=== PATIENT | female | born 1945 | race Hispanic/Latino ===

== ENCOUNTER 2016-12-03 21:07 | Inpatient (IN) | payer MEDICARE ==
--- NOTE | 2016-12-03 21:52 | ED PDOC ---
Arrival/HPI - General Chief Complaint: Abdominal Pain Time Seen by Provider: 12/03/16 21:11 Historian: Patient - History of Present Illness Narrative History of Present Illness (Text): 12/03/16 21:52 Paola Morgan is a 71 year old female, whose past medical history includes diverticulosis, valvular heart disease, and breast cancer (in remission), who presents to the Emergency department complaining of hematochezia. Patient states 1 hour prior to arrival she had 1 bright red bloody bowel movement with associated lower abdominal discomfort. Patient denies any fever, chills, chest pain, shortness of breath, nausea, vomiting, diarrhea, urinary symptoms, back pain, neck pain, headache, dizziness, or any other complaints. PMD: Dr. Judi Wilkes Time/Duration: 1 hour Symptom Course: Unchanged Activities at Onset: Light Modifying Factors (Text): none Context: Home Past Medical History - Provider Review Nursing Documentation Reviewed: Yes - Infectious Disease Hx of Infectious Diseases: None - Tetanus Immunization Tetanus Immunization: Unknown - Cardiac Other/Comment: LEAKY HEART VALVE - Pulmonary Hx Respiratory Disorders: No - Neurological Hx Neurological Disorder: No Hx Paralysis: No - HEENT Hx HEENT Disorder: No - Renal Hx Renal Disorder: No - Endocrine/Metabolic Hx Endocrine Disorders: No - Hematological/Oncological Hx Blood Transfusions: No Hx Cancer: Yes (BREAST) - Integumentary Hx Dermatological Disorder: No - Musculoskeletal/Rheumatological Hx Musculoskeletal Disorders: Yes Hx Arthritis: Yes - Genitourinary/Gynecological Hx Genitourinary Disorders: No - Psychiatric Hx Anxiety: Yes Hx Substance Use: No - Surgical History Other/Comment: BILAT MASTECTOMY - Anesthesia Hx Anesthesia: Yes - Suicidal Assessment Feels Threatened In Home Enviroment: No Family/Social History - Physician Review Nursing Documentation Reviewed: Yes Family/Social History: No Known Family HX Smoking Status: Never Smoked Hx Alcohol Use: No Hx Substance Use: No Hx Substance Use Treatment: No Allergies/Home Meds Allergies/Adverse Reactions: Allergies No Known Allergies Allergy (Verified 12/03/16 21:09) Home Medications: Home Meds Medication Instructions Recorded Confirmed Carvedilol [Coreg] 6.25 mg PO BID 08/28/16 12/03/16 Lansoprazole [Prevacid] 30 mg PO DAILY 08/28/16 12/03/16 Rosuvastatin Calcium [Crestor] 5 mg PO QPM 08/28/16 12/03/16 Review of Systems - Physician Review All systems were reviewed & negative as marked: Yes - Review of Systems Constitutional: Normal. absent: Fevers Eyes: Normal ENT: Normal Respiratory: Normal. absent: SOB, Cough Cardiovascular: Normal. absent: Other Gastrointestinal: Abdominal Pain, Hematochezia Genitourinary Female: Normal. absent: Dysuria, Frequency, Hematuria, Urine Output Changes Musculoskeletal: Normal. absent: Back Pain, Neck Pain Skin: Normal. absent: Rash Neurological: Normal. absent: Headache, Dizziness Endocrine: Normal Hemo/Lymphatic: Normal Psychiatric: Normal Physical Exam Vital Signs Reviewed: Yes Vital Signs Temp Pulse Resp BP Pulse Ox 12/04/16 02:57 92 H 16 112/72 97 12/04/16 00:45 79 18 105/57 L 97 12/03/16 21:10 97.5 F L 96 H 16 111/72 96 Temperature: Afebrile Blood Pressure: Normal Pulse: Regular Respiratory Rate: Normal Appearance: Positive for: Well-Appearing, Non-Toxic, Comfortable Pain Distress: None Mental Status: Positive for: Alert and Oriented X 3 - Systems Exam Head: Present: Atraumatic, Normocephalic Pupils: Present: PERRL Extroacular Muscles: Present: EOMI Conjunctiva: Present: Normal Mouth: Present: Moist Mucous Membranes Neck: Present: Normal Range of Motion Respiratory/Chest: Present: Clear to Auscultation, Good Air Exchange. No: Respiratory Distress, Accessory Muscle Use Cardiovascular: Present: Regular Rate and Rhythm, Normal S1, S2. No: Murmurs Abdomen: Present: Normal Bowel Sounds. No: Tenderness, Distention, Peritoneal Signs Rectal: Present: Other (Bright red blood on digital exam, no active bleeding) Back: Present: Normal Inspection Upper Extremity: Present: Normal Inspection. No: Cyanosis, Edema Lower Extremity: Present: Normal Inspection. No: Edema Neurological: Present: GCS=15, CN II-XII Intact, Speech Normal Skin: Present: Warm, Dry, Normal Color. 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 Differential Diagnosis include but are not limited to: GI bleed vs. diverticular disease Plan: -- CT Abdomen and Pelvis with IV contrast -- EKG -- Labs, blood type and screen -- IV fluids -- Protonix -- Reassess and disposition Prior Visits: Notes and results from previous visits were reviewed. On 04/04/2014, pt was seen in the Emergency department for headache. Pt was d/c home. Progress Notes: Reviewed EKG, NSR at 90 bpm. LAHB. Possible anterolateral infarct. 12/04/16 01:34 Reviewed radiology, CT Abdomen and Pelvis shows: 1. Mildly thickened appearance of the distal esophagus, correlate clinically for esophagitis. Small hiatal hernia. 2. Colonic diverticulosis. 3. Cystic 2.2 cm structure in the pancreatic neck, consider nonemergent followup. 12/04/16 01:[address] Bennett, present in Emergency department, who is aware and agrees with plan. Accepts pt in to hospitalist service. Pt will go to [facility] observation for GI bleed. 12/04/16 01:55 Case discussed with medical staff specialist supervisor photocomposition, who is aware and agrees with plan. - Lab Interpretations Lab Results: 12/03/16 22:38 12/03/16 22:38 Lab Results 12/03/16 22:38: WBC 9.6, RBC 3.99, Hgb 10.9 L, Hct 33.6 L, MCV 84.2, MCH 27.3, MCHC 32.4, RDW 15.2 H, Plt Count 190, MPV 11.1 H, PT 10.7, INR 0.99, APTT 22.1 L , Sodium 143, Potassium 3.3 L, Chloride 105, Carbon Dioxide 26, Anion Gap 15, BUN 24 H, Creatinine 1.0, Est GFR ( Amer) > 60, Est GFR (Non-Af Amer) 54 , Random Glucose 159 H, Calcium 8.7, Total Bilirubin 0.5, AST 18, ALT 29, Alkaline Phosphatase 79, Total Protein 7.4, Albumin 3.7, Globulin 3.7, Albumin/ Globulin Ratio 1.0 L 12/03/16 22:25: Blood Type A POSITIVE, Antibody Screen Negative, Crossmatch See Detail, BBK History Checked No verified bt I have reviewed the lab results: Yes - RAD Interpretation Narrative RAD Interpretations (Text): CT Abdomen and Pelvis shows: Lower thorax: Breast implants noted. Mild dependent atelectasis noted. A small hiatal hernia demonstrated. The distal esophagus appears mildly thickened. ABDOMEN: Liver: Unremarkable. No mass. Gallbladder and bile ducts: Unremarkable. No calcified stones. No ductal dilation. Pancreas: There is 2.2 cm cystic structure in the pancreatic neck. No ductal dilation. Spleen: A subcentimeter hypodensity in the spleen is present 2 small strictures. Adrenals: Unremarkable. No mass. Kidneys and ureters: There is a 2.2 cm cyst at the upper pole of the right kidney. No hydronephrosis. Stomach and bowel: Colonic diverticula are present. No obstruction. No mucosal thickening. Appendix: No findings to suggest acute appendicitis. PELVIS: Bladder: Unremarkable. No mass. Reproductive: Unremarkable as visualized. ABDOMEN and PELVIS: Intraperitoneal space: Unremarkable. No free air. No significant fluid collection. Bones/joints: Degenerative changes of the lumbar spine are present. No acute fracture. No dislocation. Soft tissues: A small fat-containing umbilical hernia is present. Vasculature: Mild aortoiliac atherosclerosis is present. No abdominal aortic aneurysm. Lymph nodes: Unremarkable. No enlarged lymph nodes. IMPRESSION: 1. Mildly thickened appearance of the distal esophagus, correlate clinically for esophagitis. Small hiatal hernia. 2. Colonic diverticulosis. 3. Cystic 2.2 cm structure in the pancreatic neck, consider nonemergent followup. Radiology Orders: 12/03/16 21:59 ABD & PELVIS IV CONTRAST ONLY [CT] Stat Lead Die Molder: Radiologist - EKG Interpretation Interpreted by ED Physician: Yes Type: 12 lead EKG - Medication Orders Current Medication Orders: Acetaminophen (Tylenol 325mg Tab) 650 mg PO Q4H PRN PRN Reason: Pain, moderate (4-7) Last Admin: 12/04/16 05:51 Dose: 650 MG MAR Pain/Vitals Document 12/04/16 05:51 FC (Rec: 12/04/16 05:51 FC [id number]) Pain Reassessment Is This A Pain ReAssessment? No Sleep Is patient sleeping during reassessment? No Presence of Pain Presence of Pain Yes Pain Scale Used Pain Scale Used Numeric Location Left, Right or Bilateral Bilateral Upper or Lower Lower Pain Location Body Site Abdomen Pain Behavior Rubbing Site Aggravating Factors None Aggravating Factors None Atorvastatin Calcium (Lipitor) 20 mg PO DIN CAREY Carvedilol (Coreg) 6.25 mg PO BID CAREY Sodium Chloride (Sodium Chloride 0.9%) 1,000 mls @ 100 mls/hr IV .Q10H CAREY Last Admin: 12/03/16 22:36 Dose: 100 MLS/HR eMAR Start Stop Document 12/03/16 22:36 YP (Rec: 12/03/16 22:36 YP [id number]) Intravenous Solution Start Date 12/03/16 Start Time 22:26 Pantoprazole Sodium (Protonix 40mg Ivpb) 100 mls @ 20 mls/hr IVPB .Q5H CAREY Last Admin: 12/04/16 12:53 Dose: 20 MLS/HR eMAR Start Stop Document 12/04/16 12:53 [email or web address] (Rec: 12/04/16 12:53 [id number] [facility] [id number]) Intravenous Solution Start Date 12/04/16 Start Time 12:53 Discontinued Medications Carvedilol (Coreg) 6.25 mg PO BID CAREY Carvedilol (Coreg) 6.25 mg PO BID CAREY Sodium Chloride (Sodium Chloride 0.9%) 500 mls @ 999 mls/hr IV .Q31M STA Stop: 12/04/16 07:04 Last Admin: 12/04/16 08:13 Dose: 999 MLS/HR eMAR Start Stop Document 12/04/16 08:13 [email or web address] (Rec: 12/04/16 08:13 [email or web address] [facility]- [employer]ING CLERK) Intravenous Solution Start Date 12/04/16 Start Time 08:13 End Date 12/04/16 End time 08:43 Total Infusion Time 30 Iohexol (Omnipaque 350 100 Ml) Confirm Administered Dose 350 mg .ROUTE .STK-MED ONE Stop: 12/03/16 23:40 Pantoprazole Sodium (Protonix Inj) 40 mg IVP ONCE STA Stop: 12/03/16 21:59 Last Admin: 12/03/16 22:27 Dose: 40 MG IVP Administration Document 12/03/16 22:27 YP (Rec: 12/03/16 22:36 YP [id number]) Charges for Administration # of IVP Administrations 1 Pantoprazole Sodium (Protonix Inj) 40 mg IVP BID STA Stop: 12/04/16 02:29 Last Admin: 12/04/16 02:50 Dose: Pantoprazole Sodium (Protonix Inj) 40 mg IVP STAT STA Stop: 12/04/16 06:34 Last Admin: 12/04/16 08:03 Dose: 40 MG IVP Administration Document 12/04/16 08:03 [email or web address] (Rec: 12/04/16 08:03 [email or web address] [facility]- [facility]ING CLERK) Charges for Administration # of IVP Administrations 1 Potassium Chloride (K-Dur 20 Meq Er Tab) 20 meq PO STAT STA Stop: 12/04/16 01:40 Last Admin: 12/04/16 02:54 Dose: 20 MEQ - Scribe Statement The provider has reviewed the documentation as recorded by the Elena Pickett Provider Attestation: All medical record entries made by the Elena were at my direction and personally dictated by me. I have reviewed the chart and agree that the record accurately reflects my personal performance of the history, physical exam, medical decision making, and the department course for this patient. I have also personally directed, reviewed, and agree with the discharge instructions and disposition. Disposition/Present on Arrival - Present on Arrival Any Indicators Present on Arrival: No History of DVT/PE: No History of Uncontrolled Diabetes: No Urinary Catheter: No History of Decub. Ulcer: No History Surgical Site Infection Following: None - Disposition Have Diagnosis and Disposition been Completed?: Yes Diagnosis: Gastrointestinal bleed Disposition: HOSPITALIZED Disposition Time: 02:00 Patient Plan: Observation Patient Problems: Current Active Problems Problem Status Diagnosed Gastrointestinal bleed Acute Condition: GOOD
[2016-12-03] MEDS: Sodium Chloride 0.9% 1,000 ML IV SCH (22:36)
[2016-12-03 22:51] LABS: HEMATOCRIT 33.6 % (36.0-48.0); MEAN CELL VOLUME 84.2 fL (80.0-105.0); MEAN CORPUSCULAR HEMOGLOBIN 27.3 pg (25.0-35.0); MEAN CORPUSCULAR HGB CONC 32.4 g/dl (31.0-37.0); MEAN PLATELET VOLUME 11.1 fl (7.0-11.0); RED CELL DISTRIBUTION WIDTH 15.2 % (11.5-14.5); WHITE BLOOD COUNT 9.6 10^3/ul (4.5-11.0)
[2016-12-03 22:58] LABS: ALKALINE PHOSPHATASE 79 U/L (38-133); ALT/SGPT 29 U/L (7-56); AST/SGOT 18 U/L (15-39); BILIRUBIN,TOTAL 0.5 mg/dL (0.2-1.3); BLOOD UREA NITROGEN 24 mg/dL (7-21); CALCIUM 8.7 mg/dL (8.4-10.5); CARBON DIOXIDE 26 mmol/L (21-33); CHLORIDE 105 mmol/L (98-107); GFR AFRICAN-AMERICAN > 60; GLUCOSE,RANDOM 159 mg/dL (70-110); POTASSIUM 3.3 mmol/L (3.6-5.0); SODIUM 143 mmol/L (132-148); TOTAL PROTEIN 7.4 g/dL (5.8-8.3)
[2016-12-03 23:04] LABS: INR 0.99 (0.93-1.08); PARTIAL THROMBOPLASTIN TIME 22.1 Seconds (23.7-30.8)
[2016-12-03] MEDS ORDERED: Iohexol 350 MG/100 ML VIAL ONE (23:39)
[2016-12-04] MEDS ORDERED: Potassium Chloride 20 mEq ER Tab PO STA (01:39)
[2016-12-04 03:47] VITALS: BMI 31.8
--- NOTE | 2016-12-04 03:48 | CP.PCM.HP ---
<Lacho Zee - Last Filed: 12/04/16 03:54> History of Present Illness - History of Present Illness History of Present Illness: This is a 71 yo female with past medical hx of GI bleed, valvular hx disease, and breast cancer presenting with hematochezia x 1 day. Pt says she was using the toilet around 7 PM. She noticed dark red blood mixed with loose stool. This happened 4-5 times, with a significant amount of blood each time. She says the blood filled up the toilet bowl. She says this happened 5 years ago and she was diagnosed with diverticula. She does not take antiplatelets or anticoagulants. Her last colonoscopy/EGD was 5 years ago and aside from the diverticula was normal. She denies fevers, chills, vomiting, diarrhea. Denies chest pain, sob, syncope. Denies urinary sx or melena. PMH: GI bleed, valvular heart dx, breast cancer in remission PSH: Mastectomy Allergies: NKDA FH: Non contributory Home meds: prevacid, crestor, coreg Social hx: Former smoker. Quit over 50 yrs ago. Smoked for just a couple of years. Denies drinking, drug us. Lives with son in [place]. Present on Admission - Present on Admission Any Indicators Present on Admission: No History of DVT/PE: No History of Uncontrolled Diabetes: No Urinary Catheter: No Decubitus Ulcer Present: No Review of Systems - Review of Systems All systems: reviewed and no additional remarkable complaints except Review of Systems: Negative except as stated in HPI. Past Patient History - Infectious Disease Hx of Infectious Diseases: None - Tetanus Immunizations Tetanus Immunization: Unknown - Past Medical History & Family History Past Medical History?: Yes Past Family History: Reviewed and not pertinent - Past Social History Smoking Status: Former Smoker Chewing Tobacco Use: No Cigar Use: No Alcohol: None Drugs: Denies Home Situation {Lives}: With Family Domestic Violence: Negative - CARDIAC Hx Cardiac Disorders: Yes Hx Hypercholesterolemia: Yes - PULMONARY Hx Respiratory Disorders: Yes Hx Bronchitis: Yes - NEUROLOGICAL Hx Neurological Disorder: No - HEENT Hx HEENT Problems: No - RENAL Hx Chronic Kidney Disease: No - ENDOCRINE/METABOLIC Hx Endocrine Disorders: No - HEMATOLOGICAL/ONCOLOGICAL Hx Blood Disorders: Yes Hx Cancer: Yes (breast cancer) Hx Chemotherapy: Yes - INTEGUMENTARY Hx Dermatological Problems: No - MUSCULOSKELETAL/RHEUMATOLOGICAL Hx Musculoskeletal Disorders: Yes Hx Arthritis: Yes - GASTROINTESTINAL Hx Gastrointestinal Disorders: Yes (hiatal hernia) Hx Diverticulitis: Yes (2011) Hx Gastroesophageal Reflux: Yes - GENITOURINARY/GYNECOLOGICAL Hx Genitourinary Disorders: No - PSYCHIATRIC Hx Psychophysiologic Disorder: No - SURGICAL HISTORY Hx Surgeries: Yes (tonsilectomy) Other/Comment: b/l mastectomy - ANESTHESIA Hx Anesthesia: Yes Meds Allergies/Adverse Reactions: Allergies Allergy/AdvReac Type Severity Reaction Status Date / Time No Known Allergies Allergy Verified 12/03/16 21:09 Physical Exam - Constitutional Appears: Non-toxic, No Acute Distress - Head Exam Head Exam: ATRAUMATIC, NORMAL INSPECTION, NORMOCEPHALIC - Eye Exam Eye Exam: EOMI - ENT Exam ENT Exam: Mucous Membranes Moist - Neck Exam Neck exam: Positive for: Normal Inspection - Respiratory Exam Respiratory Exam: Clear to Auscultation Bilateral, NORMAL BREATHING PATTERN - Cardiovascular Exam Cardiovascular Exam: REGULAR RHYTHM, +S1, +S2 - GI/Abdominal Exam GI & Abdominal Exam: Tenderness Additional comments: Mild tenderness RUQ - Extremities Exam Extremities exam: Positive for: normal inspection - Back Exam Back exam: NORMAL INSPECTION - Neurological Exam Neurological exam: Alert, CN II-XII Intact, Oriented x3 - Psychiatric Exam Psychiatric exam: Normal Affect, Normal Mood - Skin Skin Exam: Dry, Intact, Normal Color, Warm Results - Vital Signs Recent Vital Signs: Last Vital Signs Temp 97.5 F L 12/03/16 21:10 Pulse 92 H 12/04/16 02:57 Resp 16 12/04/16 02:57 BP 112/72 12/04/16 02:57 Pulse Ox 97 12/04/16 02:57 - Labs Result Diagrams: 12/03/16 22:38 12/03/16 22:38 Assessment & Plan - Assessment and Plan (Free Text) Assessment: This is a 71 yo female with past medical hx valvular heart disease, GI bleed, breast cancer presenting with hematochezia x 1 day. 1. GI bleed/hematochezia -ct shows diverticulosis, esophagitis, cystic structure 2.2 cm pancreatic neck -GI consult. Dr. Kam. recs appreciated. -protonix BID -hold home beta bobby -NS 100 cc/hr -serial CBCs, no blood transfusion indicated at this time -pt is hemodynamically stable. -no leukocytosis, pt is afebrile, no distress -UA pending 2. Hx of HLD -continue home statin 3. hx of valvular heart disease -cardio consult. Dr. Barber. recs appreciated -hold home beta bobby 4. hx of breast cancer -continue to monitor 5. GI/DVT ppx -protonix -SCDs Discussed with Dr. Bennett <Alpesh Bennett Q - Last Filed: 12/07/16 01:58> Results - Vital Signs Recent Vital Signs: Last Vital Signs Temp 98.6 F 12/07/16 01:50 Pulse 87 12/07/16 01:50 Resp 20 12/07/16 01:50 BP 121/86 12/07/16 01:50 Pulse Ox 97 12/07/16 00:01 - Labs Result Diagrams: 12/07/16 01:20 12/06/16 17:47 Labs: Laboratory Results - last 24 hr 12/06/16 12/06/16 12/06/16 06:50 11:52 17:47 WBC 8.4 RBC 3.13 L Hgb 9.2 L 8.3 L Hct 26.6 L MCV 85.0 MCH 29.4 MCHC 34.6 RDW 15.3 H Plt Count 96 L MPV 10.7 Gran % 75.7 H Lymph % (Auto) 14.8 L [place] % (Auto) 7.3 H Eos % (Auto) 1.7 Baso % (Auto) 0.5 Gran # 6.35 Lymph # 1.2 [place] # 0.6 Eos # 0.1 Baso # 0.04 PT 11.4 INR 1.06 APTT 23.1 L Sodium 139 137 Potassium 3.4 L 3.7 Chloride 110 106 Carbon Dioxide 22 24 Anion Gap 10 11 BUN 9 12 Creatinine 0.6 0.7 Est GFR ( Amer) > 60 > 60 Est GFR (Non-Af Amer) > 60 > 60 Random Glucose 87 82 Lactic Acid Calcium 6.9 L* 8.0 L Phosphorus 2.7 2.6 Magnesium 1.8 1.9 Total Bilirubin 0.7 0.5 AST 14 L 30 ALT 27 36 Alkaline Phosphatase 35 L 45 Troponin I Total Protein 3.9 L 5.2 L Albumin 1.9 L 2.7 L Globulin 2.0 2.6 Albumin/Globulin Ratio 1.0 L 1.0 L Blood Type Antibody Screen Crossmatch BBK History Checked 12/06/16 12/06/16 12/06/16 18:00 20:00 22:57 WBC 7.8 7.5 RBC 2.39 L 2.14 L Hgb 7.1 L 6.3 L* 6.9 L* Hct 20.0 L* 18.1 L* 19.9 L* MCV 83.7 84.6 MCH 29.7 29.4 MCHC 35.5 34.8 RDW 15.5 H 15.8 H Plt Count 146 167 MPV 9.8 9.1 Gran % 78.9 H 76.1 H Lymph % (Auto) 14.5 L 16.3 L [place] % (Auto) 4.9 5.8 Eos % (Auto) 1.4 L 1.5 Baso % (Auto) 0.3 0.3 Gran # 6.12 5.73 Lymph # 1.1 L 1.2 [place] # 0.4 0.4 Eos # 0.1 0.1 Baso # 0.02 0.02 PT INR APTT Sodium Potassium Chloride Carbon Dioxide Anion Gap BUN Creatinine Est GFR ( Amer) Est GFR (Non-Af Amer) Random Glucose Lactic Acid 0.9 Calcium Phosphorus Magnesium Total Bilirubin AST ALT Alkaline Phosphatase Troponin I 0.08 D Total Protein Albumin Globulin Albumin/Globulin Ratio Blood Type A POSITIVE Antibody Screen Negative Crossmatch See Detail BBK History Checked Patient has bt 12/07/16 01:20 WBC RBC Hgb 7.6 L Hct 21.7 L MCV MCH MCHC RDW Plt Count MPV Gran % Lymph % (Auto) [place] % (Auto) Eos % (Auto) Baso % (Auto) Gran # Lymph # [place] # Eos # Baso # PT INR APTT Sodium Potassium Chloride Carbon Dioxide Anion Gap BUN Creatinine Est GFR ( Amer) Est GFR (Non-Af Amer) Random Glucose Lactic Acid Calcium Phosphorus Magnesium Total Bilirubin AST ALT Alkaline Phosphatase Troponin I Total Protein Albumin Globulin Albumin/Globulin Ratio Blood Type Antibody Screen Crossmatch BBK History Checked Attending/Attestation - Attestation I have personally seen and examined this patient.: Yes I have fully participated in the care of the patient.: Yes I have reviewed all pertinent clinical information: Yes Notes (Text): 12/07/16 01:57 Late Entry: Patient initially examined in the ED and was hemodynamically stable , had one bowel movement with blood and was normotensive so she was admitted to the medical floor. During the same shift, the patient had an additional bowel movement, became light headed and hypotensive into the 60's, so she was immediately upgraded to the ICU and started on blood transfusions with a bleeding scan pending at the time my shift was over. I endorsed the case to Dr. Bety Travis (daytime machine precision etcher) who continued to manage the patient.
[2016-12-04] MEDS ORDERED: Sodium Chloride 0.9% 500 ML IV STA (06:34)
--- NOTE | 2016-12-04 07:21 | CP.PCM.PN ---
<Lacho Zee - Last Filed: 12/04/16 07:17> Subjective - Date & Time of Evaluation Date of Evaluation: 12/04/16 Time of Evaluation: 07:15 - Subjective Subjective: Rapid response note. Rapid response called. Pt admitted earlier in morning with hematochezia. Pt was using toilet. Had large bloody BM and near syncope. BP was hypotensive with heart rate in 80s. Pt did not lose consciousness. D dimer, vbg, type and cross match, 2 units ordered for transfusion. Pt being transferred to ICU. Objective - Vital Signs/Intake and Output Vital Signs (last 24 hours): Temp Pulse Resp BP Pulse Ox 98.2 F 89 20 112/70 96 12/04/16 03:30 12/04/16 03:30 12/04/16 03:34 12/04/16 03:30 12/04/16 03:30 - Medications Medications: Current Medications Acetaminophen (Tylenol 325mg Tab) 650 mg PO Q4H PRN PRN Reason: Pain, moderate (4-7) Last Admin: 12/04/16 05:51 Dose: 650 mg Atorvastatin Calcium (Lipitor) 20 mg PO DIN CAREY Sodium Chloride (Sodium Chloride 0.9%) 1,000 mls @ 100 mls/hr IV .Q10H CAREY Last Admin: 12/03/16 22:36 Dose: 100 mls/hr Pantoprazole Sodium (Protonix 40mg Ivpb) 100 mls @ 20 mls/hr IVPB .Q5H CAREY - Labs Labs: PT 10.7 Seconds (9.9-11.8) 12/03/16 22:38 INR 0.99 (0.93-1.08) 12/03/16 22:38 APTT 22.1 Seconds (23.7-30.8) L 12/03/16 22:38 - Constitutional Appears: In Acute Distress - Head Exam Head Exam: ATRAUMATIC, NORMAL INSPECTION, NORMOCEPHALIC - Eye Exam Eye Exam: EOMI - ENT Exam ENT Exam: Mucous Membranes Moist - Neck Exam Neck Exam: Full ROM, Normal Inspection. absent: Lymphadenopathy - Respiratory Exam Respiratory Exam: Clear to Ausculation Bilateral, NORMAL BREATHING PATTERN - Cardiovascular Exam Cardiovascular Exam: +S1, +S2 - GI/Abdominal Exam GI & Abdominal Exam: Soft, Normal Bowel Sounds. absent: Tenderness - Rectal Exam Rectal Exam: Bloody Stool - Extremities Exam Extremities Exam: Full ROM, Normal Capillary Refill, Normal Inspection. absent : Joint Swelling, Pedal Edema - Back Exam Back Exam: NORMAL INSPECTION - Neurological Exam Neurological Exam: Alert, Awake, Oriented x3 - Psychiatric Exam Psychiatric exam: Normal Affect, Normal Mood - Skin Skin Exam: Dry, Intact, Normal Color, Warm Assessment and Plan - Assessment and Plan (Free Text) Assessment: This is a 71 yo female with past medical hx valvular heart disease, diverticulosis, breast cancer presenting with hematochezia, admitted for GI bleed. Rapid response called. 1. Active GI bleed -stat CBC -transfer to ICU -type and cross match -transfuse 2 units - 1 unit FFP ordered -stat VBG shock panel -d dimer pending -troponin pending -1 bolus of 500 cc NS -started on protonix drip -bleeding scan ordered -called placed to Dr. Kam discussed with Dr. Amador <Catherine Amador - Last Filed: 12/04/16 19:19> Subjective - Date & Time of Evaluation Date of Evaluation: 12/04/16 Time of Evaluation: 19:17 - Subjective Subjective: Responded to WOOD BOATBUILDER APPRENTICE call promptly. Seen patient with medical research associate. Agree with assessment , treatment. Spoke to ,. Patient was transferred to CCU. CC time spent 35 minutes. Objective - Vital Signs/Intake and Output Vital Signs (last 24 hours): Temp Pulse Resp BP Pulse Ox 98 F 83 29 H 104/86 97 12/04/16 14:13 12/04/16 18:46 12/04/16 18:46 12/04/16 18:46 12/04/16 18:46 Intake and Output: 12/04/16 12/05/16 18:59 06:59 Intake Total 625 Balance 625 - Medications Medications: Current Medications Acetaminophen (Tylenol 325mg Tab) 650 mg PO Q4H PRN PRN Reason: Pain, moderate (4-7) Last Admin: 12/04/16 05:51 Dose: 650 mg Atorvastatin Calcium (Lipitor) 20 mg PO DIN [facility] Last Admin: 12/04/16 17:28 Dose: Not Given Carvedilol (Coreg) 6.25 mg PO BID [facility] Last Admin: 12/04/16 17:29 Dose: Not Given Sodium Chloride (Sodium Chloride 0.9%) 1,000 mls @ 100 mls/hr IV .Q10H CAREY Last Admin: 12/03/16 22:36 Dose: 100 mls/hr Pantoprazole Sodium (Protonix 40mg Ivpb) 100 mls @ 20 mls/hr IVPB .Q5H CAREY Last Admin: 12/04/16 12:53 Dose: 20 mls/hr - Labs Labs: 12/04/16 15:19 12/04/16 07:30 PT 11.3 Seconds (9.9-11.8) 12/04/16 08:40 INR 1.05 (0.93-1.08) 12/04/16 08:40 APTT 22.2 Seconds (23.7-30.8) L 12/04/16 08:40
[2016-12-04 07:34] LABS: HEMATOCRIT 27.7 % (36.0-48.0); MEAN CORPUSCULAR HEMOGLOBIN 27.3 pg (25.0-35.0); MEAN CORPUSCULAR HGB CONC 32.1 g/dl (31.0-37.0); MEAN PLATELET VOLUME 11.6 fl (7.0-11.0); RED CELL DISTRIBUTION WIDTH 15.5 % (11.5-14.5); WHITE BLOOD COUNT 7.6 10^3/ul (4.5-11.0)
[2016-12-04 07:46] LABS: ALB/GLOB RATIO 1.1 (1.1-1.8); ALKALINE PHOSPHATASE 74 U/L (38-133); ALT/SGPT 30 U/L (7-56); AST/SGOT 14 U/L (15-39); BILIRUBIN,TOTAL 0.5 mg/dL (0.2-1.3); BLOOD UREA NITROGEN 21 mg/dL (7-21); CALCIUM 8.2 mg/dL (8.4-10.5); CARBON DIOXIDE 20 mmol/L (21-33); CHLORIDE 110 mmol/L (98-107); GFR AFRICAN-AMERICAN > 60; GLUCOSE,RANDOM 123 mg/dL (70-110); SODIUM 143 mmol/L (132-148); TOTAL PROTEIN 6.4 g/dL (5.8-8.3)
[2016-12-04] MEDS: Pantoprazole 40mg/100ml IVPB 100 ML IVPB SCH ×3 (07:53→19:34)
[2016-12-04 08:01] LABS: TROPONIN I < 0.01 ng/mL
[2016-12-04 08:58] LABS: VENOUS BLOOD GAS BASE EXCESS -3.9 mmol/L (0.0-2.0); VENOUS BLOOD PH 7.26 (7.32-7.43)
--- NOTE | 2016-12-04 08:58 | CP.PCM.CON ---
History of Present Illness - History of Present Illness History of Present Illness: General Surgery Consult Note for Dr. Radford CC: Bright red blood per rectum X 1 day HPI: This is a 71F with a PMH of Breast cancer and diverticulosis who presented to [facility] ED last night due to a bloody BM and weakness that started around 7: 00pm. She reports a minor episode in the past of self limited bleeding per rectum. She reports mild pain in her lower abdomen. She denies any nausea or vomiting, chest pain, SOB. PMH: See Above PSH: Mastectomy ALL: NKDA Social: Denies Tobacco, ETOH, Drugs Review of Systems - Constitutional Constitutional: Weakness. absent: Anorexia, Chills - EENT Eyes: absent: Blurred Vision, Change in Vision Ears: Dizziness. absent: Ear Discharge Nose/Mouth/Throat: absent: Nasal Discharge - Breasts Breasts: absent: Change in Shape - Cardiovascular Cardiovascular: Syncope. absent: Chest Pain, Dyspnea - Respiratory Respiratory: absent: Dyspnea - Gastrointestinal Gastrointestinal: Abdominal Pain, Hematochezia. absent: Hematemesis - Genitourinary Genitourinary: absent: Difficulty Urinating Past Patient History - Infectious Disease Hx of Infectious Diseases: None - Tetanus Immunizations Tetanus Immunization: Unknown - Past Medical History & Family History Past Medical History?: Yes Past Family History: Reviewed and not pertinent - Past Social History Smoking Status: Former Smoker Chewing Tobacco Use: No Cigar Use: No Alcohol: None Drugs: Denies Home Situation {Lives}: With Family Domestic Violence: Negative - CARDIAC Hx Cardiac Disorders: Yes Hx Hypercholesterolemia: Yes - PULMONARY Hx Respiratory Disorders: Yes Hx Bronchitis: Yes - NEUROLOGICAL Hx Neurological Disorder: No - HEENT Hx HEENT Problems: No - RENAL Hx Chronic Kidney Disease: No - ENDOCRINE/METABOLIC Hx Endocrine Disorders: No - HEMATOLOGICAL/ONCOLOGICAL Hx Blood Disorders: Yes Hx Cancer: Yes (breast cancer) Hx Chemotherapy: Yes - INTEGUMENTARY Hx Dermatological Problems: No - MUSCULOSKELETAL/RHEUMATOLOGICAL Hx Musculoskeletal Disorders: Yes Hx Arthritis: Yes - GASTROINTESTINAL Hx Gastrointestinal Disorders: Yes (hiatal hernia) Hx Diverticulitis: Yes (2011) Hx Gastroesophageal Reflux: Yes - GENITOURINARY/GYNECOLOGICAL Hx Genitourinary Disorders: No - PSYCHIATRIC Hx Psychophysiologic Disorder: No - SURGICAL HISTORY Hx Surgeries: Yes (tonsilectomy) Other/Comment: b/l mastectomy - ANESTHESIA Hx Anesthesia: Yes Meds Allergies/Adverse Reactions: Allergies Allergy/AdvReac Type Severity Reaction Status Date / Time No Known Allergies Allergy Verified 12/03/16 21:09 - Medications Medications: Current Medications Acetaminophen (Tylenol 325mg Tab) 650 mg PO Q4H PRN PRN Reason: Pain, moderate (4-7) Last Admin: 12/04/16 05:51 Dose: 650 mg Atorvastatin Calcium (Lipitor) 20 mg PO DIN C[facility] Sodium Chloride (Sodium Chloride 0.9%) 1,000 mls @ 100 mls/hr IV .Q10H [facility] Last Admin: 12/03/16 22:36 Dose: 100 mls/hr Pantoprazole Sodium (Protonix 40mg Ivpb) 100 mls @ 20 mls/hr IVPB .Q5H [facility] Last Admin: 12/04/16 07:53 Dose: 20 mls/hr Physical Exam - Constitutional Appears: Non-toxic - Head Exam Head Exam: ATRAUMATIC, NORMOCEPHALIC - Eye Exam Eye Exam: EOMI, Normal appearance Additional comments: Conjunctival Palor - Neck Exam Neck exam: Positive for: Normal Inspection - Respiratory Exam Respiratory Exam: NORMAL BREATHING PATTERN - Cardiovascular Exam Cardiovascular Exam: +S1, +S2 - GI/Abdominal Exam GI & Abdominal Exam: Soft. absent: Distended, Firm - Neurological Exam Neurological exam: Alert, Oriented x3 - Psychiatric Exam Psychiatric exam: Normal Affect, Normal Mood Results - Vital Signs Recent Vital Signs: Last Vital Signs Temp 98.2 F 12/04/16 03:30 Pulse 89 12/04/16 03:30 Resp 20 12/04/16 03:34 BP 112/70 12/04/16 03:30 Pulse Ox 96 12/04/16 03:30 - Labs Result Diagrams: 12/04/16 07:30 12/04/16 07:30 Labs: Laboratory Results - last 24 hr 12/04/16 12/04/16 02:00 07:30 WBC 7.6 D RBC 3.26 L Hgb 8.9 L Hct 27.7 L MCV 85.0 MCH 27.3 MCHC 32.1 RDW 15.5 H Plt Count 164 MPV 11.6 H Sodium 143 Potassium 4.0 Chloride 110 H Carbon Dioxide 20 L Anion Gap 17 BUN 21 Creatinine 0.7 Est GFR ( Amer) > 60 Est GFR (Non-Af Amer) > 60 Random Glucose 123 H Calcium 8.2 L Total Bilirubin 0.5 AST 14 L ALT 30 Alkaline Phosphatase 74 Troponin I < 0.01 Total Protein 6.4 Albumin 3.3 Globulin 3.1 Albumin/Globulin Ratio 1.1 Blood Type Confirm A POSITIVE Assessment & Plan - Assessment and Plan (Free Text) Assessment: This is a 71F with a PMH of Breast CA and Diverticulosis who presented with a GI bleed. Follow up bleeding scan Follow up GI Recs Continue management per ICU team 4 units blood ordered, followup H/H transfuse as necessary 8.9/27.2 Continue to follow Discussed with Dr. Prabhakar Wesley PGY-1
[2016-12-04 09:12] LABS: INR 1.05 (0.93-1.08); PARTIAL THROMBOPLASTIN TIME 22.2 Seconds (23.7-30.8)
[2016-12-04] MEDS: Sodium Chloride 0.9% 1,000 ML IV SCH (09:34)
--- NOTE | 2016-12-04 11:22 | CON ---
DATE: 12/04/2016 REQUESTING PHYSICIAN: Dr. Damon. REASON FOR CONSULTATION: Abnormal electrocardiogram. Known valvular heart disease. HISTORY OF PRESENT ILLNESS: This is a 71-year-old woman well known to us with a history of mitral re gurgitation who presented with lower abdominal pain and hematochezia. She has a history of diverticu losis in the past. Initial hemoglobin was 10.9, repeat is 8.9. She is currently seen in the CCU and is hemodynamically stable. She is scheduled for bleeding scan. PAST MEDICAL HISTORY: Notable for moderate mitral regurgitation and hyperlipidemia. She has a histo ry of breast cancer for which she underwent mastectomy and reconstructive surgery in 2004. She also has chronic bronchitis and gastroesophageal reflux disease. MEDICATIONS: At home include carvedilol 6.25 mg b.i.d., Crestor 5 mg daily, Prevacid 30 mg daily, Xa nax p.r.n. and vitamin supplements. ALLERGIES: She has no reported allergies. SOCIAL HISTORY: She does not smoke or drink. FAMILY HISTORY: Both parents are from age-related illness. REVIEW OF SYSTEMS: A 10 point review of systems is notable mainly for the problems mentioned above. PHYSICAL EXAMINATION: GENERAL: She is a middle-aged woman who appears comfortable at rest, but somewhat anxious. VITAL SIGNS: Her blood pressure is 96/62 with a pulse of 78 and regular, respirations are 16. She i s currently afebrile. HEENT: Normocephalic, atraumatic. Pupils equally reactive to light and accommodation. NECK: Supple. No JVD noted. CHEST: Few scattered rhonchi heard. HEART: PMI is displaced laterally with a systolic murmur present at the apex radiating to axilla. ABDOMEN: Soft, mildly protuberant with bilateral lower quadrant tenderness present. Bowel sounds ar e present. EXTREMITIES: No edema. SKIN: Warm and dry. PSYCHIATRIC: Moderate anxiety, otherwise normal mood and affect. DIAGNOSTIC DATA: White count 7.6, hemoglobin and hematocrit 8.9 and 27.7. There were 10.9 and 33.6 on presentation. A platelet count 164,000. PT, PTT 11.3 and 22.2. D-dimer 1.2. Potassium 4.0, BUN and creatinine 21 and 0.7. Chest x-ray is not found in the system. Electrocardiogram reveals sinus rhythm with a left anterior hemiblock and T-wave inversions across the precordium. IMPRESSION: 1. Apparent lower gastrointestinal bleeding, possibly due to diverticular disease. 2. Moderate mitral regurgitation, clinically stable at present. 3. Rest of problems as noted. RECOMMENDATIONS: Current medications can be continued for now. Carvedilol will be held if systolic blood pressure is less than 110. Further recommendations will be made based upon her clinical course and the results of her workup. We will continue to follow along and make further recommendations as appropriate. Efraín Quintero MD cc: [id number] TT: 12/04/2016 11:21:40 Confirmation # [id number] Dictation # [id number]
--- NOTE | 2016-12-04 12:14 | NM ---
PROCEDURE: Nuclear medicine gastrointestinal bleeding scan. HISTORY: active gi bleed, post rapid response COMPARISON: CT scan same day TECHNIQUE: 4 cc of patient blood was withdrawn and mixed with 21 mCi of technetium ultra tagged. Images of the abdomen and pelvis were obtained in the anterior projection at 1 min intervals over a period of 45 min. FINDINGS: There is abnormal accumulation of the radionuclide near the midline in the region of the sigmoid colon. Physiologic activity was seen in the heart, liver, spleen and blood vessels. IMPRESSION: Active GI bleed in the sigmoid colon
--- NOTE | 2016-12-04 12:41 | CP.CCUPN ---
CCU Subjective - Physician Review Events Since Last Encounter (Free Text): 12/04/16 12:37 Early this morning the patient was brought to the ICU due to BRBPR in the setting of presumed diverticulosis @BM overnight. Currently has mild pain and is being transfused 2units PRBC CCU Objective - Vital Signs / Intake & Output Vital Signs (Last 4 hours): Vital Signs Temp Pulse Resp BP Pulse Ox 12/04/16 12:03 97.9 F 72 16 99/45 L 12/04/16 11:48 97.8 F 74 19 106/39 L 12/04/16 11:47 72 16 106/39 L 100 12/04/16 11:36 97.8 F 72 18 104/85 12/04/16 11:33 80 19 104/85 100 12/04/16 11:32 42 H 12/04/16 09:51 97.8 F 78 18 96/62 L 12/04/16 09:21 69 16 12/04/16 09:15 71 17 96/68 L 97 12/04/16 09:06 97.8 F 74 16 92/65 L 99 12/04/16 08:51 97.8 F 68 24 124/70 Intake and Output (Last 8hrs): Intake & Output 12/03/16 12/04/16 12/04/16 22:59 06:59 14:59 Intake Total 320 Balance 320 Weight 180 lb Intake: Blood Product 320 Red Blood Cells Cpd As1 320 Lr Unit [id number] Red Blood Cells Cpd As1 0 Lr Unit [id number] Other: Voiding Method Indwelling Catheter - Physical Exam Head: Positive for: Atraumatic, Normocephalic Pupils: Positive for: PERRL Extroacular Muscles: Positive for: EOMI Conjunctiva: Positive for: Normal Mouth: Positive for: Moist Mucous Membranes Neck: Positive for: Normal Range of Motion Respiratory/Chest: Positive for: Clear to Auscultation, Good Air Exchange. Negative for: Respiratory Distress, Accessory Muscle Use Cardiovascular: Positive for: Regular Rate and Rhythm, Normal S1, S2. Negative for: Murmurs Abdomen: Positive for: Normal Bowel Sounds. Negative for: Tenderness, Distention, Peritoneal Signs Rectal: Positive for: Other (Bright red blood on digital exam, no active bleeding) Back: Positive for: Normal Inspection Upper Extremity: Positive for: Normal Inspection. Negative for: Cyanosis, Edema Lower Extremity: Positive for: Normal Inspection. Negative for: Edema Neurological: Positive for: GCS=15, CN II-XII Intact, Speech Normal Skin: Positive for: Warm, Dry, Normal Color. Negative for: Rashes Psychiatric: Positive for: Alert, Oriented x 3, Normal Insight, Normal Concentration - Medications Active Medications: Active Medications Generic Name Dose Route Start Last Admin Trade Name Freq PRN Reason Stop Dose Admin Acetaminophen 650 mg 12/04/16 05:43 12/04/16 05:51 Tylenol 325mg Tab PO 650 mg Q4H PRN Administration Pain, moderate (4-7) Atorvastatin Calcium 20 mg 12/04/16 17:00 Lipitor PO DIN CAREY Carvedilol 6.25 mg 12/04/16 18:00 Coreg PO BID CAREY Sodium Chloride 1,000 mls @ 100 mls/hr 12/03/16 22:00 12/03/16 22:36 Sodium Chloride 0.9% IV 100 mls/hr .Q10H C[facility] Administration Pantoprazole Sodium 100 mls @ 20 mls/hr 12/04/16 07:00 12/04/16 07:53 Protonix 40mg Ivpb IVPB 20 mls/hr .Q5H C[facility] Administration - Patient Studies Lab Studies: Lab Studies 12/04/16 12/04/16 12/04/16 Range/Units 08:40 07:30 02:00 WBC 7.6 D (4.5-11.0) 10^3/ul RBC 3.26 L (3.5-6.1) 10^6/uL Hgb 8.9 L (12.0-16.0) gm/dL Hct 27.7 L (36.0-48.0) % MCV 85.0 (80.0-105.0) fL MCH 27.3 (25.0-35.0) pg MCHC 32.1 (31.0-37.0) g/dl RDW 15.5 H (11.5-14.5) % Plt Count 164 (120.0-450.0) 10^3/uL MPV 11.6 H (7.0-11.0) fl PT 11.3 (9.9-11.8) Seconds INR 1.05 (0.93-1.08) APTT 22.2 L (23.7-30.8) Seconds D-Dimer, Quantitative 1.27 H (0-0.50) mg/L FEU pO2 67 H (30-55) mm/Hg VBG pH 7.26 L (7.32-7.43) VBG pCO2 53.0 (40-60) VBG HCO3 23.8 (21-28) mmol/l VBG Total CO2 25.4 (22-28) mmol.L VBG O2 Sat (Calc) 94.4 H (40-65) % VBG Base Excess -3.9 L (0.0-2.0) mmol/L VBG Potassium 3.7 (3.6-5.2) mmol/L Sodium 146.0 143 (132-148) mmol/L Chloride 115.0 H 110 H (98-107) mmol/L Glucose 106 H (65-105) mg/dl Lactate 2.2 H (0.7-2.1) mmol/L FiO2 21.0 % Potassium 4.0 (3.6-5.0) mmol/L Carbon Dioxide 20 L (21-33) mmol/L Anion Gap 17 (10-20) BUN 21 (7-21) mg/dL Creatinine 0.7 (0.5-1.4) mg/dL Est GFR ( Amer) > 60 Est GFR (Non-Af Amer) > 60 Random Glucose 123 H (70-110) mg/dL Calcium 8.2 L (8.4-10.5) mg/dL Total Bilirubin 0.5 (0.2-1.3) mg/dL AST 14 L (15-39) U/L ALT 30 (7-56) U/L Alkaline Phosphatase 74 (38-133) U/L Troponin I < 0.01 ng/mL Total Protein 6.4 (5.8-8.3) g/dL Albumin 3.3 (3.0-4.8) g/dL Globulin 3.1 gm/dL Albumin/Globulin Ratio 1.1 (1.1-1.8) Venous Blood Potassium 3.7 (3.6-5.2) mmol/L Blood Type Confirm A POSITIVE Laboratory Results - last 24 hr 12/04/16 12/04/16 12/04/16 02:00 07:30 08:40 WBC 7.6 D RBC 3.26 L Hgb 8.9 L Hct 27.7 L MCV 85.0 MCH 27.3 MCHC 32.1 RDW 15.5 H Plt Count 164 MPV 11.6 H PT 11.3 INR 1.05 APTT 22.2 L D-Dimer, Quantitative 1.27 H pO2 67 H VBG pH 7.26 L VBG pCO2 53.0 VBG HCO3 23.8 VBG Total CO2 25.4 VBG O2 Sat (Calc) 94.4 H VBG Base Excess -3.9 L VBG Potassium 3.7 Glucose 106 H Lactate 2.2 H FiO2 21.0 Sodium 143 146.0 Potassium 4.0 Chloride 110 H 115.0 H Carbon Dioxide 20 L Anion Gap 17 BUN 21 Creatinine 0.7 Est GFR ( Amer) > 60 Est GFR (Non-Af Amer) > 60 Random Glucose 123 H Calcium 8.2 L Total Bilirubin 0.5 AST 14 L ALT 30 Alkaline Phosphatase 74 Troponin I < 0.01 Total Protein 6.4 Albumin 3.3 Globulin 3.1 Albumin/Globulin Ratio 1.1 Venous Blood Potassium 3.7 Blood Type Confirm A POSITIVE EKG/Cardiology Studies: Cardiology / EKG Studies 12/04/16 06:40 EKG [ELECTROCARDIOGRAM] Stat Comment: stat ekg Reason For Exam: rapid response Critical Care Progress Note - Ventilator Checklist Daily Sedation Vacation: Yes PUD Prophalyxis: Yes DVT Prophylaxis: Yes Assessment/Plan - Assessment and Plan (Free Text) Assessment: 71 y/o F with Diverticulosis admitted for BRBPR Currently being transfused 2 units PRBC Bleeding scan was performed showing brisk bleed in the Sigmoid colon GI Aware and has possible plans for EGD PPI on board, off all anticoagulants Surgery team to see the patient if need be for colectomy. Keep HGB > 7.0 unless brisk massive bleed. PRBC on hold Platelets > 50K NPO, NGT was not agreeable per patient SCD DVT P cc time 55 min
--- NOTE | 2016-12-04 13:09 | CT ---
CT scan lumbar spine dated the 12/03/2016 History: Lumbar pain. Axial computed tomography images were obtained of the lumbar spine without the use of intravenous contrast. Coronal and sagittal reformatted images were created and reviewed. . No prior study available for comparison. Radiation dose: Total exam DLP = the the the the 174.25 mGy-cm. This CT exam was performed using one or more of the following dose reduction techniques: Automated exposure control, adjustment of the mA and/or kV according to patient size, and/or use of iterative reconstruction tech technique. . Findings: The current study reveals chronic appearing superior endplate compression deformity of the L1 segment with mild retropulsion of the posterior superior cortex which diminishes the AP diameter of the canal slightly however the overall diameter is quite capacious despite the retropulsed fragments. The remaining vertebral bodies otherwise exhibit normal stature aside from mild fish-mouth endplate deformities involving the inferior T12 as well as the superior/inferior L2 and superior L3 segments. There is a mild levoscoliosis centered at the L3-L4 level. Vertebral bodies otherwise normally aligned. No suspicious appearing lytic or blastic lesions. Multilevel degenerative spondylosis is present. At the L5-S1 level, there is marked disc space narrowing more so along the posterior disc margin with vacuum disc phenomena mild endplate irregularity/sclerosis. Minimal broad-based bulge of the posterior annulus results in some flattening of the ventral surface of the thecal sac. Central canal is marginal to minimally narrowed. Facets are hypertrophic. Exit foramina are narrowed bilaterally. At the L 4 L5 level, there is also marked disc space narrowing and vacuum disc phenomena with mild cortical endplate irregularity/sclerosis. The facet joints are hypertrophic and ligamentum flavum buckled. Central canal is mild -moderately narrowed. Exit foramina are narrowed on the right and marginal to minimally narrowed proximally on the left. At the L3 L4 level, there is also marked disc space narrowing with vacuum disc phenomena and cortical endplate irregularity/ sclerosis. Small broad-based disc bulge ridge complex with hypertrophic facets and buckled ligamentum flavum result in moderate central canal stenosis. Exit foramina are [id number] narrowed on the left and marginal to mildly narrowed on the right. . At the L2-L3 level, there is minor posterior disc space narrowing. Small asymmetric disk bulge results in mild bilateral compressive effects along the anterolateral borders of the thecal sac. The overall central canal is adequate. Facets are hypertrophic. Exit foramina are also adequate. Note made of vacuum phenomena within both SI joints with minimal sclerosis Moderate size cyst posterior upper pole left kidney with small cysts upper pole and parapelvic region right kidney. Followup renal ultrasound could be performed for further evaluation if necessary. Impression: Chronic appearing compression deformity superior L1 endplate. 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 Multilevel degenerative spondylosis.
[2016-12-04 15:25] LABS: HEMATOCRIT 27.8 % (36.0-48.0); MEAN CELL VOLUME 83.7 fL (80.0-105.0); MEAN CORPUSCULAR HEMOGLOBIN 28.3 pg (25.0-35.0); MEAN CORPUSCULAR HGB CONC 33.8 g/dl (31.0-37.0); MEAN PLATELET VOLUME 10.6 fl (7.0-11.0); RED CELL DISTRIBUTION WIDTH 14.8 % (11.5-14.5)
[2016-12-04 15:39] LABS: VENOUS BLOOD GAS BASE EXCESS -0.8 mmol/L (0.0-2.0); VENOUS BLOOD PH 7.42 (7.32-7.43)
--- NOTE | 2016-12-04 16:47 | CARD ---
APPROVED REPORT EKG Measurement Heart [id number] <Conclusion> Normal sinus rhythm Left anterior fascicular block Anterior infarct, age undetermined ST & T wave abnormality, consider lateral ischemia Abnormal ECG
--- NOTE | 2016-12-04 16:50 | CARD ---
APPROVED REPORT EKG Measurement Heart [id number] [id number] <Conclusion> Normal sinus rhythm Left anterior fascicular block Cannot rule out Inferior infarct (masked by fascicular block?), age undetermined Possible Anterolateral infarct, age undetermined Abnormal ECG
[2016-12-04] MEDS ORDERED: Non Formulary Medication (Rosuvastatin Calcium [Crestor] 5 MG) PO SCH (18:00)
[2016-12-04 21:31] LABS: HEMATOCRIT 25.6 % (36.0-48.0); MEAN CELL VOLUME 84.5 fL (80.0-105.0); MEAN CORPUSCULAR HEMOGLOBIN 27.7 pg (25.0-35.0); MEAN CORPUSCULAR HGB CONC 32.8 g/dl (31.0-37.0); MEAN PLATELET VOLUME 11.1 fl (7.0-11.0); RED CELL DISTRIBUTION WIDTH 15.2 % (11.5-14.5); WHITE BLOOD COUNT 7.6 10^3/ul (4.5-11.0)
[2016-12-05] MEDS: Sodium Chloride 0.9% 1,000 ML IV SCH ×4 (01:12→15:30)
[2016-12-05] MEDS: Pantoprazole 40mg/100ml IVPB 100 ML IVPB SCH ×5 (01:13→23:17)
[2016-12-05] MEDS ORDERED: Sodium Chloride 0.9% 1,000 ML IV SCH (03:15)
[2016-12-05] MEDS ORDERED: Peg-Electrolyte Oral Soln 4L (Golytely) PO ONE ×2 (06:20→13:16)
[2016-12-05 07:56] LABS: ADD MANUAL DIFF? NO
[2016-12-05 07:59] LABS: BASO # 0.02 K/mm3 (0.0-2.0); BASO % 0.2 % (0.0-3.0); EOS # 0.1 (0.0-0.7); EOS % 1.1 % (1.5-5.0); GRAN % 74.6 % (50.0-68.0); HEMATOCRIT 27.8 % (36.0-48.0); LYMPH # 1.5 (1.2-3.4); LYMPH % 17.6 % (22.0-35.0); MEAN CORPUSCULAR HEMOGLOBIN 29.4 pg (25.0-35.0); MEAN CORPUSCULAR HGB CONC 34.5 g/dl (31.0-37.0); MEAN PLATELET VOLUME 10.8 fl (7.0-11.0); MONO # 0.6 (0.1-0.6); MONO % 6.5 % (1.0-6.0); PLATELET COUNT 128 10^3/uL (120.0-450.0); WHITE BLOOD COUNT 8.7 10^3/ul (4.5-11.0)
--- NOTE | 2016-12-05 08:03 | CON ---
DATE: 12/04/2016 REASON FOR CONSULTATION: GI bleeding, bleeding per rectum. HISTORY OF PRESENT ILLNESS: This is a 71-year-old patient with a past medical history of diverticuli tis, diverticular disease, history of gastrointestinal bleeding, history of peptic ulcer disease, ari vular heart disease, noticed to have acute onset of bright red blood per rectum mixed with stool yest erday evening. The patient had multiple episodes, came to the Emergency Room. In the ER, she was fo und to have initial hemoglobin was 10.9, then it dropped down. On the floor, he had an acute episode of large amount of bleeding per rectum, bright red blood per rectum and also has developed hypotensi on. Hence, he was transferred from med/surgery to unit. Some lower abdominal discomfort. No vomiti ng otherwise. No further episodes since transfer to the unit. No vomiting blood. The patient refus ed NG tube lavage. PAST MEDICAL HISTORY: As above. PAST SURGICAL HISTORY: History of mastectomy. ALLERGIES: No known drug allergies. FAMILY HISTORY: Noncontributory. SOCIAL HISTORY: He was ex-smoker, denies alcohol. PHYSICAL EXAMINATION: GENERAL: The patient is lying on the bed, not in acute distress. VITAL SIGNS: Pulse 79 per minute, blood pressure . HEENT: Atraumatic, anicteric. NECK: Supple. HEART: S1, S2 heard. LUNGS: Bilateral air entry present. ABDOMEN: Soft. There is no tenderness. EXTREMITIES: No edema, no cyanosis. NEUROLOGIC: Alert, oriented. Moves all the extremities. RECOMMENDATIONS: 1. Continue to closely follow up the hemoglobin and hematocrit and transfuse. 2. Empirically, we will continue the Protonix. 3. The patient did have a CT scan of the abdomen and pelvis done in the ER, which was also reviewed. The patient had a bleeding scan done earlier and was reviewed. Discussed with the patient's family a t length. Discussed with the cement mason maintenance and the surgical clinical reviewer. The total time spent was close to 1 hour in coordinating and taking care of the critically sick patient. Kain Kam MD cc: [id number] TT: 12/05/2016 08:02:40 Confirmation # [id number] Dictation # [id number]
--- NOTE | 2016-12-05 08:08 | CP.PCM.PN ---
Subjective - Date & Time of Evaluation Date of Evaluation: 12/05/16 Time of Evaluation: 08:00 - Subjective Subjective: Still bleeding. Got 2 units RBCs. Low BPs noted. No CP, SOB, Abd. Pain. V/S noted. RSR PE: Lungs: clear Cor.: S1S2 Abd.: soft Ext.: no edema Neuro.: alert I/O= 1760/1400 Labs pending. Objective - Vital Signs/Intake and Output Vital Signs (last 24 hours): Temp Pulse Resp BP Pulse Ox 98 F 88 18 109/38 L 98 12/05/16 06:59 12/05/16 07:00 12/05/16 07:00 12/05/16 07:00 12/05/16 06:30 Intake and Output: 12/05/16 12/05/16 06:59 18:59 Intake Total 2575 1760 Output Total 700 1400 Balance 1875 360 - Medications Medications: Current Medications Acetaminophen (Tylenol 325mg Tab) 650 mg PO Q4H PRN PRN Reason: Pain, moderate (4-7) Last Admin: 12/04/16 05:51 Dose: 650 mg Atorvastatin Calcium (Lipitor) 20 mg PO DIN [facility] Last Admin: 12/04/16 17:28 Dose: Not Given Carvedilol (Coreg) 6.25 mg PO BID [facility] Last Admin: 12/04/16 17:29 Dose: Not Given Pantoprazole Sodium (Protonix 40mg Ivpb) 100 mls @ 20 mls/hr IVPB .Q5H [facility] Last Admin: 12/05/16 04:00 Dose: 20 mls/hr Sodium Chloride (Sodium Chloride 0.9%) 1,000 mls @ 150 mls/hr IV .Q6H40M [facility] Last Admin: 12/05/16 02:45 Dose: 150 mls/hr - Labs Labs: 12/04/16 21:25 PT 11.3 Seconds (9.9-11.8) 12/04/16 08:40 INR 1.05 (0.93-1.08) 12/04/16 08:40 APTT 22.2 Seconds (23.7-30.8) L 12/04/16 08:40 Assessment and Plan - Assessment and Plan (Free Text) Plan: Assessment: Active LGI Bleeding from Sigmoid Colon H/O diverticulosis with remote GIB Severe MR Mild/mod. LVD, possible related to chemo tx. Breast cancer s/p mastectomy and chemo. HLD GERD Plan: Transfuse GI and Surg. Eval. Monitor I/O. High Risk for CHF due to sev. MR and mod. LVD D/C PO Coreg. IV metoprolol 2.5 Q 12H if BPs OK. Monitor: H/H, labs, I/O, sats., etc. Will follow.
[2016-12-05 08:23] LABS: BLOOD UREA NITROGEN 13 mg/dL (7-21); CALCIUM 7.4 mg/dL (8.4-10.5); CARBON DIOXIDE 24 mmol/L (21-33); CHLORIDE 110 mmol/L (95-110); GFR AFRICAN-AMERICAN > 60; GLUCOSE,RANDOM 96 mg/dL (70-110); POTASSIUM 4.2 mmol/L (3.6-5.0); SODIUM 141 mmol/L (132-148)
[2016-12-05 09:03] LABS: ALB/GLOB RATIO 0.9 (1.1-1.8); ALKALINE PHOSPHATASE 48 U/L (38-133); ALT/SGPT 30 U/L (7-56); AST/SGOT 15 U/L (15-39); BILIRUBIN,DIRECT 0.4 mg/dL (0.0-0.4); BILIRUBIN,TOTAL 0.9 mg/dL (0.2-1.3)
[2016-12-05] MEDS: Metoprolol 1 mg/ml Inj IV SCH ×2 (09:07→22:31)
[2016-12-05 09:12] LABS: VENOUS BLOOD GAS BASE EXCESS -2.2 mmol/L (0.0-2.0); VENOUS BLOOD PH 7.36 (7.32-7.43)
[2016-12-05 09:13] LABS: TROPONIN I < 0.01 ng/mL
--- NOTE | 2016-12-05 09:21 | PN ---
DATE: 12/05/2016 The patient is seen and examined at bedside. She is comfortable. She talks full sentences. She is a little bit anxious, but not in respiratory or otherwise distress. The patient did have about 3-4 full bedpans of clots and blood. She also has been transfused 2 units of PRBC overnight, which totals 4 units since she came here to [facility]. Her hemoglobin, after 2 units, went up from 8.4 to 9.6. PHYSICAL EXAMINATION: VITAL SIGNS: Blood pressure 109/38 and fluctuates between 90 and 110 systolic. Temperature 98, heart rate 88, respiratory rate 18, oxygen saturation 98% on room air. HEAD AND NECK: Atraumatic. LUNGS: Clear to auscultation bilaterally. HEART: Regular rate and rhythm. S1, S2 normal. ABDOMEN: Soft, nontender, nondistended. MUSCULOSKELETAL: No C/C/E. NEUROLOGIC: The patient moves all extremities spontaneously. SKIN: Moist. PSYCHIATRIC: The patient is alert and oriented x 3. LABORATORY DATA: WBC 8.7, hemoglobin 9.6 up from 8.4 (after 2 units of PRBC), platelet count 128. Sodium 143, potassium 4, chloride 110, carbon dioxide 20. BUN 21, creatinine 0.7 down from 1.0. Glucose 123, AST 14, ALT 30. INR 1.05. MEDICATIONS: Lipitor, metoprolol, Protonix drip, normal saline 150 mL per hour , Tylenol p.r.n. ASSESSMENT AND PLAN: This is a 71-year-old lady with lower gastrointestinal bleed. At present time, we will follow lactic acid level, second troponin, and serial CBC. We will also follow the patient clinically to assess how massive her lower GI bleed is. She maintains her hemodynamics relatively stable. However, at times, her blood pressure sinks down to 90 systolic, which is concerning. It appears that the patient has a history of diverticulosis, and most likely, bleeds from diverticulum from sigmoid area, which was shown by gastrointestinal bleeding scan. Dr. Kam saw the patient in the morning, and he will be talking to Dr. Osuna about next step in the patient's management. Emergent colonoscopy with surgical backup, if family agrees, does appear to be most reasonable step. Meanwhile, the patient will be n.p.o., IV fluids will be continued and serial CBC will be continued as well. We will maintain euvolemia, euglycemia, normothermia, and oxygen saturation more than 90%. We will continue with mechanical deep venous thrombosis prophylaxis. We will continue with gastrointestinal prophylaxis. Addendum: troponins x 3 are neg, lactate level is 1.2. Hb 9.1 down from 9.6 (No PRBC transfusion between these two numbers). Patient will be going for emergent colonoscopy by Dr. Kam with Dr. Osuna back up ccm time 40 min Ralph Guerrero MD cc: [id number] TT: 12/05/2016 09:21:09 Confirmation # [id number] Dictation # [id number] MTDD
--- NOTE | 2016-12-05 11:00 | CP.PCM.PN ---
<Andrey Mckeon - Last Filed: 12/06/16 01:08> Subjective - Date & Time of Evaluation Date of Evaluation: 12/05/16 Time of Evaluation: 07:45 - Subjective Subjective: Patient seen and examined at bedside. Overnight patient continued to have bloody bowel movement. Two units of PRBC were transfused. GI team is planning to do a colonoscopy for the patient. Denies any nausea or vomiting, chest pain, shortness of breath. Objective - Vital Signs/Intake and Output Vital Signs (last 24 hours): Temp Pulse Resp BP Pulse Ox 98 F 80 13 87/63 L 100 12/05/16 08:00 12/05/16 10:32 12/05/16 10:32 12/05/16 10:32 12/05/16 10:32 Intake and Output: 12/05/16 12/05/16 06:59 18:59 Intake Total 2575 1760 Output Total 700 1400 Balance 1875 360 - Medications Medications: Current Medications Acetaminophen (Tylenol 325mg Tab) 650 mg PO Q4H PRN PRN Reason: Pain, moderate (4-7) Last Admin: 12/04/16 05:51 Dose: 650 mg Atorvastatin Calcium (Lipitor) 20 mg PO DIN [facility] Last Admin: 12/04/16 17:28 Dose: Not Given Pantoprazole Sodium (Protonix 40mg Ivpb) 100 mls @ 20 mls/hr IVPB .Q5H [facility] Last Admin: 12/05/16 04:00 Dose: 20 mls/hr Sodium Chloride (Sodium Chloride 0.9%) 1,000 mls @ 150 mls/hr IV .Q6H40M [facility] Last Admin: 12/05/16 09:00 Dose: 150 mls/hr Metoprolol Tartrate (Lopressor) 2.5 mg IV Q12H [facility] Last Admin: 12/05/16 09:07 Dose: 2.5 mg - Labs Labs: 12/05/16 07:50 12/05/16 07:50 PT 11.3 Seconds (9.9-11.8) 12/04/16 08:40 INR 1.05 (0.93-1.08) 12/04/16 08:40 APTT 22.2 Seconds (23.7-30.8) L 12/04/16 08:40 - Constitutional Appears: Non-toxic, No Acute Distress - Head Exam Head Exam: ATRAUMATIC, NORMOCEPHALIC - Eye Exam Eye Exam: Normal appearance Pupil Exam: PERRL - ENT Exam ENT Exam: Mucous Membranes Moist - Neck Exam Neck Exam: Normal Inspection - Respiratory Exam Respiratory Exam: Clear to Ausculation Bilateral, NORMAL BREATHING PATTERN. absent: Wheezes, Respiratory Distress - Cardiovascular Exam Cardiovascular Exam: REGULAR RHYTHM, RRR, +S1, +S2. absent: Murmur - GI/Abdominal Exam GI & Abdominal Exam: Soft, Rebound. absent: Distended, Guarding, Tenderness - Extremities Exam Extremities Exam: Normal Capillary Refill, Normal Inspection. absent: Joint Swelling, Pedal Edema, Tenderness - Neurological Exam Neurological Exam: Alert, Awake, Oriented x3 - Psychiatric Exam Psychiatric exam: Normal Affect, Normal Mood - Skin Skin Exam: Dry, Intact, Normal Color, Warm Assessment and Plan - Assessment and Plan (Free Text) Assessment: 71 yo female with past medical hx valvular heart disease, GI bleed, breast cancer presenting with hematochezia x 1 day. GI bleed/hematochezia -s/p 4 pRBC transfusion -CBC Q6, continue to monitor -ct shows diverticulosis, esophagitis, cystic structure 2.2 cm pancreatic neck -GI consult. Dr. Kam. recs appreciated -Colonoscopy later today -protonix BID -hold home beta bobby -NS 150 cc/hr -pt is hemodynamically stable -no leukocytosis, pt is afebrile, no distress -UA pending Hx of HLD -continue home statin hx of valvular heart disease -cardio consult. Dr. Barber. recs appreciated -hold home beta bobby hx of breast cancer -continue to monitor GI/DVT ppx -protonix -SCDs <Barbra HOLLIS,Ewa - Last Filed: 12/06/16 15:34> Objective - Vital Signs/Intake and Output Vital Signs (last 24 hours): Temp Pulse Resp BP Pulse Ox 98.3 F 97 H 16 112/72 96 12/06/16 12:00 12/06/16 15:00 12/06/16 15:00 12/06/16 15:00 12/06/16 15:00 Intake and Output: 12/06/16 12/06/16 06:59 18:59 Intake Total 3840 Output Total 1800 Balance 0 - Medications Medications: Current Medications Acetaminophen (Tylenol 325mg Tab) 650 mg PO Q4H PRN PRN Reason: Pain, moderate (4-7) Last Admin: 12/04/16 05:51 Dose: 650 mg Atorvastatin Calcium (Lipitor) 20 mg PO DIN [facility] Last Admin: 12/05/16 17:52 Dose: Not Given Pantoprazole Sodium (Protonix 40mg Ivpb) 100 mls @ 20 mls/hr IVPB .Q5H [facility] Last Admin: 12/06/16 11:10 Dose: 20 mls/hr Sodium Chloride (Sodium Chloride 0.9%) 1,000 mls @ 150 mls/hr IV .Q6H40M [facility] Last Admin: 12/05/16 15:30 Dose: 150 mls/hr Metoprolol Tartrate (Lopressor) 2.5 mg IV Q12H [facility] Last Admin: 12/06/16 11:14 Dose: Not Given Ondansetron HCl (Zofran Inj) 4 mg IVP Q4H PRN PRN Reason: Nausea/Vomiting Last Admin: 12/05/16 23:17 Dose: 4 mg - Labs Labs: 12/06/16 11:52 12/06/16 06:50 PT 11.3 Seconds (9.9-11.8) 12/04/16 08:40 INR 1.05 (0.93-1.08) 12/04/16 08:40 APTT 22.2 Seconds (23.7-30.8) L 12/04/16 08:40 Attending/Attestation - Attestation I have personally seen and examined this patient.: Yes I have fully participated in the care of the patient.: Yes I have reviewed all pertinent clinical information, including history, physical exam and plan: Yes Notes (Text): Patient was seen and examined with medical claims assistant .Agreed with resident assessment and plan. 71 F with lower GI bleeding due to diverticulosis requiring multiple blood transfusion, still having lower GI bleeding.Bleeding scan was positive for sigmoid colon,GI is plannng to Colonoscopy/Surgery is also consulted.We will continue monitoring.Patient is at ICU level of care. Management plan was discussed in detail with patient Education was provided.
--- NOTE | 2016-12-05 12:46 | CP.PCM.CON ---
<Svetlana Shine - Last Filed: 12/05/16 15:57> History of Present Illness - History of Present Illness History of Present Illness: SURGICAL CONSULT NOTE FOR DR. Osuna CC: Bright red blood per rectum X 2 day HPI: This is a 71F with a PMH of Breast cancer and diverticulosis who presented to [facility] last night due to a bloody BM and weakness that started around 2 nights ago. She reports a minor episode in the past of self limited bleeding per rectum. She reports mild pain in her lower abdomen. She denies any nausea or vomiting, chest pain, SOB. PMH: See Above PSH: Mastectomy ALL: NKDA Social: Denies Tobacco, ETOH, Drugs Review of Systems - Review of Systems All systems: reviewed and no additional remarkable complaints except Past Patient History - Infectious Disease Hx of Infectious Diseases: None - Tetanus Immunizations Tetanus Immunization: Unknown - Past Medical History & Family History Past Medical History?: Yes Past Family History: Reviewed and not pertinent - Past Social History Smoking Status: Never Smoked - CARDIAC Other/Comment: LEAKY HEART VALVE - PULMONARY Hx Respiratory Disorders: No - NEUROLOGICAL Hx Neurological Disorder: No Hx Paralysis: No - HEENT Hx HEENT Problems: No - RENAL Hx Chronic Kidney Disease: No - ENDOCRINE/METABOLIC Hx Endocrine Disorders: No - HEMATOLOGICAL/ONCOLOGICAL Hx Blood Transfusions: No Hx Cancer: Yes (BREAST) - INTEGUMENTARY Hx Dermatological Problems: No - MUSCULOSKELETAL/RHEUMATOLOGICAL Hx Musculoskeletal Disorders: Yes Hx Arthritis: Yes - GASTROINTESTINAL Hx Gastrointestinal Disorders: Yes (hiatal hernia) Hx Diverticulitis: Yes (2011) Hx Gastroesophageal Reflux: Yes - GENITOURINARY/GYNECOLOGICAL Hx Genitourinary Disorders: No - PSYCHIATRIC Hx Anxiety: Yes Hx Substance Use: No - SURGICAL HISTORY Other/Comment: BILAT MASTECTOMY - ANESTHESIA Hx Anesthesia: Yes Meds Allergies/Adverse Reactions: Allergies Allergy/AdvReac Type Severity Reaction Status Date / Time No Known Allergies Allergy Verified 12/03/16 21:09 - Medications Medications: Current Medications Acetaminophen (Tylenol 325mg Tab) 650 mg PO Q4H PRN PRN Reason: Pain, moderate (4-7) Last Admin: 12/04/16 05:51 Dose: 650 mg Atorvastatin Calcium (Lipitor) 20 mg PO DIN [facility] Last Admin: 12/04/16 17:28 Dose: Not Given Pantoprazole Sodium (Protonix 40mg Ivpb) 100 mls @ 20 mls/hr IVPB .Q5H [facility] Last Admin: 12/05/16 11:02 Dose: 20 mls/hr Sodium Chloride (Sodium Chloride 0.9%) 1,000 mls @ 150 mls/hr IV .Q6H40M [facility] Last Admin: 12/05/16 09:00 Dose: 150 mls/hr Metoprolol Tartrate (Lopressor) 2.5 mg IV Q12H [facility] Last Admin: 12/05/16 09:07 Dose: 2.5 mg Physical Exam - Constitutional Appears: Non-toxic - Head Exam Head Exam: ATRAUMATIC - Respiratory Exam Respiratory Exam: absent: Accessory Muscle Use, Respiratory Distress - GI/Abdominal Exam GI & Abdominal Exam: Soft. absent: Diminished Bowel Sounds, Distended, Firm, Guarding, Rigid, Tenderness - Extremities Exam Extremities exam: Negative for: pedal edema - Neurological Exam Neurological exam: Alert, Oriented x3 - Psychiatric Exam Psychiatric exam: Normal Affect, Normal Mood - Skin Skin Exam: Dry, Intact, Normal Color, Warm Results - Vital Signs Recent Vital Signs: Last Vital Signs Temp 98 F 12/05/16 08:00 Pulse 80 12/05/16 10:32 Resp 13 12/05/16 10:32 BP 87/63 L 12/05/16 10:32 Pulse Ox 100 12/05/16 10:32 - Labs Result Diagrams: 12/05/16 07:50 12/05/16 07:50 Labs: Laboratory Results - last 24 hr 12/04/16 12/05/16 12/05/16 21:25 07:50 08:23 WBC 7.6 8.7 RBC 3.03 L 3.27 L Hgb 8.4 L 9.6 L Hct 25.6 L 27.8 L MCV 84.5 85.0 MCH 27.7 29.4 MCHC 32.8 34.5 RDW 15.2 H 15.0 H Plt Count 145 128 MPV 11.1 H 10.8 Gran % 74.6 H Lymph % (Auto) 17.6 L Blair % (Auto) 6.5 H Eos % (Auto) 1.1 L Baso % (Auto) 0.2 Gran # 6.50 Lymph # 1.5 Blair # 0.6 Eos # 0.1 Baso # 0.02 pO2 35 VBG pH 7.36 VBG pCO2 41.0 VBG HCO3 23.2 VBG Total CO2 24.5 VBG O2 Sat (Calc) 71.4 H VBG Base Excess -2.2 L VBG Potassium 4.0 Glucose 99 Lactate 1.2 FiO2 21.0 Sodium 141 141.0 Potassium 4.2 Chloride 110 115.0 H Carbon Dioxide 24 Anion Gap 11 BUN 13 Creatinine 0.6 Est GFR ( Amer) > 60 Est GFR (Non-Af Amer) > 60 Random Glucose 96 Calcium 7.4 L Total Bilirubin 0.9 Direct Bilirubin 0.4 AST 15 ALT 30 Alkaline Phosphatase 48 Troponin I < 0.01 Total Protein 5.0 L Albumin 2.4 L Globulin 2.6 Albumin/Globulin Ratio 0.9 L Venous Blood Potassium 4.0 12/05/16 08:50 WBC RBC Hgb Hct MCV MCH MCHC RDW Plt Count MPV Gran % Lymph % (Auto) Blair % (Auto) Eos % (Auto) Baso % (Auto) Gran # Lymph # Blair # Eos # Baso # pO2 VBG pH VBG pCO2 VBG HCO3 VBG Total CO2 VBG O2 Sat (Calc) VBG Base Excess VBG Potassium Glucose Lactate FiO2 Sodium Potassium Chloride Carbon Dioxide Anion Gap BUN Creatinine Est GFR ( Amer) Est GFR (Non-Af Amer) Random Glucose Calcium Total Bilirubin Direct Bilirubin AST ALT Alkaline Phosphatase Troponin I < 0.01 Total Protein Albumin Globulin Albumin/Globulin Ratio Venous Blood Potassium Assessment & Plan - Assessment and Plan (Free Text) Assessment: This is a 71F with a PMH of Breast CA and Diverticulosis who presented with a GI bleed. Nuclear scan showed active GI bleed in sigmoid colon Follow up GI Recs-colonoscopy today Continue management per ICU team Transfused 4 units of PRBC Continue to follow Discussed with Dr. Thao Shine PGY1 - Date & Time Date: 12/05/16 Time: 12:51 <Cirilo Osuna - Last Filed: 12/08/16 21:54> Meds - Medications Medications: Current Medications Acetaminophen (Tylenol 325mg Tab) 650 mg PO Q4H PRN PRN Reason: Pain, moderate (4-7) Last Admin: 12/04/16 05:51 Dose: 650 mg Atorvastatin Calcium (Lipitor) 20 mg PO DIN [facility] Last Admin: 12/08/16 17:11 Dose: Not Given Hydromorphone HCl (Dilaudid) 1 mg IVP Q3H PRN PRN Reason: Pain, moderate (4-7) Hydromorphone HCl (Dilaudid) 2 mg IVP Q4H PRN PRN Reason: Pain, severe (8-10) Cefoxitin Sodium 1 gm/ Sodium (Chloride) 100 mls @ 100 mls/hr IV Q8H [facility] PRN Reason: Protocol Last Admin: 12/08/16 15:39 Dose: 100 mls/hr Metronidazole (Flagyl) 100 mls @ 100 mls/hr IVPB Q8 [facility] PRN Reason: Protocol Last Admin: 12/08/16 13:35 Dose: 100 mls/hr Sodium Chloride (Sodium Chloride 0.9%) 1,000 mls @ 75 mls/hr IV .[id number] [facility] Acetaminophen (Ofirmev) 100 mls @ 400 mls/hr IVPB Q6H PRN PRN Reason: Fever >100.3 F Stop: 12/10/16 20:04 Last Admin: 12/08/16 20:15 Dose: 400 mls/hr Metoprolol Tartrate (Lopressor) 2.5 mg IV Q12H [facility] Last Admin: 12/08/16 20:09 Dose: 2.5 mg Ondansetron HCl (Zofran Inj) 4 mg IVP Q4H PRN PRN Reason: Nausea/Vomiting Last Admin: 12/05/16 23:17 Dose: 4 mg Pantoprazole Sodium (Protonix Inj) 40 mg IVP DAILY [facility] Last Admin: 12/08/16 10:26 Dose: 40 mg Vitamin A (Vitamin A & D Oint Ud Foilpak) 1 ea TOP Q6 [facility] Last Admin: 12/08/16 17:36 Dose: Not Given Results - Vital Signs Recent Vital Signs: Last Vital Signs Temp 101 F H 12/08/16 20:00 Pulse 121 H 12/08/16 20:09 Resp 16 12/08/16 20:09 BP 109/62 12/08/16 20:09 Pulse Ox 97 12/08/16 20:09 - Labs Result Diagrams: 12/08/16 17:35 12/08/16 18:45 Labs: Laboratory Results - last 24 hr 12/07/16 12/08/16 12/08/16 22:30 00:08 04:30 WBC 11.7 H RBC 3.02 L Hgb 9.0 L 9.1 L Hct 26.1 L 26.0 L MCV 86.1 MCH 30.1 MCHC 35.0 RDW 15.7 H Plt Count 134 MPV 10.0 Gran % 84.5 H Lymph % (Auto) 8.3 L Blair % (Auto) 6.7 H Eos % (Auto) 0.3 L Baso % (Auto) 0.2 Gran # 9.88 H Lymph # 1.0 L Blair # 0.8 H Eos # 0.0 Baso # 0.02 PT 11.5 INR 1.06 APTT 25.3 pCO2 pO2 HCO3 ABG pH ABG Total CO2 ABG O2 Saturation ABG O2 Content ABG Base Excess ABG Hemoglobin ABG Carboxyhemoglobin POC ABG HHb (Measured) ABG Methemoglobin ABG O2 Capacity Hgb O2 Saturation FiO2 Sodium 137 Potassium 3.4 L 4.0 Chloride 107 Carbon Dioxide 28 Anion Gap 6 L BUN 8 Creatinine 0.7 Est GFR ( Amer) > 60 Est GFR (Non-Af Amer) > 60 POC Glucose (mg/dL) Random Glucose 105 Calcium 7.4 L Phosphorus 3.0 Magnesium 1.9 Total Bilirubin 0.9 AST 19 ALT 36 Alkaline Phosphatase 41 Lactate Dehydrogenase Total Creatine Kinase Troponin I Total Protein 4.8 L Albumin 2.3 L Globulin 2.5 Albumin/Globulin Ratio 0.9 L 12/08/16 12/08/16 12/08/16 04:50 11:34 12:20 WBC RBC Hgb 9.0 L Hct 25.8 L MCV MCH MCHC RDW Plt Count MPV Gran % Lymph % (Auto) Blair % (Auto) Eos % (Auto) Baso % (Auto) Gran # Lymph # Blair # Eos # Baso # PT INR APTT pCO2 34 L pO2 103.0 H HCO3 23.1 ABG pH 7.44 ABG Total CO2 24.1 ABG O2 Saturation 99.0 H ABG O2 Content 12.1 L ABG Base Excess -0.8 ABG Hemoglobin 8.8 L ABG Carboxyhemoglobin 1.4 POC ABG HHb (Measured) 1.0 ABG Methemoglobin 1.0 ABG O2 Capacity 12.2 L Hgb O2 Saturation 96.5 FiO2 50.0 Sodium Potassium Chloride Carbon Dioxide Anion Gap BUN Creatinine Est GFR ( Amer) Est GFR (Non-Af Amer) POC Glucose (mg/dL) 110 Random Glucose Calcium Phosphorus 3.3 Magnesium 1.9 Total Bilirubin AST ALT Alkaline Phosphatase Lactate Dehydrogenase Total Creatine Kinase Troponin I Total Protein Albumin Globulin Albumin/Globulin Ratio 12/08/16 12/08/16 12/08/16 15:57 17:35 18:45 WBC 11.2 H RBC 2.81 L Hgb 8.5 L Hct 24.7 L MCV 87.9 MCH 30.2 MCHC 34.4 RDW 16.1 H Plt Count 139 MPV 11.1 H Gran % Lymph % (Auto) Blair % (Auto) Eos % (Auto) Baso % (Auto) Gran # Lymph # Blair # Eos # Baso # PT INR APTT pCO2 pO2 HCO3 ABG pH ABG Total CO2 ABG O2 Saturation ABG O2 Content ABG Base Excess ABG Hemoglobin ABG Carboxyhemoglobin POC ABG HHb (Measured) ABG Methemoglobin ABG O2 Capacity Hgb O2 Saturation FiO2 Sodium 136 Potassium 3.6 Chloride 104 Carbon Dioxide 28 Anion Gap 8 L BUN 7 Creatinine 0.8 Est GFR ( Amer) > 60 Est GFR (Non-Af Amer) > 60 POC Glucose (mg/dL) 118 H Random Glucose 90 Calcium 7.5 L Phosphorus Magnesium Total Bilirubin 1.0 AST 17 ALT 36 Alkaline Phosphatase 46 Lactate Dehydrogenase 399 Total Creatine Kinase 136 Troponin I 0.10 D Total Protein 4.7 L Albumin 2.2 L Globulin 2.6 Albumin/Globulin Ratio 0.8 L 12/08/16 21:30 WBC RBC Hgb Hct MCV MCH MCHC RDW Plt Count MPV Gran % Lymph % (Auto) Blair % (Auto) Eos % (Auto) Baso % (Auto) Gran # Lymph # Blair # Eos # Baso # PT INR APTT pCO2 pO2 HCO3 ABG pH ABG Total CO2 ABG O2 Saturation ABG O2 Content ABG Base Excess ABG Hemoglobin ABG Carboxyhemoglobin POC ABG HHb (Measured) ABG Methemoglobin ABG O2 Capacity Hgb O2 Saturation FiO2 Sodium Potassium Chloride Carbon Dioxide Anion Gap BUN Creatinine Est GFR ( Amer) Est GFR (Non-Af Amer) POC Glucose (mg/dL) 102 Random Glucose Calcium Phosphorus Magnesium Total Bilirubin AST ALT Alkaline Phosphatase Lactate Dehydrogenase Total Creatine Kinase Troponin I Total Protein Albumin Globulin Albumin/Globulin Ratio Assessment & Plan - Assessment and Plan (Free Text) Assessment: Patient was seen and examined by me. I agree with assessment and plan as per resident's note. - Date & Time Date: 12/05/16 Time: 16:35
--- NOTE | 2016-12-05 14:09 | PQF ANEMIA ---
This is acute blood lose anemia due to lower GI Bleeding This form is a permanent part of the medical record Dr. Belle, Patient admitted with active GI bleeding, transfused with 4 UPRBC. Please specify type and severity of anemia, blood loss, acute or chronic, other. Clarification of your documentation is requested to better reflect the severity of illness and intensity of treatment of your patient. Indicators present [x] Anemia [] Drop in H&H from []___ to [x]___8.4/25.6 [] Hypotension [x] GI Bleed [x] Transfusion(s) [] Acute bleed other sites [] Tachycardia [] Surgical Procedure Blood Loss (expected not a complication) Other:[] Location in the medical record that reflects the above clinical findings: [] Treatment Provided: [] PHYSICIAN'S RESPONSE Based on your medical judgment of the clinical indicators outlined above, are you treating this patient for a known or suspected: [] Acute blood loss anemia [] Chronic blood loss anemia [] Acute on Chronic blood loss anemia [] Anemia due to malignancy [] Anemia due to chemotherapy or radiation therapy [] Anemia of Chronic Disease, please specify: [] [] Other, please indicate type of anemia []____ [] If Unable to Determine, please check the box, sign and date. Present On Admission (POA) Indicator: [] Present at the time of admission [] Not present at the time of admission [] Clinically Undetermined In responding to this query, please exercise your independent professional judgment. The fact that a question is asked does not imply that any particular answer is desired or expected. Thank you for your clarification on this documentation. If you have any questions please call:[ ] * Thank you, [ ]Claire Freed [facility] #[id number] coin machine collector EHSAN
[2016-12-05 16:05] LABS: ADD MANUAL DIFF? NO
[2016-12-05 16:10] LABS: BASO # 0.04 K/mm3 (0.0-2.0); BASO % 0.4 % (0.0-3.0); EOS # 0.1 (0.0-0.7); EOS % 1.2 % (1.5-5.0); GRAN # 7.63 (1.4-6.5); GRAN % 80.4 % (50.0-68.0); HEMATOCRIT 26.1 % (36.0-48.0); LYMPH # 1.3 (1.2-3.4); LYMPH % 13.2 % (22.0-35.0); MEAN CELL VOLUME 84.2 fL (80.0-105.0); MEAN CORPUSCULAR HEMOGLOBIN 29.4 pg (25.0-35.0); MEAN CORPUSCULAR HGB CONC 34.9 g/dl (31.0-37.0); MEAN PLATELET VOLUME 10.7 fl (7.0-11.0); MONO # 0.5 (0.1-0.6); MONO % 4.8 % (1.0-6.0); PLATELET COUNT 135 10^3/uL (120.0-450.0); RED CELL DISTRIBUTION WIDTH 14.9 % (11.5-14.5); WHITE BLOOD COUNT 9.5 10^3/ul (4.5-11.0)
--- NOTE | 2016-12-05 17:36 | US ---
HISTORY: Leg pain and swelling. Evaluate for DVT PHYSICIAN(S): Daniel Begum MD. TECHNIQUE: Duplex sonography and color-flow Doppler with graded compression were used to evaluate the deep venous systems of both lower extremities. FINDINGS: The visualized deep venous systems of both lower extremities are sonographically normal and compressible. Normal wave forms and augmentation are seen. There is no sonographic evidence for deep venous thrombosis in the visualized segments of both lower extremities. IMPRESSION: No sonographic evidence for deep venous thrombosis in the visualized segments of both lower extremities.
[2016-12-05] MEDS ORDERED: Propofol 10 mg/ml Inj (20 ML) ONE ×2 (19:54→20:51)
[2016-12-05] MEDS ORDERED: Lidocaine 2% Inj (20ml) ONE (19:54)
[2016-12-06 00:30] LABS: ADD MANUAL DIFF? NO
[2016-12-06 00:36] LABS: BASO # 0.01 K/mm3 (0.0-2.0); BASO % 0.1 % (0.0-3.0); EOS # 0.1 (0.0-0.7); EOS % 1.3 % (1.5-5.0); GRAN # 5.46 (1.4-6.5); GRAN % 72.6 % (50.0-68.0); LYMPH # 1.6 (1.2-3.4); LYMPH % 20.7 % (22.0-35.0); MEAN CELL VOLUME 84.6 fL (80.0-105.0); MEAN CORPUSCULAR HEMOGLOBIN 29.3 pg (25.0-35.0); MEAN CORPUSCULAR HGB CONC 34.6 g/dl (31.0-37.0); MONO # 0.4 (0.1-0.6); MONO % 5.3 % (1.0-6.0); PLATELET COUNT 99 10^3/uL (120.0-450.0); RED CELL DISTRIBUTION WIDTH 15.2 % (11.5-14.5); WHITE BLOOD COUNT 7.5 10^3/ul (4.5-11.0)
[2016-12-06 00:42] LABS: HEMATOCRIT 20.8 % (36.0-48.0)
[2016-12-06] MEDS: Pantoprazole 40mg/100ml IVPB 100 ML IVPB SCH ×5 (04:22→20:21)
[2016-12-06 06:52] LABS: ADD MANUAL DIFF? NO
[2016-12-06 07:34] LABS: ALKALINE PHOSPHATASE 35 U/L (38-133); ALT/SGPT 27 U/L (7-56); AST/SGOT 14 U/L (15-39); BILIRUBIN,TOTAL 0.7 mg/dL (0.2-1.3); BLOOD UREA NITROGEN 9 mg/dL (7-21); CARBON DIOXIDE 22 mmol/L (21-33); CHLORIDE 110 mmol/L (95-110); GFR AFRICAN-AMERICAN > 60; GLUCOSE,RANDOM 87 mg/dL (70-110); MAGNESIUM 1.8 mg/dL (1.7-2.2); PHOSPHOROUS 2.7 mg/dL (2.5-4.5); POTASSIUM 3.4 mmol/L (3.6-5.0); SODIUM 139 mmol/L (132-148); TOTAL PROTEIN 3.9 g/dL (5.8-8.3)
[2016-12-06 07:38] LABS: BASO # 0.04 K/mm3 (0.0-2.0); BASO % 0.5 % (0.0-3.0); EOS # 0.1 (0.0-0.7); EOS % 1.7 % (1.5-5.0); GRAN # 6.35 (1.4-6.5); GRAN % 75.7 % (50.0-68.0); HEMATOCRIT 26.6 % (36.0-48.0); LYMPH # 1.2 (1.2-3.4); LYMPH % 14.8 % (22.0-35.0); MEAN CORPUSCULAR HEMOGLOBIN 29.4 pg (25.0-35.0); MEAN CORPUSCULAR HGB CONC 34.6 g/dl (31.0-37.0); MEAN PLATELET VOLUME 10.7 fl (7.0-11.0); MONO # 0.6 (0.1-0.6); MONO % 7.3 % (1.0-6.0); PLATELET COUNT 96 10^3/uL (120.0-450.0); RED CELL DISTRIBUTION WIDTH 15.3 % (11.5-14.5); WHITE BLOOD COUNT 8.4 10^3/ul (4.5-11.0)
[2016-12-06 08:04] LABS: CALCIUM 6.9 mg/dL (8.4-10.5)
--- NOTE | 2016-12-06 08:12 | CP.PCM.PN ---
Subjective - Date & Time of Evaluation Date of Evaluation: 12/06/16 Time of Evaluation: 08:00 - Subjective Subjective: Events from yesterday noted. S/P colonoscopy. Results noted. She received 7 units RBC's so far. V/S noted. RSR PE: Lungs: rhonchi Cor.: S1S2, sys murmur Abd.: soft Ext.: no edema Neuro.: alert I/O= 9640/[id number] Labs noted: H/H=9.2/26, [place] [address] [address], K+= 3.4, trops neg. Objective - Vital Signs/Intake and Output Vital Signs (last 24 hours): Temp Pulse Resp BP Pulse Ox 98.8 F 88 19 80/58 L 94 L 12/06/16 06:16 12/06/16 06:16 12/06/16 06:16 12/06/16 06:16 12/06/16 04:04 Intake and Output: 12/06/16 12/06/16 06:59 18:59 Intake Total 3840 Output Total 1800 Balance 2040 - Medications Medications: Current Medications Acetaminophen (Tylenol 325mg Tab) 650 mg PO Q4H PRN PRN Reason: Pain, moderate (4-7) Last Admin: 12/04/16 05:51 Dose: 650 mg Atorvastatin Calcium (Lipitor) 20 mg PO DIN [facility] Last Admin: 12/05/16 17:52 Dose: Not Given Pantoprazole Sodium (Protonix 40mg Ivpb) 100 mls @ 20 mls/hr IVPB .Q5H [facility] Last Admin: 12/06/16 04:22 Dose: 20 mls/hr Sodium Chloride (Sodium Chloride 0.9%) 1,000 mls @ 150 mls/hr IV .Q6H40M [facility] Last Admin: 12/05/16 15:30 Dose: 150 mls/hr Metoprolol Tartrate (Lopressor) 2.5 mg IV Q12H [facility] Last Admin: 12/05/16 22:31 Dose: Not Given Ondansetron HCl (Zofran Inj) 4 mg IVP Q4H PRN PRN Reason: Nausea/Vomiting Last Admin: 12/05/16 23:17 Dose: 4 mg - Labs Labs: 12/06/16 06:50 12/06/16 06:50 PT 11.3 Seconds (9.9-11.8) 12/04/16 08:40 INR 1.05 (0.93-1.08) 12/04/16 08:40 APTT 22.2 Seconds (23.7-30.8) L 12/04/16 08:40 Assessment and Plan - Assessment and Plan (Free Text) Plan: Assessment: Active LGI Bleeding from Sigmoid Colon H/O diverticulosis with remote GIB Severe MR Mild/mod. LVD, possible related to chemo tx. Breast cancer s/p mastectomy and chemo. HLD GERD Plan: Transfuse as needed Replace K+ GI and Surg. Eval. Monitor I/O. High Risk for CHF due to sev. MR and mod. LVD IV metoprolol 2.5 Q 12H if BPs OK. Monitor: H/H, labs, I/O, sats., etc. Will follow.
[2016-12-06] MEDS: Potassium Chloride 20 mEq 100 ML IV SCH ×2 (08:24→11:56)
--- NOTE | 2016-12-06 10:49 | PN ---
DATE: 12/06/2016 Seen and examined at the bedside earlier this morning. The patient is reported to have had large bow el movement with large clots this morning. It was burgundy in color. The patient is status post 2 u nits of packed RBCs last night. Her hemoglobin at midnight dropped to 7.2. The patient denies nause a, vomiting, or any abdominal pain. She did have a colonoscopy last night and was found to have mult iple small and large diverticula in the entire colon with large amount of blood and clots. No active bleeding site was seen. VITAL SIGNS: Temperature is 98, her blood pressure is 105/63, pulse of 86, respirations 24, 98% nasa l cannula. LABORATORIES: Today, WBCs 8.4, hemoglobin 9.2, hematocrit 26.6, platelets of 96. Her sodium is 139, K is 3.4, BUN is 9, creatinine 0.6, calcium is 6.9, magnesium 1.8. Total bilirubin 0.7, AST 14, ALT 27, alkaline phosphatase is 35. PHYSICAL EXAMINATION: HEENT: Sclerae anicteric. NECK: Supple. CARDIAC: S1, S2. LUNG SOUNDS: With decreased breath sounds. No rales or wheeze. ABDOMEN: With bowel sounds, soft, nontender. EXTREMITIES: No edema. NEUROLOGIC: Awake, alert. LUNG SOUNDS: With decreased breath sounds, but good aeration, positive rhonchi, no wheezing. ASSESSMENT: This is a 71-year-old female with history of diverticulosis/diverticulitis with lower ga strointestinal bleed, status post colonoscopy, found to have diverticulosis throughout the colon with blood, but no active bleeding was seen, anemia secondary to gastrointestinal bleed, status post tota l unit of 7 units of packed red blood cells, hypokalemia, history of breast cancer with mastectomy an d chemotherapy, gastroesophageal reflux disease, history of peptic ulcer disease and valvular heart d isease. PLAN: We will request for a stat repeat bleeding scan. The patient is being followed by surgery. Pricila mack to monitor her H and H. She is due again at 12 p.m. Transfuse as necessary. Keep n.p.o. wi th IV fluids for hydration. She is also receiving potassium replacement. Continue Protonix. She is also getting Zofran p.r.n. nausea. As per surgery and cardiology. Discussed with nursing staff and the family at the bedside. The patient was seen and case discussed with Dr. Kam. Paty MARTINES cc: 451 TT: 12/06/2016 10:35:25 Confirmation # [id number] Dictation # [id number] en
--- NOTE | 2016-12-06 11:12 | CP.PCM.PN ---
<Casey Marx - Last Filed: 12/06/16 11:17> Subjective - Date & Time of Evaluation Date of Evaluation: 12/06/16 Time of Evaluation: 11:04 - Subjective Subjective: SURGERY NOTE FOR DR. OSUNA 71F seen and examined at bedside. Patient received two units of blood overnight. Repeat hemoglobin is 9.2 from 7.2. Patient was having Bowel movements fill with dark clots. Colonoscopy yesterday showed clots with no active bleeding. Objective - Vital Signs/Intake and Output Vital Signs (last 24 hours): Temp Pulse Resp BP Pulse Ox 98 F 92 H 17 98/67 L 95 12/06/16 08:00 12/06/16 09:00 12/06/16 09:00 12/06/16 09:00 12/06/16 09:00 Intake and Output: 12/06/16 12/06/16 06:59 18:59 Intake Total 3840 Output Total 1800 Balance 2040 - Medications Medications: Current Medications Acetaminophen (Tylenol 325mg Tab) 650 mg PO Q4H PRN PRN Reason: Pain, moderate (4-7) Last Admin: 12/04/16 05:51 Dose: 650 mg Atorvastatin Calcium (Lipitor) 20 mg PO DIN [facility] Last Admin: 12/05/16 17:52 Dose: Not Given Pantoprazole Sodium (Protonix 40mg Ivpb) 100 mls @ 20 mls/hr IVPB .Q5H [facility] Last Admin: 12/06/16 04:22 Dose: 20 mls/hr Sodium Chloride (Sodium Chloride 0.9%) 1,000 mls @ 150 mls/hr IV .Q6H40M [facility] Last Admin: 12/05/16 15:30 Dose: 150 mls/hr Potassium Chloride (Potassium Chloride 20 Meq/100 Ml) 100 mls @ 50 mls/hr IV Q2H [facility] Stop: 12/06/16 12:14 Last Admin: 12/06/16 08:24 Dose: 50 mls/hr Metoprolol Tartrate (Lopressor) 2.5 mg IV Q12H [facility] Last Admin: 12/05/16 22:31 Dose: Not Given Ondansetron HCl (Zofran Inj) 4 mg IVP Q4H PRN PRN Reason: Nausea/Vomiting Last Admin: 12/05/16 23:17 Dose: 4 mg - Labs Labs: 12/06/16 06:50 12/06/16 06:50 PT 11.3 Seconds (9.9-11.8) 12/04/16 08:40 INR 1.05 (0.93-1.08) 12/04/16 08:40 APTT 22.2 Seconds (23.7-30.8) L 12/04/16 08:40 - Constitutional Appears: Non-toxic, No Acute Distress - Head Exam Head Exam: ATRAUMATIC - Respiratory Exam Respiratory Exam: Clear to Ausculation Bilateral, NORMAL BREATHING PATTERN - Cardiovascular Exam Cardiovascular Exam: REGULAR RHYTHM, +S1, +S2 - GI/Abdominal Exam GI & Abdominal Exam: Soft. absent: Distended, Firm, Guarding, Rigid, Tenderness , Rebound - Rectal Exam Additional comments: large amount of dark clots in BM - Neurological Exam Neurological Exam: Alert, Awake - Skin Skin Exam: Dry, Intact, Normal Color, Warm Assessment and Plan - Assessment and Plan (Free Text) Assessment: 71F presents with lower GI bleed. Colonoscopy revealed clots but no active bleedings. Plan: - transfuse 2FFP/1PLT - f/u GI bleeding scan - f/u CBC Further recs discuss with Dr. Thao Marx, PGY1 <Cirilo Osuna - Last Filed: 12/08/16 21:55> Subjective - Date & Time of Evaluation Date of Evaluation: 12/06/16 Time of Evaluation: 12:15 Objective - Vital Signs/Intake and Output Vital Signs (last 24 hours): Temp Pulse Resp BP Pulse Ox 101 F H 121 H 16 109/62 97 12/08/16 20:00 12/08/16 20:09 12/08/16 20:09 12/08/16 20:09 12/08/16 20:09 Intake and Output: 12/08/16 12/09/16 18:59 06:59 Intake Total 1305 Output Total 2130 150 Balance -825 -150 - Medications Medications: Current Medications Acetaminophen (Tylenol 325mg Tab) 650 mg PO Q4H PRN PRN Reason: Pain, moderate (4-7) Last Admin: 12/04/16 05:51 Dose: 650 mg Atorvastatin Calcium (Lipitor) 20 mg PO DIN [facility] Last Admin: 12/08/16 17:11 Dose: Not Given Hydromorphone HCl (Dilaudid) 1 mg IVP Q3H PRN PRN Reason: Pain, moderate (4-7) Hydromorphone HCl (Dilaudid) 2 mg IVP Q4H PRN PRN Reason: Pain, severe (8-10) Cefoxitin Sodium 1 gm/ Sodium (Chloride) 100 mls @ 100 mls/hr IV Q8H [facility] PRN Reason: Protocol Last Admin: 12/08/16 15:39 Dose: 100 mls/hr Metronidazole (Flagyl) 100 mls @ 100 mls/hr IVPB Q8 [facility] PRN Reason: Protocol Last Admin: 12/08/16 13:35 Dose: 100 mls/hr Sodium Chloride (Sodium Chloride 0.9%) 1,000 mls @ 75 mls/hr IV .[id number] [facility] Acetaminophen (Ofirmev) 100 mls @ 400 mls/hr IVPB Q6H PRN PRN Reason: Fever >100.3 F Stop: 12/10/16 20:04 Last Admin: 12/08/16 20:15 Dose: 400 mls/hr Metoprolol Tartrate (Lopressor) 2.5 mg IV Q12H [facility] Last Admin: 12/08/16 20:09 Dose: 2.5 mg Ondansetron HCl (Zofran Inj) 4 mg IVP Q4H PRN PRN Reason: Nausea/Vomiting Last Admin: 12/05/16 23:17 Dose: 4 mg Pantoprazole Sodium (Protonix Inj) 40 mg IVP DAILY [facility] Last Admin: 12/08/16 10:26 Dose: 40 mg Vitamin A (Vitamin A & D Oint Ud Foilpak) 1 ea TOP Q6 [facility] Last Admin: 12/08/16 17:36 Dose: Not Given - Labs Labs: 12/08/16 17:35 12/08/16 18:45 PT 11.5 Seconds (9.9-11.8) 12/08/16 04:30 INR 1.06 (0.93-1.08) 12/08/16 04:30 APTT 25.3 Seconds (23.7-30.8) 12/08/16 04:30 Assessment and Plan - Assessment and Plan (Free Text) Assessment: Patient was seen and examined by me. I agree with assessment and plan as per resident's note.
[2016-12-06] MEDS: Metoprolol 1 mg/ml Inj IV SCH (11:14)
--- NOTE | 2016-12-06 11:28 | CP.CCUPN ---
<Eugenia Peck - Last Filed: 12/06/16 11:24> CCU Subjective - Physician Review Events Since Last Encounter (Free Text): 12/06/16 11:24 Patient seen and examined bedside. As per nursing, patient has not had any more hematochezia overnight. She did have loose BMs yesterday with bowel prep for colonoscopy with dark blood clots. Colonoscopy yesterday showed significant diverticulosis throughout the colon, blood cloths throughout, no active bleed, internal hemorrhoids. This morning, patient denies CP, SOB, n/v, fevers, chills. Admits to mild lower abdominal pain, unchanged since yesterday. Critical Care Time Spent (in minutes): 40 CCU Objective - Vital Signs / Intake & Output Vital Signs (Last 4 hours): Vital Signs Temp Pulse Resp BP Pulse Ox 12/06/16 11:14 90 98/57 L 12/06/16 09:00 92 H 17 98/67 L 95 12/06/16 08:31 103 H 28 H 104/71 98 12/06/16 08:14 95 H 40 H 98 12/06/16 08:00 98 F 86 24 105/63 98 Intake and Output (Last 8hrs): Intake & Output 12/05/16 12/06/16 12/06/16 22:59 06:59 14:59 Intake Total 4040 3840 Output Total 2045 1800 Balance 1994 2039 Intake: IV 2040 240 Left Antecubital 240 Right Antecubital 0 Left Forearm 2040 Oral 2000 0 Tube Feeding 0 TPN/PPN 0 Blood Product 1625 Red Blood Cells Cpd As1 325 Lr Unit [id number] Red Blood Cells Cpd As1 650 Lr Unit [id number] Lipid 0 Albumin 0 Other 1975 Red Blood Cells Cpd As1 0 Lr Unit [id number] Red Blood Cells Cpd As1 100 Lr Unit [id number] Output: Urine 900 1800 Urethral (Luevano) 900 1800 Stool 1145 0 Urine/Stool Mix 0 Emesis 0 0 Oral Regurgitation 0 Other 0 Other: Voiding Method Indwelling Catheter Indwelling Catheter # Voids Urethral (Luevano) 0 # Bowel Movements 7 0 - Physical Exam Head: Positive for: Atraumatic, Normocephalic Pupils: Positive for: PERRL Extroacular Muscles: Positive for: EOMI Conjunctiva: Positive for: Normal Mouth: Positive for: Moist Mucous Membranes Neck: Positive for: Normal Range of Motion Respiratory/Chest: Positive for: Clear to Auscultation, Good Air Exchange. Negative for: Respiratory Distress, Accessory Muscle Use Cardiovascular: Positive for: Regular Rate and Rhythm, Normal S1, S2. Negative for: Murmurs Abdomen: Positive for: Normal Bowel Sounds. Negative for: Tenderness, Distention, Peritoneal Signs Rectal: Positive for: Other (Bright red blood on digital exam, no active bleeding) Back: Positive for: Normal Inspection Upper Extremity: Positive for: Normal Inspection. Negative for: Cyanosis, Edema Lower Extremity: Positive for: Normal Inspection. Negative for: Edema Neurological: Positive for: GCS=15, CN II-XII Intact, Speech Normal Skin: Positive for: Warm, Dry, Normal Color. Negative for: Rashes Psychiatric: Positive for: Alert, Oriented x 3, Normal Insight, Normal Concentration - Medications Active Medications: Active Medications Generic Name Dose Route Start Last Admin Trade Name Freq PRN Reason Stop Dose Admin Acetaminophen 650 mg 12/04/16 05:43 12/04/16 05:51 Tylenol 325mg Tab PO 650 mg Q4H PRN Administration Pain, moderate (4-7) Atorvastatin Calcium 20 mg 12/04/16 17:00 12/05/16 17:52 Lipitor PO Not Given DIN [facility] Pantoprazole Sodium 100 mls @ 20 mls/hr 12/04/16 07:00 12/06/16 11:10 Protonix 40mg Ivpb IVPB 20 mls/hr .Q5H [facility] Administration Sodium Chloride 1,000 mls @ 150 mls/hr 12/05/16 02:57 12/05/16 15:30 Sodium Chloride 0.9% IV 150 mls/hr .Q6H40M [facility] Administration Potassium Chloride 100 mls @ 50 mls/hr 12/06/16 08:15 12/06/16 08:24 Potassium Chloride 20 Meq/100 Ml IV 12/06/16 12:14 50 mls/hr Q2H [facility] Administration Metoprolol Tartrate 2.5 mg 12/05/16 10:00 12/06/16 11:14 Lopressor IV Not Given Q12H [facility] Ondansetron HCl 4 mg 12/05/16 23:07 12/05/16 23:17 Zofran Inj IVP 4 mg Q4H PRN Administration Nausea/Vomiting - Patient Studies Lab Studies: Lab Studies 12/06/16 12/06/16 12/05/16 Range/Units 06:50 00:09 16:00 WBC 8.4 7.5 D 9.5 (4.5-11.0) 10^3/ul RBC 3.13 L 2.46 L 3.10 L (3.5-6.1) 10^6/uL Hgb 9.2 L 7.2 L D 9.1 L (12.0-16.0) gm/dL Hct 26.6 L 20.8 L* 26.1 L (36.0-48.0) % MCV 85.0 84.6 84.2 (80.0-105.0) fL MCH 29.4 29.3 29.4 (25.0-35.0) pg MCHC 34.6 34.6 34.9 (31.0-37.0) g/dl RDW 15.3 H 15.2 H 14.9 H (11.5-14.5) % Plt Count 96 L 99 L 135 (120.0-450.0) 10^3/uL MPV 10.7 10.0 10.7 (7.0-11.0) fl Gran % 75.7 H 72.6 H 80.4 H (50.0-68.0) % Lymph % (Auto) 14.8 L 20.7 L 13.2 L (22.0-35.0) % Coos % (Auto) 7.3 H 5.3 4.8 (1.0-6.0) % Eos % (Auto) 1.7 1.3 L 1.2 L (1.5-5.0) % Baso % (Auto) 0.5 0.1 0.4 (0.0-3.0) % Gran # 6.35 5.46 7.63 H (1.4-6.5) Lymph # 1.2 1.6 1.3 (1.2-3.4) Coos # 0.6 0.4 0.5 (0.1-0.6) Eos # 0.1 0.1 0.1 (0.0-0.7) Baso # 0.04 0.01 0.04 (0.0-2.0) K/mm3 Sodium 139 (132-148) mmol/L Potassium 3.4 L (3.6-5.0) mmol/L Chloride 110 (95-110) mmol/L Carbon Dioxide 22 (21-33) mmol/L Anion Gap 10 (10-20) BUN 9 (7-21) mg/dL Creatinine 0.6 (0.5-1.4) mg/dL Est GFR ( Amer) > 60 Est GFR (Non-Af Amer) > 60 Random Glucose 87 (70-110) mg/dL Calcium 6.9 L* (8.4-10.5) mg/dL Phosphorus 2.7 (2.5-4.5) mg/dL Magnesium 1.8 (1.7-2.2) mg/dL Total Bilirubin 0.7 (0.2-1.3) mg/dL AST 14 L (15-39) U/L ALT 27 (7-56) U/L Alkaline Phosphatase 35 L (38-133) U/L Total Protein 3.9 L (5.8-8.3) g/dL Albumin 1.9 L (3.0-4.8) g/dL Globulin 2.0 gm/dL Albumin/Globulin Ratio 1.0 L (1.1-1.8) Laboratory Results - last 24 hr 12/05/16 12/06/16 12/06/16 16:00 00:09 06:50 WBC 9.5 7.5 D 8.4 RBC 3.10 L 2.46 L 3.13 L Hgb 9.1 L 7.2 L D 9.2 L Hct 26.1 L 20.8 L* 26.6 L MCV 84.2 84.6 85.0 MCH 29.4 29.3 29.4 MCHC 34.9 34.6 34.6 RDW 14.9 H 15.2 H 15.3 H Plt Count 135 99 L 96 L MPV 10.7 10.0 10.7 Gran % 80.4 H 72.6 H 75.7 H Lymph % (Auto) 13.2 L 20.7 L 14.8 L Coos % (Auto) 4.8 5.3 7.3 H Eos % (Auto) 1.2 L 1.3 L 1.7 Baso % (Auto) 0.4 0.1 0.5 Gran # 7.63 H 5.46 6.35 Lymph # 1.3 1.6 1.2 Coos # 0.5 0.4 0.6 Eos # 0.1 0.1 0.1 Baso # 0.04 0.01 0.04 Sodium 139 Potassium 3.4 L Chloride 110 Carbon Dioxide 22 Anion Gap 10 BUN 9 Creatinine 0.6 Est GFR ( Amer) > 60 Est GFR (Non-Af Amer) > 60 Random Glucose 87 Calcium 6.9 L* Phosphorus 2.7 Magnesium 1.8 Total Bilirubin 0.7 AST 14 L ALT 27 Alkaline Phosphatase 35 L Total Protein 3.9 L Albumin 1.9 L Globulin 2.0 Albumin/Globulin Ratio 1.0 L Assessment/Plan - Assessment and Plan (Free Text) Assessment: 71 yo F w h/o diverticulosis admitted to ICU with acute LGIB Plan: Neuro: AAOx3, NAD Maintain normothermia CV: HD stable. Continue to monitor closely Maintain MAP >65 Continue Lipitor, Lopressor 2.5mg IV Q12hr Pulm: No acute issues. Maintain spo2>90 GI: Colonoscopy yesterday showed multiple small and large-mouthed diverticula throughout the entire colon, large amount of blood and blood cloths throughout the colon with no active bleeding, small internal hemorrhoids. Patient will need repeat colonoscopy in 4 months as per GI recs Initial bleeding scan 12/04 was positive for brisk sigmoid bleed Patient having repeat GI bleeding scan today. Follow result, GI and surgery recs s/p 6 unit pRBC total transfused since admission. Will transfuse 1unit platelets. 2units FFP as per surgery orders Continue protonix drip Renal: Ca2+ 8.5 upon correction for hypoalbuminemia Replaced K, Mg. Recheck AM BMP, Mg Endo: No acute issues. Maintain euglycemia 140-108 ID: No leukocytosis, afebrile. No signs of infection. Continue to monitor Heme: s/p 6 units pRBCs. Monitor H&H Q6hr. Hb 9.2 this AM. Transfuse PRN to Hb>7 DVT/GI ppx: Protonix gtt, NPO, IVF, SCDs - Date & Time Date: 12/06/16 Time: 11:28 <Ralph Guerrero - Last Filed: 12/06/16 14:01> CCU Objective - Vital Signs / Intake & Output Vital Signs (Last 4 hours): Vital Signs Temp Pulse Resp BP Pulse Ox 12/06/16 13:00 90 12/06/16 12:39 97 H 17 81/61 L 96 12/06/16 12:30 93 H 19 90/50 L 95 12/06/16 12:00 98.3 F 93 H 16 83/34 L 95 12/06/16 11:30 93 H 13 91/50 L 97 12/06/16 11:14 90 98/57 L 12/06/16 11:10 95 H 21 98/57 L 96 12/06/16 11:07 98 H 21 Intake and Output (Last 8hrs): Intake & Output 12/05/16 12/06/16 12/06/16 22:59 06:59 14:59 Intake Total 4040 3840 Output Total 2045 1800 Balance 1994 2039 Intake: IV 2040 240 Left Antecubital 240 Right Antecubital 0 Left Forearm 0 Oral 2000 0 Tube Feeding 0 TPN/PPN 0 Blood Product 1625 Red Blood Cells Cpd As1 325 Lr Unit [id number] Red Blood Cells Cpd As1 650 Lr Unit [id number] Lipid 0 Albumin 0 Other 1975 Red Blood Cells Cpd As1 0 Lr Unit [id number] Red Blood Cells Cpd As1 100 Lr Unit [id number] Output: Urine 900 1800 Urethral (Luevano) 900 1800 Stool 1145 0 Urine/Stool Mix 0 Emesis 0 0 Oral Regurgitation 0 Other 0 Other: Voiding Method Indwelling Catheter Indwelling Catheter # Voids Urethral (Luevano) 0 # Bowel Movements 7 0 - Medications Active Medications: Active Medications Generic Name Dose Route Start Last Admin Trade Name Freq PRN Reason Stop Dose Admin Acetaminophen 650 mg 12/04/16 05:43 12/04/16 05:51 Tylenol 325mg Tab PO 650 mg Q4H PRN Administration Pain, moderate (4-7) Atorvastatin Calcium 20 mg 12/04/16 17:00 12/05/16 17:52 Lipitor PO Not Given [facility] Pantoprazole Sodium 100 mls @ 20 mls/hr 12/04/16 07:00 12/06/16 11:10 Protonix 40mg Ivpb IVPB 20 mls/hr .Q5H [facility] Administration Sodium Chloride 1,000 mls @ 150 mls/hr 12/05/16 02:57 12/05/16 15:30 Sodium Chloride 0.9% IV 150 mls/hr .Q6H40M [facility] Administration Metoprolol Tartrate 2.5 mg 12/05/16 10:00 12/06/16 11:14 Lopressor IV Not Given Q12H [facility] Ondansetron HCl 4 mg 12/05/16 23:07 12/05/16 23:17 Zofran Inj IVP 4 mg Q4H PRN Administration Nausea/Vomiting - Patient Studies Lab Studies: Lab Studies 12/06/16 12/06/16 12/06/16 Range/Units 11:52 06:50 00:09 WBC 8.4 7.5 D (4.5-11.0) 10^3/ul RBC 3.13 L 2.46 L (3.5-6.1) 10^6/uL Hgb 8.3 L 9.2 L 7.2 L D (12.0-16.0) gm/dL Hct 26.6 L 20.8 L* (36.0-48.0) % MCV 85.0 84.6 (80.0-105.0) fL MCH 29.4 29.3 (25.0-35.0) pg MCHC 34.6 34.6 (31.0-37.0) g/dl RDW 15.3 H 15.2 H (11.5-14.5) % Plt Count 96 L 99 L (120.0-450.0) 10^3/uL MPV 10.7 10.0 (7.0-11.0) fl Gran % 75.7 H 72.6 H (50.0-68.0) % Lymph % (Auto) 14.8 L 20.7 L (22.0-35.0) % Coos % (Auto) 7.3 H 5.3 (1.0-6.0) % Eos % (Auto) 1.7 1.3 L (1.5-5.0) % Baso % (Auto) 0.5 0.1 (0.0-3.0) % Gran # 6.35 5.46 (1.4-6.5) Lymph # 1.2 1.6 (1.2-3.4) Coos # 0.6 0.4 (0.1-0.6) Eos # 0.1 0.1 (0.0-0.7) Baso # 0.04 0.01 (0.0-2.0) K/mm3 Sodium 139 (132-148) mmol/L Potassium 3.4 L (3.6-5.0) mmol/L Chloride 110 (95-110) mmol/L Carbon Dioxide 22 (21-33) mmol/L Anion Gap 10 (10-20) BUN 9 (7-21) mg/dL Creatinine 0.6 (0.5-1.4) mg/dL Est GFR ( Amer) > 60 Est GFR (Non-Af Amer) > 60 Random Glucose 87 (70-110) mg/dL Calcium 6.9 L* (8.4-10.5) mg/dL Phosphorus 2.7 (2.5-4.5) mg/dL Magnesium 1.8 (1.7-2.2) mg/dL Total Bilirubin 0.7 (0.2-1.3) mg/dL AST 14 L (15-39) U/L ALT 27 (7-56) U/L Alkaline Phosphatase 35 L (38-133) U/L Total Protein 3.9 L (5.8-8.3) g/dL Albumin 1.9 L (3.0-4.8) g/dL Globulin 2.0 gm/dL Albumin/Globulin Ratio 1.0 L (1.1-1.8) 12/05/16 Range/Units 16:00 WBC 9.5 (4.5-11.0) 10^3/ul RBC 3.10 L (3.5-6.1) 10^6/uL Hgb 9.1 L (12.0-16.0) gm/dL Hct 26.1 L (36.0-48.0) % MCV 84.2 (80.0-105.0) fL MCH 29.4 (25.0-35.0) pg MCHC 34.9 (31.0-37.0) g/dl RDW 14.9 H (11.5-14.5) % Plt Count 135 (120.0-450.0) 10^3/uL MPV 10.7 (7.0-11.0) fl Gran % 80.4 H (50.0-68.0) % Lymph % (Auto) 13.2 L (22.0-35.0) % Coos % (Auto) 4.8 (1.0-6.0) % Eos % (Auto) 1.2 L (1.5-5.0) % Baso % (Auto) 0.4 (0.0-3.0) % Gran # 7.63 H (1.4-6.5) Lymph # 1.3 (1.2-3.4) Coos # 0.5 (0.1-0.6) Eos # 0.1 (0.0-0.7) Baso # 0.04 (0.0-2.0) K/mm3 Sodium (132-148) mmol/L Potassium (3.6-5.0) mmol/L Chloride (95-110) mmol/L Carbon Dioxide (21-33) mmol/L Anion Gap (10-20) BUN (7-21) mg/dL Creatinine (0.5-1.4) mg/dL Est GFR ( Amer) Est GFR (Non-Af Amer) Random Glucose (70-110) mg/dL Calcium (8.4-10.5) mg/dL Phosphorus (2.5-4.5) mg/dL Magnesium (1.7-2.2) mg/dL Total Bilirubin (0.2-1.3) mg/dL AST (15-39) U/L ALT (7-56) U/L Alkaline Phosphatase (38-133) U/L Total Protein (5.8-8.3) g/dL Albumin (3.0-4.8) g/dL Globulin gm/dL Albumin/Globulin Ratio (1.1-1.8) Laboratory Results - last 24 hr 12/05/16 12/06/16 12/06/16 16:00 00:09 06:50 WBC 9.5 7.5 D 8.4 RBC 3.10 L 2.46 L 3.13 L Hgb 9.1 L 7.2 L D 9.2 L Hct 26.1 L 20.8 L* 26.6 L MCV 84.2 84.6 85.0 MCH 29.4 29.3 29.4 MCHC 34.9 34.6 34.6 RDW 14.9 H 15.2 H 15.3 H Plt Count 135 99 L 96 L MPV 10.7 10.0 10.7 Gran % 80.4 H 72.6 H 75.7 H Lymph % (Auto) 13.2 L 20.7 L 14.8 L Coos % (Auto) 4.8 5.3 7.3 H Eos % (Auto) 1.2 L 1.3 L 1.7 Baso % (Auto) 0.4 0.1 0.5 Gran # 7.63 H 5.46 6.35 Lymph # 1.3 1.6 1.2 Coos # 0.5 0.4 0.6 Eos # 0.1 0.1 0.1 Baso # 0.04 0.01 0.04 Sodium 139 Potassium 3.4 L Chloride 110 Carbon Dioxide 22 Anion Gap 10 BUN 9 Creatinine 0.6 Est GFR ( Amer) > 60 Est GFR (Non-Af Amer) > 60 Random Glucose 87 Calcium 6.9 L* Phosphorus 2.7 Magnesium 1.8 Total Bilirubin 0.7 AST 14 L ALT 27 Alkaline Phosphatase 35 L Total Protein 3.9 L Albumin 1.9 L Globulin 2.0 Albumin/Globulin Ratio 1.0 L 12/06/16 11:52 WBC RBC Hgb 8.3 L Hct MCV MCH MCHC RDW Plt Count MPV Gran % Lymph % (Auto) Coos % (Auto) Eos % (Auto) Baso % (Auto) Gran # Lymph # Coos # Eos # Baso # Sodium Potassium Chloride Carbon Dioxide Anion Gap BUN Creatinine Est GFR ( Amer) Est GFR (Non-Af Amer) Random Glucose Calcium Phosphorus Magnesium Total Bilirubin AST ALT Alkaline Phosphatase Total Protein Albumin Globulin Albumin/Globulin Ratio Addendum Addendum: 12/06/16 13:49 patient was seen, examined and disucssed at bedside shoulder to shoulder with Dr. Peck. Her note reflects my exam, assessment and plan except as below. meds /Labs/ONE reviewed. 71 yo female with low GI bleed, requiring 6 units PRBC so far. repeated bleeding scan didnt show active bleed in contrast with previous study 2 days ago. Colonoscopy yesterday also didnt show active bleed as well. Patient however was still dropping Hb. We will transfuse 1 bag of plts, 2 ffp and maintain Hb above 7 in the setting of hemodynamic stability, adequate tissues perfusion (NL lactate) and absence of acute myocaridal ischemia (trop x 3 neg and no chest pain). Surgery and GI on stand by [facility] time 40 min
--- NOTE | 2016-12-06 12:06 | NM ---
PROCEDURE: Nuclear medicine gastrointestinal bleeding scan. HISTORY: follow up active GIB COMPARISON: None available. TECHNIQUE: 4 cc of patient blood was withdrawn and mixed with 21 mCi of technetium ultra tagged. Images of the abdomen and pelvis were obtained in the anterior and posterior projection at 1 min intervals over a period of 45 min. FINDINGS: No abnormal extravasation of tracer was observed throughout the exam to indicate active bleeding within or outside the gastrointestinal tract. Physiologic activity was seen in the heart, liver, spleen and blood vessels. IMPRESSION: No evidence of active gastrointestinal bleeding.
[2016-12-06] MEDS ORDERED: Phytonadione 10 mg/ml Inj (Adult) SC STA (12:13)
--- NOTE | 2016-12-06 16:10 | CP.PCM.PN ---
<Andrey Mckeon - Last Filed: 12/06/16 16:04> Subjective - Date & Time of Evaluation Date of Evaluation: 12/06/16 Time of Evaluation: 07:15 - Subjective Subjective: Patient seen and examined at bedside. Patient received 2 units of PRBC overnight. In the morning her hemoglobin was 9.2, but patient had a episode of dark bloody stool after that CBC was done. Patient complains of feeling hungry and anxious because she has not had food since she came to the hospital. Denies having fever, chills, shortness of breath, chest pain, nausea or vomiting. Objective - Vital Signs/Intake and Output Vital Signs (last 24 hours): Temp Pulse Resp BP Pulse Ox 98.3 F 89 18 99/38 L 94 L 12/06/16 12:00 12/06/16 15:51 12/06/16 15:30 12/06/16 15:30 12/06/16 15:30 Intake and Output: 12/06/16 12/06/16 06:59 18:59 Intake Total 3840 Output Total 1800 Balance 2040 - Medications Medications: Current Medications Acetaminophen (Tylenol 325mg Tab) 650 mg PO Q4H PRN PRN Reason: Pain, moderate (4-7) Last Admin: 12/04/16 05:51 Dose: 650 mg Atorvastatin Calcium (Lipitor) 20 mg PO DIN [facility] Last Admin: 12/05/16 17:52 Dose: Not Given Pantoprazole Sodium (Protonix 40mg Ivpb) 100 mls @ 20 mls/hr IVPB .Q5H [facility] Last Admin: 12/06/16 11:10 Dose: 20 mls/hr Sodium Chloride (Sodium Chloride 0.9%) 1,000 mls @ 150 mls/hr IV .Q6H40M [facility] Last Admin: 12/05/16 15:30 Dose: 150 mls/hr Metoprolol Tartrate (Lopressor) 2.5 mg IV Q12H [facility] Last Admin: 12/06/16 11:14 Dose: Not Given Ondansetron HCl (Zofran Inj) 4 mg IVP Q4H PRN PRN Reason: Nausea/Vomiting Last Admin: 12/05/16 23:17 Dose: 4 mg - Labs Labs: 12/06/16 11:52 12/06/16 06:50 PT 11.3 Seconds (9.9-11.8) 12/04/16 08:40 INR 1.05 (0.93-1.08) 12/04/16 08:40 APTT 22.2 Seconds (23.7-30.8) L 12/04/16 08:40 - Constitutional Appears: Non-toxic, No Acute Distress - Head Exam Head Exam: ATRAUMATIC, NORMOCEPHALIC - Eye Exam Eye Exam: Normal appearance - ENT Exam ENT Exam: Mucous Membranes Moist - Neck Exam Neck Exam: Normal Inspection - Respiratory Exam Respiratory Exam: Clear to Ausculation Bilateral, NORMAL BREATHING PATTERN. absent: Rhonchi, Wheezes, Respiratory Distress - Cardiovascular Exam Cardiovascular Exam: REGULAR RHYTHM, RRR, +S1, +S2. absent: Murmur - GI/Abdominal Exam GI & Abdominal Exam: Soft, Normal Bowel Sounds. absent: Distended, Rigid, Tenderness - Rectal Exam Additional comments: No active bleeding appreciated - Extremities Exam Extremities Exam: Normal Inspection. absent: Tenderness - Neurological Exam Neurological Exam: Alert, Awake, Oriented x3 - Psychiatric Exam Psychiatric exam: Normal Affect, Normal Mood - Skin Skin Exam: Dry, Intact, Warm Assessment and Plan - Assessment and Plan (Free Text) Assessment: 71 yo female with past medical hx valvular heart disease, GI bleed, breast cancer presenting with hematochezia x 1 day. GI bleed/hematochezia -s/p 6 pRBC transfusion -CBC Q6, continue to monitor -Hgb 9.2 in the AM, 8.2 at noon -ct shows diverticulosis, esophagitis, cystic structure 2.2 cm pancreatic neck -GI consult. Dr. Kam. recs appreciated -Colonoscopy yesterday showed diverticula throughout colon, small amount of blood in terminal ileum. No active bleeding appreciated (see full report) -Stat bleeding scan today showed no active bleeding -Surgery ordered to transfuse 1unit platelets and 2units FFP -protonix -NS 150 cc/hr -no leukocytosis, pt is afebrile, not in distress -NPO HTN -Continue metoprolol IV Hx of HLD -continue home statin hx of valvular heart disease -cardio consult. Dr. Barber. recs appreciated -Monitor I&O hx of breast cancer -continue to monitor GI/DVT ppx -protonix -SCDs <Barbra HOLLIS,Ewa - Last Filed: 12/06/16 17:11> Objective - Vital Signs/Intake and Output Vital Signs (last 24 hours): Temp Pulse Resp BP Pulse Ox 98.4 F 99 H 18 89/59 L 94 L 12/06/16 16:49 12/06/16 16:49 12/06/16 16:49 12/06/16 16:49 12/06/16 15:30 Intake and Output: 12/06/16 12/06/16 06:59 18:59 Intake Total 3840 5 Output Total 1800 Balance 2040 5 - Medications Medications: Current Medications Acetaminophen (Tylenol 325mg Tab) 650 mg PO Q4H PRN PRN Reason: Pain, moderate (4-7) Last Admin: 12/04/16 05:51 Dose: 650 mg Atorvastatin Calcium (Lipitor) 20 mg PO DIN [facility] Last Admin: 12/05/16 17:52 Dose: Not Given Pantoprazole Sodium (Protonix 40mg Ivpb) 100 mls @ 20 mls/hr IVPB .Q5H [facility] Last Admin: 12/06/16 11:10 Dose: 20 mls/hr Sodium Chloride (Sodium Chloride 0.9%) 1,000 mls @ 150 mls/hr IV .Q6H40M [facility] Last Admin: 12/05/16 15:30 Dose: 150 mls/hr Metoprolol Tartrate (Lopressor) 2.5 mg IV Q12H [facility] Last Admin: 12/06/16 11:14 Dose: Not Given Ondansetron HCl (Zofran Inj) 4 mg IVP Q4H PRN PRN Reason: Nausea/Vomiting Last Admin: 12/05/16 23:17 Dose: 4 mg - Labs Labs: 12/06/16 11:52 12/06/16 06:50 PT 11.3 Seconds (9.9-11.8) 12/04/16 08:40 INR 1.05 (0.93-1.08) 12/04/16 08:40 APTT 22.2 Seconds (23.7-30.8) L 12/04/16 08:40 Attending/Attestation - Attestation I have personally seen and examined this patient.: Yes I have fully participated in the care of the patient.: Yes I have reviewed all pertinent clinical information, including history, physical exam and plan: Yes Notes (Text): Patient was seen and examined with medical laboratory technical officer .Agreed with resident assessment and plan. Patient with lower GI bleeding , had 8 units of PRBC , bleeding scan today was negative for acute bleeding.We will continue monitoring, GI , Surgery and critical care team are following. Management plan was discussed in detail with patient Education was provided.
[2016-12-06] MEDS: Sodium Chloride 0.9% 1,000 ML IV SCH (17:26)
[2016-12-06 18:01] LABS: ADD MANUAL DIFF? NO; BASO # 0.02 K/mm3 (0.0-2.0); BASO % 0.3 % (0.0-3.0); EOS # 0.1 (0.0-0.7); EOS % 1.4 % (1.5-5.0); GRAN # 6.12 (1.4-6.5); GRAN % 78.9 % (50.0-68.0); LYMPH # 1.1 (1.2-3.4); LYMPH % 14.5 % (22.0-35.0); MEAN CELL VOLUME 83.7 fL (80.0-105.0); MEAN CORPUSCULAR HEMOGLOBIN 29.7 pg (25.0-35.0); MEAN CORPUSCULAR HGB CONC 35.5 g/dl (31.0-37.0); MEAN PLATELET VOLUME 9.8 fl (7.0-11.0); MONO # 0.4 (0.1-0.6); MONO % 4.9 % (1.0-6.0); PLATELET COUNT 146 10^3/uL (120.0-450.0); RED CELL DISTRIBUTION WIDTH 15.5 % (11.5-14.5); WHITE BLOOD COUNT 7.8 10^3/ul (4.5-11.0)
[2016-12-06 18:03] LABS: INR 1.06 (0.93-1.08); PARTIAL THROMBOPLASTIN TIME 23.1 Seconds (23.7-30.8)
[2016-12-06 18:04] LABS: ALKALINE PHOSPHATASE 45 U/L (38-133); ALT/SGPT 36 U/L (7-56); AST/SGOT 30 U/L (15-39); BILIRUBIN,TOTAL 0.5 mg/dL (0.2-1.3); BLOOD UREA NITROGEN 12 mg/dL (7-21); CARBON DIOXIDE 24 mmol/L (21-33); CHLORIDE 106 mmol/L (98-107); GFR AFRICAN-AMERICAN > 60; GLUCOSE,RANDOM 82 mg/dL (70-110); MAGNESIUM 1.9 mg/dL (1.7-2.2); PHOSPHOROUS 2.6 mg/dL (2.5-4.5); POTASSIUM 3.7 mmol/L (3.6-5.0); SODIUM 137 mmol/L (132-148); TOTAL PROTEIN 5.2 g/dL (5.8-8.3)
[2016-12-06 20:19] LABS: ADD MANUAL DIFF? NO
[2016-12-06 20:31] LABS: BASO # 0.02 K/mm3 (0.0-2.0); BASO % 0.3 % (0.0-3.0); EOS # 0.1 (0.0-0.7); EOS % 1.5 % (1.5-5.0); GRAN # 5.73 (1.4-6.5); GRAN % 76.1 % (50.0-68.0); LYMPH # 1.2 (1.2-3.4); LYMPH % 16.3 % (22.0-35.0); MEAN CELL VOLUME 84.6 fL (80.0-105.0); MEAN CORPUSCULAR HEMOGLOBIN 29.4 pg (25.0-35.0); MEAN CORPUSCULAR HGB CONC 34.8 g/dl (31.0-37.0); MEAN PLATELET VOLUME 9.1 fl (7.0-11.0); MONO # 0.4 (0.1-0.6); MONO % 5.8 % (1.0-6.0); PLATELET COUNT 167 10^3/uL (120.0-450.0); RED CELL DISTRIBUTION WIDTH 15.8 % (11.5-14.5); WHITE BLOOD COUNT 7.5 10^3/ul (4.5-11.0)
[2016-12-06 20:34] LABS: HEMATOCRIT 18.1 % (36.0-48.0)
[2016-12-06 23:03] LABS: HEMATOCRIT 19.9 % (36.0-48.0)
--- NOTE | 2016-12-07 00:07 | CP.PCM.PCO ---
Subjective - Physician Review Events Since Last Encounter (Free Text): 12/07/16 00:03 Late Entry: Patient passed another bowel movement with thick blood clots; subsequent repeated hgb around 8pm showing further drop to 6.3 from 7.1; Clearly she is still bleeding. Ordered for 3 units PRBC to be transfused; Case discussed with Dr. Kam for possible Colonoscopy; he stated that the patient would not benefit from a Colonoscopy at this time due to continued bleeding and lack of visualization without adequate bowel prep. Discussed the Case with Dr. Osuna who is aware of patient's current condition and continued bleeding; agrees with transfusion of prbc; if patient becomes hemodynamically unstable, will reach out to him for possible emergent colectomy. Currently the patient has remained on the lower spectrum of being normotensive and has a hr in the 90' s; she is not complaining of any pain or discomfort at this time. 12/07/16 02:15 Patient continued to pass bloody BM's with large clots; repeat hgb check and went from 6.3 to 6.9 to 7.6. Given the fact that the patient is continuously bleeding and requiring blood transfusions, Dr. Osuna present at bedside; patient is going to the OR emergently.
[2016-12-07] MEDS: Pantoprazole 40mg/100ml IVPB 100 ML IVPB SCH ×4 (00:13→19:40)
[2016-12-07 01:44] LABS: HEMATOCRIT 21.7 % (36.0-48.0)
[2016-12-07] MEDS ORDERED: Phenylephrine 10 mg/ml Inj ONE (02:21)
[2016-12-07] MEDS ORDERED: Rocuronium 10 mg/ml (5 ml) ONE ×2 (02:22→06:04)
[2016-12-07] MEDS ORDERED: Succinylcholine 200 mg/10 ml Inj IV ONE (02:22)
[2016-12-07] MEDS ORDERED: Etomidate 20 mg/10ml Inj IV ONE (02:22)
[2016-12-07] MEDS ORDERED: ePHEDrine 50 mg/ml Inj ONE (02:45)
[2016-12-07] MEDS ORDERED: metroNIDAZOLE IV 500 mg/100 ml 100 ML ONE (03:28)
[2016-12-07] MEDS: Metoprolol 1 mg/ml Inj IV SCH ×3 (03:41→20:56)
[2016-12-07] MEDS ORDERED: Midazolam 2 MG/2 ML VIAL ONE ×3 (04:03→06:10)
[2016-12-07] MEDS ORDERED: Esmolol 100 mg/10ml Inj IV ONE (04:49)
[2016-12-07] MEDS ORDERED: Liquid Adhesive TOP ONE (06:52)
[2016-12-07] MEDS ORDERED: Midazolam 2 MG/2 ML VIAL IVP ONE ×2 (07:31→07:49)
--- NOTE | 2016-12-07 07:57 | PN ---
DATE: 12/06/2016 This is an addendum to the GI progress report dictated earlier. The patient did have repeat blood wo rk. I was called about the repeat blood work at 9:30 p.m. and her hemoglobin was 6.3. The patient d id have another bowel movement. The blood count done at 6:00 p.m. was 7.1. The patient did receive 2 units of fresh frozen plasma, unit of platelets and also paz K-riders and other fluids. The patient was before getting 150 mL per hour of IV fluids. The concern at that time in the evening when I saw the patient around 7:30 was the possibility of hemodilution as well the active bleeding had passed. The patient had only one episode of bleeding since morning. ____ has requested to hold the transfus ion and have repeat blood work checked. Her repeat blood work, I was called abort this 6:30, 6.3. I did discuss with the labor and employment paralegal to consider the 2 units of packed RBC to be transfused and also let the surgical team to know and follow up. I also discussed with Dr. Osuna. The patient did paz ve a colonoscopy done yesterday, found to have a large amount of clotted blood and complete large was done and coloscope was ____ cecum. All the diverticula were freed with the clotted blood. There wa s no active ongoing bleeding source identified. The patient has since then had another bleeding scan which was negative. In view of the recent colonoscopy and also nuclear scans done did not show, the re is possibility of intermittent episodes of this bleeding could be the reason. The reasonable appr [facility] for this patient, at this point, with the clinical presentation, it is difficult to ____ colonos copy ____. In this patient, this appeared to be like an intermittent period. Another real concern is the risk of complications with this bleeding unless the colon is prepared. T he patient was reluctant to take GoLYTELY at the moment. PLAN: I did discuss with Dr. Osuna about ____. The plan is to consider for the transfusion an d watch the blood count. If active ongoing bleeding or continues to drop, the patient may need surgi virgen intervention. I also discussed with the patient and also the patient's daughter at length kimmy [email or web address] Kain Kam MD cc: [id number] TT: 12/07/2016 07:56:34 Confirmation # [id number] Dictation # [id number] tn
--- NOTE | 2016-12-07 08:01 | PCM.SURG1 ---
Surgeon's Initial Post Op Note - Surgeon's Notes Surgeon: Dr. Osuna Manager Nicu: Dr. Calderon PGY-2 Type of Anesthesia: General Endo Pre-Operative Diagnosis: Lower GI bleed, diverticulosis Operative Findings: see operative report Post-Operative Diagnosis: Lower GI bleed, diverticulosis Operation Performed: Exploratory laparotomy, Left bartolome colectomy, splenic flexure mobilization, partial omentectomy, end colostomy, intraoperative bowel lavage, rigid procto sigmoidoscopy Specimen/Specimens Removed: left colon, omentum Estimated Blood Loss: EBL {In ML}: 100 Blood Products Given: PRBC (x3) Drains Used: Robert Post-Op Condition: Poor Date of Surgery/Procedure: 12/07/16 Time of Surgery/Procedure: 03:00
[2016-12-07] MEDS ORDERED: Sodium Chloride 0.9% 100 ML IV SCH (08:15)
[2016-12-07 09:21] LABS: ADD MANUAL DIFF? NO
[2016-12-07 09:28] LABS: BASO # 0.01 K/mm3 (0.0-2.0); BASO % 0.1 % (0.0-3.0); EOS # 0.1 (0.0-0.7); EOS % 0.4 % (1.5-5.0); GRAN # 10.84 (1.4-6.5); GRAN % 82.6 % (50.0-68.0); LYMPH # 1.4 (1.2-3.4); LYMPH % 10.7 % (22.0-35.0); MEAN CELL VOLUME 85.8 fL (80.0-105.0); MEAN CORPUSCULAR HEMOGLOBIN 30.3 pg (25.0-35.0); MEAN CORPUSCULAR HGB CONC 35.3 g/dl (31.0-37.0); MEAN PLATELET VOLUME 9.7 fl (7.0-11.0); MONO # 0.8 (0.1-0.6); MONO % 6.2 % (1.0-6.0); PLATELET COUNT 115 10^3/uL (120.0-450.0); RED CELL DISTRIBUTION WIDTH 15.1 % (11.5-14.5); WHITE BLOOD COUNT 13.1 10^3/ul (4.5-11.0)
--- NOTE | 2016-12-07 09:31 | PN ---
DATE: 12/07/2016 SUBJECTIVE: The patient is post-hemicolectomy, just transferred back to the intensive care unit, hem odynamically stable. The patient is on the ventilator with FiO2 of 60%, and noted to have colostomy and no mucus or stool or blood from the colostomy site. The patient is on Diprivan for sedation, and IV fluids. Will follow hemoglobin closely. The patient noted to have gotten 2 more units of packed red blood cells during the OR procedure. PHYSICAL EXAMINATION: Note that her temperature is 97.8, her pulse is 89, respirations are 12, and BP is 100/66. O2 satura tion on the ventilator support is 100%. HEAD: Atraumatic, normocephalic. EYES: Reactive to light. EARS, NOSE AND THROAT: Seem to be within normal limits. NECK: Supple. No JVD, no thyroid enlargement, no lymph nodes. HEART: Has a regular rate and rhythm. Normal S1, S2. LUNGS: Reveal good breath sounds bilaterally. ABDOMEN: Soft. No obvious bowel sounds. Post-surgical scar and colostomy. GENITALIA AND RECTAL: Deferred. MUSCULOSKELETAL: No joint deformities. EXTREMITIES: Reveal no significant edema. NEUROLOGICALLY: The patient is sedated on the ventilator. As far as her laboratories are concerned, her white count is 7.5, hemoglobin is 7.6, hematocrit 21.7, and platelets of 167,000. Arterial blood gas is pending. Today's CMP is pending as well. IMPRESSION: The patient has acute gastrointestinal bleed with severe anemia, requiring multiple unit s of packed red blood cells. The patient is post-surgical procedure for hemicolectomy, and at this t horace does have a colostomy. The patient has respiratory insufficiency requiring ventilator support wi th FiO2 of 60%. The patient has a history of diverticulitis. Note that the patient has anemia. PLAN: We will continue with ventilator support and decrease the FiO2 as tolerated. The patient will be on Diprivan for sedation, and we will follow the patient's hemoglobin closely and give blood prod ucts as needed. The patient will be followed closely by surgery as well. We will follow her chest x -ray and will continue to treat aggressively, along with the other consultants and the primary care d oc. Alpesh Dempsey MD cc: [id number] TT: 12/07/2016 09:30:39 Confirmation # [id number] Dictation # [id number] jn
[2016-12-07 09:34] LABS: INR 1.1 (0.93-1.08); PARTIAL THROMBOPLASTIN TIME 21.3 Seconds (23.7-30.8)
--- NOTE | 2016-12-07 09:41 | PN ---
DATE: 12/07/2016 SUBJECTIVE: The patient is seen lying in bed, intubated in the postanesthesia recovery area. She underwent emergency hemicolectomy and colostomy early this morning. She continues to have evidence of ongoing GI bleed requiring extensive amount of transfusion. She is currently intubated and sedated. Her blood pressure is borderline low. There are no reports of any major intraoperative complications during surgery. CURRENT MEDICATIONS: Include Diprivan, Lopressor 2.5 mg IV q. 12 hours, Protonix and Zofran p.r.n. OBJECTIVE: GENERAL: She is a middle-aged woman who appears sedated, but comfortable. VITAL SIGNS: Her blood pressure is 90/60 with a pulse of 90 in sinus. Respirations are 16. She is afebrile. HEENT: She is orally intubated. CHEST: Good bilateral breath sounds. HEART: PMI displaced laterally with a systolic murmur at the apex. ABDOMEN: Surgical dressing in place. Bowel sounds are absent. EXTREMITIES: No edema. DIAGNOSTIC DATA: Hemoglobin and hematocrit are 7.6 and 21.7, last white count is 7.5, platelet count 167,000. Arterial blood gas is pending. Potassium 3.7, BUN and creatinine are 12 and 0.7. IMPRESSION: 1. Status post hemicolectomy for persistent diverticular bleeding. 2. Chronic mitral regurgitation. 3. Mild to moderate left ventricular systolic dysfunction. RECOMMENDATIONS: Continued close ICU monitoring is advised. Transfusion to a hemoglobin above 9 would be advisable. Beta bobby therapy will be withheld for systolic pressure below 90. Repeat chest x-ray is pending. Her prognosis remains extremely guarded at this time. We will continue to follow along and make further recommendations as appropriate. Efraín Quintero MD cc: [id number] TT: 12/07/2016 09:40:24 Confirmation # [id number] Dictation # [id number] wali MOSER
[2016-12-07] MEDS: metroNIDAZOLE IV 500 mg in 100 ML IVPB SCH ×2 (10:36→19:26)
[2016-12-07 11:18] LABS: ALB/GLOB RATIO 0.9 (1.1-1.8); ALKALINE PHOSPHATASE 28 U/L (38-133); ALT/SGPT 38 U/L (7-56); AST/SGOT 20 U/L (15-39); BLOOD UREA NITROGEN 11 mg/dL (7-21); CARBON DIOXIDE 19 mmol/L (21-33); CHLORIDE 114 mmol/L (98-107); GFR AFRICAN-AMERICAN > 60; GLUCOSE,RANDOM 101 mg/dL (70-110); POTASSIUM 3.2 mmol/L (3.6-5.0); SODIUM 138 mmol/L (132-148); TOTAL PROTEIN 3.6 g/dL (5.8-8.3)
[2016-12-07 11:25] LABS: CALCIUM 6.1 mg/dL (8.4-10.5)
[2016-12-07] MEDS ORDERED: Sodium Chloride 0.9% 1,000 ML IV SCH (12:00)
[2016-12-07] MEDS: HYDROmorphone 1 mg/ml ISec IVP PRN (12:55)
[2016-12-07 14:15] LABS: HEMATOCRIT 25.2 % (36.0-48.0)
--- NOTE | 2016-12-07 14:43 | CP.PCM.PN ---
<Dell Villarreal - Last Filed: 12/07/16 14:40> Subjective - Date & Time of Evaluation Date of Evaluation: 12/07/16 Time of Evaluation: 07:25 - Subjective Subjective: Medicine Progress note. Dr. Belle Pt seen and examined at bedside. Patient was emergently taken to the OR by Dr. Skelton last night at 3AM. Patient had Left hemicolectomy and end colostomy. Remains intubated. ROS unobtainable. Objective - Vital Signs/Intake and Output Vital Signs (last 24 hours): Temp Pulse Resp BP Pulse Ox 97.6 F 101 H 15 116/62 93 L 12/07/16 11:54 12/07/16 11:31 12/07/16 09:39 12/07/16 11:31 12/07/16 11:31 Intake and Output: 12/07/16 12/07/16 06:59 18:59 Intake Total 1576 1890 Output Total 1780 775 Balance -204 1115 - Medications Medications: Current Medications Acetaminophen (Tylenol 325mg Tab) 650 mg PO Q4H PRN PRN Reason: Pain, moderate (4-7) Last Admin: 12/04/16 05:51 Dose: 650 mg Atorvastatin Calcium (Lipitor) 20 mg PO DIN [facility] Last Admin: 12/06/16 17:25 Dose: Not Given Hydromorphone HCl (Dilaudid) 1 mg IVP Q4H PRN PRN Reason: Pain, moderate (4-7) Last Admin: 12/07/16 12:55 Dose: 1 mg Pantoprazole Sodium (Protonix 40mg Ivpb) 100 mls @ 20 mls/hr IVPB .Q5H [facility] Last Admin: 12/07/16 14:18 Dose: 20 mls/hr Propofol (Diprivan) 100 mls @ 22.657 mls/hr IV .Q4H25M PRN; Protocol; 50 MCG/KG /MIN PRN Reason: TITRATE PER MD ORDER Last Admin: 12/07/16 14:21 Dose: 18.2 mls/hr Cefoxitin Sodium 2 gm/ Sodium (Chloride) 100 mls @ 100 mls/hr IV 1141,1941 [facility] Stop: 12/07/16 20:40 Last Admin: 12/07/16 11:33 Dose: 100 mls/hr Metronidazole (Flagyl) 100 mls @ 100 mls/hr IVPB 1126,1926 [facility] Stop: 12/07/16 20:25 Last Admin: 12/07/16 10:36 Dose: 100 mls/hr Sodium Chloride (Sodium Chloride 0.9%) 1,000 mls @ 40 mls/hr IV .Q24H [facility] Last Admin: 12/07/16 09:57 Dose: 40 mls/hr Metoprolol Tartrate (Lopressor) 2.5 mg IV Q12H [facility] Last Admin: 12/07/16 10:34 Dose: Not Given Ondansetron HCl (Zofran Inj) 4 mg IVP Q4H PRN PRN Reason: Nausea/Vomiting Last Admin: 12/05/16 23:17 Dose: 4 mg - Labs Labs: 12/07/16 13:40 12/07/16 09:10 PT 11.9 Seconds (9.9-11.8) H 12/07/16 09:10 INR 1.10 (0.93-1.08) H 12/07/16 09:10 APTT 21.3 Seconds (23.7-30.8) L 12/07/16 09:10 - Constitutional Appears: No Acute Distress - Head Exam Head Exam: ATRAUMATIC, NORMAL INSPECTION, NORMOCEPHALIC - ENT Exam ENT Exam: Mucous Membranes Moist Additional comments: Intubated. - Respiratory Exam Respiratory Exam: Clear to Ausculation Bilateral, NORMAL BREATHING PATTERN. absent: Wheezes - Cardiovascular Exam Cardiovascular Exam: RRR, +S1, +S2. absent: JVD - GI/Abdominal Exam Additional comments: Midline incision. Left sided colostomy, no out-put. SONU drain in place. Dressings clean, dry and intact - Neurological Exam Additional comments: Intubated, sedated - Skin Skin Exam: Dry, Intact, Normal Color, Warm Assessment and Plan - Assessment and Plan (Free Text) Assessment: 71 yo F with PMHx of valvular heart disease, GI bleed, and breast cancer presenting with hematochezia. Taken emergently to the OR 12/07/16 early AM. 1. GI bleed/hematochezia s/p LT hemicolectomy, End colostomy. 12/07 s/p multiple pRBC infusions monitor for continued bleeding CBC Q6, continue to monitor CT shows diverticulosis, esophagitis, cystic structure 2.2 cm pancreatic neck GI consult. Dr. Kam. recs appreciated Colonoscopy 12/05 showed diverticula throughout colon, small amount of blood in terminal ileum. No active bleeding appreciated (see full report) Surgery following, Dr. Skelton, appreciate recs protonix IVF NS no leukocytosis, pt is afebrile, not in distress NPO 2. Hx of HTN Continue metoprolol IV 3. Hx of HLD continue home statin 4. Hx of valvular heart disease cardio consult. Dr. Barber. recs appreciated Monitor I&O 5. Hx of breast cancer continue to monitor 6. PPx protonix SCDs Discussed case with Dr. Barbra Villarreal PGY1 <Ewa Belle MD - Last Filed: 12/07/16 15:44> Objective - Vital Signs/Intake and Output Vital Signs (last 24 hours): Temp Pulse Resp BP Pulse Ox 97.6 F 101 H 15 116/62 93 L 12/07/16 11:54 12/07/16 11:31 12/07/16 09:39 12/07/16 11:31 12/07/16 11:31 Intake and Output: 12/07/16 12/07/16 06:59 18:59 Intake Total 1576 1970 Output Total 1780 875 Balance -204 1095 - Medications Medications: Current Medications Acetaminophen (Tylenol 325mg Tab) 650 mg PO Q4H PRN PRN Reason: Pain, moderate (4-7) Last Admin: 12/04/16 05:51 Dose: 650 mg Atorvastatin Calcium (Lipitor) 20 mg PO DIN [facility] Last Admin: 12/06/16 17:25 Dose: Not Given Hydromorphone HCl (Dilaudid) 1 mg IVP Q4H PRN PRN Reason: Pain, moderate (4-7) Last Admin: 12/07/16 12:55 Dose: 1 mg Pantoprazole Sodium (Protonix 40mg Ivpb) 100 mls @ 20 mls/hr IVPB .Q5H [facility] Last Admin: 12/07/16 14:18 Dose: 20 mls/hr Propofol (Diprivan) 100 mls @ 22.657 mls/hr IV .Q4H25M PRN; Protocol; 50 MCG/KG /MIN PRN Reason: TITRATE PER MD ORDER Last Admin: 12/07/16 14:21 Dose: 18.2 mls/hr Cefoxitin Sodium 2 gm/ Sodium (Chloride) 100 mls @ 100 mls/hr IV 1141,1941 [facility] Stop: 12/07/16 20:40 Last Admin: 12/07/16 11:33 Dose: 100 mls/hr Metronidazole (Flagyl) 100 mls @ 100 mls/hr IVPB 1126,1926 [facility] Stop: 12/07/16 20:25 Last Admin: 12/07/16 10:36 Dose: 100 mls/hr Sodium Chloride (Sodium Chloride 0.9%) 1,000 mls @ 40 mls/hr IV .Q24H [facility] Last Admin: 12/07/16 09:57 Dose: 40 mls/hr Potassium Chloride (Potassium Chloride 20 Meq/100 Ml) 100 mls @ 50 mls/hr IVPB ONCE ONE Stop: 12/07/16 16:48 Metoprolol Tartrate (Lopressor) 2.5 mg IV Q12H [facility] Last Admin: 12/07/16 10:34 Dose: Not Given Ondansetron HCl (Zofran Inj) 4 mg IVP Q4H PRN PRN Reason: Nausea/Vomiting Last Admin: 12/05/16 23:17 Dose: 4 mg - Labs Labs: 12/07/16 13:40 12/07/16 09:10 PT 11.9 Seconds (9.9-11.8) H 12/07/16 09:10 INR 1.10 (0.93-1.08) H 12/07/16 09:10 APTT 21.3 Seconds (23.7-30.8) L 12/07/16 09:10 Attending/Attestation - Attestation I have personally seen and examined this patient.: Yes I have fully participated in the care of the patient.: Yes I have reviewed all pertinent clinical information, including history, physical exam and plan: Yes Notes (Text): Patient was seen and examined with anesthesiology medical doctor .Agreed with resident assessment and plan. 71 yo F with PMHx of diverticulosis, recurrent lower GI bleed, and breast cancer presenting with lower GI bleeding, required 11 unit of PRBC, underwent s/p LT hemicolectomy, End colostomy today, on Resp support, we will continue monitor hemoglobin and hematocrit.General surgery , GI and surgery are following.
[2016-12-07] MEDS ORDERED: Potassium Chloride 20 mEq 100 ML IVPB ONE (14:49)
--- NOTE | 2016-12-07 14:50 | RAD ---
HISTORY: s/p central line COMPARISON: No prior. FINDINGS: LUNGS: No active pulmonary disease. PLEURA: No significant pleural effusion identified, no pneumothorax apparent. CARDIOVASCULAR: Moderate cardiomegaly OSSEOUS STRUCTURES: No significant abnormalities. VISUALIZED UPPER ABDOMEN: Normal. OTHER FINDINGS: Endotracheal tube in satisfactory position. Nasogastric tube is at the level of the diaphragm probably above the GE junction. The right-sided internal jugular line is suboptimally positioned. The catheter is directed superiorly towards the neck IMPRESSION: Suboptimal position of right internal jugular line which is directed superiorly towards the neck. Suboptimal position of nasogastric tube
[2016-12-07 15:24] LABS: VENOUS BLOOD GAS BASE EXCESS 0.3 mmol/L (0.0-2.0); VENOUS BLOOD PH 7.39 (7.32-7.43)
[2016-12-07 16:10] LABS: HEMATOCRIT 26.2 % (36.0-48.0)
[2016-12-07 21:19] LABS: ARTERIAL BLOOD GAS HCO3 23.1 mmol/L (21-28); ARTERIAL BLOOD GAS O2 CONTENT 11.8 ML/dl (15-23); ARTERIAL BLOOD GAS PH 7.44 (7.35-7.45); ARTERIAL BLOOD HGB O2 SAT 95.6 % (95.0-98.0); CARBOXYHEMOGLOBIN 1.7 % (0.5-1.5); HHB 1.4 % (0-5); METHEMOGLOBIN 1.2 % (0.0-3.0)
[2016-12-07] MEDS: Sodium Chloride 0.9% 1,000 ML IV SCH (22:45)
--- NOTE | 2016-12-07 22:48 | PN ---
DATE: 12/07/2016 This patient was seen and evaluated earlier. Discussed with the patient's daughter, and also with vikram manufacturing area manager at length. The case was also reviewed with the IC resident. Previous day events notes reviewed. This patient is status post extended left hemicolectomy, Chance's procedure. On vent. Afebrile, blood pressure 127/62, pulse 101. HENT: Atraumatic. Anicteric. NECK: Supple. HEART: S1, S2 heard. LUNGS: Bilateral air entry present. ABDOMEN: Soft. Colostomy present on the left side, and there was free air in the colostomy present. EXTREMITIES: Pneumatic compressions noticed. LABORATORY VALUES: The patient's hemoglobin in the morning was 11.3. It dropped down to 19.0. The repeat one remained stable. WBC is 13.1, platelets 115. Chemistry showed calcium was 6.1, albumin 1.7, potassium 3.2, being replaced. IMPRESSION: This 71-year-old patient with a massive lower gastrointestinal bleeding secondary to div erticulosis, had status post extended left hemicolectomy done. Colostomy: There is some air in the colostomy. There is no blood. There is some drop in blood count, but subsequently remains stable. PLAN: Close monitoring of the hemoglobin and hematocrit. We can discontinue the Protonix drip and c hange it to IV Protonix because endoscopy showed no upper GI source of blood loss. Will continue to closely follow the patient and suggest further recommendations based on the clinical course. Kain Kam MD cc: [id number] TT: 12/07/2016 22:47:09 Confirmation # [id number] Dictation # [id number] james
[2016-12-07] MEDS: Potassium Chloride 20 mEq 100 ML IVPB SCH (23:15)
[2016-12-08] MEDS: HYDROmorphone 1 mg/ml ISec IVP PRN ×4 (00:01→15:37)
[2016-12-08 00:20] LABS: HEMATOCRIT 26.1 % (36.0-48.0)
--- NOTE | 2016-12-08 00:57 | CP.PCM.PN ---
<Casey Marx - Last Filed: 12/08/16 01:01> Subjective - Date & Time of Evaluation Date of Evaluation: 12/08/16 Time of Evaluation: 00:53 - Subjective Subjective: SURGERY PROGRESS NOTE FOR DR. OSUNA 71F seen and examined at bedside. Patient currently intubated and sedated on propofol. Vitals stable. Objective - Vital Signs/Intake and Output Vital Signs (last 24 hours): Temp Pulse Resp BP Pulse Ox 99.7 F H 120 H 15 142/68 98 12/08/16 00:00 12/08/16 00:00 12/07/16 09:39 12/08/16 00:00 12/08/16 00:00 Intake and Output: 12/07/16 12/08/16 18:59 06:59 Intake Total 2602 498 Output Total 1315 364 Balance 1287 134 - Medications Medications: Current Medications Acetaminophen (Tylenol 325mg Tab) 650 mg PO Q4H PRN PRN Reason: Pain, moderate (4-7) Last Admin: 12/04/16 05:51 Dose: 650 mg Atorvastatin Calcium (Lipitor) 20 mg PO DIN [facility] Last Admin: 12/07/16 16:52 Dose: 20 mg Hydromorphone HCl (Dilaudid) 1 mg IVP Q4H PRN PRN Reason: Pain, moderate (4-7) Last Admin: 12/08/16 00:01 Dose: 1 mg Propofol (Diprivan) 100 mls @ 22.657 mls/hr IV .Q4H25M PRN; Protocol; 50 MCG/KG /MIN PRN Reason: TITRATE PER MD ORDER Last Titration: 12/08/16 00:50 Dose: 50 mcg/kg/min Sodium Chloride (Sodium Chloride 0.9%) 1,000 mls @ 75 mls/hr IV .[id number] [facility] Potassium Chloride (Potassium Chloride 20 Meq/100 Ml) 100 mls @ 50 mls/hr IVPB Q2H [facility] Stop: 12/08/16 03:14 Last Admin: 12/07/16 23:15 Dose: 50 mls/hr Metoprolol Tartrate (Lopressor) 2.5 mg IV Q12H [facility] Last Admin: 12/07/16 20:56 Dose: Not Given Ondansetron HCl (Zofran Inj) 4 mg IVP Q4H PRN PRN Reason: Nausea/Vomiting Last Admin: 12/05/16 23:17 Dose: 4 mg Pantoprazole Sodium (Protonix Inj) 40 mg IVP DAILY [facility] - Labs Labs: 12/08/16 00:08 12/07/16 22:30 PT 11.9 Seconds (9.9-11.8) H 12/07/16 09:10 INR 1.10 (0.93-1.08) H 12/07/16 09:10 APTT 21.3 Seconds (23.7-30.8) L 12/07/16 09:10 - Constitutional Appears: Non-toxic, No Acute Distress, Other (intubated and sedated) - Head Exam Head Exam: ATRAUMATIC - Eye Exam Eye Exam: EOMI, PERRL - Neck Exam Additional comments: TLC dressing CDI - Respiratory Exam Respiratory Exam: Clear to Ausculation Bilateral, NORMAL BREATHING PATTERN Additional comments: intubated and sedated, 50%02 PEEP7 - Cardiovascular Exam Cardiovascular Exam: REGULAR RHYTHM, +S1, +S2 - GI/Abdominal Exam GI & Abdominal Exam: Soft. absent: Distended, Firm, Guarding, Rigid, Rebound Additional comments: Midline dressing clean dry intact. Ostomy output is scant. SONU drain output is serosang 320cc since operation. - Extremities Exam Additional comments: AE hose stockings are on - Neurological Exam Additional comments: sedated on propofol - Skin Skin Exam: Dry, Intact, Normal Color, Warm Assessment and Plan - Assessment and Plan (Free Text) Assessment: 71F presents with Lower GI bleed, s/p Left bartolome colectomy/end colostomy POD#1 Plan: - Monitor vitals - strict hourly Is/Os - Q4 H&H - Monitor ostomy/ronny output - Vent management - GI/DVT ppx Further recs discuss with Dr. Thao Marx, PGY1 <Cirilo Osuna - Last Filed: 12/08/16 22:04> Subjective - Date & Time of Evaluation Date of Evaluation: 12/07/16 Time of Evaluation: 22:10 Objective - Vital Signs/Intake and Output Vital Signs (last 24 hours): Temp Pulse Resp BP Pulse Ox 101 F H 121 H 16 109/62 97 12/08/16 20:00 12/08/16 20:09 12/08/16 20:09 12/08/16 20:09 12/08/16 20:09 Intake and Output: 12/08/16 12/09/16 18:59 06:59 Intake Total 1305 Output Total 2130 150 Balance -825 -150 - Medications Medications: Current Medications Acetaminophen (Tylenol 325mg Tab) 650 mg PO Q4H PRN PRN Reason: Pain, moderate (4-7) Last Admin: 12/04/16 05:51 Dose: 650 mg Atorvastatin Calcium (Lipitor) 20 mg PO DIN [facility] Last Admin: 12/08/16 17:11 Dose: Not Given Hydromorphone HCl (Dilaudid) 1 mg IVP Q3H PRN PRN Reason: Pain, moderate (4-7) Hydromorphone HCl (Dilaudid) 2 mg IVP Q4H PRN PRN Reason: Pain, severe (8-10) Cefoxitin Sodium 1 gm/ Sodium (Chloride) 100 mls @ 100 mls/hr IV Q8H [facility] PRN Reason: Protocol Last Admin: 12/08/16 15:39 Dose: 100 mls/hr Metronidazole (Flagyl) 100 mls @ 100 mls/hr IVPB Q8 [facility] PRN Reason: Protocol Last Admin: 12/08/16 13:35 Dose: 100 mls/hr Sodium Chloride (Sodium Chloride 0.9%) 1,000 mls @ 75 mls/hr IV .[id number] [facility] Acetaminophen (Ofirmev) 100 mls @ 400 mls/hr IVPB Q6H PRN PRN Reason: Fever >100.3 F Stop: 12/10/16 20:04 Last Admin: 12/08/16 20:15 Dose: 400 mls/hr Metoprolol Tartrate (Lopressor) 2.5 mg IV Q12H [facility] Last Admin: 12/08/16 20:09 Dose: 2.5 mg Ondansetron HCl (Zofran Inj) 4 mg IVP Q4H PRN PRN Reason: Nausea/Vomiting Last Admin: 12/05/16 23:17 Dose: 4 mg Pantoprazole Sodium (Protonix Inj) 40 mg IVP DAILY [facility] Last Admin: 12/08/16 10:26 Dose: 40 mg Vitamin A (Vitamin A & D Oint Ud Foilpak) 1 ea TOP Q6 [facility] Last Admin: 12/08/16 17:36 Dose: Not Given - Labs Labs: 12/08/16 17:35 12/08/16 18:45 PT 11.5 Seconds (9.9-11.8) 12/08/16 04:30 INR 1.06 (0.93-1.08) 12/08/16 04:30 APTT 25.3 Seconds (23.7-30.8) 12/08/16 04:30 Assessment and Plan - Assessment and Plan (Free Text) Assessment: Patient was seen and examined by me. I agree with assessment and plan as per resident's note.
[2016-12-08] MEDS: Potassium Chloride 20 mEq 100 ML IVPB SCH (01:22)
[2016-12-08 04:42] LABS: ADD MANUAL DIFF? NO
[2016-12-08 04:54] LABS: BLOOD UREA NITROGEN 8 mg/dL (7-21); GFR AFRICAN-AMERICAN > 60; GLUCOSE,RANDOM 105 mg/dL (70-110)
[2016-12-08 04:55] LABS: ALB/GLOB RATIO 0.9 (1.1-1.8); ALKALINE PHOSPHATASE 41 U/L (38-133); ALT/SGPT 36 U/L (7-56); AST/SGOT 19 U/L (15-39); BILIRUBIN,TOTAL 0.9 mg/dL (0.2-1.3); CALCIUM 7.4 mg/dL (8.4-10.5); CARBON DIOXIDE 28 mmol/L (21-33); CHLORIDE 107 mmol/L (98-107); MAGNESIUM 1.9 mg/dL (1.7-2.2); SODIUM 137 mmol/L (132-148); TOTAL PROTEIN 4.8 g/dL (5.8-8.3)
[2016-12-08 04:55] LABS: ARTERIAL BLOOD GAS HCO3 23.1 mmol/L (21-28); ARTERIAL BLOOD GAS O2 CAPACITY 12.2 mL/dl (16-24); ARTERIAL BLOOD GAS O2 CONTENT 12.1 ML/dl (15-23); ARTERIAL BLOOD GAS PH 7.44 (7.35-7.45); ARTERIAL BLOOD HGB O2 SAT 96.5 % (95.0-98.0); CARBOXYHEMOGLOBIN 1.4 % (0.5-1.5)
[2016-12-08 05:33] LABS: BASO # 0.02 K/mm3 (0.0-2.0); BASO % 0.2 % (0.0-3.0); EOS % 0.3 % (1.5-5.0); GRAN # 9.88 (1.4-6.5); GRAN % 84.5 % (50.0-68.0); LYMPH % 8.3 % (22.0-35.0); MEAN CELL VOLUME 86.1 fL (80.0-105.0); MEAN CORPUSCULAR HEMOGLOBIN 30.1 pg (25.0-35.0); MONO # 0.8 (0.1-0.6); MONO % 6.7 % (1.0-6.0); PLATELET COUNT 134 10^3/uL (120.0-450.0); RED CELL DISTRIBUTION WIDTH 15.7 % (11.5-14.5); WHITE BLOOD COUNT 11.7 10^3/ul (4.5-11.0)
[2016-12-08 05:39] LABS: INR 1.06 (0.93-1.08); PARTIAL THROMBOPLASTIN TIME 25.3 Seconds (23.7-30.8)
[2016-12-08] MEDS: metroNIDAZOLE IV 500 mg/100 ml 100 ML IVPB SCH ×3 (07:13→22:06)
--- NOTE | 2016-12-08 08:11 | PN ---
DATE: 12/08/2016 SUBJECTIVE: The patient is seen lying in bed in the CCU. She remains intubated and somewhat somnole nt but awake. She nods her head to questions. CURRENT MEDICATIONS: Include Dilaudid p.r.n., propofol, Lipitor, metoprolol 2.5 mg q. 12 hours, Prot kash. OBJECTIVE: GENERAL: She is a middle-aged woman who appears comfortable at rest. VITAL SIGNS: Her blood pressure is 114/62 with a pulse of 96 and sinus. Respirations are 16. She i s afebrile. HEENT: She is orally intubated. NECK: No JVD. CHEST: Bilateral scattered rhonchi. HEART: PMI displaced laterally with a systolic murmur at the apex. ABDOMEN: Soft, distended. Bowel sounds are absent. Surgical dressing is clean and dry. EXTREMITIES: No edema. DIAGNOSTIC DATA: White count 11.7, hemoglobin and hematocrit 9.1 and 26.0, the platelet count 134,00 0. Arterial blood gas shows pH 7.44, pCO2 of 34, pO2 of 103 on 50% FiO2 with #5 of PEEP. Intake/out put 4000/2980. IMPRESSION: 1. Status post emergent hemicolectomy with colostomy, hemodynamically stable at present. 2. Ventilatory support, clinically improved. 3. History of chronic severe mitral regurgitation. 4. Mild to moderate left ventricular systolic dysfunction. RECOMMENDATIONS: Maintenance of hemoglobin greater than 9 is advised. Attempts at ventilator weani ng today should be planned. GI and DVT prophylaxis should continue. Avoidance of excessive volume i nfusion is advisable given her LV dysfunction and mitral regurgitation. We will continue to follow a long and make further recommendations as appropriate. Efraín Quintero MD cc: [id number] TT: 12/08/2016 08:11:13 Confirmation # [id number] Dictation # [id number] [id number]
[2016-12-08] MEDS: cefOXitin Sodium 1 GM in Sodium Chloride 0.9% 100 ML IV SCH ×3 (08:30→22:06)
--- NOTE | 2016-12-08 08:46 | PN ---
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 She had a comfortable night, and we will continue to decrease the FiO2 as tolerated. She still has some drainage from the colost jia. The patient has good urine output, and hemoglobin has been fairly stable overnight. PHYSICAL EXAMINATION: Notes: VITAL SIGNS: Her temperature is 99.7. Pulse is 110. Respirations are 16, and her BP is 112/58. SKIN: Warm and dry. HEAD: Atraumatic, normocephalic. EYES: Reactive to light. EARS, NOSE, AND THROAT: Seem to be within normal limits. NECK: Supple. No JVD, no thyroid enlargement, no lymph nodes. HEART: Has a regular rate and rhythm. Normal S1, S2. LUNGS: Reveal fairly good breath sounds bilaterally. ABDOMEN: Soft, little to no bowel sounds. Colostomy in place. GENITALIA AND RECTAL: Deferred. MUSCULOSKELETAL: No joint deformities. NEUROLOGIC: The patient is sedated on the ventilator. LABORATORY DATA: Her white count is 11.7. Hemoglobin is 9.1, hematocrit 26.0 with platelets of 134, 000. PT is 11.5. INR is 1.06, and PTT is 25.3. Arterial blood gas reveals a pH of 7.44, pCO2 of 34 and pO2 of 103. Sodium is 137, potassium 4.0, chloride 107, CO2 of 28, BUN of 8, creatinine of 0.7, and a glucose of 105. Calcium has improved to 7.4. IMPRESSION: The patient is status post gastrointestinal bleed and continues to have anemia, which is stable at this time. She is status post a hemicolectomy and has a colostomy. The patient has respi ratory insufficiency requiring ventilator support, and a history of diverticulitis. PLAN: We will continue to decrease the FiO2 as tolerated, and we will give vent-weaning trials. The patient is on Diprivan, and we are following the hemoglobin closely. We will continue to follow her chest x-ray and arterial blood gas, and continue with aggressive pulmonary toilet. Alpesh Dempsey MD cc: [id number] TT: 12/08/2016 08:46:10 Confirmation # [id number] Dictation # [id number]
--- NOTE | 2016-12-08 10:11 | RAD ---
HISTORY: R IJ central line placement COMPARISON: 12/07/2016 FINDINGS: LUNGS: No active pulmonary disease. PLEURA: No significant pleural effusion identified, no pneumothorax apparent. CARDIOVASCULAR: Normal. OSSEOUS STRUCTURES: No significant abnormalities. VISUALIZED UPPER ABDOMEN: Normal. OTHER FINDINGS: None. IMPRESSION: The right internal jugular line has been repositioned and is now in satisfactory position within the SVC. No pneumothorax. The nasogastric and endotracheal tubes are in satisfactory position
[2016-12-08] MEDS: Metoprolol 1 mg/ml Inj IV SCH ×2 (10:24→20:09)
[2016-12-08 12:27] LABS: HEMATOCRIT 25.8 % (36.0-48.0)
[2016-12-08] MEDS: Sodium Chloride 0.9% 1,000 ML IV SCH (12:36)
[2016-12-08 12:37] LABS: MAGNESIUM 1.9 mg/dL (1.7-2.2); PHOSPHOROUS 3.3 mg/dL (2.5-4.5)
--- NOTE | 2016-12-08 13:17 | CP.PCM.PN ---
<Andrey Mckeon - Last Filed: 12/09/16 06:04> Subjective - Date & Time of Evaluation Date of Evaluation: 12/08/16 Time of Evaluation: 07:55 - Subjective Subjective: Patient seen and examined at bedside. No acute events overnight. Patient is intubated and sedative. Unable to obtain further ROS. Objective - Vital Signs/Intake and Output Vital Signs (last 24 hours): Temp Pulse Resp BP Pulse Ox 99.7 F H 116 H 19 112/62 98 12/08/16 12:00 12/08/16 13:00 12/08/16 13:00 12/08/16 13:00 12/08/16 13:00 Intake and Output: 12/08/16 12/08/16 06:59 18:59 Intake Total 1113 480 Output Total 657 1770 Balance 456 -1290 - Medications Medications: Current Medications Acetaminophen (Tylenol 325mg Tab) 650 mg PO Q4H PRN PRN Reason: Pain, moderate (4-7) Last Admin: 12/04/16 05:51 Dose: 650 mg Atorvastatin Calcium (Lipitor) 20 mg PO DIN [facility] Last Admin: 12/07/16 16:52 Dose: 20 mg Hydromorphone HCl (Dilaudid) 1 mg IVP Q4H PRN PRN Reason: Pain, moderate (4-7) Last Admin: 12/08/16 10:48 Dose: 1 mg Propofol (Diprivan) 100 mls @ 22.657 mls/hr IV .Q4H25M PRN; Protocol; 50 MCG/KG /MIN PRN Reason: TITRATE PER MD ORDER Last Titration: 12/08/16 10:44 Dose: 0 mcg/kg/min Sodium Chloride (Sodium Chloride 0.9%) 1,000 mls @ 75 mls/hr IV .[id number] [facility] Last Admin: 12/08/16 12:36 Dose: 75 mls/hr Cefoxitin Sodium 1 gm/ Sodium (Chloride) 100 mls @ 100 mls/hr IV Q8H [facility] PRN Reason: Protocol Last Admin: 12/08/16 08:30 Dose: 100 mls/hr Metronidazole (Flagyl) 100 mls @ 100 mls/hr IVPB Q8 [facility] PRN Reason: Protocol Last Admin: 12/08/16 07:13 Dose: 100 mls/hr Metoprolol Tartrate (Lopressor) 2.5 mg IV Q12H [facility] Last Admin: 12/08/16 10:24 Dose: 2.5 mg Ondansetron HCl (Zofran Inj) 4 mg IVP Q4H PRN PRN Reason: Nausea/Vomiting Last Admin: 12/05/16 23:17 Dose: 4 mg Pantoprazole Sodium (Protonix Inj) 40 mg IVP DAILY [facility] Last Admin: 12/08/16 10:26 Dose: 40 mg - Labs Labs: 12/08/16 12:20 12/08/16 04:30 PT 11.5 Seconds (9.9-11.8) 12/08/16 04:30 INR 1.06 (0.93-1.08) 12/08/16 04:30 APTT 25.3 Seconds (23.7-30.8) 12/08/16 04:30 - Constitutional Appears: Non-toxic, No Acute Distress - Head Exam Head Exam: ATRAUMATIC, NORMOCEPHALIC - Eye Exam Eye Exam: Normal appearance Pupil Exam: PERRL - ENT Exam Additional comments: Intubated - Respiratory Exam Respiratory Exam: Clear to Ausculation Bilateral, NORMAL BREATHING PATTERN. absent: Respiratory Distress - Cardiovascular Exam Cardiovascular Exam: REGULAR RHYTHM, +S1, +S2. absent: Murmur - GI/Abdominal Exam GI & Abdominal Exam: Soft. absent: Tenderness Additional comments: Surgical site dressing, ostomy bag, and SONU drain clean, dry, and intact. No signs of infection - Extremities Exam Additional comments: AE hose - Neurological Exam Neurological Exam: absent: Awake (Intubated and sedated), Oriented x3 - Skin Skin Exam: Dry, Intact, Normal Color, Warm Assessment and Plan - Assessment and Plan (Free Text) Assessment: 71 yo F with PMHx of valvular heart disease, GI bleed, and breast cancer presenting with hematochezia. Taken emergently to the OR 12/07/16 early AM. GI bleed/hematochezia s/p LT hemicolectomy, End colostomy day 1 s/p multiple pRBC infusions Hemoglobin 9.1 today at noon monitor for continued bleeding CBC Q6, continue to monitor CT shows diverticulosis, esophagitis, cystic structure 2.2 cm pancreatic neck GI consult. Dr. Kam. recs appreciated Colonoscopy 12/05 showed diverticula throughout colon, small amount of blood in terminal ileum. No active bleeding appreciated (see full report) Surgery following, Dr. Skelton, appreciate recs protonix IVF NS no leukocytosis, pt is afebrile, not in distress NPO FS Q6, maintain euglycemia Hx of HTN Continue metoprolol IV Hx of HLD continue home statin Hx of valvular heart disease cardio consult. Dr. Barber. recs appreciated Monitor I&O PPx protonix AE hose <Barbra HOLLIS,Ewa - Last Filed: 12/16/16 08:08> Objective - Vital Signs/Intake and Output Vital Signs (last 24 hours): Temp Pulse Resp BP Pulse Ox 98.2 F 84 20 100/65 95 12/16/16 06:00 12/16/16 06:00 12/16/16 06:00 12/16/16 06:00 12/16/16 06:00 Intake and Output: 12/16/16 12/16/16 06:59 18:59 Intake Total 360 Output Total 985 Balance -625 - Medications Medications: Current Medications Acetaminophen (Tylenol 325mg Tab) 650 mg PO Q4H PRN PRN Reason: Pain, moderate (4-7) Last Admin: 12/04/16 05:51 Dose: 650 mg Acetaminophen (Tylenol 650 Mg Supp) 650 mg RC Q4H PRN PRN Reason: Fever >100.4 F Alprazolam (Xanax) 0.25 mg PO Q6 PRN; Protocol PRN Reason: Anxiety Stop: 12/21/16 18:01 Atorvastatin Calcium (Lipitor) 20 mg PO DIN [facility] Last Admin: 12/15/16 17:02 Dose: Not Given Benzocaine/Menthol (Cepacol Sore Throat) 1 leo MT Q2H PRN PRN Reason: Sore Throat Last Admin: 12/09/16 20:24 Dose: 1 leo Carvedilol (Coreg) 3.125 mg PO BID [facility] Last Admin: 12/15/16 17:02 Dose: Not Given Ketorolac Tromethamine (Toradol) 30 mg IM Q8H PRN PRN Reason: Pain, moderate (4-7) Ondansetron HCl (Zofran Odt) 4 mg PO Q8H PRN PRN Reason: Nausea/Vomiting Pantoprazole Sodium (Protonix Ec Tab) 40 mg PO ACB [facility] Potassium Chloride (K-Dur 20 Meq Er Tab) 20 meq PO BID [facility] Last Admin: 12/15/16 17:06 Dose: 20 meq Tramadol HCl (Ultram) 50 mg PO TID PRN PRN Reason: Pain, severe (8-10) Last Admin: 12/15/16 18:59 Dose: 50 mg Vitamin A (Vitamin A & D Oint Ud Foilpak) 1 ea TOP Q6 [facility] Last Admin: 12/16/16 06:55 Dose: Not Given - Labs Labs: 12/16/16 06:30 12/16/16 06:30 PT 10.6 Seconds (9.9-11.8) 12/11/16 15:20 INR 0.98 (0.93-1.08) 12/11/16 15:20 APTT 23.8 Seconds (23.7-30.8) 12/11/16 15:20 Attending/Attestation - Attestation I have personally seen and examined this patient.: Yes I have fully participated in the care of the patient.: Yes I have reviewed all pertinent clinical information, including history, physical exam and plan: Yes Notes (Text): Patient was seen and examined with medical i d sales .Agreed with resident assessment and plan. 71 F with PMH of Diverticulosis was admitted with lower GI bleeding , required 11 units of PRBC, underwent left Hemicolectomy yesterday by Surgery, still intubated after surgery, hemoglobin is stable after surgery., we will continue monitoring.Blood pressure is stable at this time.
--- NOTE | 2016-12-08 14:31 | PCM.PROC ---
<Jarvis Nazarioy - Last Filed: 12/08/16 14:25> Procedures Attestation:: I certify that I have explained the specified Operation(s) or Procedure(s), risks, benefits and reasonable alternatives to the Patient and/or other person responsible. The opportunity was given to ask questions and all questions answered - Central Line Placement Right Internal Jugular Triple Lumen Catheter Aseptic technique was employed throughout the procedure: Hand Hygiene done prior to procedure, Full sterile barriers (mask, hair cover, sterile gown, sterile gloves), Full body sterile drape, Chloraprep Antiseptic: 30 second prep for IJ or SC sites CVP Time Out Performed: Yes Pt. Placed on Pulse Ox Monitor: Yes Central Line Prep: Chlorhexidine-Alcohol Combination Local Anesthesia Used: Lidocaine 1% Ultrasound Used for Placement: Yes Central Line Lumen Inserted: triple Central Line Length: 16 cm Post Procedure: Sutured in Place, Good Blood Return, All Ports Aspirated, Flushed, Capped, Sterile Dressing Applied Secured by: Suture Post procedure dressing: Gauze, Clear vapor permeable, Chlorhexidine disc ( Biopatch) Post Procedure X-Ray: Yes Patient Tolerated Procedure: Well, No Complications Immediate Complications: None Additional Comments: Previous RIJ triple lumen catheter removed d/t improper placement. This was performed just prior to placing new RIJ catheter through a different insertion site. Pressure was held over the primary insertion site after removal, patient tolerated well, no active bleeding was observed. <Cirilo Osuna - Last Filed: 12/08/16 22:09> Assessment and Plan - Assessment and Plan (Free Text) Assessment: Patient was seen and examined by me. I agree with assessment and plan as per resident's note.The procedure was performed by me with direct resident' s involvement. Postprocedure chest x-ray revealed no evidence of pneumothorax and appropriate placement of the catheter
[2016-12-08] MEDS ORDERED: Sodium Chloride 0.9% 1,000 ML IV SCH ×2 (17:30→17:45)
[2016-12-08] MEDS: Vitamins A & D Oint UD Foilpak TOP SCH (17:36)
[2016-12-08 17:48] LABS: HEMATOCRIT 24.6 % (36.0-48.0)
[2016-12-08] MEDS ORDERED: Sodium Chloride 0.9% 1,000 ML IV ONE (17:59)
[2016-12-08 19:26] LABS: ALB/GLOB RATIO 0.8 (1.1-1.8); ALKALINE PHOSPHATASE 46 U/L (38-133); ALT/SGPT 36 U/L (7-56); AST/SGOT 17 U/L (15-39); BLOOD UREA NITROGEN 7 mg/dL (7-21); CALCIUM 7.5 mg/dL (8.4-10.5); CARBON DIOXIDE 28 mmol/L (21-33); CHLORIDE 104 mmol/L (98-107); GFR AFRICAN-AMERICAN > 60; GLUCOSE,RANDOM 90 mg/dL (70-110); POTASSIUM 3.6 mmol/L (3.6-5.0); SODIUM 136 mmol/L (132-148); TOTAL PROTEIN 4.7 g/dL (5.8-8.3)
[2016-12-08 19:35] LABS: HEMATOCRIT 24.7 % (36.0-48.0); MEAN CELL VOLUME 87.9 fL (80.0-105.0); MEAN CORPUSCULAR HEMOGLOBIN 30.2 pg (25.0-35.0); MEAN CORPUSCULAR HGB CONC 34.4 g/dl (31.0-37.0); MEAN PLATELET VOLUME 11.1 fl (7.0-11.0); RED CELL DISTRIBUTION WIDTH 16.1 % (11.5-14.5); WHITE BLOOD COUNT 11.2 10^3/ul (4.5-11.0)
[2016-12-08] MEDS ORDERED: HYDROmorphone 2 mg/ml ISec IVP PRN (19:37)
[2016-12-08 22:17] LABS: ADD MANUAL DIFF? NO; BASO # 0.03 K/mm3 (0.0-2.0); BASO % 0.3 % (0.0-3.0); EOS # 0.1 (0.0-0.7); EOS % 0.9 % (1.5-5.0); GRAN # 9.16 (1.4-6.5); GRAN % 84.3 % (50.0-68.0); LYMPH # 0.8 (1.2-3.4); LYMPH % 7.7 % (22.0-35.0); MEAN CELL VOLUME 87.8 fL (80.0-105.0); MEAN CORPUSCULAR HGB CONC 34.2 g/dl (31.0-37.0); MEAN PLATELET VOLUME 10.2 fl (7.0-11.0); MONO # 0.7 (0.1-0.6); MONO % 6.8 % (1.0-6.0); PLATELET COUNT 136 10^3/uL (120.0-450.0); RED CELL DISTRIBUTION WIDTH 16.1 % (11.5-14.5); WHITE BLOOD COUNT 10.9 10^3/ul (4.5-11.0)
[2016-12-08 22:18] LABS: HEMATOCRIT 23.1 % (36.0-48.0)
--- NOTE | 2016-12-08 23:16 | PCM.PROC ---
Procedures Attestation:: I certify that I have explained the specified Operation(s) or Procedure(s), risks, benefits and reasonable alternatives to the Patient and/or other person responsible. The opportunity was given to ask questions and all questions answered - Central Line Placement Right Internal Jugular Triple Lumen Catheter Aseptic technique was employed throughout the procedure: Full sterile barriers ( mask, hair cover, sterile gown, sterile gloves), Chloraprep Antiseptic: 30 second prep for IJ or SC sites CVP Time Out Performed: Yes Pt. Placed on Pulse Ox Monitor: Yes Central Line Prep: Chlorhexidine-Alcohol Combination Local Anesthesia Used: Lidocaine 1% Amount of Anesthesia Used (mls): 10 Ultrasound Used for Placement: Yes Central Line Lumen Inserted: triple Central Line Length: 20 cm Post Procedure: Sutured in Place, Good Blood Return, All Ports Aspirated, Flushed, Capped, Sterile Dressing Applied Secured by: Suture Post procedure dressing: Gauze, Clear vapor permeable, Chlorhexidine disc ( Biopatch) Post Procedure X-Ray: Yes Patient Tolerated Procedure: Well Immediate Complications: Catheter Malposition Additional Comments: Supervised by Attending.
[2016-12-09 00:25] LABS: ADD MANUAL DIFF? NO
[2016-12-09 00:33] LABS: BASO # 0.02 K/mm3 (0.0-2.0); BASO % 0.2 % (0.0-3.0); EOS # 0.1 (0.0-0.7); EOS % 1.1 % (1.5-5.0); GRAN # 9.33 (1.4-6.5); GRAN % 84.2 % (50.0-68.0); LYMPH % 8.6 % (22.0-35.0); MEAN CELL VOLUME 88.2 fL (80.0-105.0); MEAN CORPUSCULAR HEMOGLOBIN 30.1 pg (25.0-35.0); MEAN CORPUSCULAR HGB CONC 34.1 g/dl (31.0-37.0); MEAN PLATELET VOLUME 10.3 fl (7.0-11.0); MONO # 0.7 (0.1-0.6); MONO % 5.9 % (1.0-6.0); PLATELET COUNT 130 10^3/uL (120.0-450.0); RED CELL DISTRIBUTION WIDTH 15.9 % (11.5-14.5); WHITE BLOOD COUNT 11.1 10^3/ul (4.5-11.0)
[2016-12-09 00:43] LABS: INR 1.06 (0.93-1.08); PARTIAL THROMBOPLASTIN TIME 28.2 Seconds (23.7-30.8)
[2016-12-09] MEDS: HYDROmorphone 1 mg/ml ISec IVP PRN ×4 (00:52→20:25)
[2016-12-09 00:54] LABS: TROPONIN I 0.08 ng/mL
[2016-12-09] MEDS ORDERED: Sodium Chloride 0.9% 1,000 ML IV SCH (01:30)
--- NOTE | 2016-12-09 02:09 | OP ---
PROCEDURE DATE: 12/07/2016 PREOPERATIVE DIAGNOSIS: Acute anemia, diverticulosis. POSTOPERATIVE DIAGNOSIS: Acute anemia, diverticulosis. PROCEDURE PERFORMED: 1. Rigid proctosigmoidoscopy for rectal bleeding and evaluation of the rectum. 2. Left hemicolectomy with colostomy (Chance's procedure). 3. Splenic flexure mobilization. 4. Intraoperative colonic lavage. 5. Partial omentectomy. SURGEON: Dr. Osuna. SOLE CONDITIONER: Dr. Calderon. ANESTHESIOLOGIST: Dr. Allen. ANESTHESIA: General endotracheal anesthesia. ESTIMATED BLOOD LOSS: Minimal. DRAINS: One Robert drain was placed into the pelvis at the end of this procedure. INDICATION: The patient is a 71-year-old female, who was admitted with lower gastrointestinal bleedi ng with clots of blood through the rectum. The patient was treated initially conservatively; however , bleeding persisted. Colonoscopy was done showing no evidence of bleeding at the time. The patient had a previous bleeding scan which showed evidence of bleeding in the lower pelvis, slightly off of the midline to the left, suspected to be a sigmoid colon bleed. The patient had been aggressively re suscitated; however, due to the persistent bleeding, the decision made to proceed to the operating ro om. DESCRIPTION OF PROCEDURE: The patient was brought to the operating room and placed on the operating table in the supine position. The patient was connected to EKG, blood pressure, and pulse oximeter m onitors. The patient then underwent general endotracheal anesthesia, was prepped and draped in the u sual sterile fashion. First, a time-out procedure took place and everybody in the room agreed as to the patient's identity, diagnosis, and procedure being performed. Using a #15 blade, an incision was made in the midline and carried through subcutaneous fat and down to the fascia. Once the fascia was incised, access to the abdominal cavity was obtained. The incisi on was extended from the symphysis pubis to the mid epigastrium. Careful evaluation revealed the pre sence of omental adhesions to the anterior abdominal wall. Once these were taken down, I was then ab le to proceed with evaluation of the colon. Starting of the rectum, the sigmoid colon was carefully evaluated. There was some thickening of the sigmoid colon at midportion with visible intraluminal bl ood. There were huge diverticula throughout the colon, all the way up to the cecum. The cecum was s lightly distended, also showing suspected presence of some blood within it. I then proceeded with mo bilization of the left colon. The sigmoid colon was also from the lateral pelvic adhesions and elevated. The rectosigmoid junction was then carefully dissected out and a contour stapler was used in order to transect that rectum and staple it. Once this was done, I then proceeded with using Harmonic scalpel in order to dissect the colon off its mesentery. I proceeded further up to descend ing colon where my next move was to elevate the entire left colon and mobilize the splenic flexure. Once this was performed, I then proceeded with transection of the mesentery of that portion of the co melodie, and once freely mobilized, I then proceeded with transecting the transverse colon, just proximal to the splenic flexure. Once this was done, the descending colon and the sigmoid colon were removed and open on the table. It appeared that there were large amounts of heavy clot within every single one of those diverticula. I then proceeded with intraoperative lavage of the remaining portion of th e colon, as my suspicion was that the bleeding was strictly from the sigmoid colon. This was done wi th multiple liters of saline, and once the dark, bloody fluid was cleared from that portion of the re ctum, I was seeing no evidence of any active bleeding. The palpation of the remaining colon also re vealed no masses. Once this was completed, I then proceeded to mobilization of some of the transvers e colon in order to gain adequate length for creation of the colostomy. In the process, a portion of the omentum appeared to be ischemic and was resected and sent as a specimen. Once this was done, th e opening for the colostomy was made in the rectus muscle area and extended to a 2-finger size. Once this was done, the transverse colon was brought up through that opening and the colon was fixed with 3-0 silk stitches to the fascia underneath it. Then, at this point I also placed a Robert drain into the pelvis and sutured to the skin in the right lower quadrant. Next, I proceeded with copious irrigation of the abdominal cavity with antibiotic-containing solution. Once multiple liters of we re done, all the irrigant fluid was suctioned out. Careful evaluation for any bleeding was done and no evidence of bleeding was noted. I then proceeded with closure of the abdominal cavity using a #1 PDS in a running fashion. The subcutaneous tissues are reapproximated with interrupted 3-0 Vicryls a nd skin was closed using surgical nicko. The colostomy was now matured using 3-0 silk stitches to attach it to the skin edges, and a colostomy appliance was attached at the colostomy site. In additi on, prior to starting the procedure, the patient underwent a rigid proctosigmoidoscopy, and I was abl e to visualize clearly the rectum and distal sigmoid colon up to 20 cm. An attempt with the flexible colonoscope was made to proceed higher up; however, I was unable to pass the scope and, therefore, t erminated that portion of the procedure. Now, the wounds were covered with sterile dressing. The tapan spencer was left intubated and sent to the recovery room for further observation. Cirilo Osuna MD cc: [id number] TT: 12/09/2016 02:08:57 tn
--- NOTE | 2016-12-09 05:05 | PN ---
DATE: 12/08/2016 SUBJECTIVE: This patient was seen and evaluated earlier, discussed with ICU staff and aircraft log clerk. This patient comfortable and colostomy has been dark brown stool. PHYSICAL EXAMINATION: VITAL SIGNS: The patient remains tachycardic. The patient did have a T-max of 101, blood pressure 9 4/54, O2 sats are 98%, respiration is 18. HEENT: Atraumatic, anicteric. NECK: Supple. HEART: S1, S2 heard. LUNGS: Bilateral air entry present. ABDOMEN: Soft. There is a colostomy with brown stool present. EXTREMITIES: No edema. NEUROLOGIC: Alert, oriented. Moves all the extremities. LABORATORY DATA: WBC is 11.7, hemoglobin 9.1, hematocrit 26, platelet of 134. IMPRESSION: Massive gastrointestinal bleeding lower gastrointestinal bleeding and probably is secondary to diverticulosis, status post extended left hemicolectomy with colostomy. The remains tac hycardic, anxious and also spiked a fever to 101. Followup of the cultures. The patient does have a history of severe mitral regurgitation. RECOMMENDATIONS: The patient did have upper GI endoscopy done which showed no upper GI source of blood loss. The caitlyn ent had most likely the source of bleeding is probably diverticular and appears to be stabilizing. T he patient is also very anxious. The patient continue the antibiotics. Continue the postop as per s preeti. Thank you for allowing us to participate in the care of the patient. Kain Kam MD cc: [phone] TT: 12/09/2016 05:04:26 Confirmation # [id number] Dictation # [id number] quynh
[2016-12-09] MEDS: metroNIDAZOLE IV 500 mg/100 ml 100 ML IVPB SCH ×3 (05:27→22:13)
[2016-12-09 05:29] LABS: ADD MANUAL DIFF? NO
[2016-12-09] MEDS: Vitamins A & D Oint UD Foilpak TOP SCH ×4 (05:38→17:36)
[2016-12-09 05:41] LABS: INR 1.02 (0.93-1.08); PARTIAL THROMBOPLASTIN TIME 27.7 Seconds (23.7-30.8)
[2016-12-09 05:42] LABS: BASO # 0.02 K/mm3 (0.0-2.0); BASO % 0.2 % (0.0-3.0); EOS # 0.1 (0.0-0.7); EOS % 1.2 % (1.5-5.0); GRAN # 9.24 (1.4-6.5); GRAN % 83.5 % (50.0-68.0); HEMATOCRIT 27.1 % (36.0-48.0); MEAN CELL VOLUME 90.3 fL (80.0-105.0); MEAN CORPUSCULAR HEMOGLOBIN 29.3 pg (25.0-35.0); MEAN CORPUSCULAR HGB CONC 32.5 g/dl (31.0-37.0); MEAN PLATELET VOLUME 10.6 fl (7.0-11.0); MONO # 0.7 (0.1-0.6); MONO % 6.1 % (1.0-6.0); PLATELET COUNT 130 10^3/uL (120.0-450.0); RED CELL DISTRIBUTION WIDTH 16.1 % (11.5-14.5); WHITE BLOOD COUNT 11.1 10^3/ul (4.5-11.0)
[2016-12-09 05:43] LABS: ALB/GLOB RATIO 0.9 (1.1-1.8); ALKALINE PHOSPHATASE 50 U/L (38-133); ALT/SGPT 28 U/L (7-56); AST/SGOT 18 U/L (15-39); BILIRUBIN,TOTAL 0.8 mg/dL (0.2-1.3); BLOOD UREA NITROGEN 6 mg/dL (7-21); CALCIUM 7.5 mg/dL (8.4-10.5); CARBON DIOXIDE 28 mmol/L (21-33); CHLORIDE 103 mmol/L (95-110); GFR AFRICAN-AMERICAN > 60; GLUCOSE,RANDOM 82 mg/dL (70-110); POTASSIUM 3.5 mmol/L (3.6-5.0); SODIUM 137 mmol/L (132-148); TOTAL PROTEIN 4.6 g/dL (5.8-8.3)
[2016-12-09] MEDS: cefOXitin Sodium 1 GM in Sodium Chloride 0.9% 100 ML IV SCH ×3 (06:20→22:14)
--- NOTE | 2016-12-09 08:06 | CP.PCM.PN ---
Subjective - Date & Time of Evaluation Date of Evaluation: 12/09/16 Time of Evaluation: 08:00 - Subjective Subjective: Events from w/e noted. Extubated yesterday. Tranfused. No CP or SOB. V/S noted. RSR/S. tachy PE: Lungs: rhonchi Cor.: S1S2, sys murmur Abd.: soft. Colostomy. Ext.: no edema Neuro.: alert I/O= 3715/1972 Labs noted: H/H=8.8/27.1, K+= 3.5 CXR 12/08: noted ECG 12/08 noted: S.Tachy., LAHB, STTW changes, No change except faster rate. Objective - Vital Signs/Intake and Output Vital Signs (last 24 hours): Temp Pulse Resp BP Pulse Ox 98.6 F 105 H 10 L 95/50 L 100 12/09/16 07:41 12/09/16 07:00 12/09/16 07:00 12/09/16 07:00 12/09/16 07:00 Intake and Output: 12/09/16 12/09/16 06:59 18:59 Intake Total 1175 Output Total 2930 Balance -1755 - Medications Medications: Current Medications Acetaminophen (Tylenol 325mg Tab) 650 mg PO Q4H PRN PRN Reason: Pain, moderate (4-7) Last Admin: 12/04/16 05:51 Dose: 650 mg Atorvastatin Calcium (Lipitor) 20 mg PO DIN [facility] Last Admin: 12/08/16 17:11 Dose: Not Given Hydromorphone HCl (Dilaudid) 1 mg IVP Q3H PRN PRN Reason: Pain, moderate (4-7) Last Admin: 12/09/16 06:06 Dose: 1 mg Hydromorphone HCl (Dilaudid) 2 mg IVP Q4H PRN PRN Reason: Pain, severe (8-10) Cefoxitin Sodium 1 gm/ Sodium (Chloride) 100 mls @ 100 mls/hr IV Q8H [facility] PRN Reason: Protocol Last Admin: 12/09/16 06:20 Dose: 100 mls/hr Metronidazole (Flagyl) 100 mls @ 100 mls/hr IVPB Q8 [facility] PRN Reason: Protocol Last Admin: 12/09/16 05:27 Dose: 100 mls/hr Sodium Chloride (Sodium Chloride 0.9%) 1,000 mls @ 75 mls/hr IV .[id number] [facility] Last Admin: 12/09/16 01:20 Dose: 75 mls/hr Acetaminophen (Ofirmev) 100 mls @ 400 mls/hr IVPB Q6H PRN PRN Reason: Fever >100.3 F Stop: 12/10/16 20:04 Last Admin: 12/08/16 20:15 Dose: 400 mls/hr Potassium Chloride (Potassium Chloride 20 Meq/100 Ml) 100 mls @ 50 mls/hr IVPB Q2H [facility] Stop: 12/09/16 11:14 Metoprolol Tartrate (Lopressor) 2.5 mg IV Q12H [facility] Last Admin: 12/08/16 20:09 Dose: 2.5 mg Ondansetron HCl (Zofran Inj) 4 mg IVP Q4H PRN PRN Reason: Nausea/Vomiting Last Admin: 12/05/16 23:17 Dose: 4 mg Pantoprazole Sodium (Protonix Inj) 40 mg IVP DAILY [facility] Last Admin: 12/08/16 10:26 Dose: 40 mg Vitamin A (Vitamin A & D Oint Ud Foilpak) 1 ea TOP Q6 [facility] Last Admin: 12/09/16 05:38 Dose: 1 ea - Labs Labs: 12/09/16 05:00 12/09/16 05:00 PT 11.0 Seconds (9.9-11.8) 12/09/16 05:00 INR 1.02 (0.93-1.08) 12/09/16 05:00 APTT 27.7 Seconds (23.7-30.8) 12/09/16 05:00 Assessment and Plan - Assessment and Plan (Free Text) Plan: Assessment: Active LGI Bleeding from Sigmoid Colon S/P hemicolectomy H/O diverticulosis with remote GIB Severe MR Mild/mod. LVD, possible related to chemo tx. Breast cancer s/p mastectomy and chemo. HLD GERD Plan: Transfuse as needed Replace K+ GI and Surg. F/U Monitor I/O. High Risk for CHF due to sev. MR and mod. LVD IV metoprolol 2.5 Q 12H if BPs OK. Monitor: H/H, labs, I/O, sats., etc. Will follow.
[2016-12-09] MEDS: Potassium Chloride 20 mEq 100 ML IVPB SCH ×2 (08:13→09:27)
[2016-12-09] MEDS: Metoprolol 1 mg/ml Inj IV SCH ×2 (08:30→09:24)
--- NOTE | 2016-12-09 08:39 | CP.PCM.PN ---
<Igor Welsey - Last Filed: 12/09/16 14:33> Subjective - Date & Time of Evaluation Date of Evaluation: 12/09/16 Time of Evaluation: 07:17 - Subjective Subjective: General Surgery Progress Note For Dr. Lynn This 71F was seen and examined this AM at bedside. She reports no acute events overnight. She complains of a sore throat and refused to talk for the majority of the exam. She denies any fever, chills, chest pain, SOB nausea, vomiting diarrhea. Objective - Vital Signs/Intake and Output Vital Signs (last 24 hours): Temp Pulse Resp BP Pulse Ox 98.6 F 106 H 10 L 95/50 L 100 12/09/16 07:41 12/09/16 07:59 12/09/16 07:00 12/09/16 07:00 12/09/16 07:00 Intake and Output: 12/09/16 12/09/16 06:59 18:59 Intake Total 1175 Output Total 2930 Balance -1755 - Medications Medications: Current Medications Acetaminophen (Tylenol 325mg Tab) 650 mg PO Q4H PRN PRN Reason: Pain, moderate (4-7) Last Admin: 12/04/16 05:51 Dose: 650 mg Atorvastatin Calcium (Lipitor) 20 mg PO DIN COUNT INCLUDES [facility] Last Admin: 12/08/16 17:11 Dose: Not Given Hydromorphone HCl (Dilaudid) 1 mg IVP Q3H PRN PRN Reason: Pain, moderate (4-7) Last Admin: 12/09/16 06:06 Dose: 1 mg Hydromorphone HCl (Dilaudid) 2 mg IVP Q4H PRN PRN Reason: Pain, severe (8-10) Cefoxitin Sodium 1 gm/ Sodium (Chloride) 100 mls @ 100 mls/hr IV Q8H [facility] PRN Reason: Protocol Last Admin: 12/09/16 06:20 Dose: 100 mls/hr Metronidazole (Flagyl) 100 mls @ 100 mls/hr IVPB Q8 [facility] PRN Reason: Protocol Last Admin: 12/09/16 05:27 Dose: 100 mls/hr Sodium Chloride (Sodium Chloride 0.9%) 1,000 mls @ 75 mls/hr IV .[id number] COUNT INCLUDES THE [facility] Last Admin: 12/09/16 01:20 Dose: 75 mls/hr Acetaminophen (Ofirmev) 100 mls @ 400 mls/hr IVPB Q6H PRN PRN Reason: Fever >100.3 F Stop: 12/10/16 20:04 Last Admin: 12/08/16 20:15 Dose: 400 mls/hr Potassium Chloride (Potassium Chloride 20 Meq/100 Ml) 100 mls @ 50 mls/hr IVPB Q2H [facility] Stop: 12/09/16 11:14 Last Admin: 12/09/16 08:13 Dose: 50 mls/hr Metoprolol Tartrate (Lopressor) 2.5 mg IV Q12H [facility] Last Admin: 12/08/16 20:09 Dose: 2.5 mg Ondansetron HCl (Zofran Inj) 4 mg IVP Q4H PRN PRN Reason: Nausea/Vomiting Last Admin: 12/05/16 23:17 Dose: 4 mg Pantoprazole Sodium (Protonix Inj) 40 mg IVP DAILY [facility] Last Admin: 12/08/16 10:26 Dose: 40 mg Vitamin A (Vitamin A & D Oint Ud Foilpak) 1 ea TOP Q6 [facility] Last Admin: 12/09/16 05:38 Dose: 1 ea - Labs Labs: 12/09/16 05:00 12/09/16 05:00 PT 11.0 Seconds (9.9-11.8) 12/09/16 05:00 INR 1.02 (0.93-1.08) 12/09/16 05:00 APTT 27.7 Seconds (23.7-30.8) 12/09/16 05:00 - Constitutional Appears: Non-toxic, No Acute Distress - Head Exam Head Exam: ATRAUMATIC, NORMOCEPHALIC - Eye Exam Eye Exam: EOMI, Normal appearance - ENT Exam ENT Exam: Mucous Membranes Moist, Normal Exam - Respiratory Exam Respiratory Exam: NORMAL BREATHING PATTERN - Cardiovascular Exam Cardiovascular Exam: +S1, +S2 - GI/Abdominal Exam GI & Abdominal Exam: Soft. absent: Guarding, Rigid, Tenderness Additional comments: Midline inscision with dressing in place that is clean dry and inact. Removed today at bedside and painted with iodine. - Neurological Exam Neurological Exam: Alert, Awake - Psychiatric Exam Psychiatric exam: Normal Affect, Normal Mood - Skin Skin Exam: Dry, Intact Assessment and Plan - Assessment and Plan (Free Text) Assessment: This is a 71F with a PMH of Breast CA and Diverticulosis who presented with a GI bleed who is POD#2 s/p left colectomy and transverse colostomy. Tachycardic at 100-105, SBP 94-105 Anemic Hgb 8.8 monitor H/H transfuse as necessary, Coags and chem grossly normal Wound care: [place] with betadine twice daily Monitor ostomy output Advance diet to CLD today with goal of regular diet by tomorrow evening Will discuss with Dr. Thao Wesley PGY-1 <Cirilo Osuna - Last Filed: 12/10/16 08:08> Subjective - Date & Time of Evaluation Date of Evaluation: 12/09/16 Time of Evaluation: 11:05 Objective - Vital Signs/Intake and Output Vital Signs (last 24 hours): Temp Pulse Resp BP Pulse Ox 98.6 F 101 H 12 121/69 97 12/10/16 03:56 12/10/16 03:01 12/10/16 03:01 12/10/16 03:01 12/10/16 03:01 Intake and Output: 12/10/16 12/10/16 06:59 18:59 Intake Total 750 Output Total 560 Balance 190 - Medications Medications: Current Medications Acetaminophen (Tylenol 325mg Tab) 650 mg PO Q4H PRN PRN Reason: Pain, moderate (4-7) Last Admin: 12/04/16 05:51 Dose: 650 mg Atorvastatin Calcium (Lipitor) 20 mg PO DIN [facility] Last Admin: 12/09/16 17:37 Dose: Not Given Benzocaine/Menthol (Cepacol Sore Throat) 1 leo MT Q2H PRN PRN Reason: Sore Throat Last Admin: 12/09/16 20:24 Dose: 1 leo Hydromorphone HCl (Dilaudid) 1 mg IVP Q3H PRN PRN Reason: Pain, moderate (4-7) Last Admin: 12/10/16 00:35 Dose: 1 mg Hydromorphone HCl (Dilaudid) 2 mg IVP Q4H PRN PRN Reason: Pain, severe (8-10) Cefoxitin Sodium 1 gm/ Sodium (Chloride) 100 mls @ 100 mls/hr IV Q8H [facility] PRN Reason: Protocol Last Admin: 12/10/16 06:02 Dose: 100 mls/hr Metronidazole (Flagyl) 100 mls @ 100 mls/hr IVPB Q8 [facility] PRN Reason: Protocol Last Admin: 12/10/16 05:19 Dose: 100 mls/hr Acetaminophen (Ofirmev) 100 mls @ 400 mls/hr IVPB Q6H PRN PRN Reason: Fever >100.3 F Stop: 12/10/16 20:04 Last Admin: 12/08/16 20:15 Dose: 400 mls/hr Metoprolol Tartrate (Lopressor) 2.5 mg IV Q12H COUNT [facility]CLUDES [facility] Last Admin: 12/09/16 09:24 Dose: 2.5 mg Ondansetron HCl (Zofran Inj) 4 mg IVP Q4H PRN PRN Reason: Nausea/Vomiting Last Admin: 12/10/16 07:29 Dose: 4 mg Pantoprazole Sodium (Protonix Inj) 40 mg IVP DAILY COUNT [facility]CLUDES [facility] Last Admin: 12/09/16 09:26 Dose: 40 mg Vitamin A (Vitamin A & D Oint Ud Foilpak) 1 ea TOP Q6 [facility]CLUDES [facility] Last Admin: 12/10/16 06:03 Dose: Not Given - Labs Labs: 12/10/16 06:20 12/10/16 06:20 PT 11.0 Seconds (9.9-11.8) 12/09/16 05:00 INR 1.02 (0.93-1.08) 12/09/16 05:00 APTT 27.7 Seconds (23.7-30.8) 12/09/16 05:00 Assessment and Plan - Assessment and Plan (Free Text) Assessment: Patient was seen and examined by me. I agree with assessment and plan as per resident's note.
--- NOTE | 2016-12-09 11:34 | CP.CCUPN ---
<Mehran Gill - Last Filed: 12/09/16 11:27> CCU Subjective - Physician Review Subjective (Free Text): Pt seen and examined at bedside. Pt states she is doing better than yesterday. Pt had a temperature of 101 F last night and was given tylenol which helped her. Pt given 1 unit of PRBCs overnight. Pt is POD #2 left hemicolectomy with colostomy with SONU drain. Denies CP, SOB, N/V/D. CCU Objective - Vital Signs / Intake & Output Vital Signs (Last 4 hours): Vital Signs Temp Pulse Resp BP Pulse Ox 12/09/16 09:24 102 H 106/59 L 12/09/16 09:00 101 H 20 106/59 L 100 12/09/16 08:44 100 H 8 L 100 12/09/16 08:00 105 H 10 L 94/53 L 100 12/09/16 07:59 106 H 12/09/16 07:47 104 H 11 L 99 12/09/16 07:41 98.6 F Intake and Output (Last 8hrs): Intake & Output 12/08/16 12/09/16 12/09/16 22:59 06:59 14:59 Intake Total 825 1175 425 Output Total 735 2555 220 Balance 90 -1380 205 Intake: IV 825 1175 425 Right Internal Jugular 825 1175 425 Oral 0 Output: Gastric Amount 10 50 Left Nares 10 50 Drainage 50 20 Right Abdomen 50 20 Urine 675 2485 220 Urethral (Luevano) 675 2485 220 Other: Voiding Method Indwelling Catheter Indwelling Catheter # Bowel Movements 0 - Physical Exam Head: Positive for: Atraumatic, Normocephalic Pupils: Positive for: PERRL Extroacular Muscles: Positive for: EOMI Conjunctiva: Positive for: Normal Mouth: Positive for: Moist Mucous Membranes Neck: Positive for: Normal Range of Motion Respiratory/Chest: Positive for: Clear to Auscultation, Good Air Exchange. Negative for: Respiratory Distress, Accessory Muscle Use Cardiovascular: Positive for: Regular Rate and Rhythm, Normal S1, S2. Negative for: Murmurs Abdomen: Positive for: Tenderness (Along surgical site.), Normal Bowel Sounds, Ostomy Tubes (Left sided ostomy, SONU drain in place. ), Scars (Surgical wound, stapled. No erythema, edema, or drainage. ). Negative for: Distention, Peritoneal Signs Back: Positive for: Normal Inspection Upper Extremity: Positive for: Normal Inspection. Negative for: Cyanosis, Edema Lower Extremity: Positive for: Normal Inspection. Negative for: Edema Neurological: Positive for: GCS=15, CN II-XII Intact, Speech Normal Skin: Positive for: Warm, Dry, Normal Color. Negative for: Rashes Psychiatric: Positive for: Alert, Oriented x 3, Normal Insight, Normal Concentration - Medications Active Medications: Active Medications Generic Name Dose Route Start Last Admin Trade Name Freq PRN Reason Stop Dose Admin Acetaminophen 650 mg 12/04/16 05:43 12/04/16 05:51 Tylenol 325mg Tab PO 650 mg Q4H PRN Administration Pain, moderate (4-7) Atorvastatin Calcium 20 mg 12/04/16 17:00 12/08/16 17:11 Lipitor PO Not Given DIN CAREY Hydromorphone HCl 1 mg 12/08/16 19:38 12/09/16 06:06 Dilaudid IVP 1 mg Q3H PRN Administration Pain, moderate (4-7) Hydromorphone HCl 2 mg 12/08/16 19:37 Dilaudid IVP Q4H PRN Pain, severe (8-10) Cefoxitin Sodium 1 gm/ Sodium 100 mls @ 100 mls/hr 12/08/16 06:45 12/09/16 06: 20 Chloride IV 100 mls/hr Q8H CAREY Administration Protocol Metronidazole 100 mls @ 100 mls/hr 12/08/16 06:45 12/09/16 05:27 Flagyl IVPB 100 mls/hr Q8 CAREY Administration Protocol Sodium Chloride 1,000 mls @ 75 mls/hr 12/09/16 01:30 12/09/16 01:20 Sodium Chloride 0.9% IV 75 mls/hr .[id number] CAREY Administration Acetaminophen 100 mls @ 400 mls/hr 12/08/16 20:03 12/08/16 20:15 Ofirmev IVPB 12/10/16 20:04 400 mls/hr Q6H PRN Administration Fever >100.3 F Metoprolol Tartrate 2.5 mg 12/07/16 08:56 12/09/16 09:24 Lopressor IV 2.5 mg Q12H CAREY Administration Ondansetron HCl 4 mg 12/05/16 23:07 12/05/16 23:17 Zofran Inj IVP 4 mg Q4H PRN Administration Nausea/Vomiting Pantoprazole Sodium 40 mg 12/08/16 10:00 12/09/16 09:26 Protonix Inj IVP 40 mg DAILY CAREY Administration Vitamin A 1 ea 12/08/16 18:00 12/09/16 05:38 Vitamin A & D Oint Ud Foilpak TOP 1 ea Q6 CAREY Administration - Patient Studies Lab Studies: Lab Studies 12/09/16 12/09/16 12/09/16 Range/Units 07:11 05:00 00:15 WBC 11.1 H 11.1 H (4.5-11.0) 10^3/ul RBC 3.00 L 3.06 L (3.5-6.1) 10^6/uL Hgb 8.8 L 9.2 L (12.0-16.0) gm/dL Hct 27.1 L 27.0 L (36.0-48.0) % MCV 90.3 88.2 (80.0-105.0) fL MCH 29.3 30.1 (25.0-35.0) pg MCHC 32.5 34.1 (31.0-37.0) g/dl RDW 16.1 H 15.9 H (11.5-14.5) % Plt Count 130 130 (120.0-450.0) 10^3/uL MPV 10.6 10.3 (7.0-11.0) fl Gran % 83.5 H 84.2 H (50.0-68.0) % Lymph % (Auto) 9.0 L 8.6 L (22.0-35.0) % [place] % (Auto) 6.1 H 5.9 (1.0-6.0) % Eos % (Auto) 1.2 L 1.1 L (1.5-5.0) % Baso % (Auto) 0.2 0.2 (0.0-3.0) % Gran # 9.24 H 9.33 H (1.4-6.5) Lymph # 1.0 L 1.0 L (1.2-3.4) Redwood # 0.7 H 0.7 H (0.1-0.6) Eos # 0.1 0.1 (0.0-0.7) Baso # 0.02 0.02 (0.0-2.0) K/mm3 PT 11.0 11.4 (9.9-11.8) Seconds INR 1.02 1.06 (0.93-1.08) APTT 27.7 28.2 (23.7-30.8) Seconds Sodium 137 (132-148) mmol/L Potassium 3.5 L (3.6-5.0) mmol/L Chloride 103 (95-110) mmol/L Carbon Dioxide 28 (21-33) mmol/L Anion Gap 10 (10-20) BUN 6 L (7-21) mg/dL Creatinine 0.7 (0.5-1.4) mg/dL Est GFR ( Amer) > 60 Est GFR (Non-Af Amer) > 60 POC Glucose (mg/dL) 87 (65-110) mg/dL Random Glucose 82 (70-110) mg/dL Calcium 7.5 L (8.4-10.5) mg/dL Phosphorus (2.5-4.5) mg/dL Magnesium (1.7-2.2) mg/dL Total Bilirubin 0.8 (0.2-1.3) mg/dL AST 18 (15-39) U/L ALT 28 (7-56) U/L Alkaline Phosphatase 50 (38-133) U/L Lactate Dehydrogenase 424 (333-699) U/L Total Creatine Kinase 125 (35-230) U/L Troponin I 0.08 ng/mL Total Protein 4.6 L (5.8-8.3) g/dL Albumin 2.2 L (3.0-4.8) g/dL Globulin 2.4 gm/dL Albumin/Globulin Ratio 0.9 L (1.1-1.8) Blood Type Antibody Screen Crossmatch BBK History Checked 12/08/16 12/08/16 12/08/16 Range/Units 22:00 21:30 18:45 WBC 10.9 (4.5-11.0) 10^3/ul RBC 2.63 L (3.5-6.1) 10^6/uL Hgb 7.9 L (12.0-16.0) gm/dL Hct 23.1 L (36.0-48.0) % MCV 87.8 (80.0-105.0) fL MCH 30.0 (25.0-35.0) pg MCHC 34.2 (31.0-37.0) g/dl RDW 16.1 H (11.5-14.5) % Plt Count 136 (120.0-450.0) 10^3/uL MPV 10.2 (7.0-11.0) fl Gran % 84.3 H (50.0-68.0) % Lymph % (Auto) 7.7 L (22.0-35.0) % [place] % (Auto) 6.8 H (1.0-6.0) % Eos % (Auto) 0.9 L (1.5-5.0) % Baso % (Auto) 0.3 (0.0-3.0) % Gran # 9.16 H (1.4-6.5) Lymph # 0.8 L (1.2-3.4) Red[place] # 0.7 H (0.1-0.6) Eos # 0.1 (0.0-0.7) Baso # 0.03 (0.0-2.0) K/mm3 PT (9.9-11.8) Seconds INR (0.93-1.08) APTT (23.7-30.8) Seconds Sodium 136 (132-148) mmol/L Potassium 3.6 (3.6-5.0) mmol/L Chloride 104 (95-110) mmol/L Carbon Dioxide 28 (21-33) mmol/L Anion Gap 8 L (10-20) BUN 7 (7-21) mg/dL Creatinine 0.8 (0.5-1.4) mg/dL Est GFR ( Amer) > 60 Est GFR (Non-Af Amer) > 60 POC Glucose (mg/dL) 102 (65-110) mg/dL Random Glucose 90 (70-110) mg/dL Calcium 7.5 L (8.4-10.5) mg/dL Phosphorus (2.5-4.5) mg/dL Magnesium (1.7-2.2) mg/dL Total Bilirubin 1.0 (0.2-1.3) mg/dL AST 17 (15-39) U/L ALT 36 (7-56) U/L Alkaline Phosphatase 46 (38-133) U/L Lactate Dehydrogenase 399 (333-699) U/L Total Creatine Kinase 136 (35-230) U/L Troponin I 0.10 D ng/mL Total Protein 4.7 L (5.8-8.3) g/dL Albumin 2.2 L (3.0-4.8) g/dL Globulin 2.6 gm/dL Albumin/Globulin Ratio 0.8 L (1.1-1.8) Blood Type Antibody Screen Crossmatch BBK History Checked 12/08/16 12/08/16 12/08/16 Range/Units 17:35 15:57 12:20 WBC 11.2 H (4.5-11.0) 10^3/ul RBC 2.81 L (3.5-6.1) 10^6/uL Hgb 8.4 L 9.0 L (12.0-16.0) gm/dL Hct 24.6 L 25.8 L (36.0-48.0) % MCV 87.9 (80.0-105.0) fL MCH 30.2 (25.0-35.0) pg MCHC 34.4 (31.0-37.0) g/dl RDW 16.1 H (11.5-14.5) % Plt Count 139 (120.0-450.0) 10^3/uL MPV 11.1 H (7.0-11.0) fl Gran % (50.0-68.0) % Lymph % (Auto) (22.0-35.0) % Red[place] % (Auto) (1.0-6.0) % Eos % (Auto) (1.5-5.0) % Baso % (Auto) (0.0-3.0) % Gran # (1.4-6.5) Lymph # (1.2-3.4) Redwood # (0.1-0.6) Eos # (0.0-0.7) Baso # (0.0-2.0) K/mm3 PT (9.9-11.8) Seconds INR (0.93-1.08) APTT (23.7-30.8) Seconds Sodium (132-148) mmol/L Potassium (3.6-5.0) mmol/L Chloride (95-110) mmol/L Carbon Dioxide (21-33) mmol/L Anion Gap (10-20) BUN (7-21) mg/dL Creatinine (0.5-1.4) mg/dL Est GFR ( Amer) Est GFR (Non-Af Amer) POC Glucose (mg/dL) 118 H (65-110) mg/dL Random Glucose (70-110) mg/dL Calcium (8.4-10.5) mg/dL Phosphorus 3.3 (2.5-4.5) mg/dL Magnesium 1.9 (1.7-2.2) mg/dL Total Bilirubin (0.2-1.3) mg/dL AST (15-39) U/L ALT (7-56) U/L Alkaline Phosphatase (38-133) U/L Lactate Dehydrogenase (333-699) U/L Total Creatine Kinase (35-230) U/L Troponin I ng/mL Total Protein (5.8-8.3) g/dL Albumin (3.0-4.8) g/dL Globulin gm/dL Albumin/Globulin Ratio (1.1-1.8) Blood Type Antibody Screen Crossmatch BBK History Checked 12/08/16 12/06/16 Range/Units 11:34 20:00 WBC (4.5-11.0) 10^3/ul RBC (3.5-6.1) 10^6/uL Hgb (12.0-16.0) gm/dL Hct (36.0-48.0) % MCV (80.0-105.0) fL MCH (25.0-35.0) pg MCHC (31.0-37.0) g/dl RDW (11.5-14.5) % Plt Count (120.0-450.0) 10^3/uL MPV (7.0-11.0) fl Gran % (50.0-68.0) % Lymph % (Auto) (22.0-35.0) % [place] % (Auto) (1.0-6.0) % Eos % (Auto) (1.5-5.0) % Baso % (Auto) (0.0-3.0) % Gran # (1.4-6.5) Lymph # (1.2-3.4) Redwood # (0.1-0.6) Eos # (0.0-0.7) Baso # (0.0-2.0) K/mm3 PT (9.9-11.8) Seconds INR (0.93-1.08) APTT (23.7-30.8) Seconds Sodium (132-148) mmol/L Potassium (3.6-5.0) mmol/L Chloride (95-110) mmol/L Carbon Dioxide (21-33) mmol/L Anion Gap (10-20) BUN (7-21) mg/dL Creatinine (0.5-1.4) mg/dL Est GFR ( Amer) Est GFR (Non-Af Amer) POC Glucose (mg/dL) 110 (65-110) mg/dL Random Glucose (70-110) mg/dL Calcium (8.4-10.5) mg/dL Phosphorus (2.5-4.5) mg/dL Magnesium (1.7-2.2) mg/dL Total Bilirubin (0.2-1.3) mg/dL AST (15-39) U/L ALT (7-56) U/L Alkaline Phosphatase (38-133) U/L Lactate Dehydrogenase (333-699) U/L Total Creatine Kinase (35-230) U/L Troponin I ng/mL Total Protein (5.8-8.3) g/dL Albumin (3.0-4.8) g/dL Globulin gm/dL Albumin/Globulin Ratio (1.1-1.8) Blood Type A POSITIVE Antibody Screen Negative Crossmatch See Detail BBK History Checked Patient has bt Laboratory Results - last 24 hr 12/06/16 12/08/16 12/08/16 20:00 11:34 12:20 WBC RBC Hgb 9.0 L Hct 25.8 L MCV MCH MCHC RDW Plt Count MPV Gran % Lymph % (Auto) [place] % (Auto) Eos % (Auto) Baso % (Auto) Gran # Lymph # [place] # Eos # Baso # PT INR APTT Sodium Potassium Chloride Carbon Dioxide Anion Gap BUN Creatinine Est GFR ( Amer) Est GFR (Non-Af Amer) POC Glucose (mg/dL) 110 Random Glucose Calcium Phosphorus 3.3 Magnesium 1.9 Total Bilirubin AST ALT Alkaline Phosphatase Lactate Dehydrogenase Total Creatine Kinase Troponin I Total Protein Albumin Globulin Albumin/Globulin Ratio Blood Type A POSITIVE Antibody Screen Negative Crossmatch See Detail BBK History Checked Patient has bt 12/08/16 12/08/16 12/08/16 15:57 17:35 18:45 WBC 11.2 H RBC 2.81 L Hgb 8.5 L Hct 24.7 L MCV 87.9 MCH 30.2 MCHC 34.4 RDW 16.1 H Plt Count 139 MPV 11.1 H Gran % Lymph % (Auto) [place] % (Auto) Eos % (Auto) Baso % (Auto) Gran # Lymph # [place] # Eos # Baso # PT INR APTT Sodium 136 Potassium 3.6 Chloride 104 Carbon Dioxide 28 Anion Gap 8 L BUN 7 Creatinine 0.8 Est GFR ( Amer) > 60 Est GFR (Non-Af Amer) > 60 POC Glucose (mg/dL) 118 H Random Glucose 90 Calcium 7.5 L Phosphorus Magnesium Total Bilirubin 1.0 AST 17 ALT 36 Alkaline Phosphatase 46 Lactate Dehydrogenase 399 Total Creatine Kinase 136 Troponin I 0.10 D Total Protein 4.7 L Albumin 2.2 L Globulin 2.6 Albumin/Globulin Ratio 0.8 L Blood Type Antibody Screen Crossmatch BBK History Checked 12/08/16 12/08/16 12/09/16 21:30 22:00 00:15 WBC 10.9 11.1 H RBC 2.63 L 3.06 L Hgb 7.9 L 9.2 L Hct 23.1 L 27.0 L MCV 87.8 88.2 MCH 30.0 30.1 MCHC 34.2 34.1 RDW 16.1 H 15.9 H Plt Count 136 130 MPV 10.2 10.3 Gran % 84.3 H 84.2 H Lymph % (Auto) 7.7 L 8.6 L [place] % (Auto) 6.8 H 5.9 Eos % (Auto) 0.9 L 1.1 L Baso % (Auto) 0.3 0.2 Gran # 9.16 H 9.33 H Lymph # 0.8 L 1.0 L [place] # 0.7 H 0.7 H Eos # 0.1 0.1 Baso # 0.03 0.02 PT 11.4 INR 1.06 APTT 28.2 Sodium Potassium Chloride Carbon Dioxide Anion Gap BUN Creatinine Est GFR ( Amer) Est GFR (Non-Af Amer) POC Glucose (mg/dL) 102 Random Glucose Calcium Phosphorus Magnesium Total Bilirubin AST ALT Alkaline Phosphatase Lactate Dehydrogenase 424 Total Creatine Kinase 125 Troponin I 0.08 Total Protein Albumin Globulin Albumin/Globulin Ratio Blood Type Antibody Screen Crossmatch BBK History Checked 12/09/16 12/09/16 05:00 07:11 WBC 11.1 H RBC 3.00 L Hgb 8.8 L Hct 27.1 L MCV 90.3 MCH 29.3 MCHC 32.5 RDW 16.1 H Plt Count 130 MPV 10.6 Gran % 83.5 H Lymph % (Auto) 9.0 L [place] % (Auto) 6.1 H Eos % (Auto) 1.2 L Baso % (Auto) 0.2 Gran # 9.24 H Lymph # 1.0 L [place] # 0.7 H Eos # 0.1 Baso # 0.02 PT 11.0 INR 1.02 APTT 27.7 Sodium 137 Potassium 3.5 L Chloride 103 Carbon Dioxide 28 Anion Gap 10 BUN 6 L Creatinine 0.7 Est GFR ( Amer) > 60 Est GFR (Non-Af Amer) > 60 POC Glucose (mg/dL) 87 Random Glucose 82 Calcium 7.5 L Phosphorus Magnesium Total Bilirubin 0.8 AST 18 ALT 28 Alkaline Phosphatase 50 Lactate Dehydrogenase Total Creatine Kinase Troponin I Total Protein 4.6 L Albumin 2.2 L Globulin 2.4 Albumin/Globulin Ratio 0.9 L Blood Type Antibody Screen Crossmatch BBK History Checked EKG/Cardiology Studies: Cardiology / EKG Studies 12/08/16 18:22 EKG [ELECTROCARDIOGRAM] Stat Comment: Reason For Exam: tachycardia Fingerstick Blood Sugar Results: 87 Critical Care Progress Note - Nutrition Nutrition: Nutrition Category Date Time Status NPO Diet [DIET] Diets 12/07/16 Breakfast Ordered Assessment/Plan - Assessment and Plan (Free Text) Plan: 71 y/o F with PMH diverticulosis presents with lower GI bleed s/p left hemicolectomy with colostomy. Pt is POD #2. Pt will be OOB to chair today and will begin to work with PT. We will monitor the hg closely and transfuse to maintain hg greater than 7. Cardiology is following. Surgery will remove the NG tube today. Pt will remain in the ICU for further close monitoring of hg. Hg checked q6h. Neuro: AAOx3 Maintain normothermia CV: Hemodynamically stable Maintain MAP >65 Continue Lopressor 2.5mg IV Q12hr Pulm: Extubated yesterday Maintain spo2>90 GI: NG tube to be removed POD #2 left hemicolectomy with colostomy Incentive spirometry encouraged Transfused 1 unit PRBC overnight NPO diet Renal: Maintain euvolemia Maintain euglycemia Replenish electrolytes as needed Appropriate urine output Endo: Maintain euglycemia between 140-108 NS @ 75 cc/hr ID: Mild leukocytosis at 11 Low grade temperature overnight, tylenol given No leukocytosis, afebrile. Continue flagyl and cefoxitin as per surgery Heme: Pt has received PRBCs: 14 units, FFP: 6 units, Platelets: 2 units Transfuse to keep Hg greater than 7 PPX: Protonix Zofran SCDs Seen, reviewed, and discussed with attending Bridget, PGY-1 <Thaddeus HOLLIS,Michelle H - Last Filed: 12/09/16 13:55> CCU Objective - Vital Signs / Intake & Output Vital Signs (Last 4 hours): Vital Signs Temp Pulse Resp BP Pulse Ox 12/09/16 13:01 104 H 17 108/68 96 12/09/16 13:00 85 94 L 12/09/16 12:09 100 H 16 97 12/09/16 12:00 98.4 F 102 H 17 103/43 L 98 12/09/16 11:42 96 H 13 97 12/09/16 11:00 97 H 13 104/47 L 96 12/09/16 10:00 97 H 16 111/64 100 Intake and Output (Last 8hrs): Intake & Output 12/08/16 12/09/16 12/09/16 22:59 06:59 14:59 Intake Total 825 1175 650 Output Total 735 2555 220 Balance 90 -1380 430 Intake: IV 825 1175 650 Right Internal Jugular 825 1175 650 Oral 0 Output: Gastric Amount 10 50 Left Nares 10 50 Drainage 50 20 Right Abdomen 50 20 Urine 675 2485 220 Urethral (Luevano) 675 2485 220 Other: Voiding Method Indwelling Catheter Indwelling Catheter # Bowel Movements 0 - Medications Active Medications: Active Medications Generic Name Dose Route Start Last Admin Trade Name Freq PRN Reason Stop Dose Admin Acetaminophen 650 mg 12/04/16 05:43 12/04/16 05:51 Tylenol 325mg Tab PO 650 mg Q4H PRN Administration Pain, moderate (4-7) Atorvastatin Calcium 20 mg 12/04/16 17:00 12/08/16 17:11 Lipitor PO Not Given DIN CAREY Hydromorphone HCl 1 mg 12/08/16 19:38 12/09/16 12:57 Dilaudid IVP 1 mg Q3H PRN Administration Pain, moderate (4-7) Hydromorphone HCl 2 mg 12/08/16 19:37 Dilaudid IVP Q4H PRN Pain, severe (8-10) Cefoxitin Sodium 1 gm/ Sodium 100 mls @ 100 mls/hr 12/08/16 06:45 12/09/16 06: 20 Chloride IV 100 mls/hr Q8H CAREY Administration Protocol Metronidazole 100 mls @ 100 mls/hr 12/08/16 06:45 12/09/16 05:27 Flagyl IVPB 100 mls/hr Q8 CAREY Administration Protocol Sodium Chloride 1,000 mls @ 75 mls/hr 12/09/16 01:30 12/09/16 01:20 Sodium Chloride 0.9% IV 75 mls/hr .[id number] CAREY Administration Acetaminophen 100 mls @ 400 mls/hr 12/08/16 20:03 12/08/16 20:15 Ofirmev IVPB 12/10/16 20:04 400 mls/hr Q6H PRN Administration Fever >100.3 F Metoprolol Tartrate 2.5 mg 12/07/16 08:56 12/09/16 09:24 Lopressor IV 2.5 mg Q12H CAREY Administration Ondansetron HCl 4 mg 12/05/16 23:07 12/05/16 23:17 Zofran Inj IVP 4 mg Q4H PRN Administration Nausea/Vomiting Pantoprazole Sodium 40 mg 12/08/16 10:00 12/09/16 09:26 Protonix Inj IVP 40 mg DAILY CAREY Administration Vitamin A 1 ea 12/08/16 18:00 12/09/16 12:12 Vitamin A & D Oint Ud Foilpak TOP Not Given Q6 CAREY - Patient Studies Lab Studies: Lab Studies 12/09/16 12/09/16 12/09/16 Range/Units 12:36 07:11 05:00 WBC 11.1 H (4.5-11.0) 10^3/ul RBC 3.00 L (3.5-6.1) 10^6/uL Hgb 9.4 L 8.8 L (12.0-16.0) gm/dL Hct 27.5 L 27.1 L (36.0-48.0) % MCV 90.3 (80.0-105.0) fL MCH 29.3 (25.0-35.0) pg MCHC 32.5 (31.0-37.0) g/dl RDW 16.1 H (11.5-14.5) % Plt Count 130 (120.0-450.0) 10^3/uL MPV 10.6 (7.0-11.0) fl Gran % 83.5 H (50.0-68.0) % Lymph % (Auto) 9.0 L (22.0-35.0) % [place] % (Auto) 6.1 H (1.0-6.0) % Eos % (Auto) 1.2 L (1.5-5.0) % Baso % (Auto) 0.2 (0.0-3.0) % Gran # 9.24 H (1.4-6.5) Lymph # 1.0 L (1.2-3.4) [place] # 0.7 H (0.1-0.6) Eos # 0.1 (0.0-0.7) Baso # 0.02 (0.0-2.0) K/mm3 PT 11.0 (9.9-11.8) Seconds INR 1.02 (0.93-1.08) APTT 27.7 (23.7-30.8) Seconds Sodium 137 (132-148) mmol/L Potassium 3.5 L (3.6-5.0) mmol/L Chloride 103 (95-110) mmol/L Carbon Dioxide 28 (21-33) mmol/L Anion Gap 10 (10-20) BUN 6 L (7-21) mg/dL Creatinine 0.7 (0.5-1.4) mg/dL Est GFR ( Amer) > 60 Est GFR (Non-Af Amer) > 60 POC Glucose (mg/dL) 87 (65-110) mg/dL Random Glucose 82 (70-110) mg/dL Calcium 7.5 L (8.4-10.5) mg/dL Total Bilirubin 0.8 (0.2-1.3) mg/dL AST 18 (15-39) U/L ALT 28 (7-56) U/L Alkaline Phosphatase 50 (38-133) U/L Lactate Dehydrogenase (333-699) U/L Total Creatine Kinase (35-230) U/L Troponin I ng/mL Total Protein 4.6 L (5.8-8.3) g/dL Albumin 2.2 L (3.0-4.8) g/dL Globulin 2.4 gm/dL Albumin/Globulin Ratio 0.9 L (1.1-1.8) Blood Type Antibody Screen Crossmatch BBK History Checked 12/09/16 12/08/16 12/08/16 Range/Units 00:15 22:00 21:30 WBC 11.1 H 10.9 (4.5-11.0) 10^3/ul RBC 3.06 L 2.63 L (3.5-6.1) 10^6/uL Hgb 9.2 L 7.9 L (12.0-16.0) gm/dL Hct 27.0 L 23.1 L (36.0-48.0) % MCV 88.2 87.8 (80.0-105.0) fL MCH 30.1 30.0 (25.0-35.0) pg MCHC 34.1 34.2 (31.0-37.0) g/dl RDW 15.9 H 16.1 H (11.5-14.5) % Plt Count 130 136 (120.0-450.0) 10^3/uL MPV 10.3 10.2 (7.0-11.0) fl Gran % 84.2 H 84.3 H (50.0-68.0) % Lymph % (Auto) 8.6 L 7.7 L (22.0-35.0) % [place] % (Auto) 5.9 6.8 H (1.0-6.0) % Eos % (Auto) 1.1 L 0.9 L (1.5-5.0) % Baso % (Auto) 0.2 0.3 (0.0-3.0) % Gran # 9.33 H 9.16 H (1.4-6.5) Lymph # 1.0 L 0.8 L (1.2-3.4) [place] # 0.7 H 0.7 H (0.1-0.6) Eos # 0.1 0.1 (0.0-0.7) Baso # 0.02 0.03 (0.0-2.0) K/mm3 PT 11.4 (9.9-11.8) Seconds INR 1.06 (0.93-1.08) APTT 28.2 (23.7-30.8) Seconds Sodium (132-148) mmol/L Potassium (3.6-5.0) mmol/L Chloride (95-110) mmol/L Carbon Dioxide (21-33) mmol/L Anion Gap (10-20) BUN (7-21) mg/dL Creatinine (0.5-1.4) mg/dL Est GFR ( Amer) Est GFR (Non-Af Amer) POC Glucose (mg/dL) 102 (65-110) mg/dL Random Glucose (70-110) mg/dL Calcium (8.4-10.5) mg/dL Total Bilirubin (0.2-1.3) mg/dL AST (15-39) U/L ALT (7-56) U/L Alkaline Phosphatase (38-133) U/L Lactate Dehydrogenase 424 (333-699) U/L Total Creatine Kinase 125 (35-230) U/L Troponin I 0.08 ng/mL Total Protein (5.8-8.3) g/dL Albumin (3.0-4.8) g/dL Globulin gm/dL Albumin/Globulin Ratio (1.1-1.8) Blood Type Antibody Screen Crossmatch BBK History Checked 12/08/16 12/08/16 12/08/16 Range/Units 18:45 17:35 15:57 WBC 11.2 H (4.5-11.0) 10^3/ul RBC 2.81 L (3.5-6.1) 10^6/uL Hgb 8.4 L (12.0-16.0) gm/dL Hct 24.6 L (36.0-48.0) % MCV 87.9 (80.0-105.0) fL MCH 30.2 (25.0-35.0) pg MCHC 34.4 (31.0-37.0) g/dl RDW 16.1 H (11.5-14.5) % Plt Count 139 (120.0-450.0) 10^3/uL MPV 11.1 H (7.0-11.0) fl Gran % (50.0-68.0) % Lymph % (Auto) (22.0-35.0) % [place] % (Auto) (1.0-6.0) % Eos % (Auto) (1.5-5.0) % Baso % (Auto) (0.0-3.0) % Gran # (1.4-6.5) Lymph # (1.2-3.4) [place] # (0.1-0.6) Eos # (0.0-0.7) Baso # (0.0-2.0) K/mm3 PT (9.9-11.8) Seconds INR (0.93-1.08) APTT (23.7-30.8) Seconds Sodium 136 (132-148) mmol/L Potassium 3.6 (3.6-5.0) mmol/L Chloride 104 (95-110) mmol/L Carbon Dioxide 28 (21-33) mmol/L Anion Gap 8 L (10-20) BUN 7 (7-21) mg/dL Creatinine 0.8 (0.5-1.4) mg/dL Est GFR ( Amer) > 60 Est GFR (Non-Af Amer) > 60 POC Glucose (mg/dL) 118 H (65-110) mg/dL Random Glucose 90 (70-110) mg/dL Calcium 7.5 L (8.4-10.5) mg/dL Total Bilirubin 1.0 (0.2-1.3) mg/dL AST 17 (15-39) U/L ALT 36 (7-56) U/L Alkaline Phosphatase 46 (38-133) U/L Lactate Dehydrogenase 399 (333-699) U/L Total Creatine Kinase 136 (35-230) U/L Troponin I 0.10 D ng/mL Total Protein 4.7 L (5.8-8.3) g/dL Albumin 2.2 L (3.0-4.8) g/dL Globulin 2.6 gm/dL Albumin/Globulin Ratio 0.8 L (1.1-1.8) Blood Type Antibody Screen Crossmatch BBK History Checked 12/08/16 12/06/16 Range/Units 11:34 20:00 WBC (4.5-11.0) 10^3/ul RBC (3.5-6.1) 10^6/uL Hgb (12.0-16.0) gm/dL Hct (36.0-48.0) % MCV (80.0-105.0) fL MCH (25.0-35.0) pg MCHC (31.0-37.0) g/dl RDW (11.5-14.5) % Plt Count (120.0-450.0) 10^3/uL MPV (7.0-11.0) fl Gran % (50.0-68.0) % Lymph % (Auto) (22.0-35.0) % [place] % (Auto) (1.0-6.0) % Eos % (Auto) (1.5-5.0) % Baso % (Auto) (0.0-3.0) % Gran # (1.4-6.5) Lymph # (1.2-3.4) [place] # (0.1-0.6) Eos # (0.0-0.7) Baso # (0.0-2.0) K/mm3 PT (9.9-11.8) Seconds INR (0.93-1.08) APTT (23.7-30.8) Seconds Sodium (132-148) mmol/L Potassium (3.6-5.0) mmol/L Chloride (95-110) mmol/L Carbon Dioxide (21-33) mmol/L Anion Gap (10-20) BUN (7-21) mg/dL Creatinine (0.5-1.4) mg/dL Est GFR ( Amer) Est GFR (Non-Af Amer) POC Glucose (mg/dL) 110 (65-110) mg/dL Random Glucose (70-110) mg/dL Calcium (8.4-10.5) mg/dL Total Bilirubin (0.2-1.3) mg/dL AST (15-39) U/L ALT (7-56) U/L Alkaline Phosphatase (38-133) U/L Lactate Dehydrogenase (333-699) U/L Total Creatine Kinase (35-230) U/L Troponin I ng/mL Total Protein (5.8-8.3) g/dL Albumin (3.0-4.8) g/dL Globulin gm/dL Albumin/Globulin Ratio (1.1-1.8) Blood Type A POSITIVE Antibody Screen Negative Crossmatch See Detail BBK History Checked Patient has bt Laboratory Results - last 24 hr 12/06/16 12/08/16 12/08/16 20:00 11:34 15:57 WBC RBC Hgb Hct MCV MCH MCHC RDW Plt Count MPV Gran % Lymph % (Auto) [place] % (Auto) Eos % (Auto) Baso % (Auto) Gran # Lymph # [place] # Eos # Baso # PT INR APTT Sodium Potassium Chloride Carbon Dioxide Anion Gap BUN Creatinine Est GFR ( Amer) Est GFR (Non-Af Amer) POC Glucose (mg/dL) 110 118 H Random Glucose Calcium Total Bilirubin AST ALT Alkaline Phosphatase Lactate Dehydrogenase Total Creatine Kinase Troponin I Total Protein Albumin Globulin Albumin/Globulin Ratio Blood Type A POSITIVE Antibody Screen Negative Crossmatch See Detail BBK History Checked Patient has bt 12/08/16 12/08/16 12/08/16 17:35 18:45 21:30 WBC 11.2 H RBC 2.81 L Hgb 8.5 L Hct 24.7 L MCV 87.9 MCH 30.2 MCHC 34.4 RDW 16.1 H Plt Count 139 MPV 11.1 H Gran % Lymph % (Auto) [place] % (Auto) Eos % (Auto) Baso % (Auto) Gran # Lymph # [place] # Eos # Baso # PT INR APTT Sodium 136 Potassium 3.6 Chloride 104 Carbon Dioxide 28 Anion Gap 8 L BUN 7 Creatinine 0.8 Est GFR ( Amer) > 60 Est GFR (Non-Af Amer) > 60 POC Glucose (mg/dL) 102 Random Glucose 90 Calcium 7.5 L Total Bilirubin 1.0 AST 17 ALT 36 Alkaline Phosphatase 46 Lactate Dehydrogenase 399 Total Creatine Kinase 136 Troponin I 0.10 D Total Protein 4.7 L Albumin 2.2 L Globulin 2.6 Albumin/Globulin Ratio 0.8 L Blood Type Antibody Screen Crossmatch BBK History Checked 12/08/16 12/09/16 12/09/16 22:00 00:15 05:00 WBC 10.9 11.1 H 11.1 H RBC 2.63 L 3.06 L 3.00 L Hgb 7.9 L 9.2 L 8.8 L Hct 23.1 L 27.0 L 27.1 L MCV 87.8 88.2 90.3 MCH 30.0 30.1 29.3 MCHC 34.2 34.1 32.5 RDW 16.1 H 15.9 H 16.1 H Plt Count 136 130 130 MPV 10.2 10.3 10.6 Gran % 84.3 H 84.2 H 83.5 H Lymph % (Auto) 7.7 L 8.6 L 9.0 L [place] % (Auto) 6.8 H 5.9 6.1 H Eos % (Auto) 0.9 L 1.1 L 1.2 L Baso % (Auto) 0.3 0.2 0.2 Gran # 9.16 H 9.33 H 9.24 H Lymph # 0.8 L 1.0 L 1.0 L [place] # 0.7 H 0.7 H 0.7 H Eos # 0.1 0.1 0.1 Baso # 0.03 0.02 0.02 PT 11.4 11.0 INR 1.06 1.02 APTT 28.2 27.7 Sodium 137 Potassium 3.5 L Chloride 103 Carbon Dioxide 28 Anion Gap 10 BUN 6 L Creatinine 0.7 Est GFR ( Amer) > 60 Est GFR (Non-Af Amer) > 60 POC Glucose (mg/dL) Random Glucose 82 Calcium 7.5 L Total Bilirubin 0.8 AST 18 ALT 28 Alkaline Phosphatase 50 Lactate Dehydrogenase 424 Total Creatine Kinase 125 Troponin I 0.08 Total Protein 4.6 L Albumin 2.2 L Globulin 2.4 Albumin/Globulin Ratio 0.9 L Blood Type Antibody Screen Crossmatch BBK History Checked 12/09/16 12/09/16 07:11 12:36 WBC RBC Hgb 9.4 L Hct 27.5 L MCV MCH MCHC RDW Plt Count MPV Gran % Lymph % (Auto) [place] % (Auto) Eos % (Auto) Baso % (Auto) Gran # Lymph # [place] # Eos # Baso # PT INR APTT Sodium Potassium Chloride Carbon Dioxide Anion Gap BUN Creatinine Est GFR ( Amer) Est GFR (Non-Af Amer) POC Glucose (mg/dL) 87 Random Glucose Calcium Total Bilirubin AST ALT Alkaline Phosphatase Lactate Dehydrogenase Total Creatine Kinase Troponin I Total Protein Albumin Globulin Albumin/Globulin Ratio Blood Type Antibody Screen Crossmatch BBK History Checked EKG/Cardiology Studies: Cardiology / EKG Studies 12/08/16 18:22 EKG [ELECTROCARDIOGRAM] Stat Comment: Reason For Exam: tachycardia Critical Care Progress Note - Nutrition Nutrition: Nutrition Category Date Time Status Liquid Diet [DIET] Diets 12/09/16 Lunch Ordered Attending/Attestation - Attestation I have personally seen and examined this patient.: Yes I have fully participated in the care of the patient.: Yes I have reviewed all pertinent clinical information: Yes Notes (Text): 12/09/16 13:53 71 y/o F w/ massive G.I bleed from Diverticulosis Massive transfuion 15 units PRBC 6 units FFP s/p partial colectomy. No further overt bleeding noted. Keep HGB > 7 unless brisk bleeding is noted. NPO, advance diet per surgery. Ice chips to clears. PPI Monitor electrolytes and replete VITALS WNL. G.I and surgery following the patient. Out of bed to chair today . PT/OT needed DVT P SCD for now. cc time 55 min
[2016-12-09 12:46] LABS: HEMATOCRIT 27.5 % (36.0-48.0)
--- NOTE | 2016-12-09 13:12 | PN ---
DATE: 12/06/2016 ADDENDUM to GI consultation report dictated by CONRAD Presley. DESCRIPTION OF PROCEDURE: This patient was seen and evaluated earlier today, discussed with the caitlyn ent's daughter who was at bedside. The patient did have some drop in blood count during the night, w as transfused 2 units of packed RBC. Only one small bowel movement this morning noticed. PHYSICAL EXAMINATION: VITAL SIGNS: Remained stable. Blood pressure systolic around 98 to 100. ABDOMEN: Soft. There is no mass palpable. No tenderness. I would recommend nuclear scan to evaluate his ____ to further evaluate. Close followup of the hemog lobin and hematocrit. I also discussed with Dr. Osuna. The findings of the colonoscopy and en doscopy were discussed with the team and with Dr. Osuna. The patient has a multiple diverticul osis throughout the colon, and large diverticula in the left colon. The blood was present throughout the colon and with clots. The scope was advanced all the way into the cecum. A small amount of blo od was noticed in the terminal ileum; after lavage, it was clear. The likely source of bleeding appe ars to be a lower colonic bleeding, probably diverticular bleeding, possible left colonic, but there is no active bleeding site noted during the examination. The patient also had an upper GI endoscopy done which was negative. At this present time, the plan is to closely monitor the hemoglobin and hem atocrit, followup of the bleeding scan, transfusion of platelets and FFP. Kain Kam MD cc: [id number] TT: 12/06/2016 21:44:48 Confirmation # [id number] Dictation # [id number]
--- NOTE | 2016-12-09 13:14 | PN ---
DATE: 12/09/2016 Seen and examined at the bedside earlier today in CCU. The patient is not reported to have any fever s. Her NG tube was discontinued earlier today. No nausea, vomiting. Occasional postop pain, but no acute distress. Denies any shortness of breath or chest pain. VITAL SIGNS: Temperature is 98.6, blood pressure is 111/64, pulse is 97, respirations 16, and 100% O 2 saturation. LABORATORY DATA: WBC is 11.1, H and H are 8.8 and 27.1, platelets are 130. PT is 11.0, INR is 1.02, PTT 27.7. Sodium 137, K is 3.5, BUN is 6, creatinine is 0.7, total bilirubin 0.8, AST 18, ALT is 28 , alkaline phosphatase is 50. She had chest x-ray yesterday and negative for pneumothorax, no pleural effusion or active pulmonary disease. Right IJ line has been repositioned; it is now in satisfactory position within the SVC. No pneumothorax. PHYSICAL EXAMINATION: HEENT: Sclerae anicteric. NECK: Supple. CARDIAC: S1, S2. CHEST: Lung sounds with some faint rhonchi. ABDOMEN: With bowel sounds. It is soft. Positive colostomy. Her incision is open to air. The sta ples are dry and intact. EXTREMITIES: She has anti-embolism socks on. Did not see edema. ASSESSMENT: This is a 71-year-old female with past medical history of breast cancer, ____ likely sec ondary to ____. The patient is status post left hemicolectomy with colostomy. The patient also was having fevers. History of mitral regurgitation, gastroesophageal reflux disease. PLAN: Continue to monitor H and H, transfuse as necessary. So far has received a total of 14 units of packed RBCs, 6 of FFP, and 2 of platelets. She is also on n.p.o, on PPI Protonix daily, on IV ant ibiotics of Flagyl and ____, on IV fluids for hydration and Dilaudid for pain. Diet as per surgery, as per cardiology. Monitor H and H q. 6. The patient was seen and case discussed with Dr. Kam. Paty MARTINES cc: [id number] TT: 12/09/2016 12:37:59 Confirmation # [id number] Dictation # [id number]
[2016-12-09 14:08] LABS: PH,URINE 5.5 (4.7-8.0); URINE BILIRUBIN NEGATIVE (NEGATIVE); URINE BLOOD NEGATIVE (NEGATIVE); URINE GLUCOSE (UA) NEGATIVE (NEGATIVE); URINE KETONE >=80 mg/dL (NEGATIVE); URINE LEUKOCYTE ESTERASE NEGATIVE Leu/uL (NEGATIVE); URINE PROTEIN NEGATIVE mg/dL (<30 mg/dL); URINE UROBILINOGEN 0.2 E.U./dL (<1 E.U./dL)
[2016-12-09 14:10] LABS: URINE APPEARANCE CLEAR (CLEAR); URINE COLOR YELLOW (YELLOW)
--- NOTE | 2016-12-09 14:16 | PN ---
DATE: 12/09/2016 This patient was seen and evaluated earlier. Discussed with the community outreach director and also with the family . This 71-year-old patient underwent extended left hemicolectomy for massive lower gastrointestinal ble eding. Extensive diverticulosis noted in the left colon. The patient did have a bleeding scan earl er, which the initial being somewhat suggestive of bleeding source from the sigmoid colon. [place] py revealed only large amount of clotted blood. Presently, the patient did spike a temperature. T-m ax was 101. PHYSICAL EXAMINATION: VITAL SIGNS: T-max was 101, and blood pressure 103/43, respirations 17. ABDOMEN: Soft. Colostomy present. Slightly blood-tinged brown stool. LABORATORY DATA: Hemoglobin 9.4, status post 1 unit transfusion. It was 8.8 before. LFTs normal. Potassium 3.5 and supplemented. IMPRESSION: Status post extended left hemicolectomy for massive lower gastrointestinal bleeding, pro bable diverticular. Hemoglobin remains stable posttransfusion. History of valvular heart disease, f ever. Would recommend to continue the antibiotics, followup of the hemoglobin and hematocrit. Discu ssed again with the patient's family and community outreach director again. We will continue to closely follow up he r care and suggest further management based on the clinical course. Kain Kam MD cc: [id number] TT: 12/09/2016 14:16:01 Confirmation # [id number] Dictation # [id number] james
--- NOTE | 2016-12-09 15:04 | RAD ---
HISTORY: sepsis workup COMPARISON: 12/08/2016 FINDINGS: LUNGS: No active pulmonary disease. PLEURA: No significant pleural effusion identified, no pneumothorax apparent. CARDIOVASCULAR: Normal. OSSEOUS STRUCTURES: No significant abnormalities. VISUALIZED UPPER ABDOMEN: Normal. OTHER FINDINGS: None. IMPRESSION: No active disease.
--- NOTE | 2016-12-09 16:27 | CARD ---
APPROVED REPORT EKG Measurement Heart [id number] <Conclusion> Sinus tachycardia with premature atrial complexes Low voltage QRS Left anterior fascicular block Cannot rule out Inferior infarct (masked by fascicular block?), age undetermined Cannot rule out Anterior infarct, age undetermined Abnormal ECG
--- NOTE | 2016-12-09 16:39 | CP.PCM.PN ---
<Aminta Palm - Last Filed: 12/09/16 17:00> Subjective - Date & Time of Evaluation Date of Evaluation: 12/09/16 Time of Evaluation: 07:30 - Subjective Subjective: Pt seen and evaluated at the bedside. Pt was febrile at 101 degrees F during time of one PRBC transfusion overnight, resolved with tylenol. Pt extubated yesterday and underwent L hemicolectomy with colostomy two days prior. Pt denies SOB, N/V, and pain is controlled with medication. Objective - Vital Signs/Intake and Output Vital Signs (last 24 hours): Temp Pulse Resp BP Pulse Ox 98.4 F 104 H 17 108/68 96 12/09/16 12:00 12/09/16 13:01 12/09/16 13:01 12/09/16 13:01 12/09/16 13:01 Intake and Output: 12/09/16 12/09/16 06:59 18:59 Intake Total 1175 925 Output Total 2930 220 Balance -1755 705 - Medications Medications: Current Medications Acetaminophen (Tylenol 325mg Tab) 650 mg PO Q4H PRN PRN Reason: Pain, moderate (4-7) Last Admin: 12/04/16 05:51 Dose: 650 mg Atorvastatin Calcium (Lipitor) 20 mg PO DIN [facility] Last Admin: 12/08/16 17:11 Dose: Not Given Hydromorphone HCl (Dilaudid) 1 mg IVP Q3H PRN PRN Reason: Pain, moderate (4-7) Last Admin: 12/09/16 12:57 Dose: 1 mg Hydromorphone HCl (Dilaudid) 2 mg IVP Q4H PRN PRN Reason: Pain, severe (8-10) Cefoxitin Sodium 1 gm/ Sodium (Chloride) 100 mls @ 100 mls/hr IV Q8H [facility] PRN Reason: Protocol Last Admin: 12/09/16 14:30 Dose: 100 mls/hr Metronidazole (Flagyl) 100 mls @ 100 mls/hr IVPB Q8 [facility] PRN Reason: Protocol Last Admin: 12/09/16 14:12 Dose: 100 mls/hr Sodium Chloride (Sodium Chloride 0.9%) 1,000 mls @ 75 mls/hr IV .[id number] [facility] Last Admin: 12/09/16 01:20 Dose: 75 mls/hr Acetaminophen (Ofirmev) 100 mls @ 400 mls/hr IVPB Q6H PRN PRN Reason: Fever >100.3 F Stop: 12/10/16 20:04 Last Admin: 12/08/16 20:15 Dose: 400 mls/hr Metoprolol Tartrate (Lopressor) 2.5 mg IV Q12H [facility] Last Admin: 12/09/16 09:24 Dose: 2.5 mg Ondansetron HCl (Zofran Inj) 4 mg IVP Q4H PRN PRN Reason: Nausea/Vomiting Last Admin: 12/05/16 23:17 Dose: 4 mg Pantoprazole Sodium (Protonix Inj) 40 mg IVP DAILY [facility] Last Admin: 12/09/16 09:26 Dose: 40 mg Vitamin A (Vitamin A & D Oint Ud Foilpak) 1 ea TOP Q6 [facility] Last Admin: 12/09/16 12:12 Dose: Not Given - Labs Labs: 12/09/16 12:36 12/09/16 05:00 PT 11.0 Seconds (9.9-11.8) 12/09/16 05:00 INR 1.02 (0.93-1.08) 12/09/16 05:00 APTT 27.7 Seconds (23.7-30.8) 12/09/16 05:00 - Constitutional Appears: No Acute Distress, Other - Head Exam Head Exam: ATRAUMATIC, NORMOCEPHALIC - Eye Exam Eye Exam: EOMI, Normal appearance - Respiratory Exam Respiratory Exam: Rhonchi, NORMAL BREATHING PATTERN - Cardiovascular Exam Cardiovascular Exam: Tachycardia, +S1, +S2 - GI/Abdominal Exam GI & Abdominal Exam: Tenderness Additional comments: SONU drain (RLQ) and colostomy bag (LLQ) present. - Extremities Exam Extremities Exam: Normal Capillary Refill. absent: Tenderness - Neurological Exam Neurological Exam: Alert, Awake - Psychiatric Exam Psychiatric exam: Normal Affect, Normal Mood - Skin Skin Exam: Normal Color, Warm Assessment and Plan - Assessment and Plan (Free Text) Assessment: 71 yo F with PMHx of valvular heart disease, GI bleed, and breast cancer presenting with hematochezia. s/p POD# 2 L hemicolectomy, extubated yesterday Plan: GI bleed/hematochezia s/p LT hemicolectomy, End colostomy day 2 s/p multiple pRBC infusions Hemoglobin 9.4 today at noon monitor for continued bleeding CBC Q6, continue to monitor CT shows diverticulosis, esophagitis, cystic structure 2.2 cm pancreatic neck GI consult. Dr. Kam. recs appreciated Colonoscopy 12/05 showed diverticula throughout colon, small amount of blood in terminal ileum. No active bleeding appreciated (see full report) Surgery following, Dr. Skelton, appreciate recs protonix borderline leukocytosis, pt is currently afebrile, not in distress liquid diet as per surgery FS Q6, maintain euglycemia Hx of HTN Continue metoprolol IV Hx of HLD continue home statin Hx of valvular heart disease cardio consult. Dr. Barber. recs appreciated Monitor I&O PPx protonix AE hose <Gaurang Ascencio A - Last Filed: 12/09/16 17:46> Objective - Vital Signs/Intake and Output Vital Signs (last 24 hours): Temp Pulse Resp BP Pulse Ox 98.4 F 104 H 17 108/68 96 12/09/16 12:00 12/09/16 13:01 12/09/16 13:01 12/09/16 13:01 12/09/16 13:01 Intake and Output: 12/09/16 12/09/16 06:59 18:59 Intake Total 1175 1000 Output Total 2930 1070 Balance -1755 -70 - Medications Medications: Current Medications Acetaminophen (Tylenol 325mg Tab) 650 mg PO Q4H PRN PRN Reason: Pain, moderate (4-7) Last Admin: 12/04/16 05:51 Dose: 650 mg Atorvastatin Calcium (Lipitor) 20 mg PO DIN [facility] Last Admin: 12/09/16 17:37 Dose: Not Given Hydromorphone HCl (Dilaudid) 1 mg IVP Q3H PRN PRN Reason: Pain, moderate (4-7) Last Admin: 12/09/16 12:57 Dose: 1 mg Hydromorphone HCl (Dilaudid) 2 mg IVP Q4H PRN PRN Reason: Pain, severe (8-10) Cefoxitin Sodium 1 gm/ Sodium (Chloride) 100 mls @ 100 mls/hr IV Q8H [facility] PRN Reason: Protocol Last Admin: 12/09/16 14:30 Dose: 100 mls/hr Metronidazole (Flagyl) 100 mls @ 100 mls/hr IVPB Q8 [facility] PRN Reason: Protocol Last Admin: 12/09/16 14:12 Dose: 100 mls/hr Acetaminophen (Ofirmev) 100 mls @ 400 mls/hr IVPB Q6H PRN PRN Reason: Fever >100.3 F Stop: 12/10/16 20:04 Last Admin: 12/08/16 20:15 Dose: 400 mls/hr Metoprolol Tartrate (Lopressor) 2.5 mg IV Q12H [facility] Last Admin: 12/09/16 09:24 Dose: 2.5 mg Ondansetron HCl (Zofran Inj) 4 mg IVP Q4H PRN PRN Reason: Nausea/Vomiting Last Admin: 12/05/16 23:17 Dose: 4 mg Pantoprazole Sodium (Protonix Inj) 40 mg IVP DAILY [facility] Last Admin: 12/09/16 09:26 Dose: 40 mg Vitamin A (Vitamin A & D Oint Ud Foilpak) 1 ea TOP Q6 [facility] Last Admin: 12/09/16 17:36 Dose: Not Given - Labs Labs: 12/09/16 12:36 12/09/16 05:00 PT 11.0 Seconds (9.9-11.8) 12/09/16 05:00 INR 1.02 (0.93-1.08) 12/09/16 05:00 APTT 27.7 Seconds (23.7-30.8) 12/09/16 05:00 Attending/Attestation - Attestation I have personally seen and examined this patient.: Yes I have fully participated in the care of the patient.: Yes I have reviewed all pertinent clinical information, including history, physical exam and plan: Yes Notes (Text): 12/09/16 17:41 71 year old female with past medical history of valvular heart disease, breast cancer, and GIB presented with hematochezia and anemia. She has received multiple blood transfusions. GI and surgery are following the patient. CT and colonoscopy were reviewed as above. She is s/p hemicolectomy. Will follow up with surgery recommendations. Continue to monitor cbc closely and transfuse as needed. Septic workup is ordered for fever overnight. Cardiology is also following patient for history of valvular heart disease and hypertension. Will replete and repeat potassium. Gaurang Ascencio MD Hospitalist.
[2016-12-09 18:28] LABS: HEMATOCRIT 27.3 % (36.0-48.0); PHOSPHOROUS 2.4 mg/dL (2.5-4.5)
[2016-12-09] MEDS ORDERED: Benzocaine/Menthol (Cepacol) Lozenge MT PRN (20:01)
[2016-12-10 00:10] LABS: HEMATOCRIT 26.3 % (36.0-48.0)
[2016-12-10] MEDS: Vitamins A & D Oint UD Foilpak TOP SCH ×4 (00:20→17:19)
[2016-12-10] MEDS: HYDROmorphone 1 mg/ml ISec IVP PRN ×2 (00:35→09:45)
[2016-12-10] MEDS ORDERED: Sodium Chloride 0.9% 500 ML IV STA (02:36)
[2016-12-10] MEDS: metroNIDAZOLE IV 500 mg/100 ml 100 ML IVPB SCH ×3 (05:19→21:42)
[2016-12-10] MEDS: cefOXitin Sodium 1 GM in Sodium Chloride 0.9% 100 ML IV SCH ×3 (06:02→22:36)
[2016-12-10 06:44] LABS: ADD MANUAL DIFF? NO
[2016-12-10 07:00] LABS: ALB/GLOB RATIO 0.8 (1.1-1.8); ALKALINE PHOSPHATASE 54 U/L (38-133); ALT/SGPT 31 U/L (7-56); AST/SGOT 19 U/L (15-39); BILIRUBIN,TOTAL 0.6 mg/dL (0.2-1.3); BLOOD UREA NITROGEN 6 mg/dL (7-21); CALCIUM 7.8 mg/dL (8.4-10.5); CARBON DIOXIDE 28 mmol/L (21-33); CHLORIDE 100 mmol/L (98-107); GFR AFRICAN-AMERICAN > 60; GLUCOSE,RANDOM 92 mg/dL (70-110); POTASSIUM 3.5 mmol/L (3.6-5.0); SODIUM 136 mmol/L (132-148); TOTAL PROTEIN 5.2 g/dL (5.8-8.3)
[2016-12-10 07:05] LABS: BASO # 0.02 K/mm3 (0.0-2.0); BASO % 0.2 % (0.0-3.0); EOS # 0.1 (0.0-0.7); EOS % 0.9 % (1.5-5.0); GRAN # 9.16 (1.4-6.5); GRAN % 88.1 % (50.0-68.0); LYMPH # 0.7 (1.2-3.4); LYMPH % 7.1 % (22.0-35.0); MEAN CELL VOLUME 88.9 fL (80.0-105.0); MEAN CORPUSCULAR HEMOGLOBIN 30.2 pg (25.0-35.0); MEAN CORPUSCULAR HGB CONC 33.9 g/dl (31.0-37.0); MEAN PLATELET VOLUME 9.9 fl (7.0-11.0); MONO # 0.4 (0.1-0.6); MONO % 3.7 % (1.0-6.0); PLATELET COUNT 157 10^3/uL (120.0-450.0); RED CELL DISTRIBUTION WIDTH 16.1 % (11.5-14.5); WHITE BLOOD COUNT 10.4 10^3/ul (4.5-11.0)
--- NOTE | 2016-12-10 07:35 | CP.PCM.PN ---
Subjective - Date & Time of Evaluation Date of Evaluation: 12/10/16 Time of Evaluation: 08:00 - Subjective Subjective: Stable in CCU. No CP or SOB. Vomited this AM. Took clear liqs and was OOB to chair yesterday. V/S noted. RSR/S. tachy PE: Lungs: rhonchi Cor.: S1S2, sys murmur Abd.: soft. Colostomy. Ext.: no edema Neuro.: alert I/E=[id number] Labs noted: H/H= 9.5/28, K+= 3.5 CXR 12/09: nad ECG 12/09 noted: S.Tachy., LAHB, PRWP, STTW changes, No change except slower rate. Objective - Vital Signs/Intake and Output Vital Signs (last 24 hours): Temp Pulse Resp BP Pulse Ox 98.6 F 101 H 12 121/69 97 12/10/16 03:56 12/10/16 03:01 12/10/16 03:01 12/10/16 03:01 12/10/16 03:01 Intake and Output: 12/10/16 12/10/16 06:59 18:59 Intake Total 750 Output Total 560 Balance 190 - Medications Medications: Current Medications Acetaminophen (Tylenol 325mg Tab) 650 mg PO Q4H PRN PRN Reason: Pain, moderate (4-7) Last Admin: 12/04/16 05:51 Dose: 650 mg Atorvastatin Calcium (Lipitor) 20 mg PO DIN [facility] Last Admin: 12/09/16 17:37 Dose: Not Given Benzocaine/Menthol (Cepacol Sore Throat) 1 leo MT Q2H PRN PRN Reason: Sore Throat Last Admin: 12/09/16 20:24 Dose: 1 leo Hydromorphone HCl (Dilaudid) 1 mg IVP Q3H PRN PRN Reason: Pain, moderate (4-7) Last Admin: 12/10/16 00:35 Dose: 1 mg Hydromorphone HCl (Dilaudid) 2 mg IVP Q4H PRN PRN Reason: Pain, severe (8-10) Cefoxitin Sodium 1 gm/ Sodium (Chloride) 100 mls @ 100 mls/hr IV Q8H [facility] PRN Reason: Protocol Last Admin: 12/10/16 06:02 Dose: 100 mls/hr Metronidazole (Flagyl) 100 mls @ 100 mls/hr IVPB Q8 [facility] PRN Reason: Protocol Last Admin: 12/10/16 05:19 Dose: 100 mls/hr Acetaminophen (Ofirmev) 100 mls @ 400 mls/hr IVPB Q6H PRN PRN Reason: Fever >100.3 F Stop: 12/10/16 20:04 Last Admin: 12/08/16 20:15 Dose: 400 mls/hr Metoprolol Tartrate (Lopressor) 2.5 mg IV Q12H [facility] Last Admin: 12/09/16 09:24 Dose: 2.5 mg Ondansetron HCl (Zofran Inj) 4 mg IVP Q4H PRN PRN Reason: Nausea/Vomiting Last Admin: 12/10/16 07:29 Dose: 4 mg Pantoprazole Sodium (Protonix Inj) 40 mg IVP DAILY [facility] Last Admin: 12/09/16 09:26 Dose: 40 mg Vitamin A (Vitamin A & D Oint Ud Foilpak) 1 ea TOP Q6 [facility] Last Admin: 12/10/16 06:03 Dose: Not Given - Labs Labs: 12/10/16 06:20 12/10/16 06:20 PT 11.0 Seconds (9.9-11.8) 12/09/16 05:00 INR 1.02 (0.93-1.08) 12/09/16 05:00 APTT 27.7 Seconds (23.7-30.8) 12/09/16 05:00 Assessment and Plan - Assessment and Plan (Free Text) Plan: Assessment: Active LGI Bleeding from Sigmoid Colon S/P extended left hemicolectomy H/O diverticulosis with remote GIB Severe MR Mild/mod. LVD, possible related to chemo tx. Breast cancer s/p mastectomy and chemo. HLD GERD Plan: Replace K+ GI and Surg. F/U Monitor I/O. High Risk for CHF due to sev. MR and mod. LVD IV metoprolol 2.5 Q 12H if BPs OK. Monitor: H/H, labs, I/O, sats., etc. OOB to chair Will follow.
[2016-12-10] MEDS: Metoprolol 1 mg/ml Inj IV SCH (08:04)
[2016-12-10] MEDS: Potassium Chloride 40 mEq/30 ml LIQ UD PO ONE ×2 (08:04→10:00)
[2016-12-10] MEDS: Potassium Chloride 20 mEq 100 ML IVPB SCH ×2 (08:46→12:10)
--- NOTE | 2016-12-10 09:18 | CARD ---
APPROVED REPORT EKG Measurement Heart [id number] IN [id number] <Conclusion> Sinus tachycardia with premature atrial complexes Left axis deviation/LAHB PRWP NSSTW changes No change except the rate is slower.
[2016-12-10] MEDS ORDERED: Morphine 2 mg/ml ISec IM PRN (09:56)
--- NOTE | 2016-12-10 11:16 | CP.CCUPN ---
<Mehran Gill - Last Filed: 12/10/16 11:11> CCU Subjective - Physician Review Subjective (Free Text): Pt seen and examined at bedside. No acute events overnight. Pt had 1 episode of nausea and vomiting this morning, and was given zofran which helped. Pt was changed from NPO to liquids yesterday and tolerated it well. Pt was not given any transfusions overnight. Denies CP, SOB, diarrhea, headaches, fevers, chills. CCU Objective - Vital Signs / Intake & Output Vital Signs (Last 4 hours): Vital Signs Temp Pulse Resp BP Pulse Ox 12/10/16 09:09 98.3 F 12/10/16 08:15 98.3 F 12/10/16 08:04 107 H 118/70 12/10/16 08:00 102 H 16 118/70 100 Intake and Output (Last 8hrs): Intake & Output 12/09/16 12/10/16 12/10/16 22:59 06:59 14:59 Intake Total 695 750 Output Total 1020 560 Balance -325 190 Intake: IV 275 400 Right Internal Jugular 275 400 NSS 0 Oral 420 350 Output: Drainage 170 60 Left Abdomen 120 Right Abdomen 50 60 Urine 850 500 Urethral (Luevano) 850 500 Other: Voiding Method Indwelling Catheter Indwelling Catheter - Physical Exam Head: Positive for: Atraumatic, Normocephalic Pupils: Positive for: PERRL Extroacular Muscles: Positive for: EOMI Conjunctiva: Positive for: Normal Mouth: Positive for: Moist Mucous Membranes Neck: Positive for: Normal Range of Motion, Other (Right IJ line in place.) Respiratory/Chest: Positive for: Clear to Auscultation, Good Air Exchange. Negative for: Respiratory Distress, Accessory Muscle Use Cardiovascular: Positive for: Regular Rate and Rhythm, Normal S1, S2. Negative for: Murmurs Abdomen: Positive for: Tenderness (Along surgical site. Improved from previous day. ), Normal Bowel Sounds, Ostomy Tubes (Left sided ostomy, SONU drain in place. ), Scars (Surgical wound, stapled. No erythema, edema, or drainage. ). Negative for: Distention, Peritoneal Signs Back: Positive for: Normal Inspection Upper Extremity: Positive for: Normal Inspection. Negative for: Cyanosis, Edema Lower Extremity: Positive for: Normal Inspection. Negative for: Edema Neurological: Positive for: GCS=15, CN II-XII Intact, Speech Normal Skin: Positive for: Warm, Dry, Normal Color. Negative for: Rashes Psychiatric: Positive for: Alert, Oriented x 3, Normal Insight, Normal Concentration - Medications Active Medications: Active Medications Generic Name Dose Route Start Last Admin Trade Name Freq PRN Reason Stop Dose Admin Acetaminophen 650 mg 12/04/16 05:43 12/04/16 05:51 Tylenol 325mg Tab PO 650 mg Q4H PRN Administration Pain, moderate (4-7) Atorvastatin Calcium 20 mg 12/04/16 17:00 12/09/16 17:37 Lipitor PO Not Given DIN CAREY Benzocaine/Menthol 1 leo 12/09/16 20:01 12/09/16 20:24 Cepacol Sore Throat MT 1 leo Q2H PRN Administration Sore Throat Cefoxitin Sodium 1 gm/ Sodium 100 mls @ 100 mls/hr 12/08/16 06:45 12/10/16 06: 02 Chloride IV 100 mls/hr Q8H CAREY Administration Protocol Metronidazole 100 mls @ 100 mls/hr 12/08/16 06:45 12/10/16 05:19 Flagyl IVPB 100 mls/hr Q8 CAREY Administration Protocol Acetaminophen 100 mls @ 400 mls/hr 12/08/16 20:03 12/08/16 20:15 Ofirmev IVPB 12/10/16 20:04 400 mls/hr Q6H PRN Administration Fever >100.3 F Potassium Chloride 100 mls @ 50 mls/hr 12/10/16 08:45 12/10/16 08:46 Potassium Chloride 20 Meq/100 Ml IVPB 12/10/16 12:44 50 mls/hr Q2H CAREY Administration Metoprolol Tartrate 2.5 mg 12/07/16 08:56 12/10/16 08:04 Lopressor IV 2.5 mg Q12H CAREY Administration Morphine Sulfate 2 mg 12/10/16 09:56 Morphine IM Q4H PRN Pain, moderate (4-7) Ondansetron HCl 4 mg 12/05/16 23:07 12/10/16 07:29 Zofran Inj IVP 4 mg Q4H PRN Administration Nausea/Vomiting Pantoprazole Sodium 40 mg 12/08/16 10:00 12/10/16 09:05 Protonix Inj IVP 40 mg DAILY CAREY Administration Vitamin A 1 ea 12/08/16 18:00 12/10/16 06:03 Vitamin A & D Oint Ud Foilpak TOP Not Given Q6 CAREY - Patient Studies Lab Studies: Lab Studies 12/10/16 12/10/16 12/10/16 Range/Units 07:19 06:35 06:20 WBC 10.4 (4.5-11.0) 10^3/ul RBC 3.15 L (3.5-6.1) 10^6/uL Hgb 9.5 L (12.0-16.0) gm/dL Hct 28.0 L (36.0-48.0) % MCV 88.9 (80.0-105.0) fL MCH 30.2 (25.0-35.0) pg MCHC 33.9 (31.0-37.0) g/dl RDW 16.1 H (11.5-14.5) % Plt Count 157 (120.0-450.0) 10^3/uL MPV 9.9 (7.0-11.0) fl Gran % 88.1 H (50.0-68.0) % Lymph % (Auto) 7.1 L (22.0-35.0) % [place] % (Auto) 3.7 (1.0-6.0) % Eos % (Auto) 0.9 L (1.5-5.0) % Baso % (Auto) 0.2 (0.0-3.0) % Gran # 9.16 H (1.4-6.5) Lymph # 0.7 L (1.2-3.4) [place] # 0.4 (0.1-0.6) Eos # 0.1 (0.0-0.7) Baso # 0.02 (0.0-2.0) K/mm3 Sodium 136 (132-148) mmol/L Potassium 3.5 L (3.6-5.0) mmol/L Chloride 100 (98-107) mmol/L Carbon Dioxide 28 (21-33) mmol/L Anion Gap 12 (10-20) BUN 6 L (7-21) mg/dL Creatinine 0.6 (0.5-1.4) mg/dL Est GFR ( Amer) > 60 Est GFR (Non-Af Amer) > 60 POC Glucose (mg/dL) 108 87 (65-110) mg/dL Random Glucose 92 (70-110) mg/dL Calcium 7.8 L (8.4-10.5) mg/dL Phosphorus (2.5-4.5) mg/dL Magnesium (1.7-2.2) mg/dL Total Bilirubin 0.6 (0.2-1.3) mg/dL AST 19 (15-39) U/L ALT 31 (7-56) U/L Alkaline Phosphatase 54 (38-133) U/L Total Protein 5.2 L (5.8-8.3) g/dL Albumin 2.3 L (3.0-4.8) g/dL Globulin 2.9 gm/dL Albumin/Globulin Ratio 0.8 L (1.1-1.8) Urine Color (YELLOW) Urine Appearance (CLEAR) Urine pH (4.7-8.0) Ur Specific [place] (1.005-1.035) Urine Protein (<30 mg/dL) mg/dL Urine Glucose (UA) (NEGATIVE) mg/dL Urine Ketones (NEGATIVE) mg/dL Urine Blood (NEGATIVE) Urine Nitrate (NEGATIVE) Urine Bilirubin (NEGATIVE) Urine Urobilinogen (<1 E.U./dL) E.U./dL Ur Leukocyte Esterase (NEGATIVE) Dara/uL Crossmatch 12/10/16 12/10/16 12/09/16 Range/Units 06:00 00:00 22:00 WBC (4.5-11.0) 10^3/ul RBC (3.5-6.1) 10^6/uL Hgb 8.8 L (12.0-16.0) gm/dL Hct 26.3 L (36.0-48.0) % MCV (80.0-105.0) fL MCH (25.0-35.0) pg MCHC (31.0-37.0) g/dl RDW (11.5-14.5) % Plt Count (120.0-450.0) 10^3/uL MPV (7.0-11.0) fl Gran % (50.0-68.0) % Lymph % (Auto) (22.0-35.0) % [place] % (Auto) (1.0-6.0) % Eos % (Auto) (1.5-5.0) % Baso % (Auto) (0.0-3.0) % Gran # (1.4-6.5) Lymph # (1.2-3.4) [place] # (0.1-0.6) Eos # (0.0-0.7) Baso # (0.0-2.0) K/mm3 Sodium (132-148) mmol/L Potassium (3.6-5.0) mmol/L Chloride (98-107) mmol/L Carbon Dioxide (21-33) mmol/L Anion Gap (10-20) BUN (7-21) mg/dL Creatinine (0.5-1.4) mg/dL Est GFR ( Amer) Est GFR (Non-Af Amer) POC Glucose (mg/dL) 97 (65-110) mg/dL Random Glucose (70-110) mg/dL Calcium (8.4-10.5) mg/dL Phosphorus (2.5-4.5) mg/dL Magnesium 2.1 (1.7-2.2) mg/dL Total Bilirubin (0.2-1.3) mg/dL AST (15-39) U/L ALT (7-56) U/L Alkaline Phosphatase (38-133) U/L Total Protein (5.8-8.3) g/dL Albumin (3.0-4.8) g/dL Globulin gm/dL Albumin/Globulin Ratio (1.1-1.8) Urine Color (YELLOW) Urine Appearance (CLEAR) Urine pH (4.7-8.0) Ur Specific [place] (1.005-1.035) Urine Protein (<30 mg/dL) mg/dL Urine Glucose (UA) (NEGATIVE) mg/dL Urine Ketones (NEGATIVE) mg/dL Urine Blood (NEGATIVE) Urine Nitrate (NEGATIVE) Urine Bilirubin (NEGATIVE) Urine Urobilinogen (<1 E.U./dL) E.U./dL Ur Leukocyte Esterase (NEGATIVE) Dara/uL Crossmatch 12/09/16 12/09/16 12/09/16 Range/Units 18:10 16:33 13:50 WBC (4.5-11.0) 10^3/ul RBC (3.5-6.1) 10^6/uL Hgb 9.3 L (12.0-16.0) gm/dL Hct 27.3 L (36.0-48.0) % MCV (80.0-105.0) fL MCH (25.0-35.0) pg MCHC (31.0-37.0) g/dl RDW (11.5-14.5) % Plt Count (120.0-450.0) 10^3/uL MPV (7.0-11.0) fl Gran % (50.0-68.0) % Lymph % (Auto) (22.0-35.0) % [place] % (Auto) (1.0-6.0) % Eos % (Auto) (1.5-5.0) % Baso % (Auto) (0.0-3.0) % Gran # (1.4-6.5) Lymph # (1.2-3.4) [place] # (0.1-0.6) Eos # (0.0-0.7) Baso # (0.0-2.0) K/mm3 Sodium (132-148) mmol/L Potassium (3.6-5.0) mmol/L Chloride (98-107) mmol/L Carbon Dioxide (21-33) mmol/L Anion Gap (10-20) BUN (7-21) mg/dL Creatinine (0.5-1.4) mg/dL Est GFR ( Amer) Est GFR (Non-Af Amer) POC Glucose (mg/dL) 118 H (65-110) mg/dL Random Glucose (70-110) mg/dL Calcium (8.4-10.5) mg/dL Phosphorus 2.4 L (2.5-4.5) mg/dL Magnesium 2.0 (1.7-2.2) mg/dL Total Bilirubin (0.2-1.3) mg/dL AST (15-39) U/L ALT (7-56) U/L Alkaline Phosphatase (38-133) U/L Total Protein (5.8-8.3) g/dL Albumin (3.0-4.8) g/dL Globulin gm/dL Albumin/Globulin Ratio (1.1-1.8) Urine Color Yellow (YELLOW) Urine Appearance Clear (CLEAR) Urine pH 5.5 (4.7-8.0) Ur Specific [place] 1.025 (1.005-1.035) Urine Protein Negative (<30 mg/dL) mg/dL Urine Glucose (UA) Negative (NEGATIVE) mg/dL Urine Ketones >=80 (NEGATIVE) mg/dL Urine Blood Negative (NEGATIVE) Urine Nitrate Negative (NEGATIVE) Urine Bilirubin Negative (NEGATIVE) Urine Urobilinogen 0.2 (<1 E.U./dL) E.U./dL Ur Leukocyte Esterase Negative (NEGATIVE) Dara/uL Crossmatch 12/09/16 12/09/16 12/06/16 Range/Units 12:36 11:18 20:00 WBC (4.5-11.0) 10^3/ul RBC (3.5-6.1) 10^6/uL Hgb 9.4 L (12.0-16.0) gm/dL Hct 27.5 L (36.0-48.0) % MCV (80.0-105.0) fL MCH (25.0-35.0) pg MCHC (31.0-37.0) g/dl RDW (11.5-14.5) % Plt Count (120.0-450.0) 10^3/uL MPV (7.0-11.0) fl Gran % (50.0-68.0) % Lymph % (Auto) (22.0-35.0) % [place] % (Auto) (1.0-6.0) % Eos % (Auto) (1.5-5.0) % Baso % (Auto) (0.0-3.0) % Gran # (1.4-6.5) Lymph # (1.2-3.4) [place] # (0.1-0.6) Eos # (0.0-0.7) Baso # (0.0-2.0) K/mm3 Sodium (132-148) mmol/L Potassium (3.6-5.0) mmol/L Chloride (98-107) mmol/L Carbon Dioxide (21-33) mmol/L Anion Gap (10-20) BUN (7-21) mg/dL Creatinine (0.5-1.4) mg/dL Est GFR ( Amer) Est GFR (Non-Af Amer) POC Glucose (mg/dL) 91 (65-110) mg/dL Random Glucose (70-110) mg/dL Calcium (8.4-10.5) mg/dL Phosphorus (2.5-4.5) mg/dL Magnesium (1.7-2.2) mg/dL Total Bilirubin (0.2-1.3) mg/dL AST (15-39) U/L ALT (7-56) U/L Alkaline Phosphatase (38-133) U/L Total Protein (5.8-8.3) g/dL Albumin (3.0-4.8) g/dL Globulin gm/dL Albumin/Globulin Ratio (1.1-1.8) Urine Color (YELLOW) Urine Appearance (CLEAR) Urine pH (4.7-8.0) Ur Specific [place] (1.005-1.035) Urine Protein (<30 mg/dL) mg/dL Urine Glucose (UA) (NEGATIVE) mg/dL Urine Ketones (NEGATIVE) mg/dL Urine Blood (NEGATIVE) Urine Nitrate (NEGATIVE) Urine Bilirubin (NEGATIVE) Urine Urobilinogen (<1 E.U./dL) E.U./dL Ur Leukocyte Esterase (NEGATIVE) Dara/uL Crossmatch See Detail Laboratory Results - last 24 hr 12/06/16 12/09/16 12/09/16 20:00 11:18 12:36 WBC RBC Hgb 9.4 L Hct 27.5 L MCV MCH MCHC RDW Plt Count MPV Gran % Lymph % (Auto) [place] % (Auto) Eos % (Auto) Baso % (Auto) Gran # Lymph # [place] # Eos # Baso # Sodium Potassium Chloride Carbon Dioxide Anion Gap BUN Creatinine Est GFR ( Amer) Est GFR (Non-Af Amer) POC Glucose (mg/dL) 91 Random Glucose Calcium Phosphorus Magnesium Total Bilirubin AST ALT Alkaline Phosphatase Total Protein Albumin Globulin Albumin/Globulin Ratio Urine Color Urine Appearance Urine pH Ur Specific [place] Urine Protein Urine Glucose (UA) Urine Ketones Urine Blood Urine Nitrate Urine Bilirubin Urine Urobilinogen Ur Leukocyte Esterase Crossmatch See Detail 12/09/16 12/09/16 12/09/16 13:50 16:33 18:10 WBC RBC Hgb 9.3 L Hct 27.3 L MCV MCH MCHC RDW Plt Count MPV Gran % Lymph % (Auto) [place] % (Auto) Eos % (Auto) Baso % (Auto) Gran # Lymph # [place] # Eos # Baso # Sodium Potassium Chloride Carbon Dioxide Anion Gap BUN Creatinine Est GFR ( Amer) Est GFR (Non-Af Amer) POC Glucose (mg/dL) 118 H Random Glucose Calcium Phosphorus 2.4 L Magnesium 2.0 Total Bilirubin AST ALT Alkaline Phosphatase Total Protein Albumin Globulin Albumin/Globulin Ratio Urine Color Yellow Urine Appearance Clear Urine pH 5.5 Ur Specific [place] 1.025 Urine Protein Negative Urine Glucose (UA) Negative Urine Ketones >=80 Urine Blood Negative Urine Nitrate Negative Urine Bilirubin Negative Urine Urobilinogen 0.2 Ur Leukocyte Esterase Negative Crossmatch 12/09/16 12/10/16 12/10/16 22:00 00:00 06:00 WBC RBC Hgb 8.8 L Hct 26.3 L MCV MCH MCHC RDW Plt Count MPV Gran % Lymph % (Auto) [place] % (Auto) Eos % (Auto) Baso % (Auto) Gran # Lymph # [place] # Eos # Baso # Sodium Potassium Chloride Carbon Dioxide Anion Gap BUN Creatinine Est GFR ( Amer) Est GFR (Non-Af Amer) POC Glucose (mg/dL) 97 Random Glucose Calcium Phosphorus Magnesium 2.1 Total Bilirubin AST ALT Alkaline Phosphatase Total Protein Albumin Globulin Albumin/Globulin Ratio Urine Color Urine Appearance Urine pH Ur Specific [place] Urine Protein Urine Glucose (UA) Urine Ketones Urine Blood Urine Nitrate Urine Bilirubin Urine Urobilinogen Ur Leukocyte Esterase Crossmatch 12/10/16 12/10/16 12/10/16 06:20 06:35 07:19 WBC 10.4 RBC 3.15 L Hgb 9.5 L Hct 28.0 L MCV 88.9 MCH 30.2 MCHC 33.9 RDW 16.1 H Plt Count 157 MPV 9.9 Gran % 88.1 H Lymph % (Auto) 7.1 L [place] % (Auto) 3.7 Eos % (Auto) 0.9 L Baso % (Auto) 0.2 Gran # 9.16 H Lymph # 0.7 L [place] # 0.4 Eos # 0.1 Baso # 0.02 Sodium 136 Potassium 3.5 L Chloride 100 Carbon Dioxide 28 Anion Gap 12 BUN 6 L Creatinine 0.6 Est GFR ( Amer) > 60 Est GFR (Non-Af Amer) > 60 POC Glucose (mg/dL) 87 108 Random Glucose 92 Calcium 7.8 L Phosphorus Magnesium Total Bilirubin 0.6 AST 19 ALT 31 Alkaline Phosphatase 54 Total Protein 5.2 L Albumin 2.3 L Globulin 2.9 Albumin/Globulin Ratio 0.8 L Urine Color Urine Appearance Urine pH Ur Specific [place] Urine Protein Urine Glucose (UA) Urine Ketones Urine Blood Urine Nitrate Urine Bilirubin Urine Urobilinogen Ur Leukocyte Esterase Crossmatch EKG/Cardiology Studies: Cardiology / EKG Studies 12/09/16 15:58 EKG [ELECTROCARDIOGRAM] Stat Comment: Reason For Exam: vtach vs afib Fingerstick Blood Sugar Results: 87 Critical Care Progress Note - Nutrition Nutrition: Nutrition Category Date Time Status Liquid Diet [DIET] Diets 12/09/16 Lunch Ordered Assessment/Plan - Assessment and Plan (Free Text) Plan: 71 y/o F with PMH of diverticulosis presents with lower GI bleed s/p left hemicolectomy with colostomy. Pt is POD #3 today Pt will continue to be encouraged to be out of bed to chair. Hg this morning is stable and no transfusion required at this time. We will monitor the hg closely and transfuse to maintain hg greater than 7. Cardiology, GI, and surgery are following. Surgery removed the NG tube yesterday, but will reconsider placing an NG tube again if vomiting continues. Pt may be transferred to medical floors later today if pt continues to improve. Neuro: AAOx3 Monitor for acute changes in mental status CV: Hemodynamically stable Maintain MAP >65 Will transition pt from lopressor to home medication coreg, but will start at half dose. Pulm: Maintain spo2>90 No respiratory distress GI: NG tube removed yesterday POD #3 left hemicolectomy with colostomy Incentive spirometry encouraged Liquid diet, advance as per surgery Renal: Maintain euvolemia Maintain euglycemia Replenish electrolytes as needed Appropriate urine output Endo: Maintain euglycemia between 140-108 IVF stopped ID: No leukocytosis, afebrile Continue flagyl and cefoxitin as per surgery Maintain normothermia Heme: Pt has received PRBCs: 14 units, FFP: 6 units, Platelets: 2 units Transfuse to keep Hg greater than 7 PPX: Protonix Zofran SCDs Seen, reviewed, and discussed with attending Bridget, PGY-1 <Thaddeus HOLLIS,Michelle H - Last Filed: 12/10/16 13:20> CCU Objective - Vital Signs / Intake & Output Vital Signs (Last 4 hours): Vital Signs Pulse Resp BP Pulse Ox 12/10/16 12:00 110 H 18 95/68 L 100 12/10/16 11:00 106 H 17 100/60 100 12/10/16 10:01 102 H 16 95/57 L 100 12/10/16 10:00 103 H 20 100 Intake and Output (Last 8hrs): Intake & Output 12/09/16 12/10/16 12/10/16 22:59 06:59 14:59 Intake Total 695 750 Output Total 1020 560 Balance -325 190 Intake: IV 275 400 Right Internal Jugular 275 400 NSS 0 Oral 420 350 Output: Drainage 170 60 Left Abdomen 120 Right Abdomen 50 60 Urine 850 500 Urethral ([place]uev[place]) 850 500 Other: Voiding Method Indwelling Catheter Indwelling Catheter - Medications Active Medications: Active Medications Generic Name Dose Route Start Last Admin Trade Name Freq PRN Reason Stop Dose Admin Acetaminophen 650 mg 12/04/16 05:43 12/04/16 05:51 Tylenol 325mg Tab PO 650 mg Q4H PRN Administration Pain, moderate (4-7) Atorvastatin Calcium 20 mg 12/04/16 17:00 12/09/16 17:37 Lipitor PO Not Given DIN CAREY Benzocaine/Menthol 1 leo 12/09/16 20:01 12/09/16 20:24 Cepacol Sore Throat MT 1 leo Q2H PRN Administration Sore Throat Carvedilol 3.125 mg 12/10/16 18:00 Coreg PO BID CAREY Cefoxitin Sodium 1 gm/ Sodium 100 mls @ 100 mls/hr 12/08/16 06:45 12/10/16 06: 02 Chloride IV 100 mls/hr Q8H CAREY Administration Protocol Metronidazole 100 mls @ 100 mls/hr 12/08/16 06:45 12/10/16 05:19 Flagyl IVPB 100 mls/hr Q8 CAREY Administration Protocol Acetaminophen 100 mls @ 400 mls/hr 12/08/16 20:03 12/08/16 20:15 Ofirmev IVPB 12/10/16 20:04 400 mls/hr Q6H PRN Administration Fever >100.3 F Morphine Sulfate 2 mg 12/10/16 09:56 Morphine IM Q4H PRN Pain, moderate (4-7) Ondansetron HCl 4 mg 12/05/16 23:07 12/10/16 07:29 Zofran Inj IVP 4 mg Q4H PRN Administration Nausea/Vomiting Pantoprazole Sodium 40 mg 12/08/16 10:00 12/10/16 09:05 Protonix Inj IVP 40 mg DAILY CAREY Administration Vitamin A 1 ea 12/08/16 18:00 12/10/16 12:57 Vitamin A & D Oint Ud Foilpak TOP Not Given Q6 CAREY - Patient Studies Lab Studies: Lab Studies 12/10/16 12/10/16 12/10/16 Range/Units 07:19 06:35 06:20 WBC 10.4 (4.5-11.0) 10^3/ul RBC 3.15 L (3.5-6.1) 10^6/uL Hgb 9.5 L (12.0-16.0) gm/dL Hct 28.0 L (36.0-48.0) % MCV 88.9 (80.0-105.0) fL MCH 30.2 (25.0-35.0) pg MCHC 33.9 (31.0-37.0) g/dl RDW 16.1 H (11.5-14.5) % Plt Count 157 (120.0-450.0) 10^3/uL MPV 9.9 (7.0-11.0) fl Gran % 88.1 H (50.0-68.0) % Lymph % (Auto) 7.1 L (22.0-35.0) % [place] % (Auto) 3.7 (1.0-6.0) % Eos % (Auto) 0.9 L (1.5-5.0) % Baso % (Auto) 0.2 (0.0-3.0) % Gran # 9.16 H (1.4-6.5) Lymph # 0.7 L (1.2-3.4) [place] # 0.4 (0.1-0.6) Eos # 0.1 (0.0-0.7) Baso # 0.02 (0.0-2.0) K/mm3 Sodium 136 (132-148) mmol/L Potassium 3.5 L (3.6-5.0) mmol/L Chloride 100 (98-107) mmol/L Carbon Dioxide 28 (21-33) mmol/L Anion Gap 12 (10-20) BUN 6 L (7-21) mg/dL Creatinine 0.6 (0.5-1.4) mg/dL Est GFR ( Amer) > 60 Est GFR (Non-Af Amer) > 60 POC Glucose (mg/dL) 108 87 (65-110) mg/dL Random Glucose 92 (70-110) mg/dL Calcium 7.8 L (8.4-10.5) mg/dL Phosphorus (2.5-4.5) mg/dL Magnesium (1.7-2.2) mg/dL Total Bilirubin 0.6 (0.2-1.3) mg/dL AST 19 (15-39) U/L ALT 31 (7-56) U/L Alkaline Phosphatase 54 (38-133) U/L Total Protein 5.2 L (5.8-8.3) g/dL Albumin 2.3 L (3.0-4.8) g/dL Globulin 2.9 gm/dL Albumin/Globulin Ratio 0.8 L (1.1-1.8) Urine Color (YELLOW) Urine Appearance (CLEAR) Urine pH (4.7-8.0) Ur Specific [place] (1.005-1.035) Urine Protein (<30 mg/dL) mg/dL Urine Glucose (UA) (NEGATIVE) mg/dL Urine Ketones (NEGATIVE) mg/dL Urine Blood (NEGATIVE) Urine Nitrate (NEGATIVE) Urine Bilirubin (NEGATIVE) Urine Urobilinogen (<1 E.U./dL) E.U./dL Ur Leukocyte Esterase (NEGATIVE) Dara/uL Crossmatch 12/10/16 12/10/16 12/09/16 Range/Units 06:00 00:00 22:00 WBC (4.5-11.0) 10^3/ul RBC (3.5-6.1) 10^6/uL Hgb 8.8 L (12.0-16.0) gm/dL Hct 26.3 L (36.0-48.0) % MCV (80.0-105.0) fL MCH (25.0-35.0) pg MCHC (31.0-37.0) g/dl RDW (11.5-14.5) % Plt Count (120.0-450.0) 10^3/uL MPV (7.0-11.0) fl Gran % (50.0-68.0) % Lymph % (Auto) (22.0-35.0) % [place] % (Auto) (1.0-6.0) % Eos % (Auto) (1.5-5.0) % Baso % (Auto) (0.0-3.0) % Gran # (1.4-6.5) Lymph # (1.2-3.4) [place] # (0.1-0.6) Eos # (0.0-0.7) Baso # (0.0-2.0) K/mm3 Sodium (132-148) mmol/L Potassium (3.6-5.0) mmol/L Chloride (98-107) mmol/L Carbon Dioxide (21-33) mmol/L Anion Gap (10-20) BUN (7-21) mg/dL Creatinine (0.5-1.4) mg/dL Est GFR ( Amer) Est GFR (Non-Af Amer) POC Glucose (mg/dL) 97 (65-110) mg/dL Random Glucose (70-110) mg/dL Calcium (8.4-10.5) mg/dL Phosphorus (2.5-4.5) mg/dL Magnesium 2.1 (1.7-2.2) mg/dL Total Bilirubin (0.2-1.3) mg/dL AST (15-39) U/L ALT (7-56) U/L Alkaline Phosphatase (38-133) U/L Total Protein (5.8-8.3) g/dL Albumin (3.0-4.8) g/dL Globulin gm/dL Albumin/Globulin Ratio (1.1-1.8) Urine Color (YELLOW) Urine Appearance (CLEAR) Urine pH (4.7-8.0) Ur Specific [place] (1.005-1.035) Urine Protein (<30 mg/dL) mg/dL Urine Glucose (UA) (NEGATIVE) mg/dL Urine Ketones (NEGATIVE) mg/dL Urine Blood (NEGATIVE) Urine Nitrate (NEGATIVE) Urine Bilirubin (NEGATIVE) Urine Urobilinogen (<1 E.U./dL) E.U./dL Ur Leukocyte Esterase (NEGATIVE) Dara/uL Crossmatch 12/09/16 12/09/16 12/09/16 Range/Units 18:10 16:33 13:50 WBC (4.5-11.0) 10^3/ul RBC (3.5-6.1) 10^6/uL Hgb 9.3 L (12.0-16.0) gm/dL Hct 27.3 L (36.0-48.0) % MCV (80.0-105.0) fL MCH (25.0-35.0) pg MCHC (31.0-37.0) g/dl RDW (11.5-14.5) % Plt Count (120.0-450.0) 10^3/uL MPV (7.0-11.0) fl Gran % (50.0-68.0) % Lymph % (Auto) (22.0-35.0) % [place] % (Auto) (1.0-6.0) % Eos % (Auto) (1.5-5.0) % Baso % (Auto) (0.0-3.0) % Gran # (1.4-6.5) Lymph # (1.2-3.4) [place] # (0.1-0.6) Eos # (0.0-0.7) Baso # (0.0-2.0) K/mm3 Sodium (132-148) mmol/L Potassium (3.6-5.0) mmol/L Chloride (98-107) mmol/L Carbon Dioxide (21-33) mmol/L Anion Gap (10-20) BUN (7-21) mg/dL Creatinine (0.5-1.4) mg/dL Est GFR ( Amer) Est GFR (Non-Af Amer) POC Glucose (mg/dL) 118 H (65-110) mg/dL Random Glucose (70-110) mg/dL Calcium (8.4-10.5) mg/dL Phosphorus 2.4 L (2.5-4.5) mg/dL Magnesium 2.0 (1.7-2.2) mg/dL Total Bilirubin (0.2-1.3) mg/dL AST (15-39) U/L ALT (7-56) U/L Alkaline Phosphatase (38-133) U/L Total Protein (5.8-8.3) g/dL Albumin (3.0-4.8) g/dL Globulin gm/dL Albumin/Globulin Ratio (1.1-1.8) Urine Color Yellow (YELLOW) Urine Appearance Clear (CLEAR) Urine pH 5.5 (4.7-8.0) Ur Specific [place] 1.025 (1.005-1.035) Urine Protein Negative (<30 mg/dL) mg/dL Urine Glucose (UA) Negative (NEGATIVE) mg/dL Urine Ketones >=80 (NEGATIVE) mg/dL Urine Blood Negative (NEGATIVE) Urine Nitrate Negative (NEGATIVE) Urine Bilirubin Negative (NEGATIVE) Urine Urobilinogen 0.2 (<1 E.U./dL) E.U./dL Ur Leukocyte Esterase Negative (NEGATIVE) Dara/uL Crossmatch 12/09/16 12/06/16 Range/Units 11:18 20:00 WBC (4.5-11.0) 10^3/ul RBC (3.5-6.1) 10^6/uL Hgb (12.0-16.0) gm/dL Hct (36.0-48.0) % MCV (80.0-105.0) fL MCH (25.0-35.0) pg MCHC (31.0-37.0) g/dl RDW (11.5-14.5) % Plt Count (120.0-450.0) 10^3/uL MPV (7.0-11.0) fl Gran % (50.0-68.0) % Lymph % (Auto) (22.0-35.0) % [place] % (Auto) (1.0-6.0) % Eos % (Auto) (1.5-5.0) % Baso % (Auto) (0.0-3.0) % Gran # (1.4-6.5) Lymph # (1.2-3.4) [place] # (0.1-0.6) Eos # (0.0-0.7) Baso # (0.0-2.0) K/mm3 Sodium (132-148) mmol/L Potassium (3.6-5.0) mmol/L Chloride (98-107) mmol/L Carbon Dioxide (21-33) mmol/L Anion Gap (10-20) BUN (7-21) mg/dL Creatinine (0.5-1.4) mg/dL Est GFR ( Amer) Est GFR (Non-Af Amer) POC Glucose (mg/dL) 91 (65-110) mg/dL Random Glucose (70-110) mg/dL Calcium (8.4-10.5) mg/dL Phosphorus (2.5-4.5) mg/dL Magnesium (1.7-2.2) mg/dL Total Bilirubin (0.2-1.3) mg/dL AST (15-39) U/L ALT (7-56) U/L Alkaline Phosphatase (38-133) U/L Total Protein (5.8-8.3) g/dL Albumin (3.0-4.8) g/dL Globulin gm/dL Albumin/Globulin Ratio (1.1-1.8) Urine Color (YELLOW) Urine Appearance (CLEAR) Urine pH (4.7-8.0) Ur Specific [place] (1.005-1.035) Urine Protein (<30 mg/dL) mg/dL Urine Glucose (UA) (NEGATIVE) mg/dL Urine Ketones (NEGATIVE) mg/dL Urine Blood (NEGATIVE) Urine Nitrate (NEGATIVE) Urine Bilirubin (NEGATIVE) Urine Urobilinogen (<1 E.U./dL) E.U./dL Ur Leukocyte Esterase (NEGATIVE) Dara/uL Crossmatch See Detail Laboratory Results - last 24 hr 12/06/16 12/09/16 12/09/16 20:00 11:18 13:50 WBC RBC Hgb Hct MCV MCH MCHC RDW Plt Count MPV Gran % Lymph % (Auto) [place] % (Auto) Eos % (Auto) Baso % (Auto) Gran # Lymph # [place] # Eos # Baso # Sodium Potassium Chloride Carbon Dioxide Anion Gap BUN Creatinine Est GFR ( Amer) Est GFR (Non-Af Amer) POC Glucose (mg/dL) 91 Random Glucose Calcium Phosphorus Magnesium Total Bilirubin AST ALT Alkaline Phosphatase Total Protein Albumin Globulin Albumin/Globulin Ratio Urine Color Yellow Urine Appearance Clear Urine pH 5.5 Ur Specific [place] 1.025 Urine Protein Negative Urine Glucose (UA) Negative Urine Ketones >=80 Urine Blood Negative Urine Nitrate Negative Urine Bilirubin Negative Urine Urobilinogen 0.2 Ur Leukocyte Esterase Negative Crossmatch See Detail 12/09/16 12/09/16 12/09/16 16:33 18:10 22:00 WBC RBC Hgb 9.3 L Hct 27.3 L MCV MCH MCHC RDW Plt Count MPV Gran % Lymph % (Auto) [place] % (Auto) Eos % (Auto) Baso % (Auto) Gran # Lymph # [place] # Eos # Baso # Sodium Potassium Chloride Carbon Dioxide Anion Gap BUN Creatinine Est GFR ( Amer) Est GFR (Non-Af Amer) POC Glucose (mg/dL) 118 H 97 Random Glucose Calcium Phosphorus 2.4 L Magnesium 2.0 Total Bilirubin AST ALT Alkaline Phosphatase Total Protein Albumin Globulin Albumin/Globulin Ratio Urine Color Urine Appearance Urine pH Ur Specific [place] Urine Protein Urine Glucose (UA) Urine Ketones Urine Blood Urine Nitrate Urine Bilirubin Urine Urobilinogen Ur Leukocyte Esterase Crossmatch 12/10/16 12/10/16 12/10/16 00:00 06:00 06:20 WBC 10.4 RBC 3.15 L Hgb 8.8 L 9.5 L Hct 26.3 L 28.0 L MCV 88.9 MCH 30.2 MCHC 33.9 RDW 16.1 H Plt Count 157 MPV 9.9 Gran % 88.1 H Lymph % (Auto) 7.1 L [place] % (Auto) 3.7 Eos % (Auto) 0.9 L Baso % (Auto) 0.2 Gran # 9.16 H Lymph # 0.7 L [place] # 0.4 Eos # 0.1 Baso # 0.02 Sodium 136 Potassium 3.5 L Chloride 100 Carbon Dioxide 28 Anion Gap 12 BUN 6 L Creatinine 0.6 Est GFR ( Amer) > 60 Est GFR (Non-Af Amer) > 60 POC Glucose (mg/dL) Random Glucose 92 Calcium 7.8 L Phosphorus Magnesium 2.1 Total Bilirubin 0.6 AST 19 ALT 31 Alkaline Phosphatase 54 Total Protein 5.2 L Albumin 2.3 L Globulin 2.9 Albumin/Globulin Ratio 0.8 L Urine Color Urine Appearance Urine pH Ur Specific [place] Urine Protein Urine Glucose (UA) Urine Ketones Urine Blood Urine Nitrate Urine Bilirubin Urine Urobilinogen Ur Leukocyte Esterase Crossmatch 12/10/16 12/10/16 06:35 07:19 WBC RBC Hgb Hct MCV MCH MCHC RDW Plt Count MPV Gran % Lymph % (Auto) [place] % (Auto) Eos % (Auto) Baso % (Auto) Gran # Lymph # [place] # Eos # Baso # Sodium Potassium Chloride Carbon Dioxide Anion Gap BUN Creatinine Est GFR ( Amer) Est GFR (Non-Af Amer) POC Glucose (mg/dL) 87 108 Random Glucose Calcium Phosphorus Magnesium Total Bilirubin AST ALT Alkaline Phosphatase Total Protein Albumin Globulin Albumin/Globulin Ratio Urine Color Urine Appearance Urine pH Ur Specific [place] Urine Protein Urine Glucose (UA) Urine Ketones Urine Blood Urine Nitrate Urine Bilirubin Urine Urobilinogen Ur Leukocyte Esterase Crossmatch EKG/Cardiology Studies: Cardiology / EKG Studies 12/09/16 15:58 EKG [ELECTROCARDIOGRAM] Stat Comment: Reason For Exam: vtach vs afib Critical Care Progress Note - Nutrition Nutrition: Nutrition Category Date Time Status Liquid Diet [DIET] Diets 12/09/16 Lunch Ordered Attending/Attestation - Attestation I have personally seen and examined this patient.: Yes I have fully participated in the care of the patient.: Yes I have reviewed all pertinent clinical information: Yes Notes (Text): 12/10/16 13:16 71 y/o F s/p massive G.I bleed secondary to Diverticulosis s/p colectomy day # 3 -4 No further bleeding overnight. HGb stable. Tolerating diet . On empiric abx per surgical team. Needs post op care, Incentive spirometer , PT/OT DVT P SCD Monitor and replete electrolytes. cc time 45 min
--- NOTE | 2016-12-10 12:56 | CP.PCM.PN ---
<Igor Wesley - Last Filed: 12/10/16 12:49> Subjective - Date & Time of Evaluation Date of Evaluation: 12/10/16 Time of Evaluation: 07:49 - Subjective Subjective: General Surgery Progress Note For Dr. Lynn This 71F was seen and examined this AM at bedside. She reports no acute events overnight. This morning she complained of bilious emesis. She denies any fever, chills, chest pain, SOB nausea, vomiting diarrhea. Objective - Vital Signs/Intake and Output Vital Signs (last 24 hours): Temp Pulse Resp BP Pulse Ox 98.3 F 110 H 18 95/68 L 100 12/10/16 09:09 12/10/16 12:00 12/10/16 12:00 12/10/16 12:00 12/10/16 12:00 Intake and Output: 12/10/16 12/10/16 06:59 18:59 Intake Total 750 Output Total 560 Balance 190 - Medications Medications: Current Medications Acetaminophen (Tylenol 325mg Tab) 650 mg PO Q4H PRN PRN Reason: Pain, moderate (4-7) Last Admin: 12/04/16 05:51 Dose: 650 mg Atorvastatin Calcium (Lipitor) 20 mg PO DIN [facility] Last Admin: 12/09/16 17:37 Dose: Not Given Benzocaine/Menthol (Cepacol Sore Throat) 1 loe MT Q2H PRN PRN Reason: Sore Throat Last Admin: 12/09/16 20:24 Dose: 1 leo Carvedilol (Coreg) 3.125 mg PO BID [facility] Cefoxitin Sodium 1 gm/ Sodium (Chloride) 100 mls @ 100 mls/hr IV Q8H [facility] PRN Reason: Protocol Last Admin: 12/10/16 06:02 Dose: 100 mls/hr Metronidazole (Flagyl) 100 mls @ 100 mls/hr IVPB Q8 [facility] PRN Reason: Protocol Last Admin: 12/10/16 05:19 Dose: 100 mls/hr Acetaminophen (Ofirmev) 100 mls @ 400 mls/hr IVPB Q6H PRN PRN Reason: Fever >100.3 F Stop: 12/10/16 20:04 Last Admin: 12/08/16 20:15 Dose: 400 mls/hr Morphine Sulfate (Morphine) 2 mg IM Q4H PRN PRN Reason: Pain, moderate (4-7) Ondansetron HCl (Zofran Inj) 4 mg IVP Q4H PRN PRN Reason: Nausea/Vomiting Last Admin: 12/10/16 07:29 Dose: 4 mg Pantoprazole Sodium (Protonix Inj) 40 mg IVP DAILY [facility] Last Admin: 12/10/16 09:05 Dose: 40 mg Vitamin A (Vitamin A & D Oint Ud Foilpak) 1 ea TOP Q6 [facility] Last Admin: 12/10/16 06:03 Dose: Not Given - Labs Labs: 12/10/16 06:20 12/10/16 06:20 PT 11.0 Seconds (9.9-11.8) 12/09/16 05:00 INR 1.02 (0.93-1.08) 12/09/16 05:00 APTT 27.7 Seconds (23.7-30.8) 12/09/16 05:00 - Constitutional Appears: Non-toxic, No Acute Distress - Head Exam Head Exam: ATRAUMATIC, NORMOCEPHALIC - Eye Exam Eye Exam: EOMI, Normal appearance - ENT Exam ENT Exam: Mucous Membranes Moist, Normal Exam - Respiratory Exam Respiratory Exam: NORMAL BREATHING PATTERN - Cardiovascular Exam Cardiovascular Exam: +S1, +S2 - GI/Abdominal Exam GI & Abdominal Exam: Soft. absent: Guarding, Rigid, Tenderness Additional comments: Midline inscision with dressing in place that is clean dry and inact. Removed today at bedside and painted with iodine, stoma pink and patent - Neurological Exam Neurological Exam: Alert, Awake - Psychiatric Exam Psychiatric exam: Normal Affect, Normal Mood - Skin Skin Exam: Dry, Intact Assessment and Plan - Assessment and Plan (Free Text) Assessment: This is a 71F with a PMH of Breast CA and Diverticulosis who presented with a GI bleed who is POD#3 s/p left colectomy and transverse colostomy. Tachycardic at 100-110, SBP 95-118 Anemic Hgb 9.5 monitor H/H , Coags and chem grossly normal Wound care: [place] with betadine twice daily Monitor ostomy output Continue liquid diet, if emesis persists may make NPO again. Will discuss with Dr. Thao Wesley PGY-1 <Cirilo Osuna Last Filed: 12/12/16 08:30> Subjective - Date & Time of Evaluation Date of Evaluation: 12/10/16 Time of Evaluation: 15:40 Objective - Vital Signs/Intake and Output Vital Signs (last 24 hours): Temp Pulse Resp BP Pulse Ox 98.0 F 72 20 149/66 98 12/12/16 06:00 12/12/16 06:00 12/12/16 06:00 12/12/16 06:00 12/12/16 06:00 Intake and Output: 12/12/16 12/12/16 06:59 18:59 Intake Total 0 Output Total 1001 Balance -1001 - Medications Medications: Current Medications Acetaminophen (Tylenol 325mg Tab) 650 mg PO Q4H PRN PRN Reason: Pain, moderate (4-7) Last Admin: 12/04/16 05:51 Dose: 650 mg Acetaminophen (Tylenol 650 Mg Supp) 650 mg RC Q4H PRN PRN Reason: Fever >100.4 F Atorvastatin Calcium (Lipitor) 20 mg PO DIN [facility] Last Admin: 12/11/16 17:16 Dose: Not Given Benzocaine/Menthol (Cepacol Sore Throat) 1 leo MT Q2H PRN PRN Reason: Sore Throat Last Admin: 12/09/16 20:24 Dose: 1 leo Carvedilol (Coreg) 3.125 mg PO BID [facility] Last Admin: 12/10/16 17:18 Dose: 3.125 mg Cefoxitin Sodium 1 gm/ Sodium (Chloride) 100 mls @ 100 mls/hr IV Q8H [facility] PRN Reason: Protocol Last Admin: 12/12/16 06:06 Dose: 100 mls/hr Metronidazole (Flagyl) 100 mls @ 100 mls/hr IVPB Q8 [facility] PRN Reason: Protocol Last Admin: 12/12/16 06:05 Dose: 100 mls/hr Dextrose/Sodium Chloride (Dextrose 5%/0.9% Ns 1000 Ml) 1,000 mls @ 75 mls/hr IV .[id number] [facility] Last Admin: 12/12/16 03:29 Dose: 75 mls/hr Potassium Chloride (Potassium Chloride 20 Meq/100 Ml) 100 mls @ 50 mls/hr IVPB Q2H [facility] Stop: 12/12/16 12:29 Ketorolac Tromethamine (Toradol) 30 mg IVP Q6H PRN PRN Reason: Pain, moderate (4-7) Metoprolol Tartrate (Lopressor) 5 mg IVP Q6H [facility] Last Admin: 12/12/16 04:15 Dose: 5 mg Ondansetron HCl (Zofran Inj) 4 mg IVP Q6H PRN PRN Reason: Nausea/Vomiting Pantoprazole Sodium (Protonix Inj) 40 mg IVP DAILY [facility] Last Admin: 12/11/16 09:57 Dose: 40 mg Vitamin A (Vitamin A & D Oint Ud Foilpak) 1 ea TOP Q6 [facility] Last Admin: 12/11/16 22:08 Dose: Not Given - Labs Labs: 12/12/16 06:20 12/12/16 06:20 PT 10.6 Seconds (9.9-11.8) 12/11/16 15:20 INR 0.98 (0.93-1.08) 12/11/16 15:20 APTT 23.8 Seconds (23.7-30.8) 12/11/16 15:20 Assessment and Plan - Assessment and Plan (Free Text) Assessment: Patient was seen and examined by me. I agree with assessment and plan as per resident's note.
--- NOTE | 2016-12-10 13:34 | PN ---
DATE: 12/10/2016 Seen and examined at the bedside earlier today. The patient was being assisted out of bed into the [facility]. The patient did complain of some nausea. She was reported to have vomited about 100 mL of vom itus, no hematemesis. The patient's diet was advanced to a full liquid yesterday. No fever or chill s or any reports of any overt GI bleed, no bright red blood. VITAL SIGNS: Temperature 98.3, blood pressure is 95/57, heart rate 102, respiratory rate 16, 100 O2 saturation. LABORATORY DATA: WBC is 10.4, H and H is 9.5, hematocrit 28.0, platelets are 157. Chem: Sodium is 136, K is 3.5, BUN is 6, creatinine 0.6. LFTs are within normal limits. PHYSICAL EXAMINATION: HEENT: Sclerae are anicteric. NECK: Supple. CARDIAC: S1, S2. LUNGS: With decreased breath sounds, no rales or wheeze. ABDOMEN: With bowel sounds, soft. Incision with nicko open to air is dry and intact. No erythema or drainage noted. Positive SONU drain with serosanguineous and colostomy bag with left colostomy. EXTREMITIES: No edema. NEUROLOGIC: Awake, alert, oriented. ASSESSMENT: This is a 71-year-old female with a past medical history of breast cancer, status post g astrointestinal bleed, has history of diverticulosis. Gastrointestinal bleed may be secondary to div erticular bleed. The patient is status post a left hemicolectomy with colostomy. Postoperatively, t he patient has been having fevers. History of mitral regurgitation and gastroesophageal reflux disea se. PLAN: Continue to monitor H and H. H and H is stable today. No overt signs of GI bleed. She is on IV antibiotics of cefoxitin, is on PPI and also on IV antibiotics, Flagyl, and Zofran p.r.n. The pa johanna is currently on full liquid diet. Diet as per surgery. Continue to monitor H and H, monitor e lectrolytes. The patient is hypokalemic and receiving potassium replacements IV. The patient was se en and case discussed with Dr. Kam. Paty MARTINES cc: [id number] TT: 12/10/2016 13:34:03 Confirmation # [id number] Dictation # [id number] tn
[2016-12-10 14:05] LABS: HEMATOCRIT 32.1 % (36.0-48.0); MEAN CELL VOLUME 88.4 fL (80.0-105.0); MEAN PLATELET VOLUME 10.1 fl (7.0-11.0); RED CELL DISTRIBUTION WIDTH 15.9 % (11.5-14.5); WHITE BLOOD COUNT 13.4 10^3/ul (4.5-11.0)
[2016-12-10] MEDS: Dextrose 5%/0.9% NS 1,000 ML IV SCH (15:30)
--- NOTE | 2016-12-10 16:13 | CP.PCM.PN ---
<NéstorAminta - Last Filed: 12/10/16 16:19> Subjective - Date & Time of Evaluation Date of Evaluation: 12/10/16 Time of Evaluation: 08:15 - Subjective Subjective: Pt seen and evaluateed at the bedside. Pt had emesis overnight night once without blood. No BM reported and SOB denied. Afebrile. Objective - Vital Signs/Intake and Output Vital Signs (last 24 hours): Temp Pulse Resp BP Pulse Ox 98.3 F 110 H 18 95/68 L 100 12/10/16 09:09 12/10/16 12:00 12/10/16 12:00 12/10/16 12:00 12/10/16 12:00 Intake and Output: 12/10/16 12/10/16 06:59 18:59 Intake Total 750 Output Total 560 Balance 190 - Medications Medications: Current Medications Acetaminophen (Tylenol 325mg Tab) 650 mg PO Q4H PRN PRN Reason: Pain, moderate (4-7) Last Admin: 12/04/16 05:51 Dose: 650 mg Atorvastatin Calcium (Lipitor) 20 mg PO DIN [facility] Last Admin: 12/09/16 17:37 Dose: Not Given Benzocaine/Menthol (Cepacol Sore Throat) 1 leo MT Q2H PRN PRN Reason: Sore Throat Last Admin: 12/09/16 20:24 Dose: 1 leo Carvedilol (Coreg) 3.125 mg PO BID [facility] Cefoxitin Sodium 1 gm/ Sodium (Chloride) 100 mls @ 100 mls/hr IV Q8H [facility] PRN Reason: Protocol Last Admin: 12/10/16 14:31 Dose: 100 mls/hr Metronidazole (Flagyl) 100 mls @ 100 mls/hr IVPB Q8 [facility] PRN Reason: Protocol Last Admin: 12/10/16 13:37 Dose: 100 mls/hr Acetaminophen (Ofirmev) 100 mls @ 400 mls/hr IVPB Q6H PRN PRN Reason: Fever >100.3 F Stop: 12/10/16 20:04 Last Admin: 12/08/16 20:15 Dose: 400 mls/hr Dextrose/Sodium Chloride (Dextrose 5%/0.9% Ns 1000 Ml) 1,000 mls @ 75 mls/hr IV .[id number] [facility] Last Admin: 12/10/16 15:30 Dose: 75 mls/hr Morphine Sulfate (Morphine) 2 mg IM Q4H PRN PRN Reason: Pain, moderate (4-7) Last Admin: 12/10/16 14:06 Dose: 2 mg Ondansetron HCl (Zofran Inj) 4 mg IVP Q4H PRN PRN Reason: Nausea/Vomiting Last Admin: 12/10/16 07:29 Dose: 4 mg Pantoprazole Sodium (Protonix Inj) 40 mg IVP DAILY [facility] Last Admin: 12/10/16 09:05 Dose: 40 mg Vitamin A (Vitamin A & D Oint Ud Foilpak) 1 ea TOP Q6 [facility] Last Admin: 12/10/16 12:57 Dose: Not Given - Labs Labs: 12/10/16 14:00 12/10/16 06:20 PT 11.0 Seconds (9.9-11.8) 12/09/16 05:00 INR 1.02 (0.93-1.08) 12/09/16 05:00 APTT 27.7 Seconds (23.7-30.8) 12/09/16 05:00 - Constitutional Appears: Agitated (slightly agitated) - Head Exam Head Exam: ATRAUMATIC, NORMOCEPHALIC - Eye Exam Eye Exam: EOMI, Normal appearance Pupil Exam: NORMAL ACCOMODATION, PERRL - Respiratory Exam Respiratory Exam: Decreased Breath Sounds, NORMAL BREATHING PATTERN - Cardiovascular Exam Cardiovascular Exam: REGULAR RHYTHM, +S1, +S2 - GI/Abdominal Exam GI & Abdominal Exam: Soft, Tenderness Additional comments: surgical abdominal wound with betadine present with SONU with serosanguious drainage from RLQ and pink stoma on LLQ - Exam External exam: absent: Ecchymosis, Lesions - Extremities Exam Extremities Exam: Normal Capillary Refill. absent: Tenderness - Neurological Exam Neurological Exam: Alert, Awake - Skin Skin Exam: Intact, Warm Assessment and Plan - Assessment and Plan (Free Text) Plan: 71 yo F with PMHx of valvular heart disease, GI bleed, and breast cancer presenting with hematochezia. s/p POD# 3 L hemicolectomy, extubated yesterday Plan: GI bleed/hematochezia s/p LT hemicolectomy, End colostomy day 3 s/p multiple pRBC infusions Hemoglobin 9.5 today monitor for continued bleeding CBC daily, continue to monitor CT shows diverticulosis, esophagitis, cystic structure 2.2 cm pancreatic neck GI consult. Dr. Kam. recs appreciated Colonoscopy 12/05 showed diverticula throughout colon, small amount of blood in terminal ileum. No active bleeding appreciated (see full report) Surgery following, Dr. Skelton, appreciate recs protonix borderline leukocytosis, pt is currently afebrile, not in distress liquid diet as per surgery FS Q6, maintain euglycemia Hx of HTN Coreg started today Hx of HLD continue home statin Hx of valvular heart disease cardio consult. Dr. Barber. recs appreciated Monitor I&O Hypokalemia repleted PPx protonix AE hose <Gaurang Ascencio A - Last Filed: 12/10/16 16:38> Objective - Vital Signs/Intake and Output Vital Signs (last 24 hours): Temp Pulse Resp BP Pulse Ox 97.8 F 110 H 18 95/68 L 100 12/10/16 16:15 12/10/16 12:00 12/10/16 12:00 12/10/16 12:00 12/10/16 12:00 Intake and Output: 12/10/16 12/10/16 06:59 18:59 Intake Total 750 Output Total 560 Balance 190 - Medications Medications: Current Medications Acetaminophen (Tylenol 325mg Tab) 650 mg PO Q4H PRN PRN Reason: Pain, moderate (4-7) Last Admin: 12/04/16 05:51 Dose: 650 mg Atorvastatin Calcium (Lipitor) 20 mg PO DIN [facility] Last Admin: 12/09/16 17:37 Dose: Not Given Benzocaine/Menthol (Cepacol Sore Throat) 1 leo MT Q2H PRN PRN Reason: Sore Throat Last Admin: 12/09/16 20:24 Dose: 1 leo Carvedilol (Coreg) 3.125 mg PO BID [facility] Cefoxitin Sodium 1 gm/ Sodium (Chloride) 100 mls @ 100 mls/hr IV Q8H [facility] PRN Reason: Protocol Last Admin: 12/10/16 14:31 Dose: 100 mls/hr Metronidazole (Flagyl) 100 mls @ 100 mls/hr IVPB Q8 [facility] PRN Reason: Protocol Last Admin: 12/10/16 13:37 Dose: 100 mls/hr Acetaminophen (Ofirmev) 100 mls @ 400 mls/hr IVPB Q6H PRN PRN Reason: Fever >100.3 F Stop: 12/10/16 20:04 Last Admin: 12/08/16 20:15 Dose: 400 mls/hr Dextrose/Sodium Chloride (Dextrose 5%/0.9% Ns 1000 Ml) 1,000 mls @ 75 mls/hr IV .[id number] [facility] Last Admin: 12/10/16 15:30 Dose: 75 mls/hr Morphine Sulfate (Morphine) 2 mg IM Q4H PRN PRN Reason: Pain, moderate (4-7) Last Admin: 12/10/16 14:06 Dose: 2 mg Ondansetron HCl (Zofran Inj) 4 mg IVP Q4H PRN PRN Reason: Nausea/Vomiting Last Admin: 12/10/16 07:29 Dose: 4 mg Pantoprazole Sodium (Protonix Inj) 40 mg IVP DAILY [facility] Last Admin: 12/10/16 09:05 Dose: 40 mg Vitamin A (Vitamin A & D Oint Ud Foilpak) 1 ea TOP Q6 [facility] Last Admin: 12/10/16 12:57 Dose: Not Given - Labs Labs: 12/10/16 14:00 12/10/16 06:20 PT 11.0 Seconds (9.9-11.8) 12/09/16 05:00 INR 1.02 (0.93-1.08) 12/09/16 05:00 APTT 27.7 Seconds (23.7-30.8) 12/09/16 05:00 Attending/Attestation - Attestation I have personally seen and examined this patient.: Yes I have fully participated in the care of the patient.: Yes I have reviewed all pertinent clinical information, including history, physical exam and plan: Yes Notes (Text): 12/10/16 16:36 71 year old female with past medical history of valvular heart disease, breast cancer, and GIB presented with hematochezia and anemia. She has received multiple blood transfusions since admission. CT and colonoscopy were reviewed as above. She is being followed by GI and surgery. She is s/p hemicolectomy.. Overnight events reviewed. She is on liquid diet for now. If vomiting persists she may need to be NPO. Will follow up with surgery recommendations. Continue to monitor cbc closely and transfuse as needed. Continue with antibiotics as per surgery. Cardiology is also following patient for history of valvular heart disease and hypertension. Will replete and repeat potassium. Gaurang Asecncio MD Hospitalist.
[2016-12-10] MEDS ORDERED: Oxycodone/Acetaminophen 5/325 mg Tab PO PRN (22:06)
[2016-12-10] MEDS ORDERED: HYDROmorphone 0.5 mg/0.5 ml ISec IVP PRN ×2 (22:08→22:09)
[2016-12-11] MEDS ORDERED: Alum-Mag Hydrox-Simethicone Susp (30 mL) PO ONE (00:34)
--- NOTE | 2016-12-11 00:51 | PN ---
DATE: 12/10/2016 ADDENDUM This patient was seen and evaluated earlier, discussed with the patient's daughter who was at bedside. There was a small amount dark brown fluid in the colostomy bag. LABORATORY DATA: Hemoglobin remains stable in at 10.9. This is an addendum to the GI progress report dictated by CONRAD Presley. We will continue to closely follow up the patient and suggest further recommendation based on the clinical course. Kain Kam MD cc: [id number] TT: 12/11/2016 00:51:38 Confirmation # [id number] Dictation # [id number] MTDD
[2016-12-11] MEDS: metroNIDAZOLE IV 500 mg/100 ml 100 ML IVPB SCH ×3 (06:09→22:04)
[2016-12-11] MEDS: cefOXitin Sodium 1 GM in Sodium Chloride 0.9% 100 ML IV SCH ×3 (06:10→22:04)
[2016-12-11 06:40] LABS: ADD MANUAL DIFF? NO
[2016-12-11 06:50] LABS: BASO # 0.02 K/mm3 (0.0-2.0); BASO % 0.2 % (0.0-3.0); EOS % 0.3 % (1.5-5.0); GRAN # 7.51 (1.4-6.5); GRAN % 85.7 % (50.0-68.0); HEMATOCRIT 27.5 % (36.0-48.0); LYMPH # 0.6 (1.2-3.4); MEAN CORPUSCULAR HEMOGLOBIN 30.1 pg (25.0-35.0); MEAN CORPUSCULAR HGB CONC 33.8 g/dl (31.0-37.0); MONO # 0.6 (0.1-0.6); MONO % 6.8 % (1.0-6.0); PLATELET COUNT 196 10^3/uL (120.0-450.0); RED CELL DISTRIBUTION WIDTH 15.7 % (11.5-14.5); WHITE BLOOD COUNT 8.8 10^3/ul (4.5-11.0)
[2016-12-11 07:03] LABS: ALB/GLOB RATIO 0.9 (1.1-1.8); ALKALINE PHOSPHATASE 54 U/L (38-133); ALT/SGPT 30 U/L (7-56); AST/SGOT 23 U/L (15-39); BILIRUBIN,TOTAL 0.5 mg/dL (0.2-1.3); BLOOD UREA NITROGEN 7 mg/dL (7-21); CARBON DIOXIDE 32 mmol/L (21-33); CHLORIDE 99 mmol/L (98-107); GFR AFRICAN-AMERICAN > 60; GLUCOSE,RANDOM 125 mg/dL (70-110); POTASSIUM 3.7 mmol/L (3.6-5.0); SODIUM 135 mmol/L (132-148); TOTAL PROTEIN 5.3 g/dL (5.8-8.3)
--- NOTE | 2016-12-11 07:24 | RAD ---
HISTORY: r/o ileus vs SBO COMPARISON: No prior. FINDINGS: BOWEL: Left lower quadrant stoma has been placed a [place] draining tube is also in place its tip projecting near the left stoma. Postop skin sutures are present. There is scattered gas within currently: And small bowel loops. No dilated small large bowel loops are noted. There is paucity of gas filled left abdominal bowel loops. BONES: Bilateral hip osteoarthrosis and diffuse thoracolumbar spondylosis. OTHER FINDINGS: As above IMPRESSION: Recent postop changes. No suspect small bowel obstruction or radiographic ileus apparent. Continued clinical follow-up recommended
--- NOTE | 2016-12-11 07:35 | RAD ---
HISTORY: NGT placement COMPARISON: 12/09/2016 2:45 p.m. FINDINGS: LUNGS: No active pulmonary disease. Shallow lung volumes PLEURA: No significant pleural effusion identified, no pneumothorax apparent. CARDIOVASCULAR: Left ventricular enlargement configuration suggested unchanged OSSEOUS STRUCTURES: Diffuse thoracolumbar spondylosis VISUALIZED UPPER ABDOMEN: Normal. OTHER FINDINGS: A right internal jugular vein central line with its tip in the superior vena cava is noted. A NG tube is inserted its tip is in the gastric cardia region. EKG leads in place IMPRESSION: No interval pathology noted. Support lines inserted- placements as above
[2016-12-11] MEDS: Dextrose 5%/0.9% NS 1,000 ML IV SCH ×2 (08:35→17:46)
--- NOTE | 2016-12-11 09:37 | PN ---
DATE: 12/11/2016 SUBJECTIVE: The patient is seen lying in bed in the ICU. She has been nauseous and has had some vom iting. NG tube is in place. She has had occasional episodes of brief runs of SVT. She denies any c hest pain or dyspnea. CURRENT MEDICATIONS: Include cefoxitin, carvedilol 3.125 mg b.i.d., Flagyl, Lipitor 20 mg daily, Pro tonix and Zofran p.r.n. OBJECTIVE: GENERAL: She is a middle-aged woman who appears mildly uncomfortable due to her nausea. VITAL SIGNS: Blood pressure is 138/80 with a pulse of 90 in sinus. Respirations are 16. She is afe brile. HEENT: No JVD. CHEST: Bilateral scattered rhonchi. HEART: PMI displaced laterally. Systolic murmur at the apex. ABDOMEN: Soft. Bowel sounds are absent. EXTREMITIES: No edema. SKIN: Warm and dry. DIAGNOSTIC DATA: White count is 8.8, hemoglobin and hematocrit 9.3 and 27.5 with a platelet count of 196,000. Potassium 3.7, BUN and creatinine are 7 and 0.5. IMPRESSION: 1. Status post partial colectomy for diverticular bleeding with colostomy. 2. Chronic severe mitral regurgitation. 3. Postoperative ileus. RECOMMENDATIONS: Oral carvedilol will be discontinued and IV metoprolol resumed for now. Ambulation was encouraged. Further recommendations will be made based upon her clinical course. We will follo w as needed. Efraín Quintero MD cc: [id number] TT: 12/11/2016 09:36:50 Confirmation # [id number] Dictation # [id number] tn
[2016-12-11] MEDS: Metoprolol 1 mg/ml Inj IVP SCH ×3 (09:57→22:05)
--- NOTE | 2016-12-11 11:55 | CP.PCM.PN ---
<NéstorAminta - Last Filed: 12/11/16 15:15> Subjective - Date & Time of Evaluation Date of Evaluation: 12/11/16 Time of Evaluation: 09:10 - Subjective Subjective: Pt seen and evaluated at the bedside. Pt denies SOB, and continues to have abdominal pain. AM episode (and one prior from PM before) of bilious vomiting, so NGT on suction was placed by sx team. Objective - Vital Signs/Intake and Output Vital Signs (last 24 hours): Temp Pulse Resp BP Pulse Ox 98.6 F 92 H 26 H 99/64 L 98 12/11/16 11:52 12/11/16 11:49 12/11/16 11:49 12/11/16 11:50 12/11/16 11:49 Intake and Output: 12/11/16 12/11/16 06:59 18:59 Intake Total 1200 375 Output Total 1395 550 Balance -195 -175 - Medications Medications: Current Medications Acetaminophen (Tylenol 325mg Tab) 650 mg PO Q4H PRN PRN Reason: Pain, moderate (4-7) Last Admin: 12/04/16 05:51 Dose: 650 mg Atorvastatin Calcium (Lipitor) 20 mg PO DIN [facility] Last Admin: 12/10/16 17:24 Dose: Not Given Benzocaine/Menthol (Cepacol Sore Throat) 1 leo MT Q2H PRN PRN Reason: Sore Throat Last Admin: 12/09/16 20:24 Dose: 1 leo Carvedilol (Coreg) 3.125 mg PO BID [facility] Last Admin: 12/10/16 17:18 Dose: 3.125 mg Cefoxitin Sodium 1 gm/ Sodium (Chloride) 100 mls @ 100 mls/hr IV Q8H [facility] PRN Reason: Protocol Last Admin: 12/11/16 06:10 Dose: 100 mls/hr Metronidazole (Flagyl) 100 mls @ 100 mls/hr IVPB Q8 [facility] PRN Reason: Protocol Last Admin: 12/11/16 06:09 Dose: 100 mls/hr Dextrose/Sodium Chloride (Dextrose 5%/0.9% Ns 1000 Ml) 1,000 mls @ 75 mls/hr IV .[id number] [facility] Last Admin: 12/11/16 08:35 Dose: 75 mls/hr Ketorolac Tromethamine (Toradol) 30 mg IVP Q6H PRN PRN Reason: Pain, moderate (4-7) Metoprolol Tartrate (Lopressor) 5 mg IVP Q6H [facility] Last Admin: 12/11/16 09:57 Dose: 5 mg Ondansetron HCl (Zofran Inj) 4 mg IVP Q6H PRN PRN Reason: Nausea/Vomiting Pantoprazole Sodium (Protonix Inj) 40 mg IVP DAILY [facility] Last Admin: 12/11/16 09:57 Dose: 40 mg Vitamin A (Vitamin A & D Oint Ud Foilpak) 1 ea TOP Q6 [facility] Last Admin: 12/10/16 17:19 Dose: 1 ea - Labs Labs: 12/11/16 05:30 12/11/16 05:30 PT 11.0 Seconds (9.9-11.8) 12/09/16 05:00 INR 1.02 (0.93-1.08) 12/09/16 05:00 APTT 27.7 Seconds (23.7-30.8) 12/09/16 05:00 - Constitutional Appears: No Acute Distress - Head Exam Head Exam: ATRAUMATIC, NORMOCEPHALIC Additional comments: NGT in place with green fluid draining - Eye Exam Eye Exam: EOMI, Normal appearance Pupil Exam: NORMAL ACCOMODATION, PERRL - Respiratory Exam Respiratory Exam: Clear to Ausculation Bilateral, NORMAL BREATHING PATTERN - Cardiovascular Exam Cardiovascular Exam: Tachycardia, +S1, +S2 - GI/Abdominal Exam GI & Abdominal Exam: Soft, Tenderness Additional comments: surgical scar with nicko, c/d/i. Colostomy bag in place with scan brown discharge seen. SONU drain draining sanguinous fluid. - Exam External exam: absent: Ecchymosis, Erythema - Neurological Exam Neurological Exam: Alert, Awake - Psychiatric Exam Psychiatric exam: Normal Affect, Normal Mood - Skin Skin Exam: Normal Color, Warm Assessment and Plan - Assessment and Plan (Free Text) Plan: 71 yo F with PMHx of valvular heart disease, GI bleed, and breast cancer presenting with hematochezia. s/p POD# 4 L hemicolectomy, extubated 3 days prior: Plan: GI bleed/hematochezia s/p LT hemicolectomy, End colostomy day 4 s/p multiple pRBC infusions Hemoglobin 9.3 today monitor for continued bleeding CBC daily, continue to monitor CT shows diverticulosis, esophagitis, cystic structure 2.2 cm pancreatic neck GI consult. Dr. Kam. recs appreciated Colonoscopy 12/05 showed diverticula throughout colon, small amount of blood in terminal ileum. No active bleeding appreciated (see full report) Surgery following, Dr. Skelton, appreciate recs protonix No leukocytosis, pt is currently afebrile, not in distress NPO as per GI rec FS Q6, maintain euglycemia Currently in ICU, w/transfer order in for telemetry Hx of HTN Coreg Hx of HLD continue home statin Hx of valvular heart disease cardio consult. Dr. Barber. recs appreciated Monitor I&O Hypokalemia 3.7 today PPx protonix AE hose <Gaurang Ascencio A - Last Filed: 12/12/16 06:47> Objective - Vital Signs/Intake and Output Vital Signs (last 24 hours): Temp Pulse Resp BP Pulse Ox 98.3 F 82 20 134/70 93 L 12/12/16 00:01 12/12/16 04:15 12/12/16 00:01 12/12/16 04:15 12/12/16 00:01 Intake and Output: 12/11/16 12/12/16 18:59 06:59 Intake Total 650 0 Output Total 780 1001 Balance -130 -1001 - Medications Medications: Current Medications Acetaminophen (Tylenol 325mg Tab) 650 mg PO Q4H PRN PRN Reason: Pain, moderate (4-7) Last Admin: 12/04/16 05:51 Dose: 650 mg Acetaminophen (Tylenol 650 Mg Supp) 650 mg RC Q4H PRN PRN Reason: Fever >100.4 F Atorvastatin Calcium (Lipitor) 20 mg PO DIN [facility] Last Admin: 12/11/16 17:16 Dose: Not Given Benzocaine/Menthol (Cepacol Sore Throat) 1 leo MT Q2H PRN PRN Reason: Sore Throat Last Admin: 12/09/16 20:24 Dose: 1 leo Carvedilol (Coreg) 3.125 mg PO BID [facility] Last Admin: 12/10/16 17:18 Dose: 3.125 mg Cefoxitin Sodium 1 gm/ Sodium (Chloride) 100 mls @ 100 mls/hr IV Q8H [facility] PRN Reason: Protocol Last Admin: 12/12/16 06:06 Dose: 100 mls/hr Metronidazole (Flagyl) 100 mls @ 100 mls/hr IVPB Q8 [facility] PRN Reason: Protocol Last Admin: 12/12/16 06:05 Dose: 100 mls/hr Dextrose/Sodium Chloride (Dextrose 5%/0.9% Ns 1000 Ml) 1,000 mls @ 75 mls/hr IV .[id number] [facility] Last Admin: 12/12/16 03:29 Dose: 75 mls/hr Ketorolac Tromethamine (Toradol) 30 mg IVP Q6H PRN PRN Reason: Pain, moderate (4-7) Metoprolol Tartrate (Lopressor) 5 mg IVP Q6H [facility] Last Admin: 12/12/16 04:15 Dose: 5 mg Ondansetron HCl (Zofran Inj) 4 mg IVP Q6H PRN PRN Reason: Nausea/Vomiting Pantoprazole Sodium (Protonix Inj) 40 mg IVP DAILY [facility] Last Admin: 12/11/16 09:57 Dose: 40 mg Vitamin A (Vitamin A & D Oint Ud Foilpak) 1 ea TOP Q6 [facility] Last Admin: 12/11/16 22:08 Dose: Not Given - Labs Labs: 12/11/16 15:20 12/11/16 05:30 PT 10.6 Seconds (9.9-11.8) 12/11/16 15:20 INR 0.98 (0.93-1.08) 12/11/16 15:20 APTT 23.8 Seconds (23.7-30.8) 12/11/16 15:20 Attending/Attestation - Attestation I have personally seen and examined this patient.: Yes I have fully participated in the care of the patient.: Yes I have reviewed all pertinent clinical information, including history, physical exam and plan: Yes Notes (Text): 12/11/16 71 year old female with past medical history of valvular heart disease, breast cancer, and GIB presented with hematochezia and anemia. She has received multiple blood transfusions since admission. CT and colonoscopy were reviewed as above. She is being followed by GI and surgery. She is s/p hemicolectomy. Currently she is with NGT. H/H is stable. 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 She is comfortable, out of bed to chair. Patient and family are concerned regarding recent fall few days prior. Will requested for PT evaluation. Out of bed to chair with assistance. May need 1: 1 for safety and fall precautions. Cardiology is also following patient for history of valvular heart disease and hypertension. Gaurang Ascencio MD Hospitalist.
--- NOTE | 2016-12-11 12:00 | PN ---
DATE: 12/11/2016 SUBJECTIVE: Seen and examined at the bedside earlier today. The patient had episodes of vomiting la st night and also this morning. The NG tube was reinserted and she came back 300 mL of greenis h fluid. The patient is out of bed to the chair. She has some postop discomfort, but is in no acute distress. The patient, as per surgery, is now off her morphine and Dilaudid has been discontinued a nd she has been started on Toradol. No reports of any fever or chills. VITAL SIGNS: Temperature is 97.4, blood pressure is 93/52, her pulse rate 79, respirations 19. LABORATORY DATA: Today, WBC 8.8, H and H is 9.3 and 27.5, platelets of 196%. Chem: Sodium is 135, K is 3.7, BUN 7, creatinine is 0.5. LFTs are within normal limits. She went for a chest x-ray today and that showed no interval pathology noted. Support lines started, placement as above. Shows NG t ube is inserted. Its tip is in the gastric cardial region. She had an abdominal x-ray done last nig ht and this is showing recent postop changes. No small-bowel obstruction or radiographic ileus appar ent. PHYSICAL EXAMINATION: HEENT: Sclerae are anicteric. NECK: Supple. CARDIAC: S1, S2. LUNGS: Decreased breath sounds, has some scattered rhonchi, but no wheezing. ABDOMEN: With bowel sounds. It is soft. She has an incision with nicko open to air. Positive SONU drain and a colostomy bag with dark brown fluid. ASSESSMENT: Status post gastrointestinal bleed, likely secondary from diverticular disease, long his tory of diverticulosis, diverticulitis. She is status post left hemicolectomy with colostomy. Now s he is having intractable nausea and vomiting. Abdominal x-ray negative for small-bowel obstruction o r ileus, but nasogastric tube has been reinserted with 300 mL return of greenish fluid. Postop patie nt was having fevers. Blood cultures are negative x 1. Anemia secondary to the gastrointestinal ble ed, looks like patient has postoperative ileus, history of chronic severe mitral regurgitation. PLAN: N.p.o. She has NG tube to low intermittent suction. Out of bed to the chair. Continue to mon itor H and H. Continue GI prophylaxis. She is on Protonix IV daily, is on IV antibiotics, Flagyl, ce foxitin. She is on IV fluids for hydration. She is also on Lopressor and Zofran p.r.n. as per surge ry, cardiology. The patient is seen and case discussed with Dr. Kam. Paty MARTINES cc: [id number] TT: 12/11/2016 12:00:05 Confirmation # [id number] Dictation # [id number]
[2016-12-11] MEDS: Vitamins A & D Oint UD Foilpak TOP SCH ×3 (12:12→22:08)
[2016-12-11 15:37] LABS: ADD MANUAL DIFF? NO
[2016-12-11 15:51] LABS: BASO # 0.03 K/mm3 (0.0-2.0); BASO % 0.3 % (0.0-3.0); EOS # 0.1 (0.0-0.7); EOS % 1.2 % (1.5-5.0); GRAN # 7.73 (1.4-6.5); GRAN % 79.9 % (50.0-68.0); HEMATOCRIT 29.4 % (36.0-48.0); LYMPH # 1.1 (1.2-3.4); LYMPH % 11.4 % (22.0-35.0); MEAN CELL VOLUME 88.8 fL (80.0-105.0); MEAN CORPUSCULAR HEMOGLOBIN 29.3 pg (25.0-35.0); MEAN PLATELET VOLUME 10.2 fl (7.0-11.0); MONO # 0.7 (0.1-0.6); MONO % 7.2 % (1.0-6.0); PLATELET COUNT 224 10^3/uL (120.0-450.0); RED CELL DISTRIBUTION WIDTH 15.6 % (11.5-14.5); WHITE BLOOD COUNT 9.7 10^3/ul (4.5-11.0)
[2016-12-11 16:04] LABS: INR 0.98 (0.93-1.08); PARTIAL THROMBOPLASTIN TIME 23.8 Seconds (23.7-30.8)
--- NOTE | 2016-12-11 18:51 | CP.PCM.PN ---
<Igor Wesley - Last Filed: 12/11/16 18:48> Subjective - Date & Time of Evaluation Date of Evaluation: 12/11/16 Time of Evaluation: 07:48 - Subjective Subjective: General Surgery Progress Note For Dr. Lynn This 71F was seen and examined this AM at bedside. She reports no acute events overnight. This morning we repaced the NGT durring rounds. Pt had 1200cc of bilious emesis out. She denies any fever, chills, chest pain, SOB nausea, Objective - Vital Signs/Intake and Output Vital Signs (last 24 hours): Temp Pulse Resp BP Pulse Ox 97.9 F 85 20 101/51 L 95 12/11/16 17:30 12/11/16 17:30 12/11/16 17:30 12/11/16 17:30 12/11/16 16:57 Intake and Output: 12/11/16 12/11/16 06:59 18:59 Intake Total 1200 650 Output Total 1395 780 Balance -195 -130 - Medications Medications: Current Medications Acetaminophen (Tylenol 325mg Tab) 650 mg PO Q4H PRN PRN Reason: Pain, moderate (4-7) Last Admin: 12/04/16 05:51 Dose: 650 mg Acetaminophen (Tylenol 650 Mg Supp) 650 mg RC Q4H PRN PRN Reason: Fever >100.4 F Atorvastatin Calcium (Lipitor) 20 mg PO DIN [facility] Last Admin: 12/11/16 17:16 Dose: Not Given Benzocaine/Menthol (Cepacol Sore Throat) 1 leo MT Q2H PRN PRN Reason: Sore Throat Last Admin: 12/09/16 20:24 Dose: 1 leo Carvedilol (Coreg) 3.125 mg PO BID [facility] Last Admin: 12/10/16 17:18 Dose: 3.125 mg Cefoxitin Sodium 1 gm/ Sodium (Chloride) 100 mls @ 100 mls/hr IV Q8H [facility] PRN Reason: Protocol Last Admin: 12/11/16 14:35 Dose: 100 mls/hr Metronidazole (Flagyl) 100 mls @ 100 mls/hr IVPB Q8 [facility] PRN Reason: Protocol Last Admin: 12/11/16 13:21 Dose: 100 mls/hr Dextrose/Sodium Chloride (Dextrose 5%/0.9% Ns 1000 Ml) 1,000 mls @ 75 mls/hr IV .[id number] [facility] Last Admin: 12/11/16 17:46 Dose: 75 mls/hr Ketorolac Tromethamine (Toradol) 30 mg IVP Q6H PRN PRN Reason: Pain, moderate (4-7) Metoprolol Tartrate (Lopressor) 5 mg IVP Q6H [facility] Last Admin: 12/11/16 15:30 Dose: Not Given Ondansetron HCl (Zofran Inj) 4 mg IVP Q6H PRN PRN Reason: Nausea/Vomiting Pantoprazole Sodium (Protonix Inj) 40 mg IVP DAILY [facility] Last Admin: 12/11/16 09:57 Dose: 40 mg Vitamin A (Vitamin A & D Oint Ud Foilpak) 1 ea TOP Q6 [facility] Last Admin: 12/11/16 17:16 Dose: Not Given - Labs Labs: 12/11/16 15:20 12/11/16 05:30 PT 10.6 Seconds (9.9-11.8) 12/11/16 15:20 INR 0.98 (0.93-1.08) 12/11/16 15:20 APTT 23.8 Seconds (23.7-30.8) 12/11/16 15:20 - Constitutional Appears: Non-toxic, No Acute Distress - Head Exam Head Exam: ATRAUMATIC, NORMOCEPHALIC - Eye Exam Eye Exam: EOMI, Normal appearance - ENT Exam ENT Exam: Mucous Membranes Moist, Normal Exam - Respiratory Exam Respiratory Exam: NORMAL BREATHING PATTERN - Cardiovascular Exam Cardiovascular Exam: +S1, +S2 - GI/Abdominal Exam GI & Abdominal Exam: Soft. absent: Guarding, Rigid, Tenderness Additional comments: Midline inscision painted with iodine stoma pink and patent - Neurological Exam Neurological Exam: Alert, Awake - Psychiatric Exam Psychiatric exam: Normal Affect, Normal Mood - Skin Skin Exam: Dry, Intact Assessment and Plan - Assessment and Plan (Free Text) Assessment: This is a 71F with a PMH of Breast CA and Diverticulosis who presented with a GI bleed who is POD#4 s/p left colectomy and transverse colostomy. Wound care: Driggs with betadine twice daily Monitor ostomy output NGT to suction Toradol for pain no narcotics Will discuss with Dr. Thao Wesley PGY-1 <Cirilo Osuna - Last Filed: 12/12/16 08:30> Subjective - Date & Time of Evaluation Date of Evaluation: 12/11/16 Time of Evaluation: 15:15 Objective - Vital Signs/Intake and Output Vital Signs (last 24 hours): Temp Pulse Resp BP Pulse Ox 98.0 F 72 20 149/66 98 12/12/16 06:00 12/12/16 06:00 12/12/16 06:00 12/12/16 06:00 12/12/16 06:00 Intake and Output: 12/12/16 12/12/16 06:59 18:59 Intake Total 0 Output Total 1001 Balance -1001 - Medications Medications: Current Medications Acetaminophen (Tylenol 325mg Tab) 650 mg PO Q4H PRN PRN Reason: Pain, moderate (4-7) Last Admin: 12/04/16 05:51 Dose: 650 mg Acetaminophen (Tylenol 650 Mg Supp) 650 mg RC Q4H PRN PRN Reason: Fever >100.4 F Atorvastatin Calcium (Lipitor) 20 mg PO DIN [facility] Last Admin: 12/11/16 17:16 Dose: Not Given Benzocaine/Menthol (Cepacol Sore Throat) 1 leo MT Q2H PRN PRN Reason: Sore Throat Last Admin: 12/09/16 20:24 Dose: 1 leo Carvedilol (Coreg) 3.125 mg PO BID [facility] Last Admin: 12/10/16 17:18 Dose: 3.125 mg Cefoxitin Sodium 1 gm/ Sodium (Chloride) 100 mls @ 100 mls/hr IV Q8H [facility] PRN Reason: Protocol Last Admin: 12/12/16 06:06 Dose: 100 mls/hr Metronidazole (Flagyl) 100 mls @ 100 mls/hr IVPB Q8 [facility] PRN Reason: Protocol Last Admin: 12/12/16 06:05 Dose: 100 mls/hr Dextrose/Sodium Chloride (Dextrose 5%/0.9% Ns 1000 Ml) 1,000 mls @ 75 mls/hr IV .[id number] [facility] Last Admin: 12/12/16 03:29 Dose: 75 mls/hr Potassium Chloride (Potassium Chloride 20 Meq/100 Ml) 100 mls @ 50 mls/hr IVPB Q2H [facility] Stop: 12/12/16 12:29 Ketorolac Tromethamine (Toradol) 30 mg IVP Q6H PRN PRN Reason: Pain, moderate (4-7) Metoprolol Tartrate (Lopressor) 5 mg IVP Q6H [facility] Last Admin: 12/12/16 04:15 Dose: 5 mg Ondansetron HCl (Zofran Inj) 4 mg IVP Q6H PRN PRN Reason: Nausea/Vomiting Pantoprazole Sodium (Protonix Inj) 40 mg IVP DAILY [facility] Last Admin: 12/11/16 09:57 Dose: 40 mg Vitamin A (Vitamin A & D Oint Ud Foilpak) 1 ea TOP Q6 [facility] Last Admin: 12/11/16 22:08 Dose: Not Given - Labs Labs: 12/12/16 06:20 12/12/16 06:20 PT 10.6 Seconds (9.9-11.8) 12/11/16 15:20 INR 0.98 (0.93-1.08) 12/11/16 15:20 APTT 23.8 Seconds (23.7-30.8) 12/11/16 15:20 Assessment and Plan - Assessment and Plan (Free Text) Assessment: Patient was seen and examined by me. I agree with assessment and plan as per resident's note.
--- NOTE | 2016-12-11 23:51 | PN ---
DATE: 12/11/2016 ADDENDUM This is an addendum to the GI progress report dictated by Paty Rao NP. The patient was seen and e valuated earlier. The patient has NG tube now. Had significant NG output initially, now comfortable . LABORATORY DATA: Hemoglobin 9.7, hematocrit 29.4. IMPRESSION: This is a 71-year-old patient with status post left hemicolectomy, Chance's procedure for massive gastrointestinal bleeding. Postoperative course. RECOMMENDATIONS: Followup of the hemoglobin and hematocrit, postop as per surgery and continue to cl osely monitor her care. Thank you very much for allowing me to participate in the care of the patient. Kain Kam MD cc: [id number] TT: 12/11/2016 23:50:02 Confirmation # [id number] Dictation # [id number]
[2016-12-12] MEDS: Dextrose 5%/0.9% NS 1,000 ML IV SCH ×3 (03:29→22:16)
[2016-12-12] MEDS: Metoprolol 1 mg/ml Inj IVP SCH ×4 (04:15→22:19)
[2016-12-12] MEDS: metroNIDAZOLE IV 500 mg/100 ml 100 ML IVPB SCH ×3 (06:05→22:18)
[2016-12-12] MEDS: cefOXitin Sodium 1 GM in Sodium Chloride 0.9% 100 ML IV SCH ×3 (06:06→22:18)
[2016-12-12 06:52] LABS: ADD MANUAL DIFF? NO
[2016-12-12 07:10] LABS: BASO # 0.04 K/mm3 (0.0-2.0); BASO % 0.5 % (0.0-3.0); EOS # 0.2 (0.0-0.7); EOS % 2.6 % (1.5-5.0); GRAN # 5.69 (1.4-6.5); HEMATOCRIT 28.5 % (36.0-48.0); LYMPH % 12.6 % (22.0-35.0); MEAN CELL VOLUME 89.6 fL (80.0-105.0); MEAN CORPUSCULAR HEMOGLOBIN 29.2 pg (25.0-35.0); MEAN CORPUSCULAR HGB CONC 32.6 g/dl (31.0-37.0); MEAN PLATELET VOLUME 10.2 fl (7.0-11.0); MONO # 0.8 (0.1-0.6); MONO % 10.3 % (1.0-6.0); PLATELET COUNT 210 10^3/uL (120.0-450.0); RED CELL DISTRIBUTION WIDTH 15.5 % (11.5-14.5); WHITE BLOOD COUNT 7.7 10^3/ul (4.5-11.0)
[2016-12-12 07:20] LABS: ALB/GLOB RATIO 0.8 (1.1-1.8); ALKALINE PHOSPHATASE 48 U/L (38-133); ALT/SGPT 34 U/L (7-56); AST/SGOT 30 U/L (15-39); BILIRUBIN,TOTAL 0.5 mg/dL (0.2-1.3); BLOOD UREA NITROGEN 5 mg/dL (7-21); CALCIUM 7.9 mg/dL (8.4-10.5); CARBON DIOXIDE 34 mmol/L (21-33); CHLORIDE 101 mmol/L (98-107); GFR AFRICAN-AMERICAN > 60; GLUCOSE,RANDOM 103 mg/dL (70-110); SODIUM 143 mmol/L (132-148); TOTAL PROTEIN 5.3 g/dL (5.8-8.3)
--- NOTE | 2016-12-12 08:11 | CP.PCM.PN ---
Subjective - Date & Time of Evaluation Date of Evaluation: 12/12/16 Time of Evaluation: 08:00 - Subjective Subjective: Stable on 2R. No CP or SOB. NGT in place. depressed. V/S noted. RSR PE: Lungs: rhonchi Cor.: S1S2, sys murmur Abd.: soft. Colostomy. Ext.: no edema Neuro.: alert I/O= 650/1781 Labs noted. H/H 9.3/28.5. BMP OK but K+ pending. CXR 12/11: no interval pathology. ECG 12/09 noted: S.Tachy., LAHB, PRWP, STTW changes, No change except slower rate. Objective - Vital Signs/Intake and Output Vital Signs (last 24 hours): Temp Pulse Resp BP Pulse Ox 98.0 F 72 20 149/66 98 12/12/16 06:00 12/12/16 06:00 12/12/16 06:00 12/12/16 06:00 12/12/16 06:00 Intake and Output: 12/12/16 12/12/16 06:59 18:59 Intake Total 0 Output Total 1001 Balance -1001 - Medications Medications: Current Medications Acetaminophen (Tylenol 325mg Tab) 650 mg PO Q4H PRN PRN Reason: Pain, moderate (4-7) Last Admin: 12/04/16 05:51 Dose: 650 mg Acetaminophen (Tylenol 650 Mg Supp) 650 mg RC Q4H PRN PRN Reason: Fever >100.4 F Atorvastatin Calcium (Lipitor) 20 mg PO DIN [facility] Last Admin: 12/11/16 17:16 Dose: Not Given Benzocaine/Menthol (Cepacol Sore Throat) 1 leo MT Q2H PRN PRN Reason: Sore Throat Last Admin: 12/09/16 20:24 Dose: 1 leo Carvedilol (Coreg) 3.125 mg PO BID [facility] Last Admin: 12/10/16 17:18 Dose: 3.125 mg Cefoxitin Sodium 1 gm/ Sodium (Chloride) 100 mls @ 100 mls/hr IV Q8H [facility] PRN Reason: Protocol Last Admin: 12/12/16 06:06 Dose: 100 mls/hr Metronidazole (Flagyl) 100 mls @ 100 mls/hr IVPB Q8 [facility] PRN Reason: Protocol Last Admin: 12/12/16 06:05 Dose: 100 mls/hr Dextrose/Sodium Chloride (Dextrose 5%/0.9% Ns 1000 Ml) 1,000 mls @ 75 mls/hr IV .[id number] [facility] Last Admin: 12/12/16 03:29 Dose: 75 mls/hr Ketorolac Tromethamine (Toradol) 30 mg IVP Q6H PRN PRN Reason: Pain, moderate (4-7) Metoprolol Tartrate (Lopressor) 5 mg IVP Q6H [facility] Last Admin: 12/12/16 04:15 Dose: 5 mg Ondansetron HCl (Zofran Inj) 4 mg IVP Q6H PRN PRN Reason: Nausea/Vomiting Pantoprazole Sodium (Protonix Inj) 40 mg IVP DAILY [facility] Last Admin: 12/11/16 09:57 Dose: 40 mg Vitamin A (Vitamin A & D Oint Ud Foilpak) 1 ea TOP Q6 [facility] Last Admin: 12/11/16 22:08 Dose: Not Given - Labs Labs: 12/12/16 06:20 12/12/16 06:20 PT 10.6 Seconds (9.9-11.8) 12/11/16 15:20 INR 0.98 (0.93-1.08) 12/11/16 15:20 APTT 23.8 Seconds (23.7-30.8) 12/11/16 15:20 Assessment and Plan - Assessment and Plan (Free Text) Plan: Assessment: Active LGI Bleeding from Sigmoid Colon S/P extended left hemicolectomy Post-op Ileus H/O diverticulosis with remote GIB Severe MR Mild/mod. LVD, possible related to chemo tx. Breast cancer s/p mastectomy and chemo. HLD GERD Plan: Await K+ GI and Surg. F/U Monitor I/O. High Risk for CHF due to sev. MR and mod. LVD IV metoprolol. Monitor: H/H, labs, I/O, sats., etc. OOB to chair as katrina. Will follow.
[2016-12-12 10:02] LABS: POTASSIUM 2.8 mmol/L (3.6-5.0)
[2016-12-12] MEDS: Potassium Chloride 20 mEq 100 ML IVPB SCH ×2 (10:12→12:02)
--- NOTE | 2016-12-12 11:34 | PN ---
DATE: 12/12/2016 SUBJECTIVE: Seen and examined at the bedside earlier today. She complains of burning, epigastric ar ea. Denies any shortness of breath or chest pain. Remains with NG tube that drained 24 hours of 380 mL. No reports of any vomiting or any overt GI bleed. VITAL SIGNS: Temperature is 98.0, blood pressure 148/78, pulse 87, respirations 20, 98 O2 saturation . LABORATORY DATA: WBC 7.7. Her hemoglobin is 9.3, hematocrit is 28.5, platelets are 310. Sodium is 143, K is down at 2.8, BUN 5, creatinine 0.6. LFTs are within normal limits. PHYSICAL EXAMINATION: HEENT: Sclerae are anicteric. NECK: Supple. CARDIAC: S1, S2. LUNGS: With some mild scattered rhonchi, no wheezing. ABDOMEN: With bowel sounds, soft. Her incision with nicko that is open to air. SONU drain is prese nt and the colostomy with liquid dark brownish, reddish stool. Abdomen with some tenderness in the i ncisional sites, but no rebound or guarding. EXTREMITIES: Lower extremities, no edema. NEUROLOGIC: Awake, alert, oriented. ASSESSMENT: A 71-year-old female with history of diverticulosis, diverticulitis, status post gastroi ntestinal bleed, likely secondary from diverticular disease. She is status post a left hemicolectomy with colostomy, now with postoperative ileus. She has a nasogastric tube also had fevers postoperat david with negative blood cultures and urine culture. Other comorbidities are chronic severe mitral re gurgitation and severe hypokalemia. PLAN: She is getting potassium replacements IV. She remains on IV antibiotics, Flagyl, cefoxitin. She gets Protonix IV daily. We will add an additional Pepcid in the evening. Continue to monitor H and H which have remained stable and monitor her electrolytes. Continue surgical followup. She is a lso being followed by cardiology. The patient was seen and case discussed with Dr. Kam. Paty MARTINES cc: [id number] TT: 12/12/2016 11:33:34 Confirmation # [id number] Dictation # [id number]
[2016-12-12] MEDS: Vitamins A & D Oint UD Foilpak TOP SCH (12:02)
--- NOTE | 2016-12-12 14:33 | CP.PCM.PN ---
<Casey Marx - Last Filed: 12/12/16 16:50> Subjective - Date & Time of Evaluation Date of Evaluation: 12/12/16 Time of Evaluation: 14:29 - Subjective Subjective: SURGERY NOTE FOR DR. OSUNA 71F seen and examined at bedside. NAEON. Patient has minimal pain, denies nausea /vomiting. Currently NPO. Objective - Vital Signs/Intake and Output Vital Signs (last 24 hours): Temp Pulse Resp BP Pulse Ox 98.6 F 68 18 111/55 L 98 12/12/16 12:00 12/12/16 12:00 12/12/16 12:00 12/12/16 12:00 12/12/16 06:00 Intake and Output: 12/12/16 12/12/16 06:59 18:59 Intake Total 0 Output Total 1001 Balance -1001 - Medications Medications: Current Medications Acetaminophen (Tylenol 325mg Tab) 650 mg PO Q4H PRN PRN Reason: Pain, moderate (4-7) Last Admin: 12/04/16 05:51 Dose: 650 mg Acetaminophen (Tylenol 650 Mg Supp) 650 mg RC Q4H PRN PRN Reason: Fever >100.4 F Atorvastatin Calcium (Lipitor) 20 mg PO DIN [facility] Last Admin: 12/11/16 17:16 Dose: Not Given Benzocaine/Menthol (Cepacol Sore Throat) 1 leo MT Q2H PRN PRN Reason: Sore Throat Last Admin: 12/09/16 20:24 Dose: 1 leo Carvedilol (Coreg) 3.125 mg PO BID [facility] Last Admin: 12/10/16 17:18 Dose: 3.125 mg Famotidine (Pepcid) 20 mg IVP HS [facility] Cefoxitin Sodium 1 gm/ Sodium (Chloride) 100 mls @ 100 mls/hr IV Q8H [facility] PRN Reason: Protocol Last Admin: 12/12/16 13:54 Dose: 100 mls/hr Metronidazole (Flagyl) 100 mls @ 100 mls/hr IVPB Q8 [facility] PRN Reason: Protocol Last Admin: 12/12/16 13:55 Dose: 100 mls/hr Dextrose/Sodium Chloride (Dextrose 5%/0.9% Ns 1000 Ml) 1,000 mls @ 75 mls/hr IV .[id number] [facility] Last Admin: 12/12/16 10:13 Dose: 75 mls/hr Ketorolac Tromethamine (Toradol) 30 mg IVP Q6H PRN PRN Reason: Pain, moderate (4-7) Metoprolol Tartrate (Lopressor) 5 mg IVP Q6H [facility] Last Admin: 12/12/16 10:13 Dose: 5 mg Ondansetron HCl (Zofran Inj) 4 mg IVP Q6H PRN PRN Reason: Nausea/Vomiting Pantoprazole Sodium (Protonix Inj) 40 mg IVP DAILY [facility] Last Admin: 12/12/16 10:12 Dose: 40 mg Vitamin A (Vitamin A & D Oint Ud Foilpak) 1 ea TOP Q6 [facility] Last Admin: 12/12/16 12:02 Dose: 1 ea - Labs Labs: 12/12/16 06:20 12/12/16 06:20 PT 10.6 Seconds (9.9-11.8) 12/11/16 15:20 INR 0.98 (0.93-1.08) 12/11/16 15:20 APTT 23.8 Seconds (23.7-30.8) 12/11/16 15:20 - Constitutional Appears: Non-toxic, No Acute Distress - Head Exam Head Exam: ATRAUMATIC - Respiratory Exam Respiratory Exam: Clear to Ausculation Bilateral, NORMAL BREATHING PATTERN - Cardiovascular Exam Cardiovascular Exam: REGULAR RHYTHM, +S1, +S2 - GI/Abdominal Exam GI & Abdominal Exam: Soft. absent: Distended, Firm, Guarding, Rigid, Tenderness , Rebound Additional comments: Ostomy pink and patent, incision clean dry intact - Neurological Exam Neurological Exam: Alert, Awake - Skin Skin Exam: Dry, Intact, Normal Color, Warm Assessment and Plan - Assessment and Plan (Free Text) Assessment: This is a 71F with a PMH of Breast CA and Diverticulosis who presented with a GI bleed who is POD#5 s/p left colectomy and transverse colostomy. - Wound care: [place] with betadine twice daily - Monitor ostomy output - NGT in place, continue to monitor - No narcotics - Places patient out of bed Discussed with Dr. Thao Marx, PGY1 <Cirilo Osuna - Last Filed: 03/19/17 23:34> Objective - Vital Signs/Intake and Output Vital Signs (last 24 hours): Temp Pulse Resp BP Pulse Ox 98 F 78 18 111/67 95 12/17/16 12:00 12/17/16 12:00 12/17/16 12:00 12/17/16 12:00 12/16/16 06:00 - Labs Labs: 12/16/16 06:30 12/16/16 06:30 PT 10.6 Seconds (9.9-11.8) 12/11/16 15:20 INR 0.98 (0.93-1.08) 12/11/16 15:20 APTT 23.8 Seconds (23.7-30.8) 12/11/16 15:20 Assessment and Plan - Assessment and Plan (Free Text) Plan: Patient was seen and examined by me. I agree with assessment and plan as per resident's note.
--- NOTE | 2016-12-12 16:13 | CP.PCM.PN ---
<Aminta Palm - Last Filed: 12/12/16 16:31> Subjective - Date & Time of Evaluation Date of Evaluation: 12/12/16 Time of Evaluation: 07:45 - Subjective Subjective: Pt seen and evaluated at the bedside. Pt denies vomiting, denies SOB, and chest pain. Continues to have abdominal pain, though better than day before. Pt is using a bedpan this AM, NG output is green, and L stoma has scant brown discharge w/o visible blood. Objective - Vital Signs/Intake and Output Vital Signs (last 24 hours): Temp Pulse Resp BP Pulse Ox 98.6 F 68 18 111/55 L 98 12/12/16 12:00 12/12/16 12:00 12/12/16 12:00 12/12/16 12:00 12/12/16 06:00 Intake and Output: 12/12/16 12/12/16 06:59 18:59 Intake Total 0 Output Total 1001 Balance -1001 - Medications Medications: Current Medications Acetaminophen (Tylenol 325mg Tab) 650 mg PO Q4H PRN PRN Reason: Pain, moderate (4-7) Last Admin: 12/04/16 05:51 Dose: 650 mg Acetaminophen (Tylenol 650 Mg Supp) 650 mg RC Q4H PRN PRN Reason: Fever >100.4 F Atorvastatin Calcium (Lipitor) 20 mg PO DIN [facility] Last Admin: 12/11/16 17:16 Dose: Not Given Benzocaine/Menthol (Cepacol Sore Throat) 1 leo MT Q2H PRN PRN Reason: Sore Throat Last Admin: 12/09/16 20:24 Dose: 1 leo Carvedilol (Coreg) 3.125 mg PO BID [facility] Last Admin: 12/10/16 17:18 Dose: 3.125 mg Famotidine (Pepcid) 20 mg IVP HS [facility] Cefoxitin Sodium 1 gm/ Sodium (Chloride) 100 mls @ 100 mls/hr IV Q8H [facility] PRN Reason: Protocol Last Admin: 12/12/16 13:54 Dose: 100 mls/hr Metronidazole (Flagyl) 100 mls @ 100 mls/hr IVPB Q8 [facility] PRN Reason: Protocol Last Admin: 12/12/16 13:55 Dose: 100 mls/hr Dextrose/Sodium Chloride (Dextrose 5%/0.9% Ns 1000 Ml) 1,000 mls @ 75 mls/hr IV .[id number] [facility] Last Admin: 12/12/16 10:13 Dose: 75 mls/hr Ketorolac Tromethamine (Toradol) 30 mg IVP Q6H PRN PRN Reason: Pain, moderate (4-7) Metoprolol Tartrate (Lopressor) 5 mg IVP Q6H [facility] Last Admin: 12/12/16 10:13 Dose: 5 mg Ondansetron HCl (Zofran Inj) 4 mg IVP Q6H PRN PRN Reason: Nausea/Vomiting Pantoprazole Sodium (Protonix Inj) 40 mg IVP DAILY [facility] Last Admin: 12/12/16 10:12 Dose: 40 mg Vitamin A (Vitamin A & D Oint Ud Foilpak) 1 ea TOP Q6 [facility] Last Admin: 12/12/16 12:02 Dose: 1 ea - Labs Labs: 12/12/16 06:20 12/12/16 06:20 PT 10.6 Seconds (9.9-11.8) 12/11/16 15:20 INR 0.98 (0.93-1.08) 12/11/16 15:20 APTT 23.8 Seconds (23.7-30.8) 12/11/16 15:20 - Additional Findings Additional findings: - Constitutional Appears: No Acute Distress - Head Exam Head Exam: ATRAUMATIC, NORMOCEPHALIC Additional comments: NGT in place with green fluid draining - Eye Exam Eye Exam: EOMI, Normal appearance Pupil Exam: NORMAL ACCOMODATION, PERRL - Respiratory Exam Respiratory Exam: Clear to Ausculation Bilateral, NORMAL BREATHING PATTERN - Cardiovascular Exam Cardiovascular Exam: RRR, +S1, +S2 - GI/Abdominal Exam GI & Abdominal Exam: Soft, Tenderness Additional comments: surgical scar with nicko, c/d/i. Colostomy bag in place with scan brown discharge seen. SONU drain recently emptied and flushed. - Exam External exam: absent: Ecchymosis, Erythema - Neurological Exam Neurological Exam: Alert, Awake - Psychiatric Exam Psychiatric exam: Normal Affect, Normal Mood - Skin Skin Exam: Normal Color, Warm Assessment and Plan - Assessment and Plan (Free Text) Plan: 71 yo F with PMHx of valvular heart disease, GI bleed, and breast cancer presenting with hematochezia. s/p POD# 5 L hemicolectomy, extubated 4 days prior, was under ICU for post op care: Plan: GI bleed/hematochezia s/p LT hemicolectomy, End colostomy day 5 s/p multiple pRBC infusions Hemoglobin 9.3 today monitor daily for bleeding CBC daily, continue to monitor CT shows diverticulosis, esophagitis, cystic structure 2.2 cm pancreatic neck GI consult. Dr. Kam. recs appreciated Colonoscopy 12/05 showed diverticula throughout colon, small amount of blood in terminal ileum. No active bleeding appreciated (see full report) Surgery following, Dr. Skelton, appreciate recs protonix No leukocytosis, pt is currently afebrile, not in distress NPO since NG tube producing more than 500cc today FS Q6, maintain euglycemia Currently in telemetry Hx of HTN Coreg, IV metoprolol Hx of HLD continue home statin Hx of valvular heart disease cardio consult. Dr. Barber. recs appreciated IV metoprolol Monitor I&O Hypokalemia 2.8 today, repleted, f/u mag levels PPx protonix AE hose <Gaurang Ascencio A - Last Filed: 12/12/16 16:59> Objective - Vital Signs/Intake and Output Vital Signs (last 24 hours): Temp Pulse Resp BP Pulse Ox 98.6 F 68 18 111/55 L 98 12/12/16 12:00 12/12/16 12:00 12/12/16 12:00 12/12/16 12:00 12/12/16 06:00 Intake and Output: 12/12/16 12/12/16 06:59 18:59 Intake Total 0 Output Total 1001 Balance -1001 - Medications Medications: Current Medications Acetaminophen (Tylenol 325mg Tab) 650 mg PO Q4H PRN PRN Reason: Pain, moderate (4-7) Last Admin: 12/04/16 05:51 Dose: 650 mg Acetaminophen (Tylenol 650 Mg Supp) 650 mg RC Q4H PRN PRN Reason: Fever >100.4 F Atorvastatin Calcium (Lipitor) 20 mg PO DIN [facility] Last Admin: 12/11/16 17:16 Dose: Not Given Benzocaine/Menthol (Cepacol Sore Throat) 1 leo MT Q2H PRN PRN Reason: Sore Throat Last Admin: 12/09/16 20:24 Dose: 1 leo Carvedilol (Coreg) 3.125 mg PO BID [facility] Last Admin: 12/10/16 17:18 Dose: 3.125 mg Famotidine (Pepcid) 20 mg IVP HS [facility] Cefoxitin Sodium 1 gm/ Sodium (Chloride) 100 mls @ 100 mls/hr IV Q8H [facility] PRN Reason: Protocol Last Admin: 12/12/16 13:54 Dose: 100 mls/hr Metronidazole (Flagyl) 100 mls @ 100 mls/hr IVPB Q8 [facility] PRN Reason: Protocol Last Admin: 12/12/16 13:55 Dose: 100 mls/hr Dextrose/Sodium Chloride (Dextrose 5%/0.9% Ns 1000 Ml) 1,000 mls @ 75 mls/hr IV .[id number] [facility] Last Admin: 12/12/16 10:13 Dose: 75 mls/hr Ketorolac Tromethamine (Toradol) 30 mg IVP Q6H PRN PRN Reason: Pain, moderate (4-7) Metoprolol Tartrate (Lopressor) 5 mg IVP Q6H [facility] Last Admin: 12/12/16 10:13 Dose: 5 mg Ondansetron HCl (Zofran Inj) 4 mg IVP Q6H PRN PRN Reason: Nausea/Vomiting Pantoprazole Sodium (Protonix Inj) 40 mg IVP DAILY [facility] Last Admin: 12/12/16 10:12 Dose: 40 mg Vitamin A (Vitamin A & D Oint Ud Foilpak) 1 ea TOP Q6 [facility] Last Admin: 12/12/16 12:02 Dose: 1 ea - Labs Labs: 12/12/16 06:20 12/12/16 06:20 PT 10.6 Seconds (9.9-11.8) 12/11/16 15:20 INR 0.98 (0.93-1.08) 12/11/16 15:20 APTT 23.8 Seconds (23.7-30.8) 12/11/16 15:20 Attending/Attestation - Attestation I have personally seen and examined this patient.: Yes I have fully participated in the care of the patient.: Yes I have reviewed all pertinent clinical information, including history, physical exam and plan: Yes Notes (Text): 12/12/16 16:54 71 year old female with past medical history of valvular heart disease, breast cancer, and GIB presented with hematochezia and anemia. She has received multiple blood transfusions since admission. CT and colonoscopy were reviewed as above. She is s/p hemicolectomy. Her hemoglobin has been stable since surgery. NGT is still in place. She is being followed by GI and surgery. Cardiology is also following patient for history of valvular heart disease and hypertension. Potassium was 2.8 today which we will replete and repeat. Continue with physical therapy as tolerated. Gaurang Ascencio MD Hospitalist.
[2016-12-13] MEDS: Vitamins A & D Oint UD Foilpak TOP SCH ×4 (00:14→18:14)
[2016-12-13] MEDS: Metoprolol 1 mg/ml Inj IVP SCH ×4 (04:56→20:30)
[2016-12-13] MEDS: cefOXitin Sodium 1 GM in Sodium Chloride 0.9% 100 ML IV SCH (06:24)
[2016-12-13] MEDS: metroNIDAZOLE IV 500 mg/100 ml 100 ML IVPB SCH ×2 (06:26→14:09)
[2016-12-13 06:49] LABS: ADD MANUAL DIFF? NO
[2016-12-13 07:16] LABS: ALB/GLOB RATIO 0.8 (1.1-1.8); ALKALINE PHOSPHATASE 41 U/L (38-133); ALT/SGPT 36 U/L (7-56); AST/SGOT 26 U/L (15-39); BILIRUBIN,TOTAL 0.5 mg/dL (0.2-1.3); BLOOD UREA NITROGEN 4 mg/dL (7-21); CALCIUM 7.7 mg/dL (8.4-10.5); CARBON DIOXIDE 34 mmol/L (21-33); CHLORIDE 103 mmol/L (98-107); GFR AFRICAN-AMERICAN > 60; GLUCOSE,RANDOM 98 mg/dL (70-110); SODIUM 138 mmol/L (132-148); TOTAL PROTEIN 5.2 g/dL (5.8-8.3)
[2016-12-13 07:19] LABS: BASO # 0.03 K/mm3 (0.0-2.0); BASO % 0.5 % (0.0-3.0); EOS # 0.2 (0.0-0.7); EOS % 3.8 % (1.5-5.0); GRAN # 4.37 (1.4-6.5); GRAN % 71.3 % (50.0-68.0); HEMATOCRIT 26.2 % (36.0-48.0); LYMPH % 15.8 % (22.0-35.0); MEAN CORPUSCULAR HEMOGLOBIN 29.2 pg (25.0-35.0); MEAN CORPUSCULAR HGB CONC 32.4 g/dl (31.0-37.0); MEAN PLATELET VOLUME 9.9 fl (7.0-11.0); MONO # 0.5 (0.1-0.6); MONO % 8.6 % (1.0-6.0); PLATELET COUNT 197 10^3/uL (120.0-450.0); RED CELL DISTRIBUTION WIDTH 15.5 % (11.5-14.5); WHITE BLOOD COUNT 6.1 10^3/ul (4.5-11.0)
[2016-12-13] MEDS: Potassium Chloride 20 mEq 100 ML IVPB SCH ×2 (08:05→10:37)
--- NOTE | 2016-12-13 08:05 | CP.PCM.PN ---
Subjective - Date & Time of Evaluation Date of Evaluation: 12/13/16 Time of Evaluation: 08:00 - Subjective Subjective: Stable on 2R. No CP or SOB. NGT in place. Less depressed. V/S noted. RSR PE: Lungs: rhonchi Cor.: S1S2, sys murmur Abd.: soft. Colostomy. Ext.: no edema Neuro.: alert I/O= 900/925 Labs noted. H/H=8.5/26.2, K+= 3.0 BC NG at 3 days CXR 12/11: no interval pathology. ECG 12/09 noted: S.Tachy., LAHB, PRWP, STTW changes, No change except slower rate. Objective - Vital Signs/Intake and Output Vital Signs (last 24 hours): Temp Pulse Resp BP Pulse Ox 97.6 F 75 20 100/57 L 99 12/13/16 06:00 12/13/16 06:00 12/13/16 06:00 12/13/16 06:00 12/13/16 06:00 Intake and Output: 12/13/16 12/13/16 06:59 18:59 Intake Total 900 Output Total 365 Balance 535 - Medications Medications: Current Medications Acetaminophen (Tylenol 325mg Tab) 650 mg PO Q4H PRN PRN Reason: Pain, moderate (4-7) Last Admin: 12/04/16 05:51 Dose: 650 mg Acetaminophen (Tylenol 650 Mg Supp) 650 mg RC Q4H PRN PRN Reason: Fever >100.4 F Atorvastatin Calcium (Lipitor) 20 mg PO DIN [facility] Last Admin: 12/12/16 18:36 Dose: Not Given Benzocaine/Menthol (Cepacol Sore Throat) 1 leo MT Q2H PRN PRN Reason: Sore Throat Last Admin: 12/09/16 20:24 Dose: 1 leo Carvedilol (Coreg) 3.125 mg PO BID [facility] Last Admin: 12/10/16 17:18 Dose: 3.125 mg Famotidine (Pepcid) 20 mg IVP HS [facility] Last Admin: 12/12/16 22:18 Dose: 20 mg Cefoxitin Sodium 1 gm/ Sodium (Chloride) 100 mls @ 100 mls/hr IV Q8H [facility] PRN Reason: Protocol Last Admin: 12/13/16 06:24 Dose: 100 mls/hr Metronidazole (Flagyl) 100 mls @ 100 mls/hr IVPB Q8 [facility] PRN Reason: Protocol Last Admin: 12/13/16 06:26 Dose: 100 mls/hr Dextrose/Sodium Chloride (Dextrose 5%/0.9% Ns 1000 Ml) 1,000 mls @ 75 mls/hr IV .[id number] [facility] Last Admin: 12/12/16 22:16 Dose: 75 mls/hr Potassium Chloride (Potassium Chloride 20 Meq/100 Ml) 100 mls @ 50 mls/hr IVPB Q2H [facility] Stop: 12/13/16 11:44 Ketorolac Tromethamine (Toradol) 30 mg IVP Q6H PRN PRN Reason: Pain, moderate (4-7) Last Admin: 12/12/16 22:38 Dose: 30 mg Metoprolol Tartrate (Lopressor) 5 mg IVP Q6H [facility] Last Admin: 12/13/16 04:56 Dose: Not Given Ondansetron HCl (Zofran Inj) 4 mg IVP Q6H PRN PRN Reason: Nausea/Vomiting Pantoprazole Sodium (Protonix Inj) 40 mg IVP DAILY [facility] Last Admin: 12/12/16 10:12 Dose: 40 mg Vitamin A (Vitamin A & D Oint Ud Foilpak) 1 ea TOP Q6 [facility] Last Admin: 12/13/16 06:25 Dose: Not Given - Labs Labs: 12/13/16 06:48 12/13/16 06:48 PT 10.6 Seconds (9.9-11.8) 12/11/16 15:20 INR 0.98 (0.93-1.08) 12/11/16 15:20 APTT 23.8 Seconds (23.7-30.8) 12/11/16 15:20 Assessment and Plan - Assessment and Plan (Free Text) Plan: Assessment: Active LGI Bleeding from Sigmoid Colon S/P extended left hemicolectomy Post-op Ileus H/O diverticulosis with remote GIB Severe MR Mild/mod. LVD, possible related to chemo tx. Breast cancer s/p mastectomy and chemo. HLD GERD Plan: Replace K+ virorously. Re-check level at 4 PM today and in AM tomorrow. GI and Surg. F/U Monitor I/O. High Risk for CHF due to sev. MR and mod. LVD IV metoprolol. Monitor: H/H, labs, I/O, sats., etc. OOB to chair as katrina. Will follow.
[2016-12-13] MEDS ORDERED: Iohexol 350 MG/100 ML VIAL ONE (09:00)
[2016-12-13 10:00] LABS: IRON 19 ug/dL (45-180)
--- NOTE | 2016-12-13 12:20 | CT ---
PROCEDURE: CT Abdomen and Pelvis with contrast HISTORY: abdominal pain COMPARISON: 12/04/2016 TECHNIQUE: Contrast dose: 100 cc of Omni 350 Radiation dose: Total exam DLP = 802 mGy-cm. This CT exam was performed using one or more of the following dose reduction techniques: Automated exposure control, adjustment of the mA and/or kV according to patient size, and/or use of iterative reconstruction technique. FINDINGS: LOWER THORAX: Nasogastric tube in the stomach. LIVER: Unremarkable. No gross lesion or ductal dilatation. GALLBLADDER AND BILE DUCTS: Unremarkable. PANCREAS: 15 x 17 mm simple cyst in the body of the pancreas SPLEEN: Unremarkable. ADRENALS: Unremarkable. No mass. KIDNEYS AND URETERS: Unremarkable. No hydronephrosis. No solid mass. VASCULATURE: Unremarkable. No aortic aneurysm. BOWEL: There is a new ostomy in the left lower quadrant. There is a suture line in the rectosigmoid. A drainage catheter is seen in the pelvis. No evidence of obstruction. APPENDIX: Normal appendix. PERITONEUM: Unremarkable. No free fluid. No free air. LYMPH NODES: Unremarkable. No enlarged lymph nodes. BLADDER: Unremarkable. REPRODUCTIVE: Unremarkable. BONES: No acute fracture. OTHER FINDINGS: None. IMPRESSION: No acute findings. No evidence of abscess
--- NOTE | 2016-12-13 13:15 | CP.PCM.PN ---
<Igor Wesley - Last Filed: 12/13/16 16:28> Subjective - Date & Time of Evaluation Date of Evaluation: 12/13/16 Time of Evaluation: 07:10 - Subjective Subjective: General Surgery Progress Note For Dr. Lynn This 71F was seen and examined this AM at bedside. She reports no acute events overnight. NGT had 700cc out of 24 hours only 50cc in past 12hr. She denies any fever, chills, chest pain, SOB nausea, Objective - Vital Signs/Intake and Output Vital Signs (last 24 hours): Temp Pulse Resp BP Pulse Ox 97.6 F 72 20 100/57 L 99 12/13/16 06:00 12/13/16 10:00 12/13/16 06:00 12/13/16 06:00 12/13/16 06:00 Intake and Output: 12/13/16 12/13/16 06:59 18:59 Intake Total 900 Output Total 365 Balance 535 - Medications Medications: Current Medications Acetaminophen (Tylenol 325mg Tab) 650 mg PO Q4H PRN PRN Reason: Pain, moderate (4-7) Last Admin: 12/04/16 05:51 Dose: 650 mg Acetaminophen (Tylenol 650 Mg Supp) 650 mg RC Q4H PRN PRN Reason: Fever >100.4 F Atorvastatin Calcium (Lipitor) 20 mg PO DIN [facility] Last Admin: 12/12/16 18:36 Dose: Not Given Benzocaine/Menthol (Cepacol Sore Throat) 1 leo MT Q2H PRN PRN Reason: Sore Throat Last Admin: 12/09/16 20:24 Dose: 1 leo Carvedilol (Coreg) 3.125 mg PO BID [facility] Last Admin: 12/10/16 17:18 Dose: 3.125 mg Famotidine (Pepcid) 20 mg IVP HS [facility] Last Admin: 12/12/16 22:18 Dose: 20 mg Cefoxitin Sodium 1 gm/ Sodium (Chloride) 100 mls @ 100 mls/hr IV Q8H [facility] PRN Reason: Protocol Last Admin: 12/13/16 06:24 Dose: 100 mls/hr Metronidazole (Flagyl) 100 mls @ 100 mls/hr IVPB Q8 [facility] PRN Reason: Protocol Last Admin: 12/13/16 06:26 Dose: 100 mls/hr Potassium Chloride 20 meq/ (Dextrose/Sodium Chloride) 1,010 mls @ 75 mls/hr IV .[id number] [facility] Iron Sucrose 100 mg/ Sodium (Chloride) 105 mls @ 210 mls/hr IVPB DAILY [facility] Stop: 12/17/16 10:29 Ketorolac Tromethamine (Toradol) 30 mg IVP Q6H PRN PRN Reason: Pain, moderate (4-7) Last Admin: 12/13/16 08:06 Dose: 30 mg Metoprolol Tartrate (Lopressor) 5 mg IVP Q6H [facility] Last Admin: 12/13/16 10:32 Dose: Not Given Ondansetron HCl (Zofran Inj) 4 mg IVP Q6H PRN PRN Reason: Nausea/Vomiting Pantoprazole Sodium (Protonix Inj) 40 mg IVP DAILY [facility] Last Admin: 12/13/16 10:36 Dose: 40 mg Vitamin A (Vitamin A & D Oint Ud Foilpak) 1 ea TOP Q6 [facility] Last Admin: 12/13/16 12:46 Dose: 1 ea - Labs Labs: 12/13/16 06:48 12/13/16 06:48 PT 10.6 Seconds (9.9-11.8) 12/11/16 15:20 INR 0.98 (0.93-1.08) 12/11/16 15:20 APTT 23.8 Seconds (23.7-30.8) 12/11/16 15:20 - Constitutional Appears: Non-toxic, No Acute Distress - Head Exam Head Exam: ATRAUMATIC, NORMOCEPHALIC - Eye Exam Eye Exam: EOMI, Normal appearance - ENT Exam ENT Exam: Mucous Membranes Moist, Normal Exam - Respiratory Exam Respiratory Exam: NORMAL BREATHING PATTERN - Cardiovascular Exam Cardiovascular Exam: +S1, +S2 - GI/Abdominal Exam GI & Abdominal Exam: Soft. absent: Guarding, Rigid, Tenderness Additional comments: Midline inscision painted with iodine stoma pink and patent - Neurological Exam Neurological Exam: Alert, Awake - Psychiatric Exam Psychiatric exam: Normal Affect, Normal Mood - Skin Skin Exam: Dry, Intact Assessment and Plan - Assessment and Plan (Free Text) Assessment: This is a 71F with a PMH of Breast CA and Diverticulosis who presented with a GI bleed who is POD#4 s/p left colectomy and transverse colostomy., CT abdomen shows s/p clectomy with colostomy and no acute processes. Wound care: [place] with betadine twice daily Monitor ostomy output Toradol for pain no narcotics Potassium 3.7 D/C IVF Clear liquid diet Will discuss with Dr. Thao Wesley PGY-1 <Cirilo Osuna - Last Filed: 03/19/17 23:35> Objective - Vital Signs/Intake and Output Vital Signs (last 24 hours): Temp Pulse Resp BP Pulse Ox 98 F 78 18 111/67 95 12/17/16 12:00 12/17/16 12:00 12/17/16 12:00 12/17/16 12:00 12/16/16 06:00 - Labs Labs: 12/16/16 06:30 12/16/16 06:30 PT 10.6 Seconds (9.9-11.8) 12/11/16 15:20 INR 0.98 (0.93-1.08) 12/11/16 15:20 APTT 23.8 Seconds (23.7-30.8) 12/11/16 15:20 Assessment and Plan - Assessment and Plan (Free Text) Plan: Patient was seen and examined by me. I agree with assessment and plan as per resident's note.
--- NOTE | 2016-12-13 14:35 | PN ---
DATE: 12/13/2016 The patient was seen and examined earlier today. The patient still remains with NG tube to low inter mittent suction, 24-hour drain noted of, evening shift drained about 50 mL. She complains of throat pain. No nausea or vomiting. The epigastric burning sensation is improved. No reports of any overt GI bleed. VITAL SIGNS: Temperature is 97.6, pulse 72, blood pressure is 100/57, respirations 20, 99% nasal can nula. LABORATORIES: WBCs 6.1, H and H is 8.5 and 26.2, platelets of 197. Sodium 138, K is 3.0, BUN is 4, creatinine is 0.6. Iron is 19. Her TIBC 195. Percent saturation is 10. Total bilirubin is 0.5, T 26, ALT 36, alkaline phosphatase is 41. PHYSICAL EXAMINATION: HEENT: Sclerae anicteric. NECK: Supple. CARDIAC: S1, S2. LUNG SOUNDS: With some rhonchi, no wheezing. ABDOMEN: With bowel sounds. [place] in place, open to air to dry and intact mid abdomen. Colostomy stoma is pink. The bag was just changed. It is currently empty. EXTREMITIES: No edema. NEUROLOGIC: Awake, alert, and oriented. The patient went for CT scan of abdomen and pelvis with IV contrast and it shows no acute findings or evidence of abscess. It does show a new colostomy in the left lower quadrant. The suture line in t he rectosigmoid as well as a drainage catheter is seen in the pelvis, no evidence of obstruction. Al so noted to have a 15 mm x 17 mm simple cyst in the body of the pancreas. IMPRESSION: A 71-year-old female with past medical history of breast cancer and diverticulosis, stat us post gastrointestinal bleed, likely secondary to diverticular bleed, status post left colectomy an d transverse colostomy. The patient had fever postop and having recurrent nausea. Nasogastric tube was placed, reinserted. Her drain is less during evening shift last night. She went for a CT scan o f abdomen and pelvis with no acute process. She also has hypokalemia, getting potassium replacements . Other comorbidity is chronic severe mitral regurgitation. PLAN: Continue to monitor electrolytes. She is receiving potassium replacements, is on IV antibioti cs of Flagyl and cefoxitin. Continue gastrointestinal prophylaxis. She is on Protonix 40 IV and get ting Pepcid 20 mg IV in the evening, on IV fluids with potassium. As per surgery, cardiology. ADDENDUM: Her left hemicolectomy biopsy shows mild acute diverticulitis and blood in the lumen of di verticula. Diverticular process involves one of the resection margins, mesenteric and pericolic adip ose tissue with vascular congestion and focal hemorrhage, 2 benign lymph nodes, segment of skin histo logically unremarkable. We will continue to follow. The patient was seen and case discussed with Dr. Kam. Paty MARTINES cc: [id number] TT: 12/13/2016 14:35:12 Confirmation # [id number] Dictation # [id number]
[2016-12-13 16:15] LABS: BLOOD UREA NITROGEN 5 mg/dL (7-21); CALCIUM 7.9 mg/dL (8.4-10.5); CARBON DIOXIDE 31 mmol/L (21-33); CHLORIDE 102 mmol/L (98-107); GFR AFRICAN-AMERICAN > 60; GLUCOSE,RANDOM 90 mg/dL (70-110); POTASSIUM 3.7 mmol/L (3.6-5.0); SODIUM 138 mmol/L (132-148)
[2016-12-13 17:30] LABS: FOLATE 11.7 ng/mL
[2016-12-13] MEDS: Potassium Chloride 20 MEQ in Dextrose 5%/0.9% NS 1,000 ML IV SCH ×2 (18:13→22:49)
--- NOTE | 2016-12-13 19:58 | CP.PCM.PN ---
<Aminta Palm - Last Filed: 12/14/16 06:09> Subjective - Date & Time of Evaluation Date of Evaluation: 12/13/16 Time of Evaluation: 07:45 - Subjective Subjective: Pt seen and evaluated at bedside. Denies SOB, n/v/chest pain/BM overnight. Has overnight c/o R face pain, and NGT is removed later on in day. Objective - Vital Signs/Intake and Output Vital Signs (last 24 hours): Temp Pulse Resp BP Pulse Ox 97.6 F 82 18 91/57 L 94 L 12/13/16 19:05 12/13/16 19:05 12/13/16 19:05 12/13/16 19:05 12/13/16 18:00 Intake and Output: 12/13/16 12/14/16 18:59 06:59 Intake Total 180 0 Output Total 600 Balance -420 0 - Medications Medications: Current Medications Acetaminophen (Tylenol 325mg Tab) 650 mg PO Q4H PRN PRN Reason: Pain, moderate (4-7) Last Admin: 12/04/16 05:51 Dose: 650 mg Acetaminophen (Tylenol 650 Mg Supp) 650 mg RC Q4H PRN PRN Reason: Fever >100.4 F Atorvastatin Calcium (Lipitor) 20 mg PO DIN [facility] Last Admin: 12/13/16 18:22 Dose: Not Given Benzocaine/Menthol (Cepacol Sore Throat) 1 leo MT Q2H PRN PRN Reason: Sore Throat Last Admin: 12/09/16 20:24 Dose: 1 leo Carvedilol (Coreg) 3.125 mg PO BID [facility] Last Admin: 12/10/16 17:18 Dose: 3.125 mg Famotidine (Pepcid) 20 mg IVP HS [facility] Last Admin: 12/12/16 22:18 Dose: 20 mg Potassium Chloride 20 meq/ (Dextrose/Sodium Chloride) 1,010 mls @ 75 mls/hr IV .[id number] [facility] Last Admin: 12/13/16 18:13 Dose: 75 mls/hr Iron Sucrose 100 mg/ Sodium (Chloride) 105 mls @ 210 mls/hr IVPB DAILY [facility] Stop: 12/17/16 10:29 Ketorolac Tromethamine (Toradol) 30 mg IVP Q6H PRN PRN Reason: Pain, moderate (4-7) Last Admin: 12/13/16 18:22 Dose: 30 mg Metoprolol Tartrate (Lopressor) 5 mg IVP Q6H [facility] Last Admin: 12/13/16 18:13 Dose: Not Given Ondansetron HCl (Zofran Inj) 4 mg IVP Q6H PRN PRN Reason: Nausea/Vomiting Pantoprazole Sodium (Protonix Inj) 40 mg IVP DAILY [facility] Last Admin: 12/13/16 10:36 Dose: 40 mg Vitamin A (Vitamin A & D Oint Ud Foilpak) 1 ea TOP Q6 [facility] Last Admin: 12/13/16 18:14 Dose: Not Given - Labs Labs: 12/13/16 06:48 12/13/16 15:45 PT 10.6 Seconds (9.9-11.8) 12/11/16 15:20 INR 0.98 (0.93-1.08) 12/11/16 15:20 APTT 23.8 Seconds (23.7-30.8) 12/11/16 15:20 - Constitutional Appears: No Acute Distress - Head Exam Head Exam: ATRAUMATIC, NORMOCEPHALIC - Eye Exam Eye Exam: EOMI, Normal appearance Pupil Exam: NORMAL ACCOMODATION, PERRL - ENT Exam ENT Exam: Mucous Membranes Moist Additional comments: NGT placed at time of physical exam. Draining dark serosanguinous fluid. - Respiratory Exam Respiratory Exam: NORMAL BREATHING PATTERN. absent: Wheezes - Cardiovascular Exam Cardiovascular Exam: +S1, +S2. absent: Bradycardia - GI/Abdominal Exam GI & Abdominal Exam: Soft, Tenderness Additional comments: surgical scar with nicko, c/d/i, no erythema. Colostomy bag in place with brown discharge seen. SONU drain flushed w/ scant sanguinous fluid. - Exam External exam: absent: Ecchymosis, Erythema - Neurological Exam Neurological Exam: Alert, Awake - Skin Skin Exam: Normal Color, Warm Assessment and Plan - Assessment and Plan (Free Text) Plan: 71 yo F with PMHx of valvular heart disease, GI bleed, and breast cancer presenting with hematochezia. s/p POD# 6 L hemicolectomy, extubated 5 days prior, was under ICU for post op care: Plan: GI bleed/hematochezia s/p LT hemicolectomy, End colostomy day 6 s/p multiple pRBC infusions Hemoglobin 8.5 today monitor daily for bleeding CBC daily, continue to monitor CT shows diverticulosis, esophagitis, cystic structure 2.2 cm pancreatic neck GI consult. Dr. Kam. recs appreciated Colonoscopy / showed diverticula throughout colon, small amount of blood in terminal ileum. No active bleeding appreciated (see full report) Surgery following, Dr. Skelton, appreciate recs Following rec, 1prbc transfused in the PM protonix No leukocytosis, pt is currently afebrile, not in distress This PM, sx team diet advanced to CLD since NG tube producing less than 50cc today/was removed, with Abd CT w/o acute findings FS Q6, maintain euglycemia iron sucrose on board Currently in telemetry Hx of HTN Coreg, IV metoprolol Hx of HLD continue home statin Hx of valvular heart disease cardio consult. Dr. Barber. recs appreciated IV metoprolol Monitor I&O Hypokalemia 3.0 today, repleted, and repeat value is 3.7 PPx protonix SCD <Gaurang Ascencio A - Last Filed: 12/14/16 06:49> Objective - Vital Signs/Intake and Output Vital Signs (last 24 hours): Temp Pulse Resp BP Pulse Ox 98.5 F 71 18 103/60 96 12/14/16 05:27 12/14/16 05:39 12/14/16 05:27 12/14/16 05:27 12/14/16 05:27 Intake and Output: 12/13/16 12/14/16 18:59 06:59 Intake Total 180 1000 Output Total 600 Balance -420 1000 - Medications Medications: Current Medications Acetaminophen (Tylenol 325mg Tab) 650 mg PO Q4H PRN PRN Reason: Pain, moderate (4-7) Last Admin: 12/04/16 05:51 Dose: 650 mg Acetaminophen (Tylenol 650 Mg Supp) 650 mg RC Q4H PRN PRN Reason: Fever >100.4 F Atorvastatin Calcium (Lipitor) 20 mg PO DIN [facility] Last Admin: 12/13/16 18:22 Dose: Not Given Benzocaine/Menthol (Cepacol Sore Throat) 1 leo MT Q2H PRN PRN Reason: Sore Throat Last Admin: 12/09/16 20:24 Dose: 1 leo Carvedilol (Coreg) 3.125 mg PO BID [facility] Last Admin: 12/10/16 17:18 Dose: 3.125 mg Famotidine (Pepcid) 20 mg IVP HS [facility] Last Admin: 12/13/16 22:37 Dose: 20 mg Potassium Chloride 20 meq/ (Dextrose/Sodium Chloride) 1,010 mls @ 75 mls/hr IV .[id number] [facility] Last Admin: 12/13/16 22:49 Dose: 75 mls/hr Iron Sucrose 100 mg/ Sodium (Chloride) 105 mls @ 210 mls/hr IVPB DAILY [facility] Stop: 12/17/16 10:29 Ketorolac Tromethamine (Toradol) 30 mg IVP Q6H PRN PRN Reason: Pain, moderate (4-7) Last Admin: 12/14/16 00:12 Dose: 30 mg Metoprolol Tartrate (Lopressor) 5 mg IVP Q6H [facility] Last Admin: 12/14/16 04:01 Dose: Not Given Ondansetron HCl (Zofran Inj) 4 mg IVP Q6H PRN PRN Reason: Nausea/Vomiting Pantoprazole Sodium (Protonix Inj) 40 mg IVP DAILY [facility] Last Admin: 12/13/16 10:36 Dose: 40 mg Vitamin A (Vitamin A & D Oint Ud Foilpak) 1 ea TOP Q6 [facility] Last Admin: 12/14/16 00:12 Dose: Not Given - Labs Labs: 12/13/16 06:48 12/13/16 15:45 PT 10.6 Seconds (9.9-11.8) 12/11/16 15:20 INR 0.98 (0.93-1.08) 12/11/16 15:20 APTT 23.8 Seconds (23.7-30.8) 12/11/16 15:20 Attending/Attestation - Attestation I have personally seen and examined this patient.: Yes I have fully participated in the care of the patient.: Yes I have reviewed all pertinent clinical information, including history, physical exam and plan: Yes Notes (Text): 12/13/16 71 year old female with past medical history of valvular heart disease, breast cancer, and GIB presented with hematochezia and anemia. She has received multiple blood transfusions since admission. CT and colonoscopy were reviewed as above. She is s/p hemicolectomy. Her hemoglobin has been stable since surgery. She is started on iv iron for anemia. Also getting PRBC transfusion per surgery today. NGT may be removed later today with advancement of diet to liquids. CT abd/pelvis showed no acute findings. Cardiology is also following patient for history of valvular heart disease and hypertension. Potassium was low and repleted earlier today. Continue with physical therapy as tolerated. Gaurang Ascencio MD Hospitalist.
[2016-12-14] MEDS: Vitamins A & D Oint UD Foilpak TOP SCH ×3 (00:12→17:36)
[2016-12-14] MEDS: Metoprolol 1 mg/ml Inj IVP SCH (04:01)
[2016-12-14 07:00] LABS: ADD MANUAL DIFF? NO
[2016-12-14 07:04] LABS: BASO # 0.02 K/mm3 (0.0-2.0); BASO % 0.3 % (0.0-3.0); EOS # 0.2 (0.0-0.7); EOS % 3.2 % (1.5-5.0); GRAN # 4.35 (1.4-6.5); GRAN % 73.8 % (50.0-68.0); HEMATOCRIT 30.6 % (36.0-48.0); LYMPH # 0.8 (1.2-3.4); LYMPH % 14.2 % (22.0-35.0); MEAN CELL VOLUME 88.7 fL (80.0-105.0); MEAN CORPUSCULAR HEMOGLOBIN 28.7 pg (25.0-35.0); MEAN CORPUSCULAR HGB CONC 32.4 g/dl (31.0-37.0); MONO # 0.5 (0.1-0.6); MONO % 8.5 % (1.0-6.0); PLATELET COUNT 208 10^3/uL (120.0-450.0); RED CELL DISTRIBUTION WIDTH 15.7 % (11.5-14.5); WHITE BLOOD COUNT 5.9 10^3/ul (4.5-11.0)
[2016-12-14 07:25] LABS: ALB/GLOB RATIO 0.8 (1.1-1.8); ALKALINE PHOSPHATASE 45 U/L (38-133); ALT/SGPT 35 U/L (7-56); AST/SGOT 25 U/L (15-39); BILIRUBIN,TOTAL 0.5 mg/dL (0.2-1.3); BLOOD UREA NITROGEN 3 mg/dL (7-21); CALCIUM 7.9 mg/dL (8.4-10.5); CARBON DIOXIDE 33 mmol/L (21-33); CHLORIDE 104 mmol/L (98-107); GFR AFRICAN-AMERICAN > 60; GLUCOSE,RANDOM 89 mg/dL (70-110); MAGNESIUM 2.1 mg/dL (1.7-2.2); POTASSIUM 3.3 mmol/L (3.6-5.0); SODIUM 142 mmol/L (132-148); TOTAL PROTEIN 5.3 g/dL (5.8-8.3)
--- NOTE | 2016-12-14 08:03 | CP.PCM.PN ---
<Aleyda Palm - Last Filed: 12/14/16 08:00> Subjective - Date & Time of Evaluation Date of Evaluation: 12/14/16 Time of Evaluation: 08:00 - Subjective Subjective: Surgery for Dr. Osuna Pt s&e. ANITA. NGT DCed. Pt tolerated CLD. Ostomy putting out dark brown fecal/ melanotic fluids. +amb with PT. Denies F/C/N/V/D/CP/SOB. +void. Objective - Vital Signs/Intake and Output Vital Signs (last 24 hours): Temp Pulse Resp BP Pulse Ox 98.5 F 71 18 103/60 96 12/14/16 05:27 12/14/16 05:39 12/14/16 05:27 12/14/16 05:27 12/14/16 05:27 Intake and Output: 12/14/16 12/14/16 06:59 18:59 Intake Total 1000 Balance 1000 - Medications Medications: Current Medications Acetaminophen (Tylenol 325mg Tab) 650 mg PO Q4H PRN PRN Reason: Pain, moderate (4-7) Last Admin: 12/04/16 05:51 Dose: 650 mg Acetaminophen (Tylenol 650 Mg Supp) 650 mg RC Q4H PRN PRN Reason: Fever >100.4 F Atorvastatin Calcium (Lipitor) 20 mg PO DIN [facility] Last Admin: 12/13/16 18:22 Dose: Not Given Benzocaine/Menthol (Cepacol Sore Throat) 1 leo MT Q2H PRN PRN Reason: Sore Throat Last Admin: 12/09/16 20:24 Dose: 1 leo Carvedilol (Coreg) 3.125 mg PO BID [facility] Last Admin: 12/10/16 17:18 Dose: 3.125 mg Famotidine (Pepcid) 20 mg IVP HS [facility] Last Admin: 12/13/16 22:37 Dose: 20 mg Potassium Chloride 20 meq/ (Dextrose/Sodium Chloride) 1,010 mls @ 75 mls/hr IV .[id number] [facility] Last Admin: 12/13/16 22:49 Dose: 75 mls/hr Iron Sucrose 100 mg/ Sodium (Chloride) 105 mls @ 210 mls/hr IVPB DAILY [facility] Stop: 12/17/16 10:29 Potassium Chloride (Potassium Chloride 20 Meq/100 Ml) 100 mls @ 50 mls/hr IVPB Q2H [facility] Stop: 12/14/16 11:44 Ketorolac Tromethamine (Toradol) 30 mg IVP Q6H PRN PRN Reason: Pain, moderate (4-7) Last Admin: 12/14/16 00:12 Dose: 30 mg Metoprolol Tartrate (Lopressor) 5 mg IVP Q6H [facility] Last Admin: 12/14/16 04:01 Dose: Not Given Ondansetron HCl (Zofran Inj) 4 mg IVP Q6H PRN PRN Reason: Nausea/Vomiting Pantoprazole Sodium (Protonix Inj) 40 mg IVP DAILY [facility] Last Admin: 12/13/16 10:36 Dose: 40 mg Vitamin A (Vitamin A & D Oint Ud Foilpak) 1 ea TOP Q6 [facility] Last Admin: 12/14/16 00:12 Dose: Not Given - Labs Labs: 12/14/16 06:45 12/14/16 06:45 PT 10.6 Seconds (9.9-11.8) 12/11/16 15:20 INR 0.98 (0.93-1.08) 12/11/16 15:20 APTT 23.8 Seconds (23.7-30.8) 12/11/16 15:20 - Constitutional Appears: No Acute Distress - Head Exam Head Exam: ATRAUMATIC, NORMAL INSPECTION, NORMOCEPHALIC - Eye Exam Eye Exam: EOMI, Normal appearance, PERRL Pupil Exam: NORMAL ACCOMODATION, PERRL - ENT Exam ENT Exam: Mucous Membranes Moist, Normal Exam - Neck Exam Neck Exam: Full ROM, Normal Inspection. absent: Lymphadenopathy - Respiratory Exam Respiratory Exam: Clear to Ausculation Bilateral, NORMAL BREATHING PATTERN. absent: Respiratory Distress - Cardiovascular Exam Cardiovascular Exam: REGULAR RHYTHM, +S1, +S2. absent: Murmur - GI/Abdominal Exam GI & Abdominal Exam: Soft, Normal Bowel Sounds. absent: Distended, Firm, Guarding, Rigid, Tenderness, Hernia, Mass, Organomegaly, Pulsatile Mass, Rebound Additional comments: Ostomy melanotic fluid. 20cc. Incision D/I. [place]. Midline 30cm. - Extremities Exam Extremities Exam: Normal Capillary Refill, Normal Inspection. absent: Pedal Edema, Tenderness - Back Exam Back Exam: NORMAL INSPECTION - Neurological Exam Neurological Exam: Alert, Awake, CN II-XII Intact, Oriented x3 - Psychiatric Exam Psychiatric exam: Normal Affect, Normal Mood - Skin Skin Exam: Dry, Intact, Normal Color, Warm. absent: Erythema Assessment and Plan - Assessment and Plan (Free Text) Assessment: This is a 71F with a PMH of Breast CA and Diverticulosis who presented with a GI bleed who is POD#7 s/p left colectomy and transverse colostomy: Stable Wound care: [place] with betadine twice daily Monitor ostomy output: patent, functioning. Toradol for pain no narcotics Replenish K Full liquid diet f/u Placememnt per egg caser Will discuss with Dr. Osuna <Cirilo Ousna - Last Filed: 03/19/17 23:36> Objective - Vital Signs/Intake and Output Vital Signs (last 24 hours): Temp Pulse Resp BP Pulse Ox 98 F 78 18 111/67 95 12/17/16 12:00 12/17/16 12:00 12/17/16 12:00 12/17/16 12:00 12/16/16 06:00 - Labs Labs: 12/16/16 06:30 12/16/16 06:30 PT 10.6 Seconds (9.9-11.8) 12/11/16 15:20 INR 0.98 (0.93-1.08) 12/11/16 15:20 APTT 23.8 Seconds (23.7-30.8) 12/11/16 15:20 Assessment and Plan - Assessment and Plan (Free Text) Plan: Patient was seen and examined by me. I agree with assessment and plan as per resident's note.
[2016-12-14] MEDS: Potassium Chloride 20 mEq 100 ML IVPB SCH ×2 (08:30→10:52)
--- NOTE | 2016-12-14 08:50 | CP.PCM.PN ---
Subjective - Date & Time of Evaluation Date of Evaluation: 12/14/16 Time of Evaluation: 08:00 - Subjective Subjective: Stable on 2R. No CP or SOB. NGT out and taking CL. She got 1 unit RBCs yesterday. V/S noted. RSR PE: Lungs: rhonchi Cor.: S1S2, sys murmur Abd.: soft. Colostomy. Ext.: no edema Neuro.: alert I/O= 1180/600 Labs noted. H/H= 9.9/30.6, K+= 3.3 BC NG at 4 days CXR 12/11: no interval pathology. ECG 12/09 noted: S.Tachy., LAHB, PRWP, STTW changes, No change except slower rate. C abd. and pelvis: no acute disease. Objective - Vital Signs/Intake and Output Vital Signs (last 24 hours): Temp Pulse Resp BP Pulse Ox 98.5 F 71 18 103/60 96 12/14/16 05:27 12/14/16 05:39 12/14/16 05:27 12/14/16 05:27 12/14/16 05:27 Intake and Output: 12/14/16 12/14/16 06:59 18:59 Intake Total 1000 Balance 1000 - Medications Medications: Current Medications Acetaminophen (Tylenol 325mg Tab) 650 mg PO Q4H PRN PRN Reason: Pain, moderate (4-7) Last Admin: 12/04/16 05:51 Dose: 650 mg Acetaminophen (Tylenol 650 Mg Supp) 650 mg RC Q4H PRN PRN Reason: Fever >100.4 F Atorvastatin Calcium (Lipitor) 20 mg PO DIN [facility] Last Admin: 12/13/16 18:22 Dose: Not Given Benzocaine/Menthol (Cepacol Sore Throat) 1 leo MT Q2H PRN PRN Reason: Sore Throat Last Admin: 12/09/16 20:24 Dose: 1 leo Carvedilol (Coreg) 3.125 mg PO BID [facility] Last Admin: 12/10/16 17:18 Dose: 3.125 mg Famotidine (Pepcid) 20 mg IVP HS [facility] Last Admin: 12/13/16 22:37 Dose: 20 mg Potassium Chloride 20 meq/ (Dextrose/Sodium Chloride) 1,010 mls @ 75 mls/hr IV .[id number] [facility] Last Admin: 12/13/16 22:49 Dose: 75 mls/hr Iron Sucrose 100 mg/ Sodium (Chloride) 105 mls @ 210 mls/hr IVPB DAILY [facility] Stop: 12/17/16 10:29 Potassium Chloride (Potassium Chloride 20 Meq/100 Ml) 100 mls @ 50 mls/hr IVPB Q2H [facility] Stop: 12/14/16 11:44 Last Admin: 12/14/16 08:30 Dose: 50 mls/hr Ketorolac Tromethamine (Toradol) 30 mg IVP Q6H PRN PRN Reason: Pain, moderate (4-7) Last Admin: 12/14/16 00:12 Dose: 30 mg Metoprolol Tartrate (Lopressor) 5 mg IVP Q6H [facility] Last Admin: 12/14/16 04:01 Dose: Not Given Ondansetron HCl (Zofran Inj) 4 mg IVP Q6H PRN PRN Reason: Nausea/Vomiting Pantoprazole Sodium (Protonix Inj) 40 mg IVP DAILY [facility] Last Admin: 12/13/16 10:36 Dose: 40 mg Vitamin A (Vitamin A & D Oint Ud Foilpak) 1 ea TOP Q6 [facility] Last Admin: 12/14/16 00:12 Dose: Not Given - Labs Labs: 12/14/16 06:45 12/14/16 06:45 PT 10.6 Seconds (9.9-11.8) 12/11/16 15:20 INR 0.98 (0.93-1.08) 12/11/16 15:20 APTT 23.8 Seconds (23.7-30.8) 12/11/16 15:20 Assessment and Plan - Assessment and Plan (Free Text) Plan: Assessment: Active LGI Bleeding from Sigmoid Colon S/P extended left hemicolectomy Post-op Ileus H/O diverticulosis with remote GIB Severe MR Mild/mod. LVD, possible related to chemo tx. Breast cancer s/p mastectomy and chemo. HLD GERD Plan: Replace K+ GI and Surg. F/U Adv. diet as per surgery and GI. Monitor I/O. High Risk for CHF due to sev. MR and mod. LVD IV metoprolol > PO Coreg today Monitor: H/H, labs, I/O, sats., etc. OOB to chair as katrina. Will follow.
[2016-12-14] MEDS: Potassium Chloride 20 MEQ in Dextrose 5%/0.9% NS 1,000 ML IV SCH (12:06)
[2016-12-14 14:29] LABS: BLOOD UREA NITROGEN 4 mg/dL (7-21); CALCIUM 7.5 mg/dL (8.4-10.5); CARBON DIOXIDE 29 mmol/L (21-33); CHLORIDE 106 mmol/L (98-107); GFR AFRICAN-AMERICAN > 60; GLUCOSE,RANDOM 104 mg/dL (70-110); POTASSIUM 3.7 mmol/L (3.6-5.0); SODIUM 139 mmol/L (132-148)
[2016-12-14] MEDS ORDERED: Potassium Chloride 20 mEq ER Tab PO ONE (15:05)
--- NOTE | 2016-12-14 15:17 | CP.PCM.PN ---
<Wilbur Jones - Last Filed: 12/14/16 15:12> Subjective - Date & Time of Evaluation Date of Evaluation: 12/14/16 Time of Evaluation: 08:30 - Subjective Subjective: Dr. Jones PGY 1 Hospitalist Note Patient seen and evaluated with attending. Patient sitting up in chair after eating breakfast. She says she is tolerating her diet well. Yesterday she complained of neck and face pain but says it resolved after having the NG tube removed. She denies any current neck pain. She also denies any SOB, cough, chest pain, palpitations, nausea, vomiting, but has some tenderness along suture site. Per nursing, no acute events over night. Objective - Vital Signs/Intake and Output Vital Signs (last 24 hours): Temp Pulse Resp BP Pulse Ox 98.1 F 87 20 97/64 L 96 12/14/16 12:51 12/14/16 12:51 12/14/16 12:51 12/14/16 12:51 12/14/16 05:27 Intake and Output: 12/14/16 12/14/16 06:59 18:59 Intake Total 1000 480 Output Total 700 Balance 1000 -220 - Medications Medications: Current Medications Acetaminophen (Tylenol 325mg Tab) 650 mg PO Q4H PRN PRN Reason: Pain, moderate (4-7) Last Admin: 12/04/16 05:51 Dose: 650 mg Acetaminophen (Tylenol 650 Mg Supp) 650 mg RC Q4H PRN PRN Reason: Fever >100.4 F Alprazolam (Xanax) 0.25 mg PO Q6 PRN; Protocol PRN Reason: Anxiety Stop: 12/21/16 18:01 Atorvastatin Calcium (Lipitor) 20 mg PO DIN [facility] Last Admin: 12/13/16 18:22 Dose: Not Given Benzocaine/Menthol (Cepacol Sore Throat) 1 leo MT Q2H PRN PRN Reason: Sore Throat Last Admin: 12/09/16 20:24 Dose: 1 leo Carvedilol (Coreg) 3.125 mg PO BID [facility] Last Admin: 12/14/16 10:53 Dose: Not Given Ketorolac Tromethamine (Toradol) 30 mg IM Q8H PRN PRN Reason: Pain, moderate (4-7) Stop: 12/19/16 15:02 Metoprolol Tartrate (Lopressor) 5 mg IVP Q6H [facility] Last Admin: 12/14/16 04:01 Dose: Not Given Ondansetron HCl (Zofran Odt) 4 mg PO Q8H PRN PRN Reason: Nausea/Vomiting Pantoprazole Sodium (Protonix Ec Tab) 40 mg PO 0730,1630 [facility] Vitamin A (Vitamin A & D Oint Ud Foilpak) 1 ea TOP Q6 [facility] Last Admin: 12/14/16 00:12 Dose: Not Given - Labs Labs: 12/14/16 06:45 12/14/16 14:13 PT 10.6 Seconds (9.9-11.8) 12/11/16 15:20 INR 0.98 (0.93-1.08) 12/11/16 15:20 APTT 23.8 Seconds (23.7-30.8) 12/11/16 15:20 - Constitutional Appears: Non-toxic, No Acute Distress - Head Exam Head Exam: ATRAUMATIC, NORMOCEPHALIC - Eye Exam Eye Exam: EOMI, Normal appearance, PERRL Pupil Exam: NORMAL ACCOMODATION, PERRL - ENT Exam ENT Exam: Mucous Membranes Moist, Normal Oropharynx - Neck Exam Neck Exam: absent: Normal Inspection (central line in place), Tenderness - Respiratory Exam Respiratory Exam: Clear to Ausculation Bilateral, NORMAL BREATHING PATTERN. absent: Rales, Rhonchi, Wheezes - Cardiovascular Exam Cardiovascular Exam: REGULAR RHYTHM, +S1, +S2, Murmur (+2 systolic). absent: Gallop, Rubs - GI/Abdominal Exam GI & Abdominal Exam: Soft, Tenderness (along suture), Normal Bowel Sounds Additional comments: colostomy bag in place with pink stoma and brown fecal matter - Extremities Exam Extremities Exam: Normal Inspection, Pedal Edema (+1 edema). absent: Tenderness - Back Exam Back Exam: NORMAL INSPECTION. absent: rash noted, tenderness - Neurological Exam Neurological Exam: Alert, Awake, CN II-XII Intact, Oriented x3 - Psychiatric Exam Psychiatric exam: Normal Affect, Normal Mood - Skin Skin Exam: Dry, Intact, Normal Color, Warm Assessment and Plan - Assessment and Plan (Free Text) Assessment: 71 yo F with PMHx of valvular heart disease, GI bleed, and breast cancer presenting with hematochezia. s/p POD# 7 L hemicolectomy. Plan: 1) GI bleed/hematochezia * GI consult. Dr. Kam. recs appreciated * Surgery following, Dr. Skelton, appreciate recs * s/p LT hemicolectomy, End colostomy day 7 * s/p multiple pRBC infusions * Hemoglobin 8.9 today * NG tube removed * Remains afebrile w/o leukocytosis * continue to monitor daily for bleeding * CBC daily, continue to monitor * CT shows diverticulosis, esophagitis, cystic structure 2.2 cm pancreatic neck * Colonoscopy / showed diverticula throughout colon, small amount of blood in terminal ileum. No active bleeding appreciated (see full report) * Advance diet as tolerated * Continue IV Iron * Continue Protonix * Continue telemetry * FS Q6, maintain euglycemia 2)Hx of HTN * Coreg, * IV metoprolol (held) 3)Hx of HLD * continue home statin 4) Hx of valvular heart disease * cardio consult. Dr. Barber. recs appreciated * IV metoprolol (held) * Monitor I&O 5) Hypokalemia * 3.3 today, repleted, and repeat value is 3.7 PPx protonix SCD Assessment and plan discussed with attending physician. <Gaurang Ascencio - Last Filed: 12/14/16 16:52> Objective - Vital Signs/Intake and Output Vital Signs (last 24 hours): Temp Pulse Resp BP Pulse Ox 98.1 F 87 20 97/64 L 96 12/14/16 12:51 12/14/16 12:51 12/14/16 12:51 12/14/16 12:51 12/14/16 05:27 Intake and Output: 12/14/16 12/14/16 06:59 18:59 Intake Total 1000 480 Output Total 700 Balance 1000 -220 - Medications Medications: Current Medications Acetaminophen (Tylenol 325mg Tab) 650 mg PO Q4H PRN PRN Reason: Pain, moderate (4-7) Last Admin: 12/04/16 05:51 Dose: 650 mg Acetaminophen (Tylenol 650 Mg Supp) 650 mg RC Q4H PRN PRN Reason: Fever >100.4 F Alprazolam (Xanax) 0.25 mg PO Q6 PRN; Protocol PRN Reason: Anxiety Stop: 12/21/16 18:01 Atorvastatin Calcium (Lipitor) 20 mg PO DIN [facility] Last Admin: 12/13/16 18:22 Dose: Not Given Benzocaine/Menthol (Cepacol Sore Throat) 1 leo MT Q2H PRN PRN Reason: Sore Throat Last Admin: 12/09/16 20:24 Dose: 1 leo Carvedilol (Coreg) 3.125 mg PO BID [facility] Last Admin: 12/14/16 10:53 Dose: Not Given Ketorolac Tromethamine (Toradol) 30 mg IM Q8H PRN PRN Reason: Pain, moderate (4-7) Metoprolol Tartrate (Lopressor) 5 mg IVP Q6H [facility] Last Admin: 12/14/16 04:01 Dose: Not Given Ondansetron HCl (Zofran Odt) 4 mg PO Q8H PRN PRN Reason: Nausea/Vomiting Pantoprazole Sodium (Protonix Ec Tab) 40 mg PO 0730,1630 [facility] Last Admin: 12/14/16 15:57 Dose: 40 mg Vitamin A (Vitamin A & D Oint Ud Foilpak) 1 ea TOP Q6 [facility] Last Admin: 12/14/16 12:00 Dose: Not Given - Labs Labs: 12/14/16 06:45 12/14/16 14:13 PT 10.6 Seconds (9.9-11.8) 12/11/16 15:20 INR 0.98 (0.93-1.08) 12/11/16 15:20 APTT 23.8 Seconds (23.7-30.8) 12/11/16 15:20 Attending/Attestation - Attestation I have personally seen and examined this patient.: Yes I have fully participated in the care of the patient.: Yes I have reviewed all pertinent clinical information, including history, physical exam and plan: Yes Notes (Text): 12/14/16 16:46 71 year old female with past medical history of valvular heart disease, breast cancer, and GIB presented with hematochezia and anemia. She has received multiple blood transfusions since admission. She had a CT abd/pelvis which showed diverticulosis and colonoscopy which showed scattered diverticula without active bleeding. She is being followed by GI and surgery. She is s/p hemicolectomy. Her hemoglobin is stable. She is on iv iron and received prbc transfusion yesterday. Her hemoglobin today is 9.9. Her NGT was removed yesterday. She is out of bed to chair today; tolerating diet. Cardiology is also following patient for history of valvular heart disease and hypertension. She received potassium supplementation for hypokalemia. Continue with physical therapy as tolerated. D/c planning to [facility] next week if no acute issues. Gaurang Ascencio MD Hospitalist.
[2016-12-14] MEDS: Pantoprazole 40 mg EC Tab PO SCH (15:57)
--- NOTE | 2016-12-14 16:01 | PN ---
DATE: 12/14/2016 SUBJECTIVE: This patient was seen and evaluated earlier. The patient's daughter was at bedside, on liquid diet, tolerating. PHYSICAL EXAMINATION: VITAL SIGNS: Temperature is 98.1, pulse 87, blood pressure 97/64. HEENT: Atraumatic, anicteric. NECK: Supple. HEART: S1, S2 heard. There is a systolic murmur present. ABDOMEN: Soft. There is a colostomy with brown liquid stool present. EXTREMITIES: no cyanosis, no clubbing. LABORATORY DATA: Hemoglobin 9.9, hematocrit 30.6, WBC 5.9, platelets 208. BUN 4, creatinine 0.5. IMPRESSION: This 71-year-old patient is status post extended left hemicolectomy for massive GI bleed ing, now has a stable hemoglobin. The patient had a small ileus, improving on a liquid diet, tolerat ing. Advance the diet as per surgery. Other comorbidities include severe mitral regurgitation, hist ory of breast cancer, status post mastectomy, status post chemo, dysfunction and chronic gastro esophageal reflux disease. PLAN: Supplement the potassium. Followup of the hemoglobin and hematocrit. Advance the diet as per surgery. Kain Kam MD cc: [phone] TT: 12/14/2016 16:00:45 Confirmation # [id number] Dictation # [id number] jolie
[2016-12-15] MEDS: Vitamins A & D Oint UD Foilpak TOP SCH ×3 (00:32→23:27)
[2016-12-15 07:00] LABS: ADD MANUAL DIFF? NO
[2016-12-15 07:22] LABS: BASO # 0.03 K/mm3 (0.0-2.0); BASO % 0.4 % (0.0-3.0); EOS # 0.2 (0.0-0.7); GRAN # 5.94 (1.4-6.5); GRAN % 77.4 % (50.0-68.0); HEMATOCRIT 33.3 % (36.0-48.0); LYMPH % 13.3 % (22.0-35.0); MEAN CELL VOLUME 89.8 fL (80.0-105.0); MEAN CORPUSCULAR HEMOGLOBIN 28.8 pg (25.0-35.0); MEAN CORPUSCULAR HGB CONC 32.1 g/dl (31.0-37.0); MEAN PLATELET VOLUME 10.2 fl (7.0-11.0); MONO # 0.5 (0.1-0.6); MONO % 6.9 % (1.0-6.0); PLATELET COUNT 254 10^3/uL (120.0-450.0); RED CELL DISTRIBUTION WIDTH 15.9 % (11.5-14.5); WHITE BLOOD COUNT 7.7 10^3/ul (4.5-11.0)
--- NOTE | 2016-12-15 07:52 | CP.PCM.PN ---
Subjective - Date & Time of Evaluation Date of Evaluation: 12/15/16 Time of Evaluation: 08:00 - Subjective Subjective: Stable on 2R. No CP or SOB. She feels better but still weak. Katrina diet well>reg today. V/S noted. RSR PE: Lungs: rhonchi Cor.: S1S2, sys murmur Abd.: soft. Colostomy. Ext.: no edema Neuro.: alert Labs noted 12/14. H/H= 9.9/30.6, K+= 3.7 BC NG at 5 days CXR 12/11: no interval pathology. ECG 12/09 noted: S.Tachy., LAHB, PRWP, STTW changes, No change except slower rate. C abd. and pelvis: no acute disease. Objective - Vital Signs/Intake and Output Vital Signs (last 24 hours): Temp Pulse Resp BP Pulse Ox 98.1 F 82 20 110/55 L 95 12/15/16 06:00 12/15/16 06:00 12/15/16 06:00 12/15/16 06:00 12/15/16 06:00 - Medications Medications: Current Medications Acetaminophen (Tylenol 325mg Tab) 650 mg PO Q4H PRN PRN Reason: Pain, moderate (4-7) Last Admin: 12/04/16 05:51 Dose: 650 mg Acetaminophen (Tylenol 650 Mg Supp) 650 mg RC Q4H PRN PRN Reason: Fever >100.4 F Alprazolam (Xanax) 0.25 mg PO Q6 PRN; Protocol PRN Reason: Anxiety Stop: 12/21/16 18:01 Atorvastatin Calcium (Lipitor) 20 mg PO DIN [facility] Last Admin: 12/14/16 17:35 Dose: Not Given Benzocaine/Menthol (Cepacol Sore Throat) 1 leo MT Q2H PRN PRN Reason: Sore Throat Last Admin: 12/09/16 20:24 Dose: 1 leo Carvedilol (Coreg) 3.125 mg PO BID [facility] Last Admin: 12/14/16 17:36 Dose: Not Given Ketorolac Tromethamine (Toradol) 30 mg IM Q8H PRN PRN Reason: Pain, moderate (4-7) Ondansetron HCl (Zofran Odt) 4 mg PO Q8H PRN PRN Reason: Nausea/Vomiting Pantoprazole Sodium (Protonix Ec Tab) 40 mg PO 0730,1630 [facility] Last Admin: 12/14/16 15:57 Dose: 40 mg Tramadol HCl (Ultram) 50 mg PO TID PRN PRN Reason: Pain, severe (8-10) Last Admin: 12/14/16 20:52 Dose: 50 mg Vitamin A (Vitamin A & D Oint Ud Foilpak) 1 ea TOP Q6 [facility] Last Admin: 12/15/16 05:31 Dose: Not Given - Labs Labs: 12/14/16 06:45 12/14/16 14:13 PT 10.6 Seconds (9.9-11.8) 12/11/16 15:20 INR 0.98 (0.93-1.08) 12/11/16 15:20 APTT 23.8 Seconds (23.7-30.8) 12/11/16 15:20 Assessment and Plan - Assessment and Plan (Free Text) Plan: Assessment: Active LGI Bleeding from Sigmoid Colon diverticula S/P extended left hemicolectomy Post-op Ileus H/O diverticulosis with remote GIB Severe MR Mild/mod. LVD, possible related to chemo tx. Breast cancer s/p mastectomy and chemo. HLD GERD Plan: Replace K+ GI and Surg. F/U Adv. diet as per surgery and GI. Monitor I/O. High Risk for CHF due to sev. MR and mod. LVD Monitor: H/H, labs, I/O, sats., etc. OOB to chair as katrina. EMMA soon. Will follow.
--- NOTE | 2016-12-15 08:02 | CP.PCM.PN ---
<Aleyda Palm - Last Filed: 12/15/16 07:59> Subjective - Date & Time of Evaluation Date of Evaluation: 12/15/16 Time of Evaluation: 07:59 - Subjective Subjective: Surgery for Dr. Anand Pt s &mariano HOWARD. Denies F/C/N/V/D/CP/SOB. Ostomy intact. Tolerating FLD. +amb, + OOB, +void Objective - Vital Signs/Intake and Output Vital Signs (last 24 hours): Temp Pulse Resp BP Pulse Ox 98.1 F 82 20 110/55 L 95 12/15/16 06:00 12/15/16 06:00 12/15/16 06:00 12/15/16 06:00 12/15/16 06:00 - Medications Medications: Current Medications Acetaminophen (Tylenol 325mg Tab) 650 mg PO Q4H PRN PRN Reason: Pain, moderate (4-7) Last Admin: 12/04/16 05:51 Dose: 650 mg Acetaminophen (Tylenol 650 Mg Supp) 650 mg RC Q4H PRN PRN Reason: Fever >100.4 F Alprazolam (Xanax) 0.25 mg PO Q6 PRN; Protocol PRN Reason: Anxiety Stop: 12/21/16 18:01 Atorvastatin Calcium (Lipitor) 20 mg PO DIN [facility] Last Admin: 12/14/16 17:35 Dose: Not Given Benzocaine/Menthol (Cepacol Sore Throat) 1 leo MT Q2H PRN PRN Reason: Sore Throat Last Admin: 12/09/16 20:24 Dose: 1 leo Carvedilol (Coreg) 3.125 mg PO BID [facility] Last Admin: 12/14/16 17:36 Dose: Not Given Ketorolac Tromethamine (Toradol) 30 mg IM Q8H PRN PRN Reason: Pain, moderate (4-7) Ondansetron HCl (Zofran Odt) 4 mg PO Q8H PRN PRN Reason: Nausea/Vomiting Pantoprazole Sodium (Protonix Ec Tab) 40 mg PO 0730,1630 [facility] Last Admin: 12/14/16 15:57 Dose: 40 mg Potassium Chloride (K-Dur 20 Meq Er Tab) 20 meq PO BID [facility] Tramadol HCl (Ultram) 50 mg PO TID PRN PRN Reason: Pain, severe (8-10) Last Admin: 12/14/16 20:52 Dose: 50 mg Vitamin A (Vitamin A & D Oint Ud Foilpak) 1 ea TOP Q6 [facility] Last Admin: 12/15/16 05:31 Dose: Not Given - Labs Labs: 12/15/16 06:57 12/14/16 14:13 PT 10.6 Seconds (9.9-11.8) 12/11/16 15:20 INR 0.98 (0.93-1.08) 12/11/16 15:20 APTT 23.8 Seconds (23.7-30.8) 12/11/16 15:20 - Constitutional Appears: No Acute Distress - Head Exam Head Exam: ATRAUMATIC, NORMAL INSPECTION, NORMOCEPHALIC - Eye Exam Eye Exam: EOMI, Normal appearance, PERRL Pupil Exam: NORMAL ACCOMODATION, PERRL - ENT Exam ENT Exam: Mucous Membranes Moist, Normal Exam - Neck Exam Neck Exam: Full ROM, Normal Inspection. absent: Lymphadenopathy - Respiratory Exam Respiratory Exam: Clear to Ausculation Bilateral, NORMAL BREATHING PATTERN - Cardiovascular Exam Cardiovascular Exam: REGULAR RHYTHM, +S1, +S2. absent: Murmur - GI/Abdominal Exam GI & Abdominal Exam: Soft, Tenderness, Normal Bowel Sounds. absent: Distended, Firm, Guarding, Rigid Additional comments: Incisions D/I. Ostomy dark brown liquid. SONU in place: Scant output - Exam Exam: NORMAL INSPECTION - Extremities Exam Extremities Exam: Full ROM, Normal Capillary Refill, Normal Inspection - Back Exam Back Exam: NORMAL INSPECTION - Psychiatric Exam Psychiatric exam: Normal Affect, Normal Mood - Skin Skin Exam: Dry, Intact, Normal Color, Warm Assessment and Plan - Assessment and Plan (Free Text) Assessment: This is a 71F with a PMH of Breast CA and Diverticulosis who presented with a GI bleed who is POD#8 s/p left colectomy and transverse colostomy: Stable DC RIJ Central Line: Off IV meds Wound care: [place] with betadine twice daily Monitor ostomy output: patent, functioning. Toradol for pain no narcotics Replenish K as needed. Advance to regular diet f/u Placememnt per case mgr: OK to DC home for surgical standpoint. F/u With Dr. Osuna in 10 day after DC for nicko removal Will discuss with Dr. Osuna <Cirilo Osuna - Last Filed: 03/19/17 23:37> Objective - Vital Signs/Intake and Output Vital Signs (last 24 hours): Temp Pulse Resp BP Pulse Ox 98 F 78 18 111/67 95 12/17/16 12:00 12/17/16 12:00 12/17/16 12:00 12/17/16 12:00 12/16/16 06:00 - Labs Labs: 12/16/16 06:30 12/16/16 06:30 PT 10.6 Seconds (9.9-11.8) 12/11/16 15:20 INR 0.98 (0.93-1.08) 12/11/16 15:20 APTT 23.8 Seconds (23.7-30.8) 12/11/16 15:20 Assessment and Plan - Assessment and Plan (Free Text) Plan: Patient was seen and examined by me. I agree with assessment and plan as per resident's note.
[2016-12-15] MEDS: Pantoprazole 40 mg EC Tab PO SCH ×2 (08:10→17:06)
[2016-12-15 09:02] LABS: ALB/GLOB RATIO 0.8 (1.1-1.8); ALKALINE PHOSPHATASE 48 U/L (38-133); ALT/SGPT 34 U/L (7-56); AST/SGOT 28 U/L (15-39); BILIRUBIN,TOTAL 0.6 mg/dL (0.2-1.3); BLOOD UREA NITROGEN 4 mg/dL (7-21); CALCIUM 8.4 mg/dL (8.4-10.5); CARBON DIOXIDE 31 mmol/L (21-33); CHLORIDE 103 mmol/L (98-107); GFR AFRICAN-AMERICAN > 60; GLUCOSE,RANDOM 93 mg/dL (70-110); MAGNESIUM 2.1 mg/dL (1.7-2.2); POTASSIUM 4.2 mmol/L (3.6-5.0); SODIUM 139 mmol/L (132-148)
[2016-12-15] MEDS: Potassium Chloride 20 mEq ER Tab PO SCH ×2 (09:36→17:06)
--- NOTE | 2016-12-15 13:13 | CP.PCM.PN ---
<Aminta Palm - Last Filed: 12/16/16 06:55> Subjective - Date & Time of Evaluation Date of Evaluation: 12/15/16 Time of Evaluation: 08:55 - Subjective Subjective: Pt seen and evaluated at the bedside. Abdomen is still sore, and is observed sitting up comfortably on N/C. Pt is eating. Around 9AM today, pt had short and self resolved episode of 7 v-tach. Afebrile overnight. Objective - Vital Signs/Intake and Output Vital Signs (last 24 hours): Temp Pulse Resp BP Pulse Ox 97.9 F 98 H 20 93/64 L 95 12/15/16 11:43 12/15/16 11:43 12/15/16 11:43 12/15/16 11:43 12/15/16 06:00 - Medications Medications: Current Medications Acetaminophen (Tylenol 325mg Tab) 650 mg PO Q4H PRN PRN Reason: Pain, moderate (4-7) Last Admin: 12/04/16 05:51 Dose: 650 mg Acetaminophen (Tylenol 650 Mg Supp) 650 mg RC Q4H PRN PRN Reason: Fever >100.4 F Alprazolam (Xanax) 0.25 mg PO Q6 PRN; Protocol PRN Reason: Anxiety Stop: 12/21/16 18:01 Atorvastatin Calcium (Lipitor) 20 mg PO DIN [facility] Last Admin: 12/14/16 17:35 Dose: Not Given Benzocaine/Menthol (Cepacol Sore Throat) 1 leo MT Q2H PRN PRN Reason: Sore Throat Last Admin: 12/09/16 20:24 Dose: 1 leo Carvedilol (Coreg) 3.125 mg PO BID [facility] Last Admin: 12/15/16 09:35 Dose: Not Given Ketorolac Tromethamine (Toradol) 30 mg IM Q8H PRN PRN Reason: Pain, moderate (4-7) Ondansetron HCl (Zofran Odt) 4 mg PO Q8H PRN PRN Reason: Nausea/Vomiting Pantoprazole Sodium (Protonix Ec Tab) 40 mg PO 0730,1630 [facility] Last Admin: 12/15/16 08:10 Dose: 40 mg Potassium Chloride (K-Dur 20 Meq Er Tab) 20 meq PO BID [facility] Last Admin: 04/16/17 09:36 Dose: 20 meq Tramadol HCl (Ultram) 50 mg PO TID PRN PRN Reason: Pain, severe (8-10) Last Admin: 12/14/16 20:52 Dose: 50 mg Vitamin A (Vitamin A & D Oint Ud Foilpak) 1 ea TOP Q6 [facility] Last Admin: 12/15/16 05:31 Dose: Not Given - Labs Labs: 12/15/16 06:57 12/15/16 06:57 PT 10.6 Seconds (9.9-11.8) 12/11/16 15:20 INR 0.98 (0.93-1.08) 12/11/16 15:20 APTT 23.8 Seconds (23.7-30.8) 12/11/16 15:20 - Additional Findings Additional findings: - Eye Exam Eye Exam: EOMI, PERRL - ENT Exam ENT Exam: Mucous Membranes Moist, Normal Oropharynx - Neck Exam Neck Exam: absent: Normal Inspection (central line in place), Tenderness - Respiratory Exam Respiratory Exam: Clear to Ausculation Bilateral, NORMAL BREATHING PATTERN. absent: Rales, Rhonchi, Wheezes - Cardiovascular Exam Cardiovascular Exam: REGULAR RHYTHM, +S1, +S2, Murmur (+2 systolic). absent: Gallop, Rubs - GI/Abdominal Exam GI & Abdominal Exam: Soft, Tenderness (along suture), Normal Bowel Sounds Additional comments: colostomy bag in place - Extremities Exam Extremities Exam: Normal Inspection, Pedal Edema (+1 edema). absent: Tenderness - Back Exam Back Exam: NORMAL INSPECTION. absent: rash noted, tenderness - Neurological Exam Neurological Exam: Alert, Awake - Psychiatric Exam Psychiatric exam: Normal Affect, Normal Mood - Skin Skin Exam: Dry, Intact, Normal Color, Warm Assessment and Plan - Assessment and Plan (Free Text) Plan: 71 yo F with PMHx of valvular heart disease, GI bleed, and breast cancer presenting with hematochezia. s/p POD# 8 L hemicolectomy. Plan: 1) GI bleed/hematochezia * GI consult. Dr. Kam. recs appreciated * Surgery following, Dr. 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 No active bleeding appreciated (see full report) * Advance diet as tolerated * Continue IV Iron * Continue Protonix * FS Q6, maintain euglycemia 2)Hx of HTN * Coreg on board, IV metoprolol (held) 3)Hx of HLD * continue home statin 4) Hx of valvular heart disease * cardio consult. Dr. Barber. recs appreciated * IV metoprolol (held) * Monitor I&O 5) Hypokalemia * 4.2 today, resolved PPx protonix SCD Assessment and plan discussed with attending physician. <Gaurang Ascencio - Last Filed: 12/16/16 12:15> Objective - Vital Signs/Intake and Output Vital Signs (last 24 hours): Temp Pulse Resp BP Pulse Ox 98.2 F 84 20 100/65 95 12/16/16 06:00 12/16/16 06:00 12/16/16 06:00 12/16/16 06:00 12/16/16 06:00 Intake and Output: 12/16/16 12/16/16 06:59 18:59 Intake Total 360 Output Total 985 Balance -625 - Medications Medications: Current Medications Acetaminophen (Tylenol 325mg Tab) 650 mg PO Q4H PRN PRN Reason: Pain, moderate (4-7) Last Admin: 12/04/16 05:51 Dose: 650 mg Acetaminophen (Tylenol 650 Mg Supp) 650 mg RC Q4H PRN PRN Reason: Fever >100.4 F Alprazolam (Xanax) 0.25 mg PO Q6 PRN; Protocol PRN Reason: Anxiety Stop: 12/21/16 18:01 Atorvastatin Calcium (Lipitor) 20 mg PO DIN [facility] Last Admin: 12/15/16 17:02 Dose: Not Given Benzocaine/Menthol (Cepacol Sore Throat) 1 leo MT Q2H PRN PRN Reason: Sore Throat Last Admin: 12/09/16 20:24 Dose: 1 leo Carvedilol (Coreg) 3.125 mg PO BID [facility] Last Admin: 12/16/16 09:22 Dose: 3.125 mg Ketorolac Tromethamine (Toradol) 30 mg IM Q8H PRN PRN Reason: Pain, moderate (4-7) Ondansetron HCl (Zofran Odt) 4 mg PO Q8H PRN PRN Reason: Nausea/Vomiting Pantoprazole Sodium (Protonix Ec Tab) 40 mg PO ACB [facility] Last Admin: 12/16/16 08:34 Dose: 40 mg Potassium Chloride (K-Dur 20 Meq Er Tab) 20 meq PO BID [facility] Last Admin: 12/16/16 09:22 Dose: 20 meq Tramadol HCl (Ultram) 50 mg PO TID PRN PRN Reason: Pain, severe (8-10) Last Admin: 12/15/16 18:59 Dose: 50 mg Vitamin A (Vitamin A & D Oint Ud Foilpak) 1 ea TOP Q6 [facility] Last Admin: 12/16/16 06:55 Dose: Not Given - Labs Labs: 12/16/16 06:30 12/16/16 06:30 PT 10.6 Seconds (9.9-11.8) 12/11/16 15:20 INR 0.98 (0.93-1.08) 12/11/16 15:20 APTT 23.8 Seconds (23.7-30.8) 12/11/16 15:20 Attending/Attestation - Attestation I have personally seen and examined this patient.: Yes I have fully participated in the care of the patient.: Yes I have reviewed all pertinent clinical information, including history, physical exam and plan: Yes Notes (Text): 12/15/16 71 year old female with past medical history of valvular heart disease, breast cancer, and GIB presented with hematochezia and anemia. She has received multiple blood transfusions since admission. She had a CT abd/pelvis which showed diverticulosis and colonoscopy which showed scattered diverticula without active bleeding. She is being followed by GI and surgery. She is s/p hemicolectomy. Her hemoglobin is stable. She is out of bed to chair today and is tolerating diet. Cardiology is also following patient for history of valvular heart disease and hypertension. Overall she has been doing well for the past few days. She is cleared for discharge by surgery. Will request PT follow up for d/c planning. Gaurang Ascencio MD Hospitalist.
--- NOTE | 2016-12-15 19:44 | PN ---
DATE: 12/15/2016 ADDENDUM: SUBJECTIVE: This patient was seen and evaluated earlier. The patient's daughter was at bedside, katrina erating the diet, ambulating well. PHYSICAL EXAMINATION: VITAL SIGNS: Temperature 98.1, pulse 107, blood pressure 107/66. HEENT: Atraumatic, anicteric. NECK: Supple. HEART: S1, S2 heard. LUNGS: Bilateral air entry present. ABDOMEN: Soft. Colostomy functioning well. EXTREMITIES: No edema, no cyanosis. LABORATORY DATA: Hemoglobin 10.7, hematocrit 33.3, WBC is 7.7, platelets 254. BUN, creatinine 1.7. IMPRESSION: This is a 71-year-old patient with status post extended left hemicolectomy for massive l ower gastrointestinal bleeding from diverticulosis. The patient has been doing well now, tolerating the diet. The patient is on Protonix 40 mg twice daily. We will reduce the dose to once daily and f ollowup of the hemoglobin and hematocrit. The patient would need elective colonoscopic evaluation to the reversal. Discussed with the patient at length and the patient's family at length, who understo od. Thank you very much for allowing us to participate in the care of the patient. Kain Kam MD cc: [phone] TT: 12/15/2016 19:43:15 Confirmation # [id number] Dictation # [id number] willie
[2016-12-15] MEDS ORDERED: Alum-Mag Hydrox-Simethicone Susp (30 mL) PO ONE (21:07)
[2016-12-16] MEDS: Vitamins A & D Oint UD Foilpak TOP SCH ×3 (00:52→17:14)
[2016-12-16 06:24] VITALS: O2SAT 95
[2016-12-16 06:36] LABS: ADD MANUAL DIFF? NO
[2016-12-16 06:55] LABS: BASO # 0.01 K/mm3 (0.0-2.0); BASO % 0.1 % (0.0-3.0); EOS # 0.2 (0.0-0.7); EOS % 2.2 % (1.5-5.0); GRAN % 80.3 % (50.0-68.0); HEMATOCRIT 34.6 % (36.0-48.0); LYMPH # 0.9 (1.2-3.4); LYMPH % 10.8 % (22.0-35.0); MEAN CELL VOLUME 89.6 fL (80.0-105.0); MEAN CORPUSCULAR HGB CONC 32.4 g/dl (31.0-37.0); MEAN PLATELET VOLUME 10.4 fl (7.0-11.0); MONO # 0.5 (0.1-0.6); MONO % 6.6 % (1.0-6.0); PLATELET COUNT 271 10^3/uL (120.0-450.0); RED CELL DISTRIBUTION WIDTH 15.9 % (11.5-14.5); WHITE BLOOD COUNT 7.9 10^3/ul (4.5-11.0)
[2016-12-16 06:59] LABS: ALB/GLOB RATIO 0.8 (1.1-1.8); ALKALINE PHOSPHATASE 52 U/L (38-133); ALT/SGPT 30 U/L (7-56); AST/SGOT 24 U/L (15-39); BILIRUBIN,TOTAL 0.5 mg/dL (0.2-1.3); BLOOD UREA NITROGEN 6 mg/dL (7-21); CALCIUM 8.4 mg/dL (8.4-10.5); CARBON DIOXIDE 32 mmol/L (21-33); CHLORIDE 101 mmol/L (98-107); GFR AFRICAN-AMERICAN > 60; GLUCOSE,RANDOM 108 mg/dL (70-110); MAGNESIUM 2.2 mg/dL (1.7-2.2); POTASSIUM 4.1 mmol/L (3.6-5.0); SODIUM 139 mmol/L (132-148); TOTAL PROTEIN 6.4 g/dL (5.8-8.3)
--- NOTE | 2016-12-16 08:06 | CP.PCM.PN ---
Subjective - Date & Time of Evaluation Date of Evaluation: 12/16/16 Time of Evaluation: 08:00 - Subjective Subjective: Stable on 2R. No CP or SOB. She feels better but still weak. Katrina diet well. V/S noted. RSR PE: Lungs: rhonchi Cor.: S1S2, sys murmur Abd.: soft. Colostomy. Ext.: no edema Neuro.: alert Labs noted. BC NG at 5 days CXR 12/11: no interval pathology. ECG 12/09 noted: S.Tachy., LAHB, PRWP, STTW changes, No change except slower rate. C abd. and pelvis: no acute disease. Objective - Vital Signs/Intake and Output Vital Signs (last 24 hours): Temp Pulse Resp BP Pulse Ox 98.2 F 84 20 100/65 95 12/16/16 06:00 12/16/16 06:00 12/16/16 06:00 12/16/16 06:00 12/16/16 06:00 Intake and Output: 12/16/16 12/16/16 06:59 18:59 Intake Total 360 Output Total 985 Balance -625 - Medications Medications: Current Medications Acetaminophen (Tylenol 325mg Tab) 650 mg PO Q4H PRN PRN Reason: Pain, moderate (4-7) Last Admin: 12/04/16 05:51 Dose: 650 mg Acetaminophen (Tylenol 650 Mg Supp) 650 mg RC Q4H PRN PRN Reason: Fever >100.4 F Alprazolam (Xanax) 0.25 mg PO Q6 PRN; Protocol PRN Reason: Anxiety Stop: 12/21/16 18:01 Atorvastatin Calcium (Lipitor) 20 mg PO DIN [facility] Last Admin: 12/15/16 17:02 Dose: Not Given Benzocaine/Menthol (Cepacol Sore Throat) 1 leo MT Q2H PRN PRN Reason: Sore Throat Last Admin: 12/09/16 20:24 Dose: 1 leo Carvedilol (Coreg) 3.125 mg PO BID [facility] Last Admin: 12/15/16 17:02 Dose: Not Given Ketorolac Tromethamine (Toradol) 30 mg IM Q8H PRN PRN Reason: Pain, moderate (4-7) Ondansetron HCl (Zofran Odt) 4 mg PO Q8H PRN PRN Reason: Nausea/Vomiting Pantoprazole Sodium (Protonix Ec Tab) 40 mg PO ACB [facility] Potassium Chloride (K-Dur 20 Meq Er Tab) 20 meq PO BID [facility] Last Admin: 12/15/16 17:06 Dose: 20 meq Tramadol HCl (Ultram) 50 mg PO TID PRN PRN Reason: Pain, severe (8-10) Last Admin: 12/15/16 18:59 Dose: 50 mg Vitamin A (Vitamin A & D Oint Ud Foilpak) 1 ea TOP Q6 [facility] Last Admin: 12/16/16 06:55 Dose: Not Given - Labs Labs: 12/16/16 06:30 12/16/16 06:30 PT 10.6 Seconds (9.9-11.8) 12/11/16 15:20 INR 0.98 (0.93-1.08) 12/11/16 15:20 APTT 23.8 Seconds (23.7-30.8) 12/11/16 15:20 Assessment and Plan - Assessment and Plan (Free Text) Plan: Assessment: Active LGI Bleeding from Sigmoid Colon diverticula S/P extended left hemicolectomy Post-op Ileus H/O diverticulosis with remote GIB Severe MR Mild/mod. LVD, possible related to chemo tx. Breast cancer s/p mastectomy and chemo. HLD GERD Plan: GI and Surg. F/U OOB as katrina. EMMA or home soon.
[2016-12-16] MEDS: Pantoprazole 40 mg EC Tab PO SCH (08:34)
[2016-12-16] MEDS: Potassium Chloride 20 mEq ER Tab PO SCH ×2 (09:22→17:13)
--- NOTE | 2016-12-16 09:43 | CP.PCM.PN ---
<Igor Wesley - Last Filed: 12/16/16 09:40> Subjective - Date & Time of Evaluation Date of Evaluation: 12/16/16 Time of Evaluation: 06:43 - Subjective Subjective: General Surgery Progress Note for Dr. Osuna This 71F was seen and examined by me this morning at bedside. Nurse reports no acute events overnight. Patient on one to one for fall precautions. Patient reports she is a little sore. She is tolerating meals, denies fevers, chills, chest pain, SOB, nausea, vomiting. Objective - Vital Signs/Intake and Output Vital Signs (last 24 hours): Temp Pulse Resp BP Pulse Ox 98.2 F 84 20 100/65 95 12/16/16 06:00 12/16/16 06:00 12/16/16 06:00 12/16/16 06:00 12/16/16 06:00 Intake and Output: 12/16/16 12/16/16 06:59 18:59 Intake Total 360 Output Total 985 Balance -625 - Medications Medications: Current Medications Acetaminophen (Tylenol 325mg Tab) 650 mg PO Q4H PRN PRN Reason: Pain, moderate (4-7) Last Admin: 12/04/16 05:51 Dose: 650 mg Acetaminophen (Tylenol 650 Mg Supp) 650 mg RC Q4H PRN PRN Reason: Fever >100.4 F Alprazolam (Xanax) 0.25 mg PO Q6 PRN; Protocol PRN Reason: Anxiety Stop: 12/21/16 18:01 Atorvastatin Calcium (Lipitor) 20 mg PO DIN [facility] Last Admin: 12/15/16 17:02 Dose: Not Given Benzocaine/Menthol (Cepacol Sore Throat) 1 leo MT Q2H PRN PRN Reason: Sore Throat Last Admin: 12/09/16 20:24 Dose: 1 leo Carvedilol (Coreg) 3.125 mg PO BID [facility] Last Admin: 12/16/16 09:22 Dose: 3.125 mg Ketorolac Tromethamine (Toradol) 30 mg IM Q8H PRN PRN Reason: Pain, moderate (4-7) Ondansetron HCl (Zofran Odt) 4 mg PO Q8H PRN PRN Reason: Nausea/Vomiting Pantoprazole Sodium (Protonix Ec Tab) 40 mg PO ACB [facility] Last Admin: 12/16/16 08:34 Dose: 40 mg Potassium Chloride (K-Dur 20 Meq Er Tab) 20 meq PO BID [facility] Last Admin: 12/16/16 09:22 Dose: 20 meq Tramadol HCl (Ultram) 50 mg PO TID PRN PRN Reason: Pain, severe (8-10) Last Admin: 12/15/16 18:59 Dose: 50 mg Vitamin A (Vitamin A & D Oint Ud Foilpak) 1 ea TOP Q6 [facility] Last Admin: 12/16/16 06:55 Dose: Not Given - Labs Labs: 12/16/16 06:30 12/16/16 06:30 PT 10.6 Seconds (9.9-11.8) 12/11/16 15:20 INR 0.98 (0.93-1.08) 12/11/16 15:20 APTT 23.8 Seconds (23.7-30.8) 12/11/16 15:20 - Constitutional Appears: Non-toxic, No Acute Distress - Head Exam Head Exam: ATRAUMATIC, NORMOCEPHALIC - Eye Exam Eye Exam: EOMI, Normal appearance - ENT Exam ENT Exam: Mucous Membranes Moist, Normal Exam - Respiratory Exam Respiratory Exam: NORMAL BREATHING PATTERN - Cardiovascular Exam Cardiovascular Exam: +S1, +S2 - GI/Abdominal Exam GI & Abdominal Exam: Soft Additional comments: Midline incision clean dry and intact. Stoma pink and patent. - Neurological Exam Neurological Exam: Alert, Awake - Psychiatric Exam Psychiatric exam: Normal Affect, Normal Mood - Skin Skin Exam: Dry, Intact Assessment and Plan - Assessment and Plan (Free Text) Assessment: This is a 71F with a PMH of Breast CA and Diverticulosis who presented with a GI bleed who is POD#9 s/p left colectomy and transverse colostomy. Wound care: [place] with betadine twice daily Monitor ostomy output Vital signs stable no gross Lab abnormalities Continue regular diet Clear for discharge will rmove IJ before discharge Will discuss with Dr. Thao Wesley PGY-1 Please Page the Oncall surgical pager if you have any questions or concerns <Cirilo Osuna - Last Filed: 03/19/17 23:38> Objective - Vital Signs/Intake and Output Vital Signs (last 24 hours): Temp Pulse Resp BP Pulse Ox 98 F 78 18 111/67 95 12/17/16 12:00 12/17/16 12:00 12/17/16 12:00 12/17/16 12:00 12/16/16 06:00 - Labs Labs: 12/16/16 06:30 12/16/16 06:30 PT 10.6 Seconds (9.9-11.8) 12/11/16 15:20 INR 0.98 (0.93-1.08) 12/11/16 15:20 APTT 23.8 Seconds (23.7-30.8) 12/11/16 15:20 Assessment and Plan - Assessment and Plan (Free Text) Plan: Patient was seen and examined by me. I agree with assessment and plan as per resident's note.
--- NOTE | 2016-12-16 16:01 | CP.PCM.PN ---
<NéstorAminta - Last Filed: 12/16/16 16:23> Subjective - Date & Time of Evaluation Date of Evaluation: 12/16/16 Time of Evaluation: 08:45 - Subjective Subjective: Pt seen and evaluated at bedside. Denies N/V, sob. Reports decreased abdominal pain. No events overnight as per nursing. Afebrile. Objective - Vital Signs/Intake and Output Vital Signs (last 24 hours): Temp Pulse Resp BP Pulse Ox 98.4 F 102 H 20 97/61 L 95 12/16/16 12:00 12/16/16 13:00 12/16/16 12:00 12/16/16 12:00 12/16/16 06:00 Intake and Output: 12/16/16 12/16/16 06:59 18:59 Intake Total 360 Output Total 985 Balance -625 - Medications Medications: Current Medications Acetaminophen (Tylenol 325mg Tab) 650 mg PO Q4H PRN PRN Reason: Pain, moderate (4-7) Last Admin: 12/04/16 05:51 Dose: 650 mg Acetaminophen (Tylenol 650 Mg Supp) 650 mg RC Q4H PRN PRN Reason: Fever >100.4 F Alprazolam (Xanax) 0.25 mg PO Q6 PRN; Protocol PRN Reason: Anxiety Stop: 12/21/16 18:01 Atorvastatin Calcium (Lipitor) 20 mg PO DIN [facility] Last Admin: 12/15/16 17:02 Dose: Not Given Benzocaine/Menthol (Cepacol Sore Throat) 1 leo MT Q2H PRN PRN Reason: Sore Throat Last Admin: 12/09/16 20:24 Dose: 1 leo Carvedilol (Coreg) 3.125 mg PO BID [facility] Last Admin: 12/16/16 09:22 Dose: 3.125 mg Ketorolac Tromethamine (Toradol) 30 mg IM Q8H PRN PRN Reason: Pain, moderate (4-7) Ondansetron HCl (Zofran Odt) 4 mg PO Q8H PRN PRN Reason: Nausea/Vomiting Pantoprazole Sodium (Protonix Ec Tab) 40 mg PO ACB [facility] Last Admin: 12/16/16 08:34 Dose: 40 mg Potassium Chloride (K-Dur 20 Meq Er Tab) 20 meq PO BID [facility] Last Admin: 12/16/16 09:22 Dose: 20 meq Tramadol HCl (Ultram) 50 mg PO TID PRN PRN Reason: Pain, severe (8-10) Last Admin: 12/15/16 18:59 Dose: 50 mg Vitamin A (Vitamin A & D Oint Ud Foilpak) 1 ea TOP Q6 [facility] Last Admin: 12/16/16 06:55 Dose: Not Given - Labs Labs: 12/16/16 06:30 12/16/16 06:30 PT 10.6 Seconds (9.9-11.8) 12/11/16 15:20 INR 0.98 (0.93-1.08) 12/11/16 15:20 APTT 23.8 Seconds (23.7-30.8) 12/11/16 15:20 - Additional Findings Additional findings: - Constitutional Appears: Non-toxic, No Acute Distress - Head Exam Head Exam: ATRAUMATIC, NORMOCEPHALIC - Eye Exam Eye Exam: EOMI, PERRL - ENT Exam ENT Exam: Mucous Membranes Moist, Normal Oropharynx - Neck Exam Neck Exam: absent: Normal Inspection (central line in place), Tenderness - Respiratory Exam Respiratory Exam: Clear to Ausculation Bilateral, NORMAL BREATHING PATTERN. absent: Rales, Rhonchi, Wheezes - Cardiovascular Exam Cardiovascular Exam: REGULAR RHYTHM, +S1, +S2, Murmur (+2 systolic). absent: Gallop, Rubs - GI/Abdominal Exam GI & Abdominal Exam: Soft, Tenderness (along suture), Normal Bowel Sounds Additional comments: colostomy bag in place - Extremities Exam Extremities Exam: non-Tender - Back Exam Back Exam: NORMAL INSPECTION. absent: rash noted, tenderness - Neurological Exam Neurological Exam: Alert, Awake, Oriented x3 - Psychiatric Exam Psychiatric exam: Normal Affect, Normal Mood - Skin Skin Exam: Dry, Intact, Normal Color, Warm Assessment and Plan - Assessment and Plan (Free Text) Plan: 71 yo F with PMHx of valvular heart disease, GI bleed, and breast cancer presenting with hematochezia. s/p POD# 9 L hemicolectomy. Plan: 1) GI bleed/hematochezia * GI consult. Dr. Kam. recs appreciated * Surgery following, Dr. Skelton, appreciate recs * s/p L hemicolectomy, End colostomy day 9 * s/p multiple pRBC infusions * Hemoglobin 11.2 today * Remains afebrile w/o leukocytosis * CBC daily, continue to monitor * CT shows diverticulosis, esophagitis, cystic structure 2.2 cm pancreatic neck * Colonoscopy 12/05 showed diverticula throughout colon, small amount of blood in terminal ileum. No active bleeding appreciated (see full report) * Continue Protonix * FS Q6, maintain euglycemia 2)Hx of HTN * Coreg 3)Hx of HLD * continue home statin 4) Hx of valvular heart disease * cardio consult. Dr. Barber. recs appreciated * Monitor I&O 5) Hypokalemia * 4.1 today, resolved PPx protonix SCD EMMA setup in process, anticipated d/c tomorrow to rehab. Assessment and plan discussed with attending physician. <Barbra HOLLIS,Ewa - Last Filed: 12/16/16 16:45> Objective - Vital Signs/Intake and Output Vital Signs (last 24 hours): Temp Pulse Resp BP Pulse Ox 98.4 F 102 H 20 97/61 L 95 12/16/16 12:00 12/16/16 13:00 12/16/16 12:00 12/16/16 12:00 12/16/16 06:00 Intake and Output: 12/16/16 12/16/16 06:59 18:59 Intake Total 360 Output Total 985 Balance -625 - Medications Medications: Current Medications Acetaminophen (Tylenol 325mg Tab) 650 mg PO Q4H PRN PRN Reason: Pain, moderate (4-7) Last Admin: 12/04/16 05:51 Dose: 650 mg Acetaminophen (Tylenol 650 Mg Supp) 650 mg RC Q4H PRN PRN Reason: Fever >100.4 F Alprazolam (Xanax) 0.25 mg PO Q6 PRN; Protocol PRN Reason: Anxiety Stop: 12/21/16 18:01 Atorvastatin Calcium (Lipitor) 20 mg PO DIN [facility] Last Admin: 12/15/16 17:02 Dose: Not Given Benzocaine/Menthol (Cepacol Sore Throat) 1 leo MT Q2H PRN PRN Reason: Sore Throat Last Admin: 12/09/16 20:24 Dose: 1 leo Carvedilol (Coreg) 3.125 mg PO BID [facility] Last Admin: 12/16/16 09:22 Dose: 3.125 mg Ketorolac Tromethamine (Toradol) 30 mg IM Q8H PRN PRN Reason: Pain, moderate (4-7) Ondansetron HCl (Zofran Odt) 4 mg PO Q8H PRN PRN Reason: Nausea/Vomiting Pantoprazole Sodium (Protonix Ec Tab) 40 mg PO ACB [facility] Last Admin: 12/16/16 08:34 Dose: 40 mg Potassium Chloride (K-Dur 20 Meq Er Tab) 20 meq PO BID [facility] Last Admin: 12/16/16 09:22 Dose: 20 meq Tramadol HCl (Ultram) 50 mg PO TID PRN PRN Reason: Pain, severe (8-10) Last Admin: 12/15/16 18:59 Dose: 50 mg Vitamin A (Vitamin A & D Oint Ud Foilpak) 1 ea TOP Q6 [facility] Last Admin: 12/16/16 06:55 Dose: Not Given - Labs Labs: 12/16/16 06:30 12/16/16 06:30 PT 10.6 Seconds (9.9-11.8) 12/11/16 15:20 INR 0.98 (0.93-1.08) 12/11/16 15:20 APTT 23.8 Seconds (23.7-30.8) 12/11/16 15:20 Attending/Attestation - Attestation I have personally seen and examined this patient.: Yes I have fully participated in the care of the patient.: Yes I have reviewed all pertinent clinical information, including history, physical exam and plan: Yes Notes (Text): Patient was seen and examined with medical researcher .Agreed with resident assessment and plan. 71 year old female with past medical history of valvular heart disease, breast cancer, and GIB presented with hematochezia and anemia. She has received multiple blood transfusions since admission. She had a CT abd/pelvis which showed diverticulosis and colonoscopy which showed scattered diverticula without active bleeding. She is s/p hemicolectomy. Her hemoglobin is stable. She is out of bed to chair today and is tolerating diet.She is deconditioned and will be discharged to rehab facility for rehabilitation. Management plan was discussed in detail with patient Education was provided
[2016-12-17 03:45] VITALS: RESP 18
[2016-12-17] MEDS: Pantoprazole 40 mg EC Tab PO SCH (08:01)
--- NOTE | 2016-12-17 08:06 | PN ---
DATE: 12/16/2016 SUBJECTIVE: This patient was seen and evaluated earlier. The patient's family was at bedside, pradeep ating the diet, ambulating. The patient is scheduled to be transferred to rehab place tomorrow. PHYSICAL EXAMINATION: VITAL SIGNS: Temperature is 98, blood pressure 119/93; pulse 83, 86; respirations 20. HEENT: Atraumatic, anicteric. NECK: Supple. HEART: S1, S2 heard. LUNGS: Bilateral air entry present. ABDOMEN: Soft. There is no mass palpable, ____. There is a colostomy functioning well. EXTREMITIES: No cyanosis, no edema. LABORATORY DATA: Hemoglobin 11.2, hematocrit 34.6, WBC is 7.9, platelets 271, albumin 2.7. IMPRESSION: 1. This is a 71-year-old patient with status post left hemicolectomy extended for massive GI bleedin g. ____ patient improving well. Hemoglobin is stable now. 2: History of gastroesophageal reflux disease, on long-term proton pump inhibitor at home. The caitlyn ent can be slowly being weaned off as an outpatient. Presently advised to continue the PPI. 3. The patient may need elective colonoscopic evaluation before the reversal. The patient did have ____ areas of the colon covered with clots. Lavage was done to have a good evaluation. She would b enefit from repeating colonoscopic evaluation to the reversal. This was explained to the patient and also the patient's daughter who are at bedside. Thank you very much for allowing us to participate in the care of the patient. Kain Kam MD cc: [id number] TT: 12/16/2016 18:42:01 Confirmation # [id number] Dictation # [id number] [email or web address]
--- NOTE | 2016-12-17 08:23 | CP.PCM.PN ---
<Casey Marx D - Last Filed: 12/17/16 08:25> Subjective - Date & Time of Evaluation Date of Evaluation: 12/17/16 Time of Evaluation: 08:20 - Subjective Subjective: SURGERY PROGRESS NOTE FOR DR. OSUNA 71F seen and examined at bedside. NAEON, Patient doing well. Patient denies nausea/vomiting. Tolerating diet. Objective - Vital Signs/Intake and Output Vital Signs (last 24 hours): Temp Pulse Resp BP Pulse Ox 97.9 F 79 18 94/64 L 95 12/17/16 06:00 12/17/16 06:00 12/17/16 06:00 12/17/16 06:00 12/16/16 06:00 Intake and Output: 12/17/16 12/17/16 06:59 18:59 Intake Total 0 Output Total 0 Balance 0 - Medications Medications: Current Medications Acetaminophen (Tylenol 325mg Tab) 650 mg PO Q4H PRN PRN Reason: Pain, moderate (4-7) Last Admin: 12/04/16 05:51 Dose: 650 mg Acetaminophen (Tylenol 650 Mg Supp) 650 mg RC Q4H PRN PRN Reason: Fever >100.4 F Alprazolam (Xanax) 0.25 mg PO Q6 PRN; Protocol PRN Reason: Anxiety Stop: 12/21/16 18:01 Last Admin: 12/16/16 21:39 Dose: 0.25 mg Atorvastatin Calcium (Lipitor) 20 mg PO DIN [facility] Last Admin: 12/16/16 17:13 Dose: 20 mg Benzocaine/Menthol (Cepacol Sore Throat) 1 leo MT Q2H PRN PRN Reason: Sore Throat Last Admin: 12/09/16 20:24 Dose: 1 leo Carvedilol (Coreg) 3.125 mg PO BID [facility] Last Admin: 12/16/16 17:13 Dose: 3.125 mg Ketorolac Tromethamine (Toradol) 30 mg IM Q8H PRN PRN Reason: Pain, moderate (4-7) Ondansetron HCl (Zofran Odt) 4 mg PO Q8H PRN PRN Reason: Nausea/Vomiting Pantoprazole Sodium (Protonix Ec Tab) 40 mg PO ACB [facility] Last Admin: 12/17/16 08:01 Dose: 40 mg Potassium Chloride (K-Dur 20 Meq Er Tab) 20 meq PO BID [facility] Last Admin: 12/16/16 17:13 Dose: 20 meq Tramadol HCl (Ultram) 50 mg PO TID PRN PRN Reason: Pain, severe (8-10) Last Admin: 12/15/16 18:59 Dose: 50 mg Vitamin A (Vitamin A & D Oint Ud Foilpak) 1 ea TOP Q6 [facility] Last Admin: 12/16/16 17:14 Dose: 1 ea - Labs Labs: 12/16/16 06:30 12/16/16 06:30 PT 10.6 Seconds (9.9-11.8) 12/11/16 15:20 INR 0.98 (0.93-1.08) 12/11/16 15:20 APTT 23.8 Seconds (23.7-30.8) 12/11/16 15:20 - Constitutional Appears: Non-toxic, No Acute Distress - Head Exam Head Exam: ATRAUMATIC - Respiratory Exam Respiratory Exam: Clear to Ausculation Bilateral, NORMAL BREATHING PATTERN - Cardiovascular Exam Cardiovascular Exam: REGULAR RHYTHM, +S1, +S2 - GI/Abdominal Exam GI & Abdominal Exam: Soft. absent: Distended, Firm, Guarding, Rigid, Tenderness , Rebound Additional comments: nicko in place, stoma pink and patent, ronny drain in place 30cc/12hr serosanguinous, incision clean dry intact - Neurological Exam Neurological Exam: Alert, Awake - Skin Skin Exam: Dry, Intact, Normal Color, Warm Assessment and Plan - Assessment and Plan (Free Text) Assessment: 71F s/p left colectomy and transverse colostomy for GI bleed 2/2 diverticulosis POD#10 Wound care Monitor ostomy output Continue regular diet Clear for discharge - will remove ronny drain before discharge Discussed with Dr. Thao Marx <Cirilo Osuna - Last Filed: 03/19/17 23:39> Objective - Vital Signs/Intake and Output Vital Signs (last 24 hours): Temp Pulse Resp BP Pulse Ox 98 F 78 18 111/67 95 12/17/16 12:00 12/17/16 12:00 12/17/16 12:00 12/17/16 12:00 12/16/16 06:00 - Labs Labs: 12/16/16 06:30 12/16/16 06:30 PT 10.6 Seconds (9.9-11.8) 12/11/16 15:20 INR 0.98 (0.93-1.08) 12/11/16 15:20 APTT 23.8 Seconds (23.7-30.8) 12/11/16 15:20 Assessment and Plan - Assessment and Plan (Free Text) Plan: Patient was seen and examined by me. I agree with assessment and plan as per resident's note.
[2016-12-17] MEDS: Potassium Chloride 20 mEq ER Tab PO SCH (09:05)
[2016-12-17] MEDS ORDERED: Liquid Adhesive TOP ONE (11:11)
[2016-12-17 12:18] VITALS: BP 111/67; PULSE 78; TEMP 98
--- NOTE | 2016-12-17 13:23 | CP.PCM.DIS ---
<Aminta Palm - Last Filed: 12/17/16 13:38> Provider - Provider Date of Admission: 12/04/16 17:00 Attending physician: Dr. Barbra HOLLIS, MD Primary care physician: Jeramie Wilkes MD Consults: GI: Dr. Kam Surgery: Dr. Osuna Time Spent in preparation of Discharge (in minutes): 35 Hospital Course - Lab Results Lab Results: Micro Results 12/09/16 13:34 Blood Blood Culture - Final NO GROWTH AFTER 5 DAYS 12/09/16 13:34 Blood Gram Stain - Final TEST NOT PERFORMED 12/09/16 13:50 Urine,[place] Urine Culture - Final No Growth (<1,000 CFU/ML) Most Recent Lab Values WBC 7.9 10^3/ul (4.5-11.0) 12/16/16 06:30 RBC 3.86 10^6/uL (3.5-6.1) 12/16/16 06:30 Hgb 11.2 gm/dL (12.0-16.0) L 12/16/16 06:30 Hct 34.6 % (36.0-48.0) L 12/16/16 06:30 MCV 89.6 fL (80.0-105.0) 12/16/16 06:30 MCH 29.0 pg (25.0-35.0) 12/16/16 06:30 MCHC 32.4 g/dl (31.0-37.0) 12/16/16 06:30 RDW 15.9 % (11.5-14.5) H 12/16/16 06:30 Plt Count 271 10^3/uL (120.0-450.0) 12/16/16 06:30 MPV 10.4 fl (7.0-11.0) 12/16/16 06:30 Gran % 80.3 % (50.0-68.0) H 12/16/16 06:30 Lymph % (Auto) 10.8 % (22.0-35.0) L 12/16/16 06:30 Evans % (Auto) 6.6 % (1.0-6.0) H 12/16/16 06:30 Eos % (Auto) 2.2 % (1.5-5.0) 12/16/16 06:30 Baso % (Auto) 0.1 % (0.0-3.0) 12/16/16 06:30 Gran # 6.30 (1.4-6.5) 12/16/16 06:30 Lymph # 0.9 (1.2-3.4) L 12/16/16 06:30 Evans # 0.5 (0.1-0.6) 12/16/16 06:30 Eos # 0.2 (0.0-0.7) 12/16/16 06:30 Baso # 0.01 K/mm3 (0.0-2.0) 12/16/16 06:30 PT 10.6 Seconds (9.9-11.8) 12/11/16 15:20 INR 0.98 (0.93-1.08) 12/11/16 15:20 APTT 23.8 Seconds (23.7-30.8) 12/11/16 15:20 D-Dimer, Quantitative 1.27 mg/L FEU (0-0.50) H 12/04/16 08:40 pCO2 34 mm/Hg (35-45) L 12/08/16 04:50 pO2 103.0 mm/Hg (80-100) H 12/08/16 04:50 HCO3 23.1 mmol/L (21-28) 12/08/16 04:50 ABG pH 7.44 (7.35-7.45) 12/08/16 04:50 ABG Total CO2 24.1 mmol.L (22-28) 12/08/16 04:50 ABG O2 Saturation 99.0 % (95-98) H 12/08/16 04:50 ABG O2 Content 12.1 ML/dl (15-23) L 12/08/16 04:50 ABG Base Excess -0.8 mmol/L (-2.0-3.0) 12/08/16 04:50 ABG Hemoglobin 8.8 g/dL (11.7-17.4) L 12/08/16 04:50 ABG Carboxyhemoglobin 1.4 % (0.5-1.5) 12/08/16 04:50 POC ABG HHb (Measured) 1.0 % (0-5) 12/08/16 04:50 ABG Methemoglobin 1.0 % (0.0-3.0) 12/08/16 04:50 ABG O2 Capacity 12.2 mL/dl (16-24) L 12/08/16 04:50 VBG pH 7.39 (7.32-7.43) 12/07/16 15:10 VBG pCO2 42.0 (40-60) 12/07/16 15:10 VBG HCO3 25.4 mmol/l (21-28) 12/07/16 15:10 VBG Total CO2 24.5 mmol.L (22-28) 12/05/16 08:23 VBG O2 Sat (Calc) 67.4 % (40-65) H 12/07/16 15:10 VBG Base Excess 0.3 mmol/L (0.0-2.0) 12/07/16 15:10 VBG Potassium 4.0 mmol/L (3.6-5.2) 12/05/16 08:23 Hgb O2 Saturation 96.5 % (95.0-98.0) 12/08/16 04:50 Sodium 141.0 mmol/L (132-148) 12/05/16 08:23 Chloride 115.0 mmol/L (98-107) H 12/05/16 08:23 Glucose 99 mg/dl (65-105) 12/05/16 08:23 Lactate 1.2 mmol/L (0.7-2.1) 12/05/16 08:23 FiO2 50.0 % 12/08/16 04:50 Sodium 139 mmol/L (132-148) 12/16/16 06:30 Potassium 4.1 mmol/L (3.6-5.0) 12/16/16 06:30 Chloride 101 mmol/L (98-107) 12/16/16 06:30 Carbon Dioxide 32 mmol/L (21-33) 12/16/16 06:30 Anion Gap 10 (10-20) 12/16/16 06:30 BUN 6 mg/dL (7-21) L 12/16/16 06:30 Creatinine 0.6 mg/dL (0.5-1.4) 12/16/16 06:30 Est GFR ( Amer) > 60 12/16/16 06:30 Est GFR (Non-Af Amer) > 60 12/16/16 06:30 POC Glucose (mg/dL) 117 mg/dL (65-110) H 12/17/16 11:47 Random Glucose 108 mg/dL (70-110) 12/16/16 06:30 Lactic Acid 0.9 mmol/L (0.7-2.1) 12/06/16 20:00 Calcium 8.4 mg/dL (8.4-10.5) 12/16/16 06:30 Phosphorus 2.4 mg/dL (2.5-4.5) L 12/09/16 18:10 Magnesium 2.2 mg/dL (1.7-2.2) 12/16/16 06:30 Iron 19 ug/dL (45-180) L 12/13/16 09:20 TIBC 195 ug/dL (265-497) L 12/13/16 09:20 % Saturation 10 % (20-55) L 12/13/16 09:20 Ferritin 69.4 ng/mL 12/13/16 06:00 Total Bilirubin 0.5 mg/dL (0.2-1.3) 12/16/16 06:30 Direct Bilirubin 0.4 mg/dL (0.0-0.4) 12/05/16 07:50 AST 24 U/L (15-39) 12/16/16 06:30 ALT 30 U/L (7-56) 12/16/16 06:30 Alkaline Phosphatase 52 U/L (38-133) 12/16/16 06:30 Lactate Dehydrogenase 424 U/L (333-699) 12/09/16 00:15 Total Creatine Kinase 125 U/L (35-230) 12/09/16 00:15 Troponin I 0.08 ng/mL 12/09/16 00:15 Total Protein 6.4 g/dL (5.8-8.3) 12/16/16 06:30 Albumin 2.7 g/dL (3.0-4.8) L 12/16/16 06:30 Globulin 3.6 gm/dL 12/16/16 06:30 Albumin/Globulin Ratio 0.8 (1.1-1.8) L 12/16/16 06:30 Vitamin B12 967 pg/mL (239-931) H 12/13/16 06:00 Folate 11.7 ng/mL 12/13/16 06:00 Procalcitonin 0.12 NG/ML (0.19-0.49) L 12/11/16 05:30 Venous Blood Potassium 4.0 mmol/L (3.6-5.2) 12/05/16 08:23 Urine Color Yellow (YELLOW) 12/09/16 13:50 Urine Appearance Clear (CLEAR) 12/09/16 13:50 Urine pH 5.5 (4.7-8.0) 12/09/16 13:50 Ur Specific Mccarley 1.025 (1.005-1.035) 12/09/16 13:50 Urine Protein Negative mg/dL (<30 mg/dL) 12/09/16 13:50 Urine Glucose (UA) Negative mg/dL (NEGATIVE) 12/09/16 13:50 Urine Ketones >=80 mg/dL (NEGATIVE) 12/09/16 13:50 Urine Blood Negative (NEGATIVE) 12/09/16 13:50 Urine Nitrate Negative (NEGATIVE) 12/09/16 13:50 Urine Bilirubin Negative (NEGATIVE) 12/09/16 13:50 Urine Urobilinogen 0.2 E.U./dL (<1 E.U./dL) 12/09/16 13:50 Ur Leukocyte Esterase Negative Dara/uL (NEGATIVE) 12/09/16 13:50 Blood Type A POSITIVE 12/13/16 15:45 Blood Type Confirm A POSITIVE 12/04/16 02:00 Antibody Screen Negative 12/13/16 15:45 Crossmatch See Detail 12/13/16 15:45 BBK History Checked Patient has bt 12/13/16 15:45 - Hospital Course Hospital Course: 71 yo F w/ PMHx of GI bleed, valvular hx disease, and breast cancer presented with hematochezia x 1 day. Admitted for GI bleed. Pt had BRPPR on the floors, Bleeding scan was performed showing brisk bleed in the Sigmoid colon. Pt received multiple blood transfusions for GI and low hemoglobin, accepted under ICU care and was intubated, eventually on 12/07/2016 overnight at 3AM for emergent surgery by Dr. Skelton. Left hemicolectomy with end colostomy. Extubated the day after surgery. As pt h/h stabilized, diet advanced, which was tolerated. Pt currently in good condition and discharged to subacute rehab. Discharge Exam - Head Exam Head Exam: ATRAUMATIC - Eye Exam Eye Exam: EOMI, Normal appearance Pupil Exam: NORMAL ACCOMODATION, PERRL - ENT Exam ENT Exam: Mucous Membranes Moist, Normal Exam - Respiratory Exam Respiratory Exam: Clear to PA & Lateral, UNREMARKABLE - Cardiovascular Exam Cardiovascular Exam: +S1, +S2. absent: Bradycardia - GI/Abdominal Exam GI & Abdominal Exam: Soft. absent: Firm Additional comments: surgical scar midline. c/d/i, no erythema nor d/c - Exam External exam: absent: Ecchymosis, Erythema - Neurological Exam Neurological exam: Alert, Oriented x3 - Psychiatric Exam Psychiatric exam: Normal Affect, Normal Mood - Skin Skin Exam: Dry, Intact Discharge Plan - Discharge Medications Prescriptions: Carvedilol [Coreg] 3.125 mg PO BID #28 tab Atorvastatin [Lipitor] 20 mg PO DIN #14 tab Pantoprazole [Protonix EC Tab] 40 mg PO ACB #14 ect - Follow Up Plan Condition: GOOD Disposition: TRANSF TO SNF Instructions: Gastrointestinal Bleeding (DC) Additional Instructions: You are discharged. Please follow-up w/Dr. Osuna 10 days after discharge. Please Follow-up with Dr. Kam for evaluation for colonoscopy for reversal procedure. Please follow up with Dr. Wilkes within the week. Please do not take aspirin or any NSAIDS until your doctor clears you for taking it. Referrals: Cirilo Osuna MD [Staff Provider] - Jeramie Wilkes MD [Primary Care Provider] - <Barbra HOLLIS,[facility] - Last Filed: 12/17/16 15:28> Provider - Provider Date of Admission: 12/04/16 17:00 Attending physician: Gaurang Ascencio MD Primary care physician: Jeramie Wilkes MD Hospital Course - Lab Results Lab Results: Micro Results 12/09/16 13:34 Blood Blood Culture - Final NO GROWTH AFTER 5 DAYS 12/09/16 13:34 Blood Gram Stain - Final TEST NOT PERFORMED 12/09/16 13:50 Urine,[place] Urine Culture - Final No Growth (<1,000 CFU/ML) Most Recent Lab Values WBC 7.9 10^3/ul (4.5-11.0) 12/16/16 06:30 RBC 3.86 10^6/uL (3.5-6.1) 12/16/16 06:30 Hgb 11.2 gm/dL (12.0-16.0) L 12/16/16 06:30 Hct 34.6 % (36.0-48.0) L 12/16/16 06:30 MCV 89.6 fL (80.0-105.0) 12/16/16 06:30 MCH 29.0 pg (25.0-35.0) 12/16/16 06:30 MCHC 32.4 g/dl (31.0-37.0) 12/16/16 06:30 RDW 15.9 % (11.5-14.5) H 12/16/16 06:30 Plt Count 271 10^3/uL (120.0-450.0) 12/16/16 06:30 MPV 10.4 fl (7.0-11.0) 12/16/16 06:30 Gran % 80.3 % (50.0-68.0) H 12/16/16 06:30 Lymph % (Auto) 10.8 % (22.0-35.0) L 12/16/16 06:30 Evans % (Auto) 6.6 % (1.0-6.0) H 12/16/16 06:30 Eos % (Auto) 2.2 % (1.5-5.0) 12/16/16 06:30 Baso % (Auto) 0.1 % (0.0-3.0) 12/16/16 06:30 Gran # 6.30 (1.4-6.5) 12/16/16 06:30 Lymph # 0.9 (1.2-3.4) L 12/16/16 06:30 Evans # 0.5 (0.1-0.6) 12/16/16 06:30 Eos # 0.2 (0.0-0.7) 12/16/16 06:30 Baso # 0.01 K/mm3 (0.0-2.0) 12/16/16 06:30 PT 10.6 Seconds (9.9-11.8) 12/11/16 15:20 INR 0.98 (0.93-1.08) 12/11/16 15:20 APTT 23.8 Seconds (23.7-30.8) 12/11/16 15:20 D-Dimer, Quantitative 1.27 mg/L FEU (0-0.50) H 12/04/16 08:40 pCO2 34 mm/Hg (35-45) L 12/08/16 04:50 pO2 103.0 mm/Hg (80-100) H 12/08/16 04:50 HCO3 23.1 mmol/L (21-28) 12/08/16 04:50 ABG pH 7.44 (7.35-7.45) 12/08/16 04:50 ABG Total CO2 24.1 mmol.L (22-28) 12/08/16 04:50 ABG O2 Saturation 99.0 % (95-98) H 12/08/16 04:50 ABG O2 Content 12.1 ML/dl (15-23) L 12/08/16 04:50 ABG Base Excess -0.8 mmol/L (-2.0-3.0) 12/08/16 04:50 ABG Hemoglobin 8.8 g/dL (11.7-17.4) L 12/08/16 04:50 ABG Carboxyhemoglobin 1.4 % (0.5-1.5) 12/08/16 04:50 POC ABG HHb (Measured) 1.0 % (0-5) 12/08/16 04:50 ABG Methemoglobin 1.0 % (0.0-3.0) 12/08/16 04:50 ABG O2 Capacity 12.2 mL/dl (16-24) L 12/08/16 04:50 VBG pH 7.39 (7.32-7.43) 12/07/16 15:10 VBG pCO2 42.0 (40-60) 12/07/16 15:10 VBG HCO3 25.4 mmol/l (21-28) 12/07/16 15:10 VBG Total CO2 24.5 mmol.L (22-28) 12/05/16 08:23 VBG O2 Sat (Calc) 67.4 % (40-65) H 12/07/16 15:10 VBG Base Excess 0.3 mmol/L (0.0-2.0) 12/07/16 15:10 VBG Potassium 4.0 mmol/L (3.6-5.2) 12/05/16 08:23 Hgb O2 Saturation 96.5 % (95.0-98.0) 12/08/16 04:50 Sodium 141.0 mmol/L (132-148) 12/05/16 08:23 Chloride 115.0 mmol/L (98-107) H 12/05/16 08:23 Glucose 99 mg/dl (65-105) 12/05/16 08:23 Lactate 1.2 mmol/L (0.7-2.1) 12/05/16 08:23 FiO2 50.0 % 12/08/16 04:50 Sodium 139 mmol/L (132-148) 12/16/16 06:30 Potassium 4.1 mmol/L (3.6-5.0) 12/16/16 06:30 Chloride 101 mmol/L (98-107) 12/16/16 06:30 Carbon Dioxide 32 mmol/L (21-33) 12/16/16 06:30 Anion Gap 10 (10-20) 12/16/16 06:30 BUN 6 mg/dL (7-21) L 12/16/16 06:30 Creatinine 0.6 mg/dL (0.5-1.4) 12/16/16 06:30 Est GFR ( Amer) > 60 12/16/16 06:30 Est GFR (Non-Af Amer) > 60 12/16/16 06:30 POC Glucose (mg/dL) 117 mg/dL (65-110) H 12/17/16 11:47 Random Glucose 108 mg/dL (70-110) 12/16/16 06:30 Lactic Acid 0.9 mmol/L (0.7-2.1) 12/06/16 20:00 Calcium 8.4 mg/dL (8.4-10.5) 12/16/16 06:30 Phosphorus 2.4 mg/dL (2.5-4.5) L 12/09/16 18:10 Magnesium 2.2 mg/dL (1.7-2.2) 12/16/16 06:30 Iron 19 ug/dL (45-180) L 12/13/16 09:20 TIBC 195 ug/dL (265-497) L 12/13/16 09:20 % Saturation 10 % (20-55) L 12/13/16 09:20 Ferritin 69.4 ng/mL 12/13/16 06:00 Total Bilirubin 0.5 mg/dL (0.2-1.3) 12/16/16 06:30 Direct Bilirubin 0.4 mg/dL (0.0-0.4) 12/05/16 07:50 AST 24 U/L (15-39) 12/16/16 06:30 ALT 30 U/L (7-56) 12/16/16 06:30 Alkaline Phosphatase 52 U/L (38-133) 12/16/16 06:30 Lactate Dehydrogenase 424 U/L (333-699) 12/09/16 00:15 Total Creatine Kinase 125 U/L (35-230) 12/09/16 00:15 Troponin I 0.08 ng/mL 12/09/16 00:15 Total Protein 6.4 g/dL (5.8-8.3) 12/16/16 06:30 Albumin 2.7 g/dL (3.0-4.8) L 12/16/16 06:30 Globulin 3.6 gm/dL 12/16/16 06:30 Albumin/Globulin Ratio 0.8 (1.1-1.8) L 12/16/16 06:30 Vitamin B12 967 pg/mL (239-931) H 12/13/16 06:00 Folate 11.7 ng/mL 12/13/16 06:00 Procalcitonin 0.12 NG/ML (0.19-0.49) L 12/11/16 05:30 Venous Blood Potassium 4.0 mmol/L (3.6-5.2) 12/05/16 08:23 Urine Color Yellow (YELLOW) 12/09/16 13:50 Urine Appearance Clear (CLEAR) 12/09/16 13:50 Urine pH 5.5 (4.7-8.0) 12/09/16 13:50 Ur Specific Mccarley 1.025 (1.005-1.035) 12/09/16 13:50 Urine Protein Negative mg/dL (<30 mg/dL) 12/09/16 13:50 Urine Glucose (UA) Negative mg/dL (NEGATIVE) 12/09/16 13:50 Urine Ketones >=80 mg/dL (NEGATIVE) 12/09/16 13:50 Urine Blood Negative (NEGATIVE) 12/09/16 13:50 Urine Nitrate Negative (NEGATIVE) 12/09/16 13:50 Urine Bilirubin Negative (NEGATIVE) 12/09/16 13:50 Urine Urobilinogen 0.2 E.U./dL (<1 E.U./dL) 12/09/16 13:50 Ur Leukocyte Esterase Negative Dara/uL (NEGATIVE) 12/09/16 13:50 Blood Type A POSITIVE 12/13/16 15:45 Blood Type Confirm A POSITIVE 12/04/16 02:00 Antibody Screen Negative 12/13/16 15:45 Crossmatch See Detail 12/13/16 15:45 BBK History Checked Patient has bt 12/13/16 15:45 Attending/Attestation - Attestation I have personally seen and examined this patient.: Yes I have fully participated in the care of the patient.: Yes I have reviewed all pertinent clinical information, including history, physical exam and plan: Yes Notes (Text): Patient was seen and examined with medical office technician .Agreed with resident assessment and plan. 71 year old female with past medical history of valvular heart disease, breast cancer, and recurrent lower GI bleeding due to diverticulosis was admitted with hematochezia and anemia. She has received multiple blood transfusions since admission. She had a CT abd/pelvis which showed diverticulosis and colonoscopy which showed scattered diverticula without active bleeding. She was evaluated by surgery and underwent left hemicolectomy.She was on mechanical ventilation after surgery for some time.She was extubated and then was transferred to medical floor Her hemoglobin remain stable. She is out of bed to chair today and is tolerating diet.She is deconditioned and will be discharged to rehab facility for rehabilitation.Her blood pressure is running between 95-110 systolic.She is asymptomatic.She is on low dose of coreg and is tolerating it well.She will be discharged to rehab .Patient condition was discussed in detail with patient PCP over the phone. Management plan was discussed in detail with patient Education was provided.
== END 2016-12-17 13:40 | DRG 330 ==
LOC: ED 21:07 → ERH 12-04 01:58 → 3RNO 12-04 03:27 → CCU 12-04 07:21 → OBSVTOIN 12-04 17:00 → 2RSO 12-11 16:07
PROVIDERS: ADMIT Internal Medicine; ATTEND Internal Medicine
PROC: 30233N1 Transfusion of Nonautologous Red Blood Cells into Peripheral Vein, Percutaneous Approach (ICD-10-PCS; 2016-12-04)
PROC: 0DJD8ZZ Inspection of Lower Intestinal Tract, Via Natural or Artificial Opening Endoscopic (ICD-10-PCS; 2016-12-05)
PROC: 30233K1 Transfusion of Nonautologous Frozen Plasma into Peripheral Vein, Percutaneous Approach (ICD-10-PCS; 2016-12-06)
PROC: 30233R1 Transfusion of Nonautologous Platelets into Peripheral Vein, Percutaneous Approach (ICD-10-PCS; 2016-12-06)
PROC: 0D1L0Z4 Bypass Transverse Colon to Cutaneous, Open Approach (ICD-10-PCS; 2016-12-07)
PROC: 0DBS0ZZ (ICD-10-PCS; 2016-12-07)
PROC: 0DJD8ZZ Inspection of Lower Intestinal Tract, Via Natural or Artificial Opening Endoscopic (ICD-10-PCS; 2016-12-07)
PROC: 5A1945Z Respiratory Ventilation, 24-96 Consecutive Hours (ICD-10-PCS; 2016-12-07)
PROC: 0DTG0ZZ Resection of Left Large Intestine, Open Approach (ICD-10-PCS; principal; 2016-12-07 02:00)
DX: K57.33 Diverticulitis of large intestine without perforation or abscess with bleeding (principal); D62 Acute posthemorrhagic anemia; K56.7 Ileus, unspecified; I34.0 Nonrheumatic mitral (valve) insufficiency; I47.1 Supraventricular tachycardia; K91.89 Other postprocedural complications and disorders of digestive system; I10 Essential (primary) hypertension; E78.5 Hyperlipidemia, unspecified; K64.8 Other hemorrhoids; K21.0 Gastro-esophageal reflux disease with esophagitis; E87.6 Hypokalemia; R50.82 Postprocedural fever; K44.9 Diaphragmatic hernia without obstruction or gangrene; Z92.21 Personal history of antineoplastic chemotherapy; Z85.3 Personal history of malignant neoplasm of breast; Z90.10 Acquired absence of unspecified breast and nipple; Z87.11 Personal history of peptic ulcer disease; Z87.891 Personal history of nicotine dependence

== ENCOUNTER 2017-04-15 08:31 | Day surgery (SDC) | payer MEDICARE ==
[2017-04-07 12:11] VITALS: BMI 28.9
[2017-04-15] MEDS ORDERED: Propofol 10 mg/ml Inj (20 ML) ONE (11:25)
[2017-04-15] MEDS ORDERED: Midazolam 2 MG/2 ML VIAL ONE (11:25)
[2017-04-15] MEDS ORDERED: Lidocaine 2% Inj (20ml) ONE (11:41)
[2017-04-15] MEDS ORDERED: Sodium Chloride 0.9% 1,000 ML IV SCH (12:30)
[2017-04-15 14:18] VITALS: BP 112/62; PULSE 75; RESP 21; TEMP 97.8; O2SAT 96
== END 2017-04-15 13:32 | disposition home or self-care (01) ==
LOC: ENDO 08:31
PROVIDERS: ATTEND Internal Medicine Gastroenterology
DX: Z01.818 Encounter for other preprocedural examination (principal); K57.30 Diverticulosis of large intestine without perforation or abscess without bleeding; K64.8 Other hemorrhoids; K44.9 Diaphragmatic hernia without obstruction or gangrene; K55.20 Angiodysplasia of colon without hemorrhage; K29.50 Unspecified chronic gastritis without bleeding; D64.9 Anemia, unspecified; K21.9 Gastro-esophageal reflux disease without esophagitis; I10 Essential (primary) hypertension
CPT/HCPCS: 43239; 45378; 88305; 88342; J2250; J2704; J3010; J7040

== ENCOUNTER 2017-07-21 06:12 | Emergency (ER) | payer MEDICARE ==
[2017-07-21 06:12] VITALS: BMI 29.4
[2017-07-21 06:31] VITALS: TEMP 98.1
--- NOTE | 2017-07-21 06:44 | ED PDOC ---
Arrival/HPI - General Chief Complaint: Medical Clearance Time Seen by Provider: 07/21/17 06:30 Historian: Patient - History of Present Illness Narrative History of Present Illness (Text): 07/21/17 06:30 Pt. presents to the ED PMHX Diverticulosis, GI bleed,Colostomy with recent reversal of colostomy last week now with hx. of couple of episodes vomiting bile liquid since last PM.Pt, states she last ate yesterday evening ,a potato.Some mild abdominal discomfort.No fever or chills. No diarrhea.No chest pain or sob. Past Medical History - Provider Review Nursing Documentation Reviewed: Yes - Travel History Have you recently traveled outside [place] w/in the past 3 mons?: No - Infectious Disease Hx of Infectious Diseases: None - Tetanus Immunization Tetanus Immunization: Unknown - Reproductive Menopause: Yes - Cardiac Hx Pacemaker: No Other/Comment: valvular heart disease, leaking heart valves - Pulmonary Hx Respiratory Disorders: No Hx Bronchitis: Yes - Neurological Hx Neurological Disorder: No - HEENT Hx HEENT Disorder: Yes (eyeglasses for reading) - Renal Hx Renal Disorder: No - Endocrine/Metabolic Hx Endocrine Disorders: No - Hematological/Oncological Hx Blood Disorders: Yes (blood transfusions) Hx Anemia: Yes Hx Cancer: Yes (BREAST) Hx Chemotherapy: Yes - Integumentary Hx Dermatological Disorder: Yes Other/Comment: abd post op dressings and stew dry and intact - Musculoskeletal/Rheumatological Hx Musculoskeletal Disorders: No Hx Falls: No - Gastrointestinal Hx Gastrointestinal Disorders: Yes (hiatal hernia) Hx Colostomy: Yes Hx Diverticulitis: Yes (2011) Hx Gastroesophageal Reflux: Yes Other/Comment: gi bleed , pancreatic cyst - Genitourinary/Gynecological Hx Genitourinary Disorders: Yes - Psychiatric Hx Anxiety: Yes Hx Emotional Abuse: No Hx Physical Abuse: No Hx Substance Use: No - Surgical History [facility] Hx Mastectomy: Yes (cirilo 2004) Other/Comment: 11/2016 exp lap with colectomy/colostomy, 07/07/17 exp lap colostomy closure and lower anter bowel resection - Anesthesia Hx Anesthesia Reactions: No Hx Malignant Hyperthermia: No - Suicidal Assessment Feels Threatened In Home Enviroment: No Family/Social History - Physician Review Nursing Documentation Reviewed: Yes Family/Social History: Hypertension Smoking Status: Former Smoker Hx Alcohol Use: No Hx Substance Use: No Hx Substance Use Treatment: No Allergies/Home Meds Allergies/Adverse Reactions: Allergies No Known Allergies Allergy (Verified 07/21/17 06:23) Home Medications: Home Meds Medication Instructions Recorded Confirmed Rosuvastatin Calcium [Crestor] 5 mg PO QPM 04/07/17 07/21/17 Review of Systems - Review of Systems Constitutional: Normal Eyes: Normal ENT: Normal Respiratory: Normal Cardiovascular: Normal Gastrointestinal: Abdominal Pain, Vomiting Genitourinary Female: Normal Musculoskeletal: Normal Skin: Normal Neurological: Normal Endocrine: Normal Hemo/Lymphatic: Normal Psychiatric: Normal Physical Exam Vital Signs Temp Pulse Resp BP Pulse Ox 07/21/17 06:30 98.1 F 102 H 20 111/61 96 Temperature: Afebrile Blood Pressure: Normal Pulse: Regular Respiratory Rate: Normal Appearance: Positive for: Well-Appearing, Non-Toxic, Comfortable Pain Distress: None Mental Status: Positive for: Alert and Oriented X 3 - Systems Exam Head: Present: Atraumatic, Normocephalic Pupils: Present: PERRL Extroacular Muscles: Present: EOMI Conjunctiva: Present: Normal Mouth: Present: Moist Mucous Membranes Neck: Present: Normal Range of Motion Respiratory/Chest: Present: Clear to Auscultation, Good Air Exchange. No: Respiratory Distress, Accessory Muscle Use Cardiovascular: Present: Regular Rate and Rhythm, Normal S1, S2. No: Murmurs Abdomen: Present: Tenderness (mild mid- upper), Normal Bowel Sounds, Other ( surgical nicko in place/no surrounding erythema or discharge). No: Distention , Peritoneal Signs, Rebound, Guarding Back: Present: Normal Inspection Upper Extremity: Present: Normal Inspection. No: Cyanosis, Edema Lower Extremity: Present: Normal Inspection. No: Edema Neurological: Present: GCS=15, CN II-XII Intact, Speech Normal, Motor Func Grossly Intact, Normal Sensory Function Skin: Present: Warm, Dry, Normal Color. No: Rashes Psychiatric: Present: Alert, Oriented x 3, Normal Insight, Normal Concentration Medical Decision Making - Transfer of Care Patient signed out to Dr:: Pierce Pending Labs:: Labs/CT abd/pel/reassess/final disposition Disposition/Present on Arrival - Present on Arrival Any Indicators Present on Arrival: No History of DVT/PE: No History of Uncontrolled Diabetes: No Urinary Catheter: Yes (inserted in or) History of Decub. Ulcer: No History Surgical Site Infection Following: None - Disposition Have Diagnosis and Disposition been Completed?: No Diagnosis: Vomiting (bilious) following gastrointestinal surgery Disposition Time: 07:00 Condition: STABLE
[2017-07-21] MEDS ORDERED: Sodium Chloride 0.9% 1,000 ML IV SCH (07:00)
[2017-07-21 08:09] LABS: MEAN CELL VOLUME 85.1 fl (80.0-105.0); MEAN CORPUSCULAR HEMOGLOBIN 26.7 pg (25.0-35.0); MEAN CORPUSCULAR HGB CONC 31.4 g/dl (31.0-37.0); MEAN PLATELET VOLUME 11.2 fl (7.0-11.0); RED CELL DISTRIBUTION WIDTH 15.4 % (11.5-14.5); WHITE BLOOD COUNT 9.7 10^3/ul (4.5-11.0)
[2017-07-21 08:15] LABS: INR 1.18 (0.93-1.08); PARTIAL THROMBOPLASTIN TIME 27.5 Seconds (25.1-36.5)
[2017-07-21 08:16] LABS: ALB/GLOB RATIO 0.9 (1.1-1.8); ALKALINE PHOSPHATASE 121 U/L (38-126); ALT/SGPT 28 U/L (7-56); AST/SGOT 24 U/L (14-36); BILIRUBIN,TOTAL 0.7 mg/dL (0.2-1.3); BLOOD UREA NITROGEN 13 mg/dL (7-21); CARBON DIOXIDE 30 mmol/L (21-33); CHLORIDE 104 mmol/L (98-107); GFR AFRICAN-AMERICAN > 60; GLUCOSE,RANDOM 128 mg/dL (70-110); LIPASE 48 U/L (23-300); POTASSIUM 3.6 mmol/L (3.6-5.0); SODIUM 146 mmol/L (132-148); TOTAL PROTEIN 8.2 g/dL (5.8-8.3)
[2017-07-21] MEDS ORDERED: Iohexol 350 MG/100 ML VIAL ONE (08:23)
[2017-07-21 08:44] VITALS: RESP 16
--- NOTE | 2017-07-21 08:49 | RAD ---
HISTORY: abdom.pain/vomiting COMPARISON: Portable chest 12/11/2016. FINDINGS: LUNGS: Rare diaphragm appears elevated in the interval, etiology indeterminate. No right-sided infiltrate. Borderline patchy infiltrate left base versus fibrosis. PLEURA: No significant pleural effusion identified, no pneumothorax apparent. CARDIOVASCULAR: Stable cardiomegaly. No pulmonary vascular derangement identified. OSSEOUS STRUCTURES: No significant abnormalities. VISUALIZED UPPER ABDOMEN: Normal. OTHER FINDINGS: None. IMPRESSION: Stable cardiomegaly. No pulmonary vascular derangement. Borderline left basilar infiltrate or fibrosis. No right-sided infiltrate.
--- NOTE | 2017-07-21 09:03 | ED PDOC ---
Physical Exam Vital Signs Temp Pulse Resp BP Pulse Ox 07/21/17 08:43 84 16 115/73 95 07/21/17 06:30 98.1 F 102 H 20 111/61 96 Medical Decision Making ED Course and Treatment: 07/21/17 07:00 Case signed out to me by Dr. Lynch. 72 year old female patient presented to emergency department complaining of several episodes of bilious vomiting since last night. Currently pending Chest X-ray and CT abdomen and pelvis and all labs. 07/21/17 09:00 Chest X-ray: Creator : Joe Wilson MD COMPARISON: Portable chest 12/11/2016. FINDINGS: LUNGS: Rare diaphragm appears elevated in the interval, etiology indeterminate. No right-sided infiltrate. Borderline patchy infiltrate left base versus fibrosis. PLEURA: No significant pleural effusion identified, no pneumothorax apparent. CARDIOVASCULAR: Stable cardiomegaly. No pulmonary vascular derangement identified. OSSEOUS STRUCTURES: No significant abnormalities. VISUALIZED UPPER ABDOMEN: Normal. OTHER FINDINGS: None. IMPRESSION: Stable cardiomegaly. No pulmonary vascular derangement. Borderline left basilar infiltrate or fibrosis. No right-sided infiltrate. 07/21/17 09:10 CT abdomen and pelvis: Creator : Joe Wilson MD COMPARISON: Abdomen pelvis CT with contrast 12/13/2016. FINDINGS: LOWER THORAX: For a minimal fibrotic changes in the bilateral lung bases with likely limited bronchiectasis at the medial right lower lobe base. Cardiomegaly and a small hiatal hernia are again identified. Bilateral breast implants are noted incidentally. LIVER: Unremarkable. No gross lesion or ductal dilatation. GALLBLADDER AND BILE DUCTS: Unremarkable. PANCREAS: 1.9 x 1.3 cm cysts is again seen at the proximal body of the pancreas not significantly changed in size in the interval compared to 1.8 x 1.5 cm previously. No nodularity or septation is seen associated. SPLEEN: Unremarkable. ADRENALS: Unremarkable. No mass. KIDNEYS AND URETERS:There is a stable cyst at the upper pole right kidney, partially exophytic within interval intrarenal cyst at the lower pole measuring 13 Hounsfield units, measuring 1 cm greatest dimension. No obstructive uropathy bilaterally. Left kidney remains unremarkable throughout. VASCULATURE: Unremarkable. No aortic aneurysm. BOWEL: The stomach is partially collapsed with limited distention from fluid and air. Proximal small bowel in the left upper quadrant dilated with remaining small bowel loops appearing essentially collapsed. The prior left lower quadrant colostomy appears to have been reversed with skin nicko again seen vertically along the midline of the anterior abdominal wall as well as horizontally across the left lower quadrant abdomen ostomy site. Partial left hemicolectomy is again identified with interval anastomotic site grossly nonfocal. Limited retained fecal material obscures distal sigmoid/ upper rectum immediately distal to the anastomotic suture line with the wall is difficult to evaluate here. Lack of oral contrast limits the evaluation clearly. Limited mesenteric postoperative changes are seen at the midline central abdomen extending to left lower quadrant. Moderate retained fecal material seen at the right hemicolon with extensive nonacute colonic diverticulosis seen essentially throughout the residual right hemicolon and transverse colon segments. APPENDIX: The appendix not clearly identified. No definite CT pattern appendicitis at this time. PERITONEUM: Unremarkable. No free fluid. No free air. LYMPH NODES: Unremarkable. No enlarged lymph nodes. BLADDER: Urinary bladder is mildly distended but thin walled with umbilical amount of nondependent gas seen in the lumen. Clinically correlate for potential recent instrumentation. Cystitis and other etiologies are not completely excluded. No Luevano catheter identified. REPRODUCTIVE: Unremarkable. BONES: No acute fracture. OTHER FINDINGS: A 4.5 x 1.5 cm fluid collection is seen in the deep subcutaneous fat the pelvis inferiorly probably reflecting a small seroma or chronic hematoma as this is in the plane of the prior lengthy midline incision. No pattern suspicious for abscess at this time. None. IMPRESSION: 1. Reversal of prior left lower quadrant colostomy with unremarkable appearing distal large bowel anastomosis status post left hemicolectomy. Proximal small bowel loops appear dilated at the left upper quadrant abdomen the stomach partially collapsed however. Remaining bowel appears essentially collapsed. Borderline pattern of potential developing ileus or mid to distal small bowel obstruction. Clinical correlation and radiographic follow-up are advised. 2. Postop for mesenteric changes as well as a 4.5 cm intradural wall fluid collection probably reflecting small seroma or chronic hematoma rather than abscess. 3. Gas is seen in the nondependent urinary bladder once again, without Luevano catheterization apparent. Consider recent instrumentation. Cystitis not completely excluded though this is not favored. 4. Other lesser findings as discussed above. 07/21/17 09:56 Dr. Irby called, came to evaluate patient at bedside, recommends hydration in ED and discharge, no new discharge medications, states patient will follow up with him in his office. Patient instructed to return to ED for worsening pain , vomiting, fever, or any other problem. - Lab Interpretations Lab Results: 07/21/17 06:50 07/21/17 06:50 Lab Results 07/21/17 06:50: WBC 9.7 D, RBC 4.35, Hgb 11.6 L, Hct 37.0, MCV 85.1, MCH 26.7, MCHC 31.4, RDW 15.4 H, Plt Count 331, MPV 11.2 H 07/21/17 06:50: Sodium 146, Potassium 3.6, Chloride 104, Carbon Dioxide 30, Anion Gap 16, BUN 13, Creatinine 0.8, Est GFR ( Amer) > 60, Est GFR (Non- Af Amer) > 60, Random Glucose 128 H, Calcium 10.0, Total Bilirubin 0.7, AST 24, ALT 28, Alkaline Phosphatase 121, Total Protein 8.2, Albumin 3.9, Globulin 4.3, Albumin/Globulin Ratio 0.9 L, Lipase 48 07/21/17 06:50: PT 13.0 H, INR 1.18 H, APTT 27.5 I have reviewed the lab results: Yes - RAD Interpretation Radiology Orders: 07/21/17 06:47 CHEST PORTABLE [RAD] Stat 07/21/17 06:49 ABD & PELVIS IV CONTRAST ONLY [CT] 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 - EKG Interpretation Interpreted by ED Physician: Yes Type: 12 lead EKG - Medication Orders Current Medication Orders: Sodium Chloride (Sodium Chloride 0.9%) 1,000 mls @ 100 mls/hr IV .Q10H [facility] Last Admin: 07/21/17 07:01 Dose: 100 mls/hr eMAR Start Stop Document 07/21/17 07:01 CNR (Rec: 07/21/17 07:01 CNR [id number]) Intravenous Solution Start Date 07/21/17 Start Time 07:01 Discontinued Medications Famotidine (Pepcid) 20 mg IVP STAT STA Stop: 07/21/17 06:49 Last Admin: 07/21/17 07:01 Dose: 20 mg IVP Administration Document 07/21/17 07:01 CNR (Rec: 07/21/17 07:01 CNR [id number]) Charges for Administration # of IVP Administrations 1 Ondansetron HCl (Zofran Inj) 4 mg IVP ONCE ONE Stop: 07/21/17 06:49 Last Admin: 07/21/17 07:01 Dose: 4 mg IVP Administration Document 07/21/17 07:01 CNR (Rec: 07/21/17 07:02 CNR [id number]) Charges for Administration # of IVP Administrations 1 - Scribe Statement The provider has reviewed the documentation as recorded by the Topheribe Birgit Estrada Provider Scribe Attestation: All medical record entries made by the Scribe were at my direction and personally dictated by me. I have reviewed the chart and agree that the record accurately reflects my personal performance of the history, physical exam, medical decision making, and the department course for this patient. I have also personally directed, reviewed, and agree with the discharge instructions and disposition. Disposition/Present on Arrival - Present on Arrival Any Indicators Present on Arrival: Yes History of DVT/PE: No History of Uncontrolled Diabetes: No Urinary Catheter: Yes (inserted in or) History of Decub. Ulcer: No History Surgical Site Infection Following: None - Disposition Have Diagnosis and Disposition been Completed?: Yes Diagnosis: Vomiting (bilious) following gastrointestinal surgery Disposition: HOME/ ROUTINE Disposition Time: 09:59 Patient Plan: Discharge Patient Problems: Current Active Problems Problem Status Onset Vomiting (bilious) following gastrointestinal surgery Acute Condition: STABLE Discharge Instructions (ExitCare): Acute Nausea and Vomiting (ED) Referrals: Jeramie Wilkes MD [Primary Care Provider] - Follow up with primary Cirilo Osuna MD [Staff Provider] - Follow up with primary Forms: [employer] (Turkish)
--- NOTE | 2017-07-21 09:09 | CT ---
PROCEDURE: CT Abdomen and Pelvis with contrast HISTORY: abdominal pain/vomiting/s/p reversal of colostomy COMPARISON: Abdomen pelvis CT with contrast 12/13/2016. TECHNIQUE: Following the intravenous administration of iodinated contrast material, a CT examination of the abdomen and pelvis performed from the domes of the diaphragms to the symphysis pubis with reformatted datasets provided not only axial but also sagittal and coronal planes. Oral contrast was not administered as per referring physician request. Contrast dose: Omnipaque 350, 100 cc. Radiation dose: Total exam DLP = 540.22 mGy-cm. This CT exam was performed using one or more of the following dose reduction techniques: Automated exposure control, adjustment of the mA and/or kV according to patient size, and/or use of iterative reconstruction technique. FINDINGS: LOWER THORAX: For a minimal fibrotic changes in the bilateral lung bases with likely limited bronchiectasis at the medial right lower lobe base. Cardiomegaly and a small hiatal hernia are again identified. Bilateral breast implants are noted incidentally. LIVER: Unremarkable. No gross lesion or ductal dilatation. GALLBLADDER AND BILE DUCTS: Unremarkable. PANCREAS: 1.9 x 1.3 cm cysts is again seen at the proximal body of the pancreas not significantly changed in size in the interval compared to 1.8 x 1.5 cm previously. No nodularity or septation is seen associated. SPLEEN: Unremarkable. ADRENALS: Unremarkable. No mass. KIDNEYS AND URETERS: There is a stable cyst at the upper pole right kidney, partially exophytic within interval intrarenal cyst at the lower pole measuring 13 Hounsfield units, measuring 1 cm greatest dimension. No obstructive uropathy bilaterally. Left kidney remains unremarkable throughout. VASCULATURE: Unremarkable. No aortic aneurysm. BOWEL: The stomach is partially collapsed with limited distention from fluid and air. Proximal small bowel in the left upper quadrant dilated with remaining small bowel loops appearing essentially collapsed. The prior left lower quadrant colostomy appears to have been reversed with skin nicko again seen vertically along the midline of the anterior abdominal wall as well as horizontally across the left lower quadrant abdomen ostomy site. Partial left hemicolectomy is again identified with interval anastomotic site grossly nonfocal. Limited retained fecal material obscures distal sigmoid/ upper rectum immediately distal to the anastomotic suture line with the wall is difficult to evaluate here. Lack of oral contrast limits the evaluation clearly. Limited mesenteric postoperative changes are seen at the midline central abdomen extending to left lower quadrant. Moderate retained fecal material seen at the right hemicolon with extensive nonacute colonic diverticulosis seen essentially throughout the residual right hemicolon and transverse colon segments. APPENDIX: The appendix not clearly identified. No definite CT pattern appendicitis at this time. PERITONEUM: Unremarkable. No free fluid. No free air. LYMPH NODES: Unremarkable. No enlarged lymph nodes. BLADDER: Urinary bladder is mildly distended but thin walled with umbilical amount of nondependent gas seen in the lumen. Clinically correlate for potential recent instrumentation. Cystitis and other etiologies are not completely excluded. No Luevano catheter identified. REPRODUCTIVE: Unremarkable. BONES: No acute fracture. OTHER FINDINGS: A 4.5 x 1.5 cm fluid collection is seen in the deep subcutaneous fat the pelvis inferiorly probably reflecting a small seroma or chronic hematoma as this is in the plane of the prior lengthy midline incision. No pattern suspicious for abscess at this time. None. IMPRESSION: 1. Reversal of prior left lower quadrant colostomy with unremarkable appearing distal large bowel anastomosis status post left hemicolectomy. Proximal small bowel loops appear dilated at the left upper quadrant abdomen the stomach partially collapsed however. Remaining bowel appears essentially collapsed. Borderline pattern of potential developing ileus or mid to distal small bowel obstruction. Clinical correlation and radiographic follow-up are advised. 2. Postop for mesenteric changes as well as a 4.5 cm intradural wall fluid collection probably reflecting small seroma or chronic hematoma rather than abscess. 3. Gas is seen in the nondependent urinary bladder once again, without Luevano catheterization apparent. Consider recent instrumentation. Cystitis not completely excluded though this is not favored. 4. Other lesser findings as discussed above.
--- NOTE | 2017-07-21 10:36 | CP.PCM.CON ---
History of Present Illness - History of Present Illness History of Present Illness: General Surgery Consult Note for Dr. Osuna CC: Nausea/Vomiting HPI: Patient is a 72F who is s/p colostomy reversal two weeks ago. In November she had a colon resection for perforated diverticulitis. Her post op course was uncomplicated. She has been having regular BM daily soon after the colosotomy reversal with no N/V or belly pain. This morning she had one episode of nonbloody emesis she describes as bilious. Her last BM was two days ago that she describes as copious. She is passing gas/ She no longer feels nauseas. She blames this episode of nausea on the pain medication. She was feeling much better when I saw her in the ED and denies any belly pain currently. She is getting IVF and IV antibiotics. Her CT scan did show a developing ileus and a small seroma. Her nicko were due to be removed today so we did so in the ED. 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 PMH: GI bleed, valvular heart dx, breast cancer in remission, diverticulitis PSH: Mastectomy, colon resection w/ colostomy, colostomy reversal FH: Non contributory SH: Former smoker. Quit over 50 yrs ago. Smoked for just a couple of years. Denies drinking, drug us. Lives with son in [place]. Meds: See mar All: NKA Review of Systems - Review of Systems Review of Systems: per hpi Past Patient History - Infectious Disease Hx of Infectious Diseases: None - Tetanus Immunizations Tetanus Immunization: Unknown - Past Medical History & Family History Past Medical History?: Yes - Past Social History Smoking Status: Former Smoker - CARDIAC Hx Pacemaker: No Other/Comment: valvular heart disease, leaking heart valves - PULMONARY Hx Respiratory Disorders: No Hx Bronchitis: Yes - NEUROLOGICAL Hx Neurological Disorder: No - HEENT Hx HEENT Problems: Yes (eyeglasses for reading) - RENAL Hx Chronic Kidney Disease: No - ENDOCRINE/METABOLIC Hx Endocrine Disorders: No - HEMATOLOGICAL/ONCOLOGICAL Hx Blood Disorders: Yes (blood transfusions) Hx Anemia: Yes Hx Cancer: Yes (BREAST) Hx Chemotherapy: Yes - INTEGUMENTARY Hx Dermatological Problems: Yes Other/Comment: abd post op dressings and stew dry and intact - MUSCULOSKELETAL/RHEUMATOLOGICAL Hx Musculoskeletal Disorders: No Hx Falls: No - GASTROINTESTINAL Hx Gastrointestinal Disorders: Yes (hiatal hernia) Hx Colostomy: Yes Hx Diverticulitis: Yes (2011) Hx Gastroesophageal Reflux: Yes Other/Comment: gi bleed , pancreatic cyst - GENITOURINARY/GYNECOLOGICAL Hx Genitourinary Disorders: Yes - PSYCHIATRIC Hx Anxiety: Yes Hx Emotional Abuse: No Hx Physical Abuse: No Hx Substance Use: No - SURGICAL HISTORY Hx [facility]iac C[facility]ization: Yes ([facility] 2015) Hx Mastectomy: Yes ([facility] 2004) Other/Comment: 11/2016 exp lap with colectomy/colostomy, 07/07/17 exp lap colostomy closure and lower anter bowel resection - ANESTHESIA Hx Anesthesia Reactions: No Hx Malignant Hyperthermia: No Meds Allergies/Adverse Reactions: Allergies Allergy/AdvReac Type Severity Reaction Status Date / Time No Known Allergies Allergy Verified 07/21/17 06:23 - Medications Medications: Current Medications Sodium Chloride (Sodium Chloride 0.9%) 1,000 mls @ 100 mls/hr IV .Q10H [facility] Last Admin: 07/21/17 07:01 Dose: 100 mls/hr Physical Exam - Constitutional Appears: Well, Non-toxic, No Acute Distress - Head Exam Head Exam: ATRAUMATIC, NORMAL INSPECTION, NORMOCEPHALIC - Eye Exam Eye Exam: EOMI - ENT Exam ENT Exam: Mucous Membranes Moist - Respiratory Exam Respiratory Exam: Clear to Auscultation Bilateral, NORMAL BREATHING PATTERN - Cardiovascular Exam Cardiovascular Exam: REGULAR RHYTHM - GI/Abdominal Exam GI & Abdominal Exam: Normal Bowel Sounds, Soft. absent: Distended, Tenderness Additional comments: nicko from midline incision and colostomy site. removed. Incision looks clean dry and intact w/o evidence of infection - Extremities Exam Extremities exam: Negative for: joint swelling, tenderness - Neurological Exam Neurological exam: Alert, Oriented x3 - Psychiatric Exam Psychiatric exam: Normal Affect, Normal Mood - Skin Skin Exam: Dry, Intact, Normal Color, Warm Results - Vital Signs Recent Vital Signs: Last Vital Signs Temp 98.1 F 07/21/17 06:30 Pulse 84 07/21/17 08:43 Resp 16 07/21/17 08:43 BP 115/73 07/21/17 08:43 Pulse Ox 95 07/21/17 08:43 - Labs Result Diagrams: 07/21/17 06:50 07/21/17 06:50 Labs: Laboratory Results - last 24 hr 07/21/17 07/21/17 07/21/17 06:50 06:50 06:50 WBC 9.7 D RBC 4.35 Hgb 11.6 L Hct 37.0 MCV 85.1 MCH 26.7 MCHC 31.4 RDW 15.4 H Plt Count 331 MPV 11.2 H PT 13.0 H INR 1.18 H APTT 27.5 Sodium 146 Potassium 3.6 Chloride 104 Carbon Dioxide 30 Anion Gap 16 BUN 13 Creatinine 0.8 Est GFR ( Amer) > 60 Est GFR (Non-Af Amer) > 60 Random Glucose 128 H Calcium 10.0 Total Bilirubin 0.7 AST 24 ALT 28 Alkaline Phosphatase 121 Total Protein 8.2 Albumin 3.9 Globulin 4.3 Albumin/Globulin Ratio 0.9 L Lipase 48 Assessment & Plan - Assessment and Plan (Free Text) Assessment: 72F s/p colostomy reversal with N/V Plan: * IVF * Ancef 2g IV * Removed nicko * No surgical intervention needed at this time, please follow up with Dr. Osuna in his office
[2017-07-21] MEDS ORDERED: ceFAZolin 1 gm in NS 1 GM/100 ML BAG IVPB STA (10:45)
[2017-07-21 13:11] VITALS: BP 103/62; PULSE 76; O2SAT 100
--- NOTE | 2017-07-22 11:40 | CARD ---
APPROVED REPORT EKG Measurement Heart [id number] <Conclusion> Sinus rhythm with premature supraventricular complexes Left anterior fascicular block PRWP V 1 - 6. Could be lead placement No change
== END 2017-07-21 12:45 | disposition home or self-care (01) ==
LOC: ED 06:12
DX: K91.0 Vomiting following gastrointestinal surgery (principal); Y83.8 Other surgical procedures as the cause of abnormal reaction of the patient, or of later complication, without mention of misadventure at the time of the procedure
CPT/HCPCS: 71010; 74177; 80053; 83690; 85027; 85610; 85730; 93005; 96374; 96375; 99284; J0690; J2405; J7040; Q9967

== ENCOUNTER 2017-10-19 23:00 | Observation (INO) | payer MEDICARE ==
--- NOTE | 2017-10-19 23:44 | ED PDOC ---
Arrival/HPI - General Time Seen by Provider: 10/19/17 23:39 Historian: Patient - History of Present Illness Narrative History of Present Illness (Text): 10/19/17 23:43 Paola Morgan is a 72 year old female, whose past medical history includes diverticulitis, GI bleed, colostomy with reversal, valvular heart disease, and breast cancer, who presents to the Emergency department complaining of abdominal pain. Patient states she recently underwent an ERCP for evaluation of a pancreatic cyst last week at [facility] and has been experiencing upper abdominal pain radiating to her back since then. Patient states symptoms worsened tonight. Patient denies any fever, chills, chest pain, shortness of breath, nausea, vomiting, diarrhea, urinary symptoms, neck pain, headache, dizziness, or any other complaints. Symptom Onset: Gradual Symptom Course: Unchanged Activities at Onset: Light Context: Home Past Medical History - Provider Review Nursing Documentation Reviewed: Yes - Infectious Disease Hx of Infectious Diseases: None - Tetanus Immunization Tetanus Immunization: Unknown - Cardiac Hx Pacemaker: No Other/Comment: valvular heart disease, leaking heart valves - Pulmonary Hx Respiratory Disorders: No Hx Bronchitis: Yes - Neurological Hx Neurological Disorder: No - HEENT Hx HEENT Disorder: Yes (eyeglasses for reading) - Renal Hx Renal Disorder: No - Endocrine/Metabolic Hx Endocrine Disorders: No - Hematological/Oncological Hx Blood Disorders: Yes (blood transfusions) Hx Anemia: Yes Hx Cancer: Yes (BREAST) Hx Chemotherapy: Yes - Integumentary Hx Dermatological Disorder: Yes Other/Comment: abd post op dressings and stew dry and intact - Musculoskeletal/Rheumatological Hx Musculoskeletal Disorders: No Hx Falls: No - Gastrointestinal Hx Gastrointestinal Disorders: Yes (hiatal hernia) Hx Colostomy: Yes Hx Diverticulitis: Yes (2011) Hx Gastroesophageal Reflux: Yes Other/Comment: gi bleed , pancreatic cyst - Genitourinary/Gynecological Hx Genitourinary Disorders: Yes - Psychiatric Hx Anxiety: Yes Hx Emotional Abuse: No Hx Physical Abuse: No Hx Substance Use: No - Surgical History Hx [email or web address] Hx Mastectomy: Yes ([facility] 2004) Other/Comment: 11/2016 exp lap with colectomy/colostomy, 07/07/17 exp lap colostomy closure and lower anter bowel resection - Anesthesia Hx Anesthesia Reactions: No Hx Malignant Hyperthermia: No - Suicidal Assessment Feels Threatened In Home Enviroment: No Family/Social History - Physician Review Nursing Documentation Reviewed: Yes Family/Social History: Unknown Family HX Smoking Status: Former Smoker Hx Alcohol Use: No Hx Substance Use: No Hx Substance Use Treatment: No Allergies/Home Meds Allergies/Adverse Reactions: Allergies No Known Allergies Allergy (Verified 10/19/17 23:48) Home Medications: Home Meds Medication Instructions Recorded Confirmed Rosuvastatin Calcium [Crestor] 5 mg PO QPM 04/07/17 10/19/17 Fluticasone/Vilanterol [Breo 1 inhaler INH DAILY 10/19/17 10/19/17 Ellipta 100-25 Mcg INH] Review of Systems - Physician Review All systems were reviewed & negative as marked: Yes - Review of Systems Constitutional: Normal. absent: Fevers Eyes: Normal ENT: Normal Respiratory: Normal. absent: SOB, Cough Cardiovascular: Normal. absent: Chest Pain Gastrointestinal: Abdominal Pain. absent: Diarrhea, Vomiting Genitourinary Female: Normal. absent: Dysuria, Frequency, Hematuria, Urine Output Changes Musculoskeletal: Back Pain. absent: Neck Pain Skin: Normal. absent: Rash Neurological: Normal. absent: Headache, Dizziness Endocrine: Normal Hemo/Lymphatic: Normal Psychiatric: Normal Physical Exam Vital Signs Reviewed: Yes Vital Signs Temp Pulse Resp BP Pulse Ox 10/20/17 02:37 93 H 18 116/69 93 L 10/19/17 23:45 98.7 F 85 18 137/98 H 97 Temperature: Afebrile Blood Pressure: Normal Pulse: Regular Respiratory Rate: Normal Appearance: Positive for: Well-Appearing, Non-Toxic, Comfortable Pain Distress: None Mental Status: Positive for: Alert and Oriented X 3 - Systems Exam Head: Present: Atraumatic, Normocephalic Pupils: Present: PERRL Extroacular Muscles: Present: EOMI Conjunctiva: Present: Normal Mouth: Present: Moist Mucous Membranes Neck: Present: Normal Range of Motion Respiratory/Chest: Present: Clear to Auscultation, Good Air Exchange. No: Respiratory Distress, Accessory Muscle Use Cardiovascular: Present: Regular Rate and Rhythm, Normal S1, S2. No: Murmurs Abdomen: Present: Tenderness (Epigastric/LUQ tenderness), Normal Bowel Sounds. No: Distention, Peritoneal Signs Back: Present: Normal Inspection Upper Extremity: Present: Normal Inspection. No: Cyanosis, Edema Lower Extremity: Present: Normal Inspection. No: Edema Neurological: Present: GCS=15, CN II-XII Intact, Speech Normal Skin: Present: Warm, Dry, Normal Color. No: Rashes Psychiatric: Present: Alert, Oriented x 3, Normal Insight, Normal Concentration Medical Decision Making ED Course and Treatment: 10/19/17 23:44 Impression: 72 year old female complaining of epigastric pain radiating to her back for 1 week, worse today. Plan: -- CT Abdomen and Pelvis with IV contrast -- EKG -- Labs, lipase -- Urinalysis -- IV fluids -- Zofran -- Morphine -- Reassess and disposition Prior Visits: Notes and results from previous visits were reviewed. Progress Notes: Reviewed EKG, NSR at 98 bpm. Sinus arrhythmia. LAHB. Possible anterolateral infarct, age undetermined. Unchanged from previous EKG on 09/02/2017. 10/20/17 02:27 CT Abdomen and Pelvis shows: Lower thorax: Mild infolding of right breast implant, stable. Cyir-ym-ibtcrhzu cardiomegaly. Mild atelectasis/scarring/minimal bronchiectasis. Small hiatal hernia. ABDOMEN: Liver: Unremarkable. No mass. Gallbladder and bile ducts: No calcified stones. No ductal dilation. Pancreas: 2.2 x 1.5 x 1.8 cm hypodense lesion within pancreas, grossly stable. No ductal dilation. Spleen: No splenomegaly. Adrenals: No mass. Kidneys and ureters: Few probable RIGHT renal cysts. Too small to characterize lesion within LEFT kidney. No hydronephrosis. Stomach and bowel: Partial colonic resection. Multiple scattered diverticula within colon. No associated inflammatory stranding. No definite mural thickening. No obstruction. Appendix: Appendectomy. PELVIS: Bladder: Unremarkable. Reproductive: Unremarkable as visualized. ABDOMEN and PELVIS: Intraperitoneal space: No significant fluid collection. No free air. Bones/joints: Mild degenerative changes of spine. No acute fracture. Soft tissues: Breast implants. Laparotomy scar. Vasculature: Ogth-vl-obmvhwop atherosclerotic disease. No aneurysm. Lymph nodes: No pathologically enlarged lymph nodes. IMPRESSION: 1. Diverticulosis without definite CT evidence of diverticulitis. 2. Incidental/non-acute findings are described above. 10/20/17 03:56 Reviewed sono, US Gallbladder and Pancreas shows: Liver: Normal echogenicity. No mass. No intrahepatic bile duct dilatation. Gallbladder: No gallstones. No wall thickening. No pericholecystic fluid. No sonographic Alcantara's sign. Common bile duct: No dilatation. No stones. Pancreas: Obscured by overlying bowel gas. Right kidney: Normal echogenicity. 2.2 cm cyst. No hydronephrosis. IMPRESSION: 1. No acute findings. 2. Non-acute findings are described above. 10/20/17 04:[address] Amador, who is aware and agrees with plan. Accepts pt in to hospitalist service. Pt will go to [facility] observation for intractable abdominal/back pain. Case discussed with certified medical technician assistant contract preparer, who is aware and agrees with plan. - Lab Interpretations Lab Results: 10/20/17 00:20 10/20/17 00:20 Lab Results 10/20/17 01:10: Urine Color Straw, Urine Appearance Clear, Urine pH 6.5, Ur Specific Encinal 1.010, Urine Protein Negative, Urine Glucose (UA) Negative, Urine Ketones Negative, Urine Blood Negative, Urine Nitrate Negative, Urine Bilirubin Negative, Urine Urobilinogen 0.2, Ur Leukocyte Esterase Small H, Urine RBC 0 - 2, Urine WBC 1 - 3, Ur Epithelial Cells 1 - 3 10/20/17 00:20: WBC 9.9 D, RBC 4.39, Hgb 11.4 L, Hct 36.3, MCV 82.7, MCH 26.0, MCHC 31.4, RDW 17.6 H, Plt Count 188, MPV 11.6 H 10/20/17 00:20: Sodium 144, Potassium 4.3, Chloride 104, Carbon Dioxide 27, Anion Gap 18, BUN 19, Creatinine 0.7, Est GFR ( Amer) > 60, Est GFR (Non- Af Amer) > 60, Random Glucose 107, Calcium 10.3, Total Bilirubin 0.6, AST 24, ALT 27, Alkaline Phosphatase 67, Total Protein 7.8, Albumin 4.2, Globulin 3.6, Albumin/Globulin Ratio 1.1, Lipase 54 I have reviewed the lab results: Yes - RAD Interpretation Radiology Orders: 10/19/17 23:50 ABD & PELVIS IV CONTRAST ONLY [CT] Stat 10/20/17 02:21 GALLBLADDER & PANCREAS [US] Stat Preschool Disability Teacher: Radiologist - EKG Interpretation Interpreted by ED Physician: Yes Type: 12 lead EKG - Medication Orders Current Medication Orders: Discontinued Medications Hydromorphone HCl (Dilaudid) 1 mg IVP STAT STA Stop: 10/20/17 02:20 Last Admin: 10/20/17 02:36 Dose: 1 mg MAR Pain Assessment Document 10/20/17 02:36 KARY (Rec: 10/20/17 02:36 KARY [id number]) Pain Reassessment Is this a pain reassessment? Yes Sleep Is patient sleeping during reassessment? No Presence of Pain Presence of Pain No Location Upper or Lower Upper Pain Location Body Site Back IVP Administration Document 10/20/17 02:36 KARY (Rec: 10/20/17 02:36 KARY [id number]) Charges for Administration # of IVP Administrations 1 Sodium Chloride (Sodium Chloride 0.9%) 1,000 mls @ 999 mls/hr IV .Q1H1M STA Stop: 10/20/17 00:49 Last Admin: 10/20/17 02:35 Dose: 999 mls/hr eMAR Start Stop Document 10/20/17 02:35 KARY (Rec: 10/20/17 02:35 KARY [id number]) Intravenous Solution Start Date 10/20/17 Start Time 00:20 End Date 10/20/17 End time 01:30 Total Infusion Time 70 Morphine Sulfate (Morphine) 4 mg IVP STAT STA Stop: 10/19/17 23:50 Last Admin: 10/20/17 00:27 Dose: 4 mg MAR Pain Assessment Document 10/20/17 00:27 KARY (Rec: 10/20/17 00:28 KARY [id number]) Pain Reassessment Is this a pain reassessment? Yes Sleep Is patient sleeping during reassessment? No Presence of Pain Presence of Pain Yes Location Upper or Lower Upper Pain Location Body Site Back IVP Administration Document 10/20/17 00:27 KARY (Rec: 10/20/17 00:28 KARY [id number]) Charges for Administration # of IVP Administrations 1 Ondansetron HCl (Zofran Inj) 4 mg IVP ONCE ONE Stop: 10/19/17 23:50 Last Admin: 10/20/17 00:27 Dose: 4 mg IVP Administration Document 10/20/17 00:27 KARY (Rec: 10/20/17 00:27 KARY [id number]) Charges for Administration # of IVP Administrations 1 Ondansetron HCl (Zofran Inj) 4 mg IVP ONCE ONE Stop: 10/20/17 02:20 Last Admin: 10/20/17 02:36 Dose: 4 mg IVP Administration Document 10/20/17 02:36 KARY (Rec: 10/20/17 02:36 KARY [id number]) Charges for Administration # of IVP Administrations 1 - Scribe Statement The provider has reviewed the documentation as recorded by the Scribvikram Pickett All medical record entries made by the Scribe were at my direction and personally dictated by me. I have reviewed the chart and agree that the record accurately reflects my personal performance of the history, physical exam, medical decision making, and the department course for this patient. I have also personally directed, reviewed, and agree with the discharge instructions and disposition. Disposition/Present on Arrival - Present on Arrival Any Indicators Present on Arrival: No History of DVT/PE: No History of Uncontrolled Diabetes: No Urinary Catheter: Yes (inserted in or) History of Decub. Ulcer: No History Surgical Site Infection Following: None - Disposition Have Diagnosis and Disposition been Completed?: Yes Diagnosis: Intractable abdominal pain, Intractable back pain Disposition: HOSPITALIZED Disposition Time: 04:22 Patient Plan: Observation Condition: STABLE
[2017-10-19 23:47] VITALS: BMI 29.0
[2017-10-19] MEDS ORDERED: Morphine 4 mg/ml ISec IVP STA (23:49)
[2017-10-20] MEDS: Sodium Chloride 0.9% 1,000 ML IV STA ×2 (00:22→02:35)
[2017-10-20 00:37] LABS: HEMOGLOBIN 11.4 g/dL (12.0-16.0); MEAN CELL VOLUME 82.7 fl (80.0-105.0); MEAN CORPUSCULAR HGB CONC 31.4 g/dl (31.0-37.0); MEAN PLATELET VOLUME 11.6 fl (7.0-11.0); RBC 4.39 10^6/uL (3.5-6.1); RED CELL DISTRIBUTION WIDTH 17.6 % (11.5-14.5); WHITE BLOOD COUNT 9.9 10^3/ul (4.5-11.0)
[2017-10-20 00:38] LABS: ALB/GLOB RATIO 1.1 (1.1-1.8); ALBUMIN 4.2 g/dL (3.0-4.8); ALT/SGPT 27 U/L (7-56); AST/SGOT 24 U/L (14-36); BLOOD UREA NITROGEN 19 mg/dL (7-21); CALCIUM 10.3 mg/dL (8.4-10.5); GFR AFRICAN-AMERICAN > 60; GFR NON-AFRICAN AMERICAN > 60; LIPASE 54 U/L (23-300)
[2017-10-20 01:23] LABS: PH,URINE 6.5 (4.7-8.0); URINE BILIRUBIN NEGATIVE (NEGATIVE); URINE BLOOD NEGATIVE (NEGATIVE); URINE GLUCOSE (UA) NEGATIVE (NEGATIVE); URINE LEUKOCYTE ESTERASE SMALL Leu/uL (NEGATIVE); URINE NITRATE NEGATIVE (NEGATIVE); URINE PROTEIN NEGATIVE mg/dL (<30 mg/dL); URINE UROBILINOGEN 0.2 E.U./dL (<1 E.U./dL)
[2017-10-20 01:34] LABS: URINE APPEARANCE CLEAR (CLEAR); URINE COLOR STRAW (YELLOW)
[2017-10-20] MEDS ORDERED: Iohexol 350 MG/100 ML VIAL ONE (01:36)
[2017-10-20 01:39] LABS: URINE RBC 0 - 2 /hpf (0-2)
[2017-10-20] MEDS ORDERED: HYDROmorphone 1 mg/ml ISec IVP STA (02:18)
[2017-10-20] MEDS ORDERED: HYDROmorphone 0.5 mg/0.5 ml ISec IVP STA (02:19)
--- NOTE | 2017-10-20 02:22 | CT ---
EXAM: CT Abdomen and Pelvis With Intravenous Contrast CLINICAL HISTORY: 72 years old, female; Pain; Abdominal pain; Generalized; Additional info: Abdominal pain/back pain TECHNIQUE: Axial computed tomography images of the abdomen and pelvis with intravenous contrast. All CT scans at this facility use one or more dose reduction techniques, viz.: automated exposure control; ma/kV adjustment per patient size (including targeted exams where dose is matched to indication; i.e. head); or iterative reconstruction technique. Coronal and sagittal reformatted images were created and reviewed. CONTRAST: 96 mL of omni 350 administered intravenously. COMPARISON: CT - ABD PELVIS IV CONTRAST ONLY 2017-07-21 08:31 FINDINGS: Lower thorax: Mild infolding of right breast implant, stable. Jfvo-fm-fztslmgz cardiomegaly. Mild atelectasis/scarring/minimal bronchiectasis. Small hiatal hernia. ABDOMEN: Liver: Unremarkable. No mass. Gallbladder and bile ducts: No calcified stones. No ductal dilation. Pancreas: 2.2 x 1.5 x 1.8 cm hypodense lesion within pancreas, grossly stable. No ductal dilation. Spleen: No splenomegaly. Adrenals: No mass. Kidneys and ureters: Few probable RIGHT renal cysts. Too small to characterize lesion within LEFT kidney. No hydronephrosis. Stomach and bowel: Partial colonic resection. Multiple scattered diverticula within colon. No associated inflammatory stranding. No definite mural thickening. No obstruction. Appendix: Appendectomy. PELVIS: Bladder: Unremarkable. Reproductive: Unremarkable as visualized. ABDOMEN and PELVIS: Intraperitoneal space: No significant fluid collection. No free air. Bones/joints: Mild degenerative changes of spine. No acute fracture. Soft tissues: Breast implants. Laparotomy scar. Vasculature: Dijx-yy-ffemqwrg atherosclerotic disease. No aneurysm. Lymph nodes: No pathologically enlarged lymph nodes. IMPRESSION: 1. Diverticulosis without definite CT evidence of diverticulitis. 2. Incidental/non-acute findings are described above.
--- NOTE | 2017-10-20 03:54 | US ---
EXAM: US Abdomen Limited, Right Upper Quadrant CLINICAL HISTORY: 72 years old, female; Pain; Other: Backpain TECHNIQUE: Real-time ultrasound of the right upper quadrant with image documentation. COMPARISON: CT - ABD PELVIS IV CONTRAST ONLY 2017-10-20 01:42 FINDINGS: Liver: Normal echogenicity. No mass. No intrahepatic bile duct dilatation. Gallbladder: No gallstones. No wall thickening. No pericholecystic fluid. No sonographic Alcantara's sign. Common bile duct: No dilatation. No stones. Pancreas: Obscured by overlying bowel gas. Right kidney: Normal echogenicity. 2.2 cm cyst. No hydronephrosis. IMPRESSION: 1.No acute findings. 2.Non-acute findings are described above.
--- NOTE | 2017-10-20 06:11 | CP.PCM.HP ---
"<AmadorCatherine - Last Filed: 10/20/17 06:56> Meds Allergies/Adverse Reactions: Allergies Allergy/AdvReac Type Severity Reaction Status Date / Time No Known Allergies Allergy Verified 10/19/17 23:48 Results - Vital Signs Recent Vital Signs: Last Vital Signs Temp 98.4 F 10/20/17 05:24 Pulse 96 H 10/20/17 05:24 Resp 18 10/20/17 05:24 BP 134/80 10/20/17 05:24 Pulse Ox 93 L 10/20/17 05:24 - Labs Result Diagrams: 10/20/17 00:20 10/20/17 00:20 Attending/Attestation - Attestation I have personally seen and examined this patient.: Yes I have fully participated in the care of the patient.: Yes I have reviewed all pertinent clinical information: Yes Notes (Text): 10/20/17 06:56 My impressions are as follows: Patient was seen when she was in bed # 3 in the ER. Chest pain. Intractable abdominal pain. Intractable back pain. S/P ERCP on Oct 07 in [facility]. Diverticulosis. History of pancreatic cyst. HIstory of breast cancer. History of bilateral mastectomy. History of tonsillectomy. History of left hemicolectomy. History of colostomy, colostomy reversal. Former smoker. History of valvular heart disease-Mitral Regurgitation. History of GI bleeding. History of anemia. History of hypercholesterolemia. History of GERD. History of peptic ulcer disease. History of diverticulitis. History of arthritis. History of chronic bronchitis. History of hiatus hernia. <Robbin Connelly - Last Filed: 10/20/17 09:32> History of Present Illness - History of Present Illness History of Present Illness: This patient patient is a 72 year old female with a PMHx of HLD, GI bleed, Breast CA (Remission), Valvular Heart Disease, Diverticulosis, Diverticulitis, Pancreatic Cyst who presents complaining of achy back pain that radiates to the chest. Pain started around 3pm this morning when she bent down to get clothes from the dryer. She rates the pain an 8/10. She tried a lidoderm patch and tylenol to relieve her symptoms without any success. Patient denies any fevers , chills, headache, SOB, palpitations, nausea, vomiting, changes in bowel habits , or urinary symptoms. Patient stated she had EUS done at [facility] by Dr. Lance Hernandez for evaluation of pancreatic cyst on 2017. Path results for negative for malignancy. ROS: As stated Above PMHx: HLD, GI bleed, Breast CA (Remission), Valvular Heart Disease, Diverticulosis, Diverticulitis, Pancreatic Cyst PSHx: Hemicolectomy w/ colostomy and reversal, B/L mastectomy, Allergies: NKDA SocialHx: Former Smoker for a couple years, Quit 50 years ago. Denies Alcohol or illicit drug use Hos: 2016 for colostomy reversal FamHx: Angina (Mother) Meds: Crestor 5 HS PMD: Dr. Wilkes Cardio: Dr. Barber GI: Dr. Kam Gen Surg: Dr. Osuna Present on Admission - Present on Admission Any Indicators Present on Admission: No Review of Systems - Review of Systems Review of Systems: As per HPI Past Patient History - Infectious Disease Hx of Infectious Diseases: None - Tetanus Immunizations Tetanus Immunization: Unknown - Past Medical History & Family History Past Medical History?: Yes - Past Social History Smoking Status: Former Smoker - CARDIAC Hx Pacemaker: No Other/Comment: valvular heart disease, leaking heart valves - PULMONARY Hx Respiratory Disorders: No Hx Bronchitis: Yes - NEUROLOGICAL Hx Neurological Disorder: No - HEENT Hx HEENT Problems: Yes (eyeglasses for reading) - RENAL Hx Chronic Kidney Disease: No - ENDOCRINE/METABOLIC Hx Endocrine Disorders: No - HEMATOLOGICAL/ONCOLOGICAL Hx Blood Disorders: Yes (blood transfusions) Hx Anemia: Yes Hx Cancer: Yes (BREAST) Hx Chemotherapy: Yes - INTEGUMENTARY Hx Dermatological Problems: Yes Other/Comment: abd post op dressings and stew dry and intact - MUSCULOSKELETAL/RHEUMATOLOGICAL Hx Musculoskeletal Disorders: No Hx Falls: No - GASTROINTESTINAL Hx Gastrointestinal Disorders: Yes (hiatal hernia) Hx Colostomy: Yes Hx Diverticulitis: Yes (2011) Hx Gastroesophageal Reflux: Yes Other/Comment: gi bleed , pancreatic cyst - GENITOURINARY/GYNECOLOGICAL Hx Genitourinary Disorders: Yes - PSYCHIATRIC Hx Anxiety: Yes Hx Emotional Abuse: No Hx Physical Abuse: No Hx Substance Use: No - SURGICAL HISTORY Hx Cardiac Catheterization: Yes ([facility] 2015) Hx Mastectomy: Yes ([facility] 2004) Other/Comment: 11/2016 exp lap with colectomy/colostomy, 07/07/17 exp lap colostomy closure and lower anter bowel resection - ANESTHESIA Hx Anesthesia Reactions: No Hx Malignant Hyperthermia: No Physical Exam - Constitutional Appears: Non-toxic, No Acute Distress - Head Exam Head Exam: ATRAUMATIC, NORMAL INSPECTION, NORMOCEPHALIC - Eye Exam Eye Exam: EOMI, Normal appearance - ENT Exam ENT Exam: Mucous Membranes Moist - Neck Exam Neck exam: Positive for: Lymphadenopathy - Respiratory Exam Respiratory Exam: Chest Wall Tenderness, Clear to Auscultation Bilateral, NORMAL BREATHING PATTERN. absent: Rales, Rhonchi, Wheezes - Cardiovascular Exam Cardiovascular Exam: RRR, +S1, +S2. absent: JVD - GI/Abdominal Exam GI & Abdominal Exam: Normal Bowel Sounds, Soft. absent: Distended, Firm, Guarding, Mass, Organomegaly, Rebound, Tenderness Additional comments: Abdominal Midline Scar Negative Alcantara's Sign - Extremities Exam Extremities exam: Positive for: normal capillary refill. Negative for: pedal edema - Back Exam Back exam: paraspinal tenderness (T5-T7). absent: CVA tenderness (L), CVA tenderness (R), vertebral tenderness - Neurological Exam Neurological exam: Alert, Oriented x3 - Psychiatric Exam Psychiatric exam: Anxious - Skin Skin Exam: Dry, Intact, Normal Color, Warm Results - Vital Signs Recent Vital Signs: Last Vital Signs Temp 98.4 F 10/20/17 05:24 Pulse 96 H 10/20/17 05:24 Resp 18 10/20/17 05:24 BP 134/80 10/20/17 05:24 Pulse Ox 93 L 10/20/17 05:24 - Labs Result Diagrams: 10/20/17 00:20 10/20/17 00:20 Assessment & Plan - Assessment and Plan (Free Text) Assessment: 72 year old female with a PMHx of HLD, GI bleed, Breast CA (Remission), Valvular Heart Disease, Diverticulosis, Diverticulitis, and Pancreatic Cyst who presents complaining of back pain with radiation to the chest. Plan: Back pain with radiation to Chest, R/O ACS DDx: Costochondritis, Thoracic Somatic dysfunction, Rib Exhalation Dysfunction, GERD, Mixed presentation ED: Morphine 4, Dilaudid 1, Zofran x 2, Fluid Bolus, EKG, Urine Culture Serial EKG's Serial Troponins Cardiology Consult (Dr. Barber) UA/UC Flexeril 10 TID PRN Hx of Pancreatic Cyst with Recent EUS GI Consult (Dr. Kam) NPO Lipase- WNL | Amylase -WNL Hx of Valvular Heart Disease Coreg 3.125 BID Hx of HLD Lipitor 20 QPM Proph Protonix Lovenox Patient discussed with Attending Robbin Connelly, PGY1"
[2017-10-20 09:03] LABS: ALB/GLOB RATIO 1.1 (1.1-1.8); ALBUMIN 3.8 g/dL (3.0-4.8); ALT/SGPT 21 U/L (7-56); AMYLASE 42 U/L (35-125); AST/SGOT 16 U/L (14-36); BLOOD UREA NITROGEN 14 mg/dL (7-21); CALCIUM 9.4 mg/dL (8.4-10.5); GFR AFRICAN-AMERICAN > 60; GFR NON-AFRICAN AMERICAN > 60; LIPASE 28 U/L (23-300)
[2017-10-20 09:12] LABS: TROPONIN I < 0.01 ng/mL
--- NOTE | 2017-10-20 10:15 | CARD ---
APPROVED REPORT EKG Measurement Heart [id number] <Conclusion> Sinus rhythm MARA PRWP, V 1 - 6 MALAI, old NSSTW changes No change
[2017-10-20] MEDS: Fluticasone/Vilanterol [Breo Ellipta 100-25 Mcg Inh] INH SCH (10:53)
[2017-10-20] MEDS: Enoxaparin 40 mg Syringe SC SCH (10:53)
[2017-10-20] MEDS: Pantoprazole 40 mg EC Tab PO SCH ×2 (10:53→17:56)
[2017-10-20] MEDS: POLYETHYLENE GLYCOL 3350 17 GM/Dose PACKET PO SCH ×2 (10:53→17:56)
--- NOTE | 2017-10-20 14:14 | CT ---
PROCEDURE: CT Thoracic Spine without contrast HISTORY: back pain COMPARISON: None. TECHNIQUE: Axial computed tomography images were obtained of the thoracic spine without intravenous contrast. Coronal and sagittal reformatted images were created and reviewed. Radiation dose: Total exam DLP = 602 mGy-cm. This CT exam was performed using one or more of the following dose reduction techniques: Automated exposure control, adjustment of the mA and/or kV according to patient size, and/or use of iterative reconstruction technique. FINDINGS: VERTEBRAE: Unremarkable. No fracture. Normal alignment. DISCS/SPINAL CANAL/NEURAL FORAMINA: Within the limits of the CT technique, no disc herniation seen. No central canal or neural foraminal stenosis.. PARASPINAL SOFT TISSUES: Unremarkable. OTHER FINDINGS: Unremarkable. IMPRESSION: Unremarkable CT of the thoracic spine.
--- NOTE | 2017-10-20 14:28 | CT ---
PROCEDURE: CT Lumbar Spine without contrast HISTORY: back pain COMPARISON: None. TECHNIQUE: Axial computed tomography images were obtained of the lumbar spine without the use of intravenous contrast. Coronal and sagittal reformatted images were created and reviewed. Radiation dose: Total exam DLP = 643 mGy-cm. This CT exam was performed using one or more of the following dose reduction techniques: Automated exposure control, adjustment of the mA and/or kV according to patient size, and/or use of iterative reconstruction technique. FINDINGS: VERTEBRAE: Unremarkable. No fracture. Normal alignment. DISCS/SPINAL CANAL/NEURAL FORAMINA: L1-2: Unremarkable. L2-3: Unremarkable. L3-4: Unremarkable. L4-5: Unremarkable. L5-S1: Unremarkable. PARASPINAL SOFT TISSUES: Unremarkable. OTHER FINDINGS: There is facet degeneration in the lower lumbar spine IMPRESSION: No acute findings. No evidence of compression fracture
[2017-10-20] MEDS ORDERED: Gadodiamide 287 MG/ML VIAL (15ML) IV ONE (14:35)
--- NOTE | 2017-10-20 15:25 | MRI ---
PROCEDURE: MRI Abdomen with and without contrast HISTORY: Follow-up pancreatic lesion COMPARISON: 04/25/2017. TECHNIQUE: Multisequence, multiplanar MR images of the abdomen with and without gadolinium contrast enhancement. 15 cc of Omniscan FINDINGS: LIVER: Unremarkable. GALLBLADDER: Unremarkable. SPLEEN: Unremarkable. PANCREAS: There is a cyst in the body of the pancreas measuring 12 x 20 mm. This is unchanged. There is no enhancement. ADRENALS: Unremarkable. KIDNEYS: Unremarkable. AORTA: No aneurysm. ASCITES: None. PERITONEUM: Unremarkable. LYMPH NODES: Unremarkable. OTHER FINDINGS: None. IMPRESSION: 12 x 20 mm cyst in the body of the pancreas unchanged
--- NOTE | 2017-10-20 17:54 | CON ---
DATE: 10/20/2017 INDICATIONS: Mid epigastric and back pain status post recent ERCP. HISTORY OF PRESENT ILLNESS: This is a 72-year-old woman known to me, admitted with mid epigastric and back discomfort, which has been developing for few days. It got worse yesterday and she was admitted to the hospital. This morning, she continues to have discomfort, although it has lessened. The pain is not in the upper chest, but in the mid epigastric area and in the back, including the upper back. It is not associated with shortness of breath, diaphoresis. There is no orthopnea, PND, syncope, presyncope, lightheadedness, dizziness, vertigo, palpitations, edema, claudication, fever, chills, cough, sputum production, hemoptysis, nausea, vomiting, diarrhea, constipation, melena. PAST MEDICAL HISTORY: Her past medical history is complex. She had a recent ERCP in [facility] to evaluate a pancreatic cyst. Apparently, this was aspirated and the fluid was benign although I do not have reports. She had an extensive GI bleed about an year ago, which required an extensive left hemicolectomy with colostomy. Subsequently, the colostomy was reversed along with an appendectomy and lysis of adhesions. She has diverticulosis, a history of breast cancer with remote mastectomy and chemotherapy. She has mitral regurgitation, which is moderate to severe and [id number] LV dysfunction, possibly on the basis of remote chemotherapy. She has hyperlipidemia, GERD, COPD and chronic bronchitis. There is no history of rheumatic fever, angina, myocardial infarction, congestive heart failure, arrhythmia, stroke, TIA, diabetes or gout. She underwent a cardiac catheterization, which by my recollection revealed normal coronaries or only mild coronary artery disease along with [id number] mitral regurgitation. She is being evaluated for possible elective mitral valve repair or replacement in the future by Dr. Zambrano at [facility]. MEDICATIONS AT THE TIME OF ADMISSION: Include Crestor, Coreg and Breo Ellipta. ALLERGIES: THERE ARE NO MEDICATION ALLERGIES REPORTED. SOCIAL HISTORY: She lives at home. She is ambulatory. She does not smoke currently. She does not drink alcohol significantly. FAMILY HISTORY: Noncontributory. REVIEW OF SYSTEMS: A 10-point review of systems is otherwise unremarkable except as noted above. PHYSICAL EXAMINATION GENERAL: She is a well-developed woman lying in bed on 5R, in no acute distress, complaining of mid epigastric and back discomfort. VITAL SIGNS: Heart rate is 96. She is afebrile. Blood pressure 134/80, respirations 18, O2 sat 93% on nasal cannula and room air. HEENT: Reveals no neck vein distention, thyromegaly or carotid bruits. Mucous membranes moist. Conjunctivae pink. NECK: Supple. LUNGS: Lung garvin clear. HEART: Revealed normal first and second heart sounds. There is a systolic murmur at the lower left sternal border and apex. ABDOMEN: Soft. Bowel sounds present. No mass, organomegaly, rebound, guarding, CVA tenderness or palpable abdominal aortic aneurysm. EXTREMITIES: Reveals no cyanosis, clubbing or edema. NEUROLOGIC: Awake, alert and oriented. PSYCHIATRIC: Normal as to mood and affect. SKIN: Warm and dry. No rash or cellulitis. LABORATORY DATA AND IMAGING: Abdominal and pelvis CT scan as noted. It reveals diverticulosis, etc. EKG demonstrates regular sinus rhythm with left anterior hemiblock, poor R-wave progression, nonspecific ST-T wave changes, basically unchanged from a prior EKG. Gallbladder and pancreas ultrasound reveals no acute findings. White count 9900, hemoglobin 11.4, hematocrit 36.3, platelet count 188,000. Electrolyte, BUN, creatinine, blood sugar, LFT, lipase all normal. Urinalysis is noted. IMPRESSION AND PLAN: Paola Morgan is a 72-year-old woman admitted with mid epigastric and back discomfort in the setting of an ERCP for pancreatic cyst on 10/07 at [facility]. She has an extensive GI history, status post extensive resection of the colon for gastrointestinal bleeding with reversal of colostomy and a known pancreatic cyst. She has mitral regurgitation, is undergoing evaluation for possible elective mitral valve intervention in the near future. A cardiac catheterization disclosed normal coronary arteries or mild coronary artery disease (I will review the report). At this time, she is admitted. She is getting analgesics. She has been cultured. She is having a GI evaluation by Dr. Kam. I will continue her Carvedilol, Lipitor. She is getting Lovenox and pain medication. I will check another EKG. I will order a troponin. We will check stool for occult blood. I will follow along with you, make additional recommendations based on her clinical course. Oscar Barber MD [facility] # [id number] [facility]
[2017-10-21] MEDS: Pantoprazole 40 mg EC Tab PO SCH (05:23)
[2017-10-21] MEDS ORDERED: Pantoprazole 40 mg EC Tab PO SCH (06:00)
--- NOTE | 2017-10-21 07:55 | CP.PCM.PN ---
Subjective - Date & Time of Evaluation Date of Evaluation: 10/21/17 Time of Evaluation: 07:00 - Subjective Subjective: Stable on 5R. Less back pain. She feels better. V/S noted PE: Lungs: clear Cor: S1S2 Abd.: soft Ext.: no edema Neuro.: alert ECG 10/20: RSR, LAHB, PRWP, No change Labs noted. Trops neg. x 3. Amyase, lipase NL CT Lumbar and Thoracic spines noted: unremarkable MRCP: noted. Pancreatic cyst only. Objective - Vital Signs/Intake and Output Vital Signs (last 24 hours): Temp Pulse Resp BP Pulse Ox 97.6 F 88 18 101/60 91 L 10/20/17 16:55 10/20/17 18:02 10/20/17 16:55 10/20/17 18:02 10/20/17 16:00 Intake and Output: 10/21/17 10/21/17 06:59 18:59 Intake Total 540 Balance 540 - Medications Medications: Current Medications Atorvastatin Calcium (Lipitor) 20 mg PO QPM [facility] Last Admin: 10/20/17 17:56 Dose: 20 mg Carvedilol (Coreg) 3.125 mg PO BID [facility] Last Admin: 10/20/17 18:02 Dose: Not Given Cyclobenzaprine HCl (Flexeril) 10 mg PO TID PRN PRN Reason: Pain, severe (8-10) Last Admin: 10/21/17 05:23 Dose: 10 mg Enoxaparin Sodium (Lovenox) 40 mg SC DAILY [facility] PRN Reason: Protocol Last Admin: 10/20/17 10:53 Dose: 40 mg Fluticasone/Vilanterol [Breo Ellipta 100-25 Mcg Inh] 1 inhaler INH DAILY [facility] Last Admin: 10/20/17 10:53 Dose: Not Given Pantoprazole Sodium (Protonix Ec Tab) 40 mg PO 0600,1600 [facility] Last Admin: 10/21/17 05:23 Dose: 40 mg Polyethylene Glycol (Miralax) 17 gm PO BID [facility] Last Admin: 10/20/17 17:56 Dose: 17 gm - Labs Labs: 10/20/17 07:30 Assessment and Plan - Assessment and Plan (Free Text) Assessment: Abd. and back pain S/P ERCP for pancreatic cyst H/O GIB and extensive hemicolectomy with colostomy and reversal with appendectomy with lysis of adhesions. MR and LVD Diverticulosis H/O Braest cancer/Mastectomy/Chemo HLD GERD COPD/Chronic Bronchitis Plan: As per GI OOB as katrina. Continue Coreg and Lipitor
[2017-10-21 08:17] VITALS: PULSE 74; RESP 20; TEMP 98.2; O2SAT 94
[2017-10-21 08:37] LABS: BASO # 0.02 K/mm3 (0.0-2.0); BASO % 0.2 % (0.0-3.0); EOS # 0.1 (0.0-0.7); EOS % 1.1 % (1.5-5.0); GRAN # 6.23 (1.4-6.5); GRAN % 77.8 % (50.0-68.0); HEMOGLOBIN 10.4 g/dL (12.0-16.0); LYMPH % 12.4 % (22.0-35.0); MEAN CELL VOLUME 83.5 fl (80.0-105.0); MEAN CORPUSCULAR HEMOGLOBIN 25.6 pg (25.0-35.0); MEAN CORPUSCULAR HGB CONC 30.7 g/dl (31.0-37.0); MEAN PLATELET VOLUME 11.2 fl (7.0-11.0); MONO # 0.7 (0.1-0.6); MONO % 8.5 % (1.0-6.0); RBC 4.06 10^6/uL (3.5-6.1); RED CELL DISTRIBUTION WIDTH 17.5 % (11.5-14.5)
[2017-10-21 08:43] LABS: ALBUMIN 3.7 g/dL (3.0-4.8); ALT/SGPT 19 U/L (7-56); AST/SGOT 19 U/L (14-36); BLOOD UREA NITROGEN 14 mg/dL (7-21); CALCIUM 9.5 mg/dL (8.4-10.5); GFR AFRICAN-AMERICAN > 60; GFR NON-AFRICAN AMERICAN > 60
--- NOTE | 2017-10-21 09:50 | CON ---
DATE: 10/20/2017 This patient was seen and evaluated earlier today. REASON FOR CONSULTATION: Abdominal pain and back pain. HISTORY OF PRESENT ILLNESS: This is a 72-year-old patient with past medical history of diverticulitis, GI bleeding, diverticulosis, history of breast cancer, and valvular disease, presented with acute onset of an abdominal pain and also back pain. No fever. No vomiting. PAST MEDICAL HISTORY: Other past medical history is significant for severe diverticulitis, had diverticular bleed, massive GI bleeding, status post left colon resection. The patient had a pancreatic cystic lesion, had recently EUS evaluation done. Diverticular bleed, the patient had a colonoscopy done on 04/15/2017, found to have diverticulosis. Had colonoscopy done before the reversal and also had an endoscopy done. The patient reversal done before. FAMILY HISTORY: Noncontributory. PHYSICAL EXAMINATION: GENERAL: The patient is lying on the bed, not in acute distress. VITAL SIGNS: Temperature 98.3, blood pressure is 96/52, respirations 20. HEENT: Atraumatic, anicteric. NECK: Supple. HEART: S1 and S2 heard. LUNGS: Bilateral air entry present. ABDOMEN: Soft. There is tenderness present in the epigastric area mainly. EXTREMITIES: No edema. No cyanosis. NEUROLOGIC: Alert and oriented. Moves all extremities. LABORATORY DATA: Hemoglobin 11.4, hematocrit 36.3, WBC is 9.9, platelets 188. CBC essentially unremarkable. IMPRESSION: The CT scan of the abdomen and pelvis done was reviewed. Pancreatic cystic lesion noticed. RECOMMENDATIONS: Would recommend; 1. MRI of the abdomen with magnetic resonance cholangiopancreatography. 2. Clear liquid diet. 3. Review of the CT also showed large amount of stool in the colon. We will start the patient on MiraLax. The patient has a history of peptic ulcer disease. The pain in the epigastric area leading to the back could also be due to esophagitis. The patient will continue the high-dose proton pump inhibitor. Thank you very much for allowing us to participate in the care of the patient. We will start the MiraLax. We will continue to closely follow up her care and suggest further management based on the clinical course. Kain Kam MD [facility] # [id number]
--- NOTE | 2017-10-21 10:02 | CP.PCM.DIS ---
<Sigifredo Ambriz S - Last Filed: 10/21/17 13:06> Provider - Provider Date of Admission: 10/20/17 04:23 Attending physician: Rossana Damon MD Primary care physician: Jeramie Wilkes MD Consults: GI: Dr. Kam Cardiology: Dr. Barber Time Spent in preparation of Discharge (in minutes): 40 Diagnosis - Discharge Diagnosis (1) Intractable back pain Status: Acute Priority: High (2) Pancreatic cyst Status: Chronic Priority: Medium (3) Mitral regurgitation Status: Chronic Priority: Medium (4) History of hyperlipidemia Status: Chronic Priority: Low Hospital Course - Lab Results Lab Results: Most Recent Lab Values WBC 8.0 10^3/ul (4.5-11.0) 10/21/17 08:00 RBC 4.06 10^6/uL (3.5-6.1) 10/21/17 08:00 Hgb 10.4 g/dL (12.0-16.0) L 10/21/17 08:00 Hct 33.9 % (36.0-48.0) L 10/21/17 08:00 MCV 83.5 fl (80.0-105.0) 10/21/17 08:00 MCH 25.6 pg (25.0-35.0) 10/21/17 08:00 MCHC 30.7 g/dl (31.0-37.0) L 10/21/17 08:00 RDW 17.5 % (11.5-14.5) H 10/21/17 08:00 Plt Count 162 10^3/uL (120.0-450.0) 10/21/17 08:00 MPV 11.2 fl (7.0-11.0) H 10/21/17 08:00 Gran % 77.8 % (50.0-68.0) H 10/21/17 08:00 Lymph % (Auto) 12.4 % (22.0-35.0) L 10/21/17 08:00 [place] % (Auto) 8.5 % (1.0-6.0) H 10/21/17 08:00 Eos % (Auto) 1.1 % (1.5-5.0) L 10/21/17 08:00 Baso % (Auto) 0.2 % (0.0-3.0) 10/21/17 08:00 Gran # 6.23 (1.4-6.5) 10/21/17 08:00 Lymph # (Auto) 1.0 (1.2-3.4) L 10/21/17 08:00 [place] # (Auto) 0.7 (0.1-0.6) H 10/21/17 08:00 Eos # (Auto) 0.1 (0.0-0.7) 10/21/17 08:00 Baso # (Auto) 0.02 K/mm3 (0.0-2.0) 10/21/17 08:00 Sodium 142 mmol/L (132-148) 10/21/17 08:00 Potassium 4.4 mmol/L (3.6-5.0) 10/21/17 08:00 Chloride 103 mmol/L (98-107) 10/21/17 08:00 Carbon Dioxide 29 mmol/L (21-33) 10/21/17 08:00 Anion Gap 15 (10-20) 10/21/17 08:00 BUN 14 mg/dL (7-21) 10/21/17 08:00 Creatinine 0.9 mg/dl (0.7-1.2) 10/21/17 08:00 Est GFR ( Amer) > 60 10/21/17 08:00 Est GFR (Non-Af Amer) > 60 10/21/17 08:00 Random Glucose 94 mg/dL (70-110) 10/21/17 08:00 Calcium 9.5 mg/dL (8.4-10.5) 10/21/17 08:00 Total Bilirubin 0.7 mg/dL (0.2-1.3) 10/21/17 08:00 AST 19 U/L (14-36) 10/21/17 08:00 ALT 19 U/L (7-56) 10/21/17 08:00 Alkaline Phosphatase 62 U/L (38-126) 10/21/17 08:00 Troponin I 0.02 ng/mL 10/20/17 23:30 Total Protein 7.4 g/dL (5.8-8.3) 10/21/17 08:00 Albumin 3.7 g/dL (3.0-4.8) 10/21/17 08:00 Globulin 3.7 gm/dL 10/21/17 08:00 Albumin/Globulin Ratio 1.0 (1.1-1.8) L 10/21/17 08:00 Amylase 42 U/L (35-125) 10/20/17 07:30 Lipase 28 U/L (23-300) 10/20/17 07:30 Urine Color Straw (YELLOW) 10/20/17 01:10 Urine Appearance Clear (CLEAR) 10/20/17 01:10 Urine pH 6.5 (4.7-8.0) 10/20/17 01:10 Ur Specific Ola 1.010 (1.005-1.035) 10/20/17 01:10 Urine Protein Negative mg/dL (<30 mg/dL) 10/20/17 01:10 Urine Glucose (UA) Negative mg/dL (NEGATIVE) 10/20/17 01:10 Urine Ketones Negative mg/dL (NEGATIVE) 10/20/17 01:10 Urine Blood Negative (NEGATIVE) 10/20/17 01:10 Urine Nitrate Negative (NEGATIVE) 10/20/17 01:10 Urine Bilirubin Negative (NEGATIVE) 10/20/17 01:10 Urine Urobilinogen 0.2 E.U./dL (<1 E.U./dL) 10/20/17 01:10 Ur Leukocyte Esterase Small Dara/uL (NEGATIVE) H 10/20/17 01:10 Urine RBC 0 - 2 /hpf (0-2) 10/20/17 01:10 Urine WBC 1 - 3 /hpf (0-6) 10/20/17 01:10 Ur Epithelial Cells 1 - 3 /hpf (0-5) 10/20/17 01:10 - Hospital Course Hospital Course: Initial History of Present Illness from 10/20/17: "This patient patient is a 72 year old female with a PMHx of HLD, GI bleed, Breast CA (Remission), Valvular Heart Disease, Diverticulosis, Diverticulitis, Pancreatic Cyst who presents complaining of achy back pain that radiates to the chest. Pain started around 3pm this morning when she bent down to get clothes from the dryer. She rates the pain an 8/10. She tried a lidoderm patch and tylenol to relieve her symptoms without any success. Patient denies any fevers , chills, headache, SOB, palpitations, nausea, vomiting, changes in bowel habits , or urinary symptoms. Patient stated she had EUS done at [facility] by Dr. Lance Hernandez for evaluation of pancreatic cyst on 2017. Path results for negative for malignancy." Hospital Course: Patient admitted for evaluation of back pain with radiation to the epigastrum and lower chest region. Patient had three sets of negative cardiac enzymes. Per gastroenterology, patient was initially on a liquid diet and advanced as tolerated. CT imaging of the thoracic and lumbar spine did not show any acute pathologies. CT of the abdomen/pelvis showed diverticulosis without evidence of diverticulitis. MRCP showed stable pancreatic lesion. Per patient and GI, patient underwent EUS at a higher level tertiary care center and was told that her pancreatic cyst was not concerning for malignancy. She is to follow up with Dr. Kam as an outpatient. Patient is also to follow up with Dr. Barber for further management of her mitral regurgitation. Patient was seen by physical therapy and per their evaluation, patient does not need services as she is independent with activities of daily living. Patient noted improvement in back pain with Flexeril and was discharged with instructions to follow up with her primary physician Dr. Martinez. This is a summary of the hospital course. For more information, refer to the medical records. Discharge Exam - Head Exam Head Exam: ATRAUMATIC, NORMOCEPHALIC - Eye Exam Eye Exam: EOMI, Normal appearance - ENT Exam ENT Exam: Mucous Membranes Moist - Respiratory Exam Respiratory Exam: Clear to PA & Lateral, NORMAL BREATHING PATTERN. absent: Rales, Rhonchi, Wheezes - Cardiovascular Exam Cardiovascular Exam: REGULAR RHYTHM, +S1, +S2 - GI/Abdominal Exam GI & Abdominal Exam: Normal Bowel Sounds, Soft. absent: Distended, Firm, Guarding, Tenderness - Extremities Exam Extremities exam: pedal pulses present - Neurological Exam Neurological exam: Alert, CN II-XII Intact, Oriented x3 - Psychiatric Exam Psychiatric exam: Normal Affect, Normal Mood - Skin Skin Exam: Dry, Intact, Normal Color, Warm Additional comments: Midline scar on abdomen from prior laparotomy Scar on left lower abdomen from prior colostomy Discharge Plan - Discharge Medications Prescriptions: Cyclobenzaprine [Flexeril] 10 mg PO TID PRN #6 tab PRN Reason: Pain, Severe (8-10) Polyethylene Glycol 3350 [Miralax] 17 gm PO BID #14 [email or web address] - Follow Up Plan Condition: STABLE Disposition: HOME/ ROUTINE Instructions: Heart Healthy Diet, Preventing Falls in the Older Adult, Acute Pain, Adult, Flu Vaccine Additional Instructions: Please follow up with your primary physician Dr. Martinez within one week of discharge. Please follow up with Dr. Kam for continued care of your GI issues. Please follow up with Dr. Barber for your heart valve concerns. If there are any new or worsening symptoms, please go to the nearest emergency room. Referrals: Oscar Barber MD [Staff Provider] - Jeramie Wilkes MD [Primary Care Provider] - Kain Kam MD [Medical Doctor] - <Rossana Damon - Last Filed: 10/21/17 15:24> Provider - Provider Date of Admission: 10/20/17 04:23 Attending physician: Rossana Damon MD Primary care physician: Jeramie Wilkes MD Hospital Course - Lab Results Lab Results: Most Recent Lab Values WBC 8.0 10^3/ul (4.5-11.0) 10/21/17 08:00 RBC 4.06 10^6/uL (3.5-6.1) 10/21/17 08:00 Hgb 10.4 g/dL (12.0-16.0) L 10/21/17 08:00 Hct 33.9 % (36.0-48.0) L 10/21/17 08:00 MCV 83.5 fl (80.0-105.0) 10/21/17 08:00 MCH 25.6 pg (25.0-35.0) 10/21/17 08:00 MCHC 30.7 g/dl (31.0-37.0) L 10/21/17 08:00 RDW 17.5 % (11.5-14.5) H 10/21/17 08:00 Plt Count 162 10^3/uL (120.0-450.0) 10/21/17 08:00 MPV 11.2 fl (7.0-11.0) H 10/21/17 08:00 Gran % 77.8 % (50.0-68.0) H 10/21/17 08:00 Lymph % (Auto) 12.4 % (22.0-35.0) L 10/21/17 08:00 [place] % (Auto) 8.5 % (1.0-6.0) H 10/21/17 08:00 Eos % (Auto) 1.1 % (1.5-5.0) L 10/21/17 08:00 Baso % (Auto) 0.2 % (0.0-3.0) 10/21/17 08:00 Gran # 6.23 (1.4-6.5) 10/21/17 08:00 Lymph # (Auto) 1.0 (1.2-3.4) L 10/21/17 08:00 [place] # (Auto) 0.7 (0.1-0.6) H 10/21/17 08:00 Eos # (Auto) 0.1 (0.0-0.7) 10/21/17 08:00 Baso # (Auto) 0.02 K/mm3 (0.0-2.0) 10/21/17 08:00 Sodium 142 mmol/L (132-148) 10/21/17 08:00 Potassium 4.4 mmol/L (3.6-5.0) 10/21/17 08:00 Chloride 103 mmol/L (98-107) 10/21/17 08:00 Carbon Dioxide 29 mmol/L (21-33) 10/21/17 08:00 Anion Gap 15 (10-20) 10/21/17 08:00 BUN 14 mg/dL (7-21) 10/21/17 08:00 Creatinine 0.9 mg/dl (0.7-1.2) 10/21/17 08:00 Est GFR ( Amer) > 60 10/21/17 08:00 Est GFR (Non-Af Amer) > 60 10/21/17 08:00 Random Glucose 94 mg/dL (70-110) 10/21/17 08:00 Calcium 9.5 mg/dL (8.4-10.5) 10/21/17 08:00 Total Bilirubin 0.7 mg/dL (0.2-1.3) 10/21/17 08:00 AST 19 U/L (14-36) 10/21/17 08:00 ALT 19 U/L (7-56) 10/21/17 08:00 Alkaline Phosphatase 62 U/L (38-126) 10/21/17 08:00 Troponin I 0.02 ng/mL 10/20/17 23:30 Total Protein 7.4 g/dL (5.8-8.3) 10/21/17 08:00 Albumin 3.7 g/dL (3.0-4.8) 10/21/17 08:00 Globulin 3.7 gm/dL 10/21/17 08:00 Albumin/Globulin Ratio 1.0 (1.1-1.8) L 10/21/17 08:00 Amylase 42 U/L (35-125) 10/20/17 07:30 Lipase 28 U/L (23-300) 10/20/17 07:30 Urine Color Straw (YELLOW) 10/20/17 01:10 Urine Appearance Clear (CLEAR) 10/20/17 01:10 Urine pH 6.5 (4.7-8.0) 10/20/17 01:10 Ur Specific Ola 1.010 (1.005-1.035) 10/20/17 01:10 Urine Protein Negative mg/dL (<30 mg/dL) 10/20/17 01:10 Urine Glucose (UA) Negative mg/dL (NEGATIVE) 10/20/17 01:10 Urine Ketones Negative mg/dL (NEGATIVE) 10/20/17 01:10 Urine Blood Negative (NEGATIVE) 10/20/17 01:10 Urine Nitrate Negative (NEGATIVE) 10/20/17 01:10 Urine Bilirubin Negative (NEGATIVE) 10/20/17 01:10 Urine Urobilinogen 0.2 E.U./dL (<1 E.U./dL) 10/20/17 01:10 Ur Leukocyte Esterase Small Dara/uL (NEGATIVE) H 10/20/17 01:10 Urine RBC 0 - 2 /hpf (0-2) 10/20/17 01:10 Urine WBC 1 - 3 /hpf (0-6) 10/20/17 01:10 Ur Epithelial Cells 1 - 3 /hpf (0-5) 10/20/17 01:10 Attending/Attestation - Attestation I have personally seen and examined this patient.: Yes I have fully participated in the care of the patient.: Yes I have reviewed all pertinent clinical information, including history, physical exam and plan: Yes Notes (Text): 10/21/17 15:22 attending note; Patient seen and examined with resident. Patient is a 72-year-old female admitted with back pain. Patient with past medical history of Pancreatic cyst, constipation,colostomy reversal. CT of the thoracic and lumbar spine is negative. PT evaluation appreciated. Started on Flexeril/warm compress. CT abdomen and pelvis, MRCP reviewed. MRCP showed stable pancreatic cyst. GI evaluation with Dr. Bautista appreciated. Started on MiraLAX to avoid constipation. cardiology evaluation with Dr. Barber appreciated. Patient will follow up with PMD Dr. Wilkes upon discharge.
[2017-10-21] MEDS: Enoxaparin 40 mg Syringe SC SCH ×2 (10:24→10:32)
[2017-10-21] MEDS: POLYETHYLENE GLYCOL 3350 17 GM/Dose PACKET PO SCH (10:24)
[2017-10-21] MEDS: Fluticasone/Vilanterol [Breo Ellipta 100-25 Mcg Inh] INH SCH (10:30)
[2017-10-21 10:32] VITALS: BP 112/55
--- NOTE | 2017-10-23 14:06 | CARD ---
APPROVED REPORT EKG Measurement Heart [id number] <Conclusion> Normal sinus rhythm Left anterior fascicular block Anterolateral infarct, age undetermined Abnormal ECG
== END 2017-10-21 12:11 | disposition home or self-care (01) ==
LOC: ED 23:00 → ERH 10-20 04:23 → 5RNO 10-20 06:07
PROVIDERS: ADMIT Hospitalist; ATTEND Internal Medicine
DX: K86.2 Cyst of pancreas (principal); K57.90 Diverticulosis of intestine, part unspecified, without perforation or abscess without bleeding; K21.9 Gastro-esophageal reflux disease without esophagitis; J44.9 Chronic obstructive pulmonary disease, unspecified; K92.2 Gastrointestinal hemorrhage, unspecified; I25.119 Atherosclerotic heart disease of native coronary artery with unspecified angina pectoris; I34.0 Nonrheumatic mitral (valve) insufficiency; E78.5 Hyperlipidemia, unspecified; Z85.3 Personal history of malignant neoplasm of breast; Z87.891 Personal history of nicotine dependence; Z90.49 Acquired absence of other specified parts of digestive tract; M54.9 Dorsalgia, unspecified; Z87.11 Personal history of peptic ulcer disease; Z90.13 Acquired absence of bilateral breasts and nipples; Z92.21 Personal history of antineoplastic chemotherapy
CPT/HCPCS: 36415; 72128; 72131; 74177; 74183; 76705; 80053; 81001; 82150; 83690; 84484; 85025; 85027; 87086; 93005; 96361; 96372; 96374; 96375; 96376; 97116; 97161; 99285; A9579; G0378; G8978; G8979; G8980; J1170; J1650; J2270; J2405; J7040; Q9967

== ENCOUNTER 2018-02-02 16:32 | Emergency (ER) | payer MEDICARE ==
[2018-02-02 16:32] VITALS: BMI 29.0
[2018-02-02 16:55] VITALS: RESP 18
[2018-02-02] MEDS ORDERED: Sodium Chloride 0.9% 500 ML IV STA (16:57)
--- NOTE | 2018-02-02 17:17 | ED PDOC ---
Arrival/HPI - General Chief Complaint: Dizziness/Lightheaded Time Seen by Provider: 02/02/18 16:34 Historian: Patient - History of Present Illness Narrative History of Present Illness (Text): 02/02/18 17:14 73 year old female presents to the Emergency department complaining of dizziness described as lightheadedness that began this morning when she woke up. Patient also complains of associated body aches, weakness, and heat flashes. Patient denies any chest pain, shortness of breath, nausea, vomiting, diarrhea, urinary symptoms, back pain, neck pain, headache, or any other complaints. pt states she feels body aches and lightheaded, no vertigo. no syncope PMD: Dr. Wilkes, Dr. Barber 02/02/18 20:36 Time/Duration: Other (less than 1 day) Symptom Onset: Gradual Symptom Course: Unchanged Activities at Onset: Rest Context: Home Past Medical History - Provider Review Nursing Documentation Reviewed: Yes - Infectious Disease Hx of Infectious Diseases: None - Tetanus Immunization Tetanus Immunization: Unknown - Cardiac Hx Hypertension: Yes - Pulmonary Hx Respiratory Disorders: No Hx Bronchitis: Yes - Neurological Hx Neurological Disorder: No - HEENT Hx HEENT Disorder: Yes (eyeglasses for reading) - Renal Hx Renal Disorder: No - Endocrine/Metabolic Hx Endocrine Disorders: No - Hematological/Oncological Hx Blood Disorders: Yes (blood transfusions) Hx Anemia: Yes Hx Cancer: Yes (BREAST) Hx Chemotherapy: Yes - Integumentary Hx Dermatological Disorder: Yes Other/Comment: abd post op dressings and stew dry and intact - Musculoskeletal/Rheumatological Hx Musculoskeletal Disorders: No Hx Falls: No - Gastrointestinal Hx Gastrointestinal Disorders: Yes (hiatal hernia) Hx Colostomy: Yes Hx Diverticulitis: Yes (2011) Hx Gastroesophageal Reflux: Yes Other/Comment: gi bleed , pancreatic cyst - Genitourinary/Gynecological Hx Genitourinary Disorders: Yes - Psychiatric Hx Anxiety: Yes Hx Emotional Abuse: No Hx Physical Abuse: No Hx Substance Use: No - Surgical History Hx Mastectomy: Yes (cirilo 2004) Other/Comment: 11/2016 exp lap with colectomy/colostomy, 07/07/17 exp lap colostomy closure and lower anter bowel resection - Anesthesia Hx Anesthesia: Yes Hx Anesthesia Reactions: No Hx Malignant Hyperthermia: No - Suicidal Assessment Feels Threatened In Home Enviroment: No Family/Social History - Physician Review Nursing Documentation Reviewed: Yes Family/Social History: Unknown Family HX Smoking Status: Never Smoked Hx Alcohol Use: No Hx Substance Use: No Hx Substance Use Treatment: No Allergies/Home Meds Allergies/Adverse Reactions: Allergies No Known Allergies Allergy (Verified 10/19/17 23:48) Home Medications: Home Meds Medication Instructions Recorded Confirmed Rosuvastatin Calcium [Crestor] 5 mg PO QPM 04/07/17 10/19/17 Fluticasone/Vilanterol [Breo 1 inhaler INH DAILY 10/19/17 10/19/17 Ellipta 100-25 Mcg INH] Review of Systems - Physician Review All systems were reviewed & negative as marked: Yes - Review of Systems Respiratory: absent: SOB Cardiovascular: absent: Chest Pain Gastrointestinal: absent: Diarrhea, Nausea Genitourinary Female: absent: Dysuria Musculoskeletal: Myalgias. absent: Back Pain, Neck Pain Neurological: Dizziness. absent: Headache Physical Exam Vital Signs Reviewed: Yes Vital Signs Temp Pulse Resp BP Pulse Ox 02/02/18 19:11 98.7 F 72 18 124/79 99 02/02/18 16:55 98.9 F 80 18 117/85 98 Temperature: Afebrile Blood Pressure: Normal Pulse: Regular Respiratory Rate: Normal Appearance: Positive for: Well-Appearing, Non-Toxic, Comfortable Pain Distress: None Mental Status: Positive for: Alert and Oriented X 3 - Systems Exam Head: Present: Atraumatic, Normocephalic Pupils: Present: PERRL Extroacular Muscles: Present: EOMI Conjunctiva: Present: Normal Mouth: Present: Moist Mucous Membranes Neck: Present: Normal Range of Motion Respiratory/Chest: Present: Clear to Auscultation, Good Air Exchange. No: Respiratory Distress, Accessory Muscle Use Cardiovascular: Present: Regular Rate and Rhythm, Normal S1, S2. No: Murmurs Abdomen: No: Tenderness, Distention, Peritoneal Signs Back: Present: Normal Inspection Upper Extremity: Present: Normal Inspection. No: Cyanosis, Edema Lower Extremity: Present: Normal Inspection. No: Edema Neurological: Present: GCS=15, CN II-XII Intact, Speech Normal Skin: Present: Warm, Dry, Normal Color. No: Rashes Psychiatric: Present: Alert, Oriented x 3, Normal Insight, Normal Concentration Medical Decision Making ED Course and Treatment: 02/02/18 17:19 Impression: 73 year old female presents to the Emergency department complaining of dizziness since this morning. ro cardiac metabolic infectious intracranial etiology Plan: -- CT scan of the head -- Chest xray -- EKG -- Urinalysis -- Labs -- Sodium Chloride IV fluids -- Reassess and disposition Prior Visits: Notes and results from previous visits were reviewed. Patient was last seen in the emergency department on 10/19/17 for abdominal and back pain and was admitted to the hospital. Progress Notes: 02/02/18 20:36 pt reassesed. labs imaging neg. pt offered obs on tele for dizziness, near syncope. declines. states she will return with worsening. - Lab Interpretations Lab Results: 02/02/18 17:10 02/02/18 17:10 Lab Results 02/02/18 18:30: Urine Color Straw, Urine Appearance Clear, Urine pH 6.5, Ur Specific Dewe[place] <= 1.005, Urine Protein Negative, Urine Glucose (UA) Negative, Urine Ketones Negative, Urine Blood Negative, Urine Nitrate Negative, Urine Bilirubin Negative, Urine Urobilinogen 0.2, Ur Leukocyte Esterase Small H, Urine RBC 5 - 10, Urine WBC 0 - 2, Ur Epithelial Cells 6 - 8, Urine Bacteria Trace 02/02/18 17:10: Sodium 142, Potassium 4.1, Chloride 103, Carbon Dioxide 27, Anion Gap 16, BUN 24 H, Creatinine 0.8, Est GFR ( Amer) > 60, Est GFR ( Non-Af Amer) > 60, Random Glucose 92, Calcium 9.5, Magnesium 2.0, Total Bilirubin 0.3, AST 23, ALT 24, Alkaline Phosphatase 101, Lactate Dehydrogenase 448, Total Creatine Kinase 37, Troponin I < 0.01 D, Total Protein 7.9, Albumin 4.1, Globulin 3.8, Albumin/Globulin Ratio 1.1 02/02/18 17:10: PT 12.3, INR 1.08, APTT 27.9 02/02/18 17:10: WBC 7.0, RBC 4.45, Hgb 11.6 L, Hct 36.0, MCV 80.9, MCH 26.1, MCHC 32.2, RDW 16.3 H, Plt Count 206, MPV 10.7, Gran % 71.6 H, Lymph % (Auto) 19.6 L, Coffee % (Auto) 6.5 H, Eos % (Auto) 2.2, Baso % (Auto) 0.1, Gran # 4.98, Lymph # (Auto) 1.4, Coffee # (Auto) 0.5, Eos # (Auto) 0.2, Baso # (Auto) 0.01 - RAD Interpretation Narrative RAD Interpretations (Text): 02/02/2018 18:41:32 CHEST RADIOGRAPH, 1 VIEW FINDINGS: LUNGS: Clear. PLEURA: No pneumothorax or pleural fluid seen. CARDIOVASCULAR: No radiographic findings to suggest acute or significant cardiovascular disease. OSSEOUS STRUCTURES: No significant abnormalities. VISUALIZED UPPER ABDOMEN: Normal. OTHER FINDINGS: None. IMPRESSION: No active disease. No acute/significant interval changes. 02/02/2018 18:17:45 CT HEAD WITHOUT CONTRAST. FINDINGS: HEMORRHAGE: No intracranial hemorrhage. BRAIN: No mass effect or edema. No atrophy or chronic microvascular ischemic changes. VENTRICLES: Unremarkable. No hydrocephalus. CALVARIUM: Unremarkable. PARANASAL SINUSES: Unremarkable as visualized. No significant inflammatory changes. MASTOID AIR CELLS: Unremarkable as visualized. No inflammatory changes. OTHER FINDINGS: None. IMPRESSION: No acute intracranial abnormalities. No significant findings to account for the clinical presentation. No significant interval change compared to the prior examination(s). Radiology Orders: 02/02/18 16:56 HEAD W/O CONTRAST [CT] Stat CHEST ONE VIEW [RAD] Stat - EKG Interpretation EKG Interpretation (Text): 02/02/18 16:50 EKG: Ordered, reviewed, and independently interpreted the EKG. Rate : 69 BPM Rhythm : NSR Interpretation : Nonspecific ST/T changes. Comparison: No interval changes from previous (October 2017). Interpreted by ED Physician: Yes Type: 12 lead EKG - Medication Orders Current Medication Orders: Discontinued Medications Sodium Chloride (Sodium Chloride 0.9%) 500 mls @ 999 mls/hr IV .Q31M STA Stop: 02/02/18 17:27 Last Admin: 02/02/18 17:12 Dose: 999 mls/hr eMAR Start Stop Document 02/02/18 17:12 HI (Rec: 02/02/18 17:12 HI [id number]) Intravenous Solution Start Date 02/02/18 Start Time 17:12 - Scribe Statement The provider has reviewed the documentation as recorded by the Elena Sewell Provider Scribe Attestation: All medical record entries made by the Scribe were at my direction and personally dictated by me. I have reviewed the chart and agree that the record accurately reflects my personal performance of the history, physical exam, medical decision making, and the department course for this patient. I have also personally directed, reviewed, and agree with the discharge instructions and disposition. Disposition/Present on Arrival - Present on Arrival Any Indicators Present on Arrival: No History of DVT/PE: No History of Uncontrolled Diabetes: No Urinary Catheter: No History of Decub. Ulcer: No History Surgical Site Infection Following: None - Disposition Have Diagnosis and Disposition been Completed?: Yes Diagnosis: Dizziness Disposition: HOME/ ROUTINE Disposition Time: 07:00 Condition: STABLE Discharge Instructions (ExitCare): Dizziness, Nonvertigo, (DC) Additional Instructions: please follow up with your doctor. return to er with worsening symptoms or concerns. please see specialists. you are declining observation in the hospital today, however you are able to return to any er with any concern at any time. Referrals: Ewa Alarcon MD [Staff Provider] - Follow up with primary Jin Whitmore MD [Staff Provider] - Follow up with primary Jeramie Wilkes MD [Primary Care Provider] - Follow up with primary Forms: ebl[employer] (Setswana)
[2018-02-02 17:24] LABS: BASO # 0.01 K/mm3 (0.0-2.0); BASO % 0.1 % (0.0-3.0); EOS # 0.2 (0.0-0.7); EOS % 2.2 % (1.5-5.0); GRAN # 4.98 (1.4-6.5); GRAN % 71.6 % (50.0-68.0); HEMOGLOBIN 11.6 g/dL (12.0-16.0); LYMPH # 1.4 (1.2-3.4); LYMPH % 19.6 % (22.0-35.0); MEAN CELL VOLUME 80.9 fl (80.0-105.0); MEAN CORPUSCULAR HEMOGLOBIN 26.1 pg (25.0-35.0); MEAN CORPUSCULAR HGB CONC 32.2 g/dl (31.0-37.0); MEAN PLATELET VOLUME 10.7 fl (7.0-11.0); MONO # 0.5 (0.1-0.6); MONO % 6.5 % (1.0-6.0); RBC 4.45 10^6/uL (3.5-6.1); RED CELL DISTRIBUTION WIDTH 16.3 % (11.5-14.5)
[2018-02-02 17:29] LABS: INR 1.08 (0.93-1.08); PROTHROMBIN TIME 12.3 SECONDS (9.4-12.5)
[2018-02-02 17:30] LABS: PARTIAL THROMBOPLASTIN TIME 27.9 Seconds (25.1-36.5)
[2018-02-02 17:31] LABS: ALB/GLOB RATIO 1.1 (1.1-1.8); ALBUMIN 4.1 g/dL (3.0-4.8); ALT/SGPT 24 U/L (7-56); AST/SGOT 23 U/L (14-36); BLOOD UREA NITROGEN 24 mg/dL (7-21); CALCIUM 9.5 mg/dL (8.4-10.5); GFR AFRICAN-AMERICAN > 60; GFR NON-AFRICAN AMERICAN > 60
[2018-02-02 17:41] LABS: TROPONIN I < 0.01 ng/mL
--- NOTE | 2018-02-02 18:19 | CT ---
PROCEDURE: CT HEAD WITHOUT CONTRAST. HISTORY: dizziness COMPARISON: 04/04/2014 TECHNIQUE: Axial computed tomography images were obtained through the head/brain without intravenous contrast. Coronal and sagittal reconstructed images. Radiation dose: Total exam DLP = 797.02 mGy-cm. This CT exam was performed using one or more of the following dose reduction techniques: Automated exposure control, adjustment of the mA and/or kV according to patient size, and/or use of iterative reconstruction technique. FINDINGS: HEMORRHAGE: No intracranial hemorrhage. BRAIN: No mass effect or edema. No atrophy or chronic microvascular ischemic changes. VENTRICLES: Unremarkable. No hydrocephalus. CALVARIUM: Unremarkable. PARANASAL SINUSES: Unremarkable as visualized. No significant inflammatory changes. MASTOID AIR CELLS: Unremarkable as visualized. No inflammatory changes. OTHER FINDINGS: None. IMPRESSION: No acute intracranial abnormalities. No significant findings to account for the clinical presentation. No significant interval change compared to the prior examination(s).
[2018-02-02 18:38] LABS: PH,URINE 6.5 (4.7-8.0); URINE BILIRUBIN NEGATIVE (NEGATIVE); URINE BLOOD NEGATIVE (NEGATIVE); URINE GLUCOSE (UA) NEGATIVE (NEGATIVE); URINE LEUKOCYTE ESTERASE SMALL Leu/uL (NEGATIVE); URINE PROTEIN NEGATIVE mg/dL (<30 mg/dL); URINE UROBILINOGEN 0.2 E.U./dL (<1 E.U./dL)
--- NOTE | 2018-02-02 18:43 | RAD ---
PROCEDURE: CHEST RADIOGRAPH, 1 VIEW HISTORY: cough COMPARISON: 09/19/2017 FINDINGS: LUNGS: Clear. PLEURA: No pneumothorax or pleural fluid seen. CARDIOVASCULAR: No radiographic findings to suggest acute or significant cardiovascular disease. OSSEOUS STRUCTURES: No significant abnormalities. VISUALIZED UPPER ABDOMEN: Normal. OTHER FINDINGS: None. IMPRESSION: No active disease. No acute/significant interval changes.
[2018-02-02 18:45] LABS: URINE APPEARANCE CLEAR (CLEAR); URINE COLOR STRAW (YELLOW)
[2018-02-02 18:54] LABS: URINE WBC 0 - 2 /hpf (0-6)
[2018-02-02 18:55] LABS: URINE BACTERIA TRACE (NEG)
[2018-02-02 19:40] VITALS: BP 124/79; PULSE 72; TEMP 98.7; O2SAT 99
--- NOTE | 2018-02-03 10:42 | CARD ---
APPROVED REPORT EKG Measurement Heart [id number] <Conclusion> Normal sinus rhythm Left anterior fascicular block PRWP, ALMI, old STTW changes c/w ischemia No change
== END 2018-02-02 19:11 | disposition home or self-care (01) ==
LOC: ED 16:32
DX: R42 Dizziness and giddiness (principal); I10 Essential (primary) hypertension; K21.9 Gastro-esophageal reflux disease without esophagitis; D64.9 Anemia, unspecified
CPT/HCPCS: 70450; 71045; 80053; 81001; 82550; 83615; 83735; 84484; 85025; 85610; 85730; 87086; 93005; 99285; J7040

== ENCOUNTER 2018-10-28 07:53 | Inpatient (IN) | payer MEDICARE ==
[2018-10-28 08:06] VITALS: BMI 29.5
[2018-10-28] MEDS ORDERED: Sodium Chloride 0.9% 1,000 ML IV SCH (08:15)
--- NOTE | 2018-10-28 08:24 | ED PDOC ---
Arrival/HPI - General Chief Complaint: GI Problem Time Seen by Provider: 10/28/18 08:04 Historian: Patient - History of Present Illness Narrative History of Present Illness (Text): 10/28/18 08:17 73 f with hx diverticular disease, colostomy with reversal presents to the ED with acute rectal bleeding. Patient states she had a normal bowel movement this morning and then soon after moved her bowels again with brbpr with clots. Yadiel spencer reports she had a mild stomach upset last night and took tylenol. Patient denies any vomiting, no chest pain, no syncope, no lightheadedness. Time/Duration: 1-3 hours Symptom Onset: Sudden Activities at Onset: Light Context: Home Past Medical History - Provider Review Nursing Documentation Reviewed: Yes - Infectious Disease Hx of Infectious Diseases: None - Tetanus Immunization Tetanus Immunization: Unknown - Cardiac Hx Hypertension: Yes Other/Comment: "leaky valve" - Pulmonary Hx Respiratory Disorders: No Hx Bronchitis: Yes - Neurological Hx Neurological Disorder: No - HEENT Hx HEENT Disorder: Yes (eyeglasses for reading) - Renal Hx Renal Disorder: No - Endocrine/Metabolic Hx Endocrine Disorders: No - Hematological/Oncological Hx Blood Disorders: Yes (blood transfusions) Hx Anemia: Yes Hx Cancer: Yes (BREAST) Hx Chemotherapy: Yes - Integumentary Hx Dermatological Disorder: No - Musculoskeletal/Rheumatological Hx Musculoskeletal Disorders: Yes Hx Falls: Yes - Gastrointestinal Hx Gastrointestinal Disorders: Yes (hiatal hernia) Hx Colostomy: Yes Hx Diverticulitis: Yes (2011) Hx Gastroesophageal Reflux: Yes Other/Comment: gi bleed , pancreatic cyst - Genitourinary/Gynecological Hx Genitourinary Disorders: Yes - Psychiatric Hx Anxiety: Yes Hx Emotional Abuse: No Hx Physical Abuse: No Hx Substance Use: No - Surgical History Hx Mastectomy: Yes (2004) Other/Comment: 11/2016 exp lap with colectomy/colostomy, 07/07/17 exp lap colostomy closure and lower anter bowel resection - Anesthesia Hx Anesthesia: Yes Hx Anesthesia Reactions: No Hx Malignant Hyperthermia: No - Suicidal Assessment Feels Threatened In Home Enviroment: No Family/Social History - Physician Review Nursing Documentation Reviewed: Yes Family/Social History: No Known Family HX Smoking Status: Never Smoked Hx Alcohol Use: No Hx Substance Use: No Hx Substance Use Treatment: No Allergies/Home Meds Allergies/Adverse Reactions: Allergies No Known Allergies Allergy (Verified 10/19/17 23:48) Home Medications: Home Meds Medication Instructions Recorded Confirmed Rosuvastatin Calcium [Crestor] 5 mg PO QPM 04/07/17 10/28/18 Fluticasone/Vilanterol [Breo 1 inhaler INH DAILY 10/19/17 10/28/18 Ellipta 100-25 Mcg INH] ALPRAZolam [Xanax] 0.25 mg PO DAILY 10/28/18 10/28/18 Ranitidine HCl [Zantac] 150 mg PO BID 10/28/18 10/28/18 Review of Systems - Physician Review All systems were reviewed & negative as marked: Yes - Review of Systems Cardiovascular: absent: Chest Pain, Syncope Gastrointestinal: Hematochezia (acute rectal bleeding, brbpr this morning). absent: Vomiting Neurological: absent: Dizziness Physical Exam - Physical Exam Narrative Physical Exam (Text): 10/28/18 08:19 Gen: VS reviewed, alert, well developed, well nourished, nontoxic, mild distress Eye: EOMI, PERRL Neck: no JVD, supple, no adenopathy CV: regular rate, regular rhythm, no rubs,no murmur, S1, S2 Pulm: no distress, clear to auscultation, no wheeze, no rhonchi, breath sounds equal, no rales Abd: soft, very mild tenderness in the LLQ, no guarding, no rebound, no rigidity Ext: no edema Skin: good color, no rash, no cyanosis Psych: responds appropriately to questions, normal affect Neuro: oriented x3, CN2-12 intact grossly, motor intact, sensation intact Rectum: there are nontender external rectal hemorrhoid, there is blood around the anal verge but i could not express any blood from the rectum. the blood noted is bright red. there is small amount of stool noted on the pad the patient is lying on and the stool is brown (no melena). Rectal exam sports activities foul judge RN: Inge 10/28/18 08:25 Vital Signs Reviewed: Yes Vital Signs Temp Pulse Resp BP Pulse Ox 10/28/18 08:15 97.9 F 10/28/18 08:13 92 H 20 147/82 95 Blood Pressure: Normal Pulse: Regular Respiratory Rate: Normal Appearance: Positive for: Well-Appearing, Non-Toxic, Comfortable Pain Distress: None Mental Status: Positive for: Alert and Oriented X 3 Medical Decision Making ED Course and Treatment: 10/28/18 08:24 case discussed with residential substance abuse counselor, agrees with CT imaging and will see pt in consult patient seen for acute rectal bleding, hx diverticular disease, will get CT to rule out diverticulitis as the patient reports mild LLQ pain and has mild ten derness on palpation of the abdomen. vitals are stable at this time. will check H/H. Patient will admitted to the hospital. 10/28/18 09:[address] [place], accepts admit to hospitalist service. patient to be admitted for intermittent rectal bleeding. Hb abd VS are stable at this time, admit to remote tele. 10/28/18 10:[address] hanley, covering for dr. guzmán, is aware of the patient's status in the ED and will see pt in consult - RAD Interpretation Narrative RAD Interpretations (Text): 10/28/18 10:13 CT Abdomen/Pelvis w/ contrast: IMPRESSION: Small ventral hernia containing a segment of bowel. There is no obstruction. There are no acute intra abdominal findings. Radiology Orders: 10/28/18 08:16 ABDOMEN & PELVIS [ABD & PELVIS IV CONTRAST ONLY] [CT] Stat Sink Cutter: Radiologist - EKG Interpretation EKG Interpretation (Text): 10/28/18 09:01 0857: nsr at 71 bpm, nml qrs, nml axis, nonspecific t wave abn Interpreted by ED Physician: Yes - Medication Orders Current Medication Orders: Sodium Chloride (Sodium Chloride 0.9%) 1,000 mls @ 150 mls/hr IV .Q6H40M CAREY - Scribe Statement The provider has reviewed the documentation as recorded by the Scribe Joe Macdonald All medical record entries made by the Scribe were at my direction and personally dictated by me. I have reviewed the chart and agree that the record accurately reflects my personal performance of the history, physical exam, medical decision making, and the department course for this patient. I have also personally directed, reviewed, and agree with the discharge instructions and disposition. Disposition/Present on Arrival - Present on Arrival Any Indicators Present on Arrival: No History of DVT/PE: No History of Uncontrolled Diabetes: No Urinary Catheter: No History of Decub. Ulcer: No History Surgical Site Infection Following: None - Disposition Have Diagnosis and Disposition been Completed?: Yes Diagnosis: Rectal bleed Disposition: HOSPITALIZED Disposition Time: 09:01 Patient Plan: Admission Patient Problems: Current Active Problems Problem Status Onset Rectal bleed Acute Condition: GUARDED
[2018-10-28 08:45] LABS: BASO # 0.03 K/mm3 (0.0-2.0); BASO % 0.5 % (0.0-3.0); EOS # 0.1 (0.0-0.7); EOS % 2.2 % (1.5-5.0); HEMOGLOBIN 12.5 g/dL (12.0-16.0); LYMPH # 1.6 (1.2-3.4); LYMPH % 26.5 % (22.0-35.0); MEAN CELL VOLUME 87.2 fl (80.0-105.0); MEAN CORPUSCULAR HEMOGLOBIN 27.6 pg (25.0-35.0); MEAN CORPUSCULAR HGB CONC 31.6 g/dl (31.0-37.0); MEAN PLATELET VOLUME 11.1 fl (7.0-11.0); MONO # 0.4 (0.1-0.6); MONO % 7.3 % (1.0-6.0); RBC 4.53 10^6/uL (3.5-6.1); WHITE BLOOD COUNT 5.9 10^3/uL (4.5-11.0)
[2018-10-28 08:48] LABS: ALB/GLOB RATIO 1.1 (1.1-1.8); ALBUMIN 4.4 g/dL (3.0-4.8); ALT/SGPT 12 U/L (7-56); AST/SGOT 25 U/L (14-36); BLOOD UREA NITROGEN 23 mg/dL (7-21); CALCIUM 9.8 mg/dL (8.4-10.5); GFR NON-AFRICAN AMERICAN > 60
[2018-10-28 08:53] LABS: INR 1.04; PARTIAL THROMBOPLASTIN TIME 30.7 Seconds (26.9-38.3); PROTHROMBIN TIME 11.7 SECONDS (9.4-12.5)
[2018-10-28] MEDS ORDERED: Iohexol 350 MG/100 ML VIAL ONE (09:02)
--- NOTE | 2018-10-28 09:12 | CP.PCM.HP ---
<Jose Beck - Last Filed: 10/28/18 16:48> History of Present Illness - History of Present Illness History of Present Illness: PGY-1 Medicine H&P for Dr. Belle CC: GI Bleed HPI: Patient is a 73 year old female with past medical history of HLD, GI bleed, Breast CA (Remission), Valvular Heart Disease, Diverticulosis, Diverticulitis, Pancreatic Cyst presenting with bleeding from the rectum. Patient states that she had a normal bowel movement at 5AM today. She then noticed blood coming out of her rectum 2 hours later. She describes the bleeding to be bright red blood, with blood clots, and unsure of the amount of bleeding. She states that she had 2 episodes at home before coming to the hospital. She had 2 more episodes of bleeding while in the ED. Patient was admitted in 2017 for GI bleed that was due to sigmoidal diverticulosis. She underwent emergent left hemicolectomy with end colostomy with eventual reversal several months later. Patient denies fevers, chills, shortness of breath, chest pain, abdominal pain, nausea, vomiting, diarrhea, dysuria, hematuria, and melena. In the ED, hemoglobin dropped from 12.5 to 9.7. Patient will be transfused 1 unit or PRBC. 12 system ROS reviewed and negative except mentioned in HPI. PMHx: HLD, GI bleed, Breast CA (Remission), Valvular Heart Disease, Diverticulosis, Diverticulitis, Pancreatic Cyst Surg: Hemicolectomy w/ colostomy and reversal, B/L mastectomy All: NKDA SH: Former Smoker for a couple years, Quit 50 years ago. Denies Alcohol or illicit drug use FHx: Angina (Mother) Medications: Crestor, Rantidine, Xanax, Breo, Coreg PMD: Dr. Wilkes Cardio: Dr. Barber GI: Dr. Kam Gen Surg: Dr. Osuna Present on Admission - Present on Admission Any Indicators Present on Admission: No History of DVT/PE: No History of Uncontrolled Diabetes: No Urinary Catheter: No Decubitus Ulcer Present: No Past Patient History - Infectious Disease Hx of Infectious Diseases: None - Tetanus Immunizations Tetanus Immunization: Unknown - Past Medical History & Family History Past Medical History?: Yes - Past Social History Smoking Status: Never Smoked - CARDIAC Hx Hypertension: Yes Other/Comment: "leaky valve" - PULMONARY Hx Respiratory Disorders: No Hx Bronchitis: Yes - NEUROLOGICAL Hx Neurological Disorder: No - HEENT Hx HEENT Problems: Yes (eyeglasses for reading) - RENAL Hx Chronic Kidney Disease: No - ENDOCRINE/METABOLIC Hx Endocrine Disorders: No - HEMATOLOGICAL/ONCOLOGICAL Hx Blood Disorders: Yes (blood transfusions) Hx Anemia: Yes Hx Cancer: Yes (BREAST) Hx Chemotherapy: Yes - INTEGUMENTARY Hx Dermatological Problems: No - MUSCULOSKELETAL/RHEUMATOLOGICAL Hx Musculoskeletal Disorders: Yes Hx Falls: Yes - GASTROINTESTINAL Hx Gastrointestinal Disorders: Yes (hiatal hernia) Hx Colostomy: Yes Hx Diverticulitis: Yes (2011) Hx Gastroesophageal Reflux: Yes Other/Comment: gi bleed , pancreatic cyst - GENITOURINARY/GYNECOLOGICAL Hx Genitourinary Disorders: Yes - PSYCHIATRIC Hx Anxiety: Yes Hx Emotional Abuse: No Hx Physical Abuse: No Hx Substance Use: No - SURGICAL HISTORY Hx Mastectomy: Yes (cirilo 2004) Other/Comment: 11/2016 exp lap with colectomy/colostomy, 07/07/17 exp lap colostomy closure and lower anter bowel resection - ANESTHESIA Hx Anesthesia: Yes Hx Anesthesia Reactions: No Hx Malignant Hyperthermia: No Meds Allergies/Adverse Reactions: Allergies Allergy/AdvReac Type Severity Reaction Status Date / Time No Known Allergies Allergy Verified 10/19/17 23:48 Physical Exam - Constitutional Appears: Non-toxic, No Acute Distress Additional comments: Appears lethargic - Head Exam Head Exam: ATRAUMATIC, NORMAL INSPECTION - Eye Exam Eye Exam: EOMI, Normal appearance Pupil Exam: NORMAL ACCOMODATION, PERRL - ENT Exam ENT Exam: Mucous Membranes Moist - Neck Exam Neck exam: Positive for: Normal Inspection - Respiratory Exam Respiratory Exam: Clear to Auscultation Bilateral. absent: Rales, Rhonchi, Wheezes, Respiratory Distress - Cardiovascular Exam Cardiovascular Exam: REGULAR RHYTHM, +S1, +S2. absent: Gallop, Rubs, Systolic Murmur - GI/Abdominal Exam GI & Abdominal Exam: Normal Bowel Sounds, Soft, Tenderness (Mildly tender to palpation in the LRQ and LLQ.). absent: Distended, Firm, Guarding, Rigid - Rectal Exam Rectal Exam: Deferred Additional comments: Patient states that the ED physician just did the exam. - Extremities Exam Extremities exam: Negative for: calf tenderness, pedal edema - Back Exam Back exam: absent: CVA tenderness (L), CVA tenderness (R) - Neurological Exam Neurological exam: Alert, CN II-XII Intact, Oriented x3 - Psychiatric Exam Psychiatric exam: Anxious - Skin Skin Exam: Dry, Intact, Normal Color, Warm Results - Vital Signs Recent Vital Signs: Last Vital Signs Temp 97.9 F 10/28/18 08:15 Pulse 92 H 10/28/18 08:13 Resp 20 10/28/18 08:13 BP 147/82 10/28/18 08:13 Pulse Ox 95 10/28/18 08:13 - Labs Result Diagrams: 10/28/18 12:50 10/28/18 08:23 Labs: Laboratory Results - last 24 hr 10/28/18 10/28/18 10/28/18 08:23 08:23 08:23 WBC 5.9 RBC 4.53 Hgb 12.5 Hct 39.5 MCV 87.2 D MCH 27.6 MCHC 31.6 RDW 15.0 H Plt Count 230 MPV 11.1 H Neut % (Auto) 63.5 Lymph % (Auto) 26.5 [facility] % (Auto) 7.3 H Eos % (Auto) 2.2 Baso % (Auto) 0.5 Lymph # (Auto) 1.6 [facility] # (Auto) 0.4 Eos # (Auto) 0.1 Baso # (Auto) 0.03 Absolute Neuts (auto) 3.76 PT 11.7 INR 1.04 APTT 30.7 Sodium 142 Potassium 3.7 Chloride 105 Carbon Dioxide 27 Anion Gap 14 BUN 23 H Creatinine 0.9 Est GFR ( Amer) > 60 Est GFR (Non-Af Amer) > 60 Random Glucose 114 H Calcium 9.8 Total Bilirubin 0.4 AST 25 ALT 12 Alkaline Phosphatase 83 Total Protein 8.5 H Albumin 4.4 Globulin 4.1 Albumin/Globulin Ratio 1.1 BBK History Checked 10/28/18 08:23 WBC RBC Hgb Hct MCV MCH MCHC RDW Plt Count MPV Neut % (Auto) Lymph % (Auto) [facility] % (Auto) Eos % (Auto) Baso % (Auto) Lymph # (Auto) [facility] # (Auto) Eos # (Auto) Baso # (Auto) Absolute Neuts (auto) PT INR APTT Sodium Potassium Chloride Carbon Dioxide Anion Gap BUN Creatinine Est GFR ( Amer) Est GFR (Non-Af Amer) Random Glucose Calcium Total Bilirubin AST ALT Alkaline Phosphatase Total Protein Albumin Globulin Albumin/Globulin Ratio BBK History Checked Patient has bt Assessment & Plan - Assessment and Plan (Free Text) Assessment: 73 yo F with PMH of HLD, GI bleed, Breast CA (Remission), Valvular Heart Dis ease, Diverticulosis, Diverticulitis, Pancreatic Cyst presents to [facility] [facility] for GI bleed. Patient will be admitted to the ICU for hemorrhagic shock 2/2 lower GI bleed. Plan: Rectal bleeding: - Abd/Pelv CT: small ventral hernia containing a segment of bowel, without signs of obstruction - GI Bleeding scan: No evidence of active GI bleeding - NS at 150 cc/hr - Protonix 40mg IV BID - NPO - GI consulted, Dr. Kam - Surgery consulted, Dr. Osuna - Hgb 12.5 dropped to 9.7 - Transfusing 1 unit pRBC - Monitor patient in ICU - CBC Q6h - High fall risk protocol HTN - Hold home medication, Coreg HLD - Hold home medication, Crestor History of anxiety - Xanax 0.25mg PO HS Prophylaxis: - Protonix 40mg IV BID - DVT: SCD's Patient seen and case discussed with attending, Dr. Barbra Beck, PGY-1 <Ewa Belle - Last Filed: 11/02/18 14:19> Results - Vital Signs Recent Vital Signs: Last Vital Signs Temp 98.2 F 11/01/18 14:00 Pulse 69 11/01/18 14:00 Resp 20 11/01/18 14:00 BP 93/61 L 11/01/18 14:00 Pulse Ox 93 L 11/01/18 14:00 - Labs Result Diagrams: 11/01/18 07:00 11/01/18 07:00 Labs: Laboratory Results - last 24 hr 10/28/18 08:23 Crossmatch See Detail Attending/Attestation - Attestation I have personally seen and examined this patient.: Yes I have fully participated in the care of the patient.: Yes I have reviewed all pertinent clinical information: Yes Notes (Text): 11/02/18 14:17 Medical record note made by the resident after discussion with my direction and input after the patient was personally seen and examined by me. I have reviewed the chart and agree that the record accurately reflects by personal performance of the history, physical exam, data review, and medical decision-making, in the course for the patient. I have also personally directed the plan of care. 73 yo F with PMH of HLD, GI bleed, Breast CA (Remission), Valvular Heart Disease, Diverticulosis, Diverticulitis,so Colostomy and Colostomy reversal, Pancreatic Cyst presents to [facility] [place] due to lower GI bleeding, Hemoglobin dropped to 9.5,she is going to be transferred patient to ICU,Bleeding scan is ordered.We will transude PRBC and will monitor blood count. GI and surgery is consulted. Management plan was discussed in detail with patient. Education was provided. .
--- NOTE | 2018-10-28 10:16 | CT ---
Date of service: 10/28/2018 PROCEDURE: CT Abdomen and Pelvis with contrast HISTORY: rectal bleed,divertic, hx colostomy and reversal COMPARISON: 10/20/2017 CT TECHNIQUE: Contrast dose: 100 cc of Omni 350 Radiation dose: Total exam DLP = 792.17 mGy-cm. This CT exam was performed using one or more of the following dose reduction techniques: Automated exposure control, adjustment of the mA and/or kV according to patient size, and/or use of iterative reconstruction technique. FINDINGS: LOWER THORAX: Unremarkable. LIVER: Unremarkable. No gross lesion or ductal dilatation. GALLBLADDER AND BILE DUCTS: Unremarkable. PANCREAS: Unremarkable. No gross lesion or ductal dilatation. There is a simple cyst in the pancreas measuring 15 x 21 mm. This is unchanged SPLEEN: Unremarkable. ADRENALS: Unremarkable. No mass. KIDNEYS AND URETERS: Unremarkable. No hydronephrosis. No solid mass. VASCULATURE: Unremarkable. No aortic aneurysm. No aortic atherosclerotic calcification or mural plaque present. BOWEL: Unremarkable. No obstruction. No gross mural thickening. There is a small ventral hernia which contains a segment of bowel. This measures 3.6 cm in height by 2.2 cm AP x 4.1 cm wide. There is no associated obstruction. APPENDIX: Normal appendix. PERITONEUM: Unremarkable. No free fluid. No free air. LYMPH NODES: Unremarkable. No enlarged lymph nodes. BLADDER: Unremarkable. REPRODUCTIVE: Unremarkable. BONES: No acute fracture. OTHER FINDINGS: None. IMPRESSION: Small ventral hernia containing a segment of bowel. There is no obstruction. There are no acute intra abdominal findings.
--- NOTE | 2018-10-28 11:36 | CARD ---
APPROVED REPORT Date of service: 10/28/2018 EKG Measurement Heart [id number] <Conclusion> Normal sinus rhythm Left anterior fascicular block Possible Anterolateral infarct, age undetermined? ST-T Changes.
[2018-10-28 13:05] LABS: MEAN CORPUSCULAR HEMOGLOBIN 27.3 pg (25.0-35.0); MEAN CORPUSCULAR HGB CONC 31.4 g/dl (31.0-37.0); MEAN PLATELET VOLUME 10.9 fl (7.0-11.0); RBC 3.55 10^6/uL (3.5-6.1); RED CELL DISTRIBUTION WIDTH 14.9 % (11.5-14.5); WHITE BLOOD COUNT 7.3 10^3/uL (4.5-11.0)
[2018-10-28 13:13] LABS: HEMOGLOBIN 9.7 g/dL (12.0-16.0)
--- NOTE | 2018-10-28 14:09 | CP.PCM.CON ---
History of Present Illness - History of Present Illness History of Present Illness: Surgery Consult Note for Dr. Osuna Patient is a 73 yo female with a PMHx of HLD, GI bleed, Breast CA (Remission), Valvular Heart Disease, Diverticulosis, Diverticulitis, Pancreatic Cyst who presents complaining of acute rectal bleeding. Patient states that she had bright red blood per bowel movement at home. By time she got to hospital the bleeding had stopped. However, bleeding restarted in ED with slight abdomainl pain bilateral lower quadrants. Has had prior episode in past. Denies fevers, chills, chest pain, sob, n/v, constipation or diarrhea, and dysuria, and dizziness. PMHx: HLD, GI bleed, Breast CA (Remission), Valvular Heart Disease, Diverticulosis, Diverticulitis, Pancreatic Cyst PSHx: Hemicolectomy w/ colostomy and reversal, B/L mastectomy, Allergies: NKDA SocialHx: Former Smoker for a couple years, Quit 50 years ago. Denies Alcohol or illicit drug use Hos: 2016 for colostomy reversal FamHx: Angina (Mother) Meds: Crestor 5 HS Review of Systems - Review of Systems All systems: reviewed and no additional remarkable complaints except Review of Systems: see HPI Past Patient History - Infectious Disease Hx of Infectious Diseases: None - Tetanus Immunizations Tetanus Immunization: Unknown - Past Medical History & Family History Past Medical History?: Yes - Past Social History Smoking Status: Never Smoked - CARDIAC Hx Cardiac Disorders: Yes Hx Hypercholesterolemia: Yes Hx Hypertension: Yes Other/Comment: valvular heart disease "I have a leaky valve from chemo." monitoring leaky valve, spider veins - PULMONARY Hx Respiratory Disorders: Yes Hx Bronchitis: Yes - NEUROLOGICAL Hx Neurological Disorder: Yes Hx Dizziness: Yes - HEENT Hx HEENT Problems: Yes (eyeglasses for reading) - RENAL Hx Chronic Kidney Disease: No - ENDOCRINE/METABOLIC Hx Endocrine Disorders: No - HEMATOLOGICAL/ONCOLOGICAL Hx Blood Disorders: Yes (blood transfusions multiple 11/2016) Hx Anemia: Yes Hx Cancer: Yes (BREAST) Hx Chemotherapy: Yes Other/Comment: b/l mastectomy 2004 with reconstruction has implants, tx by dr gisela james at [facility] - INTEGUMENTARY Hx Dermatological Problems: Yes Other/Comment: healed surgical abd scar - MUSCULOSKELETAL/RHEUMATOLOGICAL Hx Musculoskeletal Disorders: Yes Hx Arthritis: Yes (lower back/left shoulder) Hx Falls: Yes (has chronic r hip pain from fall post resection) - GASTROINTESTINAL Hx Gastrointestinal Disorders: Yes (hiatal hernia, hemorrhoid) Hx Colostomy: Yes Hx Diverticulitis: Yes (2012/diverticulosis) Hx Gastroesophageal Reflux: Yes Other/Comment: gi bleed , pancreatic cyst checked 09/20/18 no change - GENITOURINARY/GYNECOLOGICAL Hx Genitourinary Disorders: Yes - PSYCHIATRIC Hx Psychophysiologic Disorder: Yes Hx Anxiety: Yes - SURGICAL HISTORY Hx Surgeries: Yes Hx Appendectomy: Yes (with bowel resection) Hx Cardiac Catheterization: Yes ([facility] 2015) Hx Mastectomy: Yes (cirilo 2005 implants) Other/Comment: 11/2016 exp lap with colectomy/colostomy, 07/07/17 exp lap colostomy closure and lower anter bowel resection, tonsillectomy age 15 - ANESTHESIA Hx Anesthesia: Yes Hx Anesthesia Reactions: No Hx Malignant Hyperthermia: No Meds Allergies/Adverse Reactions: Allergies Allergy/AdvReac Type Severity Reaction Status Date / Time No Known Allergies Allergy Verified 10/19/17 23:48 - Medications Medications: Current Medications Alprazolam (Xanax) 0.25 mg PO HS CAREY; Protocol Stop: 11/04/18 22:01 Sodium Chloride (Sodium Chloride 0.9%) 1,000 mls @ 150 mls/hr IV .Q6H40M [facility] Last Admin: 10/28/18 08:28 Dose: 150 mls/hr Breo Ellipta 100-25 (Mcg Inh (Home Med)) 1 inhaler INH DAILY [facility] Pantoprazole Sodium (Protonix Inj) 40 mg IVP Q12 [facility] Last Admin: 10/28/18 12:36 Dose: 40 mg Physical Exam - Constitutional Appears: Non-toxic, No Acute Distress - Head Exam Head Exam: NORMAL INSPECTION - Eye Exam Eye Exam: EOMI, Normal appearance - Respiratory Exam Respiratory Exam: NORMAL BREATHING PATTERN - Cardiovascular Exam Cardiovascular Exam: REGULAR RHYTHM, +S1, +S2 - GI/Abdominal Exam GI & Abdominal Exam: Normal Bowel Sounds, Soft, Tenderness Additional comments: tenderness in bilateral lower quadrant - Exam Additional comments: melanotic stool was noted during examination rectal exam deferred 2/2 patient deferring; ED did rectal exam prior to surgery team coming - Extremities Exam Extremities exam: Positive for: normal inspection. Negative for: calf tenderness, pedal edema - Neurological Exam Neurological exam: Alert, Oriented x3 - Psychiatric Exam Psychiatric exam: Anxious - Skin Skin Exam: Intact, Normal Color Results - Vital Signs Recent Vital Signs: Last Vital Signs Temp 97.9 F 10/28/18 08:15 Pulse 78 10/28/18 13:55 Resp 18 10/28/18 13:55 BP 107/60 10/28/18 13:55 Pulse Ox 95 10/28/18 13:55 - Labs Result Diagrams: 10/28/18 12:50 10/28/18 08:23 Labs: Laboratory Results - last 24 hr 10/28/18 10/28/18 10/28/18 08:23 08:23 08:23 WBC 5.9 RBC 4.53 Hgb 12.5 Hct 39.5 MCV 87.2 D MCH 27.6 MCHC 31.6 RDW 15.0 H Plt Count 230 MPV 11.1 H Neut % (Auto) 63.5 Lymph % (Auto) 26.5 [place] % (Auto) 7.3 H Eos % (Auto) 2.2 Baso % (Auto) 0.5 Lymph # (Auto) 1.6 [place] # (Auto) 0.4 Eos # (Auto) 0.1 Baso # (Auto) 0.03 Absolute Neuts (auto) 3.76 PT 11.7 INR 1.04 APTT 30.7 Sodium 142 Potassium 3.7 Chloride 105 Carbon Dioxide 27 Anion Gap 14 BUN 23 H Creatinine 0.9 Est GFR ( Amer) > 60 Est GFR (Non-Af Amer) > 60 Random Glucose 114 H Calcium 9.8 Total Bilirubin 0.4 AST 25 ALT 12 Alkaline Phosphatase 83 Total Protein 8.5 H Albumin 4.4 Globulin 4.1 Albumin/Globulin Ratio 1.1 Blood Type Antibody Screen Crossmatch BBK History Checked 10/28/18 10/28/18 08:23 12:50 WBC 7.3 D RBC 3.55 Hgb 9.7 L D Hct 30.9 L MCV 87.0 MCH 27.3 MCHC 31.4 RDW 14.9 H Plt Count 176 MPV 10.9 Neut % (Auto) Lymph % (Auto) [place] % (Auto) Eos % (Auto) Baso % (Auto) Lymph # (Auto) [place] # (Auto) Eos # (Auto) Baso # (Auto) Absolute Neuts (auto) PT INR APTT Sodium Potassium Chloride Carbon Dioxide Anion Gap BUN Creatinine Est GFR ( Amer) Est GFR (Non-Af Amer) Random Glucose Calcium Total Bilirubin AST ALT Alkaline Phosphatase Total Protein Albumin Globulin Albumin/Globulin Ratio Blood Type A POSITIVE Antibody Screen Negative Crossmatch See Detail BBK History Checked Patient has bt Assessment & Plan - Assessment and Plan (Free Text) Assessment: 73 yo female w/ PMH HLD, GI bleed, Breast CA (Remission), Valvular Heart Disease, Diverticulosis, Diverticulitis, Pancreatic Cyst admitted for active rectal bleeding. Plan: Hgb trending down on repeat cbc; Hemodynamically stable CT abdomen shows no active bleed GI input appreciated; pending bleeding scan; F/U GI recs replete as needed IVF Further recs as per Dr. Osuna PGY-1 Thomas Torres
[2018-10-28] MEDS ORDERED: Influenza Vaccine 60 mcg/0.5 mL SYR (4YR UP) IM ONE (14:24)
[2018-10-28] MEDS ORDERED: Pneumococcal 23-Valent Vaccine IM ONE (14:24)
--- NOTE | 2018-10-28 15:02 | CP.PCM.CON ---
<Jaylan Wagner - Last Filed: 10/28/18 15:35> History of Present Illness - History of Present Illness History of Present Illness: ICU Consult Note for Dr. Travis Reason for consultation: GI Bleed 73 yo F with PMH of HLD, GI bleed, Breast CA (Remission), Valvular Heart Disease, Diverticulosis, Diverticulitis, Pancreatic Cyst presents to [facility] due to BRBPR and clots prior to arrival. Patient states that last normal bowel movement was this AM. Patient states that bleeding continued while in the ED with associated lower abdominal pain. Of note, patient was admitted in 2017 for GI bleed that was due to sigmoidal diverticulosis. She underwent emergent left hemicolectomy with end colostomy with eventual reversal several months later. In the ED, hemoglobin dropped from 12.5 to 9.7, prompting ICU consultation. Patient currently denies CP, SOB, n/v/d, fever, chills, STEPHENSON, dizziness, dysuria, hem aturia, and melena. PMHx: HLD, GI bleed, Breast CA (Remission), Valvular Heart Disease, Diverticulo sis, Diverticulitis, Pancreatic Cyst Surg: Hemicolectomy w/ colostomy and reversal, B/L mastectomy All: NKDA SH: Former Smoker for a couple years, Quit 50 years ago. Denies Alcohol or illicit drug use FHx: Angina (Mother) Medications: Crestor, Rantidine, Xanax, Breo, Coreg Review of Systems - Review of Systems All systems: reviewed and no additional remarkable complaints except (12 point ROS reviewed and is negative other than what is stated in HPI.) Past Patient History - Infectious Disease Hx of Infectious Diseases: None - Tetanus Immunizations Tetanus Immunization: Unknown - Past Medical History & Family History Past Medical History?: Yes - Past Social History Smoking Status: Never Smoked - CARDIAC Hx Cardiac Disorders: Yes Hx Hypercholesterolemia: Yes Hx Hypertension: Yes Other/Comment: valvular heart disease "I have a leaky valve from chemo." monitoring leaky valve, spider veins - PULMONARY Hx Respiratory Disorders: Yes Hx Bronchitis: Yes - NEUROLOGICAL Hx Neurological Disorder: Yes Hx Dizziness: Yes - HEENT Hx HEENT Problems: Yes (eyeglasses for reading) - RENAL Hx Chronic Kidney Disease: No - ENDOCRINE/METABOLIC Hx Endocrine Disorders: No - HEMATOLOGICAL/ONCOLOGICAL Hx Blood Disorders: Yes (blood transfusions multiple 11/2016) Hx Anemia: Yes Hx Cancer: Yes (BREAST) Hx Chemotherapy: Yes Other/Comment: b/l mastectomy 2005 with reconstruction has implants, tx by dr gisela james at [facility] - INTEGUMENTARY Hx Dermatological Problems: Yes Other/Comment: healed surgical abd scar - MUSCULOSKELETAL/RHEUMATOLOGICAL Hx Musculoskeletal Disorders: Yes Hx Arthritis: Yes (lower back/left shoulder) Hx Falls: Yes (has chronic r hip pain from fall post resection) - GASTROINTESTINAL Hx Gastrointestinal Disorders: Yes (hiatal hernia, hemorrhoid) Hx Colostomy: Yes Hx Diverticulitis: Yes (2012/diverticulosis) Hx Gastroesophageal Reflux: Yes Other/Comment: gi bleed , pancreatic cyst checked 09/20/18 no change - GENITOURINARY/GYNECOLOGICAL Hx Genitourinary Disorders: Yes - PSYCHIATRIC Hx Psychophysiologic Disorder: Yes Hx Anxiety: Yes - SURGICAL HISTORY Hx Surgeries: Yes Hx Appendectomy: Yes (with bowel resection) Hx Cardiac Catheterization: Yes ([facility] 2015) Hx Mastectomy: Yes ([facility] 2005 implants) Other/Comment: 11/2016 exp lap with colectomy/colostomy, 07/07/17 exp lap colostomy closure and lower anter bowel resection, tonsillectomy age 15 - ANESTHESIA Hx Anesthesia: Yes Hx Anesthesia Reactions: No Hx Malignant Hyperthermia: No Meds Allergies/Adverse Reactions: Allergies Allergy/AdvReac Type Severity Reaction Status Date / Time No Known Allergies Allergy Verified 10/19/17 23:48 - Medications Medications: Current Medications Alprazolam (Xanax) 0.25 mg PO HS [facility]; Protocol Stop: 11/04/18 22:01 Sodium Chloride (Sodium Chloride 0.9%) 1,000 mls @ 150 mls/hr IV .Q6H40M [facility] Last Admin: 10/28/18 08:28 Dose: 150 mls/hr Breo Ellipta 100-25 ([facility] (Home Med)) 1 inhaler INH DAILY [facility] Pantoprazole Sodium (Protonix Inj) 40 mg IVP Q12 [facility] Last Admin: 10/28/18 12:36 Dose: 40 mg Physical Exam - Constitutional Appears: No Acute Distress - Head Exam Head Exam: NORMAL INSPECTION - Eye Exam Eye Exam: Normal appearance - ENT Exam ENT Exam: Mucous Membranes Moist, Normal Exam - Neck Exam Neck exam: Positive for: Normal Inspection - Respiratory Exam Respiratory Exam: Clear to Auscultation Bilateral. absent: Rales, Rhonchi, Wheezes - Cardiovascular Exam Cardiovascular Exam: RRR, +S1, +S2. absent: Diastolic murmur, Gallop, Rubs, Systolic Murmur - GI/Abdominal Exam GI & Abdominal Exam: Soft, Tenderness (b/l lower quadrants). absent: Diminished Bowel Sounds, Guarding, Rebound - Rectal Exam Rectal Exam: Deferred (patient request; previous rectal exam noted to have melanotic stool) - Extremities Exam Extremities exam: Positive for: normal inspection - Back Exam Back exam: NORMAL INSPECTION - Neurological Exam Neurological exam: Alert, CN II-XII Intact, Oriented x3 - Psychiatric Exam Psychiatric exam: Anxious - Skin Skin Exam: Dry, Intact, Normal Color, Warm Results - Vital Signs Recent Vital Signs: Last Vital Signs Temp 97.9 F 10/28/18 08:15 Pulse 96 H 10/28/18 13:59 Resp 18 10/28/18 13:59 BP 107/60 10/28/18 13:55 Pulse Ox 95 10/28/18 13:55 - Labs Result Diagrams: 10/28/18 12:50 10/28/18 08:23 Labs: Laboratory Results - last 24 hr 10/28/18 10/28/18 10/28/18 08:23 08:23 08:23 WBC 5.9 RBC 4.53 Hgb 12.5 Hct 39.5 MCV 87.2 D MCH 27.6 MCHC 31.6 RDW 15.0 H Plt Count 230 MPV 11.1 H Neut % (Auto) 63.5 Lymph % (Auto) 26.5 Mcminn % (Auto) 7.3 H Eos % (Auto) 2.2 Baso % (Auto) 0.5 Lymph # (Auto) 1.6 Mcminn # (Auto) 0.4 Eos # (Auto) 0.1 Baso # (Auto) 0.03 Absolute Neuts (auto) 3.76 PT 11.7 INR 1.04 APTT 30.7 Sodium 142 Potassium 3.7 Chloride 105 Carbon Dioxide 27 Anion Gap 14 BUN 23 H Creatinine 0.9 Est GFR ( Amer) > 60 Est GFR (Non-Af Amer) > 60 Random Glucose 114 H Calcium 9.8 Total Bilirubin 0.4 AST 25 ALT 12 Alkaline Phosphatase 83 Total Protein 8.5 H Albumin 4.4 Globulin 4.1 Albumin/Globulin Ratio 1.1 Blood Type Antibody Screen Crossmatch BBK History Checked 10/28/18 10/28/18 08:23 12:50 WBC 7.3 D RBC 3.55 Hgb 9.7 L D Hct 30.9 L MCV 87.0 MCH 27.3 MCHC 31.4 RDW 14.9 H Plt Count 176 MPV 10.9 Neut % (Auto) Lymph % (Auto) Mcminn % (Auto) Eos % (Auto) Baso % (Auto) Lymph # (Auto) Mcminn # (Auto) Eos # (Auto) Baso # (Auto) Absolute Neuts (auto) PT INR APTT Sodium Potassium Chloride Carbon Dioxide Anion Gap BUN Creatinine Est GFR ( Amer) Est GFR (Non-Af Amer) Random Glucose Calcium Total Bilirubin AST ALT Alkaline Phosphatase Total Protein Albumin Globulin Albumin/Globulin Ratio Blood Type A POSITIVE Antibody Screen Negative Crossmatch See Detail BBK History Checked Patient has bt Assessment & Plan - Assessment and Plan (Free Text) Assessment: 73 yo F with PMH of HLD, GI bleed, Breast CA (Remission), Valvular Heart Dise ase, Diverticulosis, Diverticulitis, Pancreatic Cyst presents to [facility] for GI bleed. Patient will be admitted to the ICU for hemorrhagic shock 2/2 lower GI bleed. Plan: Neuro: - AOx3 - Maintain normothermia CV: - Hold beta blockers and anti-hypertensives - Maintain MAP > 65 - Cont to monitor vitals Pulm: - Maintain O2 > 92% GI: - Abd/Pelv CT showed small ventral hernia without signs of obstruction - Bleeding scan pending - Cont NS at 150 cc/hr - Protonix IV BID - NPO - GI consulted - Surgery consulted Renal: - Maintain euvolemia - Monitor electrolytes and replete as needed Heme: - Hgb 12.5 dropped to 9.7 - Transfusing 1 unit pRBC - CBC q6h - SCD's for DVT ppx Endo: - Maintain euglycemia Patient discussed in detail with Dr. Travis. Phillip Wagner, DO PGY2 <Vincent Travis - Last Filed: 10/28/18 16:59> Meds - Medications Medications: Current Medications Alprazolam (Xanax) 0.25 mg PO HS [facility]; Protocol Stop: 11/04/18 22:01 Sodium Chloride (Sodium Chloride 0.9%) 1,000 mls @ 150 mls/hr IV .Q6H40M [facility] Last Admin: 10/28/18 08:28 Dose: 150 mls/hr Breo Ellipta 100-25 ([facility] (Home Med)) 1 inhaler INH DAILY [facility] Pantoprazole Sodium (Protonix Inj) 40 mg IVP Q12 [facility] Last Admin: 10/28/18 12:36 Dose: 40 mg Results - Vital Signs Recent Vital Signs: Last Vital Signs Temp 97.9 F 10/28/18 16:42 Pulse 82 10/28/18 16:42 Resp 18 10/28/18 16:42 BP 141/74 10/28/18 16:42 Pulse Ox 97 10/28/18 16:28 - Labs Result Diagrams: 10/28/18 12:50 10/28/18 08:23 Labs: Laboratory Results - last 24 hr 10/28/18 10/28/18 10/28/18 08:23 08:23 08:23 WBC 5.9 RBC 4.53 Hgb 12.5 Hct 39.5 MCV 87.2 D MCH 27.6 MCHC 31.6 RDW 15.0 H Plt Count 230 MPV 11.1 H Neut % (Auto) 63.5 Lymph % (Auto) 26.5 Mcminn % (Auto) 7.3 H Eos % (Auto) 2.2 Baso % (Auto) 0.5 Lymph # (Auto) 1.6 Mcminn # (Auto) 0.4 Eos # (Auto) 0.1 Baso # (Auto) 0.03 Absolute Neuts (auto) 3.76 PT 11.7 INR 1.04 APTT 30.7 Sodium 142 Potassium 3.7 Chloride 105 Carbon Dioxide 27 Anion Gap 14 BUN 23 H Creatinine 0.9 Est GFR ( Amer) > 60 Est GFR (Non-Af Amer) > 60 Random Glucose 114 H Calcium 9.8 Total Bilirubin 0.4 AST 25 ALT 12 Alkaline Phosphatase 83 Total Protein 8.5 H Albumin 4.4 Globulin 4.1 Albumin/Globulin Ratio 1.1 Blood Type Antibody Screen Crossmatch BBK History Checked 10/28/18 10/28/18 08:23 12:50 WBC 7.3 D RBC 3.55 Hgb 9.7 L D Hct 30.9 L MCV 87.0 MCH 27.3 MCHC 31.4 RDW 14.9 H Plt Count 176 MPV 10.9 Neut % (Auto) Lymph % (Auto) Mcminn % (Auto) Eos % (Auto) Baso % (Auto) Lymph # (Auto) Mcminn # (Auto) Eos # (Auto) Baso # (Auto) Absolute Neuts (auto) PT INR APTT Sodium Potassium Chloride Carbon Dioxide Anion Gap BUN Creatinine Est GFR ( Amer) Est GFR (Non-Af Amer) Random Glucose Calcium Total Bilirubin AST ALT Alkaline Phosphatase Total Protein Albumin Globulin Albumin/Globulin Ratio Blood Type A POSITIVE Antibody Screen Negative Crossmatch See Detail BBK History Checked Patient has bt Addendum Addendum: 10/28/18 16:59 MICU Attending addendum Patient seen and examined with housestaff agree with resident note above with the following add/exceptions: 73F with hx of GI bleed colostomy s/p reversal , Breast CA (Remission), Valvular Heart Disease, Diverticulosis and Diverticulitis, Pancreatic Cyst comes to ED with rectal bleeding. In the ED hemodynamically stable however while awaiting admission HB dropped 3grams over 4 hours. Patient was seen by GI and Surgical team in the ED bleeding scan ordered and next step will be based on results of scan f/u surg and gi recs for now tranfuse 2 units PRBC given presence of bleeding she is not on anticoag at home coags normal check CBC q6 hours npo ppi scds for dvt ppx rest of care as above Vincent Travis MD MICU Attending
--- NOTE | 2018-10-28 16:55 | NM ---
Date of service: 10/28/2018 PROCEDURE: Nuclear medicine gastrointestinal bleeding scan. HISTORY: lower GI Bleed COMPARISON: None available. TECHNIQUE: 4ccof patient blood was withdrawn and mixed with 20.1mCi of technetium ultra tagged. Images of the abdomen and pelvis were obtained in the anterior and posterior projection at 1 min intervals over a period of 45 min. FINDINGS: No abnormal extravasation of tracer was observed throughout the exam to indicate active bleeding within or outside the gastrointestinal tract. Physiologic activity was seen in the heart, liver, spleen and blood vessels. IMPRESSION: No evidence of active gastrointestinal bleeding.
--- NOTE | 2018-10-28 17:50 | CP.PCM.CON ---
<Angel Alfaro - Last Filed: 10/28/18 18:11> History of Present Illness - History of Present Illness History of Present Illness: PGY GI Initial Consult Paola Morgan is a 73M w/ hx of HLD, GI bleed, Breast CA (Remission), Valvular Heart Disease, Diverticulosis, Diverticulitis, Pancreatic Cyst who presents to the ER with risk bright blood per rectum. Pt states that he onset was earlier this morning. Pt noted having x5 BM since onset and additional BM in the ER. Pt also c/o of lower quadrant discomfort. Denies nay nausea, vomiting or hematemsis. Pt previously had a Hemicolectomy w/ colostomy and reversal for similar diverticular bleed in 2017. Pt initial hgb was 12 upon presentation, a repeat hgb was ~9. PMHx: HLD, GI bleed, Breast CA (Remission), Valvular Heart Disease, Diverticulosis, Diverticulitis, Pancreatic Cyst PSHx: Hemicolectomy w/ colostomy and reversal, B/L mastectomy, SocialHx: Former Smoker for a couple years, Quit 50 years ago. Denies Alcohol or illicit drug use FamHx: Angina (Mother) ROS: 12 point ROS conducted, neg other than above Past Patient History - Infectious Disease Hx of Infectious Diseases: None - Tetanus Immunizations Tetanus Immunization: Unknown - Past Medical History & Family History Past Medical History?: Yes - Past Social History Smoking Status: Never Smoked - CARDIAC Hx Hypertension: Yes Other/Comment: "leaky valve" - PULMONARY Hx Respiratory Disorders: No Hx Bronchitis: Yes - NEUROLOGICAL Hx Neurological Disorder: No - HEENT Hx HEENT Problems: Yes (eyeglasses for reading) - RENAL Hx Chronic Kidney Disease: No - ENDOCRINE/METABOLIC Hx Endocrine Disorders: No - HEMATOLOGICAL/ONCOLOGICAL Hx Blood Disorders: Yes (blood transfusions) Hx Anemia: Yes Hx Cancer: Yes (BREAST) Hx Chemotherapy: Yes - INTEGUMENTARY Hx Dermatological Problems: No - MUSCULOSKELETAL/RHEUMATOLOGICAL Hx Musculoskeletal Disorders: Yes Hx Falls: Yes - GASTROINTESTINAL Hx Gastrointestinal Disorders: Yes (hiatal hernia) Hx Colostomy: Yes Hx Diverticulitis: Yes (2011) Hx Gastroesophageal Reflux: Yes Other/Comment: gi bleed , pancreatic cyst - GENITOURINARY/GYNECOLOGICAL Hx Genitourinary Disorders: Yes - PSYCHIATRIC Hx Anxiety: Yes Hx Emotional Abuse: No Hx Physical Abuse: No Hx Substance Use: No - SURGICAL HISTORY Hx Mastectomy: Yes (cirilo 2004) Other/Comment: 11/2016 exp lap with colectomy/colostomy, 07/07/17 exp lap c olostomy closure and lower anter bowel resection - ANESTHESIA Hx Anesthesia: Yes Hx Anesthesia Reactions: No Hx Malignant Hyperthermia: No Meds Allergies/Adverse Reactions: Allergies Allergy/AdvReac Type Severity Reaction Status Date / Time No Known Allergies Allergy Verified 10/19/17 23:48 - Medications Medications: Current Medications Alprazolam (Xanax) 0.25 mg PO HS [facility]; Protocol Stop: 11/04/18 22:01 Sodium Chloride (Sodium Chloride 0.9%) 1,000 mls @ 150 mls/hr IV .Q6H40M [facility] Last Admin: 10/28/18 08:28 Dose: 150 mls/hr Breo Ellipta 100-25 ([facility] (Home Med)) 1 inhaler INH DAILY [facility] Pantoprazole Sodium (Protonix Inj) 40 mg IVP Q12 [facility] Last Admin: 10/28/18 12:36 Dose: 40 mg Physical Exam - Constitutional Appears: No Acute Distress - Head Exam Head Exam: ATRAUMATIC, NORMOCEPHALIC - Eye Exam Eye Exam: Normal appearance - ENT Exam ENT Exam: Mucous Membranes Moist, Normal Exam - Neck Exam Neck exam: Positive for: Normal Inspection - Respiratory Exam Respiratory Exam: Clear to Auscultation Bilateral, NORMAL BREATHING PATTERN. absent: Rales, Rhonchi, Wheezes, Respiratory Distress - Cardiovascular Exam Cardiovascular Exam: REGULAR RHYTHM, +S1, +S2 - GI/Abdominal Exam GI & Abdominal Exam: Normal Bowel Sounds, Soft. absent: Diminished Bowel Sounds, Distended, Firm, Guarding, Hernia, Organomegaly, Rebound, Rigid, Tenderness - Rectal Exam Rectal Exam: Bloody Stool Additional comments: blood clots - Extremities Exam Extremities exam: Negative for: joint swelling, pedal edema - Neurological Exam Neurological exam: Alert, Oriented x3 - Psychiatric Exam Psychiatric exam: Normal Affect, Normal Mood - Skin Skin Exam: Dry, Intact, Normal Color, Warm Results - Vital Signs Recent Vital Signs: Last Vital Signs Temp 98.0 F 10/28/18 17:01 Pulse 78 10/28/18 17:01 Resp 18 10/28/18 17:01 BP 98/63 L 10/28/18 17:01 Pulse Ox 97 10/28/18 16:28 - Labs Result Diagrams: 10/28/18 12:50 10/28/18 08:23 Labs: Laboratory Results - last 24 hr 10/28/18 10/28/18 10/28/18 08:23 08:23 08:23 WBC 5.9 RBC 4.53 Hgb 12.5 Hct 39.5 MCV 87.2 D MCH 27.6 MCHC 31.6 RDW 15.0 H Plt Count 230 MPV 11.1 H Neut % (Auto) 63.5 Lymph % (Auto) 26.5 Sherman % (Auto) 7.3 H Eos % (Auto) 2.2 Baso % (Auto) 0.5 Lymph # (Auto) 1.6 Sherman # (Auto) 0.4 Eos # (Auto) 0.1 Baso # (Auto) 0.03 Absolute Neuts (auto) 3.76 PT 11.7 INR 1.04 APTT 30.7 Sodium 142 Potassium 3.7 Chloride 105 Carbon Dioxide 27 Anion Gap 14 BUN 23 H Creatinine 0.9 Est GFR ( Amer) > 60 Est GFR (Non-Af Amer) > 60 Random Glucose 114 H Calcium 9.8 Total Bilirubin 0.4 AST 25 ALT 12 Alkaline Phosphatase 83 Total Protein 8.5 H Albumin 4.4 Globulin 4.1 Albumin/Globulin Ratio 1.1 Blood Type Antibody Screen Crossmatch BBK History Checked 10/28/18 10/28/18 08:23 12:50 WBC 7.3 D RBC 3.55 Hgb 9.7 L D Hct 30.9 L MCV 87.0 MCH 27.3 MCHC 31.4 RDW 14.9 H Plt Count 176 MPV 10.9 Neut % (Auto) Lymph % (Auto) Sherman % (Auto) Eos % (Auto) Baso % (Auto) Lymph # (Auto) Sherman # (Auto) Eos # (Auto) Baso # (Auto) Absolute Neuts (auto) PT INR APTT Sodium Potassium Chloride Carbon Dioxide Anion Gap BUN Creatinine Est GFR ( Amer) Est GFR (Non-Af Amer) Random Glucose Calcium Total Bilirubin AST ALT Alkaline Phosphatase Total Protein Albumin Globulin Albumin/Globulin Ratio Blood Type A POSITIVE Antibody Screen Negative Crossmatch See Detail BBK History Checked Patient has bt Assessment & Plan - Assessment and Plan (Free Text) Assessment: Paola Morgan is a 73M w/ hx of HLD, GI bleed, Breast CA (Remission), Valvular Heart Disease, Diverticulosis, Diverticulitis, Pancreatic Cyst who presents to the ER with risk bright blood per rectum Hematochezia, etiology likely diverticular; DDx: ulcer, AVM, mass, malignancy Anemia 2/2 above Hx of diverticulosis Hx of diverticular bleed hx of bartolome cholectomy Pancreatic cyst Plan: -continue to monitor h/h q 6 -maintain x2 IV lines -Continue IV fluids -Agree with ICU eval -Continue Protonix 40mg IV BID -recommend bleeding scan -surgery on board -Keep Hgb >8, transfuse if needed -keep NPO for now D/W Dr. Kam <Kain Kam V - Last Filed: 10/28/18 23:31> Meds - Medications Medications: Current Medications Alprazolam (Xanax) 0.25 mg PO HS [facility]; Protocol Stop: 11/04/18 22:01 Last Admin: 10/28/18 22:55 Dose: 0.25 mg Sodium Chloride (Sodium Chloride 0.9%) 1,000 mls @ 150 mls/hr IV .Q6H40M [facility] Last Admin: 10/28/18 08:28 Dose: 150 mls/hr Breo Ellipta 100-25 ([facility] (Home Med)) 1 inhaler INH DAILY [facility] Pantoprazole Sodium (Protonix Inj) 40 mg IVP Q12 [facility] Last Admin: 10/28/18 22:05 Dose: 40 mg Results - Vital Signs Recent Vital Signs: Last Vital Signs Temp 99.0 F 10/28/18 19:38 Pulse 70 10/28/18 19:38 Resp 17 10/28/18 19:38 BP 123/63 10/28/18 19:38 Pulse Ox 98 10/28/18 18:25 - Labs Result Diagrams: 10/28/18 19:50 10/28/18 08:23 Labs: Laboratory Results - last 24 hr 10/28/18 10/28/18 10/28/18 08:23 08:23 08:23 WBC 5.9 RBC 4.53 Hgb 12.5 Hct 39.5 MCV 87.2 D MCH 27.6 MCHC 31.6 RDW 15.0 H Plt Count 230 MPV 11.1 H Neut % (Auto) 63.5 Lymph % (Auto) 26.5 Sherman % (Auto) 7.3 H Eos % (Auto) 2.2 Baso % (Auto) 0.5 Lymph # (Auto) 1.6 Sherman # (Auto) 0.4 Eos # (Auto) 0.1 Baso # (Auto) 0.03 Absolute Neuts (auto) 3.76 PT 11.7 INR 1.04 APTT 30.7 pO2 VBG pH VBG pCO2 VBG HCO3 VBG Total CO2 VBG O2 Sat (Calc) VBG Base Excess VBG Potassium Glucose Lactate FiO2 Sodium 142 Potassium 3.7 Chloride 105 Carbon Dioxide 27 Anion Gap 14 BUN 23 H Creatinine 0.9 Est GFR ( Amer) > 60 Est GFR (Non-Af Amer) > 60 Random Glucose 114 H Calcium 9.8 Total Bilirubin 0.4 AST 25 ALT 12 Alkaline Phosphatase 83 Troponin I Total Protein 8.5 H Albumin 4.4 Globulin 4.1 Albumin/Globulin Ratio 1.1 Venous Blood Potassium Blood Type Antibody Screen Crossmatch BBK History Checked 10/28/18 10/28/18 10/28/18 08:23 12:50 18:20 WBC 7.3 D RBC 3.55 Hgb 9.7 L D Hct 30.9 L MCV 87.0 MCH 27.3 MCHC 31.4 RDW 14.9 H Plt Count 176 MPV 10.9 Neut % (Auto) Lymph % (Auto) Sherman % (Auto) Eos % (Auto) Baso % (Auto) Lymph # (Auto) Sherman # (Auto) Eos # (Auto) Baso # (Auto) Absolute Neuts (auto) PT INR APTT pO2 30 VBG pH 7.40 VBG pCO2 39.0 L VBG HCO3 24.2 VBG Total CO2 25.4 VBG O2 Sat (Calc) 63.7 VBG Base Excess -0.5 L VBG Potassium 3.7 Glucose 85 Lactate 1.5 FiO2 21.0 Sodium 143.0 Potassium Chloride 115.0 H Carbon Dioxide Anion Gap BUN Creatinine Est GFR ( Amer) Est GFR (Non-Af Amer) Random Glucose Calcium Total Bilirubin AST ALT Alkaline Phosphatase Troponin I Total Protein Albumin Globulin Albumin/Globulin Ratio Venous Blood Potassium 3.7 Blood Type A POSITIVE Antibody Screen Negative Crossmatch See Detail BBK History Checked Patient has bt 02/27/19 02/27/19 18:36 19:50 WBC 6.9 RBC 3.48 L Hgb 9.8 L Hct 30.4 L MCV 87.4 MCH 28.2 MCHC 32.2 RDW 14.9 H Plt Count 157 MPV 10.8 Neut % (Auto) Lymph % (Auto) Sherman % (Auto) Eos % (Auto) Baso % (Auto) Lymph # (Auto) Sherman # (Auto) Eos # (Auto) Baso # (Auto) Absolute Neuts (auto) PT INR APTT pO2 VBG pH VBG pCO2 VBG HCO3 VBG Total CO2 VBG O2 Sat (Calc) VBG Base Excess VBG Potassium Glucose Lactate FiO2 Sodium Potassium Chloride Carbon Dioxide Anion Gap BUN Creatinine Est GFR ( Amer) Est GFR (Non-Af Amer) Random Glucose Calcium Total Bilirubin AST ALT Alkaline Phosphatase Troponin I < 0.01 Total Protein Albumin Globulin Albumin/Globulin Ratio Venous Blood Potassium Blood Type Antibody Screen Crossmatch BBK History Checked Attending/Attestation - Attestation I have personally seen and examined this patient.: Yes I have fully participated in the care of the patient.: Yes I have reviewed all pertinent clinical information: Yes Notes (Text): This is an addendum to GI progress report dictated by the GI Fellow. The patient was seen and examined earlier. Medical records, lab studies, imagings were reviewed. Last 24 hours events reviewed. Agreed with the above treatment plan as outlined in GI Fellow 's notes with the addition of the following Active GI bleeding probably lower GI History of status post elective left hemicolectomy for diverticular bleed in 2017 History of mucinous cyst in the pancreas Patient's hemoglobin dropped from 12-9mil Being transfused a second unit Follow-up hemoglobin hematocrit Patient had a colonoscopy priorTo the reversal of colostomy Diverticulosis seen throughout the colon 10/28/18 23:22
[2018-10-28 18:31] LABS: VENOUS BLOOD GAS BASE EXCESS -0.5 mmol/L (0.0-2.0); VENOUS BLOOD GAS PO2 30 mm/Hg (30-55)
[2018-10-28 20:00] LABS: HEMOGLOBIN 9.8 g/dL (12.0-16.0); MEAN CELL VOLUME 87.4 fl (80.0-105.0); MEAN CORPUSCULAR HEMOGLOBIN 28.2 pg (25.0-35.0); MEAN CORPUSCULAR HGB CONC 32.2 g/dl (31.0-37.0); MEAN PLATELET VOLUME 10.8 fl (7.0-11.0); RBC 3.48 10^6/uL (3.5-6.1); RED CELL DISTRIBUTION WIDTH 14.9 % (11.5-14.5); WHITE BLOOD COUNT 6.9 10^3/uL (4.5-11.0)
[2018-10-28] MEDS ORDERED: Sodium Chloride 0.9% 1,000 ML IV STA (22:07)
--- NOTE | 2018-10-28 22:07 | CP.PCM.PCO ---
<Varinder Santana - Last Filed: 10/28/18 22:00> Addendum Addendum: 10/28/18 22:00 Progress: Patient was seen and evaluated at bedside tonight. Significant amount of large blood clots passed per rectum - bright red in color. Patient hemodynamically stable, however, she is passing a large amount of blood which could lead to hemodynamic instability. Patient s/p 2 units PBRC. Hgb stable at 9.8 from 9.7 at 1250. Patient to be transfused again if Hgb < 8. Repeat H/H. 1 L bolus administered. Contacted GI fellow, Dr. Angel Alfaro, who recommended to continue to monitor, continue protonix IVP, and to transfuse again if Hgb <8. Photo Offset Printer was notified of this change in status and is aware and will evaluate Patient as well. Please see Patient's chart for details. Varinder Santana PGY1 <Catherine Amador - Last Filed: 10/31/18 06:27> Attending/Attestation - Attestation I have personally seen and examined this patient.: Yes I have fully participated in the care of the patient.: Yes I have reviewed all pertinent clinical information: Yes
[2018-10-28 23:07] LABS: BASO # 0.03 K/mm3 (0.0-2.0); BASO % 0.2 % (0.0-3.0); EOS # 0.1 (0.0-0.7); EOS % 0.5 % (1.5-5.0); HEMOGLOBIN 9.7 g/dL (12.0-16.0); LYMPH # 1.5 (1.2-3.4); LYMPH % 11.8 % (22.0-35.0); MEAN CELL VOLUME 87.7 fl (80.0-105.0); MEAN CORPUSCULAR HEMOGLOBIN 28.4 pg (25.0-35.0); MEAN CORPUSCULAR HGB CONC 32.4 g/dl (31.0-37.0); MEAN PLATELET VOLUME 10.8 fl (7.0-11.0); MONO # 0.6 (0.1-0.6); MONO % 4.7 % (1.0-6.0); RBC 3.41 10^6/uL (3.5-6.1); RED CELL DISTRIBUTION WIDTH 14.6 % (11.5-14.5); WHITE BLOOD COUNT 12.8 10^3/uL (4.5-11.0)
[2018-10-29] MEDS ORDERED: HYDROmorphone 0.5 mg/0.5 ml ISec IVP STA (01:21)
[2018-10-29] MEDS ORDERED: Sodium Chloride 0.9% 1,000 ML IV SCH (01:29)
--- NOTE | 2018-10-29 01:44 | PCM.PROC ---
Procedures Attestation:: I certify that I have explained the specified Operation(s) or Procedure(s), risks, benefits and reasonable alternatives to the Patient and/or other person responsible. The opportunity was given to ask questions and all questions answered - Central Line Placement Right Internal Jugular Triple Lumen Catheter Aseptic technique was employed throughout the procedure: Hand Hygiene done prior to procedure, Full sterile barriers (mask, hair cover, sterile gown, sterile gloves), Full body sterile drape, Chloraprep Antiseptic: 30 second prep for IJ or SC sites, Chloraprep Antiseptic: 2 minute prep for Femoral CVP Time Out Performed: Yes Pt. Placed on Pulse Ox Monitor: Yes Central Line Prep: Chlorhexidine-Alcohol Combination Local Anesthesia Used: Lidocaine 1% Amount of Anesthesia Used (mls): 5 Ultrasound Used for Placement: Yes Post Procedure X-Ray: Yes Patient Tolerated Procedure: Other (Unable to advance guidewire 2/2 resistance) Right Subclavian Triple Lumen Catheter Aseptic technique was employed throughout the procedure: Hand Hygiene done prior to procedure, Full sterile barriers (mask, hair cover, sterile gown, sterile gloves), Full body sterile drape, Chloraprep Antiseptic: 30 second prep for IJ or SC sites CVP Time Out Performed: Yes Pt. Placed on Pulse Ox Monitor: Yes Central Line Prep: Chlorhexidine-Alcohol Combination Local Anesthesia Used: Lidocaine 1% Amount of Anesthesia Used (mls): 5 Ultrasound Used for Placement: No Post Procedure X-Ray: Yes Patient Tolerated Procedure: Other (Unable to advance guidewire 2/2 resistance)
[2018-10-29 04:17] LABS: BASO # 0.02 K/mm3 (0.0-2.0); BASO % 0.3 % (0.0-3.0); EOS % 0.5 % (1.5-5.0); HEMOGLOBIN 9.5 g/dL (12.0-16.0); LYMPH # 1.1 (1.2-3.4); LYMPH % 13.7 % (22.0-35.0); MEAN CELL VOLUME 85.9 fl (80.0-105.0); MEAN CORPUSCULAR HEMOGLOBIN 28.5 pg (25.0-35.0); MEAN CORPUSCULAR HGB CONC 33.2 g/dl (31.0-37.0); MEAN PLATELET VOLUME 10.5 fl (7.0-11.0); MONO # 0.4 (0.1-0.6); MONO % 4.6 % (1.0-6.0); RBC 3.33 10^6/uL (3.5-6.1); RED CELL DISTRIBUTION WIDTH 14.5 % (11.5-14.5)
[2018-10-29 05:39] LABS: ALB/GLOB RATIO 1.1 (1.1-1.8); ALT/SGPT 14 U/L (7-56); AST/SGOT 17 U/L (14-36); BLOOD UREA NITROGEN 14 mg/dL (7-21); CALCIUM 7.6 mg/dL (8.4-10.5); GFR NON-AFRICAN AMERICAN > 60
--- NOTE | 2018-10-29 08:25 | CP.PCM.PN ---
Subjective - Date & Time of Evaluation Date of Evaluation: 10/29/18 Time of Evaluation: 08:21 - Subjective Subjective: Surgery Progress Note for Dr. Osuna S/E at bedside. Reports continued bleeding and abdominal pain overnight. Failed attempt to place TLC with surgical corsetier overnight. NGT was inserted with no blood return pending. Repleting another unit of blood with platelets pending. Objective - Vital Signs/Intake and Output Vital Signs (last 24 hours): Temp Pulse Resp BP Pulse Ox 99.0 F 90 17 113/61 100 10/28/18 19:38 10/29/18 05:20 10/29/18 05:20 10/29/18 05:00 10/29/18 05:20 Intake and Output: 10/29/18 10/29/18 06:59 18:59 Intake Total 4595 Output Total 1230 Balance 3365 - Medications Medications: Current Medications Alprazolam (Xanax) 0.25 mg PO HS CAREY; Protocol Stop: 11/04/18 22:01 Last Admin: 10/28/18 22:55 Dose: 0.25 mg Sodium Chloride (Sodium Chloride 0.9%) 1,000 mls @ 125 mls/hr IV .Q8H CAREY Last Admin: 10/29/18 01:00 Dose: 125 mls/hr Breo Ellipta 100-25 (Mcg Inh (Home Med)) 1 inhaler INH DAILY [facility] Pantoprazole Sodium (Protonix Inj) 40 mg IVP Q12 CAREY Last Admin: 10/28/18 22:05 Dose: 40 mg - Labs Labs: 10/29/18 04:05 10/29/18 04:05 PT 11.7 SECONDS (9.4-12.5) 10/28/18 08:23 INR 1.04 10/28/18 08:23 APTT 30.7 Seconds (26.9-38.3) 10/28/18 08:23 - Constitutional Appears: Non-toxic, No Acute Distress - Head Exam Head Exam: NORMAL INSPECTION - Eye Exam Eye Exam: EOMI. absent: Scleral icterus - Respiratory Exam Respiratory Exam: NORMAL BREATHING PATTERN - Cardiovascular Exam Cardiovascular Exam: absent: Tachycardia - GI/Abdominal Exam GI & Abdominal Exam: Soft, Tenderness - Neurological Exam Neurological Exam: Alert, Awake - Psychiatric Exam Psychiatric exam: Normal Mood - Skin Skin Exam: Intact, Normal Color Assessment and Plan - Assessment and Plan (Free Text) Assessment: 73 yo female w/ PMH HLD, GI bleed, Breast CA (Remission), Valvular Heart Disease , Diverticulosis, Diverticulitis, Pancreatic Cyst admitted for active rectal bleeding. Plan: Hgb trending down even with blood products transfused (4 units), will replete 1 more unit; continue to transfuse as needed CBC q4h; hemodynamically stable CT abdomen shows no active bleed; Bleeding scan shows no source of active bleed F/U GI recs IVF @ 125 NS; Continue medical management Will continue to follow Further recs as per Dr. Osuna PGY-1 Thomas Torres
[2018-10-29 08:32] LABS: INR 1.12; PARTIAL THROMBOPLASTIN TIME 27.2 Seconds (26.9-38.3); PROTHROMBIN TIME 12.7 SECONDS (9.4-12.5)
--- NOTE | 2018-10-29 08:51 | RAD ---
Date of service: 10/29/2018 HISTORY: s/p NGT, attempted R IJ/Subclavian central line COMPARISON: Chest radiographs 04/27/2018. FINDINGS: LUNGS: No active pulmonary disease. PLEURA: No significant pleural effusion identified, no pneumothorax apparent. CARDIOVASCULAR: No aortic atherosclerotic calcification present. Mild cardiomegaly reiterated. No pulmonary vascular congestion. OSSEOUS STRUCTURES: No significant abnormalities. VISUALIZED UPPER ABDOMEN: Nasogastric tube terminates at left upper quadrant abdomen in the interval. OTHER FINDINGS: None. IMPRESSION: Interval nasogastric tube deployment as discussed above with stable cardiomegaly. No pulmonary vascular congestion or infiltrate bilaterally.
--- NOTE | 2018-10-29 10:04 | CP.CCUPN ---
<Jaylan Wagner - Last Filed: 10/29/18 11:38> CCU Subjective - Physician Review Subjective (Free Text): ICU Progress Note for Dr. Guerrero Patient seen and examined at bedside. No acute overnight events. Patient was transfused 2 more units overnight with inappropriate response. Patient states she passed blood clots overnight, but none this AM. Patient denies dizziness, fatigue, CP, SOB, n/v/d, abdominal pain, fever, chills, STEPHENSON, and dysuria. CCU Objective - Vital Signs / Intake & Output Vital Signs (Last 4 hours): Vital Signs Temp Pulse Resp BP 10/29/18 09:14 98.0 F 81 20 92/75 L 10/29/18 08:54 97.8 F 81 22 91/41 L Intake and Output (Last 8hrs): Intake & Output 10/28/18 10/29/18 10/29/18 22:59 06:59 14:59 Intake Total 325 4270 0 Output Total 1230 Balance 325 3040 0 Weight 82.1 kg Intake: IV 2500 Right Forearm 2500 Blood Product 325 1770 0 Red Blood Cells Cpd As1 325 Lr Unit [id number] Red Blood Cells Cpd As1 0 Lr Unit [id number] Output: Urine 370 Urethral (Luevano) 370 Urine/Stool Mix 800 Other 60 Other: # Bowel Movements 2 - Physical Exam Head: Positive for: Atraumatic, Normocephalic Extroacular Muscles: Positive for: EOMI Mouth: Positive for: Moist Mucous Membranes Pharnyx: Positive for: Normal Neck: Positive for: Normal Range of Motion Respiratory/Chest: Positive for: Clear to Auscultation. Negative for: Wheezes, Rales, Rhonchi Cardiovascular: Positive for: Regular Rate and Rhythm, Normal S1, S2. Negative for: Murmurs, Rub, Gallop Abdomen: Positive for: Normal Bowel Sounds. Negative for: Tenderness, Distention, Peritoneal Signs, Rebound, Guarding, Hernias Upper Extremity: Positive for: Normal Inspection. Negative for: Cyanosis, Edema Lower Extremity: Positive for: Normal Inspection. Negative for: Edema Neurological: Positive for: GCS=15, CN II-XII Intact, Speech Normal Skin: Positive for: Warm, Dry, Normal Color. Negative for: Rashes Psychiatric: Positive for: Alert, Oriented x 3 - Medications Active Medications: Active Medications Generic Name Dose Route Start Last Admin Trade Name Freq PRN Reason Stop Dose Admin Acetaminophen 650 mg 10/29/18 08:34 Tylenol 325mg Tab PO Q6H PRN Pain, Mild (1-3) Alprazolam 0.25 mg 10/28/18 22:00 10/28/18 22:55 Xanax PO 11/04/18 22:01 0.25 mg HS CAREY Administration Protocol Sodium Chloride 1,000 mls @ 125 mls/hr 10/29/18 01:29 10/29/18 01:00 Sodium Chloride 0.9% IV 125 mls/hr .Q8H CAREY Administration Breo Ellipta 100-25 1 inhaler 10/29/18 10:00 Mcg Inh (Home Med) INH DAILY CAREY Pantoprazole Sodium 40 mg 10/28/18 12:30 10/28/18 22:05 Protonix Inj IVP 40 mg Q12 CAREY Administration - Patient Studies Lab Studies: Lab Studies 10/29/18 10/29/18 10/29/18 Range/Units 08:15 04:05 04:05 WBC 8.0 D (4.5-11.0) 10^3/uL RBC 3.33 L (3.5-6.1) 10^6/uL Hgb 9.5 L (12.0-16.0) g/dL Hct 28.6 L (36.0-48.0) % MCV 85.9 (80.0-105.0) fl MCH 28.5 (25.0-35.0) pg MCHC 33.2 (31.0-37.0) g/dl RDW 14.5 (11.5-14.5) % Plt Count 113 L (120.0-450.0) 10^3/uL MPV 10.5 (7.0-11.0) fl Neut % (Auto) 80.9 H (50.0-68.0) % Lymph % (Auto) 13.7 L (22.0-35.0) % Beadle % (Auto) 4.6 (1.0-6.0) % Eos % (Auto) 0.5 L (1.5-5.0) % Baso % (Auto) 0.3 (0.0-3.0) % Lymph # (Auto) 1.1 L (1.2-3.4) Beadle # (Auto) 0.4 (0.1-0.6) Eos # (Auto) 0.0 (0.0-0.7) Baso # (Auto) 0.02 (0.0-2.0) K/mm3 Absolute Neuts (auto) 6.44 (1.4-6.5) PT 12.7 H (9.4-12.5) SECONDS INR 1.12 APTT 27.2 (26.9-38.3) Seconds pO2 (30-55) mm/Hg VBG pH (7.32-7.43) VBG pCO2 (40-60) VBG HCO3 (21-28) mmol/l VBG Total CO2 (22-28) mmol.L VBG O2 Sat (Calc) (40-65) % VBG Base Excess (0.0-2.0) mmol/L VBG Potassium (3.6-5.2) mmol/L Sodium 142 (132-148) mmol/L Chloride 114 H (98-107) mmol/L Glucose (65-105) mg/dl Lactate (0.7-2.1) mmol/L FiO2 % Potassium 3.8 (3.6-5.0) mmol/L Carbon Dioxide 24 (21-33) mmol/L Anion Gap 8 L (10-20) BUN 14 (7-21) mg/dL Creatinine 0.7 (0.7-1.2) mg/dl Est GFR ( Amer) > 60 Est GFR (Non-Af Amer) > 60 Random Glucose 112 H (70-110) mg/dL Calcium 7.6 L (8.4-10.5) mg/dL Phosphorus 3.3 (2.5-4.5) mg/dL Magnesium 1.9 (1.7-2.2) mg/dL Total Bilirubin 0.5 (0.2-1.3) mg/dL AST 17 (14-36) U/L ALT 14 (7-56) U/L Alkaline Phosphatase 51 (38-126) U/L Troponin I ng/mL Total Protein 5.8 (5.8-8.3) g/dL Albumin 3.0 (3.0-4.8) g/dL Globulin 2.8 gm/dL Albumin/Globulin Ratio 1.1 (1.1-1.8) Venous Blood Potassium (3.6-5.2) mmol/L Blood Type Antibody Screen Crossmatch BBK History Checked 10/28/18 10/28/18 10/28/18 Range/Units 22:58 19:50 18:36 WBC 12.8 H D 6.9 (4.5-11.0) 10^3/uL RBC 3.41 L 3.48 L (3.5-6.1) 10^6/uL Hgb 9.7 L 9.8 L (12.0-16.0) g/dL Hct 29.9 L 30.4 L (36.0-48.0) % MCV 87.7 87.4 (80.0-105.0) fl MCH 28.4 28.2 (25.0-35.0) pg MCHC 32.4 32.2 (31.0-37.0) g/dl RDW 14.6 H 14.9 H (11.5-14.5) % Plt Count 143 157 (120.0-450.0) 10^3/uL MPV 10.8 10.8 (7.0-11.0) fl Neut % (Auto) 82.8 H (50.0-68.0) % Lymph % (Auto) 11.8 L (22.0-35.0) % Beadle % (Auto) 4.7 (1.0-6.0) % Eos % (Auto) 0.5 L (1.5-5.0) % Baso % (Auto) 0.2 (0.0-3.0) % Lymph # (Auto) 1.5 (1.2-3.4) Beadle # (Auto) 0.6 (0.1-0.6) Eos # (Auto) 0.1 (0.0-0.7) Baso # (Auto) 0.03 (0.0-2.0) K/mm3 Absolute Neuts (auto) 10.63 H (1.4-6.5) PT (9.4-12.5) SECONDS INR APTT (26.9-38.3) Seconds pO2 (30-55) mm/Hg VBG pH (7.32-7.43) VBG pCO2 (40-60) VBG HCO3 (21-28) mmol/l VBG Total CO2 (22-28) mmol.L VBG O2 Sat (Calc) (40-65) % VBG Base Excess (0.0-2.0) mmol/L VBG Potassium (3.6-5.2) mmol/L Sodium (132-148) mmol/L Chloride (98-107) mmol/L Glucose (65-105) mg/dl Lactate (0.7-2.1) mmol/L FiO2 % Potassium (3.6-5.0) mmol/L Carbon Dioxide (21-33) mmol/L Anion Gap (10-20) BUN (7-21) mg/dL Creatinine (0.7-1.2) mg/dl Est GFR ( Amer) Est GFR (Non-Af Amer) Random Glucose (70-110) mg/dL Calcium (8.4-10.5) mg/dL Phosphorus (2.5-4.5) mg/dL Magnesium (1.7-2.2) mg/dL Total Bilirubin (0.2-1.3) mg/dL AST (14-36) U/L ALT (7-56) U/L Alkaline Phosphatase (38-126) U/L Troponin I < 0.01 ng/mL Total Protein (5.8-8.3) g/dL Albumin (3.0-4.8) g/dL Globulin gm/dL Albumin/Globulin Ratio (1.1-1.8) Venous Blood Potassium (3.6-5.2) mmol/L Blood Type Antibody Screen Crossmatch BBK History Checked 10/28/18 10/28/18 10/28/18 Range/Units 18:20 12:50 08:23 WBC 7.3 D (4.5-11.0) 10^3/uL RBC 3.55 (3.5-6.1) 10^6/uL Hgb 9.7 L D (12.0-16.0) g/dL Hct 30.9 L (36.0-48.0) % MCV 87.0 (80.0-105.0) fl MCH 27.3 (25.0-35.0) pg MCHC 31.4 (31.0-37.0) g/dl RDW 14.9 H (11.5-14.5) % Plt Count 176 (120.0-450.0) 10^3/uL MPV 10.9 (7.0-11.0) fl Neut % (Auto) (50.0-68.0) % Lymph % (Auto) (22.0-35.0) % Beadle % (Auto) (1.0-6.0) % Eos % (Auto) (1.5-5.0) % Baso % (Auto) (0.0-3.0) % Lymph # (Auto) (1.2-3.4) Beadle # (Auto) (0.1-0.6) Eos # (Auto) (0.0-0.7) Baso # (Auto) (0.0-2.0) K/mm3 Absolute Neuts (auto) (1.4-6.5) PT (9.4-12.5) SECONDS INR APTT (26.9-38.3) Seconds pO2 30 (30-55) mm/Hg VBG pH 7.40 (7.32-7.43) VBG pCO2 39.0 L (40-60) VBG HCO3 24.2 (21-28) mmol/l VBG Total CO2 25.4 (22-28) mmol.L VBG O2 Sat (Calc) 63.7 (40-65) % VBG Base Excess -0.5 L (0.0-2.0) mmol/L VBG Potassium 3.7 (3.6-5.2) mmol/L Sodium 143.0 (132-148) mmol/L Chloride 115.0 H (98-107) mmol/L Glucose 85 (65-105) mg/dl Lactate 1.5 (0.7-2.1) mmol/L FiO2 21.0 % Potassium (3.6-5.0) mmol/L Carbon Dioxide (21-33) mmol/L Anion Gap (10-20) BUN (7-21) mg/dL Creatinine (0.7-1.2) mg/dl Est GFR ( Amer) Est GFR (Non-Af Amer) Random Glucose (70-110) mg/dL Calcium (8.4-10.5) mg/dL Phosphorus (2.5-4.5) mg/dL Magnesium (1.7-2.2) mg/dL Total Bilirubin (0.2-1.3) mg/dL AST (14-36) U/L ALT (7-56) U/L Alkaline Phosphatase (38-126) U/L Troponin I ng/mL Total Protein (5.8-8.3) g/dL Albumin (3.0-4.8) g/dL Globulin gm/dL Albumin/Globulin Ratio (1.1-1.8) Venous Blood Potassium 3.7 (3.6-5.2) mmol/L Blood Type A POSITIVE Antibody Screen Negative Crossmatch See Detail BBK History Checked Patient has bt Laboratory Results - last 24 hr 10/28/18 10/28/18 10/28/18 08:23 12:50 18:20 WBC 7.3 D RBC 3.55 Hgb 9.7 L D Hct 30.9 L MCV 87.0 MCH 27.3 MCHC 31.4 RDW 14.9 H Plt Count 176 MPV 10.9 Neut % (Auto) Lymph % (Auto) Beadle % (Auto) Eos % (Auto) Baso % (Auto) Lymph # (Auto) Beadle # (Auto) Eos # (Auto) Baso # (Auto) Absolute Neuts (auto) PT INR APTT pO2 30 VBG pH 7.40 VBG pCO2 39.0 L VBG HCO3 24.2 VBG Total CO2 25.4 VBG O2 Sat (Calc) 63.7 VBG Base Excess -0.5 L VBG Potassium 3.7 Sodium 143.0 Chloride 115.0 H Glucose 85 Lactate 1.5 FiO2 21.0 Potassium Carbon Dioxide Anion Gap BUN Creatinine Est GFR ( Amer) Est GFR (Non-Af Amer) Random Glucose Calcium Phosphorus Magnesium Total Bilirubin AST ALT Alkaline Phosphatase Troponin I Total Protein Albumin Globulin Albumin/Globulin Ratio Venous Blood Potassium 3.7 Blood Type A POSITIVE Antibody Screen Negative Crossmatch See Detail BBK History Checked Patient has bt 10/28/18 10/28/18 10/28/18 18:36 19:50 22:58 WBC 6.9 12.8 H D RBC 3.48 L 3.41 L Hgb 9.8 L 9.7 L Hct 30.4 L 29.9 L MCV 87.4 87.7 MCH 28.2 28.4 MCHC 32.2 32.4 RDW 14.9 H 14.6 H Plt Count 157 143 MPV 10.8 10.8 Neut % (Auto) 82.8 H Lymph % (Auto) 11.8 L Beadle % (Auto) 4.7 Eos % (Auto) 0.5 L Baso % (Auto) 0.2 Lymph # (Auto) 1.5 Beadle # (Auto) 0.6 Eos # (Auto) 0.1 Baso # (Auto) 0.03 Absolute Neuts (auto) 10.63 H PT INR APTT pO2 VBG pH VBG pCO2 VBG HCO3 VBG Total CO2 VBG O2 Sat (Calc) VBG Base Excess VBG Potassium Sodium Chloride Glucose Lactate FiO2 Potassium Carbon Dioxide Anion Gap BUN Creatinine Est GFR ( Amer) Est GFR (Non-Af Amer) Random Glucose Calcium Phosphorus Magnesium Total Bilirubin AST ALT Alkaline Phosphatase Troponin I < 0.01 Total Protein Albumin Globulin Albumin/Globulin Ratio Venous Blood Potassium Blood Type Antibody Screen Crossmatch BBK History Checked 10/29/18 10/29/18 10/29/18 04:05 04:05 08:15 WBC 8.0 D RBC 3.33 L Hgb 9.5 L Hct 28.6 L MCV 85.9 MCH 28.5 MCHC 33.2 RDW 14.5 Plt Count 113 L MPV 10.5 Neut % (Auto) 80.9 H Lymph % (Auto) 13.7 L Beadle % (Auto) 4.6 Eos % (Auto) 0.5 L Baso % (Auto) 0.3 Lymph # (Auto) 1.1 L Beadle # (Auto) 0.4 Eos # (Auto) 0.0 Baso # (Auto) 0.02 Absolute Neuts (auto) 6.44 PT 12.7 H INR 1.12 APTT 27.2 pO2 VBG pH VBG pCO2 VBG HCO3 VBG Total CO2 VBG O2 Sat (Calc) VBG Base Excess VBG Potassium Sodium 142 Chloride 114 H Glucose Lactate FiO2 Potassium 3.8 Carbon Dioxide 24 Anion Gap 8 L BUN 14 Creatinine 0.7 Est GFR ( Amer) > 60 Est GFR (Non-Af Amer) > 60 Random Glucose 112 H Calcium 7.6 L Phosphorus 3.3 Magnesium 1.9 Total Bilirubin 0.5 AST 17 ALT 14 Alkaline Phosphatase 51 Troponin I Total Protein 5.8 Albumin 3.0 Globulin 2.8 Albumin/Globulin Ratio 1.1 Venous Blood Potassium Blood Type Antibody Screen Crossmatch BBK History Checked Radiology Impressions: Radiology Impressions Abdomen/Pelvis CT 10/28/18 08:16 IMPRESSION: Small ventral hernia containing a segment of bowel. There is no obstruction. There are no acute intra abdominal findings. GI Bleed Scan Nuclear Medicine 10/28/18 13:10 IMPRESSION: No evidence of active gastrointestinal bleeding. Chest X-Ray 10/29/18 01:41 IMPRESSION: Interval nasogastric tube deployment as discussed above with stable cardiomegaly. No pulmonary vascular congestion or infiltrate bilaterally. Critical Care Progress Note - Nutrition Nutrition: Nutrition Category Date Time Status NPO Diet [DIET] Diets 10/28/18 Breakfast Ordered Assessment/Plan - Assessment and Plan (Free Text) Assessment: 73 yo F with PMH of HLD, GI bleed, Breast CA (Remission), Valvular Heart Disease, Diverticulosis, Diverticulitis, Pancreatic Cyst [place] [facility] [place]. Patient will be admitted to the ICU for hemorrhagic shock 2/2 lower GI bleed. Plan: Neuro: - AOx3 - Maintain normothermia CV: - Hold beta blockers and anti-hypertensives - Maintain MAP > 65 - Cont to monitor vitals Pulm: - Maintain O2 > 92% GI: - Abd/Pelv CT showed small ventral hernia without signs of obstruction - Bleeding scan negative - NGT lavage with clear return - Cont NS at 125 cc/hr - Protonix IV BID - NPO - GI consulted - Surgery consulted Renal: - Maintain euvolemia - Monitor electrolytes and replete as needed Heme: - Inappropriate Hgb response despite transfusions - s/p 3 unit pRBC, 2 units FFP, 1 unit platelets - Transfusing 1 unit pRBC - CBC, coags q6h - SCD's for DVT ppx Endo: - Maintain euglycemia Patient discussed in detail with Dr. Guerrero. Phillip Wagner, DO PGY2 <Ralph Guerrero - Last Filed: 10/29/18 17:11> CCU Objective - Vital Signs / Intake & Output Intake and Output (Last 8hrs): Intake & Output 10/29/18 10/29/18 10/29/18 06:59 14:59 22:59 Intake Total 4270 355 Output Total 1230 Balance 3040 355 Intake: IV 2500 Right Forearm 2500 Blood Product 1770 325 Red Blood Cells Cpd As1 325 Lr Unit [id number] Other 30 Red Blood Cells Cpd As1 30 Lr Unit [id number] Output: Urine 370 Urethral (Luevano) 370 Urine/Stool Mix 800 Other 60 Other: # Bowel Movements 2 - Medications Active Medications: Active Medications Generic Name Dose Route Start Last Admin Trade Name Freq PRN Reason Stop Dose Admin Acetaminophen 650 mg 10/29/18 08:34 Tylenol 325mg Tab PO Q6H PRN Pain, Mild (1-3) Alprazolam 0.25 mg 10/28/18 22:00 10/28/18 22:55 Xanax PO 11/04/18 22:01 0.25 mg HS CAREY Administration Protocol Atorvastatin Calcium 10 mg 10/29/18 17:00 Lipitor PO DIN CAREY Sodium Chloride 1,000 mls @ 125 mls/hr 10/29/18 01:29 10/29/18 01:00 Sodium Chloride 0.9% IV 125 mls/hr .Q8H CAREY Administration Breo Ellipta 100-25 1 inhaler 10/29/18 10:00 Mcg Inh (Home Med) INH DAILY CAREY Pantoprazole Sodium 40 mg 10/28/18 12:30 10/29/18 10:00 Protonix Inj IVP 40 mg Q12 CAREY Administration - Patient Studies Lab Studies: Lab Studies 10/29/18 10/29/18 10/29/18 Range/Units 14:00 14:00 10:10 WBC 7.3 8.7 (4.5-11.0) 10^3/uL RBC 3.30 L 2.98 L (3.5-6.1) 10^6/uL Hgb 9.4 L 8.5 L (12.0-16.0) g/dL Hct 28.2 L 25.6 L (36.0-48.0) % MCV 85.5 85.9 (80.0-105.0) fl MCH 28.5 28.5 (25.0-35.0) pg MCHC 33.3 33.2 (31.0-37.0) g/dl RDW 14.5 14.8 H (11.5-14.5) % Plt Count 128 138 (120.0-450.0) 10^3/uL MPV 10.0 10.9 (7.0-11.0) fl Neut % (Auto) 78.6 H (50.0-68.0) % Lymph % (Auto) 13.5 L (22.0-35.0) % Beadle % (Auto) 7.3 H (1.0-6.0) % Eos % (Auto) 0.5 L (1.5-5.0) % Baso % (Auto) 0.1 (0.0-3.0) % Lymph # (Auto) 1.2 (1.2-3.4) Beadle # (Auto) 0.6 (0.1-0.6) Eos # (Auto) 0.0 (0.0-0.7) Baso # (Auto) 0.01 (0.0-2.0) K/mm3 Absolute Neuts (auto) 6.81 H (1.4-6.5) PT 12.6 H (9.4-12.5) SECONDS INR 1.14 APTT 26.3 L (26.9-38.3) Seconds pO2 (30-55) mm/Hg VBG pH (7.32-7.43) VBG pCO2 (40-60) VBG HCO3 (21-28) mmol/l VBG Total CO2 (22-28) mmol.L VBG O2 Sat (Calc) (40-65) % VBG Base Excess (0.0-2.0) mmol/L VBG Potassium (3.6-5.2) mmol/L Sodium (132-148) mmol/L Chloride (98-107) mmol/L Glucose (65-105) mg/dl Lactate (0.7-2.1) mmol/L FiO2 % Potassium (3.6-5.0) mmol/L Carbon Dioxide (21-33) mmol/L Anion Gap (10-20) BUN (7-21) mg/dL Creatinine (0.7-1.2) mg/dl Est GFR ( Amer) Est GFR (Non-Af Amer) Random Glucose (70-110) mg/dL Calcium (8.4-10.5) mg/dL Phosphorus (2.5-4.5) mg/dL Magnesium (1.7-2.2) mg/dL Total Bilirubin (0.2-1.3) mg/dL AST (14-36) U/L ALT (7-56) U/L Alkaline Phosphatase (38-126) U/L Troponin I ng/mL Total Protein (5.8-8.3) g/dL Albumin (3.0-4.8) g/dL Globulin gm/dL Albumin/Globulin Ratio (1.1-1.8) Venous Blood Potassium (3.6-5.2) mmol/L Blood Type Antibody Screen Crossmatch BBK History Checked 10/29/18 10/29/18 10/29/18 Range/Units 08:15 04:05 04:05 WBC 8.0 D (4.5-11.0) 10^3/uL RBC 3.33 L (3.5-6.1) 10^6/uL Hgb 9.5 L (12.0-16.0) g/dL Hct 28.6 L (36.0-48.0) % MCV 85.9 (80.0-105.0) fl MCH 28.5 (25.0-35.0) pg MCHC 33.2 (31.0-37.0) g/dl RDW 14.5 (11.5-14.5) % Plt Count 113 L (120.0-450.0) 10^3/uL MPV 10.5 (7.0-11.0) fl Neut % (Auto) 80.9 H (50.0-68.0) % Lymph % (Auto) 13.7 L (22.0-35.0) % Beadle % (Auto) 4.6 (1.0-6.0) % Eos % (Auto) 0.5 L (1.5-5.0) % Baso % (Auto) 0.3 (0.0-3.0) % Lymph # (Auto) 1.1 L (1.2-3.4) Beadle # (Auto) 0.4 (0.1-0.6) Eos # (Auto) 0.0 (0.0-0.7) Baso # (Auto) 0.02 (0.0-2.0) K/mm3 Absolute Neuts (auto) 6.44 (1.4-6.5) PT 12.7 H (9.4-12.5) SECONDS INR 1.12 APTT 27.2 (26.9-38.3) Seconds pO2 (30-55) mm/Hg VBG pH (7.32-7.43) VBG pCO2 (40-60) VBG HCO3 (21-28) mmol/l VBG Total CO2 (22-28) mmol.L VBG O2 Sat (Calc) (40-65) % VBG Base Excess (0.0-2.0) mmol/L VBG Potassium (3.6-5.2) mmol/L Sodium 142 (132-148) mmol/L Chloride 114 H (98-107) mmol/L Glucose (65-105) mg/dl Lactate (0.7-2.1) mmol/L FiO2 % Potassium 3.8 (3.6-5.0) mmol/L Carbon Dioxide 24 (21-33) mmol/L Anion Gap 8 L (10-20) BUN 14 (7-21) mg/dL Creatinine 0.7 (0.7-1.2) mg/dl Est GFR ( Amer) > 60 Est GFR (Non-Af Amer) > 60 Random Glucose 112 H (70-110) mg/dL Calcium 7.6 L (8.4-10.5) mg/dL Phosphorus 3.3 (2.5-4.5) mg/dL Magnesium 1.9 (1.7-2.2) mg/dL Total Bilirubin 0.5 (0.2-1.3) mg/dL AST 17 (14-36) U/L ALT 14 (7-56) U/L Alkaline Phosphatase 51 (38-126) U/L Troponin I ng/mL Total Protein 5.8 (5.8-8.3) g/dL Albumin 3.0 (3.0-4.8) g/dL Globulin 2.8 gm/dL Albumin/Globulin Ratio 1.1 (1.1-1.8) Venous Blood Potassium (3.6-5.2) mmol/L Blood Type Antibody Screen Crossmatch BBK History Checked 10/28/18 10/28/18 10/28/18 Range/Units 22:58 19:50 18:36 WBC 12.8 H D 6.9 (4.5-11.0) 10^3/uL RBC 3.41 L 3.48 L (3.5-6.1) 10^6/uL Hgb 9.7 L 9.8 L (12.0-16.0) g/dL Hct 29.9 L 30.4 L (36.0-48.0) % MCV 87.7 87.4 (80.0-105.0) fl MCH 28.4 28.2 (25.0-35.0) pg MCHC 32.4 32.2 (31.0-37.0) g/dl RDW 14.6 H 14.9 H (11.5-14.5) % Plt Count 143 157 (120.0-450.0) 10^3/uL MPV 10.8 10.8 (7.0-11.0) fl Neut % (Auto) 82.8 H (50.0-68.0) % Lymph % (Auto) 11.8 L (22.0-35.0) % Beadle % (Auto) 4.7 (1.0-6.0) % Eos % (Auto) 0.5 L (1.5-5.0) % Baso % (Auto) 0.2 (0.0-3.0) % Lymph # (Auto) 1.5 (1.2-3.4) Beadle # (Auto) 0.6 (0.1-0.6) Eos # (Auto) 0.1 (0.0-0.7) Baso # (Auto) 0.03 (0.0-2.0) K/mm3 Absolute Neuts (auto) 10.63 H (1.4-6.5) PT (9.4-12.5) SECONDS INR APTT (26.9-38.3) Seconds pO2 (30-55) mm/Hg VBG pH (7.32-7.43) VBG pCO2 (40-60) VBG HCO3 (21-28) mmol/l VBG Total CO2 (22-28) mmol.L VBG O2 Sat (Calc) (40-65) % VBG Base Excess (0.0-2.0) mmol/L VBG Potassium (3.6-5.2) mmol/L Sodium (132-148) mmol/L Chloride (98-107) mmol/L Glucose (65-105) mg/dl Lactate (0.7-2.1) mmol/L FiO2 % Potassium (3.6-5.0) mmol/L Carbon Dioxide (21-33) mmol/L Anion Gap (10-20) BUN (7-21) mg/dL Creatinine (0.7-1.2) mg/dl Est GFR ( Amer) Est GFR (Non-Af Amer) Random Glucose (70-110) mg/dL Calcium (8.4-10.5) mg/dL Phosphorus (2.5-4.5) mg/dL Magnesium (1.7-2.2) mg/dL Total Bilirubin (0.2-1.3) mg/dL AST (14-36) U/L ALT (7-56) U/L Alkaline Phosphatase (38-126) U/L Troponin I < 0.01 ng/mL Total Protein (5.8-8.3) g/dL Albumin (3.0-4.8) g/dL Globulin gm/dL Albumin/Globulin Ratio (1.1-1.8) Venous Blood Potassium (3.6-5.2) mmol/L Blood Type Antibody Screen Crossmatch BBK History Checked 10/28/18 10/28/18 Range/Units 18:20 08:23 WBC (4.5-11.0) 10^3/uL RBC (3.5-6.1) 10^6/uL Hgb (12.0-16.0) g/dL Hct (36.0-48.0) % MCV (80.0-105.0) fl MCH (25.0-35.0) pg MCHC (31.0-37.0) g/dl RDW (11.5-14.5) % Plt Count (120.0-450.0) 10^3/uL MPV (7.0-11.0) fl Neut % (Auto) (50.0-68.0) % Lymph % (Auto) (22.0-35.0) % Beadle % (Auto) (1.0-6.0) % Eos % (Auto) (1.5-5.0) % Baso % (Auto) (0.0-3.0) % Lymph # (Auto) (1.2-3.4) Beadle # (Auto) (0.1-0.6) Eos # (Auto) (0.0-0.7) Baso # (Auto) (0.0-2.0) K/mm3 Absolute Neuts (auto) (1.4-6.5) PT (9.4-12.5) SECONDS INR APTT (26.9-38.3) Seconds pO2 30 (30-55) mm/Hg VBG pH 7.40 (7.32-7.43) VBG pCO2 39.0 L (40-60) VBG HCO3 24.2 (21-28) mmol/l VBG Total CO2 25.4 (22-28) mmol.L VBG O2 Sat (Calc) 63.7 (40-65) % VBG Base Excess -0.5 L (0.0-2.0) mmol/L VBG Potassium 3.7 (3.6-5.2) mmol/L Sodium 143.0 (132-148) mmol/L Chloride 115.0 H (98-107) mmol/L Glucose 85 (65-105) mg/dl Lactate 1.5 (0.7-2.1) mmol/L FiO2 21.0 % Potassium (3.6-5.0) mmol/L Carbon Dioxide (21-33) mmol/L Anion Gap (10-20) BUN (7-21) mg/dL Creatinine (0.7-1.2) mg/dl Est GFR ( Amer) Est GFR (Non-Af Amer) Random Glucose (70-110) mg/dL Calcium (8.4-10.5) mg/dL Phosphorus (2.5-4.5) mg/dL Magnesium (1.7-2.2) mg/dL Total Bilirubin (0.2-1.3) mg/dL AST (14-36) U/L ALT (7-56) U/L Alkaline Phosphatase (38-126) U/L Troponin I ng/mL Total Protein (5.8-8.3) g/dL Albumin (3.0-4.8) g/dL Globulin gm/dL Albumin/Globulin Ratio (1.1-1.8) Venous Blood Potassium 3.7 (3.6-5.2) mmol/L Blood Type A POSITIVE Antibody Screen Negative Crossmatch See Detail BBK History Checked Patient has bt Laboratory Results - last 24 hr 10/28/18 10/28/18 10/28/18 08:23 18:20 18:36 WBC RBC Hgb Hct MCV MCH MCHC RDW Plt Count MPV Neut % (Auto) Lymph % (Auto) Beadle % (Auto) Eos % (Auto) Baso % (Auto) Lymph # (Auto) Beadle # (Auto) Eos # (Auto) Baso # (Auto) Absolute Neuts (auto) PT INR APTT pO2 30 VBG pH 7.40 VBG pCO2 39.0 L VBG HCO3 24.2 VBG Total CO2 25.4 VBG O2 Sat (Calc) 63.7 VBG Base Excess -0.5 L VBG Potassium 3.7 Sodium 143.0 Chloride 115.0 H Glucose 85 Lactate 1.5 FiO2 21.0 Potassium Carbon Dioxide Anion Gap BUN Creatinine Est GFR ( Amer) Est GFR (Non-Af Amer) Random Glucose Calcium Phosphorus Magnesium Total Bilirubin AST ALT Alkaline Phosphatase Troponin I < 0.01 Total Protein Albumin Globulin Albumin/Globulin Ratio Venous Blood Potassium 3.7 Blood Type A POSITIVE Antibody Screen Negative Crossmatch See Detail BBK History Checked Patient has bt 10/28/18 10/28/18 10/29/18 19:50 22:58 04:05 WBC 6.9 12.8 H D RBC 3.48 L 3.41 L Hgb 9.8 L 9.7 L Hct 30.4 L 29.9 L MCV 87.4 87.7 MCH 28.2 28.4 MCHC 32.2 32.4 RDW 14.9 H 14.6 H Plt Count 157 143 MPV 10.8 10.8 Neut % (Auto) 82.8 H Lymph % (Auto) 11.8 L Beadle % (Auto) 4.7 Eos % (Auto) 0.5 L Baso % (Auto) 0.2 Lymph # (Auto) 1.5 Beadle # (Auto) 0.6 Eos # (Auto) 0.1 Baso # (Auto) 0.03 Absolute Neuts (auto) 10.63 H PT INR APTT pO2 VBG pH VBG pCO2 VBG HCO3 VBG Total CO2 VBG O2 Sat (Calc) VBG Base Excess VBG Potassium Sodium 142 Chloride 114 H Glucose Lactate FiO2 Potassium 3.8 Carbon Dioxide 24 Anion Gap 8 L BUN 14 Creatinine 0.7 Est GFR ( Amer) > 60 Est GFR (Non-Af Amer) > 60 Random Glucose 112 H Calcium 7.6 L Phosphorus 3.3 Magnesium 1.9 Total Bilirubin 0.5 AST 17 ALT 14 Alkaline Phosphatase 51 Troponin I Total Protein 5.8 Albumin 3.0 Globulin 2.8 Albumin/Globulin Ratio 1.1 Venous Blood Potassium Blood Type Antibody Screen Crossmatch BBK History Checked 10/29/18 10/29/18 10/29/18 04:05 08:15 10:10 WBC 8.0 D 8.7 RBC 3.33 L 2.98 L Hgb 9.5 L 8.5 L Hct 28.6 L 25.6 L MCV 85.9 85.9 MCH 28.5 28.5 MCHC 33.2 33.2 RDW 14.5 14.8 H Plt Count 113 L 138 MPV 10.5 10.9 Neut % (Auto) 80.9 H 78.6 H Lymph % (Auto) 13.7 L 13.5 L Beadle % (Auto) 4.6 7.3 H Eos % (Auto) 0.5 L 0.5 L Baso % (Auto) 0.3 0.1 Lymph # (Auto) 1.1 L 1.2 Beadle # (Auto) 0.4 0.6 Eos # (Auto) 0.0 0.0 Baso # (Auto) 0.02 0.01 Absolute Neuts (auto) 6.44 6.81 H PT 12.7 H INR 1.12 APTT 27.2 pO2 VBG pH VBG pCO2 VBG HCO3 VBG Total CO2 VBG O2 Sat (Calc) VBG Base Excess VBG Potassium Sodium Chloride Glucose Lactate FiO2 Potassium Carbon Dioxide Anion Gap BUN Creatinine Est GFR ( Amer) Est GFR (Non-Af Amer) Random Glucose Calcium Phosphorus Magnesium Total Bilirubin AST ALT Alkaline Phosphatase Troponin I Total Protein Albumin Globulin Albumin/Globulin Ratio Venous Blood Potassium Blood Type Antibody Screen Crossmatch BBK History Checked 10/29/18 10/29/18 14:00 14:00 WBC 7.3 RBC 3.30 L Hgb 9.4 L Hct 28.2 L MCV 85.5 MCH 28.5 MCHC 33.3 RDW 14.5 Plt Count 128 MPV 10.0 Neut % (Auto) Lymph % (Auto) Beadle % (Auto) Eos % (Auto) Baso % (Auto) Lymph # (Auto) Beadle # (Auto) Eos # (Auto) Baso # (Auto) Absolute Neuts (auto) PT 12.6 H INR 1.14 APTT 26.3 L pO2 VBG pH VBG pCO2 VBG HCO3 VBG Total CO2 VBG O2 Sat (Calc) VBG Base Excess VBG Potassium Sodium Chloride Glucose Lactate FiO2 Potassium Carbon Dioxide Anion Gap BUN Creatinine Est GFR ( Amer) Est GFR (Non-Af Amer) Random Glucose Calcium Phosphorus Magnesium Total Bilirubin AST ALT Alkaline Phosphatase Troponin I Total Protein Albumin Globulin Albumin/Globulin Ratio Venous Blood Potassium Blood Type Antibody Screen Crossmatch BBK History Checked Radiology Impressions: Radiology Impressions Chest X-Ray 10/29/18 01:41 IMPRESSION: Interval nasogastric tube deployment as discussed above with stable cardiomegaly. No pulmonary vascular congestion or infiltrate bilaterally. Critical Care Progress Note - Nutrition Nutrition: Nutrition Category Date Time Status NPO Diet [DIET] Diets 10/28/18 Breakfast Ordered Attending/Attestation - Attestation I have personally seen and examined this patient.: Yes I have fully participated in the care of the patient.: Yes I have reviewed all pertinent clinical information: Yes Notes (Text): 10/29/18 17:[address] Guerrero note
[2018-10-29 10:22] LABS: BASO # 0.01 K/mm3 (0.0-2.0); BASO % 0.1 % (0.0-3.0); EOS % 0.5 % (1.5-5.0); HEMOGLOBIN 8.5 g/dL (12.0-16.0); LYMPH # 1.2 (1.2-3.4); LYMPH % 13.5 % (22.0-35.0); MEAN CELL VOLUME 85.9 fl (80.0-105.0); MEAN CORPUSCULAR HEMOGLOBIN 28.5 pg (25.0-35.0); MEAN CORPUSCULAR HGB CONC 33.2 g/dl (31.0-37.0); MEAN PLATELET VOLUME 10.9 fl (7.0-11.0); MONO # 0.6 (0.1-0.6); MONO % 7.3 % (1.0-6.0); RBC 2.98 10^6/uL (3.5-6.1); RED CELL DISTRIBUTION WIDTH 14.8 % (11.5-14.5); WHITE BLOOD COUNT 8.7 10^3/uL (4.5-11.0)
[2018-10-29] MEDS ORDERED: Sodium Chloride 0.9% 1,000 ML IV STA (12:47)
[2018-10-29] MEDS ORDERED: Peg-Electrolyte Oral Soln 4L (Golytely) PO STA (13:29)
[2018-10-29 14:03] LABS: HEMOGLOBIN 9.4 g/dL (12.0-16.0); MEAN CELL VOLUME 85.5 fl (80.0-105.0); MEAN CORPUSCULAR HEMOGLOBIN 28.5 pg (25.0-35.0); MEAN CORPUSCULAR HGB CONC 33.3 g/dl (31.0-37.0); RBC 3.3 10^6/uL (3.5-6.1); RED CELL DISTRIBUTION WIDTH 14.5 % (11.5-14.5); WHITE BLOOD COUNT 7.3 10^3/uL (4.5-11.0)
--- NOTE | 2018-10-29 14:06 | CP.PCM.PN ---
<Jass Ann - Last Filed: 10/29/18 14:03> Subjective - Date & Time of Evaluation Date of Evaluation: 10/29/18 Time of Evaluation: 14:03 - Subjective Subjective: Jass Ann, PGY-1, Internal medicine Progress Note for Dr. Ascencio Patient seen and evaluated at bedside. Patient had 1 bloody bowel movement overnight. Patient had 5 bloody bowel movements over the last 2 days. Patient been transfused multiple units of PRBCs, FFP, and platelets. Patient today reported right sided neck pain after multiple attempts for central line access overnight. In addition, patient initially did not complain of abdominal pain but after reevaluation reported abdominal pain. Patient denied dizziness, headache, chest pain, shortness of breath, nausea, vomiting, constipation, diarrhea, dysuria, hematuria. 12-point ROS was unremarkable except for what was mentioned above. Objective - Vital Signs/Intake and Output Vital Signs (last 24 hours): Temp Pulse Resp BP Pulse Ox 98.1 F 72 20 117/95 H 100 10/29/18 13:01 10/29/18 13:01 10/29/18 13:01 10/29/18 13:01 10/29/18 05:20 Intake and Output: 10/29/18 10/29/18 06:59 18:59 Intake Total 4595 355 Output Total 1230 Balance 3365 355 - Medications Medications: Current Medications Acetaminophen (Tylenol 325mg Tab) 650 mg PO Q6H PRN PRN Reason: Pain, Mild (1-3) Alprazolam (Xanax) 0.25 mg PO HS [facility]; Protocol Stop: 11/04/18 22:01 Last Admin: 10/28/18 22:55 Dose: 0.25 mg Sodium Chloride (Sodium Chloride 0.9%) 1,000 mls @ 125 mls/hr IV .Q8H [facility] Last Admin: 10/29/18 01:00 Dose: 125 mls/hr Breo Ellipta 100-25 ([facility] (Home Med)) 1 inhaler INH DAILY [facility] Pantoprazole Sodium (Protonix Inj) 40 mg IVP Q12 [facility] Last Admin: 10/28/18 22:05 Dose: 40 mg - Labs Labs: 10/29/18 10:10 10/29/18 04:05 PT 12.7 SECONDS (9.4-12.5) H 02/28/19 08:15 INR 1.12 10/29/18 08:15 APTT 27.2 Seconds (26.9-38.3) 10/29/18 08:15 - Constitutional Appears: Well, Non-toxic, No Acute Distress - Head Exam Head Exam: ATRAUMATIC, NORMAL INSPECTION, NORMOCEPHALIC - Eye Exam Eye Exam: EOMI, PERRL - ENT Exam ENT Exam: Mucous Membranes Dry - Neck Exam Neck Exam: Full ROM - Respiratory Exam Respiratory Exam: Clear to Ausculation Bilateral, NORMAL BREATHING PATTERN - Cardiovascular Exam Cardiovascular Exam: REGULAR RHYTHM, RRR - GI/Abdominal Exam GI & Abdominal Exam: Soft, Normal Bowel Sounds. absent: Tenderness - Extremities Exam Extremities Exam: Full ROM - Neurological Exam Neurological Exam: Alert, Awake, CN II-XII Intact, Oriented x3 - Skin Skin Exam: Dry, Intact Assessment and Plan - Assessment and Plan (Free Text) Assessment: 73 year old male with past medical history of hyperlipidemia, GI bleed, breast cancer in remission, valvular heart disease, diverticulosis, diverticulitis, and pancreatic cyst presented with multiple episodes of bright red blood of rectum. Patient was admitted for hemorrhagic shock 2/2 to likely lower GI bleed. Plan: Hemorrhagic shock 2/2 to lower GI bleed from diverticulosis -Hemoglobin dropped from 12.7 on admission to 9s. Today's hemoglobin was 9.5 -Patient's systolic blood pressure has ranged from 90s to 110. Upon presentation, SBP was 147 -Abdominal and Pelvis CT on admission showed no evidence of acute bleed -Patient is status post 4 U of pRBCs, 2 U of FFP, and 1 U of platelets. -GI bleeding scan: showed no evidence of acute bleed -Continue NS at 125cc/hr -NPO -Continue patient on protonix 40 mg IV Q12 -Patient will have colonoscopy by GI this evening -There are no recommendations for surgery at this time. -Monitor CBC Q4 Normocytic Anemia -Hgb: 9.5 this morning -Patient is status post 4 U of pRBCs, 2 U of FFP, and 1 U of platelets. -As per surgery, goal hemoglobin is more than 9. -Likely 2/2 to active lower GI bleed Anxiety -Continue with xanax COPD -Continue with home breo ellipta Hypertension -Hold all antihypertensives Hyperlipidemia -Started atorvastatin 10 mg daily GI prophylaxis: protonix 40 mg IV BID DVT prophylaxis: SCD <Gaurang Ascencio A - Last Filed: 10/29/18 14:51> Objective - Vital Signs/Intake and Output Vital Signs (last 24 hours): Temp Pulse Resp BP Pulse Ox 98.1 F 72 20 117/95 H 100 10/29/18 13:01 10/29/18 13:01 10/29/18 13:01 10/29/18 13:01 10/29/18 05:20 Intake and Output: 10/29/18 10/29/18 06:59 18:59 Intake Total 4595 355 Output Total 1230 Balance 3365 355 - Medications Medications: Current Medications Acetaminophen (Tylenol 325mg Tab) 650 mg PO Q6H PRN PRN Reason: Pain, Mild (1-3) Alprazolam (Xanax) 0.25 mg PO HS [facility]; Protocol Stop: 11/04/18 22:01 Last Admin: 10/28/18 22:55 Dose: 0.25 mg Atorvastatin Calcium (Lipitor) 10 mg PO DIN [facility] Sodium Chloride (Sodium Chloride 0.9%) 1,000 mls @ 125 mls/hr IV .Q8H [facility] Last Admin: 10/29/18 01:00 Dose: 125 mls/hr Breo Ellipta 100-25 ([facility] (Home Med)) 1 inhaler INH DAILY [facility] Pantoprazole Sodium (Protonix Inj) 40 mg IVP Q12 [facility] Last Admin: 10/28/18 22:05 Dose: 40 mg - Labs Labs: 10/29/18 14:00 10/29/18 04:05 PT 12.6 SECONDS (9.4-12.5) H 10/29/18 14:00 INR 1.14 10/29/18 14:00 APTT 26.3 Seconds (26.9-38.3) L 10/29/18 14:00 Attending/Attestation - Attestation I have personally seen and examined this patient.: Yes I have fully participated in the care of the patient.: Yes I have reviewed all pertinent clinical information, including history, physical exam and plan: Yes Notes (Text): 10/29/18 14:45 73 year old female with past medical history of GIB, diverticulosis, diverticulitis, s/p left hemicolectomy, valvular heart disease and breast cancer in remission who presented with complaint of bright red blood per rectum, possible diverticular / lower GIB. CT abd/pelvis and NM bleeding scan were negative for acute bleed. Continue to monitor CBC closely. She received multiple prbc/platelet/FFP transfusions. GI and surgery are following. Plan for possible colonoscopy later today/tomorrow. Gaurang Ascencio MD Hospitalist.
[2018-10-29 14:16] LABS: INR 1.14; PARTIAL THROMBOPLASTIN TIME 26.3 Seconds (26.9-38.3); PROTHROMBIN TIME 12.6 SECONDS (9.4-12.5)
--- NOTE | 2018-10-29 14:57 | CP.PCM.PN ---
<Angel Alfaro - Last Filed: 10/29/18 14:58> Subjective - Date & Time of Evaluation Date of Evaluation: 10/29/18 Time of Evaluation: 08:30 - Subjective Subjective: PGY 5 GI Follow-up Pt seen and examined bedside Overnight events noted Spoke with ICU resident and surgery resident Overall: 5 units PRBC, 2 units PLT, 2 unit FFP x2 BM bloody ROS: 12 point ROS conducted, neg other than above Objective - Vital Signs/Intake and Output Vital Signs (last 24 hours): Temp Pulse Resp BP Pulse Ox 98.1 F 72 20 117/95 H 100 10/29/18 13:01 10/29/18 13:01 10/29/18 13:01 10/29/18 13:01 10/29/18 05:20 Intake and Output: 10/29/18 10/29/18 06:59 18:59 Intake Total 4595 355 Output Total 1230 Balance 3365 355 - Medications Medications: Current Medications Acetaminophen (Tylenol 325mg Tab) 650 mg PO Q6H PRN PRN Reason: Pain, Mild (1-3) Alprazolam (Xanax) 0.25 mg PO HS [facility]; Protocol Stop: 11/04/18 22:01 Last Admin: 10/28/18 22:55 Dose: 0.25 mg Atorvastatin Calcium (Lipitor) 10 mg PO DIN [facility] Sodium Chloride (Sodium Chloride 0.9%) 1,000 mls @ 125 mls/hr IV .Q8H [facility] Last Admin: 10/29/18 01:00 Dose: 125 mls/hr Breo Ellipta 100-25 ([facility] (Home Med)) 1 inhaler INH DAILY [facility] Pantoprazole Sodium (Protonix Inj) 40 mg IVP Q12 [facility] Last Admin: 10/28/18 22:05 Dose: 40 mg - Labs Labs: 10/29/18 14:00 10/29/18 04:05 PT 12.6 SECONDS (9.4-12.5) H 10/29/18 14:00 INR 1.14 10/29/18 14:00 APTT 26.3 Seconds (26.9-38.3) L 10/29/18 14:00 - Constitutional Appears: Non-toxic, No Acute Distress - Head Exam Head Exam: ATRAUMATIC, NORMOCEPHALIC - Eye Exam Eye Exam: Normal appearance - ENT Exam ENT Exam: Mucous Membranes Moist, Normal Exam - Neck Exam Neck Exam: Normal Inspection - Respiratory Exam Respiratory Exam: Clear to Ausculation Bilateral, NORMAL BREATHING PATTERN. absent: Rales, Rhonchi, Wheezes, Respiratory Distress - Cardiovascular Exam Cardiovascular Exam: REGULAR RHYTHM, +S1, +S2 - GI/Abdominal Exam GI & Abdominal Exam: Soft, Normal Bowel Sounds. absent: Distended, Firm, Rigid, Tenderness, Organomegaly, Rebound - Extremities Exam Extremities Exam: absent: Joint Swelling, Pedal Edema - Neurological Exam Neurological Exam: Alert, Awake, Oriented x3 - Psychiatric Exam Psychiatric exam: Normal Affect, Normal Mood - Skin Skin Exam: Dry, Intact, Normal Color, Warm Assessment and Plan - Assessment and Plan (Free Text) Assessment: Paola Morgan is a 73M w/ hx of HLD, GI bleed, Breast CA (Remission), Valvular Heart Disease, Diverticulosis, Diverticulitis, Pancreatic Cyst who presents to the ER with risk bright blood per rectum Hematochezia, etiology likely diverticular; DDx: ulcer, AVM, mass, malignancy Anemia 2/2 above Hx of diverticulosis Hx of diverticular bleed hx of bartolome cholectomy Pancreatic cyst Plan: -continue to monitor h/h q 6 -maintain x2 IV lines -Continue IV fluids -Continue Protonix 40mg IV BID -Bleeding scan Neg -surgery on board -Keep Hgb >9, transfuse if needed -start rapid purge prep, golytly 4L, NPO after 445pm -EGD and colonoscopy -keep 2 units PRBC on hold -surgical backup if needed, and resident informed of plan D/W Dr. Kam <Kain Kam V - Last Filed: 10/29/18 23:27> Objective - Vital Signs/Intake and Output Vital Signs (last 24 hours): Temp Pulse Resp BP Pulse Ox 97.5 F L 65 15 86/52 L 91 L 10/29/18 20:00 10/29/18 20:10 10/29/18 20:10 10/29/18 20:02 10/29/18 20:10 Intake and Output: 10/29/18 10/30/18 18:59 06:59 Intake Total 3105 Output Total 2000 Balance 1105 - Medications Medications: Current Medications Acetaminophen (Tylenol 325mg Tab) 650 mg PO Q6H PRN PRN Reason: Pain, Mild (1-3) Alprazolam (Xanax) 0.25 mg PO HS [facility]; Protocol Stop: 11/04/18 22:01 Last Admin: 10/29/18 21:33 Dose: 0.25 mg Atorvastatin Calcium (Lipitor) 10 mg PO DIN [facility] Sodium Chloride (Sodium Chloride 0.9%) 1,000 mls @ 125 mls/hr IV .Q8H [facility] Last Admin: 10/29/18 01:00 Dose: 125 mls/hr Breo Ellipta 100-25 ([facility] (Home Med)) 1 inhaler INH DAILY [facility] Pantoprazole Sodium (Protonix Inj) 40 mg IVP Q12 [facility] Last Admin: 10/29/18 21:33 Dose: 40 mg - Labs Labs: 10/29/18 21:44 10/29/18 04:05 PT 12.6 SECONDS (9.4-12.5) H 10/29/18 14:00 INR 1.14 10/29/18 14:00 APTT 26.3 Seconds (26.9-38.3) L 10/29/18 14:00 Attending/Attestation - Attestation I have personally seen and examined this patient.: Yes I have fully participated in the care of the patient.: Yes I have reviewed all pertinent clinical information, including history, physical exam and plan: Yes Notes (Text): This is an addendum to GI progress report dictated by the GI Fellow. The patient was seen and examined earlier. Medical records, lab studies, imagings were reviewed. Last 24 hours events reviewed. Agreed with the above treatment plan as outlined in GI Fellow 's notes with the addition of the following 10/29/18 23:27
--- NOTE | 2018-10-29 17:36 | PN ---
DATE: 10/29/2018 SUBJECTIVE: The patient is seen and examined at bedside. She is comfortable. She talks in full sentences. She is very talkative and not in respiratory or otherwise distress. Her night was uneventful. She passed few blood clots however, since beginning of daytime, she did not have any melena or BPR. PHYSICAL EXAMINATION: VITAL SIGNS: Currently blood pressure 117/95, temperature 98.1, heart rate 72, respiratory rate 20, oxygen saturation 100% on room air. ENT: Head and neck atraumatic. LUNGS: Clear to auscultation bilaterally. HEART: Regular rate and rhythm. S1, S2 normal. ABDOMEN: Soft, nontender, nondistended. There is a midline scar from previous left hemicolectomy 2 years ago. No peritoneal sign. No rebound tenderness, voluntary or involuntary guarding. MUSCULOSKELETAL: Trace bilateral pedal and ankle edema. NEURO: The patient moves all extremities spontaneously. SKIN: Moist. PSYCH: The patient is alert, awake and oriented x3. LABORATORY DATA: WBC 8.7, hemoglobin 8.5 down from 9.5 after 1 unit of blood. Totally, the patient received 4 units of blood since her admission to the hospital. She received 1 bag of platelets and 2 units of FFP. Platelet count 138. Sodium 142, potassium 3.8, chloride 114, carbon dioxide 24, BUN 14, creatinine 0.7, glucose 112, calcium 7.6, AST 17, ALT 14, total bilirubin 0.5. Troponin less than 0.01. Lactic acid 1.5 as of yesterday. Nuclear bleeding scan showed no evidence of active gastrointestinal bleeding. Abdominal and pelvic CAT scan revealed small ventral hernia containing segment of bowel. There is no obstruction. There are no acute intra-abdominal findings. MEDICATIONS: Tylenol p.r.n., Xanax, Breo, Protonix 40 mg IV every 12 hours, normal saline 125 mL/hour. ASSESSMENT AND PLAN: This is a 73-year-old lady who presented with what appears to be lower gastrointestinal bleed with however negative gastrointestinal bleeding scan. Upper gastrointestinal bleed after conversation with GI service appears to be less likely and several gastric lavages did not reveal either coffee-ground or mason blood. Of note, the patient did have left hemicolectomy 3 years ago for similar complaints/problem. At present time, GI service will be reaching to surgical service to come up with mutually agreed plan of action. No decisive plan about colonoscopy or arteriogram with and without embolization was put forth by GI Service before speaking with general surgery service. At the present time, the patient is hemodynamically and respiratory winkler stable. Her lactic acid level is within normal limits. Her troponin level is not elevated. She does not have any signs of end-organ dysfunction including normal mentation, no chest pain and normal renal function. At the present time, we will continue n.p.o. status, intravenous fluids, maintain hemoglobin level between 8 and 10 in light of her questionable but ongoing bleeding. We will try to avoid dilutional coagulopathy, hypothermia, and acidosis. We will transfuse at 1:1:1 ratio. We will continue with CBC every 4 hours, Protonix b.i.d., deep vein thrombosis, and gastrointestinal prophylaxis. Ralph Guerrero MD
[2018-10-29] MEDS ORDERED: Non Formulary Medication (Rosuvastatin Calcium [Crestor] 5 MG) PO SCH (18:00)
[2018-10-29] MEDS ORDERED: Propofol 10 mg/ml Inj (20 ML) ONE (18:05)
[2018-10-29] MEDS ORDERED: Lidocaine PF 2% (5 ml) Inj (For Cardiac Arrhy) ONE (18:05)
[2018-10-29] MEDS ORDERED: Etomidate 20 mg/10ml Inj IV ONE (18:06)
[2018-10-29] MEDS ORDERED: Phenylephrine 10 mg/ml Inj ONE (18:36)
--- NOTE | 2018-10-29 20:54 | PCM.PROC ---
Procedures Attestation:: I certify that I have explained the specified Operation(s) or Procedure(s), risks, benefits and reasonable alternatives to the Patient and/or other person responsible. The opportunity was given to ask questions and all questions answered - Central Line Placement Right Femoral Triple Lumen Catheter Aseptic technique was employed throughout the procedure: Hand Hygiene done prior to procedure, Full sterile barriers (mask, hair cover, sterile gown, sterile gloves), Full body sterile drape, Chloraprep Antiseptic: 2 minute prep for Femoral CVP Time Out Performed: Yes Pt. Placed on Pulse Ox Monitor: Yes Central Line Prep: Chlorhexidine-Alcohol Combination Local Anesthesia Used: Lidocaine 1% Amount of Anesthesia Used (mls): 3 Ultrasound Used for Placement: Yes Central Line Lumen Inserted: triple Central Line Length: 20 cm Post Procedure: Sutured in Place, Good Blood Return, All Ports Aspirated, Flushed, Capped, Sterile Dressing Applied Secured by: Suture Post procedure dressing: Clear vapor permeable, Chlorhexidine disc (Biopatch) Post Procedure X-Ray: No Patient Tolerated Procedure: Well, No Complications Immediate Complications: None Additional Comments: Written consent obtained and on chart
[2018-10-29 22:15] LABS: HEMOGLOBIN 8.7 g/dL (12.0-16.0); MEAN CELL VOLUME 85.9 fl (80.0-105.0); MEAN CORPUSCULAR HEMOGLOBIN 28.4 pg (25.0-35.0); MEAN CORPUSCULAR HGB CONC 33.1 g/dl (31.0-37.0); MEAN PLATELET VOLUME 10.4 fl (7.0-11.0); RBC 3.06 10^6/uL (3.5-6.1); RED CELL DISTRIBUTION WIDTH 14.9 % (11.5-14.5); WHITE BLOOD COUNT 6.6 10^3/uL (4.5-11.0)
[2018-10-30] MEDS ORDERED: Sodium Chloride 0.9% 500 ML IV STA ×2 (00:07→02:06)
[2018-10-30 00:25] LABS: BASO # 0.02 K/mm3 (0.0-2.0); BASO % 0.4 % (0.0-3.0); EOS # 0.1 (0.0-0.7); EOS % 1.4 % (1.5-5.0); HEMOGLOBIN 8.4 g/dL (12.0-16.0); LYMPH # 1.4 (1.2-3.4); LYMPH % 24.6 % (22.0-35.0); MEAN CELL VOLUME 86.3 fl (80.0-105.0); MEAN CORPUSCULAR HEMOGLOBIN 28.8 pg (25.0-35.0); MEAN CORPUSCULAR HGB CONC 33.3 g/dl (31.0-37.0); MEAN PLATELET VOLUME 9.9 fl (7.0-11.0); MONO # 0.4 (0.1-0.6); MONO % 6.9 % (1.0-6.0); RBC 2.92 10^6/uL (3.5-6.1); RED CELL DISTRIBUTION WIDTH 14.9 % (11.5-14.5); WHITE BLOOD COUNT 5.6 10^3/uL (4.5-11.0)
[2018-10-30] MEDS ORDERED: Sodium Chloride 0.9% 1,000 ML IV SCH (02:07)
[2018-10-30 06:16] LABS: HEMOGLOBIN 8.4 g/dL (12.0-16.0); MEAN CELL VOLUME 87.5 fl (80.0-105.0); MEAN CORPUSCULAR HEMOGLOBIN 29.2 pg (25.0-35.0); MEAN CORPUSCULAR HGB CONC 33.3 g/dl (31.0-37.0); MEAN PLATELET VOLUME 10.5 fl (7.0-11.0); RBC 2.88 10^6/uL (3.5-6.1); RED CELL DISTRIBUTION WIDTH 15.1 % (11.5-14.5); WHITE BLOOD COUNT 6.2 10^3/uL (4.5-11.0)
[2018-10-30 06:35] LABS: TROPONIN I 0.04 ng/mL
[2018-10-30 07:14] LABS: ALBUMIN 2.7 g/dL (3.0-4.8); ALT/SGPT 7 U/L (7-56); AST/SGOT 20 U/L (14-36); BLOOD UREA NITROGEN 5 mg/dL (7-21); CALCIUM 7.3 mg/dL (8.4-10.5); GFR NON-AFRICAN AMERICAN > 60
--- NOTE | 2018-10-30 07:34 | CP.PCM.PN ---
<Jose Beck - Last Filed: 10/30/18 12:40> Subjective - Date & Time of Evaluation Date of Evaluation: 10/30/18 Time of Evaluation: 07:34 - Subjective Subjective: PGY-1 Medicine progress note for Dr. Ascencio Patient seen and examined at bedside. Patient's SBP ranges from 80-110 overnight. She denies further rectal bleeding. She states that she is feeling better, less anxious, but feels lethargic. She complains of mild abdominal pain from drinking Golytely and having multiple bowel movements.She denies fevers, chills, shortness of breath, chest pain, nausea, vomiting, or dysuria. Objective - Vital Signs/Intake and Output Vital Signs (last 24 hours): Temp Pulse Resp BP Pulse Ox 98.2 F 64 20 108/54 L 95 10/30/18 04:00 10/30/18 06:50 10/30/18 06:50 10/30/18 06:00 10/30/18 06:50 Intake and Output: 10/30/18 10/30/18 06:59 18:59 Intake Total 2700 Output Total 1600 Balance 1100 - Medications Medications: Current Medications Acetaminophen (Tylenol 325mg Tab) 650 mg PO Q6H PRN PRN Reason: Pain, Mild (1-3) Last Admin: 10/30/18 02:11 Dose: 650 mg Alprazolam (Xanax) 0.25 mg PO HS [facility]; Protocol Stop: 11/04/18 22:01 Last Admin: 10/29/18 21:33 Dose: 0.25 mg Atorvastatin Calcium (Lipitor) 10 mg PO DIN [facility] Sodium Chloride (Sodium Chloride 0.9%) 1,000 mls @ 150 mls/hr IV .Q6H40M [facility] Last Admin: 10/30/18 02:07 Dose: 150 mls/hr Breo Ellipta 100-25 ([facility] (Home Med)) 1 inhaler INH DAILY [facility] Pantoprazole Sodium (Protonix Inj) 40 mg IVP Q12 [facility] Last Admin: 10/29/18 21:33 Dose: 40 mg - Labs Labs: 10/30/18 05:30 10/30/18 05:30 PT 12.6 SECONDS (9.4-12.5) H 10/29/18 14:00 INR 1.14 10/29/18 14:00 APTT 26.3 Seconds (26.9-38.3) L 10/29/18 14:00 - Additional Findings Additional findings: - Constitutional Appears: Non-toxic, No Acute Distress Additional comments: Appears lethargic - Head Exam Head Exam: ATRAUMATIC, NORMAL INSPECTION - Eye Exam Eye Exam: EOMI, Normal appearance Pupil Exam: NORMAL ACCOMODATION, PERRL - ENT Exam ENT Exam: Mucous Membranes Moist - Neck Exam Neck exam: Positive for: Normal Inspection - Respiratory Exam Respiratory Exam: Clear to Auscultation Bilateral. absent: Rales, Rhonchi, Wheezes, Respiratory Distress - Cardiovascular Exam Cardiovascular Exam: REGULAR RHYTHM, +S1, +S2. absent: Gallop, Rubs, Systolic Murmur - GI/Abdominal Exam GI & Abdominal Exam: Normal Bowel Sounds, Soft, Tenderness (Mildly tender to palpation in the LRQ and LLQ.). absent: Distended, Firm, Guarding, Rigid - Extremities Exam Extremities exam: Negative for: calf tenderness, pedal edema - Back Exam Back exam: absent: CVA tenderness (L), CVA tenderness (R) - Neurological Exam Neurological exam: Alert, CN II-XII Intact, Oriented x3 - Psychiatric Exam Psychiatric exam: Normal affect, normal mood - Skin Skin Exam: Dry, Intact, Normal Color, Warm Assessment and Plan - Assessment and Plan (Free Text) Assessment: 73 yo F with PMH of HLD, GI bleed, Breast CA (Remission), Valvular Heart Disease, Diverticulosis, Diverticulitis, Pancreatic Cyst presents to [facility] for GI bleed. Patient has not required any further blood products and is hemodynamically stable. Patient will be downgraded from the ICu and transferred to med/surg floor. Plan: Rectal bleeding: - EGD/colonoscopy on 10/29 showed gastritis and diffuse diverticulosis - Abd/Pelv CT: small ventral hernia containing a segment of bowel, without signs of obstruction - GI Bleeding scan: No evidence of active GI bleeding - Patient's systolic blood pressure has ranged from 80s to 110 - Hb today: 8.4 - Blood products so far: PRBC X 4, Platelets X 2, FFP X 2 - NS at 150 cc/hr - Protonix 40mg IV BID - NPO - GI consulted, Dr. Kam - Surgery consulted, Dr. Osuna - No acute surgical interventions at this time - CBC Q6h - High fall risk protocol Normocytic Anemia - Likely 2/2 to active lower GI bleed - Hgb: 8.4 this morning - Blood products so far: PRBC X 4, Platelets X 1, FFP X 3 - Goal hemoglobin is more than 9 Hypokalemia - Potassium this mornin.0 - Ordered Potassium chloride 20 mEQ X 2 - Continue to monitor with daily CMP HTN - Hold all anti-hypertensives HLD - Atorvastatin 10 mg daily History of anxiety - Xanax 0.25mg PO HS Prophylaxis: - Protonix 40mg IV BID - DVT: SCD's Patient seen and case discussed with attending, Dr. Silva Beck, PGY-1 <Gaurang Ascencio - Last Filed: 10/30/18 16:58> Objective - Vital Signs/Intake and Output Vital Signs (last 24 hours): Temp Pulse Resp BP Pulse Ox 98.8 F 60 18 97/59 L 96 10/30/18 14:00 10/30/18 14:00 10/30/18 14:00 10/30/18 14:00 10/30/18 14:00 Intake and Output: 10/30/18 10/30/18 06:59 18:59 Intake Total 2700 Output Total 1600 Balance 1100 - Medications Medications: Current Medications Acetaminophen (Tylenol 325mg Tab) 650 mg PO Q6H PRN PRN Reason: Pain, Mild (1-3) Last Admin: 10/30/18 02:11 Dose: 650 mg Alprazolam (Xanax) 0.25 mg PO HS [facility]; Protocol Stop: 11/04/18 22:01 Last Admin: 10/29/18 21:33 Dose: 0.25 mg Atorvastatin Calcium (Lipitor) 10 mg PO DIN [facility] Sodium Chloride (Sodium Chloride 0.9%) 1,000 mls @ 100 mls/hr IV .Q10H [facility] Last Admin: 10/30/18 08:00 Dose: 100 mls/hr Breo Ellipta 100-25 ([facility] (Home Med)) 1 inhaler INH DAILY [facility] Pantoprazole Sodium (Protonix Inj) 40 mg IVP Q12 [facility] Last Admin: 10/30/18 09:42 Dose: 40 mg Sodium Chloride ([place] [facility] [place]) 0 ml NS PRN PRN PRN Reason: Nasal congestion - Labs Labs: 10/30/18 05:30 10/30/18 05:30 PT 12.6 SECONDS (9.4-12.5) H 10/29/18 14:00 INR 1.14 10/29/18 14:00 APTT 26.3 Seconds (26.9-38.3) L 10/29/18 14:00 Attending/Attestation - Attestation I have personally seen and examined this patient.: Yes I have fully participated in the care of the patient.: Yes I have reviewed all pertinent clinical information, including history, physical exam and plan: Yes Notes (Text): 10/30/18 16:56 73 year old female with past medical history of GIB, diverticulosis, diverticulitis, s/p left hemicolectomy, valvular heart disease and breast cancer in remission who presented with complaint of bright red blood per rectum, possible diverticular / lower GIB. She received multiple prbc/platelet/FFP transfusions. CT abd/pelvis and NM bleeding scan were negative for acute bleed. EGD/colonoscopy was done yesterday which showed gastritis and diverticulosis. GI is following. Continue to monitor CBC closely and transfuse as needed. Diet is advanced today to liquids. She will be downgraded from ICU today. Gaurang Ascencio MD Hospitalist.
[2018-10-30] MEDS: Sodium Chloride 0.9% 1,000 ML IV SCH ×2 (08:00→19:46)
--- NOTE | 2018-10-30 10:45 | CP.CCUPN ---
<Jaylan Wagner - Last Filed: 10/30/18 10:40> CCU Subjective - Physician Review Subjective (Free Text): ICU Progress Note for Dr. Arita Patient seen and examined at bedside. No acute overnight events. Patient did not require any further transfusions overnight. Patient states she has mild a bdominal pain after colonscopy, but is improving. Patient denies dizziness, fatigue, CP, SOB, n/v/d, fever, chills, STEPHENSON, and dysuria. CCU Objective - Vital Signs / Intake & Output Vital Signs (Last 4 hours): Vital Signs Temp Pulse Resp BP Pulse Ox 10/30/18 08:00 97.6 F 64 20 108/54 L 95 10/30/18 06:50 64 20 95 Intake and Output (Last 8hrs): Intake & Output 10/29/18 10/30/18 10/30/18 22:59 06:59 14:59 Intake Total 2750 2700 Output Total 2000 1600 Balance 750 1100 Intake: IV 1000 2500 Right Femoral 2500 Right Wrist 1000 Oral 1200 200 Blood Product 550 Output: Urine 2000 1600 Urethral ([place]) 2000 1600 Other: # Bowel Movements 3 - Physical Exam Head: Positive for: Atraumatic, Normocephalic Extroacular Muscles: Positive for: EOMI Mouth: Positive for: Moist Mucous Membranes Pharnyx: Positive for: Normal Neck: Positive for: Normal Range of Motion Respiratory/Chest: Positive for: Clear to Auscultation. Negative for: Wheezes, Rales, Rhonchi Cardiovascular: Positive for: Regular Rate and Rhythm, Normal S1, S2. Negative for: Murmurs, Rub, Gallop Abdomen: Positive for: Normal Bowel Sounds. Negative for: Tenderness, Distention, Peritoneal Signs, Rebound, Guarding, Hernias Upper Extremity: Positive for: Normal Inspection. Negative for: Cyanosis, Edema Lower Extremity: Positive for: Normal Inspection. Negative for: Edema Neurological: Positive for: GCS=15, CN II-XII Intact, Speech Normal Skin: Positive for: Warm, Dry, Normal Color. Negative for: Rashes Psychiatric: Positive for: Alert, Oriented x 3 - Medications Active Medications: Active Medications Generic Name Dose Route Start Last Admin Trade Name Freq PRN Reason Stop Dose Admin Acetaminophen 650 mg 10/29/18 08:34 10/30/18 02:11 Tylenol 325mg Tab PO 650 mg Q6H PRN Administration Pain, Mild (1-3) Alprazolam 0.25 mg 10/28/18 22:00 10/29/18 21:33 Xanax PO 11/04/18 22:01 0.25 mg HS CAREY Administration Protocol Atorvastatin Calcium 10 mg 10/29/18 17:00 Lipitor PO DIN CAREY Potassium Chloride 20 meq in 100 mls @ 50 mls/hr 10/30/18 09:00 10/30/18 09:41 Potassium Chloride 20 Meq/100 Ml IVPB 10/30/18 12:59 50 mls/hr Q2H CAREY Administration Sodium Chloride 1,000 mls @ 100 mls/hr 10/30/18 08:00 10/30/18 08:00 Sodium Chloride 0.9% IV 100 mls/hr .Q10H CAREY Administration Breo Ellipta 100-25 1 inhaler 10/29/18 10:00 Mcg Inh (Home Med) INH DAILY CAREY Pantoprazole Sodium 40 mg 10/28/18 12:30 10/30/18 09:42 Protonix Inj IVP 40 mg Q12 CAREY Administration Sodium Chloride 0 ml 10/30/18 08:59 [place] Nasal Topaz NS PRN PRN Nasal congestion - Patient Studies Lab Studies: Lab Studies 10/30/18 10/30/18 10/30/18 Range/Units 05:30 05:30 00:10 WBC 6.2 (4.5-11.0) 10^3/uL RBC 2.88 L (3.5-6.1) 10^6/uL Hgb 8.4 L (12.0-16.0) g/dL Hct 25.2 L (36.0-48.0) % MCV 87.5 (80.0-105.0) fl MCH 29.2 (25.0-35.0) pg MCHC 33.3 (31.0-37.0) g/dl RDW 15.1 H (11.5-14.5) % Plt Count 100 L (120.0-450.0) 10^3/uL MPV 10.5 (7.0-11.0) fl Neut % (Auto) (50.0-68.0) % Lymph % (Auto) (22.0-35.0) % [place] % (Auto) (1.0-6.0) % Eos % (Auto) (1.5-5.0) % Baso % (Auto) (0.0-3.0) % Lymph # (Auto) (1.2-3.4) [place] # (Auto) (0.1-0.6) Eos # (Auto) (0.0-0.7) Baso # (Auto) (0.0-2.0) K/mm3 Absolute Neuts (auto) (1.4-6.5) PT (9.4-12.5) SECONDS INR APTT (26.9-38.3) Seconds Sodium 143 (132-148) mmol/L Potassium 3.0 L (3.6-5.0) mmol/L Chloride 114 H (98-107) mmol/L Carbon Dioxide 26 (21-33) mmol/L Anion Gap 6 L (10-20) BUN 5 L (7-21) mg/dL Creatinine 0.8 (0.7-1.2) mg/dl Est GFR ( Amer) > 60 Est GFR (Non-Af Amer) > 60 Random Glucose 77 (70-110) mg/dL Calcium 7.3 L (8.4-10.5) mg/dL Phosphorus 2.5 (2.5-4.5) mg/dL Magnesium 1.9 (1.7-2.2) mg/dL Total Bilirubin 0.2 (0.2-1.3) mg/dL AST 20 (14-36) U/L ALT 7 (7-56) U/L Alkaline Phosphatase 47 (38-126) U/L Troponin I 0.04 D 0.02 D ng/mL Total Protein 5.3 L (5.8-8.3) g/dL Albumin 2.7 L (3.0-4.8) g/dL Globulin 2.6 gm/dL Albumin/Globulin Ratio 1.0 L (1.1-1.8) Blood Type Antibody Screen Crossmatch BBK History Checked 10/30/18 10/29/18 10/29/18 Range/Units 00:10 21:44 14:00 WBC 5.6 6.6 (4.5-11.0) 10^3/uL RBC 2.92 L 3.06 L (3.5-6.1) 10^6/uL Hgb 8.4 L 8.7 L (12.0-16.0) g/dL Hct 25.2 L 26.3 L (36.0-48.0) % MCV 86.3 85.9 (80.0-105.0) fl MCH 28.8 28.4 (25.0-35.0) pg MCHC 33.3 33.1 (31.0-37.0) g/dl RDW 14.9 H 14.9 H (11.5-14.5) % Plt Count 110 L 122 (120.0-450.0) 10^3/uL MPV 9.9 10.4 (7.0-11.0) fl Neut % (Auto) 66.7 (50.0-68.0) % Lymph % (Auto) 24.6 (22.0-35.0) % [place] % (Auto) 6.9 H (1.0-6.0) % Eos % (Auto) 1.4 L (1.5-5.0) % Baso % (Auto) 0.4 (0.0-3.0) % Lymph # (Auto) 1.4 (1.2-3.4) [place] # (Auto) 0.4 (0.1-0.6) Eos # (Auto) 0.1 (0.0-0.7) Baso # (Auto) 0.02 (0.0-2.0) K/mm3 Absolute Neuts (auto) 3.76 (1.4-6.5) PT 12.6 H (9.4-12.5) SECONDS INR 1.14 APTT 26.3 L (26.9-38.3) Seconds Sodium (132-148) mmol/L Potassium (3.6-5.0) mmol/L Chloride (98-107) mmol/L Carbon Dioxide (21-33) mmol/L Anion Gap (10-20) BUN (7-21) mg/dL Creatinine (0.7-1.2) mg/dl Est GFR ( Amer) Est GFR (Non-Af Amer) Random Glucose (70-110) mg/dL Calcium (8.4-10.5) mg/dL Phosphorus (2.5-4.5) mg/dL Magnesium (1.7-2.2) mg/dL Total Bilirubin (0.2-1.3) mg/dL AST (14-36) U/L ALT (7-56) U/L Alkaline Phosphatase (38-126) U/L Troponin I ng/mL Total Protein (5.8-8.3) g/dL Albumin (3.0-4.8) g/dL Globulin gm/dL Albumin/Globulin Ratio (1.1-1.8) Blood Type Antibody Screen Crossmatch BBK History Checked 10/29/18 10/28/18 Range/Units 14:00 08:23 WBC 7.3 (4.5-11.0) 10^3/uL RBC 3.30 L (3.5-6.1) 10^6/uL Hgb 9.4 L (12.0-16.0) g/dL Hct 28.2 L (36.0-48.0) % MCV 85.5 (80.0-105.0) fl MCH 28.5 (25.0-35.0) pg MCHC 33.3 (31.0-37.0) g/dl RDW 14.5 (11.5-14.5) % Plt Count 128 (120.0-450.0) 10^3/uL MPV 10.0 (7.0-11.0) fl Neut % (Auto) (50.0-68.0) % Lymph % (Auto) (22.0-35.0) % [place] % (Auto) (1.0-6.0) % Eos % (Auto) (1.5-5.0) % Baso % (Auto) (0.0-3.0) % Lymph # (Auto) (1.2-3.4) [place] # (Auto) (0.1-0.6) Eos # (Auto) (0.0-0.7) Baso # (Auto) (0.0-2.0) K/mm3 Absolute Neuts (auto) (1.4-6.5) PT (9.4-12.5) SECONDS INR APTT (26.9-38.3) Seconds Sodium (132-148) mmol/L Potassium (3.6-5.0) mmol/L Chloride (98-107) mmol/L Carbon Dioxide (21-33) mmol/L Anion Gap (10-20) BUN (7-21) mg/dL Creatinine (0.7-1.2) mg/dl Est GFR ( Amer) Est GFR (Non-Af Amer) Random Glucose (70-110) mg/dL Calcium (8.4-10.5) mg/dL Phosphorus (2.5-4.5) mg/dL Magnesium (1.7-2.2) mg/dL Total Bilirubin (0.2-1.3) mg/dL AST (14-36) U/L ALT (7-56) U/L Alkaline Phosphatase (38-126) U/L Troponin I ng/mL Total Protein (5.8-8.3) g/dL Albumin (3.0-4.8) g/dL Globulin gm/dL Albumin/Globulin Ratio (1.1-1.8) Blood Type A POSITIVE Antibody Screen Negative Crossmatch See Detail BBK History Checked Patient has bt Laboratory Results - last 24 hr 10/28/18 10/29/18 10/29/18 08:23 14:00 14:00 WBC 7.3 RBC 3.30 L Hgb 9.4 L Hct 28.2 L MCV 85.5 MCH 28.5 MCHC 33.3 RDW 14.5 Plt Count 128 MPV 10.0 Neut % (Auto) Lymph % (Auto) [place] % (Auto) Eos % (Auto) Baso % (Auto) Lymph # (Auto) [place] # (Auto) Eos # (Auto) Baso # (Auto) Absolute Neuts (auto) PT 12.6 H INR 1.14 APTT 26.3 L Sodium Potassium Chloride Carbon Dioxide Anion Gap BUN Creatinine Est GFR ( Amer) Est GFR (Non-Af Amer) Random Glucose Calcium Phosphorus Magnesium Total Bilirubin AST ALT Alkaline Phosphatase Troponin I Total Protein Albumin Globulin Albumin/Globulin Ratio Blood Type A POSITIVE Antibody Screen Negative Crossmatch See Detail BBK History Checked Patient has bt 10/29/18 10/30/18 10/30/18 21:44 00:10 00:10 WBC 6.6 5.6 RBC 3.06 L 2.92 L Hgb 8.7 L 8.4 L Hct 26.3 L 25.2 L MCV 85.9 86.3 MCH 28.4 28.8 MCHC 33.1 33.3 RDW 14.9 H 14.9 H Plt Count 122 110 L MPV 10.4 9.9 Neut % (Auto) 66.7 Lymph % (Auto) 24.6 [place] % (Auto) 6.9 H Eos % (Auto) 1.4 L Baso % (Auto) 0.4 Lymph # (Auto) 1.4 [place] # (Auto) 0.4 Eos # (Auto) 0.1 Baso # (Auto) 0.02 Absolute Neuts (auto) 3.76 PT INR APTT Sodium Potassium Chloride Carbon Dioxide Anion Gap BUN Creatinine Est GFR ( Amer) Est GFR (Non-Af Amer) Random Glucose Calcium Phosphorus Magnesium Total Bilirubin AST ALT Alkaline Phosphatase Troponin I 0.02 D Total Protein Albumin Globulin Albumin/Globulin Ratio Blood Type Antibody Screen Crossmatch BBK History Checked 10/30/18 10/30/18 05:30 05:30 WBC 6.2 RBC 2.88 L Hgb 8.4 L Hct 25.2 L MCV 87.5 MCH 29.2 MCHC 33.3 RDW 15.1 H Plt Count 100 L MPV 10.5 Neut % (Auto) Lymph % (Auto) [place] % (Auto) Eos % (Auto) Baso % (Auto) Lymph # (Auto) [place] # (Auto) Eos # (Auto) Baso # (Auto) Absolute Neuts (auto) PT INR APTT Sodium 143 Potassium 3.0 L Chloride 114 H Carbon Dioxide 26 Anion Gap 6 L BUN 5 L Creatinine 0.8 Est GFR ( Amer) > 60 Est GFR (Non-Af Amer) > 60 Random Glucose 77 Calcium 7.3 L Phosphorus 2.5 Magnesium 1.9 Total Bilirubin 0.2 AST 20 ALT 7 Alkaline Phosphatase 47 Troponin I 0.04 D Total Protein 5.3 L Albumin 2.7 L Globulin 2.6 Albumin/Globulin Ratio 1.0 L Blood Type Antibody Screen Crossmatch BBK History Checked EKG/Cardiology Studies: Cardiology / EKG Studies 10/30/18 00:25 ELECTROCARDIOGRAM Stat Comment: hypotension Reason For Exam: hypotension 10/30/18 06:25 EKG [ELECTROCARDIOGRAM] Q6H Comment: Reason For Exam: hypotension 10/30/18 12:25 EKG [ELECTROCARDIOGRAM] Q6H Comment: Reason For Exam: hypotension Critical Care Progress Note - Nutrition Nutrition: Nutrition Category Date Time Status Liquid Diet [DIET] Diets 10/30/18 Breakfast Ordered Assessment/Plan - Assessment and Plan (Free Text) Assessment: 73 yo F with PMH of HLD, GI bleed, Breast CA (Remission), Valvular Heart Disease, Diverticulosis, Diverticulitis, Pancreatic Cyst [place] [facility] [place]. Patient was admitted to the ICU for hemorrhagic shock 2/2 lower GI bleed. Patient has not required any further blood products and is hemodynamically stable. Patient's systolic blood pressure at baseline appears to be in the 80- 90's. Patient will be transferred to med/surg. Plan: Neuro: - AOx3 - Maintain normothermia CV: - Hold beta blockers and anti-hypertensives - Maintain MAP > 65 - Cont to monitor vitals Pulm: - Maintain O2 > 92% GI: - EGD/colonoscopy showed gastritis and diffuse diverticulosis - Abd/Pelv CT showed small ventral hernia without signs of obstruction - Bleeding scan negative - Cont NS at 100 cc/hr - Protonix IV BID - CLD - GI consulted - Surgery consulted Renal: - Hypokalemic, repleted IVPB - Maintain euvolemia - Monitor electrolytes and replete as needed Heme: - Hgb stable - s/p 4 unit pRBC, 3 units FFP, 1 unit platelets - Cont to monitor - SCD's for DVT ppx Endo: - Maintain euglycemia Patient discussed in detail with Dr. Arita. Phillip Wagner DO PGY2 <Bud Arita - Last Filed: 10/30/18 12:35> CCU Objective - Vital Signs / Intake & Output Vital Signs (Last 4 hours): Vital Signs Pulse Resp BP Pulse Ox 10/30/18 12:02 74 25 H 86/51 L 95 10/30/18 12:00 77 24 95 10/30/18 11:50 79 24 92 L 10/30/18 11:40 72 14 96 10/30/18 11:30 70 22 96 10/30/18 11:20 69 22 96 10/30/18 11:10 71 97 10/30/18 11:00 68 25 H 80/47 L 98 10/30/18 10:50 76 95 10/30/18 10:40 65 37 H 96 10/30/18 10:30 66 15 97 10/30/18 10:20 63 19 98 03/01/19 10:10 62 22 94 L 10/30/18 10:01 69 13 115/59 L 96 10/30/18 10:00 64 15 96 10/30/18 09:50 64 19 96 10/30/18 09:40 61 21 96 10/30/18 09:30 70 17 97 10/30/18 09:24 96/45 L 10/30/18 09:23 72 17 94 L 10/30/18 09:20 73 17 96 10/30/18 09:10 77 18 89 L 10/30/18 09:00 77 21 89 L 10/30/18 08:50 83 18 85 L 10/30/18 08:40 79 18 90 L 10/30/18 08:30 61 37 H 93 L Intake and Output (Last 8hrs): Intake & Output 10/29/18 10/30/18 10/30/18 22:59 06:59 14:59 Intake Total 2750 2700 Output Total 2000 1600 Balance 750 1100 Intake: IV 1000 2500 Right Femoral 2500 Right Wrist 1000 Oral 1200 200 Blood Product 550 Output: Urine 1999 1600 Urethral ([place]) 1999 1600 Other: # Bowel Movements 3 - Medications Active Medications: Active Medications Generic Name Dose Route Start Last Admin Trade Name Freq PRN Reason Stop Dose Admin Acetaminophen 650 mg 10/29/18 08:34 10/30/18 02:11 Tylenol 325mg Tab PO 650 mg Q6H PRN Administration Pain, Mild (1-3) Alprazolam 0.25 mg 10/28/18 22:00 10/29/18 21:33 Xanax PO 11/04/18 22:01 0.25 mg HS CAREY Administration Protocol Atorvastatin Calcium 10 mg 10/29/18 17:00 Lipitor PO DIN CAREY Potassium Chloride 20 meq in 100 mls @ 50 mls/hr 10/30/18 09:00 10/30/18 09:41 Potassium Chloride 20 Meq/100 Ml IVPB 10/30/18 12:59 50 mls/hr Q2H CAREY Administration Sodium Chloride 1,000 mls @ 100 mls/hr 10/30/18 08:00 10/30/18 08:00 Sodium Chloride 0.9% IV 100 mls/hr .Q10H CAREY Administration Breo Ellipta 100-25 1 inhaler 10/29/18 10:00 Mcg Inh (Home Med) INH DAILY CAREY Pantoprazole Sodium 40 mg 10/28/18 12:30 10/30/18 09:42 Protonix Inj IVP 40 mg Q12 CAREY Administration Sodium Chloride 0 ml 10/30/18 08:59 [place] Nasal Topaz NS PRN PRN Nasal congestion - Patient Studies Lab Studies: Microbiology Studies 10/29/18 00:01 MRSA Culture (Admit) - Final Nose MRSA NOT DETECTED Lab Studies 10/30/18 10/30/18 10/30/18 Range/Units 05:30 05:30 00:10 WBC 6.2 (4.5-11.0) 10^3/uL RBC 2.88 L (3.5-6.1) 10^6/uL Hgb 8.4 L (12.0-16.0) g/dL Hct 25.2 L (36.0-48.0) % MCV 87.5 (80.0-105.0) fl MCH 29.2 (25.0-35.0) pg MCHC 33.3 (31.0-37.0) g/dl RDW 15.1 H (11.5-14.5) % Plt Count 100 L (120.0-450.0) 10^3/uL MPV 10.5 (7.0-11.0) fl Neut % (Auto) (50.0-68.0) % Lymph % (Auto) (22.0-35.0) % [place] % (Auto) (1.0-6.0) % Eos % (Auto) (1.5-5.0) % Baso % (Auto) (0.0-3.0) % Lymph # (Auto) (1.2-3.4) [place] # (Auto) (0.1-0.6) Eos # (Auto) (0.0-0.7) Baso # (Auto) (0.0-2.0) K/mm3 Absolute Neuts (auto) (1.4-6.5) PT (9.4-12.5) SECONDS INR APTT (26.9-38.3) Seconds Sodium 143 (132-148) mmol/L Potassium 3.0 L (3.6-5.0) mmol/L Chloride 114 H (98-107) mmol/L Carbon Dioxide 26 (21-33) mmol/L Anion Gap 6 L (10-20) BUN 5 L (7-21) mg/dL Creatinine 0.8 (0.7-1.2) mg/dl Est GFR ( Amer) > 60 Est GFR (Non-Af Amer) > 60 Random Glucose 77 (70-110) mg/dL Calcium 7.3 L (8.4-10.5) mg/dL Phosphorus 2.5 (2.5-4.5) mg/dL Magnesium 1.9 (1.7-2.2) mg/dL Total Bilirubin 0.2 (0.2-1.3) mg/dL AST 20 (14-36) U/L ALT 7 (7-56) U/L Alkaline Phosphatase 47 (38-126) U/L Troponin I 0.04 D 0.02 D ng/mL Total Protein 5.3 L (5.8-8.3) g/dL Albumin 2.7 L (3.0-4.8) g/dL Globulin 2.6 gm/dL Albumin/Globulin Ratio 1.0 L (1.1-1.8) Blood Type Antibody Screen Crossmatch BBK History Checked 10/30/18 10/29/18 10/29/18 Range/Units 00:10 21:44 14:00 WBC 5.6 6.6 (4.5-11.0) 10^3/uL RBC 2.92 L 3.06 L (3.5-6.1) 10^6/uL Hgb 8.4 L 8.7 L (12.0-16.0) g/dL Hct 25.2 L 26.3 L (36.0-48.0) % MCV 86.3 85.9 (80.0-105.0) fl MCH 28.8 28.4 (25.0-35.0) pg MCHC 33.3 33.1 (31.0-37.0) g/dl RDW 14.9 H 14.9 H (11.5-14.5) % Plt Count 110 L 122 (120.0-450.0) 10^3/uL MPV 9.9 10.4 (7.0-11.0) fl Neut % (Auto) 66.7 (50.0-68.0) % Lymph % (Auto) 24.6 (22.0-35.0) % [place] % (Auto) 6.9 H (1.0-6.0) % Eos % (Auto) 1.4 L (1.5-5.0) % Baso % (Auto) 0.4 (0.0-3.0) % Lymph # (Auto) 1.4 (1.2-3.4) [place] # (Auto) 0.4 (0.1-0.6) Eos # (Auto) 0.1 (0.0-0.7) Baso # (Auto) 0.02 (0.0-2.0) K/mm3 Absolute Neuts (auto) 3.76 (1.4-6.5) PT 12.6 H (9.4-12.5) SECONDS INR 1.14 APTT 26.3 L (26.9-38.3) Seconds Sodium (132-148) mmol/L Potassium (3.6-5.0) mmol/L Chloride (98-107) mmol/L Carbon Dioxide (21-33) mmol/L Anion Gap (10-20) BUN (7-21) mg/dL Creatinine (0.7-1.2) mg/dl Est GFR ( Amer) Est GFR (Non-Af Amer) Random Glucose (70-110) mg/dL Calcium (8.4-10.5) mg/dL Phosphorus (2.5-4.5) mg/dL Magnesium (1.7-2.2) mg/dL Total Bilirubin (0.2-1.3) mg/dL AST (14-36) U/L ALT (7-56) U/L Alkaline Phosphatase (38-126) U/L Troponin I ng/mL Total Protein (5.8-8.3) g/dL Albumin (3.0-4.8) g/dL Globulin gm/dL Albumin/Globulin Ratio (1.1-1.8) Blood Type Antibody Screen Crossmatch BBK History Checked 10/29/18 10/28/18 Range/Units 14:00 08:23 WBC 7.3 (4.5-11.0) 10^3/uL RBC 3.30 L (3.5-6.1) 10^6/uL Hgb 9.4 L (12.0-16.0) g/dL Hct 28.2 L (36.0-48.0) % MCV 85.5 (80.0-105.0) fl MCH 28.5 (25.0-35.0) pg MCHC 33.3 (31.0-37.0) g/dl RDW 14.5 (11.5-14.5) % Plt Count 128 (120.0-450.0) 10^3/uL MPV 10.0 (7.0-11.0) fl Neut % (Auto) (50.0-68.0) % Lymph % (Auto) (22.0-35.0) % [place] % (Auto) (1.0-6.0) % Eos % (Auto) (1.5-5.0) % Baso % (Auto) (0.0-3.0) % Lymph # (Auto) (1.2-3.4) [place] # (Auto) (0.1-0.6) Eos # (Auto) (0.0-0.7) Baso # (Auto) (0.0-2.0) K/mm3 Absolute Neuts (auto) (1.4-6.5) PT (9.4-12.5) SECONDS INR APTT (26.9-38.3) Seconds Sodium (132-148) mmol/L Potassium (3.6-5.0) mmol/L Chloride (98-107) mmol/L Carbon Dioxide (21-33) mmol/L Anion Gap (10-20) BUN (7-21) mg/dL Creatinine (0.7-1.2) mg/dl Est GFR ( Amer) Est GFR (Non-Af Amer) Random Glucose (70-110) mg/dL Calcium (8.4-10.5) mg/dL Phosphorus (2.5-4.5) mg/dL Magnesium (1.7-2.2) mg/dL Total Bilirubin (0.2-1.3) mg/dL AST (14-36) U/L ALT (7-56) U/L Alkaline Phosphatase (38-126) U/L Troponin I ng/mL Total Protein (5.8-8.3) g/dL Albumin (3.0-4.8) g/dL Globulin gm/dL Albumin/Globulin Ratio (1.1-1.8) Blood Type A POSITIVE Antibody Screen Negative Crossmatch See Detail BBK History Checked Patient has bt Laboratory Results - last 24 hr 10/28/18 10/29/18 10/29/18 08:23 14:00 14:00 WBC 7.3 RBC 3.30 L Hgb 9.4 L Hct 28.2 L MCV 85.5 MCH 28.5 MCHC 33.3 RDW 14.5 Plt Count 128 MPV 10.0 Neut % (Auto) Lymph % (Auto) [place] % (Auto) Eos % (Auto) Baso % (Auto) Lymph # (Auto) [place] # (Auto) Eos # (Auto) Baso # (Auto) Absolute Neuts (auto) PT 12.6 H INR 1.14 APTT 26.3 L Sodium Potassium Chloride Carbon Dioxide Anion Gap BUN Creatinine Est GFR ( Amer) Est GFR (Non-Af Amer) Random Glucose Calcium Phosphorus Magnesium Total Bilirubin AST ALT Alkaline Phosphatase Troponin I Total Protein Albumin Globulin Albumin/Globulin Ratio Blood Type A POSITIVE Antibody Screen Negative Crossmatch See Detail BBK History Checked Patient has bt 10/29/18 10/30/18 10/30/18 21:44 00:10 00:10 WBC 6.6 5.6 RBC 3.06 L 2.92 L Hgb 8.7 L 8.4 L Hct 26.3 L 25.2 L MCV 85.9 86.3 MCH 28.4 28.8 MCHC 33.1 33.3 RDW 14.9 H 14.9 H Plt Count 122 110 L MPV 10.4 9.9 Neut % (Auto) 66.7 Lymph % (Auto) 24.6 [place] % (Auto) 6.9 H Eos % (Auto) 1.4 L Baso % (Auto) 0.4 Lymph # (Auto) 1.4 [place] # (Auto) 0.4 Eos # (Auto) 0.1 Baso # (Auto) 0.02 Absolute Neuts (auto) 3.76 PT INR APTT Sodium Potassium Chloride Carbon Dioxide Anion Gap BUN Creatinine Est GFR ( Amer) Est GFR (Non-Af Amer) Random Glucose Calcium Phosphorus Magnesium Total Bilirubin AST ALT Alkaline Phosphatase Troponin I 0.02 D Total Protein Albumin Globulin Albumin/Globulin Ratio Blood Type Antibody Screen Crossmatch BBK History Checked 10/30/18 10/30/18 05:30 05:30 WBC 6.2 RBC 2.88 L Hgb 8.4 L Hct 25.2 L MCV 87.5 MCH 29.2 MCHC 33.3 RDW 15.1 H Plt Count 100 L MPV 10.5 Neut % (Auto) Lymph % (Auto) [place] % (Auto) Eos % (Auto) Baso % (Auto) Lymph # (Auto) [place] # (Auto) Eos # (Auto) Baso # (Auto) Absolute Neuts (auto) PT INR APTT Sodium 143 Potassium 3.0 L Chloride 114 H Carbon Dioxide 26 Anion Gap 6 L BUN 5 L Creatinine 0.8 Est GFR ( Amer) > 60 Est GFR (Non-Af Amer) > 60 Random Glucose 77 Calcium 7.3 L Phosphorus 2.5 Magnesium 1.9 Total Bilirubin 0.2 AST 20 ALT 7 Alkaline Phosphatase 47 Troponin I 0.04 D Total Protein 5.3 L Albumin 2.7 L Globulin 2.6 Albumin/Globulin Ratio 1.0 L Blood Type Antibody Screen Crossmatch BBK History Checked EKG/Cardiology Studies: Cardiology / EKG Studies 10/30/18 00:25 ELECTROCARDIOGRAM Stat Comment: hypotension Reason For Exam: hypotension 10/30/18 06:25 EKG [ELECTROCARDIOGRAM] Q6H Comment: Reason For Exam: hypotension 10/30/18 12:25 EKG [ELECTROCARDIOGRAM] Q6H Comment: Reason For Exam: hypotension Critical Care Progress Note - Nutrition Nutrition: Nutrition Category Date Time Status Liquid Diet [DIET] Diets 10/30/18 Breakfast Ordered Assessment/Plan - Assessment and Plan (Free Text) Plan: Patient seen and examined on rounds with resident, agree with note with following additiotns/exceptions: Patient is 73 yo F with PMH of HLD, GI bleed, Breast CA (Remission), Valvular Heart Disease, Diverticulosis, Diverticulitis, Pancreatic Cyst [place] [facility] [place] Pt had negative bleeding scan. Then had EGD, normal, and Colonoscopy which showed hemorrhoids. and diffuse diverticulosis, no active bleeding. HH has been stable Currently afebrile, HD stable, comfortable in NAD, at baseline BP, BP 101/60. Doing well Tolerated diet GIB HLD Diverticulosis Anemia Recommend: - supp o2 as needed, duonebs PRN - NO ID issues - IVF, NS 100cc/hr - maintain 2 large bore PIVs - follow up GI - DC TLC - advance diet - HOld BP meds - GI ppx, PPI - DVT ppx, SCDs - Transfer to med surg
--- NOTE | 2018-10-30 10:48 | CP.PCM.PN ---
<Angel Alfaro - Last Filed: 10/30/18 10:48> Subjective - Date & Time of Evaluation Date of Evaluation: 10/30/18 Time of Evaluation: 07:30 - Subjective Subjective: PGY5 GI Follow Up Note Pt seen and examined bedside Denies any abd pain No overnight bleeding ROS: 12 point ROS conducted, neg other than above Objective - Vital Signs/Intake and Output Vital Signs (last 24 hours): Temp Pulse Resp BP Pulse Ox 97.6 F 64 20 108/54 L 95 10/30/18 08:00 10/30/18 08:00 10/30/18 08:00 10/30/18 08:00 10/30/18 08:00 Intake and Output: 10/30/18 10/30/18 06:59 18:59 Intake Total 2700 Output Total 1600 Balance 1100 - Medications Medications: Current Medications Acetaminophen (Tylenol 325mg Tab) 650 mg PO Q6H PRN PRN Reason: Pain, Mild (1-3) Last Admin: 10/30/18 02:11 Dose: 650 mg Alprazolam (Xanax) 0.25 mg PO HS [facility]; Protocol Stop: 11/04/18 22:01 Last Admin: 10/29/18 21:33 Dose: 0.25 mg Atorvastatin Calcium (Lipitor) 10 mg PO DIN [facility] Potassium Chloride (Potassium Chloride 20 Meq/100 Ml) 20 meq in 100 mls @ 50 mls/hr IVPB Q2H [facility] Stop: 10/30/18 12:59 Last Admin: 10/30/18 09:41 Dose: 50 mls/hr Sodium Chloride (Sodium Chloride 0.9%) 1,000 mls @ 100 mls/hr IV .Q10H [facility] Last Admin: 10/30/18 08:00 Dose: 100 mls/hr Breo Ellipta 100-25 (Mcg Inh (Home Med)) 1 inhaler INH DAILY [facility] Pantoprazole Sodium (Protonix Inj) 40 mg IVP Q12 [facility] Last Admin: 10/30/18 09:42 Dose: 40 mg Sodium Chloride ([place] Nasal [place]) 0 ml NS PRN PRN PRN Reason: Nasal congestion - Labs Labs: 10/30/18 05:30 10/30/18 05:30 PT 12.6 SECONDS (9.4-12.5) H 10/29/18 14:00 INR 1.14 10/29/18 14:00 APTT 26.3 Seconds (26.9-38.3) L 10/29/18 14:00 - Constitutional Appears: Non-toxic, No Acute Distress - Head Exam Head Exam: ATRAUMATIC, NORMOCEPHALIC - Eye Exam Eye Exam: Normal appearance - ENT Exam ENT Exam: Mucous Membranes Moist, Normal Exam - Neck Exam Neck Exam: Normal Inspection - Respiratory Exam Respiratory Exam: Clear to Ausculation Bilateral, NORMAL BREATHING PATTERN. absent: Rales, Rhonchi, Wheezes - Cardiovascular Exam Cardiovascular Exam: REGULAR RHYTHM, +S1, +S2 - GI/Abdominal Exam GI & Abdominal Exam: Soft, Normal Bowel Sounds. absent: Firm, Guarding, Rigid, Tenderness, Hypoactive Bowel Sounds, Organomegaly, Pulsatile Mass, Rebound - Extremities Exam Extremities Exam: absent: Joint Swelling, Pedal Edema - Neurological Exam Neurological Exam: Alert, Awake, Oriented x3 - Psychiatric Exam Psychiatric exam: Normal Affect, Normal Mood - Skin Skin Exam: Dry, Intact, Normal Color, Warm Assessment and Plan - Assessment and Plan (Free Text) Assessment: Paola Morgan is a 73M w/ hx of HLD, GI bleed, Breast CA (Remission), Valvular Heart Disease, Diverticulosis, Diverticulitis, Pancreatic Cyst who presents to the ER with risk bright blood per rectum/ S/p EGD and colonoscopy 10/29/2018 severe diverticulosis and gastritis in the greater gastric curvature; no obvious source of bleeding Hematochezia, etiology likely diverticular bleed Anemia 2/2 above Hx of diverticulosis Hx of diverticular bleed hx of bartolome colectomy Pancreatic cyst Plan: -continue to monitor h/h q 6 -maintain x2 IV lines -Continue IV fluids -Continue Protonix 40mg PO daily -Bleeding scan Neg -surgery on board -Keep Hgb >9, transfuse if needed -if pt starts to bleed again, can consider IR and surgical approach D/W Dr. Kam <Kain Kam V - Last Filed: 10/31/18 02:07> Objective - Vital Signs/Intake and Output Vital Signs (last 24 hours): Temp Pulse Resp BP Pulse Ox 98.8 F 60 18 97/59 L 96 10/30/18 14:00 10/30/18 14:00 10/30/18 14:00 10/30/18 14:00 10/30/18 14:00 Intake and Output: 10/30/18 10/31/18 18:59 06:59 Intake Total 300 Output Total 500 Balance -200 - Medications Medications: Current Medications Acetaminophen (Tylenol 325mg Tab) 650 mg PO Q6H PRN PRN Reason: Pain, Mild (1-3) Last Admin: 10/30/18 02:11 Dose: 650 mg Alprazolam (Xanax) 0.25 mg PO HS [facility]; Protocol Stop: 11/04/18 22:01 Last Admin: 10/30/18 21:36 Dose: 0.25 mg Atorvastatin Calcium (Lipitor) 10 mg PO DIN [facility] Last Admin: 10/30/18 17:39 Dose: Not Given Sodium Chloride (Sodium Chloride 0.9%) 1,000 mls @ 100 mls/hr IV .Q10H [facility] Last Admin: 10/30/18 19:46 Dose: 100 mls/hr Breo Ellipta 100-25 ([facility]g Inh (Home Med)) 1 inhaler INH DAILY [facility] Pantoprazole Sodium (Protonix Inj) 40 mg IVP Q12 [facility] Last Admin: 10/30/18 21:36 Dose: 40 mg Sodium Chloride ([place] Nasal [place]) 0 ml NS PRN PRN PRN Reason: Nasal congestion - Labs Labs: 10/30/18 20:20 10/30/18 05:30 PT 12.6 SECONDS (9.4-12.5) H 10/29/18 14:00 INR 1.14 10/29/18 14:00 APTT 26.3 Seconds (26.9-38.3) L 10/29/18 14:00 Attending/Attestation - Attestation I have personally seen and examined this patient.: Yes I have fully participated in the care of the patient.: Yes I have reviewed all pertinent clinical information, including history, physical exam and plan: Yes Notes (Text): p 10/31/18 02:07
--- NOTE | 2018-10-30 10:54 | CARD ---
APPROVED REPORT Date of service: 10/30/2018 EKG Measurement Heart [id number] PA [id number] <Conclusion> Sinus rhythm with premature atrial complexes with aberrant conduction Low voltage QRS Left anterior fascicular block N0n Specific ST=T Changes. Clockwise Rotation.
--- NOTE | 2018-10-30 14:33 | CP.PCM.PN ---
Subjective - Date & Time of Evaluation Date of Evaluation: 10/30/18 Time of Evaluation: 06:40 - Subjective Subjective: Patient seen and examined this morning. No acute events over night. Denies nausea/vomiting. Denies bloody bowel movements. No abdominal pain. Objective - Vital Signs/Intake and Output Vital Signs (last 24 hours): Temp Pulse Resp BP Pulse Ox 97.6 F 74 25 H 86/51 L 95 10/30/18 08:00 10/30/18 12:02 10/30/18 12:02 10/30/18 12:02 10/30/18 12:02 Intake and Output: 10/30/18 10/30/18 06:59 18:59 Intake Total 2700 Output Total 1600 Balance 1100 - Medications Medications: Current Medications Acetaminophen (Tylenol 325mg Tab) 650 mg PO Q6H PRN PRN Reason: Pain, Mild (1-3) Last Admin: 10/30/18 02:11 Dose: 650 mg Alprazolam (Xanax) 0.25 mg PO HS [facility]; Protocol Stop: 11/04/18 22:01 Last Admin: 10/29/18 21:33 Dose: 0.25 mg Atorvastatin Calcium (Lipitor) 10 mg PO DIN [facility] Sodium Chloride (Sodium Chloride 0.9%) 1,000 mls @ 100 mls/hr IV .Q10H [facility] Last Admin: 10/30/18 08:00 Dose: 100 mls/hr Breo Ellipta 100-25 (Mcg Inh (Home Med)) 1 inhaler INH DAILY [facility] Pantoprazole Sodium (Protonix Inj) 40 mg IVP Q12 [facility] Last Admin: 10/30/18 09:42 Dose: 40 mg Sodium Chloride ([place] Nasal [place]) 0 ml NS PRN PRN PRN Reason: Nasal congestion - Labs Labs: 10/30/18 05:30 10/30/18 05:30 PT 12.6 SECONDS (9.4-12.5) H 10/29/18 14:00 INR 1.14 10/29/18 14:00 APTT 26.3 Seconds (26.9-38.3) L 10/29/18 14:00 - Constitutional Appears: Non-toxic, No Acute Distress - Head Exam Head Exam: NORMOCEPHALIC - Eye Exam Eye Exam: EOMI, Normal appearance Pupil Exam: NORMAL ACCOMODATION - ENT Exam ENT Exam: Mucous Membranes Moist - Respiratory Exam Respiratory Exam: NORMAL BREATHING PATTERN - Cardiovascular Exam Cardiovascular Exam: +S1, +S2 - GI/Abdominal Exam GI & Abdominal Exam: Soft. absent: Distended, Guarding, Rigid, Tenderness - Neurological Exam Neurological Exam: Alert, Awake, Oriented x3 - Psychiatric Exam Psychiatric exam: Normal Mood - Skin Skin Exam: Dry, Intact, Warm Assessment and Plan - Assessment and Plan (Free Text) Assessment: 73 yo female w/ PMH HLD, GI bleed, Breast CA (Remission), Valvular Heart Disease, Diverticulosis, Diverticulitis, Pancreatic Cyst admitted for active rectal bleeding. Plan: Hgb stable at 8.4 CBC q6H; hemodynamically stable CT abdomen shows no active bleed; Bleeding scan shows no source of active bleed Adv to CLD C/w medical managment Replete electrolytes prn Will continue to follow Marco PGY3 D/w Dr. Osuna
--- NOTE | 2018-10-30 16:11 | CARD ---
APPROVED REPORT Date of service: 10/30/2018 EKG Measurement Heart [id number] <Conclusion> Normal sinus rhythm Left axis deviation Low voltage QRS Inferior infarct, age undetermined Cannot rule out Anterior infarct, age undetermined T wave abnormality, consider lateral ischemia Abnormal ECG
--- NOTE | 2018-10-30 16:17 | CARD ---
APPROVED REPORT Date of service: 10/30/2018 EKG Measurement Heart [id number] <Conclusion> Normal sinus rhythm Left anterior fascicular block Cannot rule out Inferior infarct (masked by fascicular block?), age undetermined Cannot rule out Anterior infarct, age undetermined Abnormal ECG
[2018-10-30 20:40] LABS: HEMOGLOBIN 8.8 g/dL (12.0-16.0); MEAN CELL VOLUME 87.7 fl (80.0-105.0); MEAN CORPUSCULAR HEMOGLOBIN 28.6 pg (25.0-35.0); MEAN CORPUSCULAR HGB CONC 32.6 g/dl (31.0-37.0); MEAN PLATELET VOLUME 9.6 fl (7.0-11.0); RBC 3.08 10^6/uL (3.5-6.1); RED CELL DISTRIBUTION WIDTH 15.1 % (11.5-14.5); WHITE BLOOD COUNT 7.1 10^3/uL (4.5-11.0)
[2018-10-31 08:17] LABS: BASO # 0.02 K/mm3 (0.0-2.0); BASO % 0.4 % (0.0-3.0); EOS # 0.1 (0.0-0.7); EOS % 2.7 % (1.5-5.0); HEMOGLOBIN 8.5 g/dL (12.0-16.0); LYMPH % 19.3 % (22.0-35.0); MEAN CELL VOLUME 88.6 fl (80.0-105.0); MEAN CORPUSCULAR HEMOGLOBIN 28.6 pg (25.0-35.0); MEAN CORPUSCULAR HGB CONC 32.3 g/dl (31.0-37.0); MEAN PLATELET VOLUME 10.1 fl (7.0-11.0); MONO # 0.4 (0.1-0.6); MONO % 8.3 % (1.0-6.0); RBC 2.97 10^6/uL (3.5-6.1); RED CELL DISTRIBUTION WIDTH 15.1 % (11.5-14.5); WHITE BLOOD COUNT 5.3 10^3/uL (4.5-11.0)
[2018-10-31 08:35] LABS: ALT/SGPT 15 U/L (7-56); AST/SGOT 24 U/L (14-36); BLOOD UREA NITROGEN 3 mg/dL (7-21); CALCIUM 7.9 mg/dL (8.4-10.5); GFR NON-AFRICAN AMERICAN > 60
--- NOTE | 2018-10-31 09:51 | CP.PCM.PN ---
Subjective - Date & Time of Evaluation Date of Evaluation: 10/31/18 Time of Evaluation: 07:00 - Subjective Subjective: Patient seen and examined. No events over night. No bloody BM episodes. Tolerated clears. Objective - Vital Signs/Intake and Output Vital Signs (last 24 hours): Temp Pulse Resp BP Pulse Ox 98.4 F 64 18 103/56 L 95 10/31/18 06:00 10/31/18 06:00 10/31/18 06:00 10/31/18 06:00 10/31/18 06:00 Intake and Output: 10/31/18 10/31/18 06:59 18:59 Intake Total 1500 Output Total 500 Balance 1000 - Medications Medications: Current Medications Acetaminophen (Tylenol 325mg Tab) 650 mg PO Q6H PRN PRN Reason: Pain, Mild (1-3) Last Admin: 10/30/18 02:11 Dose: 650 mg Alprazolam (Xanax) 0.25 mg PO HS [facility]; Protocol Stop: 11/04/18 22:01 Last Admin: 10/30/18 21:36 Dose: 0.25 mg Atorvastatin Calcium (Lipitor) 10 mg PO DIN [facility] Last Admin: 10/30/18 17:39 Dose: Not Given Sodium Chloride (Sodium Chloride 0.9%) 1,000 mls @ 100 mls/hr IV .Q10H [facility] Last Admin: 10/30/18 19:46 Dose: 100 mls/hr Potassium Chloride (Potassium Chloride 20 Meq/100 Ml) 20 meq in 100 mls @ 50 mls/hr IVPB ONCE ONE Stop: 10/31/18 10:43 Breo Ellipta 100-25 (Mcg Inh (Home Med)) 1 inhaler INH DAILY [facility] Pantoprazole Sodium (Protonix Inj) 40 mg IVP Q12 [facility] Last Admin: 10/30/18 21:36 Dose: 40 mg Sodium Chloride ([place] Nasal [place]) 0 ml NS PRN PRN PRN Reason: Nasal congestion - Labs Labs: 10/31/18 07:30 10/31/18 07:30 PT 12.6 SECONDS (9.4-12.5) H 10/29/18 14:00 INR 1.14 10/29/18 14:00 APTT 26.3 Seconds (26.9-38.3) L 10/29/18 14:00 - Constitutional Appears: No Acute Distress - Head Exam Head Exam: NORMOCEPHALIC - Eye Exam Eye Exam: Normal appearance - ENT Exam ENT Exam: Mucous Membranes Moist - Respiratory Exam Respiratory Exam: NORMAL BREATHING PATTERN - Cardiovascular Exam Cardiovascular Exam: +S1, +S2 - GI/Abdominal Exam GI & Abdominal Exam: Soft. absent: Distended, Guarding, Tenderness - Neurological Exam Neurological Exam: Alert, Awake, Oriented x3 - Psychiatric Exam Psychiatric exam: Normal Mood - Skin Skin Exam: Dry, Intact, Warm Assessment and Plan - Assessment and Plan (Free Text) Assessment: 73 yo female w/ PMH HLD, GI bleed, Breast CA (Remission), Valvular Heart Disease, Diverticulosis, Diverticulitis, Pancreatic Cyst admitted for active rectal bleedingwhich has resolved. Plan: Hgb stable at 8.[address] abdomen shows no active bleed; Bleeding scan shows no source of active bleed Adv to full liquid diet, if tolerates ok to adv to soft diet by dinner C/w medical managment Replete electrolytes prn Will continue to follow Marco PGY3 D/w Dr. Osuna
[2018-10-31] MEDS: BREO ELLIPTA INH SCH (11:15)
--- NOTE | 2018-10-31 12:27 | CP.PCM.PN ---
<Angel Alfaro - Last Filed: 10/31/18 12:27> Subjective - Date & Time of Evaluation Date of Evaluation: 10/31/18 Time of Evaluation: 09:20 - Subjective Subjective: PGY5 GI follow-up Pt seen and examined bedside Denies ay abd pain no additional GI bleed ROS:12 point ROS conducted, neg other than above Objective - Vital Signs/Intake and Output Vital Signs (last 24 hours): Temp Pulse Resp BP Pulse Ox 98.4 F 64 18 103/56 L 95 10/31/18 06:00 10/31/18 06:00 10/31/18 06:00 10/31/18 06:00 10/31/18 06:00 Intake and Output: 10/31/18 10/31/18 06:59 18:59 Intake Total 1500 Output Total 500 Balance 1000 - Medications Medications: Current Medications Acetaminophen (Tylenol 325mg Tab) 650 mg PO Q6H PRN PRN Reason: Pain, Mild (1-3) Last Admin: 10/30/18 02:11 Dose: 650 mg Alprazolam (Xanax) 0.25 mg PO HS [facility]; Protocol Stop: 11/04/18 22:01 Last Admin: 10/30/18 21:36 Dose: 0.25 mg Atorvastatin Calcium (Lipitor) 10 mg PO DIN [facility] Last Admin: 10/30/18 17:39 Dose: Not Given Sodium Chloride (Sodium Chloride 0.9%) 1,000 mls @ 100 mls/hr IV .Q10H [facility] Last Admin: 10/30/18 19:46 Dose: 100 mls/hr Breo Ellipta 100-25 (Mcg Inh (Home Med)) 1 inhaler INH DAILY [facility] Pantoprazole Sodium (Protonix Inj) 40 mg IVP Q12 [facility] Last Admin: 10/31/18 10:02 Dose: 40 mg Sodium Chloride ([place] Nasal [place]) 0 ml NS PRN PRN PRN Reason: Nasal congestion - Labs Labs: 10/31/18 07:30 10/31/18 07:30 PT 12.6 SECONDS (9.4-12.5) H 10/29/18 14:00 INR 1.14 10/29/18 14:00 APTT 26.3 Seconds (26.9-38.3) L 10/29/18 14:00 - Constitutional Appears: Well, No Acute Distress - Head Exam Head Exam: ATRAUMATIC, NORMOCEPHALIC - Eye Exam Eye Exam: Normal appearance - ENT Exam ENT Exam: Mucous Membranes Moist, Normal Exam - Neck Exam Neck Exam: Normal Inspection - Respiratory Exam Respiratory Exam: Clear to Ausculation Bilateral, NORMAL BREATHING PATTERN. absent: Rales, Rhonchi, Wheezes, Respiratory Distress - Cardiovascular Exam Cardiovascular Exam: REGULAR RHYTHM, +S1, +S2 - GI/Abdominal Exam GI & Abdominal Exam: Soft, Normal Bowel Sounds. absent: Distended, Firm, Rigid, Tenderness, Mass, Organomegaly, Rebound - Extremities Exam Extremities Exam: absent: Joint Swelling, Pedal Edema - Neurological Exam Neurological Exam: Alert, Awake, Oriented x3 - Psychiatric Exam Psychiatric exam: Normal Affect, Normal Mood - Skin Skin Exam: Dry, Intact, Normal Color, Warm Assessment and Plan - Assessment and Plan (Free Text) Assessment: Paola Morgan is a 73M w/ hx of HLD, GI bleed, Breast CA (Remission), Valvular Heart Disease, Diverticulosis, Diverticulitis, Pancreatic Cyst who presents to the ER with risk bright blood per rectum/ S/p EGD and colonoscopy 10/29/2018 severe diverticulosis and gastritis in the greater gastric curvature; no obvious source of bleeding Hematochezia, etiology likely diverticular bleed Anemia 2/2 above Hx of diverticulosis Hx of diverticular bleed hx of bartolome colectomy Pancreatic cyst Plan: -continue to monitor h/h q 12 -maintain x2 IV lines -Continue IV fluids -Continue Protonix 40mg PO daily -Bleeding scan Neg -surgery on board -Keep Hgb >9, transfuse if needed -if pt starts to bleed again, can consider IR and surgical approach advance diet as per surgery D/W Dr. Kam <Kain Kam V - Last Filed: 10/31/18 16:31> Objective - Vital Signs/Intake and Output Vital Signs (last 24 hours): Temp Pulse Resp BP Pulse Ox 98.4 F 64 18 103/56 L 95 10/31/18 06:00 10/31/18 06:00 10/31/18 06:00 10/31/18 06:00 10/31/18 06:00 Intake and Output: 10/31/18 10/31/18 06:59 18:59 Intake Total 1500 Output Total 500 Balance 1000 - Medications Medications: Current Medications Acetaminophen (Tylenol 325mg Tab) 650 mg PO Q6H PRN PRN Reason: Pain, Mild (1-3) Last Admin: 10/30/18 02:11 Dose: 650 mg Alprazolam (Xanax) 0.25 mg PO HS [facility]; Protocol Stop: 11/04/18 22:01 Last Admin: 10/30/18 21:36 Dose: 0.25 mg Atorvastatin Calcium (Lipitor) 10 mg PO DIN [facility] Last Admin: 10/30/18 17:39 Dose: Not Given Breo Ellipta 100-25 (Mcg Inh (Home Med)) 1 inhaler INH DAILY [facility] Pantoprazole Sodium (Protonix Inj) 40 mg IVP Q12 [facility] Last Admin: 10/31/18 10:02 Dose: 40 mg Sodium Chloride ([place] Nasal [place]) 0 ml NS PRN PRN PRN Reason: Nasal congestion - Labs Labs: 10/31/18 07:30 10/31/18 07:30 PT 12.6 SECONDS (9.4-12.5) H 10/29/18 14:00 INR 1.14 10/29/18 14:00 APTT 26.3 Seconds (26.9-38.3) L 10/29/18 14:00 Attending/Attestation - Attestation I have personally seen and examined this patient.: Yes I have fully participated in the care of the patient.: Yes I have reviewed all pertinent clinical information, including history, physical exam and plan: Yes Notes (Text): This is an addendum to GI progress report dictated by the GI Fellow. The patient was seen and examined earlier. Medical records, lab studies, imagings were reviewed. Last 24 hours events reviewed. Agreed with the above treatment plan as outlined in GI Fellow 's notes with the addition of the following Patient did not have any further episodes of bleeding Tolerating liquid diet Advance to soft diet Follow-up hemoglobin hematocrit We will discuss with medical and surgical teams 10/31/18 16:30
--- NOTE | 2018-10-31 15:00 | CP.PCM.PN ---
<Jass Ann - Last Filed: 10/31/18 14:54> Subjective - Date & Time of Evaluation Date of Evaluation: 10/31/18 Time of Evaluation: 14:54 - Subjective Subjective: Jass Ann, PGY-1, Internal Medicine Progress Note for Dr. Ascencio Patient seen and evaluated at bedside. Patient had no acute overnight events. Patient has not had any more bloody bowel movements overnight. Patient denied any symptoms except for neck pain. Patient denied fever, headache, dizziness, chest pain, heart palpitations, shortness of breath, nausea, vomiting, constipation, diarrhea, dysuria, hematuria. 12-point ROS was unremarkable except for what was mentioned above. Objective - Vital Signs/Intake and Output Vital Signs (last 24 hours): Temp Pulse Resp BP Pulse Ox 98.4 F 64 18 103/56 L 95 10/31/18 06:00 10/31/18 06:00 10/31/18 06:00 10/31/18 06:00 10/31/18 06:00 Intake and Output: 10/31/18 10/31/18 06:59 18:59 Intake Total 1500 Output Total 500 Balance 1000 - Medications Medications: Current Medications Acetaminophen (Tylenol 325mg Tab) 650 mg PO Q6H PRN PRN Reason: Pain, Mild (1-3) Last Admin: 10/30/18 02:11 Dose: 650 mg Alprazolam (Xanax) 0.25 mg PO HS [facility]; Protocol Stop: 11/04/18 22:01 Last Admin: 10/30/18 21:36 Dose: 0.25 mg Atorvastatin Calcium (Lipitor) 10 mg PO DIN [facility] Last Admin: 10/30/18 17:39 Dose: Not Given Breo Ellipta 100-25 (Mcg Inh (Home Med)) 1 inhaler INH DAILY [facility] Pantoprazole Sodium (Protonix Inj) 40 mg IVP Q12 [facility] Last Admin: 10/31/18 10:02 Dose: 40 mg Sodium Chloride ([place] Nasal [place]) 0 ml NS PRN PRN PRN Reason: Nasal congestion - Labs Labs: 10/31/18 07:30 10/31/18 07:30 PT 12.6 SECONDS (9.4-12.5) H 10/29/18 14:00 INR 1.14 10/29/18 14:00 APTT 26.3 Seconds (26.9-38.3) L 10/29/18 14:00 - Constitutional Appears: Well, Non-toxic, No Acute Distress - Head Exam Head Exam: ATRAUMATIC, NORMAL INSPECTION, NORMOCEPHALIC - Eye Exam Eye Exam: EOMI, PERRL - ENT Exam ENT Exam: Mucous Membranes Moist - Neck Exam Neck Exam: Full ROM - Respiratory Exam Respiratory Exam: Clear to Ausculation Bilateral, NORMAL BREATHING PATTERN - Cardiovascular Exam Cardiovascular Exam: REGULAR RHYTHM, RRR - GI/Abdominal Exam GI & Abdominal Exam: Soft, Normal Bowel Sounds. absent: Tenderness - Extremities Exam Extremities Exam: Full ROM - Neurological Exam Neurological Exam: Alert, Awake, CN II-XII Intact, Oriented x3 - Skin Skin Exam: Dry, Intact Assessment and Plan - Assessment and Plan (Free Text) Assessment: 73 year old male with past medical history of hyperlipidemia, GI bleed, breast cancer in remission, valvular heart disease, diverticulosis, diverticulitis, and pancreatic cyst presented with multiple episodes of bright red blood of rectum. Patient was admitted for hemorrhagic shock 2/2 to likely lower GI bleed. Plan: Hemorrhagic shock 2/2 to lower GI bleed from diverticulosis -Hemoglobin dropped from 12.7 on admission to 9s. Today's hemoglobin was 8.5. Patient's hemoglobin has been stable without any bloody BMs -Patient's systolic blood pressure has ranged from 80s to 110 over the past 24 hours. Upon presentation, SBP was 147 -Abdominal and Pelvis CT on admission showed no evidence of acute bleed -GI Bleeding scan on this admission showed no evidence of acute bleed -Endoscopy and Colonoscopy on this admission showed gastritis, diverticulosis and end to end colo-colonic anastamosis in the recto-sigmoid colon with healthy appearing mucosa. -IV NS stopped -Diet progressed to heart healthy diet -Continue patient on protonix 40 mg IV Q12 -Follow up CBC at 18:00 -As per surgery, no need for transfusion at this time since patient's hemoglobin has been stable and has had no acute GI bleed Normocytic Anemia -Hgb: 8.5 this morning -Patient is status post 4 U of pRBCs, 3 U of FFP, and 1 U of platelets. -Likely 2/2 to active lower GI bleed Anxiety -Continue with xanax COPD -Continue with home breo ellipta Hypertension -Hold all antihypertensives Hyperlipidemia -Started atorvastatin 10 mg daily GI prophylaxis: protonix 40 mg IV BID DVT prophylaxis: SCD Disposition: Will monitor patient overnight for bloody bowel movements and hemoglobin. If patient's hemoglobin is stable without blood bowel movements and tolerates HHD diet well, patient can be cleared for discharge tomorrow, pending there are no other new or worsening issues. Patient plan discussed with attending. <Gaurang Ascencio - Last Filed: 10/31/18 15:29> Objective - Vital Signs/Intake and Output Vital Signs (last 24 hours): Temp Pulse Resp BP Pulse Ox 98.4 F 64 18 103/56 L 95 10/31/18 06:00 10/31/18 06:00 10/31/18 06:00 10/31/18 06:00 10/31/18 06:00 Intake and Output: 10/31/18 10/31/18 06:59 18:59 Intake Total 1500 Output Total 500 Balance 1000 - Medications Medications: Current Medications Acetaminophen (Tylenol 325mg Tab) 650 mg PO Q6H PRN PRN Reason: Pain, Mild (1-3) Last Admin: 10/30/18 02:11 Dose: 650 mg Alprazolam (Xanax) 0.25 mg PO HS [facility]; Protocol Stop: 11/04/18 22:01 Last Admin: 10/30/18 21:36 Dose: 0.25 mg Atorvastatin Calcium (Lipitor) 10 mg PO DIN [facility] Last Admin: 10/30/18 17:39 Dose: Not Given Breo Ellipta 100-25 (Mcg Inh (Home Med)) 1 inhaler INH DAILY [facility] Pantoprazole Sodium (Protonix Inj) 40 mg IVP Q12 [facility] Last Admin: 10/31/18 10:02 Dose: 40 mg Sodium Chloride ([place] Nasal [place]) 0 ml NS PRN PRN PRN Reason: Nasal congestion - Labs Labs: 10/31/18 07:30 10/31/18 07:30 PT 12.6 SECONDS (9.4-12.5) H 10/29/18 14:00 INR 1.14 10/29/18 14:00 APTT 26.3 Seconds (26.9-38.3) L 10/29/18 14:00 Attending/Attestation - Attestation I have personally seen and examined this patient.: Yes I have fully participated in the care of the patient.: Yes I have reviewed all pertinent clinical information, including history, physical exam and plan: Yes Notes (Text): 10/31/18 15:27 73 year old female with past medical history of GIB, diverticulosis, diverticulitis, s/p left hemicolectomy, valvular heart disease and breast cancer in remission who presented with complaint of bright red blood per rectum, possible diverticular / lower GIB. She received multiple prbc/platelet/FFP transfusions. CT abd/pelvis and NM bleeding scan were negative for acute bleed. EGD/colonoscopy were done on which showed gastritis and diverticulosis. GI and surgery are following. Continue to monitor CBC closely and transfuse as needed. H/H has been relatively stable few past readings and patient has no further bleeding noted. Diet advanced today. Will replete and repeat potassium. Gaurang Ascencio MD Hospitalist.
[2018-10-31 18:35] LABS: HEMOGLOBIN 9.4 g/dL (12.0-16.0); MEAN CELL VOLUME 88.6 fl (80.0-105.0); MEAN CORPUSCULAR HEMOGLOBIN 28.3 pg (25.0-35.0); MEAN PLATELET VOLUME 10.6 fl (7.0-11.0); RBC 3.32 10^6/uL (3.5-6.1); RED CELL DISTRIBUTION WIDTH 15.1 % (11.5-14.5); WHITE BLOOD COUNT 5.7 10^3/uL (4.5-11.0)
[2018-10-31 22:41] VITALS: RESP 20
[2018-11-01 07:46] LABS: BASO # 0.02 K/mm3 (0.0-2.0); BASO % 0.4 % (0.0-3.0); EOS # 0.1 (0.0-0.7); EOS % 1.9 % (1.5-5.0); HEMOGLOBIN 9.7 g/dL (12.0-16.0); LYMPH % 17.4 % (22.0-35.0); MEAN CELL VOLUME 88.3 fl (80.0-105.0); MEAN CORPUSCULAR HEMOGLOBIN 28.4 pg (25.0-35.0); MEAN CORPUSCULAR HGB CONC 32.2 g/dl (31.0-37.0); MEAN PLATELET VOLUME 10.3 fl (7.0-11.0); MONO # 0.3 (0.1-0.6); MONO % 4.4 % (1.0-6.0); RBC 3.41 10^6/uL (3.5-6.1); RED CELL DISTRIBUTION WIDTH 14.9 % (11.5-14.5); WHITE BLOOD COUNT 5.7 10^3/uL (4.5-11.0)
[2018-11-01 07:56] VITALS: TEMP 98.2
--- NOTE | 2018-11-01 08:00 | CP.PCM.PN ---
Subjective - Date & Time of Evaluation Date of Evaluation: 11/01/18 Time of Evaluation: 07:57 - Subjective Subjective: Surgery Note for Dr. Osuna 73F seen and evaluated at bedside this morning. No acute events overnight. No complaints this morning. Having bowel movements, nonbloody. Tolerating diet. Denies f/c, n/v/d, SOB, CP, headaches, dizziness, or urinary symptoms. Objective - Vital Signs/Intake and Output Vital Signs (last 24 hours): Temp Pulse Resp BP Pulse Ox 98.2 F 64 20 109/72 95 11/01/18 06:00 11/01/18 06:00 11/01/18 06:00 11/01/18 06:00 10/31/18 22:00 - Medications Medications: Current Medications Acetaminophen (Tylenol 325mg Tab) 650 mg PO Q6H PRN PRN Reason: Pain, Mild (1-3) Last Admin: 10/30/18 02:11 Dose: 650 mg Alprazolam (Xanax) 0.25 mg PO HS CAREY; Protocol Stop: 11/04/18 22:01 Last Admin: 10/31/18 21:37 Dose: 0.25 mg Atorvastatin Calcium (Lipitor) 10 mg PO DIN CAREY Last Admin: 10/30/18 17:39 Dose: Not Given Breo Ellipta 100-25 (Mcg Inh (Home Med)) 1 inhaler INH DAILY CAREY Pantoprazole Sodium (Protonix Inj) 40 mg IVP Q12 CAREY Last Admin: 10/31/18 21:37 Dose: 40 mg Sodium Chloride (Bartholomew Nasal [place]) 0 ml NS PRN PRN PRN Reason: Nasal congestion - Labs Labs: 11/01/18 07:00 10/31/18 07:30 PT 12.6 SECONDS (9.4-12.5) H 10/29/18 14:00 INR 1.14 10/29/18 14:00 APTT 26.3 Seconds (26.9-38.3) L 10/29/18 14:00 - Constitutional Appears: Well, Non-toxic, No Acute Distress - Head Exam Head Exam: ATRAUMATIC, NORMAL INSPECTION, NORMOCEPHALIC - Eye Exam Eye Exam: EOMI - ENT Exam ENT Exam: Mucous Membranes Moist - Respiratory Exam Respiratory Exam: Clear to Ausculation Bilateral, NORMAL BREATHING PATTERN - Cardiovascular Exam Cardiovascular Exam: REGULAR RHYTHM, +S1, +S2. absent: Murmur - GI/Abdominal Exam GI & Abdominal Exam: Soft, Normal Bowel Sounds. absent: Distended, Guarding, Tenderness, Rebound - Neurological Exam Neurological Exam: Alert, Awake, Oriented x3 - Psychiatric Exam Psychiatric exam: Normal Affect, Normal Mood - Skin Skin Exam: Dry, Intact, Normal Color, Warm Assessment and Plan - Assessment and Plan (Free Text) Assessment: 73F w/ PMH HLD, GI bleed, Breast CA (Remission), Valvular Heart Disease, Diverticulosis, and Pancreatic Cyst, admitted for active rectal bleeding, now resolved. Plan: H/H stable Hemodynamically stable Transfuse as needed Tolerating diet Monitor bowel movements No further surgical intervention indicated at this present time Cleared from a surgical standpoint D/w Dr. Thao Bell PGY1
[2018-11-01 08:02] LABS: ALB/GLOB RATIO 1.1 (1.1-1.8); ALBUMIN 3.6 g/dL (3.0-4.8); ALT/SGPT 16 U/L (7-56); AST/SGOT 29 U/L (14-36); BLOOD UREA NITROGEN 8 mg/dL (7-21); CALCIUM 9.1 mg/dL (8.4-10.5); GFR NON-AFRICAN AMERICAN > 60
--- NOTE | 2018-11-01 13:40 | CP.PCM.DIS ---
<СергейMurray suejose - Last Filed: 11/01/18 13:25> Provider - Provider Date of Admission: 10/28/18 09:05 Attending physician: Gaurang Ascencio MD Primary care physician: Jeramie Wilkes MD Consults: 10/28/18 09:02 General Surgery Consult Stat Comment: Consulting Provider: Cirilo Osuna Consulting Physician: Cirilo Osuna Reason for Consult: rectal bleeding, PKTY 10/28/18 09:04 Gastroenterology Consult Stat Comment: Consulting Provider: Kain Kam V Consulting Physician: Kain Kam V Reason for Consult: rectal bleeding,PKTY 10/28/18 13:40 Social Work Referral Routine Comment: d/c plan Physician Instructions: Reason For Exam: assess Time Spent in preparation of Discharge (in minutes): 60 Diagnosis - Discharge Diagnosis (1) Rectal bleed Status: Acute Hospital Course - Lab Results Lab Results: Micro Results 10/29/18 00:01 Nose MRSA Culture (Admit) - Final MRSA NOT DETECTED Most Recent Lab Values WBC 5.7 10^3/uL (4.5-11.0) 11/01/18 07:00 RBC 3.41 10^6/uL (3.5-6.1) L 11/01/18 07:00 Hgb 9.7 g/dL (12.0-16.0) L 11/01/18 07:00 Hct 30.1 % (36.0-48.0) L 11/01/18 07:00 MCV 88.3 fl (80.0-105.0) 11/01/18 07:00 MCH 28.4 pg (25.0-35.0) 11/01/18 07:00 MCHC 32.2 g/dl (31.0-37.0) 11/01/18 07:00 RDW 14.9 % (11.5-14.5) H 11/01/18 07:00 Plt Count 121 10^3/uL (120.0-450.0) 11/01/18 07:00 MPV 10.3 fl (7.0-11.0) 11/01/18 07:00 Neut % (Auto) 75.9 % (50.0-68.0) H 11/01/18 07:00 Lymph % (Auto) 17.4 % (22.0-35.0) L 11/01/18 07:00 Marshall % (Auto) 4.4 % (1.0-6.0) 11/01/18 07:00 Eos % (Auto) 1.9 % (1.5-5.0) 11/01/18 07:00 Baso % (Auto) 0.4 % (0.0-3.0) 11/01/18 07:00 Lymph # (Auto) 1.0 (1.2-3.4) L 11/01/18 07:00 Marshall # (Auto) 0.3 (0.1-0.6) 11/01/18 07:00 Eos # (Auto) 0.1 (0.0-0.7) 11/01/18 07:00 Baso # (Auto) 0.02 K/mm3 (0.0-2.0) 11/01/18 07:00 Absolute Neuts (auto) 4.33 (1.4-6.5) 11/01/18 07:00 PT 12.6 SECONDS (9.4-12.5) H 10/29/18 14:00 INR 1.14 10/29/18 14:00 APTT 26.3 Seconds (26.9-38.3) L 10/29/18 14:00 pO2 30 mm/Hg (30-55) 10/28/18 18:20 VBG pH 7.40 (7.32-7.43) 10/28/18 18:20 VBG pCO2 39.0 (40-60) L 10/28/18 18:20 VBG HCO3 24.2 mmol/l (21-28) 10/28/18 18:20 VBG Total CO2 25.4 mmol.L (22-28) 10/28/18 18:20 VBG O2 Sat (Calc) 63.7 % (40-65) 10/28/18 18:20 VBG Base Excess -0.5 mmol/L (0.0-2.0) L 10/28/18 18:20 VBG Potassium 3.7 mmol/L (3.6-5.2) 10/28/18 18:20 Sodium 143.0 mmol/L (132-148) 10/28/18 18:20 Chloride 115.0 mmol/L (98-107) H 10/28/18 18:20 Glucose 85 mg/dl (65-105) 10/28/18 18:20 Lactate 1.5 mmol/L (0.7-2.1) 10/28/18 18:20 FiO2 21.0 % 10/28/18 18:20 Sodium 143 mmol/L (132-148) 11/01/18 07:00 Potassium 3.9 mmol/L (3.6-5.0) 11/01/18 07:00 Chloride 109 mmol/L (98-107) H 11/01/18 07:00 Carbon Dioxide 28 mmol/L (21-33) 11/01/18 07:00 Anion Gap 10 (10-20) 11/01/18 07:00 BUN 8 mg/dL (7-21) 11/01/18 07:00 Creatinine 0.7 mg/dl (0.7-1.2) 11/01/18 07:00 Est GFR ( Amer) > 60 11/01/18 07:00 Est GFR (Non-Af Amer) > 60 11/01/18 07:00 Random Glucose 95 mg/dL (70-110) 11/01/18 07:00 Calcium 9.1 mg/dL (8.4-10.5) 11/01/18 07:00 Phosphorus 2.4 mg/dL (2.5-4.5) L 10/31/18 07:30 Magnesium 2.1 mg/dL (1.7-2.2) 10/31/18 07:30 Total Bilirubin 0.4 mg/dL (0.2-1.3) 11/01/18 07:00 AST 29 U/L (14-36) 11/01/18 07:00 ALT 16 U/L (7-56) 11/01/18 07:00 Alkaline Phosphatase 67 U/L (38-126) 11/01/18 07:00 Troponin I 0.04 ng/mL 10/30/18 13:30 Total Protein 6.8 g/dL (5.8-8.3) 11/01/18 07:00 Albumin 3.6 g/dL (3.0-4.8) 11/01/18 07:00 Globulin 3.2 gm/dL 11/01/18 07:00 Albumin/Globulin Ratio 1.1 (1.1-1.8) 11/01/18 07:00 Venous Blood Potassium 3.7 mmol/L (3.6-5.2) 10/28/18 18:20 Blood Type A POSITIVE 10/28/18 08:23 Antibody Screen Negative 10/28/18 08:23 Crossmatch See Detail 10/28/18 08:23 BBK History Checked Patient has bt 10/28/18 08:23 - Hospital Course Hospital Course: Jass Ann, PGY-1, Internal Medicine Discharge Summary for Dr. Ascencio 73 year old female with past medical history of hyperlipidemia, GI bleed, breast cancer in remission, valvular heart disease, diverticulosis, diverticulitis, and pancreatic cyst presented with multiple episodes of bright red blood of rectum. Patient was admitted for hemorrhagic shock 2/ to likely lower GI bleed. Hemoglobin dropped from 12.7 on admission to 9s. Today's hemoglobin was 9.7. Patient's hemoglobin has been stable without any bloody BMs for the last 24 hours. Patient had multiple blood bowel movements this admission which has since ceased. Endoscopy and colonoscopy showed gastritis, diverticulosis. No active bleed was seen on endoscopy and colonoscopy. Patient subsequently spontaneously stopped bleeding. Patient received 4 U of PRBCs, 3 U of FFP, and 1 U of platelets on this admission. Patient was initially started on protonix drip which was switched to protonix 40 mg BID. Upon discharge, patient had stopped having bloody bowel movements and hemoglobin stabilized. Patient's diet was progressed to heart healthy and she tolerated the diet well. Patient was found to be stable and ready for discharge. Patient was told to take all home medications as prescribed. As per GI, patient was told to continue home zantac. Patient was told return to the emergency department if she had any new or concerning symptoms. This is a brief summary of the events that occurred at the hospital. For more information, please refer to hospital documentation. - Date & Time of H&P Date of H&P: 10/28/18 Time of H&P: 09:11 Discharge Exam - Head Exam Head Exam: ATRAUMATIC, NORMAL INSPECTION, NORMOCEPHALIC - Eye Exam Eye Exam: EOMI, PERRL - Neck Exam Neck exam: Tenderness (improved) - Respiratory Exam Respiratory Exam: Clear to PA & Lateral, NORMAL BREATHING PATTERN - Cardiovascular Exam Cardiovascular Exam: REGULAR RHYTHM, RRR - GI/Abdominal Exam GI & Abdominal Exam: Normal Bowel Sounds, Soft. absent: Tenderness - Extremities Exam Extremities exam: full ROM - Neurological Exam Neurological exam: Alert, CN II-XII Intact, Oriented x3 - Skin Skin Exam: Dry, Intact Discharge Plan - Follow Up Plan Condition: GUARDED Disposition: HOME/ ROUTINE Instructions: Gastrointestinal Bleeding, IV Infiltration Additional Instructions: Please follow up with PCP within 7-[address] Kam as soon as possible after calling his office. Please take xanax 0.25 mg daily, breo ellipta 1 inhalation daily, zantac 150 mg BID, crestor 5 mg QPM, and coreg 3.125 PO BID. Please return to the emergency department if you have any new or concerning symptoms. Referrals: Jeramie Wilkes MD [Primary Care Provider] - Kain Kam MD [Medical Doctor] - <Gaurang Ascencio - Last Filed: 11/01/18 13:58> Provider - Provider Date of Admission: 10/28/18 09:05 Attending physician: Gaurang Ascencio MD Primary care physician: Jeramie Wilkes MD Consults: 10/28/18 09:02 General Surgery Consult Stat Comment: Consulting Provider: Cirilo Osuna Consulting Physician: Cirilo Osuna Reason for Consult: rectal bleeding, PKTY 10/28/18 09:04 Gastroenterology Consult Stat Comment: Consulting Provider: Kain Kam V Consulting Physician: Kain Kam V Reason for Consult: rectal bleeding,PKTY 10/28/18 13:40 Social Work Referral Routine Comment: d/c plan Physician Instructions: Reason For Exam: assess Hospital Course - Lab Results Lab Results: Micro Results 10/29/18 00:01 Nose MRSA Culture (Admit) - Final MRSA NOT DETECTED Most Recent Lab Values WBC 5.7 10^3/uL (4.5-11.0) 11/01/18 07:00 RBC 3.41 10^6/uL (3.5-6.1) L 11/01/18 07:00 Hgb 9.7 g/dL (12.0-16.0) L 11/01/18 07:00 Hct 30.1 % (36.0-48.0) L 11/01/18 07:00 MCV 88.3 fl (80.0-105.0) 11/01/18 07:00 MCH 28.4 pg (25.0-35.0) 11/01/18 07:00 MCHC 32.2 g/dl (31.0-37.0) 11/01/18 07:00 RDW 14.9 % (11.5-14.5) H 11/01/18 07:00 Plt Count 121 10^3/uL (120.0-450.0) 11/01/18 07:00 MPV 10.3 fl (7.0-11.0) 11/01/18 07:00 Neut % (Auto) 75.9 % (50.0-68.0) H 11/01/18 07:00 Lymph % (Auto) 17.4 % (22.0-35.0) L 11/01/18 07:00 Marshall % (Auto) 4.4 % (1.0-6.0) 11/01/18 07:00 Eos % (Auto) 1.9 % (1.5-5.0) 11/01/18 07:00 Baso % (Auto) 0.4 % (0.0-3.0) 11/01/18 07:00 Lymph # (Auto) 1.0 (1.2-3.4) L 11/01/18 07:00 Marshall # (Auto) 0.3 (0.1-0.6) 11/01/18 07:00 Eos # (Auto) 0.1 (0.0-0.7) 11/01/18 07:00 Baso # (Auto) 0.02 K/mm3 (0.0-2.0) 11/01/18 07:00 Absolute Neuts (auto) 4.33 (1.4-6.5) 11/01/18 07:00 PT 12.6 SECONDS (9.4-12.5) H 10/29/18 14:00 INR 1.14 10/29/18 14:00 APTT 26.3 Seconds (26.9-38.3) L 10/29/18 14:00 pO2 30 mm/Hg (30-55) 10/28/18 18:20 VBG pH 7.40 (7.32-7.43) 10/28/18 18:20 VBG pCO2 39.0 (40-60) L 10/28/18 18:20 VBG HCO3 24.2 mmol/l (21-28) 10/28/18 18:20 VBG Total CO2 25.4 mmol.L (22-28) 10/28/18 18:20 VBG O2 Sat (Calc) 63.7 % (40-65) 10/28/18 18:20 VBG Base Excess -0.5 mmol/L (0.0-2.0) L 10/28/18 18:20 VBG Potassium 3.7 mmol/L (3.6-5.2) 10/28/18 18:20 Sodium 143.0 mmol/L (132-148) 10/28/18 18:20 Chloride 115.0 mmol/L (98-107) H 10/28/18 18:20 Glucose 85 mg/dl (65-105) 10/28/18 18:20 Lactate 1.5 mmol/L (0.7-2.1) 10/28/18 18:20 FiO2 21.0 % 10/28/18 18:20 Sodium 143 mmol/L (132-148) 11/01/18 07:00 Potassium 3.9 mmol/L (3.6-5.0) 11/01/18 07:00 Chloride 109 mmol/L (98-107) H 11/01/18 07:00 Carbon Dioxide 28 mmol/L (21-33) 11/01/18 07:00 Anion Gap 10 (10-20) 11/01/18 07:00 BUN 8 mg/dL (7-21) 11/01/18 07:00 Creatinine 0.7 mg/dl (0.7-1.2) 11/01/18 07:00 Est GFR ( Amer) > 60 11/01/18 07:00 Est GFR (Non-Af Amer) > 60 11/01/18 07:00 Random Glucose 95 mg/dL (70-110) 11/01/18 07:00 Calcium 9.1 mg/dL (8.4-10.5) 11/01/18 07:00 Phosphorus 2.4 mg/dL (2.5-4.5) L 10/31/18 07:30 Magnesium 2.1 mg/dL (1.7-2.2) 10/31/18 07:30 Total Bilirubin 0.4 mg/dL (0.2-1.3) 11/01/18 07:00 AST 29 U/L (14-36) 11/01/18 07:00 ALT 16 U/L (7-56) 11/01/18 07:00 Alkaline Phosphatase 67 U/L (38-126) 11/01/18 07:00 Troponin I 0.04 ng/mL 10/30/18 13:30 Total Protein 6.8 g/dL (5.8-8.3) 11/01/18 07:00 Albumin 3.6 g/dL (3.0-4.8) 11/01/18 07:00 Globulin 3.2 gm/dL 11/01/18 07:00 Albumin/Globulin Ratio 1.1 (1.1-1.8) 11/01/18 07:00 Venous Blood Potassium 3.7 mmol/L (3.6-5.2) 10/28/18 18:20 Blood Type A POSITIVE 10/28/18 08:23 Antibody Screen Negative 10/28/18 08:23 Crossmatch See Detail 10/28/18 08:23 BBK History Checked Patient has bt 10/28/18 08:23 Attending/Attestation - Attestation I have personally seen and examined this patient.: Yes I have fully participated in the care of the patient.: Yes I have reviewed all pertinent clinical information, including history, physical exam and plan: Yes Notes (Text): 11/01/18 13:57 73 year old female with past medical history of GIB, diverticulosis, diverticulitis, s/p left hemicolectomy, valvular heart disease and breast cancer in remission who presented with complaint of bright red blood per rectum, possible diverticular / lower GIB. She received multiple prbc/platelet/FFP transfusions. CT abd/pelvis and NM bleeding scan were negative for acute bleed. EGD/colonoscopy were done on which showed gastritis and diverticulosis. She was being followed by GI and surgery. H/H has been relatively stable few past readings and has improved today. Patient has no further bleeding noted. Patient is discharged home today to follow up with pmd. Follow up with GI and mine wirer. Gaurang Ascencio MD Hospitalist.
[2018-11-01 15:02] VITALS: BP 93/61; PULSE 69; O2SAT 93
[2018-11-01] MEDS: BREO ELLIPTA INH SCH (15:15)
== END 2018-11-01 15:38 | disposition home or self-care (01) | DRG 377 ==
LOC: ED 07:53 → ERH 09:05 → CCU 20:13 → 5RSO 10-30 12:29
PROVIDERS: ADMIT Internal Medicine; ATTEND Internal Medicine
PROC: 30233L1 Transfusion of Nonautologous Fresh Plasma into Peripheral Vein, Percutaneous Approach (ICD-10-PCS; 2018-10-28)
PROC: 30233N1 Transfusion of Nonautologous Red Blood Cells into Peripheral Vein, Percutaneous Approach (ICD-10-PCS; 2018-10-28)
PROC: 30233R1 Transfusion of Nonautologous Platelets into Peripheral Vein, Percutaneous Approach (ICD-10-PCS; 2018-10-29)
PROC: 06HY33Z Insertion of Infusion Device into Lower Vein, Percutaneous Approach (ICD-10-PCS; 2018-10-29)
PROC: 0DJ08ZZ Inspection of Upper Intestinal Tract, Via Natural or Artificial Opening Endoscopic (ICD-10-PCS; principal; 2018-10-29 18:00)
PROC: 0DJD8ZZ Inspection of Lower Intestinal Tract, Via Natural or Artificial Opening Endoscopic (ICD-10-PCS; 2018-10-29 18:00)
DX: K57.91 Diverticulosis of intestine, part unspecified, without perforation or abscess with bleeding (principal); R57.8 Other shock; D62 Acute posthemorrhagic anemia; K86.2 Cyst of pancreas; D63.0 Anemia in neoplastic disease; I10 Essential (primary) hypertension; K43.9 Ventral hernia without obstruction or gangrene; F41.9 Anxiety disorder, unspecified; E87.6 Hypokalemia; K29.70 Gastritis, unspecified, without bleeding; K44.9 Diaphragmatic hernia without obstruction or gangrene; E78.00 Pure hypercholesterolemia, unspecified; K21.9 Gastro-esophageal reflux disease without esophagitis; Z85.3 Personal history of malignant neoplasm of breast; Z90.13 Acquired absence of bilateral breasts and nipples; Z87.891 Personal history of nicotine dependence

== ENCOUNTER 2018-11-05 18:41 | Emergency (ER) | payer MEDICARE ==
[2018-11-05 19:47] VITALS: BMI 30.1
--- NOTE | 2018-11-05 19:58 | ED PDOC ---
Arrival/HPI - General Chief Complaint: Abnormal Labs Time Seen by Provider: 11/05/18 19:48 - History of Present Illness Narrative History of Present Illness (Text): 73 y/o F c PMHx GI bleed, anemia p/w general weakness x 1 week. Patient reports had rectal bleeding this past week and has been feeling fatigued since. Denies chest pain, dyspnea, syncope. Patient went to see Dr. Negin CRISOSTOMO who suspects patient with low "iron" and instructed patient to come to ED for further evaluation. Past Medical History - Infectious Disease Hx of Infectious Diseases: None - Tetanus Immunization Tetanus Immunization: Unknown - Cardiac Hx Hypertension: Yes Other/Comment: "leaky valve" - Pulmonary Hx Respiratory Disorders: No Hx Bronchitis: Yes - Neurological Hx Neurological Disorder: No - HEENT Hx HEENT Disorder: Yes (eyeglasses for reading) - Renal Hx Renal Disorder: No - Endocrine/Metabolic Hx Endocrine Disorders: No - Hematological/Oncological Hx Blood Transfusions: Yes Hx Blood Transfusion Reaction: No - Integumentary Hx Dermatological Disorder: No - Musculoskeletal/Rheumatological Hx Musculoskeletal Disorders: Yes Hx Falls: Yes - Gastrointestinal Hx Gastrointestinal Disorders: Yes (hiatal hernia) Hx Colostomy: Yes Hx Diverticulitis: Yes (2011) Hx Gastroesophageal Reflux: Yes Other/Comment: gi bleed , pancreatic cyst - Genitourinary/Gynecological Hx Genitourinary Disorders: Yes - Psychiatric Hx Anxiety: Yes Hx Emotional Abuse: No Hx Physical Abuse: No Hx Substance Use: No - Surgical History Hx Mastectomy: Yes (2004) Other/Comment: 11/2016 exp lap with colectomy/colostomy, 07/07/17 exp lap colostomy closure and lower anter bowel resection - Anesthesia Hx Anesthesia Reactions: No Hx Malignant Hyperthermia: No - Suicidal Assessment Feels Threatened In Home Enviroment: No Family/Social History Family/Social History: No Known Family HX Smoking Status: Never Smoked Hx Alcohol Use: No Hx Substance Use: No Hx Substance Use Treatment: No Allergies/Home Meds Allergies/Adverse Reactions: Allergies No Known Allergies Allergy (Verified 11/05/18 19:48) Home Medications: Home Meds Medication Instructions Recorded Confirmed Rosuvastatin Calcium [Crestor] 5 mg PO QPM 04/07/17 11/05/18 Fluticasone/Vilanterol [Breo 1 inhaler INH DAILY 10/19/17 11/05/18 Ellipta 100-25 Mcg INH] ALPRAZolam [Xanax] 0.25 mg PO DAILY 10/28/18 11/05/18 Ranitidine HCl [Zantac] 150 mg PO BID 10/28/18 11/05/18 Review of Systems - Physician Review All systems were reviewed & negative as marked: Yes - Review of Systems Constitutional: absent: Fevers Respiratory: absent: SOB Cardiovascular: absent: Chest Pain Physical Exam - Physical Exam Narrative Physical Exam (Text): Constitutional: No acute distress. Head: Normocephalic. Atraumatic. Eyes: PERRL. ENT: Moist mucous membranes. Neck: Supple. Cardiovascular: Regular rate. Chest: No tenderness. Respiratory: Clear to auscultation bilaterally. GI: Soft. Nontender. Nondistended. Back: No CVA tenderness. Musculoskeletal: No tenderness or swelling of extremities. Skin: No rash. Neurologic: Alert, no focal deficit. Vital Signs Temp Pulse Resp BP Pulse Ox 11/05/18 19:48 97.7 F 68 18 122/76 100 Medical Decision Making ED Course and Treatment: Hb 10, iron normal. Patient in no distress. Discussed case with Dr. Wilkes's nurse. Has follow up on Friday. Will discharge at this time. Disposition/Present on Arrival - Present on Arrival Any Indicators Present on Arrival: No History of DVT/PE: No History of Uncontrolled Diabetes: No Urinary Catheter: No History of Decub. Ulcer: No History Surgical Site Infection Following: None - Disposition Have Diagnosis and Disposition been Completed?: Yes Diagnosis: Anemia Disposition: HOME/ ROUTINE Disposition Time: 21:18 Patient Plan: Discharge Condition: STABLE Discharge Instructions (ExitCare): Hemorrhoids Referrals: Jeramie Wilkes MD [Primary Care Provider] - Follow up with primary Forms: [employer] (Kyr[place]z)
[2018-11-05 20:29] VITALS: TEMP 98
[2018-11-05 20:38] LABS: BASO # 0.04 K/mm3 (0.0-2.0); BASO % 0.6 % (0.0-3.0); EOS # 0.2 (0.0-0.7); EOS % 2.8 % (1.5-5.0); HEMOGLOBIN 10.3 g/dL (12.0-16.0); LYMPH # 1.5 (1.2-3.4); MEAN CELL VOLUME 88.9 fl (80.0-105.0); MEAN CORPUSCULAR HEMOGLOBIN 28.5 pg (25.0-35.0); MEAN CORPUSCULAR HGB CONC 32.1 g/dl (31.0-37.0); MEAN PLATELET VOLUME 10.5 fl (7.0-11.0); MONO # 0.4 (0.1-0.6); RBC 3.61 10^6/uL (3.5-6.1); RED CELL DISTRIBUTION WIDTH 15.1 % (11.5-14.5); WHITE BLOOD COUNT 6.8 10^3/uL (4.5-11.0)
[2018-11-05 20:49] LABS: ALB/GLOB RATIO 1.1 (1.1-1.8); ALBUMIN 4.1 g/dL (3.0-4.8); ALT/SGPT 24 U/L (7-56); AST/SGOT 28 U/L (14-36); BLOOD UREA NITROGEN 16 mg/dL (7-21); CALCIUM 9.4 mg/dL (8.4-10.5); GFR NON-AFRICAN AMERICAN > 60
[2018-11-05 21:31] VITALS: BP 121/56; PULSE 87; RESP 19; O2SAT 98
== END 2018-11-05 21:29 | disposition home or self-care (01) ==
LOC: ED 18:41
DX: D64.9 Anemia, unspecified (principal); I10 Essential (primary) hypertension

== ENCOUNTER 2018-12-30 10:22 | Outpatient (CLI) | payer MEDICARE | END 2018-12-30 10:23 | disposition home or self-care (01) | LOC: RAD 10:22 | DX: R10.2 Pelvic and perineal pain (principal) ==

== ENCOUNTER 2019-01-11 16:23 | Observation (INO) | payer MEDICARE ==
[2019-01-11 16:38] VITALS: BMI 30.9
[2019-01-11 17:16] LABS: BASO # 0.03 K/mm3 (0.0-2.0); BASO % 0.4 % (0.0-3.0); EOS # 0.2 (0.0-0.7); HEMOGLOBIN 12.1 g/dL (12.0-16.0); LYMPH # 1.5 (1.2-3.4); LYMPH % 19.4 % (22.0-35.0); MEAN CELL VOLUME 86.4 fl (80.0-105.0); MEAN CORPUSCULAR HGB CONC 31.3 g/dl (31.0-37.0); MEAN PLATELET VOLUME 10.8 fl (7.0-11.0); MONO # 0.4 (0.1-0.6); MONO % 5.7 % (1.0-6.0); RBC 4.48 10^6/uL (3.5-6.1); RED CELL DISTRIBUTION WIDTH 15.2 % (11.5-14.5); WHITE BLOOD COUNT 7.5 10^3/uL (4.5-11.0)
--- NOTE | 2019-01-11 17:22 | ED PDOC ---
Arrival/HPI - General Chief Complaint: GI Problem Time Seen by Provider: 01/11/19 16:31 Historian: Patient - History of Present Illness Narrative History of Present Illness (Text): 01/11/19 16:31 Patient is a 74 year old female, with a past medical history of hemorrhoids, hypertension, GI bleed, diverticulitis, colostomy w/ reversal, pancreatic cyst, and breast cancer (w/ mastectomy and lumpectomy), who presents to the emergency department complaining of rectal bleeding prior to arrival. Patient informs of blood in the water and denies dark/bloody stools. Patient also notes associated lower abdominal pain and dysuria. Patient informs of dizziness prior to onset of bleed but denies loss of consciousness. Also notes she felt "hot". She informs taking ciprofloxin yesterday and today as suggested by ROOM SERVICE WAITER for possible UTI. Patient denies fevers, chills, headache, chest pain, shortness of breath, cough, abdominal pain, nausea, vomting, appetite changes, hematuria, back pain, neck pain, or any other complaint. Time/Duration: Prior to Arrival Symptom Onset: Sudden Activities at Onset: Light Context: Other (Republican) Past Medical History - Provider Review Nursing Documentation Reviewed: Yes Primary Care Provider: Jeramie Wilkes - Infectious Disease Hx of Infectious Diseases: None - Tetanus Immunization Tetanus Immunization: Unknown - Cardiac Hx Hypertension: Yes Other/Comment: "leaky valve" - Pulmonary Hx Respiratory Disorders: No Hx Bronchitis: Yes - Neurological Hx Neurological Disorder: No - HEENT Hx HEENT Disorder: Yes (eyeglasses for reading) - Renal Hx Renal Disorder: No - Endocrine/Metabolic Hx Endocrine Disorders: No - Hematological/Oncological Hx Blood Transfusions: Yes Hx Blood Transfusion Reaction: No Hx Cancer: Yes (breast CA) - Integumentary Hx Dermatological Disorder: No - Musculoskeletal/Rheumatological Hx Musculoskeletal Disorders: Yes Hx Falls: Yes - Gastrointestinal Hx Gastrointestinal Disorders: Yes (hiatal hernia) Hx Colostomy: Yes Hx Diverticulitis: Yes (2011) Hx Gastroesophageal Reflux: Yes Other/Comment: gi bleed , pancreatic cyst - Genitourinary/Gynecological Hx Genitourinary Disorders: Yes - Psychiatric Hx Anxiety: Yes Hx Emotional Abuse: No Hx Physical Abuse: No Hx Substance Use: No - Surgical History Hx Mastectomy: Yes (2004) Other/Comment: 11/2016 exp lap with colectomy/colostomy, 07/07/17 exp lap colostomy closure and lower anter bowel resection - Anesthesia Hx Anesthesia: Yes Hx Anesthesia Reactions: No Hx Malignant Hyperthermia: No - Suicidal Assessment Feels Threatened In Home Enviroment: No Family/Social History - Physician Review Nursing Documentation Reviewed: Yes Family/Social History: Unknown Family HX Smoking Status: Never Smoked Hx Alcohol Use: No Hx Substance Use: No Hx Substance Use Treatment: No Allergies/Home Meds Allergies/Adverse Reactions: Allergies No Known Allergies Allergy (Verified 01/11/19 16:38) Home Medications: Home Meds Medication Instructions Recorded Confirmed Rosuvastatin Calcium [Crestor] 5 mg PO QPM 04/07/17 11/05/18 Fluticasone/Vilanterol [Breo 1 inhaler INH DAILY 10/19/17 11/05/18 Ellipta 100-25 Mcg INH] ALPRAZolam [Xanax] 0.25 mg PO DAILY 10/28/18 11/05/18 Ranitidine HCl [Zantac] 150 mg PO BID 10/28/18 11/05/18 Review of Systems - Physician Review All systems were reviewed & negative as marked: Yes - Review of Systems Constitutional: absent: Fevers, Other (chills) Respiratory: absent: SOB, Cough Cardiovascular: absent: Chest Pain Gastrointestinal: Abdominal Pain (lower abdomen), Other (rectal bleeding, blood in water). absent: Diarrhea, Nausea, Vomiting, Appetite Changes, Hematochezia Genitourinary Female: Dysuria. absent: Hematuria Musculoskeletal: absent: Back Pain, Neck Pain Neurological: absent: Headache, Dizziness Physical Exam Vital Signs Reviewed: Yes Vital Signs Temp Pulse Resp BP Pulse Ox 01/11/19 16:38 97.5 F L 97 H 18 117/80 98 Temperature: Afebrile Blood Pressure: Normal Pulse: Regular Respiratory Rate: Normal Appearance: Positive for: Well-Appearing, Non-Toxic, Comfortable Pain Distress: None Mental Status: Positive for: Alert and Oriented X 3 - Systems Exam Head: Present: Atraumatic, Normocephalic Pupils: Present: PERRL Extroacular Muscles: Present: EOMI Conjunctiva: Present: Normal Mouth: Present: Moist Mucous Membranes Neck: Present: Normal Range of Motion Respiratory/Chest: Present: Clear to Auscultation, Good Air Exchange. No: Respiratory Distress, Accessory Muscle Use, Wheezes, Rales, Rhonchi Cardiovascular: Present: Regular Rate and Rhythm, Normal S1, S2. No: Murmurs, Rub, Gallop Abdomen: Present: Normal Bowel Sounds. No: Tenderness, Distention, Peritoneal Signs, Rebound, Guarding Rectal: Present: Normal Rectal Tone, Nodule/Mass/Lesions (External skin tags; non-thrombosed, not actively bleeding. ), Other (Bright red blood.). No: Fissures Back: Present: Normal Inspection Upper Extremity: Present: Normal Inspection. No: Cyanosis, Edema Lower Extremity: Present: Normal Inspection. No: Edema Neurological: Present: GCS=15, CN II-XII Intact, Speech Normal Skin: Present: Warm, Dry, Normal Color. No: Rashes Psychiatric: Present: Alert, Oriented x 3, Normal Insight, Normal Concentration Medical Decision Making ED Course and Treatment: 01/11/19 16:31 Impression: Patient is a 74 year old female, with a past medical history of hemorrhoids, hypertension, GI bleed, diverticulitis, colostomy w/ reversal, and breast cancer (w/ mastectomy and lumpectomy), who presents to the emergency department complaining of rectal bleed prior to arrival. Differential Diagnosis included but are not limited to: GI bleed Plan: -- Labs -- EKG -- Protonix Inj -- Reassess and disposition Prior Visits: Notes and results from previous visits were reviewed. Progress Notes: 01/11/19 17:27 Hbg 12 and stable. Patient currently stable. Rectal exam was completed with RN biodiesel plant manager. Patient was seen and evaluated by Dr. Kam at bedside who would like a bleeding scan and recommends placing on observation due to her history of severe GI bleed in the past. 01/11/19 18:[address] Damon who will admit under her service. - EKG Interpretation EKG Interpretation (Text): 01/11/19 17:05 Reviewed EKG, shows: NSR at 75 BPM. Left anterior fascicular block. No change from 10/30/18 Interpreted by ED Physician: Yes Type: 12 lead EKG - Medication Orders Current Medication Orders: Discontinued Medications Pantoprazole Sodium (Protonix Inj) 80 mg IVP STAT STA Stop: 01/11/19 16:50 Last Admin: 01/11/19 17:07 Dose: 80 mg IVP Administration Document 01/11/19 17:07 SS (Rec: 01/11/19 17:07 SS [facility] [id number]) Charges for Administration # of IVP Administrations 1 - Scribe Statement The provider has reviewed the documentation as recorded by the Scribe Joe Macdonald All medical record entries made by the Scribe were at my direction and personally dictated by me. I have reviewed the chart and agree that the record accurately reflects my personal performance of the history, physical exam, medical decision making, and the department course for this patient. I have also personally directed, reviewed, and agree with the discharge instructions and disposition. Disposition/Present on Arrival - Present on Arrival Any Indicators Present on Arrival: No History of DVT/PE: No History of Uncontrolled Diabetes: No Urinary Catheter: No History of Decub. Ulcer: No History Surgical Site Infection Following: None - Disposition Have Diagnosis and Disposition been Completed?: Yes Diagnosis: Gastrointestinal bleed Disposition Time: 18:09 Patient Plan: Observation Condition: FAIR Forms: [employer] (Bhutanese)
[2019-01-11 17:26] LABS: ALB/GLOB RATIO 1.1 (1.1-1.8); ALBUMIN 4.3 g/dL (3.0-4.8); ALT/SGPT 16 U/L (7-56); AMYLASE 68 U/L (35-125); AST/SGOT 25 U/L (14-36); BLOOD UREA NITROGEN 20 mg/dL (7-21); CALCIUM 9.2 mg/dL (8.4-10.5); GFR NON-AFRICAN AMERICAN > 60; LIPASE 76 U/L (23-300)
[2019-01-11 17:30] LABS: INR 1.11; PARTIAL THROMBOPLASTIN TIME 32.5 Seconds (26.9-38.3); PROTHROMBIN TIME 12.3 SECONDS (9.4-12.5)
--- NOTE | 2019-01-11 19:27 | CARD ---
APPROVED REPORT Date of service: 01/11/2019 EKG Measurement Heart [id number] ME [id number] <Conclusion> Normal sinus rhythm Left anterior fascicular block Anterolateral infarct, age undetermined NDSTT abnormalities Abnormal ECG
--- NOTE | 2019-01-11 20:33 | CP.PCM.HP ---
<Sridhar Alfaro - Last Filed: 01/12/19 06:11> History of Present Illness - History of Present Illness History of Present Illness: Sridhar Alfaro Internal Medicine Resident- H&P on Behalf of Hospitalist Team Subjective: CC: bleed from rectum HPI: Patient is a 74 year old female with past medical history of hyperlipidemia GI bleed, breast ca (remission), valvular heart disease, diverticulosis, diverticulitis, internal/external hemorrhoids, pancreatic cyst who presents to the emergency department for evaluation and treatment of bleeding from the rectum. Patient states she had two episodes of mason blood per rectum this morning without a specific provoking event. She went to the bathroom and noticed drops of bright red blood in the toilet and on the toilet paper. Denied associated bowel movement and rectal pain. Admits to associated bloating with increased flatus, and LRQ/ RLQ pain. The abdominal pain is characterized as a nonradiating dull aching and is rated at 6/10. The pain improves with BMs. Patient endorses mild dizziness and lightheadedness which have resolved since onset without acute intervention.Patient also states she experienced burning with urination which began two weeks ago. She was evaluated by her aerial tram operator who started her on ciprofloxacin yesterday. Currently denies dysuria, urinary frequency, urgency, hematuria. Further denies fever, chills, SOB, chest pain, nausea, vomiting, diarrhea, and constipation. 12 system ROS reviewed and negative except mentioned in HPI. Past medical history: HLD, GI bleed, breast ca (remission), valvular heart disease, diverticulosis, diverticulitis, internal/external hemorrhoids, pancreatic cyst Past surgical history: Hemicolectomy w/ colostomy and reversal, B/L mastectomy Allergies: seasonal Social History: former tobacco user, quit 1992, Denies Alcohol or illicit drug use Family history: Angina (Mother), incarcerated bowel (father) Medications: Crestor, Rantidine, Xanax, Coreg PMD: Dr. Wilkes Cardio: Dr. Quintero GI: Dr. Kam Gen Surg: Dr. Osuna dragger out: Dr. Amezquita Physical Examination: - Constitutional Appears: Non-toxic, No Acute Distress - Head Exam Head Exam: ATRAUMATIC, NORMAL INSPECTION - Eye Exam Eye Exam: EOMI, Normal appearance, no conjunctival pallor - ENT Exam ENT Exam: Mucous Membranes Moist - Neck Exam Neck exam: Positive for: Normal Inspection - Respiratory Exam Respiratory Exam: Clear to Auscultation Bilateral. absent: Rales, Rhonchi, Wheezes, Respiratory Distress - Cardiovascular Exam Cardiovascular Exam: REGULAR RHYTHM, +S1, +S2. absent: Gallop, Rubs, Systolic Murmur - GI/Abdominal Exam GI & Abdominal Exam: Normal Bowel Sounds, Soft, absent: Distended, Firm, Guarding, Rigid - Rectal Exam Rectal Exam: completed by ED physician- Present: Normal Rectal Tone, Nodule/Mass/Lesions (External skin tags; non-thrombosed, not actively bleeding. ), Other (Bright red blood.). No: Fissures - Extremities Exam Extremities exam: Negative for: calf tenderness, pedal edema - Back Exam Back exam: absent: CVA tenderness (L), CVA tenderness (R) - Neurological Exam Neurological exam: Alert, CN II-XII Intact, Oriented x3 - Skin Skin Exam: Dry, Intact, Normal Color, Warm Assessment and Plan: Patient is a 74 year old female with past medical history of HLD, GI bleed, Breast CA (Remission), Valvular Heart Disease, Diverticulosis, Diverticulitis, Pancreatic Cyst who presents to the emergency department for evaluation and treatment of with bleeding from the rectum. GI Hemorrhage - keep NPO - protonix 40mg IV q12 - CBC q6h, Hgb > 8 as this is a cardiac patient - type and screen - 2 large bore peripheral IVs - start IVF half NS @ 75cc/hr - bleeding scan ordered and pending - GI consulted (Dr. Kam)- appreciate recommendations - prior colonoscopy 10/29/2018- diverticulosis of entire colon, lipomatous ileocecal valve, patent end to end colo-colonic anatosmosis - prior endoscopy 10/29/2018- gastritis, normal esophagus, small hiatal hernia Hyperlipidemia - continue home crestor 5mg PO daily Mitral Valve Pathology - patients states her cardiologisty started her on carvedilol for valve abnorma lity - continue home carvedilol 3.125 mg PO bid with holding parameters Anxiety/ Insomnia - xanax 0.25 mg PO daily prn anxiety Suspected UTI - UA- negative for UTI - urine culture ordered and pending Prophylaxis - DVT ppx- SCDs - GI ppx- protonix 40mg IV BID Patient case discussed and plan approved by attending physician, Dr. Frye. Present on Admission - Present on Admission Any Indicators Present on Admission: No Past Patient History - Infectious Disease Hx of Infectious Diseases: None - Tetanus Immunizations Tetanus Immunization: Unknown - Past Medical History & Family History Past Medical History?: Yes - Past Social History Smoking Status: Never Smoked - CARDIAC Hx Hypertension: Yes Other/Comment: "leaky valve" - PULMONARY Hx Respiratory Disorders: No Hx Bronchitis: Yes - NEUROLOGICAL Hx Neurological Disorder: No - HEENT Hx HEENT Problems: Yes (eyeglasses for reading) - RENAL Hx Chronic Kidney Disease: No - ENDOCRINE/METABOLIC Hx Endocrine Disorders: No - HEMATOLOGICAL/ONCOLOGICAL Hx Blood Transfusions: Yes Hx Blood Transfusion Reaction: No Hx Cancer: Yes (breast CA) - INTEGUMENTARY Hx Dermatological Problems: No - MUSCULOSKELETAL/RHEUMATOLOGICAL Hx Musculoskeletal Disorders: Yes Hx Falls: Yes - GASTROINTESTINAL Hx Gastrointestinal Disorders: Yes (hiatal hernia) Hx Colostomy: Yes Hx Diverticulitis: Yes (2011) Hx Gastroesophageal Reflux: Yes Other/Comment: gi bleed , pancreatic cyst - GENITOURINARY/GYNECOLOGICAL Hx Genitourinary Disorders: Yes - PSYCHIATRIC Hx Anxiety: Yes Hx Emotional Abuse: No Hx Physical Abuse: No Hx Substance Use: No - SURGICAL HISTORY Hx Mastectomy: Yes (cirilo 2004) Other/Comment: 11/2016 exp lap with colectomy/colostomy, 07/07/17 exp lap colostomy closure and lower anter bowel resection - ANESTHESIA Hx Anesthesia: Yes Hx Anesthesia Reactions: No Hx Malignant Hyperthermia: No Meds Allergies/Adverse Reactions: Allergies Allergy/AdvReac Type Severity Reaction Status Date / Time No Known Allergies Allergy Verified 01/11/19 20:25 Results - Vital Signs Recent Vital Signs: Last Vital Signs Temp 97.5 F L 01/11/19 16:38 Pulse 97 H 01/11/19 16:38 Resp 18 01/11/19 16:38 BP 117/80 01/11/19 16:38 Pulse Ox 98 01/11/19 16:38 - Labs Result Diagrams: 01/11/19 23:15 01/11/19 17:00 Labs: Laboratory Results - last 24 hr 01/11/19 01/11/19 01/11/19 17:00 17:00 17:00 WBC 7.5 RBC 4.48 Hgb 12.1 Hct 38.7 MCV 86.4 MCH 27.0 MCHC 31.3 RDW 15.2 H Plt Count 199 MPV 10.8 Neut % (Auto) 72.5 H Lymph % (Auto) 19.4 L Knox % (Auto) 5.7 Eos % (Auto) 2.0 Baso % (Auto) 0.4 Lymph # (Auto) 1.5 Knox # (Auto) 0.4 Eos # (Auto) 0.2 Baso # (Auto) 0.03 Absolute Neuts (auto) 5.46 PT 12.3 INR 1.11 APTT 32.5 Sodium 143 Potassium 3.8 Chloride 106 Carbon Dioxide 26 Anion Gap 15 BUN 20 Creatinine 0.8 Est GFR ( Amer) > 60 Est GFR (Non-Af Amer) > 60 Random Glucose 94 Calcium 9.2 Total Bilirubin 0.3 AST 25 ALT 16 Alkaline Phosphatase 89 Total Protein 8.2 Albumin 4.3 Globulin 3.9 Albumin/Globulin Ratio 1.1 Amylase 68 Lipase 76 Blood Type Antibody Screen BBK History Checked 01/11/19 17:00 WBC RBC Hgb Hct MCV MCH MCHC RDW Plt Count MPV Neut % (Auto) Lymph % (Auto) Knox % (Auto) Eos % (Auto) Baso % (Auto) Lymph # (Auto) Knox # (Auto) Eos # (Auto) Baso # (Auto) Absolute Neuts (auto) PT INR APTT Sodium Potassium Chloride Carbon Dioxide Anion Gap BUN Creatinine Est GFR ( Amer) Est GFR (Non-Af Amer) Random Glucose Calcium Total Bilirubin AST ALT Alkaline Phosphatase Total Protein Albumin Globulin Albumin/Globulin Ratio Amylase Lipase Blood Type A POSITIVE Antibody Screen Negative BBK History Checked Patient has bt <Rita Frye - Last Filed: 01/12/19 06:17> Results - Vital Signs Recent Vital Signs: Last Vital Signs Temp 97.6 F 01/12/19 00:01 Pulse 61 01/12/19 05:59 Resp 20 01/12/19 00:01 BP 98/62 L 01/12/19 00:01 Pulse Ox 94 L 01/12/19 00:01 - Labs Result Diagrams: 01/11/19 23:15 01/11/19 17:00 Labs: Laboratory Results - last 24 hr 01/11/19 01/11/19 01/11/19 17:00 17:00 17:00 WBC 7.5 RBC 4.48 Hgb 12.1 Hct 38.7 MCV 86.4 MCH 27.0 MCHC 31.3 RDW 15.2 H Plt Count 199 MPV 10.8 Neut % (Auto) 72.5 H Lymph % (Auto) 19.4 L Knox % (Auto) 5.7 Eos % (Auto) 2.0 Baso % (Auto) 0.4 Lymph # (Auto) 1.5 Knox # (Auto) 0.4 Eos # (Auto) 0.2 Baso # (Auto) 0.03 Absolute Neuts (auto) 5.46 PT 12.3 INR 1.11 APTT 32.5 Sodium 143 Potassium 3.8 Chloride 106 Carbon Dioxide 26 Anion Gap 15 BUN 20 Creatinine 0.8 Est GFR ( Amer) > 60 Est GFR (Non-Af Amer) > 60 Random Glucose 94 Calcium 9.2 Total Bilirubin 0.3 AST 25 ALT 16 Alkaline Phosphatase 89 Total Protein 8.2 Albumin 4.3 Globulin 3.9 Albumin/Globulin Ratio 1.1 Amylase 68 Lipase 76 Urine Color Urine Appearance Urine pH Ur Specific [place] Urine Protein Urine Glucose (UA) Urine Ketones Urine Blood Urine Nitrate Urine Bilirubin Urine Urobilinogen Ur Leukocyte Esterase Urine RBC Urine WBC Ur Epithelial Cells Blood Type Antibody Screen BBK History Checked 01/11/19 01/11/19 01/11/19 17:00 21:35 23:15 WBC 6.7 RBC 4.23 Hgb 11.4 L Hct 36.3 MCV 85.8 MCH 27.0 MCHC 31.4 RDW 15.2 H Plt Count 174 MPV 10.6 Neut % (Auto) 70.4 H Lymph % (Auto) 20.4 L Knox % (Auto) 7.6 H Eos % (Auto) 1.3 L Baso % (Auto) 0.3 Lymph # (Auto) 1.4 Knox # (Auto) 0.5 Eos # (Auto) 0.1 Baso # (Auto) 0.02 Absolute Neuts (auto) 4.74 PT INR APTT Sodium Potassium Chloride Carbon Dioxide Anion Gap BUN Creatinine Est GFR ( Amer) Est GFR (Non-Af Amer) Random Glucose Calcium Total Bilirubin AST ALT Alkaline Phosphatase Total Protein Albumin Globulin Albumin/Globulin Ratio Amylase Lipase Urine Color Yellow Urine Appearance Clear Urine pH 6.0 Ur Specific [place] <= 1.005 Urine Protein Negative Urine Glucose (UA) Negative Urine Ketones Negative Urine Blood Negative Urine Nitrate Negative Urine Bilirubin Negative Urine Urobilinogen 0.2 Ur Leukocyte Esterase Trace H Urine RBC None Urine WBC 0 - 2 Ur Epithelial Cells 0 - 2 Blood Type A POSITIVE Antibody Screen Negative BBK History Checked Patient has bt Attending/Attestation - Attestation I have personally seen and examined this patient.: Yes I have fully participated in the care of the patient.: Yes I have reviewed all pertinent clinical information: Yes Notes (Text): 01/12/19 06:16 Seen and examined. Discussed with resident. A&P as above. C/O mild B/L LQ abdominal pain. Check UCX for recent UTI.
[2019-01-11] MEDS: Sodium Chloride 0.45% 1,000 ML IV SCH (21:29)
[2019-01-11 21:43] LABS: URINE BILIRUBIN NEGATIVE (NEGATIVE); URINE BLOOD NEGATIVE (NEGATIVE); URINE GLUCOSE (UA) NEGATIVE (NEGATIVE); URINE LEUKOCYTE ESTERASE TRACE Leu/uL (NEGATIVE); URINE PROTEIN NEGATIVE mg/dL (<30 mg/dL); URINE UROBILINOGEN 0.2 E.U./dL (<1 E.U./dL)
[2019-01-11 21:44] LABS: URINE APPEARANCE CLEAR (CLEAR); URINE COLOR YELLOW (YELLOW)
[2019-01-11 21:50] LABS: URINE EPITHELIAL CELLS 0 - 2 /hpf (0-5); URINE WBC 0 - 2 /hpf (0-6)
[2019-01-11] MEDS ORDERED: Pneumococcal 23-Valent Vaccine IM ONE (23:14)
[2019-01-11 23:29] LABS: BASO # 0.02 K/mm3 (0.0-2.0); BASO % 0.3 % (0.0-3.0); EOS # 0.1 (0.0-0.7); EOS % 1.3 % (1.5-5.0); HEMOGLOBIN 11.4 g/dL (12.0-16.0); LYMPH # 1.4 (1.2-3.4); LYMPH % 20.4 % (22.0-35.0); MEAN CELL VOLUME 85.8 fl (80.0-105.0); MEAN CORPUSCULAR HGB CONC 31.4 g/dl (31.0-37.0); MEAN PLATELET VOLUME 10.6 fl (7.0-11.0); MONO # 0.5 (0.1-0.6); MONO % 7.6 % (1.0-6.0); RBC 4.23 10^6/uL (3.5-6.1); RED CELL DISTRIBUTION WIDTH 15.2 % (11.5-14.5); WHITE BLOOD COUNT 6.7 10^3/uL (4.5-11.0)
[2019-01-12 03:04] VITALS: RESP 20
--- NOTE | 2019-01-12 06:16 | CP.PCM.CON ---
<Sridhar Alfaro - Last Filed: 01/12/19 06:13> History of Present Illness - History of Present Illness History of Present Illness: Sridhar Alfaro Internal Medicine Resident- Consult Note on Behalf of Dr. Kam Subjective: CC: bleed from rectum HPI: Patient is a 74 year old female with past medical history of hyperlipidemia GI bleed, breast ca (remission), valvular heart disease, diverticulosis, diverticulitis, internal/external hemorrhoids, pancreatic cyst who presents to the emergency department for evaluation and treatment of bleeding from the rectum. Patient states she had two episodes of mason blood per rectum this morning without a specific provoking event. She went to the bathroom and noticed drops of bright red blood in the toilet and on the toilet paper. Denied associated bowel movement and rectal pain. Admits to associated bloating with increased flatus, and LRQ/ RLQ pain. The abdominal pain is characterized as a nonradiating dull aching and is rated at 6/10. The pain improves with BMs. Patient endorses mild dizziness and lightheadedness which have resolved since onset without acute intervention.Patient also states she experienced burning with urination which began two weeks ago. She was evaluated by her air motor repairer who started her on ciprofloxacin yesterday. Currently denies dysuria, urinary frequency, urgency, hematuria. Further denies fever, chills, SOB, chest pain, nausea, vomiting, diarrhea, and constipation. 12 system ROS reviewed and negative except mentioned in HPI. Past medical history: HLD, GI bleed, breast ca (remission), valvular heart disease, diverticulosis, diverticulitis, internal/external hemorrhoids, pancreatic cyst Past surgical history: Hemicolectomy w/ colostomy and reversal, B/L mastectomy Allergies: seasonal Social History: former tobacco user, quit 1992, Denies Alcohol or illicit drug use Family history: Angina (Mother), incarcerated bowel (father) Medications: Crestor, Rantidine, Xanax, Coreg PMD: Dr. Wilkes Cardio: Dr. Quintero GI: Dr. Kam Gen Surg: Dr. Osuna market research analyst: Dr. Amezquita Physical Examination: - Constitutional Appears: Non-toxic, No Acute Distress - Head Exam Head Exam: ATRAUMATIC, NORMAL INSPECTION - Eye Exam Eye Exam: EOMI, Normal appearance, no conjunctival pallor - ENT Exam ENT Exam: Mucous Membranes Moist - Neck Exam Neck exam: Positive for: Normal Inspection - Respiratory Exam Respiratory Exam: Clear to Auscultation Bilateral. absent: Rales, Rhonchi, Wheezes, Respiratory Distress - Cardiovascular Exam Cardiovascular Exam: REGULAR RHYTHM, +S1, +S2. absent: Gallop, Rubs, Systolic Murmur - GI/Abdominal Exam GI & Abdominal Exam: Normal Bowel Sounds, Soft, absent: Distended, Firm, Guarding, Rigid - Rectal Exam Rectal Exam: completed by ED physician- Present: Normal Rectal Tone, Nodule/Mass/Lesions (External skin tags; non-thrombosed, not actively bleeding. ), Other (Bright red blood.). No: Fissures - Extremities Exam Extremities exam: Negative for: calf tenderness, pedal edema - Back Exam Back exam: absent: CVA tenderness (L), CVA tenderness (R) - Neurological Exam Neurological exam: Alert, CN II-XII Intact, Oriented x3 - Skin Skin Exam: Dry, Intact, Normal Color, Warm Assessment and Plan: Patient is a 74 year old female with past medical history of HLD, GI bleed, Breast CA (Remission), Valvular Heart Disease, Diverticulosis, Diverticulitis, Pancreatic Cyst who presents to the emergency department for evaluation and treatment of with bleeding from the rectum. GI Hemorrhage Hyperlipidemia Mitral Valve Pathology Anxiety/ Insomnia Suspected UTI Prior studies - prior colonoscopy 10/29/2018- diverticulosis of entire colon, lipomatous ileocecal valve, patent end to end colo-colonic anatosmosis - prior endoscopy 10/29/2018- gastritis, normal esophagus, small hiatal hernia - keep NPO - protonix 40mg IV q12 - CBC q6h, Hgb > 8 as this is a cardiac patient - type and screen - 2 large bore peripheral IVs - start IVF half NS @ 75cc/hr - bleeding scan ordered and pending - GI consulted (Dr. Kam)- appreciate recommendations - DVT ppx- SCDs - GI ppx- protonix 40mg IV BID Patient case to be discussed with attending physician, Dr. Frye. Past Patient History - Infectious Disease Hx of Infectious Diseases: None - Tetanus Immunizations Tetanus Immunization: Unknown - Past Medical History & Family History Past Medical History?: Yes - Past Social History Smoking Status: Never Smoked - CARDIAC Hx Hypertension: Yes Other/Comment: "leaky valve" - PULMONARY Hx Respiratory Disorders: No Hx Bronchitis: Yes - NEUROLOGICAL Hx Neurological Disorder: No - HEENT Hx HEENT Problems: Yes (eyeglasses for reading) - RENAL Hx Chronic Kidney Disease: No - ENDOCRINE/METABOLIC Hx Endocrine Disorders: No - HEMATOLOGICAL/ONCOLOGICAL Hx Blood Transfusions: Yes Hx Blood Transfusion Reaction: No Hx Cancer: Yes (breast CA) - INTEGUMENTARY Hx Dermatological Problems: No - MUSCULOSKELETAL/RHEUMATOLOGICAL Hx Musculoskeletal Disorders: Yes Hx Falls: Yes - GASTROINTESTINAL Hx Gastrointestinal Disorders: Yes (hiatal hernia) Hx Colostomy: Yes Hx Diverticulitis: Yes (2011) Hx Gastroesophageal Reflux: Yes Other/Comment: gi bleed , pancreatic cyst - GENITOURINARY/GYNECOLOGICAL Hx Genitourinary Disorders: Yes - PSYCHIATRIC Hx Anxiety: Yes Hx Emotional Abuse: No Hx Physical Abuse: No Hx Substance Use: No - SURGICAL HISTORY Hx Mastectomy: Yes (cirilo 2004) Other/Comment: 11/2016 exp lap with colectomy/colostomy, 07/07/17 exp lap colostomy closure and lower anter bowel resection - ANESTHESIA Hx Anesthesia: Yes Hx Anesthesia Reactions: No Hx Malignant Hyperthermia: No Meds Allergies/Adverse Reactions: Allergies Allergy/AdvReac Type Severity Reaction Status Date / Time No Known Allergies Allergy Verified 01/11/19 20:25 - Medications Medications: Current Medications Alprazolam (Xanax) 0.25 mg PO Q6H PRN; Protocol PRN Reason: Insomnia Stop: 01/18/19 22:34 Last Admin: 01/11/19 22:49 Dose: 0.25 mg Atorvastatin Calcium (Lipitor) 20 mg PO DIN [facility] Carvedilol (Coreg) 3.125 mg PO BID [facility] Sodium Chloride (Sodium Chloride 0.45%) 1,000 mls @ 75 mls/hr IV .[id number] [facility] Last Admin: 01/11/19 21:29 Dose: 75 mls/hr Non-Formulary Medication (Fluticasone/Vilanterol [Breo Ellipta 100-25 Mcg Inh]) 1 inhaler INH DAILY [facility] Pantoprazole Sodium (Protonix Inj) 40 mg IVP Q12 [facility] Results - Vital Signs Recent Vital Signs: Last Vital Signs Temp 97.6 F 01/12/19 00:01 Pulse 61 01/12/19 05:59 Resp 20 01/12/19 00:01 BP 98/62 L 05/14/19 00:01 Pulse Ox 94 L 01/12/19 00:01 - Labs Result Diagrams: 01/11/19 23:15 01/11/19 17:00 Labs: Laboratory Results - last 24 hr 01/11/19 01/11/19 01/11/19 17:00 17:00 17:00 WBC 7.5 RBC 4.48 Hgb 12.1 Hct 38.7 MCV 86.4 MCH 27.0 MCHC 31.3 RDW 15.2 H Plt Count 199 MPV 10.8 Neut % (Auto) 72.5 H Lymph % (Auto) 19.4 L [place] % (Auto) 5.7 Eos % (Auto) 2.0 Baso % (Auto) 0.4 Lymph # (Auto) 1.5 [place] # (Auto) 0.4 Eos # (Auto) 0.2 Baso # (Auto) 0.03 Absolute Neuts (auto) 5.46 PT 12.3 INR 1.11 APTT 32.5 Sodium 143 Potassium 3.8 Chloride 106 Carbon Dioxide 26 Anion Gap 15 BUN 20 Creatinine 0.8 Est GFR ( Amer) > 60 Est GFR (Non-Af Amer) > 60 Random Glucose 94 Calcium 9.2 Total Bilirubin 0.3 AST 25 ALT 16 Alkaline Phosphatase 89 Total Protein 8.2 Albumin 4.3 Globulin 3.9 Albumin/Globulin Ratio 1.1 Amylase 68 Lipase 76 Urine Color Urine Appearance Urine pH Ur Specific [place] Urine Protein Urine Glucose (UA) Urine Ketones Urine Blood Urine Nitrate Urine Bilirubin Urine Urobilinogen Ur Leukocyte Esterase Urine RBC Urine WBC Ur Epithelial Cells Blood Type Antibody Screen BBK History Checked 01/11/19 01/11/19 01/11/19 17:00 21:35 23:15 WBC 6.7 RBC 4.23 Hgb 11.4 L Hct 36.3 MCV 85.8 MCH 27.0 MCHC 31.4 RDW 15.2 H Plt Count 174 MPV 10.6 Neut % (Auto) 70.4 H Lymph % (Auto) 20.4 L [place] % (Auto) 7.6 H Eos % (Auto) 1.3 L Baso % (Auto) 0.3 Lymph # (Auto) 1.4 [place] # (Auto) 0.5 Eos # (Auto) 0.1 Baso # (Auto) 0.02 Absolute Neuts (auto) 4.74 PT INR APTT Sodium Potassium Chloride Carbon Dioxide Anion Gap BUN Creatinine Est GFR ( Amer) Est GFR (Non-Af Amer) Random Glucose Calcium Total Bilirubin AST ALT Alkaline Phosphatase Total Protein Albumin Globulin Albumin/Globulin Ratio Amylase Lipase Urine Color Yellow Urine Appearance Clear Urine pH 6.0 Ur Specific [place] <= 1.005 Urine Protein Negative Urine Glucose (UA) Negative Urine Ketones Negative Urine Blood Negative Urine Nitrate Negative Urine Bilirubin Negative Urine Urobilinogen 0.2 Ur Leukocyte Esterase Trace H Urine RBC None Urine WBC 0 - 2 Ur Epithelial Cells 0 - 2 Blood Type A POSITIVE Antibody Screen Negative BBK History Checked Patient has bt <Kain Kam V - Last Filed: 01/13/19 00:29> Meds - Medications Medications: Current Medications Alprazolam (Xanax) 0.25 mg PO Q6H PRN; Protocol PRN Reason: Insomnia Stop: 01/18/19 22:34 Last Admin: 01/12/19 22:30 Dose: 0.25 mg Atorvastatin Calcium (Lipitor) 20 mg PO DIN [facility] Last Admin: 01/12/19 17:40 Dose: Not Given Carvedilol (Coreg) 3.125 mg PO BID [facility] Last Admin: 01/12/19 10:57 Dose: 3.125 mg Hydrocortisone (Anusol-Hc) 0 gm FL BID [facility] Last Admin: 01/12/19 18:46 Dose: 1 applic Sodium Chloride (Sodium Chloride 0.45%) 1,000 mls @ 75 mls/hr IV .[id number] [facility] Last Admin: 01/12/19 10:58 Dose: 75 mls/hr Non-Formulary Medication (Fluticasone/Vilanterol [Breo Ellipta 100-25 Mcg Inh]) 1 inhaler INH DAILY [facility] Last Admin: 01/12/19 10:00 Dose: Not Given Pantoprazole Sodium (Protonix Inj) 40 mg IVP Q12 [facility] Last Admin: 01/12/19 22:31 Dose: 40 mg Results - Vital Signs Recent Vital Signs: Last Vital Signs Temp 97.7 F 01/12/19 17:25 Pulse 78 01/12/19 18:00 Resp 20 01/12/19 17:25 BP 95/67 L 01/12/19 17:25 Pulse Ox 95 01/12/19 06:00 - Labs Result Diagrams: 01/12/19 16:25 01/12/19 05:44 Labs: Laboratory Results - last 24 hr 01/12/19 01/12/19 01/12/19 05:44 05:44 10:30 WBC 5.7 5.7 RBC 4.21 4.27 Hgb 11.3 L 11.4 L Hct 36.6 36.9 MCV 86.9 86.4 MCH 26.8 26.7 MCHC 30.9 L 30.9 L RDW 15.3 H 15.2 H Plt Count 168 175 MPV 10.5 10.5 Neut % (Auto) 68.9 H 73.8 H Lymph % (Auto) 20.8 L 17.4 L [place] % (Auto) 8.1 H 7.0 H Eos % (Auto) 1.8 1.4 L Baso % (Auto) 0.4 0.4 Lymph # (Auto) 1.2 1.0 L [place] # (Auto) 0.5 0.4 Eos # (Auto) 0.1 0.1 Baso # (Auto) 0.02 0.02 Absolute Neuts (auto) 3.90 4.19 Sodium 142 Potassium 3.8 Chloride 106 Carbon Dioxide 28 Anion Gap 11 BUN 17 Creatinine 0.8 Est GFR ( Amer) > 60 Est GFR (Non-Af Amer) > 60 Random Glucose 87 Calcium 9.0 Phosphorus 3.6 Magnesium 2.2 Total Bilirubin 0.3 AST 22 ALT 12 Alkaline Phosphatase 82 Total Protein 7.4 Albumin 3.8 Globulin 3.6 Albumin/Globulin Ratio 1.1 01/12/19 16:25 WBC 6.8 RBC 4.35 Hgb 11.6 L Hct 37.6 MCV 86.4 MCH 26.7 MCHC 30.9 L RDW 15.2 H Plt Count 195 MPV 10.9 Neut % (Auto) 76.6 H Lymph % (Auto) 18.1 L [place] % (Auto) 3.4 Eos % (Auto) 1.6 Baso % (Auto) 0.3 Lymph # (Auto) 1.2 [place] # (Auto) 0.2 Eos # (Auto) 0.1 Baso # (Auto) 0.02 Absolute Neuts (auto) 5.19 Sodium Potassium Chloride Carbon Dioxide Anion Gap BUN Creatinine Est GFR ( Amer) Est GFR (Non-Af Amer) Random Glucose Calcium Phosphorus Magnesium Total Bilirubin AST ALT Alkaline Phosphatase Total Protein Albumin Globulin Albumin/Globulin Ratio Attending/Attestation - Attestation I have personally seen and examined this patient.: Yes I have fully participated in the care of the patient.: Yes I have reviewed all pertinent clinical information: Yes Notes (Text): This is an addendum to the GI consultation report dictated by the resident. The patient was seen and evaluated earlier. Patient did not have any further episodes of bleeding. Hemoglobin remained stable. History of significant GI bleeding from diverticular source. Patient had a left common hemicolectomy. History of mucinous cyst of the pancreas being followed by Dr. Schneider in [facility]. Discussed with the patient's family at length. The etiology for bleeding should include diverticular hemorrhoid and also colitis to be considered With patient clinically improving we will advance the diet You have any recurrence of the bleeding or abdominal pain would consider CT. Bleeding scan was negative. 01/13/19 00:27
[2019-01-12 06:39] LABS: BASO # 0.02 K/mm3 (0.0-2.0); BASO % 0.4 % (0.0-3.0); EOS # 0.1 (0.0-0.7); EOS % 1.8 % (1.5-5.0); HEMOGLOBIN 11.3 g/dL (12.0-16.0); LYMPH # 1.2 (1.2-3.4); LYMPH % 20.8 % (22.0-35.0); MEAN CELL VOLUME 86.9 fl (80.0-105.0); MEAN CORPUSCULAR HEMOGLOBIN 26.8 pg (25.0-35.0); MEAN CORPUSCULAR HGB CONC 30.9 g/dl (31.0-37.0); MEAN PLATELET VOLUME 10.5 fl (7.0-11.0); MONO # 0.5 (0.1-0.6); MONO % 8.1 % (1.0-6.0); RBC 4.21 10^6/uL (3.5-6.1); RED CELL DISTRIBUTION WIDTH 15.3 % (11.5-14.5); WHITE BLOOD COUNT 5.7 10^3/uL (4.5-11.0)
[2019-01-12 07:15] LABS: ALB/GLOB RATIO 1.1 (1.1-1.8); ALBUMIN 3.8 g/dL (3.0-4.8); ALT/SGPT 12 U/L (7-56); AST/SGOT 22 U/L (14-36); BLOOD UREA NITROGEN 17 mg/dL (7-21); GFR NON-AFRICAN AMERICAN > 60
[2019-01-12] MEDS: [UNRECOGNIZED DRUG - OTHER] INH SCH (10:00)
--- NOTE | 2019-01-12 10:39 | CP.PCM.APN ---
Subjective - Date & Time of Evaluation Date of Evaluation: 01/12/19 Time of Evaluation: 09:15 - Subjective Subjective: pt seen and examined at bedside, pt expressing anxiety over episode of bloody bm, teary eyed, reassured pt - pt hemodynamically stable, in NAD called for bleeding scan results Review of Systems - Constitutional Constitutional: As Per HPI Objective - Vital Signs/Intake and Output Vital Signs (last 24 hours): Temp Pulse Resp BP Pulse Ox 97.4 F L 66 20 118/76 95 01/12/19 06:00 01/12/19 06:00 01/12/19 06:00 01/12/19 06:00 01/12/19 06:00 Intake and Output: 01/12/19 01/12/19 06:59 18:59 Intake Total 120 Balance 120 - Medications Medications: Current Medications Alprazolam (Xanax) 0.25 mg PO Q6H PRN; Protocol PRN Reason: Insomnia Stop: 01/18/19 22:34 Last Admin: 01/11/19 22:49 Dose: 0.25 mg Atorvastatin Calcium (Lipitor) 20 mg PO DIN [facility] Carvedilol (Coreg) 3.125 mg PO BID [facility] Sodium Chloride (Sodium Chloride 0.45%) 1,000 mls @ 75 mls/hr IV .[id number] [facility] Last Admin: 01/11/19 21:29 Dose: 75 mls/hr Non-Formulary Medication (Fluticasone/Vilanterol [Breo Ellipta 100-25 Mcg Inh]) 1 inhaler INH DAILY [facility] Pantoprazole Sodium (Protonix Inj) 40 mg IVP Q12 [facility] - Labs Labs: 01/12/19 05:44 01/12/19 05:44 PT 12.3 SECONDS (9.4-12.5) 01/11/19 17:00 INR 1.11 01/11/19 17:00 APTT 32.5 Seconds (26.9-38.3) 01/11/19 17:00 - Constitutional Appears: Non-toxic - Head Exam Head Exam: ATRAUMATIC, NORMOCEPHALIC - Eye Exam Eye Exam: Normal appearance Pupil Exam: NORMAL ACCOMODATION - ENT Exam ENT Exam: Normal Exam - Respiratory Exam Respiratory Exam: Clear to Ausculation Bilateral - Cardiovascular Exam Cardiovascular Exam: +S1, +S2 - GI/Abdominal Exam GI & Abdominal Exam: Soft - Rectal Exam Rectal Exam: Deferred - Extremities Exam Extremities Exam: Full ROM, Normal Capillary Refill - Neurological Exam Neurological Exam: Awake - Skin Skin Exam: Dry, Intact Assessment and Plan - Assessment and Plan (Free Text) Plan: A/P 74 yr old with female with pmh sig for hemorrhoids, htn, diverticulosis, GI bleed,colostomy with reversal, pancreatic cyst admitted with report of bloody bm.pt is now admitted with GI workup in progress pt had bleeding scan with results pending pt remains NPO on IV fluid, IV PPI will follow with GI recs and bleeding scan results. BPCI/TIC - BPCIA/TIC Educated pt/family on BPCIA/CIR/Med to Bed Programs: N/A Flyers given, including [facility] Beneficiary letter: N/A Pt/family verbalized understanding & agreed to program: N/A
[2019-01-12 10:43] LABS: BASO # 0.02 K/mm3 (0.0-2.0); BASO % 0.4 % (0.0-3.0); EOS # 0.1 (0.0-0.7); EOS % 1.4 % (1.5-5.0); HEMOGLOBIN 11.4 g/dL (12.0-16.0); LYMPH % 17.4 % (22.0-35.0); MEAN CELL VOLUME 86.4 fl (80.0-105.0); MEAN CORPUSCULAR HEMOGLOBIN 26.7 pg (25.0-35.0); MEAN CORPUSCULAR HGB CONC 30.9 g/dl (31.0-37.0); MEAN PLATELET VOLUME 10.5 fl (7.0-11.0); MONO # 0.4 (0.1-0.6); RBC 4.27 10^6/uL (3.5-6.1); RED CELL DISTRIBUTION WIDTH 15.2 % (11.5-14.5); WHITE BLOOD COUNT 5.7 10^3/uL (4.5-11.0)
--- NOTE | 2019-01-12 10:49 | NM ---
Date of service: 01/11/2019 PROCEDURE: Nuclear medicine gastrointestinal bleeding scan. HISTORY: BRB in stool COMPARISON: None available. TECHNIQUE: 4ccof patient blood was withdrawn and mixed with 25.6mCi of technetium ultra tagged. Images of the abdomen and pelvis were obtained in the anterior projection at 1 min intervals over a period of 45 min. FINDINGS: No abnormal extravasation of tracer was observed throughout the exam to indicate active bleeding within or outside the gastrointestinal tract. Physiologic activity was seen in the heart, liver, spleen and blood vessels. The report concurs with the preliminary [facility] report IMPRESSION: No evidence of active gastrointestinal bleeding.
[2019-01-12] MEDS: Sodium Chloride 0.45% 1,000 ML IV SCH ×2 (10:58→21:50)
--- NOTE | 2019-01-12 14:39 | CP.PCM.PN ---
<Vladimir Nelson - Last Filed: 01/12/19 15:03> Subjective - Date & Time of Evaluation Date of Evaluation: 01/12/19 Time of Evaluation: 10:00 - Subjective Subjective: Vladimir Nelson DO, PGY-1 Hospitalist Progress Note for Dr. Damon Patient was seen and examined at bedside this AM. She reports having one additio nal bowel movement this AM with smaller amount of bright red blood. She reports abdominal pain and bloating have both improved since admission. She also admits to some intermittent dizziness after having bloody BM which resolved after lying down. She otherwise has no additional complaints and denies fever/chills, CP, SOB, nausea/vomiting, or urinary complaints. Objective - Vital Signs/Intake and Output Vital Signs (last 24 hours): Temp Pulse Resp BP Pulse Ox 97.4 F L 71 20 117/76 95 01/12/19 12:00 01/12/19 12:00 01/12/19 12:00 01/12/19 12:00 01/12/19 06:00 Intake and Output: 01/12/19 01/12/19 06:59 18:59 Intake Total 120 Balance 120 - Medications Medications: Current Medications Alprazolam (Xanax) 0.25 mg PO Q6H PRN; Protocol PRN Reason: Insomnia Stop: 01/18/19 22:34 Last Admin: 01/11/19 22:49 Dose: 0.25 mg Atorvastatin Calcium (Lipitor) 20 mg PO DIN [facility] Carvedilol (Coreg) 3.125 mg PO BID [facility] Last Admin: 01/12/19 10:57 Dose: 3.125 mg Sodium Chloride (Sodium Chloride 0.45%) 1,000 mls @ 75 mls/hr IV .[id number] [facility] Last Admin: 01/12/19 10:58 Dose: 75 mls/hr Non-Formulary Medication (Fluticasone/Vilanterol [Breo Ellipta 100-25 Mcg Inh]) 1 inhaler INH DAILY [facility] Pantoprazole Sodium (Protonix Inj) 40 mg IVP Q12 [facility] Last Admin: 01/12/19 10:58 Dose: 40 mg - Labs Labs: 01/12/19 10:30 01/12/19 05:44 PT 12.3 SECONDS (9.4-12.5) 01/11/19 17:00 INR 1.11 01/11/19 17:00 APTT 32.5 Seconds (26.9-38.3) 01/11/19 17:00 - Constitutional Appears: Non-toxic, No Acute Distress - Head Exam Head Exam: ATRAUMATIC, NORMOCEPHALIC - Eye Exam Eye Exam: EOMI, PERRL - ENT Exam ENT Exam: Mucous Membranes Moist - Neck Exam Neck Exam: Full ROM. absent: Lymphadenopathy - Respiratory Exam Respiratory Exam: Clear to Ausculation Bilateral, NORMAL BREATHING PATTERN. absent: Accessory Muscle Use, Rales, Rhonchi, Wheezes, Respiratory Distress - Cardiovascular Exam Cardiovascular Exam: REGULAR RHYTHM, RRR, +S1, +S2. absent: Gallop, Rubs, Murmur - GI/Abdominal Exam GI & Abdominal Exam: Soft, Normal Bowel Sounds. absent: Guarding, Tenderness - Extremities Exam Extremities Exam: Full ROM. absent: Pedal Edema - Back Exam Back Exam: NORMAL INSPECTION - Neurological Exam Neurological Exam: Alert, Awake, Oriented x3 - Psychiatric Exam Psychiatric exam: Normal Affect, Normal Mood - Skin Skin Exam: Dry, Intact, Warm Assessment and Plan - Assessment and Plan (Free Text) Assessment: 74 yo F with PMH of HLD, prior lower GIB, breast CA (in remission), diverticulosis, diverticulitis, hemorrhoids, valvular heart disease, and pancreatic cysts admitted for concern of bright red blood in BM. Of note, she had EGD/colonoscopy completed for a similar complaint in 10/2018. Plan: Lower GIB May be 2/2 diverticular bleed vs hemorrhoid bleeding Patient has been relatively HD stable but did have episode of hypotension this AM which improved with IVF H/H remaining stable, repeat if having persistent bloody BM's, otherwise repeat in AM Most recent colonoscopy in 10/2018 identified extensive diverticulosis EGD was also completed at that time and found only gastritis Case discussed with GI on this visit, no plan for intervention at this time Will advance patient's diet slowly as tolerated Bleeding scan negative Continue protonix 40 mg IVP q12h GI following, all recs appreciated HLD Continue home crestor Unknown Mitral valve condition Continue coreg Follows with cardiology outpatient Anxiety/Insomnia Continue home xanax PRN Dysuria Patient reports persistent dysuria despite recent abx regimen by PMD DVT/GI PPX: SCD/protonix Full Code Full liquid diet, advance as tolerated, likely advance at dinner Monitor on telemetry Patient seen, examined with, and plan discussed with my attending Dr. Marisol Nelson D.O. IM Resident PGY-1 Pager: [phone] <Rossana Damon - Last Filed: 01/13/19 15:17> Objective - Vital Signs/Intake and Output Vital Signs (last 24 hours): Temp Pulse Resp BP Pulse Ox 97.1 F L 70 20 103/61 96 01/13/19 05:49 01/13/19 05:49 01/13/19 05:49 01/13/19 05:49 01/13/19 05:49 Intake and Output: 01/13/19 01/13/19 06:59 18:59 Intake Total 1380 225 Balance 1380 225 - Labs Labs: 01/13/19 06:40 01/13/19 06:40 PT 12.3 SECONDS (9.4-12.5) 01/11/19 17:00 INR 1.11 01/11/19 17:00 APTT 32.5 Seconds (26.9-38.3) 01/11/19 17:00 Attending/Attestation - Attestation I have personally seen and examined this patient.: Yes I have fully participated in the care of the patient.: Yes I have reviewed all pertinent clinical information, including history, physical exam and plan: Yes Notes (Text): 01/13/19 15:06 Attending note; Patient seen and examined with resident. Patient is alert and awake. Denies any abdominal pain, nausea, vomiting. Denies any GI bleed. Denies any chest pain, shortness of breath. Denies any urinary symptoms. Patient is a 74-year-old female with PMH of HLD, prior lower GIB, breast CA (in remission), diverticulosis, diverticulitis, hemorrhoids, valvular heart disease, and pancreatic cysts admitted for concern of bright red blood in BM. 1. Lower GI bleed; patient currently has no active bleeding. Hemoglobin stable. Bleeding scan is negative. Most likely secondary to hemorrhoids. on Anusol cream. Patient had recent colonoscopy showed diverticulosis. GI evaluation appreciated. 2. pancreatic cyst; needs surveillance as outpatient. GI evaluation and recommendations appreciated. Patient will follow-up with Dr. Kam in 1 week. 3. Hypertension; continue Coreg . 4. Hyperlipidemia ; continue Lipitor. Follow-up with PMD Dr. Wilkes upon discharge. Close follow-up with GI.
[2019-01-12 16:41] LABS: BASO # 0.02 K/mm3 (0.0-2.0); BASO % 0.3 % (0.0-3.0); EOS # 0.1 (0.0-0.7); EOS % 1.6 % (1.5-5.0); HEMOGLOBIN 11.6 g/dL (12.0-16.0); LYMPH # 1.2 (1.2-3.4); LYMPH % 18.1 % (22.0-35.0); MEAN CELL VOLUME 86.4 fl (80.0-105.0); MEAN CORPUSCULAR HEMOGLOBIN 26.7 pg (25.0-35.0); MEAN CORPUSCULAR HGB CONC 30.9 g/dl (31.0-37.0); MEAN PLATELET VOLUME 10.9 fl (7.0-11.0); MONO # 0.2 (0.1-0.6); MONO % 3.4 % (1.0-6.0); RBC 4.35 10^6/uL (3.5-6.1); RED CELL DISTRIBUTION WIDTH 15.2 % (11.5-14.5); WHITE BLOOD COUNT 6.8 10^3/uL (4.5-11.0)
[2019-01-12] MEDS: Hydrocortisone 2.5% Rectal Cream(30 gm) PR SCH (18:46)
[2019-01-13 01:33] VITALS: O2SAT 96
[2019-01-13 05:50] VITALS: BP 103/61; PULSE 70; TEMP 97.1
[2019-01-13 07:08] LABS: BASO # 0.03 K/mm3 (0.0-2.0); BASO % 0.5 % (0.0-3.0); EOS # 0.1 (0.0-0.7); EOS % 2.3 % (1.5-5.0); HEMOGLOBIN 11.6 g/dL (12.0-16.0); LYMPH # 1.2 (1.2-3.4); LYMPH % 20.2 % (22.0-35.0); MEAN CELL VOLUME 86.5 fl (80.0-105.0); MEAN CORPUSCULAR HEMOGLOBIN 26.9 pg (25.0-35.0); MEAN CORPUSCULAR HGB CONC 31.1 g/dl (31.0-37.0); MEAN PLATELET VOLUME 11.5 fl (7.0-11.0); MONO # 0.5 (0.1-0.6); MONO % 7.9 % (1.0-6.0); RBC 4.31 10^6/uL (3.5-6.1); RED CELL DISTRIBUTION WIDTH 15.2 % (11.5-14.5); WHITE BLOOD COUNT 6.1 10^3/uL (4.5-11.0)
[2019-01-13 07:31] LABS: ALBUMIN 3.9 g/dL (3.0-4.8); ALT/SGPT 24 U/L (7-56); AST/SGOT 24 U/L (14-36); BLOOD UREA NITROGEN 14 mg/dL (7-21); CALCIUM 9.4 mg/dL (8.4-10.5); GFR NON-AFRICAN AMERICAN > 60
[2019-01-13] MEDS: [UNRECOGNIZED DRUG - OTHER] INH SCH (09:43)
[2019-01-13] MEDS: Hydrocortisone 2.5% Rectal Cream(30 gm) PR SCH (09:44)
--- NOTE | 2019-01-13 11:26 | CP.PCM.PN ---
<StephMarcelo ayala - Last Filed: 01/13/19 11:22> Subjective - Date & Time of Evaluation Date of Evaluation: 01/13/19 Time of Evaluation: 09:10 - Subjective Subjective: PGY6 GI Fellow Progress Note Patient seen and examined bedside this morning. The patient states that she is feeling well today and denies further episodes of bloody stool. Tolerating diet without issue. No fever, chills. 12 system ROS performed and negative except where stated Objective - Vital Signs/Intake and Output Vital Signs (last 24 hours): Temp Pulse Resp BP Pulse Ox 97.1 F L 70 20 103/61 96 01/13/19 05:49 01/13/19 05:49 01/13/19 05:49 01/13/19 05:49 01/13/19 05:49 Intake and Output: 01/13/19 01/13/19 06:59 18:59 Intake Total 1380 225 Balance 1380 225 - Medications Medications: Current Medications Alprazolam (Xanax) 0.25 mg PO Q6H PRN; Protocol PRN Reason: Insomnia Stop: 01/18/19 22:34 Last Admin: 01/12/19 22:30 Dose: 0.25 mg Atorvastatin Calcium (Lipitor) 20 mg PO DIN [facility] Last Admin: 01/12/19 17:40 Dose: Not Given Carvedilol (Coreg) 3.125 mg PO BID [facility] Last Admin: 01/12/19 10:57 Dose: 3.125 mg Hydrocortisone (Anusol-Hc) 0 gm OR BID [facility] Last Admin: 01/13/19 09:44 Dose: 1 applic Sodium Chloride (Sodium Chloride 0.45%) 1,000 mls @ 75 mls/hr IV .[id number] [facility] Last Admin: 01/12/19 21:50 Dose: Not Given Non-Formulary Medication (Fluticasone/Vilanterol [Breo Ellipta 100-25 Mcg Inh]) 1 inhaler INH DAILY [facility] Last Admin: 01/13/19 09:43 Dose: Not Given Pantoprazole Sodium (Protonix Inj) 40 mg IVP Q12 [facility] Last Admin: 01/13/19 09:43 Dose: 40 mg - Labs Labs: 01/13/19 06:40 01/13/19 06:40 PT 12.3 SECONDS (9.4-12.5) 01/11/19 17:00 INR 1.11 01/11/19 17:00 APTT 32.5 Seconds (26.9-38.3) 01/11/19 17:00 - Constitutional Appears: Non-toxic, No Acute Distress - Eye Exam Eye Exam: EOMI, PERRL - ENT Exam ENT Exam: Mucous Membranes Moist - Respiratory Exam Respiratory Exam: Clear to Ausculation Bilateral. absent: Rales, Rhonchi, Wheezes - Cardiovascular Exam Cardiovascular Exam: RRR, +S1, +S2 - GI/Abdominal Exam GI & Abdominal Exam: Soft, Normal Bowel Sounds. absent: Distended, Firm, Guarding, Rigid, Tenderness, Organomegaly - Extremities Exam Extremities Exam: Normal Inspection. 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 (records from prior diagnostic studies not available to me at this time) Plan: -Diet as tolerated - stressed importance of high fiber diet given known diverticulosis -No further bleeding noted; recent endoscopic evaluations reviewed -D/C PPI -Patient clear for D/C from GI standpoint -Regarding the patient's pancreatic cyst - prior EUS/FNA showed vicous fluid with high CEA and thus lesion 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 -Lesion has been stable in size on prior scans at approximately 1x2cm -Encourage annual surveillance with MRCP at this juncture (10/2019 would be next scan) as no high-risk characteristics were present on prior reviewed imaging (cyst is <3cm, not growing, no signs of obstruction, no change in PD) -Ongoing risk/benefit discussion regarding surveillance with patient; all findings have been explained to patient and she understands significance of lesion and need for follow up <Kain Kam V - Last Filed: 01/13/19 20:36> Objective - Vital Signs/Intake and Output Vital Signs (last 24 hours): Temp Pulse Resp BP Pulse Ox 97.1 F L 70 20 103/61 96 01/13/19 05:49 01/13/19 05:49 01/13/19 05:49 01/13/19 05:49 01/13/19 05:49 Intake and Output: 01/13/19 01/14/19 18:59 06:59 Intake Total 225 Balance 225 - Labs Labs: 01/13/19 06:40 01/13/19 06:40 PT 12.3 SECONDS (9.4-12.5) 01/11/19 17:00 INR 1.11 01/11/19 17:00 APTT 32.5 Seconds (26.9-38.3) 01/11/19 17:00 Attending/Attestation - Attestation I have personally seen and examined this patient.: Yes I have fully participated in the care of the patient.: Yes I have reviewed all pertinent clinical information, including history, physical exam and plan: Yes Notes (Text): This patient was seen and evaluated along with the GI fellow earlier. There is an addendum to the GI progress report dictated by the fellow. Patient is tolerating diet and no further episodes of bleeding hemoglobin stable patient may be discharged from GI perspective. Patient does have a mucinous cyst cystic lesion of the pancreas patient is being followed by Dr. Nicole at [facility]. 01/13/19 20:35
--- NOTE | 2019-01-13 15:36 | CP.PCM.DIS ---
<Vladimir Nelson - Last Filed: 01/13/19 15:30> Provider - Provider Date of Admission: 01/11/19 17:54 Attending physician: Rossana Damon MD Primary care physician: Jeramie Wilkes MD Consults: 01/11/19 17:45 Consult [Physician Consult] Stat Comment: Consulting Provider: Kain Kam V Consulting Physician: Kain Kam V Reason for Consult: GI bleed Time Spent in preparation of Discharge (in minutes): 45 Diagnosis - Discharge Diagnosis (1) Gastrointestinal bleed Status: Resolved (2) Rectal bleed Status: Resolved Hospital Course - Lab Results Lab Results: Most Recent Lab Values WBC 6.1 10^3/uL (4.5-11.0) 01/13/19 06:40 RBC 4.31 10^6/uL (3.5-6.1) 01/13/19 06:40 Hgb 11.6 g/dL (12.0-16.0) L 01/13/19 06:40 Hct 37.3 % (36.0-48.0) 01/13/19 06:40 MCV 86.5 fl (80.0-105.0) 01/13/19 06:40 MCH 26.9 pg (25.0-35.0) 01/13/19 06:40 MCHC 31.1 g/dl (31.0-37.0) 01/13/19 06:40 RDW 15.2 % (11.5-14.5) H 01/13/19 06:40 Plt Count 184 10^3/uL (120.0-450.0) 01/13/19 06:40 MPV 11.5 fl (7.0-11.0) H 01/13/19 06:40 Neut % (Auto) 69.1 % (50.0-68.0) H 01/13/19 06:40 Lymph % (Auto) 20.2 % (22.0-35.0) L 01/13/19 06:40 Piatt % (Auto) 7.9 % (1.0-6.0) H 01/13/19 06:40 Eos % (Auto) 2.3 % (1.5-5.0) 01/13/19 06:40 Baso % (Auto) 0.5 % (0.0-3.0) 01/13/19 06:40 Lymph # (Auto) 1.2 (1.2-3.4) 01/13/19 06:40 Piatt # (Auto) 0.5 (0.1-0.6) 01/13/19 06:40 Eos # (Auto) 0.1 (0.0-0.7) 01/13/19 06:40 Baso # (Auto) 0.03 K/mm3 (0.0-2.0) 01/13/19 06:40 Absolute Neuts (auto) 4.20 (1.4-6.5) 01/13/19 06:40 PT 12.3 SECONDS (9.4-12.5) 01/11/19 17:00 INR 1.11 01/11/19 17:00 APTT 32.5 Seconds (26.9-38.3) 01/11/19 17:00 Sodium 142 mmol/L (132-148) 01/13/19 06:40 Potassium 4.4 mmol/L (3.6-5.0) 01/13/19 06:40 Chloride 105 mmol/L (98-107) 01/13/19 06:40 Carbon Dioxide 30 mmol/L (21-33) 01/13/19 06:40 Anion Gap 11 (10-20) 01/13/19 06:40 BUN 14 mg/dL (7-21) 01/13/19 06:40 Creatinine 0.9 mg/dl (0.7-1.2) 01/13/19 06:40 Est GFR ( Amer) > 60 01/13/19 06:40 Est GFR (Non-Af Amer) > 60 01/13/19 06:40 Random Glucose 93 mg/dL (70-110) 01/13/19 06:40 Calcium 9.4 mg/dL (8.4-10.5) 01/13/19 06:40 Phosphorus 3.6 mg/dL (2.5-4.5) 01/12/19 05:44 Magnesium 2.2 mg/dL (1.7-2.2) 01/12/19 05:44 Total Bilirubin 0.3 mg/dL (0.2-1.3) 01/13/19 06:40 AST 24 U/L (14-36) 01/13/19 06:40 ALT 24 U/L (7-56) 01/13/19 06:40 Alkaline Phosphatase 86 U/L (38-126) 01/13/19 06:40 Total Protein 7.7 g/dL (5.8-8.3) 01/13/19 06:40 Albumin 3.9 g/dL (3.0-4.8) 01/13/19 06:40 Globulin 3.8 gm/dL 01/13/19 06:40 Albumin/Globulin Ratio 1.0 (1.1-1.8) L 01/13/19 06:40 Amylase 68 U/L (35-125) 01/11/19 17:00 Lipase 76 U/L (23-300) 01/11/19 17:00 Urine Color Yellow (YELLOW) 01/11/19 21:35 Urine Appearance Clear (CLEAR) 01/11/19 21:35 Urine pH 6.0 (4.7-8.0) 01/11/19 21:35 Ur Specific [place] <= 1.005 (1.005-1.035) 01/11/19 21:35 Urine Protein Negative mg/dL (<30 mg/dL) 01/11/19 21:35 Urine Glucose (UA) Negative mg/dL (NEGATIVE) 01/11/19 21:35 Urine Ketones Negative mg/dL (NEGATIVE) 01/11/19 21:35 Urine Blood Negative (NEGATIVE) 01/11/19 21:35 Urine Nitrate Negative (NEGATIVE) 01/11/19 21:35 Urine Bilirubin Negative (NEGATIVE) 01/11/19 21:35 Urine Urobilinogen 0.2 E.U./dL (<1 E.U./dL) 01/11/19 21:35 Ur Leukocyte Esterase Trace Dara/uL (NEGATIVE) H 01/11/19 21:35 Urine RBC None /hpf (0-2) 01/11/19 21:35 Urine WBC 0 - 2 /hpf (0-6) 01/11/19 21:35 Ur Epithelial Cells 0 - 2 /hpf (0-5) 01/11/19 21:35 Blood Type A POSITIVE 01/11/19 17:00 Antibody Screen Negative 01/11/19 17:00 BBK History Checked Patient has bt 01/11/19 17:00 - Hospital Course Hospital Course: Vladimir Nelson DO, PGY-1 Hospitalist Discharge Summary for Dr. Damon Prior to admission: Patient is a 74 year old female with PMH of HLD, prior lower GIB, breast CA (in remission), diverticulosis, diverticulitis, hemorrhoids, valvular heart disease, and pancreatic cysts admitted for concern of bright red blood per rectum in the toilet bowel on the day prior to p resentation. She had EGD/colonoscopy completed for a similar complaint in 10/2018 which showed non-specific gastritis and diverticulosis in the colon. She was subsequently admitted for management of possible diverticular vs hemorrhoidal bleed. Hospitalization course: Patient had an additional episode of streaks of blood in BM x 1 in the hospital. Her H/H was monitored closely and remained > 11 thr oughout admission. She remained HD stable and had no complaints of abdominal pain/nausea/vomiting. GI was consulted and recommended no intervention at the time and to advance patient's diet. Patient was initially NPO but then diet was advanced slowly without increase in bleeding. On examination this AM, she is awake, alert and tolerating diet well without nausea/vomiting. H/H this AM remaining at the same level > 11. Patient was given appropriate f/u instructions as below as well as prescription for Anusol cream for hemorrhoids. Discharge plan was discussed with patient. All questions were answered. Patient seen, examined with, and discharge plan discussed with my attending Dr. Marisol Nelson D.O. IM Resident PGY-1 Discharge Exam - Head Exam Head Exam: ATRAUMATIC, NORMOCEPHALIC - Eye Exam Eye Exam: EOMI, PERRL - ENT Exam ENT Exam: Mucous Membranes Moist - Neck Exam Neck exam: Full Rom - Respiratory Exam Respiratory Exam: Clear to PA & Lateral, NORMAL BREATHING PATTERN, UNREMARKABLE. absent: Accessory Muscle Use, Rales, Rhonchi, Wheezes, Respiratory Distress - Cardiovascular Exam Cardiovascular Exam: REGULAR RHYTHM, RRR, +S1, +S2. absent: Diastolic murmur, Gallop, Rubs, Systolic Murmur - GI/Abdominal Exam GI & Abdominal Exam: Normal Bowel Sounds, Soft, Unremarkable. absent: Tenderness - Extremities Exam Extremities exam: full ROM, normal inspection - Back Exam Back exam: NORMAL INSPECTION - Neurological Exam Neurological exam: Alert, Oriented x3 - Psychiatric Exam Psychiatric exam: Normal Affect, Normal Mood - Skin Skin Exam: Dry, Intact, Warm Discharge Plan - Discharge Medications Prescriptions: Hydrocortisone 2.5% (Rectal) [Anusol-HC] 30 applic MS BID #1 tube - Follow Up Plan Condition: GOOD Disposition: HOME/ ROUTINE Instructions: Hemorrhoids, Gastrointestinal Bleeding (DC) Additional Instructions: Please follow up with your primary medical doctor, Dr. Wilkes, within 3-5 days of discharge. Please follow up with the stomach doctor, Dr. Kam, within 1 week of discharge. Please continue to take your home medications as previously prescribed. If any of your symptoms return or worsen, please return to nearest emergency department. Referrals: Jeramie Wilkes MD [Primary Care Provider] - Kain Kam MD [Medical Doctor] - <Rossana Damon - Last Filed: 01/13/19 16:15> Provider - Provider Date of Admission: 01/11/19 17:54 Attending physician: Rossana Damon MD Primary care physician: Jeramie Wilkes MD Consults: 01/11/19 17:45 Consult [Physician Consult] Stat Comment: Consulting Provider: Kain Kam V Consulting Physician: Kain Kam V Reason for Consult: GI bleed Hospital Course - Lab Results Lab Results: Most Recent Lab Values WBC 6.1 10^3/uL (4.5-11.0) 01/13/19 06:40 RBC 4.31 10^6/uL (3.5-6.1) 01/13/19 06:40 Hgb 11.6 g/dL (12.0-16.0) L 01/13/19 06:40 Hct 37.3 % (36.0-48.0) 01/13/19 06:40 MCV 86.5 fl (80.0-105.0) 01/13/19 06:40 MCH 26.9 pg (25.0-35.0) 01/13/19 06:40 MCHC 31.1 g/dl (31.0-37.0) 01/13/19 06:40 RDW 15.2 % (11.5-14.5) H 01/13/19 06:40 Plt Count 184 10^3/uL (120.0-450.0) 01/13/19 06:40 MPV 11.5 fl (7.0-11.0) H 01/13/19 06:40 Neut % (Auto) 69.1 % (50.0-68.0) H 01/13/19 06:40 Lymph % (Auto) 20.2 % (22.0-35.0) L 01/13/19 06:40 Piatt % (Auto) 7.9 % (1.0-6.0) H 01/13/19 06:40 Eos % (Auto) 2.3 % (1.5-5.0) 01/13/19 06:40 Baso % (Auto) 0.5 % (0.0-3.0) 01/13/19 06:40 Lymph # (Auto) 1.2 (1.2-3.4) 01/13/19 06:40 Piatt # (Auto) 0.5 (0.1-0.6) 01/13/19 06:40 Eos # (Auto) 0.1 (0.0-0.7) 01/13/19 06:40 Baso # (Auto) 0.03 K/mm3 (0.0-2.0) 01/13/19 06:40 Absolute Neuts (auto) 4.20 (1.4-6.5) 01/13/19 06:40 PT 12.3 SECONDS (9.4-12.5) 01/11/19 17:00 INR 1.11 01/11/19 17:00 APTT 32.5 Seconds (26.9-38.3) 01/11/19 17:00 Sodium 142 mmol/L (132-148) 01/13/19 06:40 Potassium 4.4 mmol/L (3.6-5.0) 01/13/19 06:40 Chloride 105 mmol/L (98-107) 01/13/19 06:40 Carbon Dioxide 30 mmol/L (21-33) 01/13/19 06:40 Anion Gap 11 (10-20) 01/13/19 06:40 BUN 14 mg/dL (7-21) 01/13/19 06:40 Creatinine 0.9 mg/dl (0.7-1.2) 01/13/19 06:40 Est GFR ( Amer) > 60 01/13/19 06:40 Est GFR (Non-Af Amer) > 60 01/13/19 06:40 Random Glucose 93 mg/dL (70-110) 01/13/19 06:40 Calcium 9.4 mg/dL (8.4-10.5) 01/13/19 06:40 Phosphorus 3.6 mg/dL (2.5-4.5) 01/12/19 05:44 Magnesium 2.2 mg/dL (1.7-2.2) 01/12/19 05:44 Total Bilirubin 0.3 mg/dL (0.2-1.3) 01/13/19 06:40 AST 24 U/L (14-36) 01/13/19 06:40 ALT 24 U/L (7-56) 01/13/19 06:40 Alkaline Phosphatase 86 U/L (38-126) 01/13/19 06:40 Total Protein 7.7 g/dL (5.8-8.3) 01/13/19 06:40 Albumin 3.9 g/dL (3.0-4.8) 01/13/19 06:40 Globulin 3.8 gm/dL 01/13/19 06:40 Albumin/Globulin Ratio 1.0 (1.1-1.8) L 01/13/19 06:40 Amylase 68 U/L (35-125) 01/11/19 17:00 Lipase 76 U/L (23-300) 01/11/19 17:00 Urine Color Yellow (YELLOW) 01/11/19 21:35 Urine Appearance Clear (CLEAR) 01/11/19 21:35 Urine pH 6.0 (4.7-8.0) 01/11/19 21:35 Ur Specific [place] <= 1.005 (1.005-1.035) 01/11/19 21:35 Urine Protein Negative mg/dL (<30 mg/dL) 01/11/19 21:35 Urine Glucose (UA) Negative mg/dL (NEGATIVE) 01/11/19 21:35 Urine Ketones Negative mg/dL (NEGATIVE) 01/11/19 21:35 Urine Blood Negative (NEGATIVE) 01/11/19 21:35 Urine Nitrate Negative (NEGATIVE) 01/11/19 21:35 Urine Bilirubin Negative (NEGATIVE) 05/13/19 21:35 Urine Urobilinogen 0.2 E.U./dL (<1 E.U./dL) 01/11/19 21:35 Ur Leukocyte Esterase Trace Dara/uL (NEGATIVE) H 01/11/19 21:35 Urine RBC None /hpf (0-2) 01/11/19 21:35 Urine WBC 0 - 2 /hpf (0-6) 01/11/19 21:35 Ur Epithelial Cells 0 - 2 /hpf (0-5) 01/11/19 21:35 Blood Type A POSITIVE 01/11/19 17:00 Antibody Screen Negative 01/11/19 17:00 BBK History Checked Patient has bt 01/11/19 17:00 Attending/Attestation - Attestation I have personally seen and examined this patient.: Yes I have fully participated in the care of the patient.: Yes I have reviewed all pertinent clinical information, including history, physical exam and plan: Yes Notes (Text): 01/13/19 16:15 Attending note; Patient seen and examined with resident. Patient is alert and awake. Denies any abdominal pain, nausea, vomiting. Denies any GI bleed. Tolerating regular diet. Patient is a 74-year-old female with PMH of HLD, prior lower GIB, breast CA (in remission), diverticulosis, diverticulitis, hemorrhoids, valvular heart disease, and pancreatic cysts admitted for concern of bright red blood in BM. 1. Lower GI bleed; patient currently has no active bleeding. Hemoglobin stable. Bleeding scan is negative. Most likely secondary to hemorrhoids. on Anusol cream. Patient had recent colonoscopy showed diverticulosis. GI evaluation appreciated. Tolerating regular diet. 2. pancreatic cyst; needs surveillance as outpatient. GI evaluation and recommendations appreciated. Patient will follow-up with Dr. Kam in 1 week. 3. Hypertension; continue Coreg . 4. Hyperlipidemia ; continue Lipitor. Charge home today. Follow-up with PMD Dr. Wilkes upon discharge. Close follow-up with GI.
== END 2019-01-13 11:44 | disposition home or self-care (01) ==
LOC: ED 16:23 → ERH 17:54 → 2RNO 21:37
PROVIDERS: ADMIT Internal Medicine; ATTEND Internal Medicine
DX: K64.8 Other hemorrhoids (principal); K62.5 Hemorrhage of anus and rectum; I10 Essential (primary) hypertension; K29.70 Gastritis, unspecified, without bleeding; K57.30 Diverticulosis of large intestine without perforation or abscess without bleeding; K64.4 Residual hemorrhoidal skin tags; K86.2 Cyst of pancreas; E78.5 Hyperlipidemia, unspecified; F41.9 Anxiety disorder, unspecified; G47.00 Insomnia, unspecified; R30.0 Dysuria; Z87.891 Personal history of nicotine dependence; Z85.3 Personal history of malignant neoplasm of breast; Z90.12 Acquired absence of left breast and nipple; Z82.49 Family history of ischemic heart disease and other diseases of the circulatory system; Z93.3 Colostomy status
CPT/HCPCS: 36415; 78278; 80053; 81001; 82150; 83690; 83735; 84100; 85025; 85610; 85730; 86850; 86900; 93005; 96374; 99285; A9560; C9113; G0378; J7030